=== PATIENT | male | born 1945 | race Caucasian/White ===

== ENCOUNTER 2016-06-14 19:50 | Outpatient (CLI) | payer MEDICARE, MEDICAID ==
[~2016-06-14 19:50] MED LIST: ACET325T49 PO; AMIT10TA6; AMIT10TA6 PO; AMLO10TA82 PO; AMLO5TAB2 PO; ASCO10006 PO; ASCO500C14 PO; ASP325T PO; ASPI-983 PO; BPR150TCR; BPR150TCR PO; BUPR300T43 PO; BUPR300T51 PO; CITA20TA7 PO; CLOT15CR4 TP; CTLP20T PO; DCS100C; DETROL LA; DOCU-161 PO; DOCU100C37 PO; ENOX40DI8 SC; FLC100T1 PO; FLUC100T6 PO; FRSM20T PO; GLPZ5T; HCT25T; INSU100C7 SQ; INSU100I10 SQ; INSU100V3 SC; INSU100V5 SQ; INSU100V6 SQ; IPRA3AMP INH; KCL10CCR PO; LEVO500T69 PO; LEVO750T39 PO; LEVO750T9 PO; LOSA100T28 PO; LOSA50TA36 PO; METF-380 PO; METO-274 PO; METO100T5 PO; METO25TA2 PO; MICO90PO TOP; MTL2.5T; NEBI5TAB8; NF-ESOM40C PO; NF-KET2% TOP; NITR100C3 PO; NORM2DIS3 IV; NYST1POW15 TOP; OMG1KC PO; ONDA-43 PO; ONDAN4ODT PO; OXYC-12 PO; PANT40TA3 PO; PEG250PW; PIOG1TAB2; PNT40TEC PO; POLY119P5 PO; POLY17PO; POLY17PO23 PO; POLY255P PO; POLYETHYLENE GLYCOL; POTA10CA43 PO; RISP2TAB18; RISP2TAB3 PO; RSP2T; RSP2T PO; SCR1T PO; SIMV10TA3 PO; TELM1TAB; TICA90TA PO; TMSL.4C PO; TOLTA4 PO; TRAZ150T42; TRAZ150T42 PO; TRAZ150T72 PO; TROS20TA3 PO; VITA400T9 PO; polyethylene glycol PO
--- OUTSIDE RECORDS SUMMARY | 2016-06-14 21:34 | XMS REPORT | Continuity of Care Document ---
Author Author [facility] Organization [facility] Address Unknown Phone Unavailable Care Team Providers Care [employer] Name Role Phone Daniel Alcantara PCP [phone] Source Comments Some departments are not documenting in the electronic medical record. If you do not see the information that you expected, contact Release of Information in the Health Information Management department at [phone] for further assistance in locating additional records.[facility] Active Allergies and Adverse Reactions Allergen Noted Date Severity Reactions Comments Cymbalta 09/10/2014 Low UNKNOWN Penicillins 09/10/2014 Medium RASH Current Medications Prescription Sig. Disp. Refills Start End Date Status Date risperiDONE (RISPERDAL) 2 Take 2 mg by mouth twice Active mg tablet daily. BUPROPION HCL (WELLBUTRIN Take by mouth. Active PO) traZODone (DESYREL) 150 Take 150 mg by mouth at Active mg tablet bedtime daily. PANTOPRAZOLE SODIUM Take by mouth. Active (PROTONIX PO) METOPROLOL TARTRATE PO Take by mouth. Active AMLODIPINE BESYLATE Take by mouth. Active (AMLODIPINE PO) SIMVASTATIN (ZOCOR PO) Take by mouth. Active INSULIN Inject into area(s) as Active GLARGINE,HUM.REC.ANLOG directed. (LANTUS SC) linagliptin (TRADJENTA) 5 Take 5 mg by mouth daily. Active mg tab trospium(+) (SANCTURA) 20 Take 1 Tab by mouth twice 180 Tab 3 Active mg tablet daily before meals. 16 Active Problems Problem Noted Date Incontinence 11/22/2015 Overview: 11/22/15: Mr. Ann was previously seen by Dr. Mccauley. He has urge and likely overflow incontinence as he is drinking at least 4 liters of fluids soda, tea, coffee, some water per day and only voiding q5h. He takes Flomax for weak stream and has tried multiple anticholinergic medications without relief. 04/14/16: Improved UUI after decreasing fluid intake. Still w/ nocturnal enuresis. History of BOBO and not using CPAP. - Uroflow: qMax 28.4, qAve 131, voided volume 484 mls L ast Assessment & Plan: Daytime symptoms improved with reduction of fluid and caffeine intake. Continues to be bothered by nocturnal enuresis. He has a history of BOBO and does not wear his CPAP; this is likely the cause of his nighttime symptoms. - Continue caffeine and fluid limitation - Encouraged to begin using CPAP again. - Return to clinic PRN. Most Recent Encounters Date Type Specialty Providers Description 04/24/2016 Office Visit Urology Nan Kaufman MD Incontinence ( Primary Dx) Social History Tobacco Use Types Packs/Day Years Used Date Never Smoker Smokeless Tobacco: Never Used Alcohol Use Drinks/Week oz/Week Comments No Last Filed Vital Signs Vital Sign Reading Time Taken Blood Pressure 147/94 04/24/2016 4:02 PM MACHINIST BRAKE Pulse 88 04/24/2016 4:02 PM MACHINIST BRAKE Temperature - - Respiratory Rate 16 11/22/2015 2:32 PM CDT Height 1.753 m (5' 9") 04/24/2016 4:02 PM MACHINIST BRAKE Weight 108.863 kg (240 lb) 04/24/2016 4:02 PM MACHINIST BRAKE Body Mass Index 35.43 04/24/2016 4:02 PM MACHINIST BRAKE Oxygen Saturation - - Plan of Care Health Maintenance Due Date Last Done Comments Hepatitis C Screening 1945 Physical (Comprehensive) 1953 Exam Pertussis Vaccine 1957 Tetanus Vaccine 1963 Dilated Eye Exam 1964 Foot Exam 1964 Microalbumin 1964 Colorectal Cancer 1996 Screening Shingles Vaccine 2006 Prevnar/Pneumovax (#1) 2011 Influenza Vaccine 01/06/2016 Hba1c 05/24/2016 11/22/2015 Results from Last 3 Months Not on file
== END 2016-06-15 06:50 | disposition home or self-care (01) ==
LOC: SLEEP 19:50
PROVIDERS: ATTEND Internal Medicine Cardiovascular Disease
DX: G47.33 Obstructive sleep apnea (adult) (pediatric) (principal)
CPT/HCPCS: 95811

== ENCOUNTER 2016-07-24 14:06 | Observation (INO) | payer MEDICARE ==
[~2016-07-24] VITALS: Ht 172.7 cm; Wt 116.4 kg
--- OUTSIDE RECORDS SUMMARY | 2016-07-24 14:11 | XMS REPORT | Continuity of Care Document ---
Author Author [facility] Organization [facility] Address Unknown Phone Unavailable Care Team Providers Care [employer] Former Name Role Phone Daniel Alcantara PCP [phone] Source Comments Some departments are not documenting in the electronic medical record. If you do not see the information that you expected, contact Release of Information in the Health Information Management department at [phone] for further assistance in locating additional records.[facility] Active Allergies and Adverse Reactions Allergen Noted [...] Recent Encounters Date Type Specialty Providers Description 07/08/2016 Orders Only Urology Carlos Hare PA-C Urinary incontinence, unspecified type (Primary Dx) Social History Tobacco Use Types Packs/Day Years Used Date Never Smoker Smokeless Tobacco: Never Used Alcohol Use Drinks/Week oz/Week Comments No Last Filed Vital Signs Vital Sign Reading Time Taken Blood Pressure 147/94 04/24/2016 4:02 PM DRY MOLDER Pulse 88 04/24/2016 4:02 PM DRY MOLDER Temperature - - Respiratory Rate 16 11/22/2015 2:32 PM CDT Height 1.753 m (5' 9") 04/24/2016 4:02 PM DRY MOLDER Weight 108.863 kg (240 lb) 04/24/2016 4:02 PM DRY MOLDER Body Mass Index 35.43 04/24/2016 4:02 PM DRY MOLDER Oxygen Saturation - - Plan of Care Health Maintenance Due Date Last Done Comments Hepatitis C Screening 1946 Physical (Comprehensive) 1953 Exam Pertussis Vaccine 1957 Tetanus Vaccine 1963 Dilated Eye Exam 1964 Foot Exam 1964 Microalbumin 1964 Colorectal Cancer 1996 Screening Shingles Vaccine 2006 Prevnar/Pneumovax (#1) 2011 Hba1c 05/24/2016 11/22/2015 Influenza Vaccine 01/05/2017 Results from Last 3 Months Not on file
[2016-07-24] MEDS ORDERED: NS IV 500 ML 500 ML IV ONE (14:39)
--- NOTE | 2016-07-24 14:44 | ED General ---
General Chief Complaint: Neurological Problems Stated Complaint: WEAKNESS Nursing Triage Note: TO ED PER EMS FROM [facility]. ACCORDING TO STAFF HAS HAD MUTIPLE ALL FROM SUN - SUNDAY. HAD LAB DRAWN TODAY SHOWED LOW NA. WAS TO GO TO OP AND HAVE FLUIDS. PATIENT TO WEAK TO GET IN VAN CALLED [facility] WITH DR LANCE ORDER TO [facility]. Nursing Sepsis Screen: No Definite Risk Source of Information: Patient, Snf Records Exam Limitations: No Limitations History of Present Illness Time Seen by Provider: 14:43 Initial Comments 71 -year-old male patient presents to the emergency Department with reports of weakness and low sodium on labs earlier today. Patient reportedly was to have outpatient fluids, however staff could not give patient in the plan. Patient was sent to the emergency department for further evaluation. Patient resides at [facility] assisted living. Unable to stand or perform ADLs. Staff reports patient has progressively gotten worse over the last week. has had multiple falls in the last 4 days. Timing/Duration: 4-5 Days, Getting Worse Modifying Factors: worse with Other (denies modifying factors) Allergies and Home Medications Allergies Coded Allergies: Penicillins (Unverified Allergy, Mild, HIVES, 09/19/08) duloxetine HCl (Verified Allergy, Mild, 08/20/11) Home Medications Acetaminophen 325 Mg Tablet, 650 MG PO Q4H PRN for PAIN/TEMP, (Reported) Albuterol Sulfate 1 Puff Puff, 2 PUFF IH Q4H PRN for SHORTNESS OF BREATH, ( Reported) 1 PUFF = 90 MCG Amlodipine Besylate 10 Mg Tablet, 10 MG PO DAILY, (Reported) Ascorbic Acid 1,000 Mg Tablet, 1,500 MG PO DAILY, (Reported) TAKES 1 & 1/2 (1000MG) TABLET Aspirin 81 Mg Tablet.dr, 81 MG PO DAILY, (Reported) Bupropion HCl 100 Mg Tablet, 300 MG PO DAILY, (Reported) Cefdinir 300 Mg Capsule, 300 MG PO BID, #8 Prescribed by: CARLOS COLUNGA on 07/26/16 1122 Citalopram Hydrobromide 20 Mg Tablet, 20 MG PO DAILY, (Reported) Docusate Sodium 100 Mg Capsule, 100 MG PO BID, (Reported) Insulin Glargine,Hum.rec.anlog 100 Unit/1 Ml Insuln.pen, 25 UNITS SQ HS, ( Reported) Levofloxacin 500 Mg Tablet, 500 MG PO DAILY, #10 Ref 0 Prescribed by: TREVOR MCCABE on 08/25/162018 Losartan Potassium 100 Mg Tablet, 100 MG PO DAILY, (Reported) Metoprolol Succinate 50 Mg Tab.er.24h, 50 MG PO BID, (Reported) [place] 3 Polyunsat Fatty Acids 1,000 Mg Cap, 1,000 MG PO BID, (Reported) Pantoprazole Sodium 40 Mg Tablet.dr, 40 MG PO DAILY, (Reported) Risperidone 2 Mg Tablet, 2 MG PO BID, (Reported) Simvastatin 10 Mg Tablet, 10 MG PO HS, (Reported) Ticagrelor 90 Mg Tablet, 90 MG PO DAILY, (Reported) Trazodone HCl 150 Mg Tablet, 150 MG PO HS, (Reported) Trospium Chloride 20 Mg Tablet, 20 MG PO BID, (Reported) Constitutional: No chills, No diaphoresis, No dizziness, No fever, malaise, weakness EENTM: no symptoms reported Respiratory: No cough, No short of breath Cardiovascular: No chest pain, No palpitations, No syncope Gastrointestinal: No abdominal pain, No constipation, No diarrhea, No loss of appetite, No nausea, No vomiting Genitourinary: no symptoms reported Musculoskeletal: no symptoms reported Skin: no symptoms reported Psychiatric/Neurological: See HPI, Denies Headache, Denies Numbness, Denies Paresthesia, Denies Seizure, Denies Tingling, Denies Weakness All Other Systems Reviewed Negative Unless Noted: Yes (Negative excepted noted.) Past Hnafiym-Tszfun-Iadhaq Hx Patient Social History Alcohol Use: Denies Use Recreational Drug Use: No Smoking Status: Former Smoker Type Used: Cigarettes Former Smoker/When Quit: Recent Foreign Travel: No Contact w/Someone Who Travel: No Recent Infectious Disease Expo: No Recent Hopitalizations: Yes (Cardiac stent 2 weeks ago.) Immunizations Up To Date Date of Pneumonia Vaccine: Mar 07, 2010 Seasonal Allergies Seasonal Allergies: No Surgeries HX Surgeries: Yes (CATARACT SURGERY) Surgeries: Coronary Stent, Eye Surgery, Gallbladder Respiratory Hx Respiratory Disorders: Yes (HX OF SEPSIS) Respiratory Disorders: Pneumonia, Chronic Bronchitis, Sleep Apnea, COPD Cardiovascular Hx Cardiac Disorders: Yes (STENT) Cardiac Disorders: Chronic Edema/Swelling, Hypertension Neurological Hx Neurological Disorders: No Neurological Disorders: Neuropathy Reproductive System Hx Reproductive Disorders: No Sexually Transmitted Disease: No HIV/AIDS: No Genitourinary Hx Genitourinary Disorders: Yes (HX OF SEPSIS) Genitourinary Disorders: UTI-Chronic Gastrointestinal Hx Gastrointestinal Disorders: Yes Gastrointestinal Disorders: Gastroesophageal Reflux, Chronic Constipation Musculoskeletal Hx Musculoskeletal Disorders: Yes Musculoskeletal Disorders: Arthritis Endocrine Hx Endocrine Disorders: Yes Endocrine Disorders: Diabetes, Insulin dep HEENT HX ENT Disorders: Yes (ANGIOEDEMA OF TONGUE) HEENT Disorders: Cataract Cancer Hx Cancer: No Psychosocial Hx Psychiatric Problems: Yes Behavioral Health Disorders: Depression Integumentary HX Skin/Integumentary Disorder: No Blood Transfusions Hx Blood Disorders: No Adverse Reaction to a Blood Tr: No Reviewed Nursing Assessment Reviewed/Agree w Nursing PMH: Yes Family Medical History Significant Family History: No Pertinent Family Hx Family Medial History: Family history: Hypertension 03 FATHER Stroke 03 MOTHER Physical Exam Vital Signs Capillary Refill : Less Than 3 Seconds General Appearance: No Apparent Distress, WD/WN, Chronically ill Eyes: Bilateral Eye EOMI, Bilateral Eye Normal Inspection, Bilateral Eye PERRL HEENT: PERRL/EOMI, TMs Normal, Normal ENT Inspection, Pharynx Normal Neck: Full Range of Motion, Normal Inspection, Non Tender, Supple Respiratory: Lungs Clear, Normal Breath Sounds, No Respiratory Distress Cardiovascular: Regular Rate, Rhythm, No Murmur Gastrointestinal: Normal Bowel Sounds, Non Tender, Soft, No Distended Back: Normal Inspection, No CVA Tenderness, No Vertebral Tenderness Extremity: Normal Capillary Refill, Non Tender, Pedal Edema (2+ bilaterally) Neurologic/Psychiatric: Alert, Oriented x3, No Motor/Sensory Deficits, Normal Mood/Affect, shorts sifter II-XII Norm as Tested, Other (patient unable to stand w/o full assist.) Skin: Normal Color, Warm/Dry Focused Exam Lactic Acid Level Progress/Results/Core Measures Results/Orders Lab Results My Orders Medications Given in ED Vital Signs/I&O Blood Pressure Mean: 87 Diagnostic Imaging Diagonstic Imaging: Xray Plain Films/CT/US/NM/MRI: chest Comments FINDINGS: The heart is mildly enlarged. There is mild thickening of the interstitial markings. May be related to vascular congestion with no alveolar edema or focal consolidation. No effusion or pneumothorax. The mediastinum and manju appear markable. IMPRESSION: Cardiomegaly with pulmonary vascular congestion. Dictated by: Dictated on workstation # [id number] Reviewed: Reviewed by Me (radiology report reviewed by me) Departure Communication Time/Spoke to Admitting Phy: 18:[address] Mc accepts patient to his internal medicine service for IV fluids and IV rocephin. Progress Notes Patient case discussed with Francis Mc. Dr. Mc recommends discharging patient to [facility] with follow-up as an outpatient with Dr. Lance. ED staff did attempt to get patient up for ambulation, however patient was unable to stand without full assist. Unable to perform ADLs. Dr. Mc was again contacted. States he will accept patient to his internal medicine service for IV fluids and IV Rocephin. Plan for admission discussed with the patient. Patient voices understanding and agrees with the treatment plan. Patient case discussed with Dr. Kimani Lombardi. He agrees with the plan of care. Impression Impression: Primary Impression: UTI (urinary tract infection) Qualified Codes: N30.00 - Acute cystitis without hematuria Additional Impressions: Hyponatremia Renal insufficiency Generalized weakness Disposition: ADMITTED INPATIENT Condition: Stable Decision to Admit Reason: Admit from ER (General) Decision to Admit/Date: Jul 24, 2016 Time/Decision to Admit Time: 18:35 Departure-Patient Inst. Referrals: VERENA LANCE MD (PCP/Family) Primary Care Physician Scripts Cefdinir (Cefdinir) 300 Mg Capsule 300 MG PO BID, #8 CAP Prov: CARLOS COLUNGA DO 07/26/16 WILLIAM DAVILA Jul 24, 2016 14:43
--- NOTE | 2016-07-24 15:13 | Diagnostic Imaging Report ---
EXAM: Postoperative radiograph of the chest. INDICATION: Weakness. COMPARISON: 04/28/2016. FINDINGS: The heart is mildly enlarged. There is mild thickening of the interstitial markings. May be related to vascular congestion with no alveolar edema or focal consolidation. No effusion or pneumothorax. The mediastinum and manju appear markable. IMPRESSION: Cardiomegaly with pulmonary vascular congestion. Dictated by: Dictated on workstation # [id number]
[2016-07-24] MEDS ORDERED: RT-ALBUTEROL/IPRATROPIUM 3 ML (DUONEB) VIAL INH ONE (15:30)
[2016-07-24 15:43] LABS: CALCIUM 7.9 MG/DL (8.5-10.1); CREATININE SERUM 1.94 MG/DL (0.60-1.30); POTASSIUM 4.6 MMOL/L (3.6-5.0)
[2016-07-24 16:17] LABS: BILIRUBIN,URINE NEGATIVE (NEGATIVE); KETONES,URINE NEGATIVE (NEGATIVE); LEUKOCYTE ESTERASE ,URINE 3+ (NEGATIVE); NITRITE,URINE NEGATIVE (NEGATIVE); PH,URINE 6 (5-9); PROTEIN,URINE 2+ (NEGATIVE); UROBILINOGEN,URINE 1 MG/DL (NORMAL)
[2016-07-24 16:31] LABS: WBC,URINE TNTC /HPF
[2016-07-24] MEDS ORDERED: cefTRIAXone INJECTION 1,000 MG in NS (IVPB) 50 ML IV ONE (17:00)
[2016-07-24] MEDS ORDERED: CATHETER FLUSH 10 ML SYR IV PRN (19:45)
[2016-07-24] MEDS: cefTRIAXone 1 GM/NS 50 ML IVPB IV SCH ×2 (20:38)
[2016-07-24] MEDS: NS IV 1000 ML 1,000 ML IV SCH (20:46)
[2016-07-25] VITALS (8 sets, daily range): BP systolic 148–190; BP diastolic 69–92
[2016-07-25] MEDS: NS IV 1000 ML 1,000 ML IV SCH ×2 (03:45→06:13)
[2016-07-25] MEDS: FUROSEMIDE 40 MG/4 ML INJ (LASIX) IV SCH (06:13)
[2016-07-25 06:15] LABS: BASOPHILS % (AUTO) 0 % (0-10); EOSINOPHILS # (AUTO) 0.4 10^3/uL (0.0-0.3); EOSINOPHILS % (AUTO) 4 % (0-10); LYMPHOCYTES # (AUTO) 1.2 X 10^3 (1.0-4.0); LYMPHOCYTES % (AUTO) 14 % (12-44); MEAN CORPUSCULAR HEMOGLOBIN 31 PG (25-34); MEAN CORPUSCULAR HGB CONC 34 G/DL (32-36); MEAN CORPUSCULAR VOLUME 91 FL (80-99); MEAN PLATELET VOLUME 9.8 FL (7.4-10.4); MONOCYTES # (AUTO) 1.1 X 10^3 (0.0-1.0); MONOCYTES % (AUTO) 13 % (0-12); NEUTROPHILS # (AUTO) 5.9 X 10^3 (1.8-7.8); NEUTROPHILS % (AUTO) 69 % (42-75); PLATELET COUNT 163 10^3/uL (130-400); RED BLOOD COUNT 3.72 10^6/uL (4.35-5.85); RED CELL DISTRIBUTION WIDTH 13.6 % (10.0-14.5); WHITE BLOOD COUNT 8.5 10^3/uL (4.3-11.0)
[2016-07-25 06:41] LABS: ALBUMIN 3.3 G/DL (3.2-4.5); BILIRUBIN,TOTAL 0.5 MG/DL (0.1-1.0); CALCIUM 8.2 MG/DL (8.5-10.1); CREATININE SERUM 1.68 MG/DL (0.60-1.30); POTASSIUM 4.3 MMOL/L (3.6-5.0); TOTAL PROTEIN 6.5 G/DL (6.4-8.2)
--- NOTE | 2016-07-25 08:45 | Diagnostic Imaging Report ---
INDICATION: Dyspnea, generalized weakness. DISCUSSION: Single portable upright view of the chest was obtained, comparison 07/24/2016. The heart is normal in size on today's exam. Mild prominence of the central pulmonary vascularity has decreased. No ji pulmonary edema identified. No focal consolidation, pleural fluid, or pneumothorax. No osseous abnormality identified. IMPRESSION: 1. Improving aeration of the bilateral lungs. No ji failure. Dictated by: Dictated on workstation # [id number]
[2016-07-25] MEDS ORDERED: ASPI-983 PO (09:01)
[2016-07-25] MEDS ORDERED: AMLO10TA2 PO (09:01)
[2016-07-25] MEDS ORDERED: BUPR100T15 PO (09:01)
[2016-07-25] MEDS ORDERED: RT-ALBUINH IH (09:01)
[2016-07-25] MEDS ORDERED: METO-272 PO (09:01)
[2016-07-25] MEDS ORDERED: ACET325T38 PO (09:01)
[2016-07-25] MEDS ORDERED: TICA90TA PO (09:01)
[2016-07-25] MEDS ORDERED: SULF-222 PO (09:06)
[2016-07-25] MEDS ORDERED: CATHETER FLUSH 10 ML SYR IV PRN (11:00)
[2016-07-25] MEDS ORDERED: ACETAMINOPHEN 325 MG TABLET/CAPLET (TYLENOL) PO PRN (11:00)
[2016-07-25] MEDS ORDERED: FLU TRIvalent (5 YOA+) 2016-17 (AFLURIA) 0.5 ML IM ONE (11:00)
--- NOTE | 2016-07-25 11:01 | History & Physical-Hospitalist ---
HPI History of Present Illness: HPI/Chief Complaint CC: Confusion w/falls HPI: This is a 71-year-old white male clinic patient of Dr. Alcantara's the bedside to [facility] assisted living with a past medical history of diabetes, hypertension and overall debility requiring assisted living placement. He presented to the emergency room with confusion and falls found to have a UTI placed on Rocephin empirically placed on fluids to support. He at this current time denies any pain ready to get up and around and denies any other situations. I review his home medication list and restarted all. Source: patient Exam Limitations: no limitations Date Seen 07/25/16 Attending Physician Francis Mc MD PCP Bhaskar Alcantara MD Referring Physician Date of Admission Jul 24, 2016 at 18:47 Home Medications & Allergies Home Medications Reviewed patient Home Medication Reconciliation Form Allergies Allergies Coded Allergies Penicillins (Unverified Allergy, Mild, HIVES, 09/19/08) duloxetine HCl (Verified Allergy, Mild, 08/20/11) Past Uynidhe-Ubfhbl-Zlwjcq Hx Patient Social History Employed/Student: retired Alcohol Use: Denies Use Recreational Drug Use: No Smoking Status: Former Smoker Former smoker/When Quit: Type Used: Cigarettes Physical Abuse Screen: No Sexual Abuse: No Recent Foreign Travel: No Contact w/other who traveled: No Recent Hopitalizations: Yes (Cardiac stent 2 weeks ago.) Recent Infectious Disease Expo: No Immunizations Up To Date Date of Pneumonia Vaccine: Mar 07, 2010 Date of Influenza Vaccine: Mar 07, 2017 Seasonal Allergies Seasonal Allergies: No Surgeries HX Surgeries: Yes (CATARACT SURGERY) Surgeries: Coronary Stent, Eye Surgery, Gallbladder Respiratory Hx Respiratory Disorders: Yes (HX OF SEPSIS) Respiratory Disorders: Sleep Apnea Cardiovascular Hx Cardiovascular Disorders: Yes (STENT) Cardiac Disorders: Chronic Edema/Swelling, Hypertension Neurological Hx Neurological Disorders: Yes Neurological Disorders: Dementia, Neuropathy Reproductive System Hx Reproductive Disorders: No Sexually Transmitted Disease: No HIV/AIDS: No Genitourinary Hx Genitourinary Disorders: Yes (HX OF SEPSIS) Genitourinary Disorders: UTI-Chronic Gastrointestinal Hx Gastrointestinal Disorders: Yes Gastrointestinal Disorders: Gastroesophageal Reflux, Chronic Constipation Musculoskeletal Hx Musculoskeletal Disorders: Yes Musculoskeletal Disorders: Arthritis Endocrine Hx Endocrine Disorders: Yes Endocrine Disorders: Diabetes, Insulin dep HEENT HX ENT Disorders: Yes (ANGIOEDEMA OF TONGUE) HEENT Disorders: Cataract Hearing Impairment: Hard of Hearing Cancer Hx Cancer: No Psychosocial Hx Psychiatric Problems: Yes Behavioral Health Disorders: Depression Integumentary HX Skin/Integumentary Disorder: No Blood Transfusions Hx Blood Disorders: No Adverse Reaction to a Blood Tr: No Family Medical History Significant Family History: No Pertinent Family Hx Family Hx: Family history: Hypertension 03 FATHER Stroke 03 MOTHER Review of Systems Constitutional: dizziness weakness EENTM: no symptoms reported Respiratory: no symptoms reported Cardiovascular: no symptoms reported Gastrointestinal: no symptoms reported Genitourinary: no symptoms reported Musculoskeletal: back pain Skin: no symptoms reported Psychiatric/Neurological: No Symptoms Reported All Other Systems Reviewed Negative Unless Noted: Yes Physical Exam Physical Exam Vital Signs Vital Sign - Last 12Hours 07/24/16 07/24/16 07/24/16 14:06 15:44 19:30 Temp 99.8 Pulse 74 Resp 18 B/P 116/73 Pulse Ox 96 O2 Delivery Nasal Cannula O2 Flow Rate 2 Capillary Refill : Less Than 3 Seconds General Appearance: No Apparent Distress WD/WN Chronically ill Obese Eyes: Bilateral Eye Normal Inspection, Bilateral Eye PERRL HEENT: PERRL/EOMI Normal ENT Inspection Pharynx Normal Neck: Full Range of Motion Normal Inspection Non Tender Supple Carotid Bruit Respiratory: Chest Non Tender Lungs Clear Normal Breath Sounds No Accessory Muscle Use No Respiratory Distress Cardiovascular: Regular Rate, Rhythm No Edema No Gallop No JVD No Murmur Normal Peripheral Pulses Gastrointestinal: Normal Bowel Sounds No Organomegaly No Pulsatile Mass Non Tender Soft Back: Normal Inspection No CVA Tenderness No Vertebral Tenderness Extremity: Normal Capillary Refill Normal Inspection Normal Range of Motion Non Tender No Calf Tenderness No Pedal Edema Neurologic/Psychiatric: Alert Oriented x3 No Motor/Sensory Deficits Depressed Affect Skin: Normal Color Warm/Dry Ecchymosis (right back) Lymphatic: No Adenopathy Results Results/Procedures Lab Laboratory Tests 07/24/16 14:15 07/25/16 06:00 Assessment/Plan Admission Diagnosis Assessment: Falls with acute UTI placed on Rocephin empirically Diabetes mellitus Hypertension Sleep apnea Overall debility Hyponatremia Assessment and Plan Plan: Maintain Rocephin empirically Follow up on urine culture Hep-locked IV fluid Accu-Cheks twice a day Reconcile all home medications and restarted all Physical therapy evaluation Clinical Quality Measures DVT/VTE Risk/Contraindication: Risk Factor Score Per Nursin RFS Level Per Nursing on Admit: 4+=Very High CARLOS COLUNGA DO Jul 25, 2016 11:01
[2016-07-25] MEDS ORDERED: RT-ALBUTEROL SULF 2.5 MG/3 ML PRE-MIX VIAL INH PRN (11:15)
[2016-07-25] MEDS: ASCORBIC ACID (VIT C) 500 MG TABLET PO SCH (11:48)
--- NOTE | 2016-07-25 12:42 | Physical Therapy Evaluation ---
PT Evaluation-General Medical Diagnosis Admission Date Jul 24, 2016 at 18:47 Medical Diagnosis: UTI Onset Date: Jul 24, 2016 Therapy Diagnosis Therapy Diagnosis: weakness; abn gait Height/Weight Height (Feet): 5 Height (Inches): 8.00 Weight (Pounds): 256 Weight (Ounces): 9.0 Precautions Precautions/Isolations: Standard Precautions Referral Physician: Fanta Reason for Referral: Evaluation/Treatment Medical History Pertinent Medical History: Arthritis, CAD, COPD, DM, Dementia, HTN, Neuropathy Current History Pt admitted to hospital with UTI, hyponatremia, ARF, AMS. Reviewed History: Yes Social History Home: Assisted Living ([place]) Current Living Status: Entry Into Home: Level Entry Prior/Core FIM Prior Level of Function Functional [place] Measure 0=Not Assessed/NA 4=Minimal Assistance 1=Total Assistance 5=Supervision or Setup 2=Maximal Assistance 6=Modified [place] 3=Moderate Assistance 7=Complete [place] Bed Mobility: 6 Transfers (B,C,W/C) (FIM): 6 Gait: 6 Pt reports that he does have assist with ADLs at the [facility] PT Evaluation-Current Subjective Agreable to PT to get up in the chair. No complaints. Pain Numeric Pain Scale: 0-No Pain Location: No Pain Reported Pt/Family Goals Pt reports his goals are to return to [facility] Objective Patient Orientation: Person, Place, Time, Situation Problem Solving: Fair ROM/Strength ROM Lower Extremities Functional but limited by soft tissue Strenght Lower Extremities grossly 4-/5 throughout Integumentary/Posture Integumentary refer to nursing notes. Posture slight rounded shoulders Neuromuscular (Tone, Coordination, Reflexes) no noted functional deficits Sensory Vision: Functional Hearing: Functional Hand Dominance: Right Sensation Right Lower Extremit: Intact Sensation Left Lower Extremity: Intact Transfers Functional [place] Measure 0=Not Assessed/NA 4=Minimal Assistance 1=Total Assistance 5=Supervision or Setup 2=Maximal Assistance 6=Modified [place] 3=Moderate Assistance 7=Complete [place] Transfers (B, C, W/C) (FIM): 4 Supine to/from Sit: 4 Sit to/from Stand: 4 Min assist with bed mob and sit to stand. Requires skilled cues to sequence the transfer and for hand placement Gait Comments/Gait Description Pt took 5-6 steps with FWW to transfer to the chair with CGA. Pt able to turn without LOB noted. Balance Sitting Static: Good Sitting Dynamic: Good Standing Static: Fair Treatment Pt up in chair post treatment with O2 in situ and needs met. Assessment/Needs Pt presents with decreased functional strength that impairs functional mobility. He will benfit from skilled PT services to promote transfers and gait to allow him to return to [facility] at [facility]. Rehab Potential: Good PT Oim Architect Goals Chcf Goals PT Oim Architect Goals Time Frame: Aug 01, 2016 Transfers (B,C,W/C) (FIM): 6 Gait (FIM): 6 PT Plan Problem List Problem List: Activity Tolerance, Functional Strength, Safety, Balance, Gait, Transfer, Bed Mobility Treatment/Plan Treatment Plan: Continue Plan of Care Treatment Plan: Bed Mobility, Education, Functional Activity Emhdi, Functional Strength, Gait, Safety, Therapeutic Exercise, Transfers Treatment Duration: Aug 01, 2016 # of days/week 5-6 Visits Per Week: 5-6 Pt/Family Agrees w/Plan: Yes Safety Risks/Education Patient Education: Transfer Techniques, Safety Issues Teaching Recipient: Patient Teaching Methods: Demonstration, Discussion Response to Teaching: Reinforcement Needed Time/GCodes Time In: 1055 Time Out: 1112 Total Billed Treatment Time: 17 Total Billed Treatment visit EVM 17; 2 personal factors--ARF, AMS, UTI; 3 areas affected--LE strength, assist with transfers, assist with gait; changing characteristics due to UTI G Codes Necessary: Yes PT/OT Therapy GCodes Therapy Functional Limitation: Physical Therapy Test(s)/Tool used to determine: Level of Assistance Scale Functional Limitation-Current Charge Code: MOBCUR Modifier: CK Functional Limitation-Goal Charge Code: MOBGOAL Modifier: SASHA TAM PT Jul 25, 2016 12:42
[2016-07-25] MEDS: OMEGA 3 (FISH OIL) 1000 MG CAP PO SCH (16:03)
[2016-07-25] MEDS: TROSPIUM 20 MG (SANCTURA) TAB PO SCH (16:03)
[2016-07-25] MEDS: CATHETER FLUSH 10 ML SYR IV SCH ×2 (16:04→22:00)
[2016-07-25] MEDS: cefTRIAXone 1 GM/NS 50 ML IVPB IV SCH ×2 (17:25)
[2016-07-25] MEDS ORDERED: SIMvastatin 10 MG (ZOCOR) TAB PO SCH (21:00)
[2016-07-25] MEDS ORDERED: traZODone 150 MG (DESYREL) TABLET PO SCH (21:00)
[2016-07-25] MEDS ORDERED: inSUlin DETERMIR 1 UNIT/0.01 ML (LEVEMIR) CHARGE PER UNIT SQ SCH (21:00)
[2016-07-25] MEDS: DOCUSATE SODIUM 100 MG (COLACE) CAP PO SCH (21:59)
[2016-07-25] MEDS: meTOproloL SUCCINATE 50 MG (TOPROL XL) TAB PO SCH (22:00)
[2016-07-25] MEDS: risperiDONE 2 MG (RisperDAL) TAB PO SCH (22:00)
[2016-07-26 04:30] VITALS: BP 152/78
[2016-07-26] MEDS ORDERED: PANTOPRAZOLE 40 MG (PROTONIX) TAB PO SCH (07:00)
[2016-07-26] MEDS: OMEGA 3 (FISH OIL) 1000 MG CAP PO SCH (07:02)
[2016-07-26] MEDS: ASCORBIC ACID (VIT C) 500 MG TABLET PO SCH (07:02)
[2016-07-26] MEDS: FUROSEMIDE 40 MG/4 ML INJ (LASIX) IV SCH (07:02)
[2016-07-26] MEDS: TROSPIUM 20 MG (SANCTURA) TAB PO SCH (07:02)
[2016-07-26] MEDS: CATHETER FLUSH 10 ML SYR IV SCH (07:15)
[2016-07-26 08:00] VITALS: BP 157/79
[2016-07-26] MEDS: risperiDONE 2 MG (RisperDAL) TAB PO SCH (08:45)
[2016-07-26] MEDS: meTOproloL SUCCINATE 50 MG (TOPROL XL) TAB PO SCH (08:45)
[2016-07-26] MEDS: DOCUSATE SODIUM 100 MG (COLACE) CAP PO SCH (08:45)
[2016-07-26] MEDS ORDERED: ASPIRIN E.C. 81 MG (ECOTRIN) TAB PO SCH (09:00)
[2016-07-26] MEDS ORDERED: TICAGRELOR 90 MG TABLET (BRILINTA) PO SCH (09:00)
[2016-07-26] MEDS ORDERED: amLODIPine 10 MG (NORVASC) TAB PO SCH (09:00)
[2016-07-26] MEDS ORDERED: LOSARTAN 50 MG (COZAAR) TAB PO SCH (09:00)
[2016-07-26] MEDS ORDERED: buPROPion 100 MG (WELLBUTRIN) TAB PO SCH (09:00)
[2016-07-26] MEDS ORDERED: LACTULOSE SYRUP 10GM/15ML (ENULOSE) 30ML UDC PO NR (09:45)
--- NOTE | 2016-07-26 11:08 | Discharge Summary-Hospitalist ---
Diagnosis/Chief Complaint Date of Admission Jul 24, 2016 at 18:47 Date of Discharge Admission Diagnosis Assessment: Falls with acute UTI placed on Rocephin empirically Diabetes mellitus Hypertension Sleep apnea Overall debility Hyponatremia Discharge Diagnosis Assessment: Falls with acute UTI placed on Rocephin empirically Diabetes mellitus Hypertension Sleep apnea Overall debility Hyponatremia Plan: Maintain Rocephin empirically Follow up on urine culture Hep-locked IV fluid Accu-Cheks twice a day Reconcile all home medications and restarted all Physical therapy evaluation Reason Hospital Visit/Course CC: Confusion w/falls HPI: This is a 71-year-old white male clinic patient of Dr. Alcantara's the bedside to [facility] living with a past medical history of diabetes, hypertension and overall debility requiring assisted living placement. He presented to the emergency room with confusion and falls found to have a UTI placed on Rocephin empirically placed on fluids to support. He at this current time denies any pain ready to get up and around and denies any other situations. I review his home medication list and restarted all. Notes from 07/26/2016: Chart Review: No fever Vitals stable Ucx pending Patient Interview: Pt states that he has not had a BM recently. Pt states that he feels good overall, and agrees with DC plans if lab results are stable. Physical exam stable. Pt states that he does not normally take bowel meds, but would like some now. No fever, vital signs stable, pleasant Regular rate and rhythm, clear to auscultation bilaterally No edema Plan: Lactulose Check labs Likely DC to assisted living Scribed by Serjio Bueno under the direct supervision of Dr. Jewell. Hospital course: Patient had a brief hospital course he was hospitalized placed on gentle IV fluids and empirically placed on Rocephin. Urine culture dated 02/20 reviewed that was normal denny with the same too numerous to count white blood cells along with RBCs so unsure of the relevance of that but urine culture at the time of discharge was pending and will be closely followed up with Dr. Alcantara and creatinine was back to his baseline in addition his sodium level had improved to 134. Overall debility precludes anything but a poor prognosis long-term. Discharge Summary Discharge Physical Examination Allergies: Coded Allergies: Penicillins (Unverified Allergy, Mild, HIVES, 09/19/08) duloxetine HCl (Verified Allergy, Mild, 08/20/11) Vitals & I&Os Vital Signs Date Time Temp Pulse Resp B/P (MAP) Pulse Ox O2 Delivery O2 Flow Rate FiO2 07/26/16 08:30 Nasal Cannula 3.50 07/26/16 08:00 98.0 79 20 157/79 95 Hospital Course Labs (last 24 hrs) Laboratory Tests 07/25/16 15:46: Glucometer 179H 07/26/16 06:20: Glucometer 161H 07/26/16 11:04: White Blood Count 7.9, Red Blood Count 4.15L, Hemoglobin 12.4L, Hematocrit 37L, Mean Corpuscular Volume 90, Mean Corpuscular Hemoglobin 30, Mean Corpuscular Hemoglobin Concent 33, Red Cell Distribution Width 13.4, Platelet Count 172, Mean Platelet Volume 10.2, Neutrophils (%) (Auto) 61, Lymphocytes (%) (Auto) 22 , Monocytes (%) (Auto) 13H, Eosinophils (%) (Auto) 4, Basophils (%) (Auto) 0, Neutrophils # (Auto) 4.8, Lymphocytes # (Auto) 1.8, Monocytes # (Auto) 1.0, Eosinophils # (Auto) 0.3, Basophils # (Auto) 0.0, Sodium Level 132L, Potassium Level 4.3, Chloride Level 95L, Carbon Dioxide Level 27, Anion Gap 10, Blood Urea Nitrogen 19H, Creatinine 1.67H, Estimat Glomerular Filtration Rate 41, BUN/ Creatinine Ratio 11, Glucose Level 196H, Calcium Level 9.1, Total Bilirubin 0.6 , Aspartate Amino Transf (AST/SGOT) 11, Alanine Aminotransferase (ALT/SGPT) 9, Alkaline Phosphatase 72, Total Protein 6.8, Albumin 3.5 Microbiology 07/24/16 Urine Culture - Preliminary, Resulted Pending Labs Laboratory Tests 07/26/16 06:20: Glucometer 161 07/26/16 11:04: White Blood Count 7.9, Red Blood Count 4.15, Hemoglobin 12.4, Hematocrit 37, Mean Corpuscular Volume 90, Mean Corpuscular Hemoglobin 30, Mean Corpuscular Hemoglobin Concent 33, Red Cell Distribution Width 13.4, Platelet Count 172, Mean Platelet Volume 10.2, Neutrophils (%) (Auto) 61, Lymphocytes (%) (Auto) 22 , Monocytes (%) (Auto) 13, Eosinophils (%) (Auto) 4, Basophils (%) (Auto) 0, Neutrophils # (Auto) 4.8, Lymphocytes # (Auto) 1.8, Monocytes # (Auto) 1.0, Eosinophils # (Auto) 0.3, Basophils # (Auto) 0.0, Sodium Level 132, Potassium Level 4.3, Chloride Level 95, Carbon Dioxide Level 27, Anion Gap 10, Blood Urea Nitrogen 19, Creatinine 1.67, Estimat Glomerular Filtration Rate 41, BUN/ Creatinine Ratio 11, Glucose Level 196, Calcium Level 9.1, Total Bilirubin 0.6, Aspartate Amino Transf (AST/SGOT) 11, Alanine Aminotransferase (ALT/SGPT) 9, Alkaline Phosphatase 72, Total Protein 6.8, Albumin 3.5 Discharge Home Medications: Active Scripts Active Cefdinir 300 Mg Capsule 300 Mg PO BID Reported Sulfamethoxazole-Tmp Ds Tablet (Sulfamethoxazole/Trimethoprim) 1 Each Tablet 1 Tab PO BID 14 Days 14 DAY THEARPY ORDERED 07-14-16 Tylenol (Acetaminophen) 325 Mg Tablet 650 Mg PO Q4H PRN Ventolin Hfa (Albuterol Sulfate) 1 Puff Puff 2 Puff IH Q4H PRN 1 PUFF = 90 MCG Aspirin EC (Aspirin) 81 Mg Tablet.dr 81 Mg PO DAILY Amlodipine Besylate 10 Mg Tablet 10 Mg PO DAILY Metoprolol Succinate 50 Mg Tab.er.24h 50 Mg PO BID Bupropion HCl 100 Mg Tablet 300 Mg PO DAILY Brilinta (Ticagrelor) 90 Mg Tablet 90 Mg PO DAILY Trazodone HCl 150 Mg Tablet 150 Mg PO HS Risperidone 2 Mg Tablet 2 Mg PO BID Losartan Potassium 100 Mg Tablet 100 Mg PO DAILY Trospium Chloride 20 Mg Tablet 20 Mg PO BID Docusate Sodium 100 Mg Capsule 100 Mg PO BID Vitamin C (Ascorbic Acid) 1,000 Mg Tablet 1,500 Mg PO DAILY TAKES 1 & 1/2 (1000MG) TABLET Fish Oil 1,000 mg Capsule ([place] 3 Polyunsat Fatty Acids) 1,000 Mg Cap 1,000 Mg PO BID Simvastatin 10 Mg Tablet 10 Mg PO HS Citalopram HBr (Citalopram Hydrobromide) 20 Mg Tablet 20 Mg PO DAILY Pantoprazole Sodium 40 Mg Tablet.dr 40 Mg PO DAILY Lantus Solostar (Insulin Glargine,Hum.rec.anlog) 100 Unit/1 Ml Insuln.pen 25 Units SQ HS Instructions to patient/family Please see electonic discharge instructions given to patient. Clinical Quality Measures DVT/VTE Risk/Contraindication: Risk Factor Score Per Nursin RFS Level Per Nursing on Admit: 4+=Very High CARLOS JEWELL DO Jul 26, 2016 11:08
[2016-07-26 11:14] LABS: BASOPHILS % (AUTO) 0 % (0-10); EOSINOPHILS # (AUTO) 0.3 10^3/uL (0.0-0.3); EOSINOPHILS % (AUTO) 4 % (0-10); LYMPHOCYTES # (AUTO) 1.8 X 10^3 (1.0-4.0); LYMPHOCYTES % (AUTO) 22 % (12-44); MEAN CORPUSCULAR HEMOGLOBIN 30 PG (25-34); MEAN CORPUSCULAR HGB CONC 33 G/DL (32-36); MEAN CORPUSCULAR VOLUME 90 FL (80-99); MEAN PLATELET VOLUME 10.2 FL (7.4-10.4); MONOCYTES % (AUTO) 13 % (0-12); NEUTROPHILS # (AUTO) 4.8 X 10^3 (1.8-7.8); NEUTROPHILS % (AUTO) 61 % (42-75); PLATELET COUNT 172 10^3/uL (130-400); RED BLOOD COUNT 4.15 10^6/uL (4.35-5.85); RED CELL DISTRIBUTION WIDTH 13.4 % (10.0-14.5); WHITE BLOOD COUNT 7.9 10^3/uL (4.3-11.0)
[2016-07-26] MEDS ORDERED: CEFD300C3 PO (11:22)
--- NOTE | 2016-07-26 11:30 | Discharge Inst-Home Health ---
Discharge Inst-to Home Health Patient Instructions Patient Instructions/FollowUp: Obtain close follow up with Dr Alcantara this week to evaluate bladder status Patient Problems: UTI Debility HTN VIA [place], [place] DISCHARGE ORDERS Allergies: Coded Allergies: Penicillins (Unverified Allergy, Mild, HIVES, 09/19/08) duloxetine HCl (Verified Allergy, Mild, 08/20/11) Height (Feet): 5 Height (Inches): 8.00 Weight (Pounds): 256 Weight (Ounces): 9.0 Weight (Kilograms): 111.4 Home Health Need/Face to Face Reason Pt Homebound weakness, dementia I Have Seen Pt [id number]: Yes Date of Face to Face: Jul 26, 2016 Discharged To: Home Diagnosis/Conditions HH Order: Physical therapy at home Consult/Follow Up/New Order *I certify that based on my findings, the following services are medically necessary Home Health Services: Services: Physical Therapy-Evaluate & Treat My clinical findings support the need for the above services; see Diagnosis. Dicharge Diet: Cardiac Diet Pneu Vac Indicated: Yes Discharge Medications: New, Converted, or Re-newed RX: Transmited to Pharmacy I certify that this patient is under my care and that I, a nurse practitioner or a physician; a records assistant working with me, had a face to face encounter that - meets the physician face to face encounter requirements with this patient as dated. CARLOS COLUNGA DO Jul 26, 2016 11:30
[2016-07-26 11:32] LABS: ALBUMIN 3.5 G/DL (3.2-4.5); BILIRUBIN,TOTAL 0.6 MG/DL (0.1-1.0); CALCIUM 9.1 MG/DL (8.5-10.1); CREATININE SERUM 1.67 MG/DL (0.60-1.30); POTASSIUM 4.3 MMOL/L (3.6-5.0); TOTAL PROTEIN 6.8 G/DL (6.4-8.2)
--- NOTE | 2016-07-26 11:45 | Physical Therapy Daily Note ---
PT Daily Note-Current Subjective Pt in bed, agreeable to up to chair with encouragement. Denied pain. Mental Status Patient Orientation: Person, Place, Time, Situation Attachments: Oxygen Transfers Functional [place] Measure 0=Not Assessed/NA 4=Minimal Assistance 1=Total Assistance 5=Supervision or Setup 2=Maximal Assistance 6=Modified [place] 3=Moderate Assistance 7=Complete IndependenceIRFPAI Quality Coding Scale 6 Independent with activity with or without an assistive device 5 Patient requires set up or clean up by helper. Patient completes activity by themselves 4 Supervision or touching assist (CGA). [place] provide cues , steadying assist 3 The helper provides less than half the effort to complete the activity 2 The helper provides more than half the effort to complete the activity 1 Dependent. The helper does all the effort to complete an activity 7 Patient refused to complete or attempt activity 9 The patient did not perform the activity before the current illness or injury 88 Not attempted due to Medical conditions or safety concerns Supine to/from Sit: 3 Sit to/from Stand: 4 Bed to/from Chair: 4 Mod A x 1 supine->sit. Required assist to move fully to EOB. Min A x 1 sit-> Stand Weight Bearing Weight Bearing Restriction: Full Weight Bearing Location Restriction: LE Bilateral Gait Training Gait (FIM): 1 Distance (FIM): 1=up to 49 ft Distance: 3' Gait Level of Assist: 4 Gait Persons Needed: 1 Gait Assistive Device: FWW Bed->chair with FWW with CGA-SBA. VCS for safety when approaching chair to sit. Short, shuffling steps but no LOB. Exercises Seated Therapy Exercises: Ankle pumps, Long arc quads, Hip flexion Seated Reps: 10 Treatments TFR training, seated LE functional strengthening. Up in chair with O2 in situ, needs met. Assessment Current Status: Fair Progress Pt tolerated well. Difficulty moving from sidelying->sit EOB. Unable to (I) scoot to EOB once up, requiring mod A x 1. Good static sitting balance at EOB once established. PT Foundry Tender Goals Foundry Tender Goals PT Foundry Tender Goals Time Frame: Aug 01, 2016 Transfers (B,C,W/C) (FIM): 6 Gait (FIM): 6 PT Plan Problem List Problem List: Activity Tolerance, Functional Strength, Safety, Balance, Gait, Transfer, Bed Mobility Treatment/Plan Treatment Plan: Continue Plan of Care Treatment Plan: Bed Mobility, Education, Functional Activity Mehdi, Functional Strength, Gait, Safety, Therapeutic Exercise, Transfers Treatment Duration: Aug 01, 2016 # of days/week 5-6 Visits Per Week: 5-6 Pt/Family Agrees w/Plan: Yes Safety Risks/Education Teaching Recipient: Patient Teaching Methods: Discussion Response to Teaching: Verbalize Understanding, Reinforcement Needed Importance of increasing activity, time OOB Discharge Recommendations Therapy D/C Recommendations: Assisted Living, Physical Therapy Home Care, Physical Therapy Outpatient Time/GCodes Time In: 1113 Time Out: 1130 Total Billed Treatment Time: 17 Total Billed Treatment 1, FA x 12' (EX x 5') G Codes Necessary: No PT/OT Therapy GCodes Therapy Functional Limitation: Physical Therapy Test(s)/Tool used to determine: Level of Assistance Scale Functional Limitation-Current Charge Code: MOBCUR Modifier: CK Functional Limitation-Goal Charge Code: MOBGOAL Modifier: KANIKA LEVIN DPT Jul 26, 2016 11:45
[2016-07-26 12:00] VITALS: BP 169/89
== END 2016-07-26 11:21 ==
LOC: DELPENDDIS → EDUNIT# 14:06 → ER 14:07 → UNDOADMOB 18:47 → 4TH 18:47 → UNDODISOB 07-26 11:21
PROVIDERS: ADMIT Internal Medicine; ATTEND Internal Medicine
DX: N39.0 Urinary tract infection, site not specified (principal); E87.1 Hypo-osmolality and hyponatremia; E11.9 Type 2 diabetes mellitus without complications; Z79.4 Long term (current) use of insulin; I10 Essential (primary) hypertension; J44.9 Chronic obstructive pulmonary disease, unspecified; K21.9 Gastro-esophageal reflux disease without esophagitis; G47.30 Sleep apnea, unspecified; Z91.81 History of falling; Z95.5 Presence of coronary angioplasty implant and graft
CPT/HCPCS: 36415; 71010; 80048; 80053; 81000; 82962; 83880; 85025; 85379; 87088; 94640; 94760; 96365; G0378

== ENCOUNTER 2016-08-25 18:29 | Emergency (ER) | payer MEDICARE ==
[~2016-08-25] VITALS: Ht 172.7 cm; Wt 116.4 kg
[~2016-08-25 18:29] MED LIST changes: +ACET325T38 PO; +AMLO10TA2 PO; +BUPR100T15 PO; +CEFD300C3 PO; +METO-272 PO; +RT-ALBUINH IH; +SULF-222 PO
--- NOTE | 2016-08-25 18:35 | ED GU-Male ---
General Stated Complaint: BLOOD IN URINE Source: patient, EMS, RN notes reviewed, custodial records Exam Limitations: no limitations, other (patient mildly confused) History of Present Illness Time seen by provider: 18:55 Initial Comments As above and below. Recently here and dx c/ UTI and received Rocephin and, I believe, Omnicef. C&S was contaminated. Patient's only complaint is some burning c/ urination. Timing/Duration: this afternoon Severity/Quality: moderate, burning Location: urethral Radiation: none Activities at Onset: none Prior Genitourinary Problems: similar symptoms Sexual Mangum History: not active Modifying Factors: Worsens With Urinating Associated Symptoms: dysuria, urinary frequency Allergies and Home Medications Allergies Coded Allergies: Penicillins (Unverified Allergy, Mild, HIVES, 09/19/08) duloxetine HCl (Verified Allergy, Mild, 08/20/11) Home Medications Acetaminophen 325 Mg Tablet, 650 MG PO Q4H PRN for PAIN/TEMP, (Reported) Albuterol Sulfate 1 Puff Puff, 2 PUFF IH Q4H PRN for SHORTNESS OF BREATH, ( Reported) 1 PUFF = 90 MCG Amlodipine Besylate 10 Mg Tablet, 10 MG PO DAILY, (Reported) Ascorbic Acid 1,000 Mg Tablet, 1,500 MG PO DAILY, (Reported) TAKES 1 & 1/2 (1000MG) TABLET Aspirin 81 Mg Tablet.dr, 81 MG PO DAILY, (Reported) Bupropion HCl 100 Mg Tablet, 300 MG PO DAILY, (Reported) Cefdinir 300 Mg Capsule, 300 MG PO BID, #8 Prescribed by: CARLOS COLUNGA on 07/26/16 1122 Citalopram Hydrobromide 20 Mg Tablet, 20 MG PO DAILY, (Reported) Docusate Sodium 100 Mg Capsule, 100 MG PO BID, (Reported) Insulin Glargine,Hum.rec.anlog 100 Unit/1 Ml Insuln.pen, 25 UNITS SQ HS, ( Reported) Levofloxacin 500 Mg Tablet, 500 MG PO DAILY, #10 Ref 0 Prescribed by: TREVOR MCCABE on 08/25/16 2019 Losartan Potassium 100 Mg Tablet, 100 MG PO DAILY, (Reported) Metoprolol Succinate 50 Mg Tab.er.24h, 50 MG PO BID, (Reported) [place] 3 Polyunsat Fatty Acids 1,000 Mg Cap, 1,000 MG PO BID, (Reported) Pantoprazole Sodium 40 Mg Tablet.dr, 40 MG PO DAILY, (Reported) Risperidone 2 Mg Tablet, 2 MG PO BID, (Reported) Simvastatin 10 Mg Tablet, 10 MG PO HS, (Reported) Ticagrelor 90 Mg Tablet, 90 MG PO DAILY, (Reported) Trazodone HCl 150 Mg Tablet, 150 MG PO HS, (Reported) Trospium Chloride 20 Mg Tablet, 20 MG PO BID, (Reported) Constitutional: see HPI Genitourinary: see HPI, burning, dysuria, frequency, hematuria, urgency All Other Systemes Reviewed Negative Unless Noted: Yes (Negative excepted noted.) Past Timkrej-Dopqiz-Hustct Hx Patient Social History Type Used: Cigarettes Recent Hopitalizations: Yes (Cardiac stent 2 weeks ago.) Immunizations Up To Date Date of Pneumonia Vaccine: Mar 07, 2010 Date of Influenza Vaccine: Mar 07, 2017 Seasonal Allergies Seasonal Allergies: No Surgeries HX Surgeries: Yes (CATARACT SURGERY) Surgeries: Coronary Stent, Eye Surgery, Gallbladder Respiratory Hx Respiratory Disorders: Yes (HX OF SEPSIS) Respiratory Disorders: Pneumonia, Chronic Bronchitis, Sleep Apnea, COPD Cardiovascular Hx Cardiac Disorders: Yes (STENT) Cardiac Disorders: Chronic Edema/Swelling, Hypertension Neurological Hx Neurological Disorders: Yes Neurological Disorders: Dementia, Neuropathy Reproductive System Hx Reproductive Disorders: No Sexually Transmitted Disease: No HIV/AIDS: No Genitourinary Hx Genitourinary Disorders: Yes (HX OF SEPSIS) Genitourinary Disorders: UTI-Chronic Gastrointestinal Hx Gastrointestinal Disorders: Yes Gastrointestinal Disorders: Gastroesophageal Reflux, Chronic Constipation Musculoskeletal Hx Musculoskeletal Disorders: Yes Musculoskeletal Disorders: Arthritis Endocrine Hx Endocrine Disorders: Yes Endocrine Disorders: Diabetes, Insulin dep HEENT HX ENT Disorders: Yes (ANGIOEDEMA OF TONGUE) HEENT Disorders: Cataract Hearing Impairment: Hard of Hearing Cancer Hx Cancer: No Psychosocial Hx Psychiatric Problems: Yes Behavioral Health Disorders: Depression Integumentary HX Skin/Integumentary Disorder: No Blood Transfusions Hx Blood Disorders: No Adverse Reaction to a Blood Tr: No Family Medical History Significant Family History: No Pertinent Family Hx Family Medial History: Family history: Hypertension 03 FATHER Stroke 03 MOTHER Physical Exam Vital Signs Vital Sign - Last 12Hours 08/25/16 18:51 Temp 97.1 Pulse 72 Resp 16 B/P (MAP) 127/70 Pulse Ox 97 O2 Delivery Room Air Capillary Refill : General Appearance: WD/WN, no apparent distress, obese Cardiovascular: regular rate, rhythm Respiratory: no respiratory distress Gastrointestinal: soft, No tenderness Rectal: deferred Neurologic/Psychiatric: no motor/sensory deficits, alert, normal mood/affect Skin: warm/dry Progress/Results/Core Measures Results/Orders Lab Results Laboratory Tests Test 08/25/16 19:52 Range/Units Urine Color RED H Urine Clarity BLOODY H Urine pH 6 5-9 Urine Specific [place] 1.015 L 1.016-1.022 Urine Protein 4+ NEGATIVE Urine Glucose (UA) NEGATIVE NEGATIVE Urine Ketones NEGATIVE NEGATIVE Urine Nitrite POSITIVE H NEGATIVE Urine Bilirubin NEGATIVE NEGATIVE Urine Urobilinogen 1 NORMAL MG/DL Urine Leukocyte Esterase 3+ H NEGATIVE Urine RBC (Auto) 5+ H NEGATIVE Urine RBC TNTC H /HPF Urine WBC TNTC H /HPF Urine Crystals NONE /LPF Urine Bacteria MODERATE H /HPF Urine Casts NONE /LPF Urine Mucus NEGATIVE /LPF Urine Culture Indicated YES My Orders Orders - TREVOR MCCABE DO Ua Culture If Indicated (08/25/16 18:35) Urine Culture (08/25/16 19:52) Levofloxacin Tablet (Levaquin Tablet) (08/25/16 20:30) Medications Given in ED Current Medications Medications Dose Ordered Sig/Areli Route Start Time Stop Time Status Last Admin Dose Admin Levofloxacin 500 mg ONCE ONCE PO 08/25/16 20:30 08/25/16 20:31 DC 08/25/16 20:28 500 MG Vital Signs/I&O Vital Sign - Last 12Hours 08/25/16 18:51 Temp 97.1 Pulse 72 Resp 16 B/P (MAP) 127/70 Pulse Ox 97 O2 Delivery Room Air Departure Impression Impression: Primary Impression: UTI (urinary tract infection) Disposition: 01 HOME, SELF-CARE Condition: Stable Departure-Patient Inst. Decision time for Depature: 20:18 Referrals: VERENA LANCE MD (PCP/Family) Primary Care Physician Patient Instructions: Urinary Tract Infection, Adult (DC) Scripts Levofloxacin (Levaquin) 500 Mg Tablet 500 MG PO DAILY for UTI, #10 TAB 0 Refills Prov: TREVOR MCCABE DO 08/25/16 TREVOR MCCABE DO Aug 25, 2016 18:35
[2016-08-25 20:03] LABS: BILIRUBIN,URINE NEGATIVE (NEGATIVE); KETONES,URINE NEGATIVE (NEGATIVE); LEUKOCYTE ESTERASE ,URINE 3+ (NEGATIVE); NITRITE,URINE POSITIVE (NEGATIVE); PH,URINE 6 (5-9); PROTEIN,URINE 4+ (NEGATIVE); UROBILINOGEN,URINE 1 MG/DL (NORMAL)
[2016-08-25 20:10] LABS: WBC,URINE TNTC /HPF
[2016-08-25] MEDS ORDERED: LEVO500T2 PO (20:19)
[2016-08-25] MEDS ORDERED: LEVOFLOXACIN 500 MG TAB (LEVAQUIN) PO ONE (20:30)
[2016-08-25 20:36] VITALS: BP 126/77
== END 2016-08-25 20:42 | disposition home or self-care (01) ==
LOC: EDUNIT# 18:29 → ER 18:30
DX: N30.91 Cystitis, unspecified with hematuria (principal); J44.9 Chronic obstructive pulmonary disease, unspecified; I10 Essential (primary) hypertension; E11.9 Type 2 diabetes mellitus without complications; Z79.82 Long term (current) use of aspirin; Z79.4 Long term (current) use of insulin; Z79.899 Other long term (current) drug therapy; Z95.5 Presence of coronary angioplasty implant and graft
CPT/HCPCS: 81000; 87088; 99285

== ENCOUNTER → 2016-09-28 | Outpatient (CLI) | payer MEDICARE ==
[~2016-09-28] MED LIST changes: +LEVO500T2 PO
--- NOTE | 2016-09-28 14:38 | Diagnostic Imaging Report ---
PROCEDURE: CT abdomen and pelvis without contrast. TECHNIQUE: Multiple contiguous axial images were obtained through the abdomen and pelvis without the use of intravenous contrast. INDICATION: Hematuria. FINDINGS: The lung bases demonstrate no significant abnormality. There are prominent coronary artery atherosclerotic calcifications. The liver, the spleen, the pancreas and the adrenal glands appear unremarkable. There is bilateral moderate hydroureteronephrosis. The urinary bladder is moderately dilated. There is no obstructive stone. There is bladder wall thickening and mild stranding seen around it. This is likely secondary to cystitis. The prostate is not significantly enlarged. The colon demonstrates moderate amount of fecal material. No bowel obstruction. No free fluid or fluid collection in the abdomen or pelvis. The abdominal aorta is normal in caliber. No para-aortic significantly enlarged lymph node is seen. Fusion of the SI joints is noted bilaterally. Advanced degenerative changes in the lumbar spine seen. IMPRESSION: 1. There is marked dilatation of the urinary bladder with bladder wall thickening concerning for cystitis. 2. Bilateral moderate hydroureteronephrosis is probably secondary to urinary retention with no obstructive stones. The findings were called to Dr. Vanessa at time of dictation. Dictated by: Dictated on workstation # [id number]
== END ==
LOC: RAD 12:55
PROVIDERS: ATTEND Urology
DX: R31.9 Hematuria, unspecified (principal); N13.30 Unspecified hydronephrosis
CPT/HCPCS: 74176

== ENCOUNTER 2016-10-24 14:21 | Outpatient (CLI) | payer MEDICARE, MEDICAID ==
[~2016-10-24] VITALS: Ht 172.7 cm; Wt 106.8 kg
[2016-10-24 14:38] VITALS: BP 116/72
[2016-10-24 15:11] LABS: BASOPHILS % (AUTO) 0 % (0-10); EOSINOPHILS # (AUTO) 0.2 10^3/uL (0.0-0.3); EOSINOPHILS % (AUTO) 1 % (0-10); LYMPHOCYTES # (AUTO) 3.2 X 10^3 (1.0-4.0); LYMPHOCYTES % (AUTO) 21 % (12-44); MEAN CORPUSCULAR HEMOGLOBIN 29 PG (25-34); MEAN CORPUSCULAR HGB CONC 33 G/DL (32-36); MEAN CORPUSCULAR VOLUME 88 FL (80-99); MEAN PLATELET VOLUME 10.1 FL (7.4-10.4); MONOCYTES # (AUTO) 0.9 X 10^3 (0.0-1.0); MONOCYTES % (AUTO) 6 % (0-12); NEUTROPHILS # (AUTO) 11.1 X 10^3 (1.8-7.8); NEUTROPHILS % (AUTO) 72 % (42-75); PLATELET COUNT 239 10^3/uL (130-400); RED BLOOD COUNT 3.99 10^6/uL (4.35-5.85); RED CELL DISTRIBUTION WIDTH 13.5 % (10.0-14.5); WHITE BLOOD COUNT 15.5 10^3/uL (4.3-11.0)
[2016-10-24] MEDS ORDERED: FURO-124 PO (15:17)
[2016-10-24] MEDS ORDERED: TAMS0.4C98 PO (15:17)
[2016-10-24] MEDS ORDERED: BUPR300T43 PO (15:17)
[2016-10-24] MEDS ORDERED: SIMV10TA PO (15:17)
[2016-10-24 15:27] LABS: CALCIUM 9.5 MG/DL (8.5-10.1); CREATININE SERUM 1.62 MG/DL (0.60-1.30); ICTERUS 0.5 (-100-1.9); POTASSIUM 4.2 MMOL/L (3.6-5.0)
[2016-10-24 15:36] LABS: BAND NEUTROPHILS 0 %; BASOPHILS % (MANUAL) 1 %; EOSINOPHILS % (MANUAL) 1 %; LYMPHOCYTES % (MANUAL) 22 %; NEUTROPHILS % (MANUAL) 75 %
--- NOTE | 2016-10-24 17:42 | Diagnostic Imaging Report ---
EXAMINATION: PA and lateral views of the chest. INDICATION: Preoperative evaluation. FINDINGS: The lungs are hyperinflated with no focal airspace opacity. Chronic appearing mild interstitial thickening is seen. No effusion or pneumothorax. The heart size is normal. The mediastinum and manju appear unremarkable. IMPRESSION: COPD. Dictated by: Dictated on workstation # [id number]
== END 2016-10-24 16:00 ==
LOC: PREOP 14:21
PROVIDERS: ATTEND Urology
DX: Z01.818 Encounter for other preprocedural examination (principal); Z01.812 Encounter for preprocedural laboratory examination; Z11.2 Encounter for screening for other bacterial diseases; N40.1 Benign prostatic hyperplasia with lower urinary tract symptoms; R33.9 Retention of urine, unspecified; N31.9 Neuromuscular dysfunction of bladder, unspecified; Z79.82 Long term (current) use of aspirin
CPT/HCPCS: 36415; 71020; 80048; 85002; 85007; 85027; 86850; 86900; 86901; 87081; 93005

== ENCOUNTER 2016-10-31 06:14 | Day surgery (SDC) | payer MEDICARE, MEDICAID ==
[~2016-10-31] VITALS: Ht 172.7 cm; Wt 106.8 kg
[~2016-10-31 06:14] MED LIST changes: +FURO-124 PO; +SIMV10TA PO; +TAMS0.4C98 PO
[2016-10-31] MEDS ORDERED: NS (IVPB) 50 ML ONE (06:29)
[2016-10-31] MEDS ORDERED: cefTRIAXone 1 GM (ROCEPHIN) VIAL ONE (06:29)
[2016-10-31] MEDS ORDERED: LACTATED RINGERS 1,000 ML IV PRN (06:51)
[2016-10-31] MEDS ORDERED: ONDANSETRON 4 MG/2 ML (SDV) Z0FRAN ONE (06:58)
[2016-10-31] MEDS ORDERED: PROPOFOL INJECTION 50 ML IV ONE (06:58)
[2016-10-31] MEDS ORDERED: MIDAZOLAM 2 MG/2 ML (VERSED) VIAL ONE (06:58)
--- NOTE | 2016-10-31 07:06 | Progress Note-Pre Operative ---
Pre-Operative Progress Note H&P Reviewed The H&P was reviewed, patient examined and no changes noted. Date Seen by Provider: Oct 31, 2016 Time Seen by Provider: 07:06 Date H&P Reviewed: Oct 31, 2016 Time H&P Reviewed: 07:06 Pre-Operative Diagnosis: BPH WITH URINE RETENTION JOHAN LAROSE MD Oct 31, 2016 7:06 am
[2016-10-31 07:15] VITALS: BP 134/80
[2016-10-31] MEDS ORDERED: LACTATED RINGERS 1,000 ML IV ONE ×2 (08:08→08:51)
[2016-10-31] MEDS ORDERED: SEVOFLURANE (ULTANE) 15 ML INHAL SOLN ONE ×2 (08:25→08:51)
[2016-10-31] MEDS ORDERED: LACTATED RINGERS 1,000 ML IV SCH (08:54)
--- NOTE | 2016-10-31 08:54 | Progress Note-Post Operative ---
Post-Operative Progess Note Surgeon (s)/Log Buncher (s) Surgeon JOHAN LAROSE MD Log Buncher: N/A Pre-Operative Diagnosis BPH WITH URINE RETENTION Post-Operative Diagnosis SAME Procedure & Operative Findings Date of Procedure 10/31/16 Procedure Performed/Findings TURP FOR BPH AND NEUROGENIC BLADDER Anesthesia Type SPINAL AND GENERAL Estimated Blood Loss Estimated blood loss (mL): 100CC Specimens/Packing Specimens Removed PROSTATE CHIPS JOHAN LAROSE MD Oct 31, 2016 8:54 am
[2016-10-31] MEDS ORDERED: HYDROcodone/APAP 10 MG/325 MG (LORTAB) TAB PO PRN (09:00)
[2016-10-31] MEDS ORDERED: MILK OF MAGNESIA 400 MG/5 ML 30 ML UDC PO PRN (09:00)
[2016-10-31] MEDS ORDERED: BELLADONNA ALK/OPIUM (B & O) 30 MG SUPP PR PRN (09:00)
[2016-10-31] MEDS ORDERED: RT-ALBUTEROL HFA (VENTOLIN) PER PUFF IH PRN (09:15)
[2016-10-31] MEDS ORDERED: ONDANSETRON 4 MG/2 ML (SDV) Z0FRAN IVP PRN (09:15)
[2016-10-31] MEDS ORDERED: morphine INJ 10 MG/ML 1ML (SYR OR VIAL) IVP PRN (09:15)
[2016-10-31] MEDS ORDERED: ACETAMINOPHEN 325 MG TABLET/CAPLET (TYLENOL) PO PRN (09:15)
--- OUTSIDE RECORDS SUMMARY | 2016-10-31 10:01 | XMS REPORT | Continuity of Care Document ---
Author Author [facility] Organization [facility] Address Unknown Phone Unavailable Care Team Providers Care Compressor Assembler Name Role Phone Bhaskar Alcantara PCP [phone] Source Comments Some departments are not documenting in the electronic medical record. If you do not see the information that you expected, contact Release of Information in the Health Information Management department at [phone] for further assistance in locating additional records.[facility] Active Allergies and Adverse Reactions Allergen [...] CPAP again. - Return to clinic PRN. Social History Tobacco Use Types Packs/Day Years Used Date Never Smoker Smokeless Tobacco: Never Used Alcohol Use Drinks/Week oz/Week Comments No Last Filed Vital Signs Vital Sign Reading Time Taken Blood Pressure 147/94 04/24/2016 4:02 PM [employer] Pulse 88 04/24/2016 4:02 PM [employer] Temperature - - Respiratory Rate 16 11/22/2015 2:32 PM CDT Height 1.753 m (5' 9") 04/24/2016 4:02 PM [employer] Weight 108.863 kg (240 lb) 04/24/2016 4:02 PM [employer] Body Mass Index 35.43 04/24/2016 4:02 PM [employer] Oxygen Saturation - - Plan of Care [...]
[2016-10-31 10:20] VITALS: BP 143/64
[2016-10-31] MEDS: LACTATED RINGERS 1,000 ML IV SCH (11:05)
[2016-10-31] MEDS: DOCUSATE SODIUM 100 MG (COLACE) CAP PO SCH ×2 (11:15→20:24)
[2016-10-31] MEDS ORDERED: RT-ALBUTEROL SULF 2.5 MG/3 ML PRE-MIX VIAL IH PRN (11:15)
[2016-10-31] MEDS: BETHANECHOL 10 MG (URECHOLINE) TAB PO SCH ×3 (11:16→20:23)
[2016-10-31] MEDS: PANTOPRAZOLE 40 MG (PROTONIX) TAB PO SCH (11:17)
[2016-10-31] MEDS: BETAMETHASONE/CLOTRIM CREAM (LOTRISONE) 45 GM TP SCH ×2 (11:41→20:24)
[2016-10-31 12:00] VITALS: BP 138/62
[2016-10-31 16:15] VITALS: BP 152/75
[2016-10-31] MEDS: ALFUZOSIN HCL 10 MG TAB (UROXATRAL) PO SCH (17:48)
[2016-10-31 19:05] VITALS: BP 154/94
[2016-10-31] MEDS: risperiDONE 2 MG (RisperDAL) TAB PO SCH (20:23)
[2016-10-31] MEDS: OMEGA 3 (FISH OIL) 1000 MG CAP PO SCH (20:23)
[2016-10-31] MEDS: meTOproloL SUCCINATE 50 MG (TOPROL XL) TAB PO SCH (20:24)
[2016-10-31] MEDS: inSUlin DETERMIR 1 UNIT/0.01 ML (LEVEMIR) CHARGE PER UNIT SQ SCH (20:24)
[2016-10-31] MEDS: traZODone 150 MG (DESYREL) TABLET PO SCH (20:24)
[2016-10-31] MEDS: SIMvastatin 10 MG (ZOCOR) TAB PO SCH (20:24)
[2016-10-31] MEDS ORDERED: DOCUSATE SODIUM 100 MG (COLACE) CAP PO SCH (21:00)
[2016-10-31] MEDS ORDERED: NON-FORMULARY MEDICATION 1 EA EA (Tamsulosin HCl (Flomax) 0.4 MG) PO SCH (21:00)
[2016-10-31] MEDS ORDERED: INSULIN GLARGINE HUM REC ANLOG 25 UNIT SQ SCH (21:00)
[2016-10-31] MEDS ORDERED: [UNRECOGNIZED DRUG - OTHER] SQ SCH (21:00)
[2016-11-01] VITALS: BP 118/71
[2016-11-01 04:00] VITALS: BP 127/79
[2016-11-01] MEDS: BETHANECHOL 10 MG (URECHOLINE) TAB PO SCH ×2 (06:03→11:11)
[2016-11-01] MEDS: buPROPion SR 150 MG (WELLBUTRIN SR) TAB PO SCH ×2 (06:03→17:37)
[2016-11-01] MEDS: PANTOPRAZOLE 40 MG (PROTONIX) TAB PO SCH (06:03)
--- NOTE | 2016-11-01 06:42 | Progress Note-Urology ---
Progress Note-Urology Progress Notes/Assess & Plan Progress/Assessment & Plan DOING WELL. NO COMPLANITS. URINE CLEAR AND GEOVANNY. PLAN PER ORDERS Final Diagnosis BPH WITH RETENTION JOHAN LAROSE MD Nov 01, 2016 6:42 am
[2016-11-01 07:23] VITALS: BP 122/76
[2016-11-01] MEDS: BETAMETHASONE/CLOTRIM CREAM (LOTRISONE) 45 GM TP SCH ×2 (08:06→20:45)
[2016-11-01] MEDS: amLODIPine 10 MG (NORVASC) TAB PO SCH (08:06)
[2016-11-01] MEDS: meTOproloL SUCCINATE 50 MG (TOPROL XL) TAB PO SCH ×2 (08:06→20:45)
[2016-11-01] MEDS: risperiDONE 2 MG (RisperDAL) TAB PO SCH ×2 (08:06→20:45)
[2016-11-01] MEDS: DOCUSATE SODIUM 100 MG (COLACE) CAP PO SCH ×2 (08:06→20:44)
[2016-11-01] MEDS: OMEGA 3 (FISH OIL) 1000 MG CAP PO SCH ×2 (08:06→20:45)
[2016-11-01] MEDS: LOSARTAN 50 MG (COZAAR) TAB PO SCH (08:06)
[2016-11-01] MEDS: FUROSEMIDE 40 MG (LASIX) TAB PO SCH (08:06)
[2016-11-01] MEDS ORDERED: LEVOFLOXACIN 500 MG/100 ML IV 100 ML IV NR (09:00)
[2016-11-01] MEDS ORDERED: NON-FORMULARY MEDICATION 1 EA EA (Bupropion HCl (Wellbutrin Xl) 300 MG) PO SCH (09:00)
[2016-11-01] MEDS ORDERED: NON-FORMULARY MEDICATION 1 EA EA (Losartan Potassium 100 MG) PO SCH (09:00)
--- NOTE | 2016-11-01 10:45 | Anesthesia-Regional Post-Op ---
Regional Patient Condition Mental Status: Alert, Oriented x3 Circulation: Same as Pre-Op Headache: Absent Sensation: Full Recovery Motor Block: Absent Post Op Complications Complications None Follow Up Care/Instructions Patient Instructions None needed. Anesthesia/Patient Condition Patient is doing well, no complaints, stable vital signs, no apparent adverse anesthesia problems. No complications reported per nursing. Converted to GETA per surgeon request intraoperatively. No complications. NATASHA BUTLER GLASS BENDER Nov 01, 2016 10:45
[2016-11-01 12:00] VITALS: BP 125/69
[2016-11-01 15:25] VITALS: BP 167/83
[2016-11-01] MEDS: BETHANECHOL 25 MG (URECHOLINE) TAB PO SCH ×2 (15:45→20:45)
[2016-11-01] MEDS: ALFUZOSIN HCL 10 MG TAB (UROXATRAL) PO SCH (17:37)
[2016-11-01] MEDS: LACTATED RINGERS 1,000 ML IV SCH (17:38)
[2016-11-01] MEDS: traZODone 150 MG (DESYREL) TABLET PO SCH (20:45)
[2016-11-01] MEDS: inSUlin DETERMIR 1 UNIT/0.01 ML (LEVEMIR) CHARGE PER UNIT SQ SCH (20:45)
[2016-11-01] MEDS: SIMvastatin 10 MG (ZOCOR) TAB PO SCH (20:45)
[2016-11-02 00:45] VITALS: BP 122/85
[2016-11-02] MEDS: PANTOPRAZOLE 40 MG (PROTONIX) TAB PO SCH (06:17)
[2016-11-02] MEDS: buPROPion SR 150 MG (WELLBUTRIN SR) TAB PO SCH (06:17)
[2016-11-02] MEDS: BETHANECHOL 25 MG (URECHOLINE) TAB PO SCH ×2 (06:17→10:59)
[2016-11-02 08:30] VITALS: BP 130/82
[2016-11-02] MEDS: LACTATED RINGERS 1,000 ML IV SCH (08:56)
[2016-11-02] MEDS: LOSARTAN 50 MG (COZAAR) TAB PO SCH (08:57)
[2016-11-02] MEDS: OMEGA 3 (FISH OIL) 1000 MG CAP PO SCH (08:57)
[2016-11-02] MEDS: meTOproloL SUCCINATE 50 MG (TOPROL XL) TAB PO SCH (08:57)
[2016-11-02] MEDS: FUROSEMIDE 40 MG (LASIX) TAB PO SCH (08:57)
[2016-11-02] MEDS: risperiDONE 2 MG (RisperDAL) TAB PO SCH (08:57)
[2016-11-02] MEDS: amLODIPine 10 MG (NORVASC) TAB PO SCH (08:57)
[2016-11-02] MEDS: DOCUSATE SODIUM 100 MG (COLACE) CAP PO SCH (08:57)
[2016-11-02] MEDS: BETAMETHASONE/CLOTRIM CREAM (LOTRISONE) 45 GM TP SCH (08:57)
--- NOTE | 2016-11-02 10:35 | Progress Note-Urology ---
Progress Note-Urology Progress Notes/Assess & Plan Progress/Assessment & Plan UNABLE TO VOID. TOLERATES URECHOLINE WELL. DISCHARGE WITH ESCALANTE Final Diagnosis BPH WITH URINE RETENTION JOHAN LAROSE MD Nov 02, 2016 10:35 am
--- NOTE | 2016-11-02 10:41 | Discharge Inst-Urology ---
Discharge Inst-Urology Discharge Medications New, Converted, or Re-newed RX: RX on Chart Patient Instructions/Follow Up Plan Discharge with brady and leg bag day time and large bag night time with instructions Keep bowels soft and moving No straining or heavy lifting Stay off ASA and Brilinta Office Sunday 10 am Increase oral fluids for 48 hours and then as needed. Diet and Activity as tolerated. If questions or concerns contact your physician Or seek help at emergency department. JOHAN LAROSE MD Nov 02, 2016 10:41 am
[2016-11-02] MEDS ORDERED: CIPR-225 PO (11:12)
[2016-11-02] MEDS ORDERED: BETH25TA11 PO (11:12)
--- NOTE | 2016-11-03 15:05 | OPERATIVE REPORT ---
PROCEDURE PHYSICIAN: JOHAN LAROSE DATE OF PROCEDURE: 10/31/2016 PREOPERATIVE DIAGNOSIS: BPH with prostatism and retention. POSTOPERATIVE DIAGNOSIS: BPH with prostatism and retention. OPERATION: Transurethral resection of the prostate. SURGEON: Dr. Larose. ANESTHESIA: Spinal. COMPLICATIONS: None. PROCEDURE: Under satisfactory spinal anesthesia, the patient in lithotomy position, the genitalia were prepped and draped in usual sterile fashion. The urethra was dilated with Will sound to accommodate a 27-[employer] resectoscope. Starting dissecting at the roof from 1 to 11 o'clock. The patient was pushing against me and breathing kind of abdominally so we went ahead and put him to sleep to complete performance of the surgery. The lateral lobes were resected, the floor the apical tissue as well. There was wide opening of the channel. Bleeders were cauterized as the resection was proceeding and hemostasis was satisfactory. The prostatic chips were then evacuated and cystoscopy confirmed intact ureteric orifices, VERU, and sphincter with good efflux. A 22 three-way 30 mL balloon catheter was inserted in the bladder. The balloon inflated to 30 mL, and connected to continuous bladder irrigation, the return of which was pretty clear. The catheter was put on light traction, Estimated blood loss 100 mL, none of which was replaced. The patient tolerated the procedure and anesthesia well and was sent to recovery room in stable condition. Job ID: [id number] Dictated Date: 11/03/2016 11:07:23 Print Shop Manager Date: 11/03/2016 15:01:27 / tabatha
== END 2016-11-02 13:20 | disposition home or self-care (01) ==
LOC: SDC 06:14 → 4TH 10:17 → SDC 11-02 13:20
PROVIDERS: ATTEND Urology
DX: N40.1 Benign prostatic hyperplasia with lower urinary tract symptoms (principal); R33.8 Other retention of urine; N31.9 Neuromuscular dysfunction of bladder, unspecified; E11.9 Type 2 diabetes mellitus without complications; I10 Essential (primary) hypertension; J44.9 Chronic obstructive pulmonary disease, unspecified; I25.10 Atherosclerotic heart disease of native coronary artery without angina pectoris; E78.5 Hyperlipidemia, unspecified; Z95.5 Presence of coronary angioplasty implant and graft; G47.33 Obstructive sleep apnea (adult) (pediatric); F32.9 Major depressive disorder, single episode, unspecified; K21.9 Gastro-esophageal reflux disease without esophagitis; Z79.4 Long term (current) use of insulin; Z79.899 Other long term (current) drug therapy
CPT/HCPCS: 82962; 85002; 94664; 94760

== ENCOUNTER 2016-11-05 19:15 | Emergency (ER) | payer MEDICARE, MEDICAID ==
[~2016-11-05] VITALS: Ht 175.3 cm; Wt 95.3 kg
[~2016-11-05 19:15] MED LIST changes: +BETH25TA11 PO; +CIPR-225 PO
--- NOTE | 2016-11-05 19:32 | ED GU-Male ---
General Stated Complaint: CATHETER ISSUES Source: EMS Exam Limitations: other (PT IS LIMITED HISTORIAN--HAS DEMENTIA) History of Present Illness Time seen by provider: 19:07 Initial Comments PT ARRIVES VIA EMS FROM [facility] PT REPORTEDLY HAS HAD INDWELLING ESCALANTE CATHETER X 4 MONTHS RECENTLY HAD TURP 10/31/[address] LAROSE AND HAS HAD INTERMITTENT BLOOD CLOTS IN URINE REPORTEDLY THIS CATHETER WAS CHANGED 4 DAYS AGO FOR CATHETER NOT DRAINING CATHETER IS NOT DRAINING AGAIN TODAY, AND PT C/O MUCH LOWER ABDOMINAL PAIN/ PRESSURE. IS UNKNOWN WHAT/IF ANYTHING WAS DONE TO TRY TO RESOLVE THIS PROBLEM AT [facility]. NO KNOWN FEVER NO NAUSEA/VOMITING Allergies and Home Medications Allergies Coded Allergies: Penicillins (Unverified Allergy, Mild, HIVES, 09/19/08) duloxetine HCl (Verified Allergy, Mild, 08/20/11) Home Medications Acetaminophen 325 Mg Tablet, 650 MG PO Q4H PRN for PAIN/TEMP, (Reported) Albuterol Sulfate 1 Puff Puff, 2 PUFF IH Q4H PRN for SHORTNESS OF BREATH, ( Reported) 1 PUFF = 90 MCG Amlodipine Besylate 10 Mg Tablet, 10 MG PO DAILY, (Reported) Ascorbic Acid 1,000 Mg Tablet, 1,500 MG PO DAILY, (Reported) TAKES 1 & 1/2 (1000MG) TABLET Bethanechol Chloride 25 Mg Tablet, 25 MG PO ACHS, #120 Ref PRN Prescribed by: CAMPOS WHITT on 11/02/16 1112 Bupropion HCl 300 Mg Tab.er.24h, 300 MG PO DAILY, (Reported) Ciprofloxacin HCl 500 Mg Tablet, 500 MG PO BID, #14 Prescribed by: CAMPOS WHITT on 11/02/16 1112 Citalopram Hydrobromide 20 Mg Tablet, 20 MG PO DAILY, (Reported) Docusate Sodium 100 Mg Capsule, 100 MG PO BID, (Reported) Furosemide 40 Mg Tablet, 40 MG PO DAILY, (Reported) Insulin Glargine,Hum.rec.anlog 100 Unit/1 Ml Insuln.pen, 25 UNITS SQ HS, ( Reported) Losartan Potassium 100 Mg Tablet, 100 MG PO DAILY, (Reported) Metoprolol Succinate 50 Mg Tab.er.24h, 50 MG PO BID, (Reported) Nitrofurantoin Monohyd/M-Cryst 100 Mg Capsule, 100 MG PO BID, #20 Prescribed by: AMANDA WOODSON on 11/05/161958 [place] 3 Polyunsat Fatty Acids 1,000 Mg Cap, 1,000 MG PO BID, (Reported) Pantoprazole Sodium 40 Mg Tablet.dr, 40 MG PO DAILY, (Reported) Risperidone 2 Mg Tablet, 2 MG PO BID, (Reported) Simvastatin 10 Mg Tablet, 10 MG PO HS, (Reported) Trazodone HCl 150 Mg Tablet, 150 MG PO HS, (Reported) Constitutional: no symptoms reported Gastrointestinal: see HPI Genitourinary: see HPI Skin: other (SKING BREAKDOWN ON BUTTOCKS) Past Bgzdvrp-Fsgxlf-Ycrfsh Hx Patient Social History Type Used: Cigarettes 2nd Hand Smoke Exposure: No Recent Hopitalizations: No Immunizations Up To Date Date of Pneumonia Vaccine: Mar 07, 2010 Date of Influenza Vaccine: Mar 07, 2017 Seasonal Allergies Seasonal Allergies: No Surgeries HX Surgeries: Yes (CATARACT SURGERY; TURP 10/31/[address] LAROSE; CARDIAC CATH-- STENT) Surgeries: Coronary Stent, Eye Surgery, Gallbladder, Transurethral Resection Respiratory Hx Respiratory Disorders: Yes (HX OF SEPSIS, O2 AT NIGHT) Respiratory Disorders: Pneumonia, Chronic Bronchitis, Sleep Apnea, COPD Cardiovascular Hx Cardiac Disorders: Yes (STENT) Cardiac Disorders: Chronic Edema/Swelling, Coronary Artery Disease, Hypertension Neurological Hx Neurological Disorders: Yes Neurological Disorders: Dementia, Neuropathy Reproductive System Hx Reproductive Disorders: No Sexually Transmitted Disease: No HIV/AIDS: No Genitourinary Hx Genitourinary Disorders: Yes (HX OF SEPSIS; CHRONIC URINARY RETENTION; INDWELLING ESCALANTE ) Genitourinary Disorders: Benign Prostatic Hyperpl, Prostate Problems, Neurogenic Bladder, UTI-Chronic Gastrointestinal Hx Gastrointestinal Disorders: Yes Gastrointestinal Disorders: Gastroesophageal Reflux, Chronic Constipation Musculoskeletal Hx Musculoskeletal Disorders: Yes Musculoskeletal Disorders: Arthritis Endocrine Hx Endocrine Disorders: Yes Endocrine Disorders: Diabetes, Insulin dep HEENT HX ENT Disorders: Yes (ANGIOEDEMA OF TONGUE) HEENT Disorders: Cataract Hearing Impairment: Hard of Hearing Cancer Hx Cancer: No Psychosocial Hx Psychiatric Problems: Yes Behavioral Health Disorders: Depression Integumentary HX Skin/Integumentary Disorder: No Blood Transfusions Hx Blood Disorders: No Adverse Reaction to a Blood Tr: No Family Medical History Significant Family History: No Pertinent Family Hx Family Medial History: Family history: Hypertension 03 FATHER Stroke 03 MOTHER Physical Exam Vital Signs Vital Sign - Last 12Hours 11/05/16 19:33 Pulse 81 Resp 16 B/P (MAP) 136/77 Pulse Ox 97 O2 Delivery Room Air Capillary Refill : General Appearance: no apparent distress, obese Respiratory: normal breath sounds, no respiratory distress Gastrointestinal: tenderness (SUPRAPUBIC), other (UNABLE TO DETERMINE IF BLADDER IS DISTENDED, DUE TO BODY HABITUS) Genital/Rectal: other (STAGE 1, WITH SMALL AREA OF EARLY STAGE 2 DECUBITUS ULCERS TO BUTTOCKS. NO SIGNS OF SECONDARY INFECTION) Extremities: pedal edema (1+ ) Neurologic/Psychiatric: no motor/sensory deficits (GROSSLY INTACT), alert, normal mood/affect, other (SOMEWHAT CONFUSED, KNOWS SELF, KNOWS HE IS IN HOSPITAL AND WHY. SPEECH WITH MILD EXPRESSIVE APHASIA??) Skin: normal color, warm/dry, other (SKIN BREAKDOWN ON BUTTOCKS ABOVE) Progress/Results/Core Measures Results/Orders Lab Results Laboratory Tests Test 11/05/16 19:14 Range/Units Urine Color YELLOW Urine Clarity CLEAR Urine pH 7 5-9 Urine Specific [place] 1.010 L 1.016-1.022 Urine Protein 3+ H NEGATIVE Urine Glucose (UA) NEGATIVE NEGATIVE Urine Ketones NEGATIVE NEGATIVE Urine Nitrite NEGATIVE NEGATIVE Urine Bilirubin NEGATIVE NEGATIVE Urine Urobilinogen NORMAL NORMAL MG/DL Urine Leukocyte Esterase 3+ H NEGATIVE Urine RBC (Auto) 5+ H NEGATIVE Urine RBC >100 H /HPF Urine WBC 5-10 H /HPF Urine Squamous Epithelial Cells 2-5 /HPF Urine Crystals NONE /LPF Urine Bacteria TRACE /HPF Urine Casts NONE /LPF Urine Mucus NEGATIVE /LPF Urine Culture Indicated YES My Orders Orders - AMANDA WOODSON DO Catheter(Urinary) Insert & Ass 03,15 (11/05/16 19:25) Ua Culture If Indicated (11/05/16 19:25) Urine Culture (11/05/16 19:14) Rx-Nitrofurantoin [place] (Rx-Macrobid) (11/05/16 19:58) Vital Signs/I&O Vital Sign - Last 12Hours 11/05/16 19:33 Pulse 81 Resp 16 B/P (MAP) 136/77 Pulse Ox 97 O2 Delivery Room Air Progress Note : Progress Note RN DEFLATED BALLOON OF CATHETER WITH IMMEDIATE COPIOUS AMOUNTS OF URINE LEAKING AROUND CATHETER. CATHETER REMOVED WITH CONTINUED URINE DRAINING CATHETER REPLACED WITH IMMEDIATE RETURN OF LARGE AMOUNT OF BLOODY RINE, WITH A FEW CLOTS, WITH MUCH IMPROVEMENT IN PT'S DISCOMFORT. PT STATES HE HAS AN APPOINTMENT WITH DR. LAROSE TOMORROW Departure Impression Impression: Primary Impression: Escalante catheter problem Additional Impressions: Urinary tract infection Decubitus skin ulcer Disposition: 03 XFER SNF Condition: Improved Departure-Patient Inst. Referrals: JOHAN LAROSE MD, JOHN D MD (PCP/Family) Primary Care Physician Patient Instructions: Escalante Catheter, Male, How to Care for Your Escalante Catheter , Male, How to Prevent Catheter Associated Urinary Tract Infections, How to Prevent Pressure Ulcers, Urinary Tract Infection, Adult (DC) Add. Discharge Instructions: CONTINUE ALL PREVIOUS ORDERS FOLLOW UP WITH DR. LANCE AND DR. LAROSE FOR FURTHER CARE Scripts Nitrofurantoin Monohyd/M-Cryst (Macrobid 100 mg Capsule) 100 Mg Capsule 100 MG PO BID, #20 CAP Prov: AMANDA WOODSON DO 11/05/16 AMANDA WOODSON DO Nov 05, 2016 19:32
[2016-11-05 19:33] LABS: BILIRUBIN,URINE NEGATIVE (NEGATIVE); KETONES,URINE NEGATIVE (NEGATIVE); LEUKOCYTE ESTERASE ,URINE 3+ (NEGATIVE); NITRITE,URINE NEGATIVE (NEGATIVE); PH,URINE 7 (5-9); PROTEIN,URINE 3+ (NEGATIVE); UROBILINOGEN,URINE NORMAL (NORMAL)
[2016-11-05] MEDS ORDERED: RX-NITROFURANTOIN 100 MG (MACROBID) CAP PPK#2 PO STA (19:58)
[2016-11-05] MEDS ORDERED: NITR-65 PO (19:59)
[2016-11-05 20:09] VITALS: BP 143/82
--- NOTE | 2016-11-05 20:38 | Diagnostic Imaging Report ---
Portable erect AP chest at 737 hours. INDICATION: Leukocytosis. FINDINGS: The mild cardiomegaly and the chronic pulmonary changes seen on the prior exam of 10/24/16 are again evident and no different. There is no sign of failure, pneumonia or pleural effusion to suggest an acute abnormality. The mediastinum is not widened. The osseous structures are intact. IMPRESSION: Stable chest. There has been no adverse change since the prior exam. There is no acute abnormality identified. Dictated by: Dictated on workstation # [id number]
--- OUTSIDE RECORDS SUMMARY | 2016-11-08 14:05 | XMS REPORT | Continuity of Care Document ---
Author Author [facility] Organization [facility] Address Unknown Phone Unavailable Care Team Providers Care Fire Protection Inspector Name Role Phone Bhaskar Alcantara PCP [phone] Source Comments Some departments are not documenting in the electronic medical record. If you do not see the information that you expected, contact Release of Information in the Health Information Management department at [phone] for further assistance in locating additional records.[facility] Active Allergies and Adverse Reactions Allergen Noted [...] Taken Blood Pressure 147/94 04/24/2016 4:02 PM COBOL MAINFRAME DEVELOPER Pulse 88 04/24/2016 4:02 PM COBOL MAINFRAME DEVELOPER Temperature - - Respiratory Rate 16 11/22/2015 2:32 PM CDT Height 1.753 m (5' 9") 04/24/2016 4:02 PM COBOL MAINFRAME DEVELOPER Weight 108.863 kg (240 lb) 04/24/2016 4:02 PM COBOL MAINFRAME DEVELOPER Body Mass Index 35.43 04/24/2016 4:02 PM COBOL MAINFRAME DEVELOPER Oxygen Saturation - - Plan of Care [...]
== END 2016-11-05 20:08 ==
LOC: EDUNIT# 19:15 → ER 19:16
DX: T83.098A Other mechanical complication of other urinary catheter, initial encounter (principal); N39.0 Urinary tract infection, site not specified; L89.319 Pressure ulcer of right buttock, unspecified stage; L89.329 Pressure ulcer of left buttock, unspecified stage; J44.9 Chronic obstructive pulmonary disease, unspecified; J42 Unspecified chronic bronchitis; I25.10 Atherosclerotic heart disease of native coronary artery without angina pectoris; I10 Essential (primary) hypertension; F03.90 Unspecified dementia, unspecified severity, without behavioral disturbance, psychotic disturbance, mood disturbance, and anxiety; E11.40 Type 2 diabetes mellitus with diabetic neuropathy, unspecified; K21.9 Gastro-esophageal reflux disease without esophagitis; F32.9 Major depressive disorder, single episode, unspecified; M19.90 Unspecified osteoarthritis, unspecified site; R60.0 Localized edema; N40.1 Benign prostatic hyperplasia with lower urinary tract symptoms; F17.210 Nicotine dependence, cigarettes, uncomplicated; Z96.0 Presence of urogenital implants; Z95.5 Presence of coronary angioplasty implant and graft; Z79.4 Long term (current) use of insulin; Z90.79 Acquired absence of other genital organ(s)
CPT/HCPCS: 51702; 71010; 81000; 87088

== ENCOUNTER → 2017-05-25 | Outpatient (CLI) | payer MEDICARE, MEDICAID ==
[~2017-05-25] MED LIST changes: -METO-272 PO; -METO-274 PO; +METO-370 PO; +METO-395 PO; +NITR-65 PO
== END ==
LOC: CARD 11:47
PROVIDERS: ATTEND Physician Assistant
DX: I25.10 Atherosclerotic heart disease of native coronary artery without angina pectoris (principal); I10 Essential (primary) hypertension; E78.2 Mixed hyperlipidemia; G47.33 Obstructive sleep apnea (adult) (pediatric)
CPT/HCPCS: 93306

== ENCOUNTER → 2017-05-30 | Outpatient (CLI) | payer MEDICARE, MEDICAID ==
[~2017-05-30] VITALS: Ht 175.3 cm; Wt 111.1 kg
[~2017-05-30] MED LIST changes: +CATHETER FLUSH 10 ML SYR IV PRN; +REGADENOSON 0.4 MG/5 ML SYR (LEXISCAN) IV ONE
--- NOTE | 2017-05-30 16:47 | STRESS TEST ---
DATE OF SERVICE: 05/30/2017 PHARMACOLOGICAL NUCLEAR STRESS REPORT PRIMARY PHYSICIAN: Bhaskar Alcantara MD. ATTENDING PHYSICIAN: RAMIRO Lassiter. PRIMARY BULB GRADER: Anamika Murphy MD. INTERPRETING BULB GRADER: Declan Welch MD. DIAGNOSIS: Coronary artery disease. PROCEDURE DETAILS: The patient was brought to the stress lab after informed consent was taken. Lexiscan stress test was performed according to the protocol. A 0.4 mg of Lexiscan was given IV. Baseline EKG showed sinus rhythm at 71 BPM. Right bundle branch was noted. Blood pressure was 123/81 mmHg. Maximum heart rate was 82 BPM with blood pressure of 154/86 mmHg. There was no chest pain, EKG changes or arrhythmias noted during the stress test. A 10.75 mCi of Myoview were given for rest imaging and 30.5 mCi of Myoview were given for stress imaging. TID is 1.05. EF 79% with no wall motion abnormalities. There is anterior apical and inferior reversible defect. Small sized intermediate intensity. CONCLUSION: 1. Pharmacological stress test negative for ischemia. 2. Normal LV function with no wall motion abnormalities. 3. Evidence of anterior, apical and inferior ischemia is noted. Clinical correlation is recommended. Job ID: [id number] DocumentID: [id number] Dictated Date: 05/30/2017 16:13:22 Foil Spinner Date: 05/30/2017 16:46:10 Dictated By: DECLAN WELCH MD
== END ==
LOC: CARD 07:43
PROVIDERS: ATTEND Physician Assistant
DX: I25.10 Atherosclerotic heart disease of native coronary artery without angina pectoris (principal); I10 Essential (primary) hypertension; E78.2 Mixed hyperlipidemia; G47.33 Obstructive sleep apnea (adult) (pediatric)
CPT/HCPCS: 78452; 93017

== ENCOUNTER → 2018-09-29 | Emergency (ER) | payer MEDICARE, MEDICAID | LOC: ER 17:36 ==

== ENCOUNTER → 2018-10-07 | Outpatient (CLI) | payer MEDICARE, MEDICAID ==
[~2018-10-07] MED LIST changes: -AMLO10TA2 PO; +AMLO10TA7 PO; +AMLO5TAB9 PO; +BETH25TA PO; +BUDE90AE2 IH; -CATHETER FLUSH 10 ML SYR IV PRN; -CITA20TA7 PO; +CITA20TA9 PO; +DOXY100C42 PO; +FURO20TA4 PO; +GUAI600T43 PO; -IPRA3AMP INH; +IPRA3AMP31 INH; -LOSA100T28 PO; +LOSA100T57 PO; -LOSA50TA36 PO; +LOSA50TA63 PO; +METH4TAB PO; +NYST1POW22 MC; -POLY255P PO; +POLY255P16 PO; -REGADENOSON 0.4 MG/5 ML SYR (LEXISCAN) IV ONE
--- NOTE | 2018-10-07 17:07 | Diagnostic Imaging Report ---
INDICATION: Fall with shortness of breath and chest pain. TECHNIQUE: PA and lateral views of the chest were obtained at 2:28 PM. COMPARISON: 09/29/2018. FINDINGS: The heart is borderline in size. There are chronic appearing increased interstitial markings with central vascular prominence. There is no acute consolidation, pneumothorax, or pleural fluid. There is no overt bony abnormality in the chest. The findings are stable compared with 09/29/2018. IMPRESSION: Borderline heart size with chronic changes. No acute process in the chest. Dictated by: Dictated on workstation # [id number]
--- NOTE | 2018-10-07 17:46 | Diagnostic Imaging Report ---
INDICATION: Shortness of air. Chest pain. Fall. COMPARISON: CT abdomen and pelvis dated 09/28/2016. FINDINGS: Three radiographic views of the left ribs were obtained. There is an old healed fracture involving the anterolateral left eighth rib. No displaced acute-appearing left-sided rib fractures are identified. Included portions of the left lung are clear. No unexpected radiopaque foreign bodies are seen. IMPRESSION: 1. No acute displaced left rib fractures. 2. Old healed left eighth rib fracture. Dictated by: Dictated on workstation # [id number]
== END ==
LOC: RAD 14:11
PROVIDERS: ATTEND Internal Medicine
DX: J44.9 Chronic obstructive pulmonary disease, unspecified (principal); W19.XXXA Unspecified fall, initial encounter; Z87.81 Personal history of (healed) traumatic fracture
CPT/HCPCS: 71046; 71100

== ENCOUNTER → 2019-02-12 | Outpatient (CLI) | payer MEDICARE, MEDICAID ==
[~2019-02-12] MED LIST changes: +HOLD METFORMIN - RECEIVED CONTRAST 20 ML VIAL IV SCH; +IOHEXOL 350 MG/ML 100 ML (OMNIPAQUE 350) VIAL IV ONE; +NS 100 ML (IVPB) BAG IV ONE
[2019-02-12 16:13] LABS: BASOPHILS % (AUTO) 0 % (0-10); EOSINOPHILS % (AUTO) 0 % (0-10); HEMATOCRIT 44 % (40-54); HEMOGLOBIN 14.7 G/DL (13.3-17.7); LYMPHOCYTES # (AUTO) 1.2 X 10^3 (1.0-4.0); LYMPHOCYTES % (AUTO) 12 % (12-44); MEAN CORPUSCULAR HEMOGLOBIN 29 PG (25-34); MEAN CORPUSCULAR HGB CONC 33 G/DL (32-36); MEAN CORPUSCULAR VOLUME 88 FL (80-99); MEAN PLATELET VOLUME 10.8 FL (7.4-10.4); MONOCYTES # (AUTO) 0.5 X 10^3 (0.0-1.0); MONOCYTES % (AUTO) 5 % (0-12); NEUTROPHILS # (AUTO) 8.3 X 10^3 (1.8-7.8); NEUTROPHILS % (AUTO) 83 % (42-75); PLATELET COUNT 178 10^3/uL (130-400); RED CELL DISTRIBUTION WIDTH 13.8 % (10.0-14.5); WHITE BLOOD COUNT 9.9 10^3/uL (4.3-11.0)
--- NOTE | 2019-02-12 16:17 | Diagnostic Imaging Report ---
PROCEDURE: CT chest with contrast only. TECHNIQUE: Multiple contiguous axial images were obtained through the chest after administration of intravenous contrast. Auto Exposure Controls were utilized during the CT exam to meet ALARA standards for radiation dose reduction. INDICATION: Chest pain COMPARISON: Radiographs dated 10/07/[address] dated 03/20/2016 FINDINGS: 1 cm hypodense nodule noted within the right lobe of the thyroid gland. No significant adenopathy within the chest. Scattered vascular calcifications, particularly within the coronary arteries. No aneurysmal dilatation of the thoracic aorta. The heart is within normal limits in size. No pericardial effusion. No pleural effusion. Bilateral gynecomastia. No pneumothorax. Mild background interstitial and reticular opacities are noted throughout the lungs bilaterally, particularly dependently. Minimal background emphysematous changes. The lungs otherwise appear clear. Diffusely decreased density of the liver. Cholecystectomy. Moderate bilateral hydronephrosis is again identified. This appears improved when compared to prior CT of the abdomen from September 2016. Visualized upper abdomen is otherwise unremarkable. Scattered osseous degenerative changes without acute osseous abnormality. IMPRESSION: 1. Minimal background emphysematous changes without superimposed acute abnormality. 2. 1 cm right thyroid nodule. Recommend an ultrasound of the thyroid gland for further evaluation. 3. Bilateral hydronephrosis is partially visualized. Of note, this appears slightly improved when compared to prior imaging from September 2016. 4. Fatty infiltration of the liver. 5. Additional findings as above. Dictated by: Dictated on workstation # [id number]
[2019-02-12 16:37] LABS: INR 1.1 (0.8-1.4); PROTHROMBIN TIME PATIENT 14.2 SEC (12.2-14.7)
[2019-02-12 16:46] LABS: ALBUMIN 3.9 GM/DL (3.2-4.5); BILIRUBIN,TOTAL 0.5 MG/DL (0.1-1.0); CALCIUM 9.1 MG/DL (8.5-10.1); CREATININE SERUM 1.62 MG/DL (0.60-1.30); POTASSIUM 4.5 MMOL/L (3.6-5.0); TOTAL PROTEIN 7.5 GM/DL (6.4-8.2)
== END ==
LOC: RAD 15:18
PROVIDERS: ATTEND Internal Medicine
DX: J44.9 Chronic obstructive pulmonary disease, unspecified (principal); J20.9 Acute bronchitis, unspecified; E04.1 Nontoxic single thyroid nodule; N13.30 Unspecified hydronephrosis; K76.0 Fatty (change of) liver, not elsewhere classified; I25.10 Atherosclerotic heart disease of native coronary artery without angina pectoris; N62 Hypertrophy of breast; R31.9 Hematuria, unspecified; M89.8X9 Other specified disorders of bone, unspecified site; Z90.49 Acquired absence of other specified parts of digestive tract
CPT/HCPCS: 36415; 71260; 80053; 85025; 85610; 85730

== ENCOUNTER → 2019-02-21 | Outpatient (CLI) | payer MEDICARE, MEDICAID ==
[~2019-02-21] MED LIST changes: +ASCO500T7 PO; +BETH50TA9 PO; -HOLD METFORMIN - RECEIVED CONTRAST 20 ML VIAL IV SCH; +IBUP-1780 PO; +INSU100I14 SQ; +INSU100V31 IJ; -IOHEXOL 350 MG/ML 100 ML (OMNIPAQUE 350) VIAL IV ONE; +ISOS30TA3 PO; -METO-370 PO; -METO-395 PO; +METO50TA7 PO; +MTP100TCR PO; -NS 100 ML (IVPB) BAG IV ONE; +NYST15CR TP; +POTA-51 PO; +PRD20T PO; +SIMV10TA26 PO; -TAMS0.4C98 PO; +TIOT4MIS2 IH
--- NOTE | 2019-02-21 17:04 | Diagnostic Imaging Report ---
CLINICAL INDICATION: Patient with a right thyroid nodule. COMPARISONS: None. FINDINGS: Limited exam due to patient body habitus. THYROID NODULES: None. THYROID GLAND: The thyroid gland has normal size, shape and echogenicity. The right lobe measures 3.6 cm x 1.7 cm x 2.1 cm and the left lobe measures 3.0 cm x 1.3 cm x 2.2 cm in their three dimensions. ISTHMUS: The isthmus is unremarkable and measures 4.5 mm in thickness. IMPRESSION: 1. Limited visualization of the thyroid gland due to patient body habitus. Unremarkable thyroid ultrasound, as visualized. Dictated by: Dictated on workstation # [id number]
== END ==
LOC: RAD 12:09
PROVIDERS: ATTEND Internal Medicine
DX: E04.1 Nontoxic single thyroid nodule (principal)
CPT/HCPCS: 76536

== ENCOUNTER → 2019-02-28 | Outpatient (CLI) | payer MEDICARE, MEDICAID ==
[~2019-02-28] MED LIST changes: -ASCO500T7 PO; -BETH50TA9 PO; -IBUP-1780 PO; -INSU100I14 SQ; -INSU100V31 IJ; -ISOS30TA3 PO; +METO-370 PO; +METO-395 PO; -METO50TA7 PO; -MTP100TCR PO; -NYST15CR TP; -POTA-51 PO; -PRD20T PO; -SIMV10TA26 PO; +TAMS0.4C98 PO; -TIOT4MIS2 IH
--- NOTE | 2019-02-28 08:39 | Diagnostic Imaging Report ---
PROCEDURE: CT abdomen and pelvis without contrast. TECHNIQUE: Multiple contiguous axial images were obtained through the abdomen and pelvis without the use of intravenous contrast. Auto Exposure Controls were utilized during the CT exam to meet ALARA standards for radiation dose reduction. INDICATION: Gross hematuria. Correlation is made with prior CT from 09/28/2016. The lung bases are clear of acute infiltrates. No discrete liver mass is identified. Gallbladder surgically absent. No biliary ductal dilatation is seen. Pancreas and spleen are unremarkable. No adrenal mass is identified. No renal calculi are identified. Bilateral hydroureteronephrosis is again seen, trace to urinary bladder. There is some thickening of the urinary bladder along the right posterior wall as well as the base of the bladder. Prostate appears to be normal in size. No definite ureteral calculi are seen. Aorta is calcified but non-aneurysmal. No central retroperitoneal or mesenteric lymphadenopathy is seen. Small and large bowel loops are normal caliber. There is diverticulosis of the sigmoid but no evidence of acute diverticulitis. No free fluid or fluid collection is seen. No pelvic lymphadenopathy is identified. Bony structures are unremarkable. IMPRESSION: 1. Moderate bilateral hydroureteronephrosis trace to the urinary bladder. No definite ureteral calculi are seen. There is some very mild bladder wall thickening and questionable nodularity posteriorly and to the right. Cystoscopy may be useful for further evaluation. No other significant abnormality is seen apart from uncomplicated diverticulosis. Dictated by: Dictated on workstation # [id number]
== END ==
LOC: RAD 08:06
PROVIDERS: ATTEND Urology
DX: N13.30 Unspecified hydronephrosis (principal); K57.30 Diverticulosis of large intestine without perforation or abscess without bleeding; N32.89 Other specified disorders of bladder
CPT/HCPCS: 74176

== ENCOUNTER → 2019-03-21 | Outpatient (CLI) | payer MEDICARE, MEDICAID ==
--- NOTE | 2019-03-21 14:15 | Diagnostic Imaging Report ---
PROCEDURE: CT abdomen and pelvis without contrast. TECHNIQUE: Multiple contiguous axial images were obtained through the abdomen and pelvis without the use of intravenous contrast. Auto Exposure Controls were utilized during the CT exam to meet ALARA standards for radiation dose reduction. INDICATION: Hydronephrosis. Study is performed for further evaluation. Correlation is made with prior CT from 02/28/2019. The lung bases are clear. The bladder is decompressed with a Shafer catheter. The degree of bilateral hydroureteronephrosis noted on prior CT has decreased. There is some mild prominence of the renal collecting systems and ureters. No calculi are seen. Aorta is calcified but non-aneurysmal. The liver and spleen are unremarkable. Gallbladder surgically absent. The pancreas and adrenal glands are unremarkable. Small and large bowel loops are normal caliber. There is no obstruction. There is no ascites. IMPRESSION: Decompression of the urinary bladder with a Shafer catheter. Previously noted moderate bilateral hydroureteronephrosis has improved and is only mild on today's exam. Otherwise the study is unchanged. Dictated by: Dictated on workstation # [id number]
== END ==
LOC: RAD 13:35
PROVIDERS: ATTEND Urology
DX: N13.30 Unspecified hydronephrosis (principal); N32.89 Other specified disorders of bladder; Z96.0 Presence of urogenital implants
CPT/HCPCS: 74176

== ENCOUNTER 2019-04-28 18:24 | Inpatient (IN) | payer MEDICARE, MEDICAID ==
[~2019-04-28] VITALS: Ht 175.3 cm; Wt 118.3 kg
[2019-04-28] MEDS ORDERED: DEXAMETHASONE 4 MG/ML SDV (DECADRON) IH ONE (18:30)
[2019-04-28] MEDS ORDERED: RT-ALBUTEROL/IPRATROPIUM 3 ML (DUONEB) VIAL INH ONE (18:30)
[2019-04-28] MEDS ORDERED: methylPREDNISolone 125 MG (Solu-MEDROL) VIAL IVP ONE (18:30)
[2019-04-28] MEDS ORDERED: ACETAMINOPHEN 500 MG TAB (TYLENOL) PO PRN ×2 (18:30→21:00)
[2019-04-28] MEDS ORDERED: CEFEPIME INJECTION 2,000 MG in WATER (STERILE) FOR INJECTION 10 ML IV ONE (18:30)
[2019-04-28] MEDS ORDERED: RT-ALBUTEROL SULF 2.5 MG/3 ML PRE-MIX VIAL INH STA (18:35)
[2019-04-28 18:42] LABS: BASOPHILS % (AUTO) 0 % (0-10); EOSINOPHILS # (AUTO) 0.6 10^3/uL (0.0-0.3); EOSINOPHILS % (AUTO) 5 % (0-10); HEMATOCRIT 43 % (40-54); HEMOGLOBIN 14.1 G/DL (13.3-17.7); LYMPHOCYTES # (AUTO) 2.1 X 10^3 (1.0-4.0); LYMPHOCYTES % (AUTO) 20 % (12-44); MEAN CORPUSCULAR HEMOGLOBIN 30 PG (25-34); MEAN CORPUSCULAR HGB CONC 33 G/DL (32-36); MEAN CORPUSCULAR VOLUME 91 FL (80-99); MEAN PLATELET VOLUME 10.9 FL (7.4-10.4); MONOCYTES # (AUTO) 0.9 X 10^3 (0.0-1.0); MONOCYTES % (AUTO) 8 % (0-12); NEUTROPHILS # (AUTO) 7.1 X 10^3 (1.8-7.8); NEUTROPHILS % (AUTO) 67 % (42-75); PLATELET COUNT 145 10^3/uL (130-400); WHITE BLOOD COUNT 10.7 10^3/uL (4.3-11.0)
--- NOTE | 2019-04-28 18:47 | ED Respiratory ---
General Chief Complaint: Respiratory Problems Stated Complaint: POSS PNEUMONIA Source: patient, EMS, intermediate records History of Present Illness Date Seen by Provider: Apr 28, 2019 Time Seen by Provider: 18:25 Initial Comments PT ARRIVES VIA EMS FROM [facility] SENT HERE BY RAMIRO HEWITT FOR DR. LANCE PT HAS HAD PRODUCTIVE COUGH WITH YELLOW SPUTUM, SHORTNESS OF BREATH AND SUBJECTIVE FEVER AND CHILLS FOR THE LAST 3 DAYS NO CHEST PAIN OR PAIN WITH BREATHING NO SWELLING IN LEGS/ FEET OR PAIN IN CALVES C/O GENERALIZED WEAKNESS. APPETITE HAS BEEN GOOD AND HAS BEEN DRINKING FLUIDS WELL NO NAUSEA/VOMITING/DIARRHEA OR ABDOMINAL PAIN PT HAS COPD AND IS O2 DEPENDENT AT 3L/NC CONTINUOUSLY PT STATES HE HAS USED INHALER 2 TIMES TODAY, AND EMS HAS [facility]O NEB TREATMENT IN PROGRESS ON ARRIVAL PT STATES HIS BREATHING IS A LITTLE BETTER SINCE STARTING NEB TREATMENT. PT CURRENTLY HAS ESCALANTE CATHETER IN PLACE, AND HAS HAD RECENT UTI, PER EMS. PCP: DR. LANCE Allergies and Home Medications Allergies Coded Allergies: Penicillins (Unverified Allergy, Mild, HIVES, 09/19/08) duloxetine HCl (Verified Allergy, Mild, 08/20/11) Home Medications Acetaminophen 325 Mg Tablet, 650 MG PO Q4H PRN for PAIN/TEMP, (Reported) TAKES 2 (325MG) TABS Albuterol Sulfate 1 Puff Puff, 2 PUFF IH Q6H PRN for SHORTNESS OF BREATH, (Reported) Amlodipine Besylate 10 Mg Tablet, 10 MG PO DAILY, (Reported) Ascorbic Acid 500 Mg Tablet, 1,500 MG PO DAILY, (Reported) Aspirin 81 Mg Tablet.dr, 81 MG PO DAILY, (Reported) Bethanechol Chloride 50 Mg Tablet, 50 MG PO QIDACHS, (Reported) Bupropion HCl 300 Mg Tab.er.24h, 300 MG PO DAILY, (Reported) Citalopram Hydrobromide 20 Mg Tablet, 20 MG PO DAILY, (Reported) Docusate Sodium 100 Mg Capsule, 100 MG PO BID, (Reported) Furosemide 20 Mg Tablet, 20 MG PO DAILY, (Reported) Ibuprofen 800 Mg Tablet, 800 MG PO Q8H PRN for PAIN-MILD, (Reported) Insulin Aspart 300 Units/3 Ml Solution, SQ TIDAC, (Reported) USE PER SLIDING SCALE: 151-200=2 UNITS 201-250=4 UNITS 251-300=6 UNITS 301- 350=8 UNITS 351-400=10 UNITS Insulin Glargine,Hum.rec.anlog 100 Unit/1 Ml Insuln.pen, 48 UNITS SQ HS, (Reported) Isosorbide Mononitrate 30 Mg Tab.er.24h, 30 MG PO DAILY, (Reported) Losartan Potassium 100 Mg Tablet, 100 MG PO DAILY, (Reported) Metoprolol Succinate 50 Mg Tab.er.24h, 50 MG PO BID, (Reported) Nystatin 15 Gm Cream..g., 1 APPLIC TP TID, (Reported) Pantoprazole Sodium 40 Mg Tablet.dr, 40 MG PO DAILY, (Reported) Potassium Chloride 20 Meq Tablet.er, 20 MEQ PO DAILY, (Reported) TAKE WITH FUROSEMIDE Risperidone 2 Mg Tablet, 2 MG PO DAILY, (Reported) Simvastatin 10 Mg Tablet, 10 MG PO HS, (Reported) Tiotropium [place] 4 Gm Mist.inhal, 2 PUFF IH DAILY, (Reported) Trazodone HCl 150 Mg Tablet, 150 MG PO HS, (Reported) Review of Systems Review of Systems Constitutional: chills, fever, malaise Past Bgzesbu-Vacqhz-Xbeatn Hx Patient Social History Alcohol Use: Denies Use Recreational Drug Use: No Smoking Status: Former Smoker Type Used: Cigarettes Former Smoker, Quit: Jun 06, 2012 2nd Hand Smoke Exposure: No Recent Foreign Travel: No Contact w/Someone Who Travel: No Recent Hopitalizations: No Immunizations Up To Date Date of Pneumonia Vaccine: Mar 07, 2010 Date of Influenza Vaccine: Mar 07, 2017 Seasonal Allergies Seasonal Allergies: No Past Medical History Surgeries: Yes (CARDIAC CATH 05/2017--PATENT STENT, NON-OCCLUSIIVE CAD--NO INTERVENTION) Cardiac, Coronary Stent, Transurethral Resection Respiratory: Yes (HX OF SEPSIS, O2 AT 3 L/NC CONTINUOUSLY) Pneumonia, Chronic Bronchitis, Sleep Apnea, COPD Currently Using CPAP: Yes Cardiac: Yes (RBBB, LAFB; CARDIAC CATHS--STENT X 1) Chronic Edema/Swelling, Coronary Artery Disease, High Cholesterol, Hypertension Neurological: Yes Dementia, Neuropathy Reproductive Disorders: No Sexually Transmitted Disease: No HIV/AIDS: No Genitourinary: Yes (INDWELLING ESCALANTE, CHRONIC BILATERAL HYDRONEPHROSIS) Benign Prostatic Hyperpl, Prostate Problems, Neurogenic Bladder, UTI-Chronic Gastrointestinal: Yes Gastroesophageal Reflux, Chronic Constipation Musculoskeletal: Yes Arthritis, Chronic Back Pain Endocrine: Yes Diabetes, Insulin dep HEENT: Yes Cataract Hearing Impairment: Hard of Hearing Cancer: No Psychosocial: Yes Sleep Difficulties, Anxiety, Depression Integumentary: No Blood Disorders: No Adverse Reaction/Blood Tranf: No Family Medical History Family history: Hypertension 03 FATHER Stroke 03 MOTHER No Pertinent Family Hx Physical Exam Vital Signs - First Documented 04/28/19 04/28/19 18:24 19:06 Temp 36.7 Pulse 69 Resp 18 B/P (MAP) 126/63 (84) Pulse Ox 97 O2 Delivery Room Air O2 Flow Rate 3.00 Capillary Refill : Height: 5'9.00" Weight: 260lbs. 0.0oz. [id number]; 38.4 BMI Method:Stated General Appearance: obese, other (MILDLY DYSPNEIC, MILDLY LETHARGIC. 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 tested, no motor/sensory deficits, alert, oriented x 3 Skin: normal color, warm/dry Focused Exam Lactate Level 04/28/19 18:28: Lactic Acid Level 1.58 Lactic Acid Level Laboratory Tests Test 04/28/19 18:28 Lactic Acid Level 1.58 MMOL/L (0.50-2.00) Progress/Results/Core Measures Suspected Sepsis SIRS Temperature: Pulse: Respiratory Rate: Laboratory Tests 04/28/19 18:28: White Blood Count 10.7 Blood Pressure / Mean: 04/28/19 18:28: Lactic Acid Level 1.58 Laboratory Tests 04/28/19 18:28: Creatinine 2.08H, INR Comment 1.1, Platelet Count 145, Total Bilirubin 0.4 Results/Orders Lab Results Laboratory Tests Test 04/28/19 18:28 04/28/19 18:46 04/28/19 20:00 Range/Units White Blood Count 10.7 4.3-11.0 10^3/uL Red Blood Count 4.75 4.35-5.85 10^6/uL Hemoglobin 14.1 13.3-17.7 G/DL Hematocrit 43 40-54 % Mean Corpuscular Volume 91 80-99 FL Mean Corpuscular Hemoglobin 30 25-34 PG Mean Corpuscular Hemoglobin Concent 33 32-36 G/DL Red Cell Distribution Width 14.0 10.0-14.5 % Platelet Count 145 130-400 10^3/uL Mean Platelet Volume 10.9 H 7.4-10.4 FL Neutrophils (%) (Auto) 67 42-75 % Lymphocytes (%) (Auto) 20 12-44 % Monocytes (%) (Auto) 8 0-12 % Eosinophils (%) (Auto) 5 0-10 % Basophils (%) (Auto) 0 0-10 % Neutrophils # (Auto) 7.1 1.8-7.8 X 10^3 Lymphocytes # (Auto) 2.1 1.0-4.0 X 10^3 Monocytes # (Auto) 0.9 0.0-1.0 X 10^3 Eosinophils # (Auto) 0.6 H 0.0-0.3 10^3/uL Basophils # (Auto) 0.0 0.0-0.1 10^3/uL Prothrombin Time 14.2 12.2-14.7 SEC INR Comment 1.1 0.8-1.4 Activated Partial Thromboplast Time 27 24-35 SEC Sodium Level 135 135-145 MMOL/L Potassium Level 4.2 3.6-5.0 MMOL/L Chloride Level 99 98-107 MMOL/L Carbon Dioxide Level 23 21-32 MMOL/L Anion Gap 13 5-14 MMOL/L Blood Urea Nitrogen 29 H 7-18 MG/DL Creatinine 2.08 H 0.60-1.30 MG/DL Estimat Glomerular Filtration Rate 32 BUN/Creatinine Ratio 14 Glucose Level 179 H 70-105 MG/DL Lactic Acid Level 1.58 0.50-2.00 MMOL/L Calcium Level 8.7 8.5-10.1 MG/DL Corrected Calcium 8.9 8.5-10.1 MG/DL Magnesium Level 1.8 1.6-2.4 MG/DL Total Bilirubin 0.4 0.1-1.0 MG/DL Aspartate Amino Transf (AST/SGOT) 14 5-34 U/L Alanine Aminotransferase (ALT/SGPT) 18 0-55 U/L Alkaline Phosphatase 70 40-136 U/L Troponin I < 0.028 <0.028 NG/ML B-Type Natriuretic Peptide 25.7 <100.0 PG/ML Total Protein 6.9 6.4-8.2 GM/DL Albumin 3.7 3.2-4.5 GM/DL Urine Color YELLOW Urine Clarity CLEAR Urine pH 6.0 5-9 Urine Specific [place] >=1.030 1.016-1.022 Urine Protein 2+ H NEGATIVE Urine Glucose (UA) NEGATIVE NEGATIVE Urine Ketones NEGATIVE NEGATIVE Urine Nitrite NEGATIVE NEGATIVE Urine Bilirubin NEGATIVE NEGATIVE Urine Urobilinogen 0.2 < = 1.0 MG/DL Urine Leukocyte Esterase TRACE NEGATIVE Urine RBC (Auto) 1+ H NEGATIVE Urine RBC 10-25 H /HPF Urine WBC 5-10 H /HPF Urine Squamous Epithelial Cells 0-2 /HPF Urine Crystals NONE /LPF Urine Bacteria TRACE /HPF Urine Casts NONE /LPF Urine Mucus NEGATIVE /LPF Urine Culture Indicated YES Blood Gas Puncture Site LEFT RADIAL Blood Gas Patient Temperature 36.7 Arterial Blood pH 7.32 *L 7.37-7.43 Arterial Blood Partial Pressure CO2 55 H 35-45 MMHG Arterial Blood Partial Pressure O2 87 79-93 MMHG Arterial Blood HCO3 28 H 23-27 MMOL/L Arterial Blood Total CO2 29.4 21.0-31.0 MMOL/L Arterial Blood Oxygen Saturation 96 94-100 % Arterial Blood Base Excess 2.1 -2.5-2.5 MMOL/L David Test POSITIVE Blood Gas Ventilator Setting NO Blood Gas Inspired Oxygen 10L Micro Results Microbiology 04/28/19 Urine Culture - Preliminary, Resulted Culture In Progress 04/28/19 Blood Culture - Preliminary, Resulted No growth 04/28/19 Influenza Types A,B Antigen (STEPHANIE) - Final, Complete 04/28/19 Blood Culture - Preliminary, Resulted No growth My Orders Orders - AMANDA WOODSON DO Cbc With Automated Diff (04/28/19 18:26) Comprehensive Metabolic Panel (04/28/19 18:26) Blood Culture (04/28/19 18:26) Sputum Culture (04/28/19 18:26) Urinalysis (04/28/19 18:26) Urine Culture (04/28/19 18:26) Protime With Inr (04/28/19 18:26) Partial Thromboplastin Time (04/28/19 18:26) Chest 1 View, Ap/Pa Only (04/28/19 18:26) Acetaminophen Tablet (Tylenol Tablet) (04/28/19 18:30) Ed Iv/Invasive Line Start (04/28/19 18:26) Ed Iv/Invasive Line Start (04/28/19 18:26) Ekg Tracing (04/28/19 18:) Troponin I (04/28/19 18:) Vital Signs Adult Sepsis Patie Q15M (04/28/19 18:26) O2 (04/28/19 18:26) Lactic Acid Analyzer (04/28/19 18:) Influenza A And B Antigens (04/28/19 18:) Cefepime Injection (Maxipime Injection) (04/28/19 18:30) Methylprednisolone Sod Succ (Solu-Medrol (04/28/19 18:30) Albuterol/Ipra Inhalation Soln (Duoneb I (04/28/19 18:30) Dexamethasone Injection (Decadron Inject (04/28/19 18:30) Arterial Blood Gas (04/28/19 18:) BNP (04/28/19 18:) Magnesium (04/28/19 18:) Albuterol Pre-Mix Nebs (Rt) (Proventil (04/28/19 18:35) Ed Iv/Invasive Line Start (04/28/19 19:46) Ns Iv 1000 Ml (Sodium Chloride 0.9%) (04/28/19 19:46) Medications Given in ED Vital Signs/I&O 04/28/19 04/28/19 18:24 19:06 Temp 36.7 Pulse 69 Resp 18 B/P (MAP) 126/63 (84) Pulse Ox 97 95 O2 Delivery Room Air Nasal Cannula O2 Flow Rate 3.00 Capillary Refill : Progress Note : Progress Note GIVEN HOUR LONG NEB TREATMENT WIN INCREASED AERATION AND DECREASED WHEEZING, BUT STILL WITH RESIDUAL WHEEZING. STATES HE FEELS BETTER O2 SATS IN MID 90'S ON 3L/NC BP AND HEART RATE STABLE NO DETERIORATION IN PT'S CONDITION DURING ER STAY ECG Initial ECG Impression Date: Apr 28, 2019 Initial ECG Impression Time: 18:40 Initial ECG Rate: 68 Initial ECG Rhythm: Normal Sinus (RBBB, LAFB) Diagnostic Imaging Comments CXR--CHRONIC LUNG CHANGES, NO ACUTE PROCESS, PER RADIOLOGIST REPORT AT 1858 Departure Communication (Admissions) 2009--SPOKE WITH DR. COLUNGA, HOSPITALIST, ACCEPTS PT FOR ADMIT. Impression Primary Impression: COPD EXACERBATION WITH ACUTE BRONCHITIS Additional Impressions: Acute on chronic renal insufficiency IDDM (insulin dependent diabetes mellitus) Generalized weakness Acute on chronic respiratory failure Disposition: ADMITTED INPATIENT Condition: Improved Admissions Decision to Admit Reason: Admit from ER (General) Decision to Admit/Date: Apr 28, 2019 Time/Decision to Admit Time: 20:10 Departure-Patient Inst. Referrals: VERENA LANCE MD (PCP/Family) Primary Care Physician AMANDA WOODSON DO Apr 28, 2019 18:47
[2019-04-28 18:53] LABS: INR 1.1 (0.8-1.4); PROTHROMBIN TIME PATIENT 14.2 SEC (12.2-14.7)
[2019-04-28 18:53] LABS: BILIRUBIN,URINE NEGATIVE (NEGATIVE); CLARITY,URINE CLEAR; COLOR,URINE YELLOW; GLUCOSE, URINE (UA) NEGATIVE (NEGATIVE); KETONES,URINE NEGATIVE (NEGATIVE); LEUKOCYTE ESTERASE ,URINE TRACE (NEGATIVE); NITRITE,URINE NEGATIVE (NEGATIVE); PROTEIN,URINE 2+ (NEGATIVE)
--- NOTE | 2019-04-28 18:54 | Diagnostic Imaging Report ---
INDICATION: Difficulty breathing COMPARISON: 10/07/2018 FINDINGS: There is prominence of the lung markings, chronic. The heart size is stable. No vascular congestion. No infiltrate, effusion or pneumothorax. IMPRESSION: No change or acute appearing abnormality. Dictated by: Dictated on workstation # [id number]
--- NOTE | 2019-04-28 18:57 | NUR ---
Report received from ADRIAN Meza at this time to assume pt care.
[2019-04-28 18:59] LABS: BACTERIA,URINE TRACE /HPF; SQUAMOUS EPITHELIAL CELL,UR 0-2 /HPF
[2019-04-28 19:02] LABS: ALANINE AMINOTRANSFERASE 18 U/L (0-55); ALBUMIN 3.7 GM/DL (3.2-4.5); ALKALINE PHOSPHATASE 70 U/L (40-136); BILIRUBIN,TOTAL 0.4 MG/DL (0.1-1.0); BUN/CREATININE RATIO 14; CALCIUM 8.7 MG/DL (8.5-10.1); CARBON DIOXIDE 23 MMOL/L (21-32); CHLORIDE 99 MMOL/L (98-107); CREATININE SERUM 2.08 MG/DL (0.60-1.30); GFR ESTIMATED 32; GLUCOSE 179 MG/DL (70-105); MAGNESIUM 1.8 MG/DL (1.6-2.4); POTASSIUM 4.2 MMOL/L (3.6-5.0); SODIUM 135 MMOL/L (135-145); TOTAL PROTEIN 6.9 GM/DL (6.4-8.2)
[2019-04-28] MEDS ORDERED: NS IV 1000 ML 1,000 ML IV SCH ×2 (19:46→21:00)
[2019-04-28 20:06] LABS: ABG BASE EXCESS 2.1 MMOL/L (-2.5-2.5); ABG OXYGEN SATURATION 96 % (94-100); ABG PCO2 55 MMHG (35-45); ABG PO2 87 MMHG (79-93); ABG TCO2 29.4 MMOL/L (21.0-31.0); ALLENS TEST POSITIVE; INSPIRED O2 10L; PATIENT TEMP 36.7; VENTILATOR NO
[2019-04-28 20:07] LABS: ABG PH 7.32 (7.37-7.43)
[2019-04-28] MEDS ORDERED: LOPERAMIDE 2 MG (IMODIUM) TABLET PO PRN (21:00)
[2019-04-28] MEDS ORDERED: fentaNYL INJECTION 100 MCG/2 ML AMP IVP PRN (21:00)
[2019-04-28] MEDS ORDERED: ONDANSETRON 4 MG/2 ML (SDV) Z0FRAN IVP PRN (21:00)
[2019-04-28] MEDS ORDERED: MELATONIN 3 MG TABLET PO PRN (21:00)
[2019-04-28] MEDS ORDERED: guaiFENesin/CODEINE (ROBITUSSIN AC) 10ML UDC PO PRN (21:00)
[2019-04-28] MEDS ORDERED: ALPRAZolam 0.25 MG (XANAX) TAB PO PRN (21:00)
[2019-04-28] MEDS ORDERED: diphenhydrAMINE 25 MG TAB (BENADRYL) PO PRN (21:00)
[2019-04-28] MEDS ORDERED: CALCIUM CARBONATE 500 MG (TUMS) TAB.CHEW PO PRN (21:00)
[2019-04-28] MEDS ORDERED: HYDROcodone/APAP 5 MG/325 MG (LORTAB) TAB PO PRN (21:00)
[2019-04-28] MEDS ORDERED: 1/2 NS IV SOLUTION 1,000 ML IV ONE (21:24)
[2019-04-28 21:30] VITALS: BP 136/80
[2019-04-28 22:00] VITALS: BP 138/80
[2019-04-28] MEDS: SENNA W/DOCUSATE (SENOKOT S) TABLET PO SCH (22:06)
[2019-04-28] MEDS: ENOXAPARIN 40 MG/0.4 ML (LOVENOX) SYR SC SCH (22:13)
[2019-04-28] MEDS ORDERED: RT-ALBUTEROL/IPRATROPIUM 3 ML (DUONEB) VIAL INH PRN (22:15)
[2019-04-28 23:00] VITALS: BP 134/97
[2019-04-29] VITALS (13 sets, daily range): BP systolic 124–182; BP diastolic 66–138
[2019-04-29] MEDS: methylPREDNISolone 40 MG/ML (Solu-MEDROL) VIAL IV SCH ×4 (00:47→17:52)
[2019-04-29] MEDS: RT-ALBUTEROL/IPRATROPIUM 3 ML (DUONEB) VIAL INH SCH ×6 (01:42→22:12)
[2019-04-29 03:40] LABS: BASOPHILS % (AUTO) 0 % (0-10); EOSINOPHILS % (AUTO) 0 % (0-10); HEMATOCRIT 44 % (40-54); HEMOGLOBIN 14.5 G/DL (13.3-17.7); LYMPHOCYTES # (AUTO) 0.7 X 10^3 (1.0-4.0); LYMPHOCYTES % (AUTO) 9 % (12-44); MEAN CORPUSCULAR HEMOGLOBIN 30 PG (25-34); MEAN CORPUSCULAR HGB CONC 33 G/DL (32-36); MEAN CORPUSCULAR VOLUME 90 FL (80-99); MEAN PLATELET VOLUME 11.2 FL (7.4-10.4); MONOCYTES # (AUTO) 0.1 X 10^3 (0.0-1.0); MONOCYTES % (AUTO) 1 % (0-12); NEUTROPHILS # (AUTO) 7.1 X 10^3 (1.8-7.8); NEUTROPHILS % (AUTO) 90 % (42-75); PLATELET COUNT 140 10^3/uL (130-400); RED CELL DISTRIBUTION WIDTH 13.6 % (10.0-14.5); WHITE BLOOD COUNT 7.9 10^3/uL (4.3-11.0)
[2019-04-29 03:59] LABS: ALBUMIN 3.9 GM/DL (3.2-4.5); BILIRUBIN,TOTAL 0.5 MG/DL (0.1-1.0); CALCIUM 9.1 MG/DL (8.5-10.1); CREATININE SERUM 1.86 MG/DL (0.60-1.30); MAGNESIUM 1.9 MG/DL (1.6-2.4); PHOSPHORUS 3.7 MG/DL (2.3-4.7); POTASSIUM 5.2 MMOL/L (3.6-5.0); TOTAL PROTEIN 7.1 GM/DL (6.4-8.2)
[2019-04-29 05:22] LABS: LYMPHOCYTES % (MANUAL) 9 %; NEUTROPHILS % (MANUAL) 91 %
[2019-04-29 05:46] LABS: ABG BASE EXCESS 2.5 MMOL/L (-2.5-2.5); ABG OXYGEN SATURATION 95 % (94-100); ABG PCO2 51 MMHG (35-45); ABG PH 7.35 (7.37-7.43); ABG PO2 76 MMHG (79-93); ABG TCO2 29.2 MMOL/L (21.0-31.0)
[2019-04-29 05:49] LABS: ALLENS TEST POSITIVE; INSPIRED O2 4; PATIENT TEMP 36.8; VENTILATOR NO
[2019-04-29] MEDS: inSUlin ASPART (NovoLOG) 1 UNIT/0.01 ML (CHARGE PER UNIT) SC SCH ×4 (06:03→21:00)
[2019-04-29] MEDS: SENNA W/DOCUSATE (SENOKOT S) TABLET PO SCH ×2 (08:02→21:00)
--- NOTE | 2019-04-29 09:01 | History & Physical-Hospitalist ---
History of Present Illness HPI/Chief Complaint CC: Dyspnea HPI: This is a 73yo[place] patient of Dr Alcantara at [facility] who has a h/o O2 dependency along with CPAP maintenance who presented to the ER with worsened dyspnea after failing Doxycycline and Nebs and steroids for bronchitis and AECOPD. Patient is a poor historian. Patient denies pain. Patient did not require biPAP and his ABG appears improved so he will be moved to the floor to continue aggressive care. Source: patient Date Seen 04/29/19 Time Seen by a Provider: 09:00 Attending Physician Marilee Jewell DO PCP Bhaskar Alcantara MD Referring Physician Date of Admission Apr 28, 2019 at 20:00 Home Medications & Allergies Home Medications Reviewed patient Home Medication Reconciliation performed by pharmacy medication reconciliations injection molding process technician and/or nursing. Patients Allergies have been reviewed. Allergies Allergies Coded Allergies Penicillins (Unverified Allergy, Mild, HIVES, 09/19/08) duloxetine HCl (Verified Allergy, Mild, 08/20/11) Past Pliukvc-Dibpjp-Azpxak Hx Past Med/Social Hx: Reviewed Nursing Past Med/Soc Hx, Reviewed and Corrections made Patient Social History Marrital Status: single Employed/Student: retired Alcohol Use: Denies Use Recreational Drug Use: No Smoking Status: Former Smoker Former Smoker, Quit: Jun 06, 2012 Type Used: Cigarettes 2nd Hand Smoke Exposure: No Recent Foreign Travel: No Contact w/other who traveled: No Recent Hopitalizations: No Recent Infectious Disease Expo: No Immunizations Up To Date Date of Pneumonia Vaccine: Mar 07, 2010 Date of Influenza Vaccine: Mar 07, 2017 Seasonal Allergies Seasonal Allergies: No Past Medical History Surgeries: Cardiac, Coronary Stent, Transurethral Resection Respiratory: COPD, Pneumonia, Sleep Apnea Currently Using CPAP: Yes Cardiac: Chronic Edema/Swelling, Coronary Artery Disease, High Cholesterol, Hypertension Neurological: Dementia, Neuropathy Reproductive: No Sexually Transmitted Disease: No HIV/AIDS: No Genitourinary: Benign Prostatic Hyperpl, Prostate Problems, Neurogenic Bladder, UTI-Chronic Gastrointestinal: Gastroesophageal Reflux, Chronic Constipation Musculoskeletal: Arthritis, Chronic Back Pain Endocrine: Diabetes, Insulin dep HEENT: Cataract Hearing Impairment: Hard of Hearing Psychosocial: Sleep Difficulties, Anxiety, Depression History of Blood Disorders: No Adverse Reaction to Blood Schmidt: No Family History Family history: Hypertension 03 FATHER Stroke 03 MOTHER No Pertinent Family Hx Review of Systems Constitutional: see HPI Respiratory: cough, dyspnea on exertion Physical Exam Physical Exam Vital Signs Vital Signs - First Documented 04/28/19 04/28/19 18:24 19:06 Temp 36.7 Pulse 69 Resp 18 B/P (MAP) 126/63 (84) Pulse Ox 97 O2 Delivery Room Air O2 Flow Rate 3.00 Capillary Refill : Less Than 3 Seconds Height, Weight, BMI Height: 5'9.00" Weight: 260lbs. 0.0oz. 117.807034oc; 38.62 BMI Method:Stated General Appearance: No Apparent Distress, WD/WN, Chronically ill Eyes: Right Eye Normal Inspection, Right Eye PERRL HEENT: PERRL/EOMI, Normal ENT Inspection, Pharynx Normal, Moist Mucous Membranes Neck: Full Range of Motion, Normal Inspection, Non Tender Respiratory: Chest Non Tender, No Accessory Muscle Use, No Respiratory Distress, Decreased Breath Sounds, Wheezing Cardiovascular: Regular Rate, Rhythm, No Edema, No Gallop, No JVD, No Murmur, Normal Peripheral Pulses Gastrointestinal: Normal Bowel Sounds, No Organomegaly, No Pulsatile Mass, Non Tender, Soft Back: Normal Inspection, No CVA Tenderness, No Vertebral Tenderness Extremity: Normal Capillary Refill, Normal Inspection, Normal Range of Motion, Non Tender, No Calf Tenderness, No Pedal Edema Neurologic/Psychiatric: Alert, Oriented x3, No Motor/Sensory Deficits, Normal Mood/Affect Skin: Normal Color, Warm/Dry Lymphatic: No Adenopathy Results Results/Procedures Labs Laboratory Tests 04/28/19 18:28 04/29/19 03:12 Patient resulted labs reviewed. Assessment/Plan Admission Diagnosis Assessment: AECOPD Bacterial bronchitis placed on Cefepime BOBO on CPAP Dementia Debility requiring AL placement HTN OOC due to steroids DM Plan: Home meds Tx to 4th floor Admission Status: Inpatient Order (span 2 midnights) Reason for Inpatient Admission: Failed outpatient po abx and steroids for AECOPD Diagnosis/Problems Diagnosis/Problems (1) Acute on chronic respiratory failure Status: Acute (2) Acute on chronic renal insufficiency Status: Acute (3) IDDM (insulin dependent diabetes mellitus) Status: Acute (4) Bronchitis Status: Acute (5) Hypertension Status: Acute (6) Weakness generalized Status: Acute (7) COPD (chronic obstructive pulmonary disease) Status: Acute Clinical Quality Measures DVT/VTE Risk/Contraindication: Risk Factor Score Per Nursin RFS Level Per Nursing on Admit: 4+=Very High MARILEE JEWELL DO Apr 29, 2019 09:01
--- NOTE | 2019-04-29 09:02 | Diagnostic Imaging Report ---
INDICATION: Shortness of breath COMPARISON: 04/28/2019 FINDINGS: Single view of the chest demonstrates cardiac enlargement with increasing and/or new central vascular congestion. There is dependent atelectasis. There is no pneumothorax. The osseous structures are stable. IMPRESSION: Cardiac enlargement with new and/or worsening central vascular congestion. Dictated by: Dictated on workstation # [id number]
[2019-04-29] MEDS ORDERED: RT-ALBUTEROL SULF 2.5 MG/3 ML PRE-MIX VIAL IH PRN (09:15)
[2019-04-29] MEDS ORDERED: ACETAMINOPHEN 325 MG TABLET PO PRN (09:15)
[2019-04-29] MEDS ORDERED: amLODIPine 10 MG (NORVASC) TAB PO ONE (09:15)
[2019-04-29] MEDS ORDERED: hydrALAZINE (APESOLINE) 20 MG/ML VIAL ONE (10:55)
[2019-04-29] MEDS: buPROPion SR 150 MG (WELLBUTRIN SR) TAB PO SCH (11:03)
[2019-04-29] MEDS: ASCORBIC ACID (VIT C) 500 MG TABLET PO SCH (11:03)
[2019-04-29] MEDS: guaiFENesin (MUCINEX) 600 MG TAB PO SCH ×2 (11:03→21:00)
--- NOTE | 2019-04-29 11:14 | Physical Therapy Evaluation ---
PT Evaluation-General Medical Diagnosis Admission Date Apr 28, 2019 at 20:00 Medical Diagnosis: COPD Exacerbation with acute bronchitis Onset Date: Apr 28, 2019 Therapy Diagnosis Therapy Diagnosis: debility/weakness Height/Weight Height (Feet): 5 Height (Inches): 9.00 Weight (Pounds): 260 Weight (Ounces): 0.0 Precautions Precautions/Isolations: Fall Prevention, Standard Precautions Referral Physician: Fanta Reason for Referral: Evaluation/Treatment Medical History Pertinent Medical History: Arthritis, CAD, COPD, DM, Dementia, HTN, Neuropathy Current History EMS from [place] with bilateral LE edema, cough and weakness Reviewed History: Yes Social History Home: Assisted Living Prior Prior Level of Function SCALE: Activities may be completed with or without assistive devices. 3-Yzbgctauud-kagwkus completes the activity by him/herself with no assistance from a helper. 5-Set-up or Clean-up Assistance-helper sets up or cleans up; patient completes activity. Presto assists only prior to or following the activity. 4-Supervision or Touching Assistance-helper provides verbal cues and/or touching/steadying and/or contact guard assistance as patient completes activity. Assistance may be provided throughout the activity or intermittently. 3-Partial/Moderate Assistance-helper does LESS THAN HALF the effort. Presto lifts, holds or supports trunk or limbs, but provides less than half the effort. 2-Substantial/Maximal Assistance-helper does MORE THAN HALF the effort. Presto lifts or holds trunk or limbs and provides more than half the effort. 7-Bjesgwufs-kioxip does ALL the effort. Patient does none of the effort to complete the activity. Or, the assistance of 2 or more helpers is required for the patient to complete the activity. If activity was not attempted, code reason: 7-Patient Refused. 9-Not Applicable-not attempted and the patient did not perform the activity before the current illness, exacerbation or injury. 10-Not Attempted due to Environmental Limitations-(lack of equipment, weather restraints, etc.). 88-Not Attempted due to Medical Conditions or Safety Concerns. Bed Mobility: 4 Transfers (B,C,W/C): 4 Gait: 4 Stairs: 9 Indoor Mobility (Ambulation): Needed Some Help Stairs: Not Applicalbe Prior Devices Use: Walker PT Evaluation-Current Subjective Patient agrees to PT. Noted elevated BP Pain Numeric Pain Scale: 0-No Pain Location: No Pain Reported Objective Patient Orientation: Confused Attachments: Oxygen, Shafer Catheter, IV ROM/Strength ROM Lower Extremities bilateral LE WFL Strength Lower Extremities 3+/5 grossly bilateral LE Integumentary/Posture Integumentary refer to nursing notes Bladder Incontinence: Shafer Cath Posture kyphotic Neuromuscular (Tone, Coordination, Reflexes) noted bilateral UE tremors Sensory Vision: Functional Hearing: Impaired Sensation Right Lower Extremit: Impaired Sensation Left Lower Extremity: Impaired Transfers Roll Left to Right (QC): 3 Sit to Lying (QC): 3 Lying to Sitting/Side of Bed(Q: 3 Sit to Stand (QC): 3 Chair/Lrs-ec-Hmqen Xfer(QC): 3 Gait Does the Patient Walk?: Yes Mode of Locomotion: Both Anticipated Mode of Locomotion: Both Walk 10 feet (QC): 88 Walk 50 ft with 2 Turns(QC): 88 Walk 150 ft (QC): 88 Gait Assistive Device: FWW Balance Sitting Static: Normal Sitting Dynamic: Normal Standing Static: Fair Standing Dynamic: Fair Assessment/Needs 73 y.o. male, will benefit from skilled PT to address functional strength and mobility to improve current LOF to safely return to AL or NH at maximum LOF. Rehab Potential: Fair PT Fdc Goals Head Concierge Goals PT Fdc Goals Time Frame: May 10, 2019 Roll Left & Right (QC): 4 Sit to Lying (QC): 4 Lying-Sitting on Side/Bed(QC): 4 Sit to Stand (QC): 4 Chair/Dvq-qb-Rznuy Xfer(QC): 4 Toilet Transfer (QC): 4 Does the Patient Walk: Yes Walk 10 feet (QC): 4 Walk 50ft with 2 Turns (QC): 4 Walk 150 ft (QC): 9 Walking 10ft on Uneven Surface: 4 1 Step (curb) (QC): 9 4 Steps (QC): 9 12 Steps (QC): 9 PT Plan Problem List Problem List: Activity Tolerance, Functional Strength, Safety, Balance, Gait, Transfer, Bed Mobility Treatment/Plan Treatment Plan: Continue Plan of Care Treatment Plan: Bed Mobility, Education, Functional Activity Mehdi, Functional Strength, Gait, Safety, Therapeutic Exercise, Transfers Treatment Duration: May 10, 2019 Frequency: 6 times per week Estimated Hrs Per Day: .25 hour per day Patient and/or Family Agrees t: Yes Time/GCodes Time In: 1030 Time Out: 1050 Total Billed Treatment Time: 20 Total Billed Treatment 1 visit EVModC 20 min SHERLY BRADLEY PT Apr 29, 2019 11:14
--- NOTE | 2019-04-29 11:18 | Occupational Therapy Eval ---
OT Evaluation-General/PLF Medical Diagnosis Admission Date Apr 28, 2019 at 20:00 Medical Diagnosis: COPD exacerbation Onset Date: Apr 28, 2019 Therapy Diagnosis Therapy Diagnosis: Weakness Height/Weight Height (Feet): 5 Height (Inches): 9.00 Weight (Pounds): 260 Weight (Ounces): 0.0 Precautions Precautions/Isolations: Fall Prevention, Standard Precautions Safety Interventions: None Weight Bear Status Weight Bearing Restriction: Weight Bearing/Tolerated Referral Physician: Dr. Jewell Referral Reason: Activity Tolerance, Self Care, Evaluation/Treatment, Strengthening/ROM Medical History Pertinent Medical History: Arthritis, CAD, COPD, DM, Dementia, HTN, Neuropathy Additional Medical History Sepsis Current History Pt. lives in [place]. States that he became ill. Progressively worsened. Came to ER. Reviewed History: Yes Social History Home: Assisted Living Current Living Status: [place] Entry Into Home: Level Entry Pt's spouse lives with him at [place]. ADL-Prior Level of Function SCALE: Activities may be completed with or without assistive devices. 6-Yyyswjlyaw-rzyswsj completes the activity by him/herself with no assistance from a helper. 5-Set-up or Clean-up Assistance-helper sets up or cleans up; patient completes activity. [place] assists only prior to or following the activity. 4-Supervision or Touching Assistance-helper provides verbal cues and/or touching/steadying and/or contact guard assistance as patient completes activity. Assistance may be provided throughout the activity or intermittently. 3-Partial/Moderate Assistance-helper does LESS THAN HALF the effort. [place] lifts, holds or supports trunk or limbs, but provides less than half the effort. 2-Substantial/Maximal Assistance-helper does MORE THAN HALF the effort. [place] lifts or holds trunk or limbs and provides more than half the effort. 5-Hrqllqqvu-jcilgz does ALL the effort. Patient does none of the effort to complete the activity. Or, the assistance of 2 or more helpers is required for the patient to complete the activity. If activity was not attempted, code reason: 7-Patient Refused. 9-Not Applicable-not attempted and the patient did not perform the activity before the current illness, exacerbation or injury. 10-Not Attempted due to Environmental Limitations-(lack of equipment, weather restraints, etc.). 88-Not Attempted due to Medical Conditions or Safety Concerns. ADL PLOF Comments Pt. reports that he requires assistance at [place] for ADLs such as bathing and dressing. Self Care: Needed Some Help Functional Cognition: Unknown DME/Equipment: Shower DME/Equipment Comments Pt. states that he uses a walker to ambulate. OT Current Status Subjective No pain reported. Appearance Pt. in bed. Agrees to work with OT. Mental Status/Objective Patient Orientation: Person, Place Attachments: Shafer Catheter, IV, Oxygen, Telemetry ADL-Treatment Upper Body Dressing (QC): 2 (Pt. required max assist to doff shirt while seated on side of bed. OT donned fresh gown.) On/Off Footwear (QC): 1 Pt. agrees to treatment. Transferred supine-sit with mod/max assist. Sat on side of bed and attempted to doff shirt. OT had to unhook lines and assist with this, as pt. could not bring over his head. Pt. stood with walker and min assist and able to take several steps toward HOB. Transferred sit-supine with mod assist. Had difficulty positioning self in bed to comfort level. OT assisted with this and pt. reports that he is comfortable. All needs met. Education OT Patient Education: Correct positioning, Modified ADL techniques, Progress toward Goal/Update tx plan, Purpose of tx/functional activities, Reviewed precautions, Rehab process, Transfer techniques Teaching Recipient: Patient Teaching Methods: Demonstration, Discussion Response to Teaching: Verbalize Understanding, Return Demonstration OT Short Term Goals Short Term Goals Time Frame: May 06, 2019 Eatin Oral hygiene: 4 Toileting hygiene: 3 OT Custodial Goals Production Solderer Goals Time Frame: May 13, 2019 Eating (QC): 5 Oral Hygiene (QC): 5 Toileting Hygiene (QC): 5 Shower/Bathe Self (QC): 9 Upper Body Dressing (QC): 9 Lower Body Dressing (QC): 9 On/Off Footwear (QC): 9 Additional Goals: 1-Demonstrate ADL Tasks, 2-Verbalize Understanding, 3- ImproveStrength/Mehdi 1=Demonstrate adherence to instructed precautions during ADL tasks. 2=Patient will verbalize/demonstrate understanding of assistive devices/modifications for ADL. 3=Patient will improve strength/tolerance for activity to enable patient to perform ADL's. OT Education/Plan Problem List/Assessment Assessment: Decreased Activ Tolerance, Decreased UE Strength, Dependent Transfers, Impaired Bed Mobility, Impaired Funct Balance, Impaired I ADL's, Impaired Self-Care Skills Discharge Recommendations Plan/Recommendations: Continue POC Therapy Discharge Recommendati: Post Acute OT Treatment Plan/Plan of Care Treatment,Training & Education: Yes Patient would benefit from OT for education, treatment and training to promote independence in ADL's, mobility, safety and/or upper extremity function for ADL's. Plan of Care: ADL Retraining, Functional Mobility, UE Funct Exercise/Act Treatment Duration: May 13, 2019 Frequency: 5 times per week Estimated Hrs Per Day: .25 hour per day Agreement: Yes Rehab Potential: Fair Time/GCodes Start Time: 10:17 Stop Time: 10:35 Total Time Billed (hr/min): 18 Billed Treatment Time 1, SAURABH CRISOSTOMO OT Apr 29, 2019 11:18
[2019-04-29] MEDS ORDERED: cloNIDine 0.1 MG (CATAPRES) TAB PO PRN (11:45)
[2019-04-29] MEDS ORDERED: hydrALAZINE (APESOLINE) 20 MG/ML VIAL IV PRN (11:45)
--- NOTE | 2019-04-29 12:12 | NUR ---
Patient transferred to [facility] per RECLINER accompanied byICU research staff member. Patient and family notified and understand transfer. Personal belongings with patient. Report given to THIS RN.
[2019-04-29] MEDS: BETHANECHOL 25 MG (URECHOLINE) TAB PO SCH ×3 (13:13→21:00)
[2019-04-29] MEDS ORDERED: INSU100V31 IJ (13:23)
[2019-04-29] MEDS ORDERED: ASPI-983 PO (13:23)
[2019-04-29] MEDS ORDERED: ASCO500T7 PO (13:23)
[2019-04-29] MEDS ORDERED: NYST15CR TP (13:23)
[2019-04-29] MEDS ORDERED: BETH50TA9 PO (13:23)
[2019-04-29] MEDS ORDERED: TIOT4MIS2 IH (13:23)
[2019-04-29] MEDS ORDERED: POTA-51 PO (13:23)
[2019-04-29] MEDS ORDERED: ISOS30TA3 PO (13:28)
[2019-04-29] MEDS ORDERED: IBUP-1780 PO (13:28)
[2019-04-29] MEDS ORDERED: INSU100I14 SQ (13:40)
--- NOTE | 2019-04-29 13:42 | NUR ---
ENTERED MED REC USING THE MAR FROM [facility]. I ALSO CALLED [facility] TO VERIFY WHAT INSULIN THEY RECEIVED LAST AND I WAS TOLD NOVOLOG PENS ON 01-02-2019 FOR 5 PENS
[2019-04-29] MEDS: CEFEPIME INJECTION 2,000 MG in WATER (STERILE) FOR INJECTION 20 ML IV SCH (17:53)
[2019-04-29] MEDS: RT-FLUTICASONE 110 MCG (FLOVENT) PER PUFF INH SCH (18:23)
[2019-04-29] MEDS ORDERED: CEFEPIME INJECTION 2,000 MG in WATER (STERILE) FOR INJECTION 20 ML IV SCH (18:30)
[2019-04-29] MEDS ORDERED: NON-FORMULARY MEDICATION 1 EA EA (Nystatin 1 EACH) MC SCH (21:00)
[2019-04-29] MEDS: SIMvastatin 10 MG (ZOCOR) TAB PO SCH (21:00)
[2019-04-29] MEDS: ENOXAPARIN 40 MG/0.4 ML (LOVENOX) SYR SC SCH (21:00)
[2019-04-29] MEDS: traZODone 150 MG (DESYREL) TABLET PO SCH (21:00)
[2019-04-29] MEDS: OMEGA 3 (FISH OIL) 1000 MG CAP PO SCH (21:00)
[2019-04-29] MEDS: meTOproloL SUCCINATE 50 MG (TOPROL XL) TAB PO SCH (21:00)
[2019-04-29] MEDS: TICAGRELOR 90 MG TABLET (BRILINTA) PO SCH (21:00)
[2019-04-29] MEDS: DOCUSATE SODIUM 100 MG (COLACE) CAP PO SCH (22:11)
[2019-04-30] VITALS (7 sets, daily range): BP systolic 135–187; BP diastolic 76–91
[2019-04-30] MEDS: RT-ALBUTEROL/IPRATROPIUM 3 ML (DUONEB) VIAL INH SCH ×6 (02:12→22:27)
[2019-04-30] MEDS: methylPREDNISolone 40 MG/ML (Solu-MEDROL) VIAL IV SCH ×3 (05:53→11:14)
[2019-04-30] MEDS: inSUlin ASPART (NovoLOG) 1 UNIT/0.01 ML (CHARGE PER UNIT) SC SCH ×4 (05:55→21:07)
[2019-04-30] MEDS: RT-FLUTICASONE 110 MCG (FLOVENT) PER PUFF INH SCH ×2 (07:13→20:03)
[2019-04-30] MEDS: BETHANECHOL 25 MG (URECHOLINE) TAB PO SCH ×4 (08:44→21:06)
[2019-04-30] MEDS: buPROPion SR 150 MG (WELLBUTRIN SR) TAB PO SCH (08:44)
[2019-04-30] MEDS: OMEGA 3 (FISH OIL) 1000 MG CAP PO SCH ×2 (08:44→21:05)
[2019-04-30] MEDS: guaiFENesin (MUCINEX) 600 MG TAB PO SCH ×2 (08:44→21:06)
[2019-04-30] MEDS: SENNA W/DOCUSATE (SENOKOT S) TABLET PO SCH ×2 (08:44→21:06)
[2019-04-30] MEDS: risperiDONE 2 MG (RisperDAL) TAB PO SCH (08:45)
[2019-04-30] MEDS: meTOproloL SUCCINATE 50 MG (TOPROL XL) TAB PO SCH ×2 (08:45→21:07)
[2019-04-30] MEDS: DOCUSATE SODIUM 100 MG (COLACE) CAP PO SCH ×2 (08:45→21:05)
[2019-04-30] MEDS: TICAGRELOR 90 MG TABLET (BRILINTA) PO SCH ×2 (08:45→21:05)
[2019-04-30] MEDS: FUROSEMIDE 20 MG (LASIX) TAB PO SCH (08:45)
[2019-04-30] MEDS: LOSARTAN 100 MG (COZAAR) TABLET PO SCH (08:46)
[2019-04-30] MEDS: PANTOPRAZOLE 40 MG (PROTONIX) TAB PO SCH (08:46)
[2019-04-30] MEDS: amLODIPine 10 MG (NORVASC) TAB PO SCH (08:46)
[2019-04-30] MEDS: ASCORBIC ACID (VIT C) 500 MG TABLET PO SCH (08:46)
--- NOTE | 2019-04-30 13:17 | Progress Note - Hospitalist ---
Subjective HPI/CC On Admission Date Seen by Provider: Apr 30, 2019 Time Seen by Provider: 09:30 CC: Dyspnea HPI: This is a 73yoWM [place] patient of Dr Alcantara at [facility] who has a h/o O2 dependency along with CPAP maintenance who presented to the ER with worsened dyspnea after failing Doxycycline and Nebs and steroids for bronchitis and AECOPD. Patient is a poor historian. Patient denies pain. Patient did not require biPAP and his ABG appears improved so he will be moved to the floor to continue aggressive care. Subjective/Events-last exam Patient feels better Chronic debility precludes rapid improvement O2 maintained Will decrease IV steroids No pain is reported PT/OT ordered No BM yet Review of Systems Pulmonary: Dyspnea Focused Exam Lactate Level 04/28/19 18:28: Lactic Acid Level 1.58 Objective Exam Vital Signs Vital Signs Date Time Temp Pulse Resp B/P (MAP) Pulse Ox O2 Delivery O2 Flow Rate FiO2 04/30/19 16:10 36.8 95 18 187/79 (115) 93 Nasal Cannula 4.00 Capillary Refill : Less Than 3 SecondsLess Than 3 Seconds General Appearance: No Apparent Distress, WD/WN, Chronically ill, Obese Respiratory: Chest Non Tender, Lungs Clear, Normal Breath Sounds, No Accessory Muscle Use, No Respiratory Distress, Decreased Breath Sounds Cardiovascular: Regular Rate, Rhythm, No Edema, No Gallop, No JVD, No Murmur, Normal Peripheral Pulses Neurologic/Psychiatric: Alert, Oriented x3, No Motor/Sensory Deficits, Normal Mood/Affect Results/Procedures Lab Patient resulted labs reviewed. Assessment/Plan Assessment and Plan Assess & Plan/Chief Complaint Assessment: AECOPD Bacterial bronchitis placed on Cefepime BOBO on CPAP Dementia Debility requiring AL placement HTN OOC due to steroids DM CRI Hyperkalemia Plan: Home meds IV abx Decrease steroids Diagnosis/Problems Diagnosis/Problems (1) Acute on chronic respiratory failure Status: Acute (2) Acute on chronic renal insufficiency Status: Acute (3) IDDM (insulin dependent diabetes mellitus) Status: Acute (4) Bronchitis Status: Acute (5) Hypertension Status: Acute (6) Weakness generalized Status: Acute (7) COPD (chronic obstructive pulmonary disease) Status: Acute Clinical Quality Measures DVT/VTE Risk/Contraindication: Risk Factor Score Per Nursin RFS Level Per Nursing on Admit: 4+=Very High CARLOS COLUNGA DO Apr 30, 2019 13:17
[2019-04-30] MEDS: CEFEPIME INJECTION 2,000 MG in WATER (STERILE) FOR INJECTION 20 ML IV SCH (18:03)
[2019-04-30] MEDS ORDERED: methylPREDNISolone 40 MG/ML (Solu-MEDROL) VIAL IV SCH (21:00)
[2019-04-30] MEDS: traZODone 150 MG (DESYREL) TABLET PO SCH (21:05)
[2019-04-30] MEDS: SIMvastatin 10 MG (ZOCOR) TAB PO SCH (21:06)
[2019-04-30] MEDS: ENOXAPARIN 40 MG/0.4 ML (LOVENOX) SYR SC SCH (21:06)
[2019-05-01] MEDS: RT-ALBUTEROL/IPRATROPIUM 3 ML (DUONEB) VIAL INH SCH ×3 (02:07→11:02)
[2019-05-01 03:06] VITALS: BP 160/82
[2019-05-01] MEDS: inSUlin ASPART (NovoLOG) 1 UNIT/0.01 ML (CHARGE PER UNIT) SC SCH (06:00)
[2019-05-01 06:27] LABS: BASOPHILS % (AUTO) 0 % (0-10); EOSINOPHILS % (AUTO) 0 % (0-10); HEMATOCRIT 46 % (40-54); HEMOGLOBIN 15.3 G/DL (13.3-17.7); LYMPHOCYTES # (AUTO) 0.7 X 10^3 (1.0-4.0); LYMPHOCYTES % (AUTO) 5 % (12-44); MEAN CORPUSCULAR HEMOGLOBIN 30 PG (25-34); MEAN CORPUSCULAR HGB CONC 34 G/DL (32-36); MEAN CORPUSCULAR VOLUME 89 FL (80-99); MEAN PLATELET VOLUME 11.7 FL (7.4-10.4); MONOCYTES # (AUTO) 0.3 X 10^3 (0.0-1.0); MONOCYTES % (AUTO) 2 % (0-12); NEUTROPHILS # (AUTO) 12.2 X 10^3 (1.8-7.8); NEUTROPHILS % (AUTO) 93 % (42-75); PLATELET COUNT 147 10^3/uL (130-400); RED CELL DISTRIBUTION WIDTH 13.6 % (10.0-14.5); WHITE BLOOD COUNT 13.1 10^3/uL (4.3-11.0)
[2019-05-01 06:57] LABS: ALBUMIN 3.8 GM/DL (3.2-4.5); BILIRUBIN,TOTAL 0.5 MG/DL (0.1-1.0); CALCIUM 9.2 MG/DL (8.5-10.1); CREATININE SERUM 1.77 MG/DL (0.60-1.30); POTASSIUM 4.7 MMOL/L (3.6-5.0); TOTAL PROTEIN 7.1 GM/DL (6.4-8.2)
[2019-05-01] MEDS: RT-FLUTICASONE 110 MCG (FLOVENT) PER PUFF INH SCH (07:41)
[2019-05-01 08:00] VITALS: BP 172/81
[2019-05-01] MEDS: LOSARTAN 100 MG (COZAAR) TABLET PO SCH (08:04)
[2019-05-01] MEDS: ASCORBIC ACID (VIT C) 500 MG TABLET PO SCH (08:05)
[2019-05-01] MEDS: risperiDONE 2 MG (RisperDAL) TAB PO SCH (08:06)
[2019-05-01] MEDS: meTOproloL SUCCINATE 50 MG (TOPROL XL) TAB PO SCH (08:06)
[2019-05-01] MEDS: buPROPion SR 150 MG (WELLBUTRIN SR) TAB PO SCH (08:06)
[2019-05-01] MEDS: amLODIPine 10 MG (NORVASC) TAB PO SCH (08:06)
[2019-05-01] MEDS: OMEGA 3 (FISH OIL) 1000 MG CAP PO SCH (08:07)
[2019-05-01] MEDS: SENNA W/DOCUSATE (SENOKOT S) TABLET PO SCH (08:07)
[2019-05-01] MEDS: TICAGRELOR 90 MG TABLET (BRILINTA) PO SCH (08:07)
[2019-05-01] MEDS: PANTOPRAZOLE 40 MG (PROTONIX) TAB PO SCH (08:07)
[2019-05-01] MEDS: FUROSEMIDE 20 MG (LASIX) TAB PO SCH (08:08)
[2019-05-01] MEDS: BETHANECHOL 25 MG (URECHOLINE) TAB PO SCH (08:08)
[2019-05-01] MEDS: DOCUSATE SODIUM 100 MG (COLACE) CAP PO SCH (08:08)
[2019-05-01] MEDS: guaiFENesin (MUCINEX) 600 MG TAB PO SCH (08:16)
[2019-05-01] MEDS ORDERED: predniSONE 20 MG TAB PO SCH (09:00)
[2019-05-01] MEDS ORDERED: PRD20T PO (10:26)
[2019-05-01] MEDS ORDERED: CEFD300C3 PO (10:26)
--- NOTE | 2019-05-01 11:40 | NUR ---
CM FINALIZED DISCHARGE PLAN: Patient is returning to Assisted Living Facility today of [facility]. Contacted the child care center administrator Chanel moreno visited with her about transport. Went to the room et nursing reports he's already been picked up by the transition manager of [facility]. He is on continuous oxygen prior to this hospitalization. No needs or interventions noted. Patient has already left the hospital.
--- NOTE | 2019-05-01 15:47 | Discharge Summary ---
Discharge Summary Hospital Course Problems/Dx: (1) Acute on chronic respiratory failure Status: Acute (2) Acute on chronic renal insufficiency Status: Acute (3) IDDM (insulin dependent diabetes mellitus) Status: Chronic (4) Bronchitis Status: Acute (5) Hypertension Status: Chronic Qualifiers: Qualified Codes: I10 - Essential (primary) hypertension (6) Weakness generalized Status: Acute (7) COPD (chronic obstructive pulmonary disease) Status: Acute Qualifiers: Qualified Codes: J44.1 - Chronic obstructive pulmonary disease with (acute) exacerbation Hospital Course Date of Admission: Apr 28, 2019 at 20:00 Admission Diagnosis : COPD with acute exacerbation Family Physician/Provider: Verena Lance MD Date of Discharge: 05/01/19 Discharge Diagnosis: COPD with acute exacerbation Hospital Course: Dick Ann is a 73-year-old male who presented with shortness of breath and was admitted with an acute exacerbation of COPD. He was treated with steroids and nebulizers and improved. He was also treated with antibiotics for an acute bronchitis. He was given a short course of Omnicef to complete as an outpatient. His other chronic medical conditions remained stable. He was discharged back to his assisted living facility and should follow-up with his primary care physician. Labs and Pending Lab Test: Laboratory Tests 04/30/19 16:02: Glucometer 342H 04/30/19 20:00: Glucometer 359H 05/01/19 05:23: White Blood Count 13.1H, Red Blood Count 5.14, Hemoglobin 15.3, Hematocrit 46, Mean Corpuscular Volume 89, Mean Corpuscular Hemoglobin 30, Mean Corpuscular Hemoglobin Concent 34, Red Cell Distribution Width 13.6, Platelet Count 147, Mean Platelet Volume 11.7H, Neutrophils (%) (Auto) 93H, Lymphocytes (%) (Auto) 5L, Monocytes (%) (Auto) 2, Eosinophils (%) (Auto) 0, Basophils (%) (Auto) 0, Neutrophils # (Auto) 12.2H, Lymphocytes # (Auto) 0.7L, Monocytes # (Auto) 0.3, Eosinophils # (Auto) 0.0, Basophils # (Auto) 0.0, Sodium Level 131L, Potassium Level 4.7, Chloride Level 92L, Carbon Dioxide Level 23, Anion Gap 16H, Blood Urea Nitrogen 30H, Creatinine 1.77H, Estimat Glomerular Filtration Rate 38, BUN/Creatinine Ratio 17, Glucose Level 432*H, Calcium Level 9.2, Corrected Calcium 9.4, Total Bilirubin 0.5, Aspartate Amino Transf (AST/SGOT) 22, Alanine Aminotransferase (ALT/SGPT) 29, Alkaline Phosphatase 69, Total Protein 7.1, Albumin 3.8 05/01/19 05:45: Glucometer 360H Microbiology 04/28/19 MRSA Screen - Final, Complete MRSA not isolated 04/28/19 Urine Culture - Final, Complete Staphylococcus epidermidis Corynebacterium striatum 04/28/19 Blood Culture - Preliminary, Resulted No growth Home Meds Active Cefdinir 300 Mg Capsule 300 Mg PO BID 4 Days Prednisone 20 Mg Tab 40 Mg PO DAILY@0700 3 Days Reported Novolog Flexpen (Insulin Aspart) 300 Units/3 Ml Solution SQ TIDAC USE PER SLIDING SCALE: 151-200=2 UNITS 201-250=4 UNITS 251-300=6 UNITS 301-350=8 UNITS 351-400=10 UNITS Isosorbide Mononitrate ER (Isosorbide Mononitrate) 30 Mg Tab.er.24h 30 Mg PO DAILY Ibuprofen 800 Mg Tablet 800 Mg PO Q8H PRN Aspirin EC (Aspirin) 81 Mg Tablet.dr 81 Mg PO DAILY Urecholine (Bethanechol Chloride) 50 Mg Tablet 50 Mg PO QIDACHS Potassium Chloride 20 Meq Tablet.er 20 Meq PO DAILY TAKE WITH FUROSEMIDE Spiriva Respimat 2.5MCG/ACTUATION (Tiotropium [place]) 4 Gm Mist.inhal 2 Puff IH DAILY Nystatin 15 Gm Cream..g. 1 Applic TP TID Ascorbic Acid 500 Mg Tablet 1,500 Mg PO DAILY Furosemide 20 Mg Tablet 20 Mg PO DAILY Zocor (Simvastatin) 10 Mg Tablet 10 Mg PO HS Wellbutrin Xl (Bupropion HCl) 300 Mg Tab.er.24h 300 Mg PO DAILY Tylenol (Acetaminophen) 325 Mg Tablet 650 Mg PO Q4H PRN TAKES 2 (325MG) TABS Ventolin Hfa (Albuterol Sulfate) 1 Puff Puff 2 Puff IH Q6H PRN Amlodipine Besylate 10 Mg Tablet 10 Mg PO DAILY Metoprolol Succinate 50 Mg Tab.er.24h 50 Mg PO BID Trazodone HCl 150 Mg Tablet 150 Mg PO HS Risperidone 2 Mg Tablet 2 Mg PO DAILY Losartan Potassium 100 Mg Tablet 100 Mg PO DAILY Docusate Sodium 100 Mg Capsule 100 Mg PO BID Citalopram HBr (Citalopram Hydrobromide) 20 Mg Tablet 20 Mg PO DAILY Pantoprazole Sodium 40 Mg Tablet.dr 40 Mg PO DAILY Lantus Solostar (Insulin Glargine,Hum.rec.anlog) 100 Unit/1 Ml Insuln.pen 48 Units SQ HS Assessment/Pt Instructions Take medications as prescribed. Completely her course of antibiotics even if you're feeling better. Return with fevers, trouble breathing, chest pain, or if you feel like you're getting worse. Follow up with her primary care physician. Discharge Planning: <30 minutes discharge planning Discharge Instructions Discharge Diet: ADA Diet Activity as Tolerated: Yes Discharge Physical Examination Vital Signs Vital Signs Date Time Temp Pulse Resp B/P (MAP) Pulse Ox O2 Delivery O2 Flow Rate FiO2 05/01/19 11:34 05/01/19 11:02 94 Nasal Cannula 4.00 05/01/19 08:00 37.1 82 22 General Appearance: No Apparent Distress, WD/WN, Obese HEENT: PERRL/EOMI, Pharynx Normal Respiratory: Lungs Clear, Normal Breath Sounds, No Respiratory Distress Cardiovascular: Regular Rate, Rhythm, No Edema, No Murmur Gastrointestinal: Normal Bowel Sounds, Non Tender, Soft Extremity: Normal Inspection, Non Tender, No Pedal Edema Skin: Normal Color, Warm/Dry Neurologic/Psychiatric: Alert, No Motor/Sensory Deficits, Normal Mood/Affect Allergies: Coded Allergies: Penicillins (Unverified Allergy, Mild, HIVES, 09/19/08) duloxetine HCl (Verified Allergy, Mild, 08/20/11) Copy Copies To 1: VERENA LANCE MD Discharge Summary Date of Admission Apr 28, 2019 at 20:00 Date of Discharge May 01, 2019 at 11:43 Discharge Date: May 01, 2019 Discharge Time: 11:43 Admission Diagnosis Acute exacerbation of COPD Discharge Diagnosis Acute exacerbation of COPD (1) Acute on chronic respiratory failure Status: Acute (2) Acute on chronic renal insufficiency Status: Acute (3) IDDM (insulin dependent diabetes mellitus) Status: Chronic (4) Bronchitis Status: Acute (5) Hypertension Status: Chronic Qualifiers: Qualified Codes: I10 - Essential (primary) hypertension (6) Weakness generalized Status: Acute (7) COPD (chronic obstructive pulmonary disease) Status: Acute Qualifiers: Qualified Codes: J44.1 - Chronic obstructive pulmonary disease with (acute) exacerbation Clinical Quality Measures DVT/VTE Risk/Contraindication: Risk Factor Score Per Nursin RFS Level Per Nursing on Admit: 4+=Very High SAMI LAM MD May 01, 2019 15:47
== END 2019-05-01 11:43 | disposition home or self-care (01) | DRG 190 ==
LOC: EDUNIT# 18:24 → ER 18:25 → ICU 20:00 → 4TH 04-29 12:12
PROVIDERS: ADMIT Internal Medicine; ATTEND Internal Medicine
DX: J44.1 Chronic obstructive pulmonary disease with (acute) exacerbation (principal); J96.20 Acute and chronic respiratory failure, unspecified whether with hypoxia or hypercapnia; J44.0 Chronic obstructive pulmonary disease with (acute) lower respiratory infection; J20.9 Acute bronchitis, unspecified; N18.9 Chronic kidney disease, unspecified; I12.9 Hypertensive chronic kidney disease with stage 1 through stage 4 chronic kidney disease, or unspecified chronic kidney disease; E11.22 Type 2 diabetes mellitus with diabetic chronic kidney disease; E78.00 Pure hypercholesterolemia, unspecified; I25.10 Atherosclerotic heart disease of native coronary artery without angina pectoris; F32.9 Major depressive disorder, single episode, unspecified; F41.9 Anxiety disorder, unspecified; K21.9 Gastro-esophageal reflux disease without esophagitis; F03.90 Unspecified dementia, unspecified severity, without behavioral disturbance, psychotic disturbance, mood disturbance, and anxiety; N40.0 Benign prostatic hyperplasia without lower urinary tract symptoms; M54.9 Dorsalgia, unspecified; G89.29 Other chronic pain; E11.40 Type 2 diabetes mellitus with diabetic neuropathy, unspecified; E66.9 Obesity, unspecified; Z68.38 Body mass index [BMI] 38.0-38.9, adult; Z87.891 Personal history of nicotine dependence; Z99.81 Dependence on supplemental oxygen; E87.5 Hyperkalemia
CPT/HCPCS: 36415; 71045; 80053; 81000; 82805; 82962; 83605; 83735; 83880; 84100; 84484; 85007; 85025; 85027; 85610; 85730; 87040; 87077; 87081; 87088; 87804; 93005; 94640; 94644; 94760; 96361; 96374; 96375

== ENCOUNTER → 2019-07-10 | Outpatient (CLI) | payer MEDICARE, MEDICAID ==
[~2019-07-10] MED LIST changes: +ASCO500T7 PO; +BETH50TA9 PO; -BUPR300T51 PO; +BUPR300T98 PO; +IBUP-1780 PO; +INSU100I14 SQ; +INSU100V31 IJ; +ISOS30TA3 PO; -METO-370 PO; -METO-395 PO; +METO50TA7 PO; +MTP100TCR PO; +NYST15CR TP; +POTA-51 PO; +PRD20T PO; +SIMV10TA26 PO; -TAMS0.4C98 PO; +TIOT4MIS2 IH
--- NOTE | 2019-07-10 10:27 | Diagnostic Imaging Report ---
PA and lateral chest at 948 hours. INDICATION: Cough. FINDINGS: The heart size is within normal limits and the heart does seem less prominent than noted on the prior exam of 04/29/2019. There are areas of slightly increased density in the right lower lobe and the left retrocardiac region which may well be secondary to mild pneumonia/atelectasis. There is no pleural effusion identified and the lungs are otherwise clear. The mediastinum is not widened. The osseous structures are intact. IMPRESSION: 1. The findings do suggest that there is mild bibasilar pneumonia/atelectasis. A follow-up exam would be recommended for continued evaluation. 2. These results were called to Dr. Alcantara's office. Dictated by: Dictated on workstation # [id number]
== END ==
LOC: RAD 09:28
PROVIDERS: ATTEND Internal Medicine
DX: J44.9 Chronic obstructive pulmonary disease, unspecified (principal)
CPT/HCPCS: 71046

== ENCOUNTER → 2019-07-21 | Outpatient (CLI) | payer MEDICARE, MEDICAID ==
--- NOTE | 2019-07-21 12:18 | Diagnostic Imaging Report ---
INDICATION: Pneumonia PA and lateral views of the chest are obtained. Comparison is made to study of 07/10/2019. Heart size and pulmonary vascularity are within normal limits. Bilateral perihilar and basilar airspace disease has not significantly changed. There is no pneumothorax or significant pleural fluid. IMPRESSION: Bilateral airspace disease which may represent pneumonitis or pneumonia. Findings have not significantly changed. Dictated by: Dictated on workstation # [id number]
== END ==
LOC: RAD 11:17
PROVIDERS: ATTEND Nurse Practitioner
DX: J18.9 Pneumonia, unspecified organism (principal)
CPT/HCPCS: 71046

== ENCOUNTER 2019-07-28 05:14 | Emergency (ER) | payer MEDICARE, MEDICAID ==
[~2019-07-28] VITALS: Ht 175 cm; Wt 116.0 kg
--- OUTSIDE RECORDS SUMMARY | 2019-07-28 05:20 | XMS REPORT ---
Author Author [facility] Organization [facility] Address [address] [place] [id number] Care Team Providers Care Licensed Investment Sales Assistant Name Role Phone VERENA LANCE Unavailable JOANNA ANDREW MD Unavailable Unavailable VERENA LANCE MD Unavailable Unavailable VERENA LANCE MD Unavailable Unavailable JOHAN LAROSE MD Unavailable Unavailable ALFRED BELL MD Unavailable Unavailable TREVOR MCCABE DO Unavailable Unavailable ALFRED BELL MD Unavailable Unavailable JOSE C WOODSON DOA K Unavailable Unavailable NAM MCCLAIN MD Unavailable Unavailable NAM MCCLAIN MD Unavailable Unavailable ANNIE MOY MD Unavailable Unavailable SILAS MURPHY MD Unavailable Unavailable VANESSA CARRERA Unavailable Unavailab JANESSA Woods MD Unavailable Unavailable VANNESSA MORRIS Unavailable Unavailable JANESSA ROWAN MD Unavailable Unavailable JANESSA ROWAN MD Unavailable Unavailable ANANDA BLAS MD Unavailable Unavailable ALEENA LANCE MD Unavailable Unavailable KANDICE DO, AMANDA K Unavailable Unavailable VERENA LANCE MD Unavailable Unavailable TREVOR MCCABE DO Unavailable Unavailable VANESSA CARRERA Unavailable Unavailab JOANNA Piper MD Unavailable Unavailable JOHAN LAROSE MD Unavailable Unavailable SILAS MURPHY MD Unavailable Unavailable NAM MCCLAIN MD Unavailable Unavailable NAM MCCLAIN MD Unavailable Unavailable JANESSA SMITH MD Unavailable Unavailable JANESSA ROWAN MD Unavailable Unavailable JANESSA ROWAN MD Unavailable Unavailable VANNESSA MORRIS Unavailable Unavailable COLUNGA DO, CARLOS S Unavailable Unavailable COLUNGA , CARLOS S Unavailable Unavailable VERENA LANCE MD Unavailable Unavailable ANANDA BLAS MD Unavailable Unavailable ALFRED BELL MD Unavailable Unavailable ALFRED BELL MD Unavailable Unavailable ALEENA LANCE MD Unavailable Unavailable Allergies No Information Medications No Information Problems Active Problems Problem Normalized Date of Normalized Normalized Provider Fac ility Classification Problem(s) Problem Problem Problem Sta tus Onset/Resoluti Duration on Residual Acquired Episodic Active AMANDA KANDICE , DO [facility] Via codes; absence of Jillian miles other genital Hospital - (10 sources.) organ(s) [place] ([address]) Residual Acquired Episodic Active VERENA CASI [facility] Via codes; absence of MD [facility] unclassified other Hospital - (4 sources.) specified [place] parts of (79878) digestive tract Acute Acute Episodic Active JANESSA ROWAN [facility] Via bronchitis (16 bronchitis, MD Walsh sources.) unspecified Hospital - [place] (45110) Anxiety Anxiety state, Chronic Active VERENA LANCE , Not Available disorders (9 unspecified MD (38509) sources.) Translations: [ ANXIETY DISORDER, UNSPECIFIED] Coronary Atheroscleroti Chronic Active VERENA LANCE , Not Available atherosclerosi c heart () s and other disease of heart disease [place] (21 sources.) coronary artery without angina pectoris Translations: [ CORONARY ATHEROSCLEROSI S OF [place] CORON, CORON ATHEROSCLER NOS TYPE VESSEL, NATIV, CORONARY ATHEROSCLEROSI S DUE TO [place], ATHSCL HEART DISEASE OF [place] CORONARY , ATHSCL HEART DISEASE OF [place] CORONARY ] Coronary Atheroscleroti no information Active JOHAN LAROSE , Not Available atherosclerosi c heart () s and other disease of heart disease [place] (25 sources.) coronary artery without angina pectoris Translations: [ PRESENCE OF CORONARY ANGIOPLASTY IMPLANT, ATHSCL HEART DISEASE OF [place] CORONARY , PRESENCE OF CORONARY ANGIOPLASTY IMPLANT, ATHSCL HEART DISEASE OF [place] CORONARY ] Conduction Atrioventricul Chronic Active ALEENA LANCE , N ot Available disorders (24 ar block, (68984) sources.) first degree Translations: [ UNSPECIFIED RIGHT BUNDLE-BRANCH BLOCK, LEFT ANTERIOR FASCICULAR BLOCK, UNSPECIFIED RIGHT BUNDLE-BRANCH BLOCK, LEFT ANTERIOR FASCICULAR BLOCK] Hyperplasia of Benign Chronic Active JOHAN LAROSE , Not Available prostate (23 prostatic (87777) sources.) hyperplasia with lower urinary tract symptoms Translations: [ BENIGN PROSTATIC HYPERPLASIA WITHOUT LOW] Other Body mass Chronic Active VERENA LANCE [facility] Via nutritional; index (BMI) MD [facility] endocrine; and 34.0-34.9, Hospital - metabolic adult [place] disorders (10 (32595) sources.) Other Body mass Chronic Active CARLOS COLUNGA [facility] Via nutritional; index (BMI) DO [facility] endocrine; and 38.0-38.9, Hospital - metabolic adult [place] disorders (4 (91803) sources.) Unclassified Body Mass no information Active VERENA LANCE , Not Available (28 sources.) Index (38262) 36.0-36.9, adult Translations: [ OBSTRUCTIVE SLEEP APNEA (ADULT) (PEDIATR, ALTERED MENTAL STATUS, SLEEP APNEA, UNSPECIFIED, BODY MASS INDEX (BMI) 34.0-34.9, ADULT] Other Body Mass Chronic Active VERENA LANCE , [facility] Via nutritional; Index MD [facility] endocrine; and 36.0-36.9, Hospital - metabolic adult [place] disorders (6 (56672) sources.) Other Body Mass Chronic Active VERENA LANCE , Not Avai lable nutritional; Index MD (26885) endocrine; and 40.0-44.9, metabolic adult disorders (5 sources.) Other and Cardiomegaly Chronic Active JOANNA [facility] Via ill-defined MD KAMRAN [facility] - (9 sources.) [place] (915[address]) Other and Cardiomegaly Chronic Active VERENA LANCE , Not A vailable ill-defined () heart disease (5 sources.) Respiratory Chronic Chronic Active VERENA LANCE , Not [place] ilable failure; respiratory () insufficiency; failure arrest (adult) Translations: (25 sources.) [ CHRONIC RESPIRATORY FAILURE WITH HYPOXIA, DEPENDENCE ON SUPPLEMENTAL OXYGEN, ACUTE AND CHRONIC RESPIRATORY FAILURE WI, DEPENDENCE ON SUPPLEMENTAL OXYGEN, ACUTE AND CHR RESP FAILURE, UNSP W HYPOX] Mood disorders Depressive Chronic Active VERENA LANCE , No t Available (20 sources.) disorder, not (04706) elsewhere classified Translations: [ MAJOR DEPRESSIVE DISORDER, SINGLE EPISOD] Diabetes Diabetes Chronic Active JOANNA Not Available mellitus with mellitus MD KAMRAN () complications without (20 sources.) mention of complication, type II or unspecified type, uncontrolled Translations: [ TYPE 2 DIABETES MELLITUS W DIABETIC SEQUINS STRINGER, TYPE 2 DIABETES MELLITUS WITH DIABETIC N] Allergic Diarrhea Episodic Active VERENA LANCE , Not Avail able reactions (13 Translations: () sources.) [ ALLERGY STATUS TO OTH DRUG/MEDS/BIOL SUB, ALLERGY STATUS TO PENICILLIN] Diverticulosis Diverticulosis Chronic Active ANNIE FOWLERENO Not Available and of colon , () diverticulitis (without (9 sources.) mention of hemorrhage) Translations: [ DVRTCLOS OF LG INT W/O PERFORATION OR AB] Spondylosis; Dorsalgia, Episodic Active CARLOS COLUNGA [facility] Via intervertebral unspecified DO Jillian disc Hospital - disorders; [place] other back (41683) problems (4 sources.) Residual Family history Episodic Active AMANDA KANDICE , DO [facility] Via codes; of ischemic Jillian unclassified heart disease Hospital - (4 sources.) and other [place] diseases of (94344) the circulatory system Other liver Fatty (change Chronic Active VERENA LANCE [facility] Via diseases (4 of) liver, not MD Walsh sources.) elsewhere Hospital - classified [place] (51053) Esophageal Gastro-esophag Chronic Active ALFRED BELL No t Available disorders (23 eal reflux , (03114) sources.) disease without esophagitis Translations: [ ESOPHAGEAL REFLUX] Congestive Heart failure, Chronic Active AMANDASherine WOODSON , DO N ot Available heart failure; unspecified (84132) nonhypertensiv Translations: e (16 [ CONGESTIVE sources.) HEART FAILURE NOS] Hypertension Hypertensive Chronic Active VERENA LANCE , No t Available with chronic kidney (26653) complications disease, and secondary unspecified, hypertension with chronic (25 sources.) kidney disease stage I through stage IV, or unspecified Translations: [ HYPERTENSIVE CHRONIC KIDNEY DISEASE W ST] Nonmalignant Hypertrophy of Episodic Active VERENA LANCE [facility] Via breast breast MD Walsh conditions (4 Hospital - sources.) [place] (06443) Other Hypomagnesemia Chronic Active VERENA LANCE [facility] Via nutritional; MD [facility] endocrine; and Hospital - metabolic [place] disorders (11 (10533) sources.) Other Irritable Chronic Active VERENA LANCE , 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 (20892) al disorders (11 sources.) Diseases of Leukocytosis, Chronic Active VERENA LANCE [facility] Via white blood unspecified MD [facility] cells (7 Hospital - sources.) [place] (76071) Other assisted Episodic Active JOANNA Not Availabl e aftercare (22 (current) use MD KAMRAN (66690) sources.) of insulin Other assisted Episodic Active AMANDASherine WOODSON , DO [facility] Via aftercare (4 (current) use Jillian sources.) of systemic Hospital - steroids [place] (08281) 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, so MD [facility] degenerative stated Hospital - nervous system [place] conditions (8 (86401) sources.) Heart valve Mitral valve Chronic Active VERENA LANCE , Not Available disorders (5 disorders () sources.) Disorders of Mixed Chronic Active VERENA LANCE , Not Av ailable lipid hyperlipidemia () metabolism (23 Translations: sources.) [ HYPERLIPIDEMIA , UNSPECIFIED, HYPERLIPIDEMIA NEC/NOS, PURE HYPERCHOLESTER OLEMIA, UNSPECIFIED] Other Morbid Chronic Active VERENA LANCE , [facility] Via nutritional; (severe) MD [facility] endocrine; and obesity due to Hospital - metabolic excess [place] disorders (11 calories () sources.) Other Morbid obesity Chronic Active VERENA LANCE , [facility] Via nutritional; MD [facility] endocrine; and Hospital - metabolic [place] disorders (7 (72343) sources.) Other diseases Neuromuscular Chronic Active JOHAN LAROSE , [facility] Via of bladder and dysfunction of MD Walsh urethra (20 bladder, Hospital - sources.) unspecified [place] (88845) Substance-rela Nicotine Chronic Active JOANNA Not Avai lable armando disorders dependence, MD KAMRAN () (24 sources.) cigarettes, uncomplicated Translations: [ NICOTINE DEPENDENCE, UNSPECIFIED, UNCOMP] Thyroid Nontoxic Chronic Active VERENA LANCE , [facility] Via disorders (7 single thyroid MD Walsh sources.) nodule Hospital - [place] (57672) Other Obesity, Chronic Active VERENA LANEC , Not Avail able nutritional; unspecified () endocrine; and metabolic disorders (5 sources.) Other Obesity, Chronic Active CARLOS COLUNGA , [facility] Via nutritional; unspecified DO Jillian endocrine; and Hospital - metabolic [place] disorders (4 (79768) sources.) Unclassified Obstructive Chronic Active VERENA LANCE , Not Available (23 sources.) sleep apnea (86575) (adult) (pediatric) Translations: [ OBSTRUCTIVE SLEEP APNEA (ADULT) (PEDIATR] Residual Obstructive Chronic Active VERENA LANCE , Not Av ailable codes; sleep apnea (61511) unclassified (adult)(pediat (12 sources.) nii) Occlusion or Occlusion and Chronic Active VANESSA Not A vailable stenosis of stenosis of RODRÍGUEZ-ANDERSO (43962) precerebral multiple and N , [place] arteries (17 bilateral sources.) precerebral arteries without mention of cerebral infarction Translations: [ CAROTID ARTERY OCCLUSION W O CEREBRAL IN, CAROTID ARTERY OCCLUSION W O CEREBRAL IN] Other liver Other chronic Chronic Active VERENA LANCE , No t Available diseases (12 nonalcoholic (45706) sources.) liver disease Other nervous Other chronic Chronic Active CARLOS COLUNGA [facility] Via system pain DO Jillian disorders (4 Hospital - sources.) [place] (30835) Other diseases Other Chronic Active ELMER MUÑIZ Via of kidney and disorders MD [facility] ureters (11 resulting from Hospital - sources.) impaired renal [place] tubular (00528) function Genitourinary Other Episodic Active TREVOR MCCABE Not Available symptoms and retention of , DO (23775) ill-defined urine conditions (24 Translations: sources.) [ HEMATURIA, UNSPECIFIED, RETENTION OF URINE, UNSPECIFIED, PERSONAL HISTORY OTH SPEC URINARY SYSTEM, RETENTION OF URINE NOS, PERSONAL HISTORY OF URINARY (TRACT) INFE] Other upper Other seasonal Chronic Active JANESSA ROWAN , [facility] Via respiratory allergic MD [facility] disease (7 rhinitis Hospital - sources.) [place] (02460) Other diseases Other Chronic Active JOHAN LAROSE , [facility] Via of bladder and specified MD [facility] urethra (4 disorders of Hospital - sources.) bladder [place] (84311) Other bone Other Episodic Active VERENA LANCE [facility] Via disease and specified MD [facility] musculoskeleta disorders of Hospital - l deformities bone, [place] (4 sources.) unspecified (73030) site Residual Patient's Episodic Active AMANDASherine WOODSON DO [facility] Via codes; noncompliance Jillian unclassified with other Hospital - (4 sources.) medical [place] treatment and (33272) regimen Other injuries Personal Episodic Active ELMER MUÑIZ Via and conditions history of MD [facility] due to (healed) Hospital - external traumatic [place] causes (2 fracture (49594) sources.) Other Personal Episodic Active AMANDA WOODSON DO [facility] Via gastrointestin history of Jillian al disorders other diseases Hospital - (4 sources.) of the [place] digestive (89875) system Other lower Personal Episodic Active AMANDA WOODSON DO [facility] Vi a respiratory history of Jillian disease (4 pneumonia Hospital - sources.) (recurrent) [place] (75642) Screening and Personal Episodic Active VERENA LANCE , Not A vailable history of history of (35846) mental health tobacco use and substance Translations: abuse codes [ PERSONAL (21 sources.) HISTORY OF NICOTINE DEPENDENCE] Genitourinary Presence of Chronic Active [facility] Karolina HERNANDEZ Via symptoms and urogenital MD [facility] ill-defined implants Hospital - conditions (17 Translations: [place] sources.) [ UNSPECIFIED (12376) URINARY INCONTINENCE] Other lower Pulmonary Chronic Active ELMER DOWNS V ia respiratory fibrosis, MD [facility] disease (7 unspecified Hospital - sources.) [place] (54552) Other lower Shortness of Episodic Active VANNESSA SALINASE Not [place] ilable respiratory breath (11811) disease (20 sources.) Residual Sleep apnea, Chronic Active ELMER MUÑIZ V ia codes; unspecified MD [facility] unclassified Hospital - (6 sources.) [place] (84497) Diabetes Type 2 Chronic Active VERENA LANCE , Not Avail able mellitus diabetes (55276) without mellitus complication without (20 sources.) complications Translations: [ DIAB SPIKE WO COMPL, TYPE II OR UNSPEC TY] Delirium Unspecified Chronic Active AMANDA WOODSON DO [facility] V ia dementia and linh Walsh amnestic and without Hospital - other behavioral [place] cognitive disturbance (13945) disorders (16 sources.) Other diseases Unspecified Episodic Active JOHAN LAROSE [facility] Via of kidney and hydronephrosis MD Walsh ureters (18 Hospital - sources.) [place] (73881) Osteoarthritis Unspecified Chronic Active ELMER OMALLEY Via (15 sources.) osteoarthritis MD Walsh , unspecified Hospital - site [place] (17569) Past or Other Problems Problem Normalized Date of Normalized Normalized Provider Fac ility Classification Problem(s) Problem Problem Problem Sta tus Onset/Resoluti Duration on Abdominal pain Abdominal Episodic Completed AMANDA WOODSON , DO No t Available (12 sources.) pain, right (39135) upper quadrant Residual Altered mental Episodic Completed ELMER MUÑIZ Via codes; status MD [facility] unclassified Hospital - (6 sources.) [place] (18601) Nutritional Cachexia Episodic Completed ELMER OMALLEY Vi a deficiencies MD Walsh (7 sources.) Hospital - [place] (10151) Other Diarrhea, Episodic Completed ELMER OMALLEY Via gastrointestin unspecified MD Walsh al disorders Hospital - (7 sources.) [place] (18480) Other diseases Disorder of Episodic Completed VERENA LANCE [facility] Via of kidney and kidney and MD [facility] ureterfabiana (15 ureter, Hospital - sources.) unspecified [place] (64455) Residual Edema Episodic Completed AMANDA WOODSON DO Not Avai lable codes; (83769) unclassified (17 sources.) Immunizations Encounter for Episodic Completed JOHAN LAROSE [facility] Via and screening screening for MD [facility] for infectious other Hospital - disease (7 bacterial [place] sources.) diseases (60807) Other Erythema Episodic Completed ELMER MUÑIZ Via inflammatory intertrigo MD [facility] condition of Hospital - skin (11 [place] sources.) (92285) Adverse Fever, Episodic Completed PERLA LOWERY Not Avail able effects of unspecified , (24650) medical drugs (2 sources.) Other Fracture of Episodic Completed ELMER DOWNS V ia fractures (7 one rib, left MD Walsh sources.) side, Hospital - subsequent [place] encounter for (22457) fracture with nonunion Other injuries History of Episodic Completed [facility]ED [facility]LL [facility] Via and conditions falling , MD [facility] due to Hospital - external [place] causes (12 (33402) sources.) Other lower Hypoxemia Episodic Completed ELMER MUÑIZ Vi a respiratory MD [facility] disease (7 Hospital - sources.) [place] (30287) Other lower Hypoxemia Episodic Completed JANESSA ROWAN [facility] V ia respiratory MD [facility] disease (7 Hospital - sources.) [place] (11200) Residual Localized Episodic Completed AMANDA WOODSON DO [facility] Via codes; edema Jillian unclassified Translations: Hospital - (8 sources.) [ ACQUIRED [place] ABSENCE OF (76127) 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 Completed JOANNA Not Availabl e aftercare (26 (current) use MD KAMRAN () sources.) of aspirin Other Long-term Episodic Completed PERLA LOWERY Not Avai lable aftercare (4 (current) use MD () sources.) of aspirin Other Long-term Episodic Completed ELMER MUÑIZ Via aftercare (7 (current) use MD Walsh sources.) of insulin Hospital - [place] (96890) Other Long-term Episodic Completed PERLA LOWERY Not Avai lable aftercare (10 (current) use MD () sources.) of other medications Mood disorders Major no information no information JANESSA GARY SON , Not Available (21 sources.) depressive () disorder, single episode, unspecified Unclassified 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 Hospital - (7 sources.) [place] () External cause Other external no information no information JYOTI OTHY Not Available codes: cause status MD KAMRAN (42103) Unspecified (2 sources.) Other Other long Episodic Completed JOANNA Not Availab le aftercare (22 term (current) MD KAMRAN () sources.) drug therapy Residual Other no information no information AMANDA WOODSON DO [facility] Via codes; specified [facility] unclassified postprocedural Hospital - (1 source.) states [place] () Residual Other Episodic Completed AMANDASherine WOODSON DO [facility] Via codes; specified [facility] unclassified postprocedural Hospital - (3 sources.) [facility] [address] () Other lower Painful Episodic Completed JOANNA [facility] Via respiratory respiration MD KAMRAN [facility] disease (6 Hospital - sources.) [place] () Coronary Presence of Episodic Completed JANESSA SMITH , Not A vailable atherosclerosi coronary () s and other angioplasty heart disease implant and (28 sources.) graft Other Rhabdomyolysis Episodic Completed VERENA LANCE [facility] Via connective [facility] - (11 sources.) [place] () Septicemia (16 Sepsis, no information no information VERENA GA OR , Not Available sources.) unspecified () organism Residual Sleep apnea, no information no information AMANDASherine WOODSON DO [facility] Via codes; unspecified [facility] Hospital - (1 source.) [place] () Unclassified Special Episodic Completed ANNIE MOY Not Av ailable (18 sources.) screening for , () malignant neoplasms of colon Translations: [ ABNORMAL RESULT OF OTHER CARDIOVASCULAR ] Septicemia (12 Streptococcal Episodic Completed VERENA LANCE , Not Available sources.) septicemia () Translations: [ SEPSIS, SEPSIS, UNSPECIFIED ORGANISM] Other Swelling of Episodic Completed VERENA CASI , Not Av ailable connective limb () tissue disease (5 sources.) Other injuries Systemic Episodic Completed ELMER MUÑIZ Via and conditions inflammatory MD [facility] due to response [facility] causes (7 unspecified (38306) sources.) Cardiac Tachycardia, Episodic Completed ELMER MUÑIZ V ia dysrhythmias unspecified MD Walsh (7 sources.) [facility] () Diabetes Type 2 no information no information VERENA LANCE Not Available mellitus with diabetes () complications mellitus with (23 sources.) diabetic neuropathy, unspecified External cause Unspecified no information no information TIMOTH Y Not Available codes: accident MD KAMRAN () Natural/enviro nment (2 sources.) External cause Unspecified no information no information AMANDA R RUY , DO [facility] Via codes: Fall (2 fall, initial Jillian sources.) encounter [facility] () External cause Unspecified Episodic Completed AMANDA KANDICE , DO [facility] Via codes: Fall (4 fall, initial Jillian sources.) encounter [facility] () NEGATED no information no information no information MONCHO BOTELLO Not Available no , (83383) information (2 sources.) Unclassified no information no information no information JESÚS BOTELLO Not Available (1 source.) , () Unclassified no information no information no information JESÚS BOTELLO Not Available (1 source.) , (06907) Unclassified no information no information no information JESÚS BOTELLO Not Available (1 source.) , () Unclassified no information no information no information VERENA LANCE Not Available (3 sources.) () Unclassified no information no information no information ILYA MURPHY Not Available (2 sources.) (18106) Unclassified no information no information no information VERENA LANCE Not Available (4 sources.) (22365) Unclassified no information no information no information VERENA LANCE Not Available (1 source.) (34209) Unclassified no information no information no information VERENA LANCE Not Available (1 source.) (85805) Unclassified no information no information no information VERENA LANCE Not Available (1 source.) (40135) Procedures The data below is from unstructured sourcesNo known history of procedures.No known history of procedures.No known history of procedures.No known history of procedures.No known history of procedures.No kn own history of procedures.No known history of procedures. Immunizations The data below is from unstructured sourcesNo immunization records.No immunization records.No immunization records. Results No Information Vital Signs The data below is from unstructured sources Vital Response Date/Time Temperature (Fahrenheit) 97.1 degree s F (97.6 - 99.5) 12/08/2015 6:00am Temperature (Calculated Celsius) 36. 69411 degrees C (36.4 - 37.5) 12/08/2015 6:00am Temperature Source Tympanic 12/08/2015 6:00am Pulse Rate (adult) 72 bpm (60 - 90) 12/08/2015 7:44am Respiratory Rate 18 bpm (12 - 24) 12/08/2015 6:00am O2 Sat by Pulse Oximetry 93 % (88 - 100) 12/08/2015 9:33am Blood Pressure 127/82 mm Hg 12/08/2015 6:00am Blood Pressure Mean 97 mm Hg 12/08/2015 6:00am Pain Numeric Pain Scale 0-No Pain 12/08/2015 6:00am Height (Feet) 5 feet 11:00pm Height (Inches) 9.00 inches 12/03/2015 11:00pm Height (Calculated Centimeters) 175. 509805 cm 12/03/2015 11:00pm Weight (Pounds) 230 pounds 12/03/2015 11:16pm Weight (Ounces) 3.0 oz 0 12/03/2015 11:16pm Weight (Calculated Grams) 209810.295 gm 12/03/2015 11:16pm Weight (Calculated Kilograms) 104.41 1295 kilograms 12/03/2015 11:16pm Calculated BMI 34.0 11/05 11:00pm Capillary Refill Capillary Refill Less Than 3 Seconds 12/07/2015 8:00pm Vital Response Date/Time Temperature (Fahrenheit) 100.3 degre es F (97.6 - 99.5) 03/20/2016 2:17pm Temperature (Calculated Celsius) 37. 84847 degrees C (36.4 - 37.5) 03/20/2016 2:17pm Temperature Source Tympanic 03/20/2016 2:17pm Pulse Rate (adult) 89 bpm (60 - 90) 03/20/2016 2:17pm Respiratory Rate 24 bpm (12 - 24) 03/20/2016 2:17pm O2 Sat by Pulse Oximetry 91 % (88 - 100) 03/20/2016 2:17pm Blood Pressure 137/72 mm Hg 03/20/2016 2:17pm Blood Pressure Mean 93 mm Hg 03/20/2016 2:17pm Pain Numeric Pain Scale 0-No Pain 03/20/2016 2:17pm Height (Feet) 5 feet 2:17pm Height (Inches) 9 inches 03/20/2016 2:17pm Height (Calculated Centimeters) 175. 010324 cm 03/20/2016 2:17pm Weight (Pounds) 249 pounds 03/20/2016 2:17pm Weight (Ounces) 0.0 oz 1 05/13/2015 8:26am Weight (Calculated Grams) 095740.50 gm 03/13/2016 8:26am Weight (Calculated Kilograms) 112.94 4501 kilograms 03/20/2016 2:17pm Calculated BMI 36.8 11/2015 8:26am Capillary Refill Capillary Refill Less Than 3 Seconds 03/20/2016 2:17pm Vital Response Date/Time Temperature (Fahrenheit) 97.7 degree s F (97.6 - 99.5) 03/23/2016 8:06am Temperature (Calculated Celsius) 36. 86340 degrees C (36.4 - 37.5) 03/23/2016 8:06am Temperature Source Tympanic 03/23/2016 8:06am Pulse Rate (adult) 87 bpm (60 - 90) 03/23/2016 8:06am Respiratory Rate 18 bpm (12 - 24) 03/23/2016 8:06am O2 Sat by Pulse Oximetry 96 % (88 - 100) 03/23/2016 8:06am Blood Pressure 188/88 mm Hg 03/23/2016 8:06am Blood Pressure Mean 121 mm Hg 03/23/2016 8:06am Pain Numeric Pain Scale 0-No Pain 03/23/2016 10:30am Height (Feet) 5 feet 1:06pm Height (Inches) 9.00 inches 03/22/2016 1:06pm Height (Calculated Centimeters) 175. 573996 cm 03/22/2016 1:06pm Weight (Pounds) 240 pounds 03/22/2016 1:06pm Weight (Ounces) 0.0 oz 1 05/22/2015 1:06pm Weight (Calculated Grams) 348006.17 gm 03/22/2016 1:06pm Weight (Calculated Kilograms) 108.86 2170 kilograms 03/22/2016 1:06pm Calculated BMI 35.4 03/07 1:06pm Capillary Refill Capillary Refill Less Than 3 Seconds 03/22/2016 7:00pm Vital Response Date/Time Temperature (Fahrenheit) 98.1 degree s F (97.6 - 99.5) 04/07/2016 8:57pm Temperature (Calculated Celsius) 36. 87939 degrees C (36.4 - 37.5) 04/07/2016 8:57pm Temperature Source Temporal 04/07/2016 8:57pm Pulse Rate (adult) 82 bpm (60 - 90) 04/07/2016 8:57pm Respiratory Rate 18 bpm (12 - 24) 04/07/2016 8:57pm O2 Sat by Pulse Oximetry 96 % (88 - 100) 04/07/2016 8:57pm Blood Pressure 184/94 mm Hg 04/07/2016 8:57pm Blood Pressure Mean 124 mm Hg 04/07/2016 8:57pm Pain Numeric Pain Scale 5-Moderate Pain 04/07/2016 9:17pm Height (Feet) 5 feet 06/2015 8:57pm Height (Inches) 9 inches 04/07/2016 8:57pm Height (Calculated Centimeters) 175. 244398 cm 04/07/2016 8:57pm Weight (Pounds) 240 pounds 04/07/2016 8:57pm Weight (Ounces) 0.0 oz 1 05/22/2015 1:06pm Weight (Calculated Grams) 555871.17 gm 03/22/2016 1:06pm Weight (Calculated Kilograms) 108.86 2170 kilograms 04/07/2016 8:57pm Calculated BMI 35.4 03/07 1:06pm Capillary Refill Capillary Refill Less Than 3 Seconds 04/07/2016 8:57pm Vital Response Date/Time Temperature (Fahrenheit) 98.5 degree s F (97.6 - 99.5) 04/08/2016 6:21pm Temperature (Calculated Celsius) 36. 65116 degrees C (36.4 - 37.5) 04/08/2016 6:21pm Temperature Source Temporal 04/07/2016 8:57pm Pulse Rate (adult) 91 bpm (60 - 90) 04/08/2016 6:21pm Respiratory Rate 20 bpm (12 - 24) 04/08/2016 6:21pm O2 Sat by Pulse Oximetry 92 % (88 - 100) 04/08/2016 6:21pm Blood Pressure 130/90 mm Hg 04/08/2016 6:21pm Blood Pressure Mean 132 mm Hg 04/08/2016 4:00pm Pain Numeric Pain Scale 0-No Pain 04/08/2016 6:21pm Height (Feet) 5 feet 07/2015 4:00pm Height (Inches) 9 inches 04/08/2016 4:00pm Height (Calculated Centimeters) 175. 911879 cm 04/08/2016 4:00pm Weight (Pounds) 240 pounds 04/08/2016 4:00pm Weight (Ounces) 0.0 oz 1 05/22/2015 1:06pm Weight (Calculated Grams) 406167.17 gm 03/22/2016 1:06pm Weight (Calculated Kilograms) 108.86 2170 kilograms 04/08/2016 4:00pm Calculated BMI 35.4 03/07 1:06pm Capillary Refill Capillary Refill Less Than 3 Seconds 04/08/2016 4:00pm Vital Response Date/Time Temperature (Fahrenheit) 97.9 degree s F (97.6 - 99.5) 04/28/2016 4:27am Temperature (Calculated Celsius) 36. 37173 degrees C (36.4 - 37.5) 04/28/2016 4:27am Temperature Source Tympanic 04/28/2016 4:27am Pulse Rate (adult) 69 bpm (60 - 90) 04/28/2016 4:27am Respiratory Rate 20 bpm (12 - 24) 04/28/2016 4:27am O2 Sat by Pulse Oximetry 93 % (88 - 100) 04/28/2016 5:15am Blood Pressure 127/70 mm Hg 04/28/2016 4:27am Blood Pressure Mean 89 mm Hg 04/28/2016 4:27am Pain Numeric Pain Scale 0-No Pain 04/28/2016 4:27am Height (Feet) 5 feet 4:27am Height (Inches) 9 inches 04/28/2016 4:27am Height (Calculated Centimeters) 175. 350365 cm 04/28/2016 4:27am Weight (Pounds) 240 pounds 04/28/2016 4:27am Weight (Ounces) 0.0 oz 1 06/29/2015 4:27am Weight (Calculated Grams) 926348.170 gm 04/28/2016 4:27am Weight (Calculated Kilograms) 108.86 2170 kilograms 04/28/2016 4:27am Calculated BMI 35.4 04/07 4:27am Capillary Refill Capillary Refill Less Than 3 Seconds 04/28/2016 4:27am Vital Response Date/Time Temperature (Fahrenheit) 97.2 degree s F (97.6 - 99.5) 07/26/2016 12:00pm Temperature (Calculated Celsius) 36. 56503 degrees C (36.4 - 37.5) 07/26/2016 12:00pm Temperature Source Tympanic 07/26/2016 12:00pm Pulse Rate (adult) 68 bpm (60 - 90) 07/26/2016 12:00pm Respiratory Rate 18 bpm (12 - 24) 07/26/2016 12:00pm O2 Sat by Pulse Oximetry 98 % (88 - 100) 07/26/2016 12:00pm Blood Pressure 169/89 mm Hg 07/26/2016 12:00pm Blood Pressure Mean 115 mm Hg 07/26/2016 12:00pm Pain Numeric Pain Scale 0-No Pain 07/26/2016 12:00pm Height (Feet) 5 feet 11:06pm Height (Inches) 8.00 inches 07/24/2016 11:06pm Height (Calculated Centimeters) 172. 212401 cm 07/24/2016 11:06pm Weight (Pounds) 256 pounds 07/24/2016 11:06pm Weight (Ounces) 9.0 oz 0 07/24/2016 11:06pm Weight (Calculated Grams) 437689.79 gm 07/24/2016 11:06pm Weight (Calculated Kilograms) 116.37 4794 kilograms 07/24/2016 11:06pm Calculated BMI 39.0 07/06 11:06pm Capillary Refill Capillary Refill Less Than 3 Seconds 07/26/2016 8:30am Vital Response Date/Time Temperature (Fahrenheit) 97.1 degree s F (97.6 - 99.5) 08/25/2016 6:51pm Temperature (Calculated Celsius) 36. 62048 degrees C (36.4 - 37.5) 08/25/2016 6:51pm Temperature Source Tympanic 08/25/2016 6:51pm Pulse Rate (adult) 72 bpm (60 - 90) 08/25/2016 6:51pm Respiratory Rate 16 bpm (12 - 24) 08/25/2016 6:51pm O2 Sat by Pulse Oximetry 97 % (88 - 100) 08/25/2016 6:51pm Blood Pressure 127/70 mm Hg 08/25/2016 6:51pm Blood Pressure Mean 89 mm Hg 08/25/2016 6:51pm Pain Numeric Pain Scale 0-No Pain 07/26/2016 12:00pm Height (Feet) 5 feet 6:51pm Height (Inches) 8.00 inches 08/25/2016 6:51pm Height (Calculated Centimeters) 172. 764454 cm 08/25/2016 6:51pm Weight (Pounds) 256 pounds 08/25/2016 6:51pm Weight (Ounces) 9.0 oz 0 08/25/2016 6:51pm Weight (Calculated Grams) 173281.794 gm 08/25/2016 6:51pm Weight (Calculated Kilograms) 116.37 4794 kilograms 08/25/2016 6:51pm Calculated BMI 39.0 08/06 6:51pm Capillary Refill Capillary Refill Less Than 3 Seconds 08/25/2016 6:51pm Vital Response Date/Time Temperature Source Tympanic 06/11/2015 10:26am Pulse Rate (adult) 79 bpm (60 - 90) 06/11/2015 10:26am Respiratory Rate 16 bpm (12 - 24) 06/11/2015 10:26am O2 Sat by Pulse Oximetry 91 % (88 - 100) 06/11/2015 10:26am Blood Pressure 133/73 mm Hg 06/11/2015 10:26am Blood Pressure Mean 93 mm Hg 06/11/2015 4:11am Pain Pain Intensity 0 2015 4:11am Height (Centimeters) 175.3 cm 06/03/2015 3:44pm Weight (Calculated Grams) 456843.000 gm 06/10/2015 1:32pm Weight (Kilograms) 111.4 kg 06/10/2015 1:32pm Calculated BMI 36.12 3:44pm Vital Response Date/Time Temperature Source Tympanic 06/03/2015 6:00am Pulse Rate (adult) 95 bpm (60 - 90) 06/03/2015 6:00am Respiratory Rate 22 bpm (12 - 24) 06/03/2015 6:00am O2 Sat by Pulse Oximetry 95 % (88 - 100) 06/03/2015 9:56am Blood Pressure 154/86 mm Hg 06/03/2015 6:00am Blood Pressure Mean 108 mm Hg 06/03/2015 6:00am Pain Pain Intensity 0 2015 6:00am Height (Centimeters) 175.3 cm 05/31/2015 2:35pm Weight (Calculated Grams) 11288.000 gm 05/31/2015 2:35pm Weight (Kilograms) 68.8 kg 05/31/2015 2:35pm Height 5 ft 9.02 in Weight 151 lb Body Mass Index 22.0 kg/m^2 Vital Response Date/Time Temperature (Fahrenheit) 97.0 degree s F (97.6 - 99.5) Temperature (Calculated Celsius) 36. 03935 degrees C (36.4 - 37.5) Temperature Source Temporal Pulse Rate (adult) 85 bpm (60 - 90) Respiratory Rate 22 bpm (12 - 24) O2 Sat by Pulse Oximetry 96 % (88 - 100) Blood Pressure 165/111 mm Hg Pain Pain Intensity 0 Height (Feet) 5 feet Height (Inches) 9 inches Height (Calculated Centimeters) 175. 897905 cm Weight (Pounds) 230 pounds Weight (Ounces) 3.0 oz Weight (Calculated Grams) 203143.365 gm Weight (Calculated Kilograms) 104.41 1295 kilograms Calculated BMI 33.96 Vital Response Date/Time Pulse Rate (adult) 73 bpm (60 - 90) 10/24/2016 2:38pm Respiratory Rate 16 bpm (12 - 24) 10/24/2016 2:38pm O2 Sat by Pulse Oximetry 96 % (88 - 100) 10/24/2016 2:38pm Blood Pressure 116/72 mm Hg 10/24/2016 2:38pm Blood Pressure Mean 87 mm Hg 10/24/2016 2:38pm Pain Numeric Pain Scale 0-No Pain 10/24/2016 2:38pm Height (Feet) 5 feet 2:35pm Height (Inches) 8.00 inches 10/24/2016 2:35pm Height (Calculated Centimeters) 172. 224457 cm 10/24/2016 2:35pm Weight (Pounds) 235 pounds 10/24/2016 2:35pm Weight (Ounces) 9.0 oz 0 10/24/2016 2:35pm Weight (Calculated Grams) 835621.35 gm 10/24/2016 2:35pm Weight (Calculated Kilograms) 106.84 9354 kilograms 10/24/2016 2:35pm Calculated BMI 35.8 10/06 2:35pm Vital Response Date/Time Temperature (Fahrenheit) 97.6 degree s F (97.6 - 99.5) 11/02/2016 8:30am Temperature (Calculated Celsius) 36. 22410 degrees C (36.4 - 37.5) 11/02/2016 8:30am Temperature Source Tympanic 11/02/2016 8:30am Pulse Rate (adult) 76 bpm (60 - 90) 11/02/2016 8:30am Respiratory Rate 20 bpm (12 - 24) 11/02/2016 8:30am O2 Sat by Pulse Oximetry 96 % (88 - 100) 11/02/2016 8:30am Blood Pressure 130/82 mm Hg 11/02/2016 8:30am Blood Pressure Mean 98 mm Hg 11/02/2016 8:30am Pain Numeric Pain Scale 0-No Pain 11/02/2016 1:20pm Height (Feet) 5 feet 7:12am Height (Inches) 8.00 inches 10/31/2016 7:12am Height (Calculated Centimeters) 172. 231148 cm 10/31/2016 7:12am Weight (Pounds) 235 pounds 10/31/2016 7:12am Weight (Ounces) 9.0 oz 0 10/31/2016 7:12am Weight (Calculated Grams) 514328.35 gm 10/31/2016 7:12am Weight (Calculated Kilograms) 106.84 9354 kilograms 10/31/2016 7:12am Calculated BMI 35.8 10/06 7:12am Vital Response Date/Time Temperature (Fahrenheit) 98.4 degree s F (97.6 - 99.5) 11/05/2016 8:09pm Temperature (Calculated Celsius) 36. 88188 degrees C (36.4 - 37.5) 11/05/2016 8:09pm Temperature Source Temporal 11/05/2016 8:09pm Pulse Rate (adult) 71 bpm (60 - 90) 11/05/2016 8:09pm Respiratory Rate 14 bpm (12 - 24) 11/05/2016 8:09pm O2 Sat by Pulse Oximetry 98 % (88 - 100) 11/05/2016 8:09pm Blood Pressure 143/82 mm Hg 11/05/2016 8:09pm Blood Pressure Mean 96 mm Hg 11/05/2016 7:33pm Pain Numeric Pain Scale 0-No Pain 11/05/2016 8:09pm Height (Feet) 5 feet 06/2016 7:33pm Height (Inches) 9.00 inches 11/05/2016 7:33pm Height (Calculated Centimeters) 175. 051180 cm 11/05/2016 7:33pm Weight (Pounds) 210 pounds 11/05/2016 7:33pm Weight (Ounces) 9.0 oz 0 10/31/2016 7:12am Weight (Calculated Grams) 360257.35 gm 10/31/2016 7:12am Weight (Calculated Kilograms) 95.254 399 kilograms 11/05/2016 7:33pm Calculated BMI 35.8 10/06 7:12am Capillary Refill Capillary Refill Less Than 3 Seconds 11/05/2016 7:33pm Vital Response Date/Time Temperature (Fahrenheit) 98.4 degree s F (97.6 - 99.5) 11/05/2016 8:09pm Temperature (Calculated Celsius) 36. 50578 degrees C (36.4 - 37.5) 11/05/2016 8:09pm Temperature Source Temporal 11/05/2016 8:09pm Pulse Rate (adult) 71 bpm (60 - 90) 11/05/2016 8:09pm Respiratory Rate 14 bpm (12 - 24) 11/05/2016 8:09pm O2 Sat by Pulse Oximetry 98 % (88 - 100) 11/05/2016 8:09pm Blood Pressure 143/82 mm Hg 11/05/2016 8:09pm Blood Pressure Mean 96 mm Hg 11/05/2016 7:33pm Pain Numeric Pain Scale 0-No Pain 11/05/2016 8:09pm Height (Feet) 5 feet 06/2016 7:33pm Height (Inches) 9.00 inches 11/05/2016 7:33pm Height (Calculated Centimeters) 175. 927314 cm 11/05/2016 7:33pm Weight (Pounds) 210 pounds 11/05/2016 7:33pm Weight (Ounces) 9.0 oz 0 10/31/2016 7:12am Weight (Calculated Grams) 502093.35 gm 10/31/2016 7:12am Weight (Calculated Kilograms) 95.254 399 kilograms 11/05/2016 7:33pm Calculated BMI 35.8 10/06 7:12am Capillary Refill Capillary Refill Less Than 3 Seconds 11/05/2016 7:33pm Interventions No Information Plan of Treatment The data below is from unstructured sources Discharge Date 12/08/15 10:30am Disposition 06 HOME HEALTH SERVICE Instructions/Education Provided Urin endy Tract Infection in Men (GEN) Forms Provided PDI Medical Prescriptions See Medication Section Referrals VERENA LANCE MD (Unspecif ied) - 12/15/15 Address: [address] [place] [id number] Reason(s) for Referral: 2:00PM (Physical Medicine and Rehab) - Reason(s) for Referral: Home Health (Physical Medicine and Rehab) - Care Plan and Goals See Discharge In structions Section Discharge Date 03/20/16 6:00pm Disposition 01 HOME, SELF-CARE Condition at Discharge Stable Instructions/Education Provided Gene ralized Weakness (DC) Prescriptions See Medication Section Referrals VERENA LANCE MD - Primary Care Physician Discharge Date 03/23/16 10:30am Instructions/Education Provided CARD IAC CATH DISCHARGE INSTRUC Prescriptions See Medication Section Discharge Date 04/07/16 10:20pm Disposition 01 HOME, SELF-CARE Condition at Discharge Improved Instructions/Education Provided Head ache, Adult High Blood Pressure (DC) Prescriptions See Medication Section Referrals VERENA LANCE MD - Primary Care Physician Additional Instructions/Education Al l discharge instructions reviewed with patient and/or family. Voiced understanding. Continue home medications as directed. Follow-up with your doctor on Sunday for recheck and further evaluation. Return for worse pain, fever, vomiting, weakness, breathing problems, chest pain, uncontrolled blood pressure or other concerns as needed. Discharge Date 04/08/16 6:21pm Disposition 01 HOME, SELF-CARE Condition at Discharge Improved Instructions/Education Provided Whitney gnant Hypertension (DC) Prescriptions See Medication Section Referrals VERENA LANCE MD - Primary Care Physician Additional Instructions/Education In crease amlodipine to 10 mg daily. Close follow-up with Dr. Lance on Sunday. Return if any problems. All discharge instructions reviewed with patient and/or family. Voiced understanding. Discharge Date 04/28/16 7:19am Disposition 01 HOME, SELF-CARE Condition at Discharge Improved Instructions/Education Provided Acut e Bronchitis, Adult (DC) Prescriptions See Medication Section Referrals VERENA LANCE MD - Primary Care Physician Additional Instructions/Education Al l discharge instructions reviewed with patient and/or family. Voiced understanding. Use albuterol inhaler 2 puffs every 4 hours as needed for breathing concerns. Drink plenty of fluids. You may take the MiraLAX that was prescribed one capful twice daily for the next 3 days as needed for constipation. You may then decrease the dose to one half capful twice daily thereafter to keep stools soft. You may increase or decrease the dose as needed to help with normal bowel movements. Call your DrFrank today for appointment next week for recheck and further evaluation. Return for worsening, fever, vomiting, breathing problems or other concerns as needed. Discharge Date 07/26/16 1:30pm Disposition 05 XFER OTHER Instructions/Education Provided Gene ralized Weakness (DC) Prescriptions See Medication Section Referrals VERENA LANCE MD (Unspecif ied) Entered Date: 07/26/2016 1:10pm Address: [address] [place] [phone] Note: DR LANCE OFFICE WILL CALL [facility] AND INFORM DATE AND TIME OF FOLLOW UP APPOINTMENT Care Plan and Goals See Discharge In structions Section Discharge Date 08/25/16 8:42pm Disposition 01 HOME, SELF-CARE Condition at Discharge Stable Instructions/Education Provided Urin endy Tract Infection, Adult (DC) Prescriptions See Medication Section Referrals VERENA LANCE MD Order Date: Primary Care Physician Address: [address] [place] [address] Discharge Date 06/11/15 9:45am Disposition 01 HOME, SELF-CARE Instructions/Education Provided Urin endy Tract Infection in Men (DC) Chronic Obstructive Pulmonary Disease (DC) Sepsis (DC) Community-acquired Pneumonia (DC) Forms Provided [facility] Medical Rehab Team Conference Summary Prescriptions See Medication Section Referrals LAZ MCKEON DO (Unspeci fied) - Address: [address] [place] [id number] Reason(s) for Referral: F/U with Dr. Mckeon on 07/05/15, at 10:00 AM. (Unspecified) - Reason(s) for Referral: Follow Up with Dr Lance on at 1:45pm Additional Instructions/Education FO LLOW UP APPOINTMENT WITH DR MCKEON ON 2015 AT 10 AM. OFFICE NUMBER [phone]. DR MCKEON'S OFFICE IS LOCATED AT [address] [place] [address]. Monitor your blood sugar as you did before you came to the hospital. Care Plan and Goals Discharge Date 06/11/15 9:45am Disposition 09 ADMITTED INPATIENT Instructions/Education Provided Urin endy Tract Infection in Men (DC) Chronic Obstructive Pulmonary Disease (DC) Sepsis (DC) Community-acquired Pneumonia (DC) Forms Provided [facility] Medical Rehab Team Conference Summary Prescriptions See Medication Section Referrals LAZ MCKEON DO (Unspeci fied) - Address: [address] [place] [phone] Reason(s) for Referral: F/U with Dr. Mckeon on 07/05/15, at 10:00 AM. (Unspecified) - Reason(s) for Referral: Follow Up with Dr Lance on at 1:45pm Additional Instructions/Education FO LLOW UP APPOINTMENT WITH DR MCKEON ON 2015 AT 10 AM. OFFICE NUMBER [phone]. DR MCKEON'S OFFICE IS LOCATED AT [address] [place] [address]. Monitor your blood sugar as you did before you came to the hospital. Care Plan and Goals Discharge Date 06/03/15 11:56am Disposition 01 HOME, SELF-CARE Instructions/Education Provided Comm unity-acquired Pneumonia (DC) Prescriptions See Medication Section Discharge Date 10/24/16 4:00pm Prescriptions See Medication Section Discharge Date 11/02/16 1:20pm Instructions/Education Provided How to Care for Your Brady Catheter, Male Prescriptions See Medication Section Discharge Date 11/05/16 8:08pm Disposition 03 XFER SNF Condition at Discharge Improved Instructions/Education Provided Urin endy Tract Infection, Adult (DC) How to Care for Your Brady Catheter, Male How to Prevent Pressure Ulcers Brady Catheter, Male How to Prevent Catheter Associated Urinary Tract Infections Prescriptions See Medication Section Referrals JOHAN LAROSE MD Address: [address] [place] [phone] VERENA LANCE MD Order Date: Primary Care Physician Address: [address] [place] [address] Note: VERENA LANCE MD Order Date: Primary Care Physician Address: [address] [place] [address] Note: Additional Instructions/Education CO NTINUE ALL PREVIOUS ORDERS FOLLOW UP WITH DR. LANCE AND DR. LAROSE FOR FURTHER CARE Discharge Date 11/05/16 8:08pm Disposition 03 XFER SNF Condition at Discharge Improved Instructions/Education Provided Urin endy Tract Infection, Adult (DC) How to Care for Your Brady Catheter, Male How to Prevent Pressure Ulcers Brady Catheter, Male How to Prevent Catheter Associated Urinary Tract Infections Prescriptions See Medication Section Referrals JOHAN LAROSE MD Address: [address] [place] [phone] VERENA LANCE MD Order Date: Primary Care Physician Address: [address] [place] [address] Note: EVRENA LANCE MD Order Date: Primary Care Physician Address: [address] [place] [address] Note: Additional Instructions/Education CO NTINUE ALL PREVIOUS ORDERS FOLLOW UP WITH DR. LANCE AND DR. LAROSE FOR FURTHER CARE Goals No Information Social History No Information Functional Status The data below is from unstructured sources Query Response Date Tj rded Patient Orientation Normal For Age December 07, 2015 9:42am Patient Orientation Person Place Time Situation December 08, 2015 11:17am Comprehension Ability Understands Co ncepts December 05, 2015 8:00am Query Response Date Tj rded Patient Orientation Person Place Time Situation March 20, 2016 2:17pm Comprehension Ability Understands Co ncepts March 20, 2016 2:17pm Query Response Date Tj rded Patient Orientation Person Place Time Situation March 23, 2016 11:43am Comprehension Ability Understands Co ncepts March 23, 2016 8:15am Query Response Date Tj rded Patient Orientation Person Place Time Situation July 26, 2016 11:45am Patient Orientation Person Place Time Situation Eyes Open July 26, 2016 8:30am Comprehension Ability Understands Co ncepts July 26, 2016 8:30am Query Response Date Tj rded Patient Orientation Normal For Age June 10, 2015 12:02pm Patient Orientation Person Place Time Situation June 11, 2015 10:58am Comprehension Ability Understands Co ncepts June 11, 2015 9:24am Query Response Date Tj rded Patient Orientation Normal For Age June 02, 2015 3:59pm Patient Orientation Person Place Time Situation June 03, 2015 12:06pm Comprehension Ability Understands Co ncepts June 01, 2015 9:00pm Query Response Date Tj rded Patient Orientation Person Place Time Situation Eyes Open November 02, 2016 9:53am No functional status information available. Mental Status No Information Encounters Encounter Normalized Encounter Encounter Diagnosis Care Provi rojelio Organization Date Type 04-28-2019 Emergency department no information no name (no bart ne) no organization name patient visit (no phone) 09-29-2018 Emergency department no information no name (no bart ne) no organization name - patient visit (no phone) 09-29-2018 09-29-2018 Emergency department no information no name (no bart ne) no organization name - patient visit (no phone) 09-29-2018 11-05-2016 Emergency department no information no name (no bart ne) no organization name - patient visit (no phone) 11-05-2016 08-25-2016 Emergency department no information no name (no bart ne) no organization name - patient visit (no phone) 08-25-2016 07-24-2016 Emergency department no information no name (no bart ne) no organization name patient visit (no phone) 04-27-2016 Emergency department no information no name (no bart ne) no organization name - patient visit (no phone) 04-28-2016 04-08-2016 Emergency department no information no name (no bart ne) no organization name - patient visit (no phone) 04-08-2016 04-07-2016 Emergency department no information no name (no bart ne) no organization name - patient visit (no phone) 04-07-2016 03-04-2016 Emergency department no information no name (no bart ne) no organization name - patient visit (no phone) 03-04-2016 02-24-2016 Emergency department no information no name (no bart ne) no organization name - patient visit (no phone) 02-24-2016 09-13-2013 Emergency department no information no name (no bart ne) no organization name - patient visit (no phone) 09-13-2013 07-21-2011 Emergency department no information no name (no bart ne) no organization name - patient visit (no phone) 07-22-2011 01-09-2010 Emergency department no information no name (no bart ne) no organization name - patient visit (no phone) 01-09-2010 12-08-2009 Emergency department no information no name (no bart ne) no organization name - patient visit (no phone) 12-08-2009 04-28-2019 Evaluation and no information no name (no phone) n o organization name - management of (no phone) 05-01-2019 inpatient 07-24-2016 Evaluation and no information no name (no phone) n o organization name - management of (no phone) 07-26-2016 inpatient 02-19-2016 Evaluation and no information no name (no phone) n o organization name - management of (no phone) 02-22-2016 inpatient 12-03-2015 Evaluation and no information no name (no phone) n o organization name - management of (no phone) 12-08-2015 inpatient 06-03-2015 Evaluation and no information no name (no phone) n o organization name - management of (no phone) 06-11-2015 inpatient 05-31-2015 Evaluation and no information no name (no phone) n o organization name - management of (no phone) 06-03-2015 inpatient 07-11-2013 Evaluation and no information no name (no phone) n o organization name - management of (no phone) 07-14-2013 inpatient 07-11-2013 Evaluation and no information no name (no phone) n o organization name - management of (no phone) 07-14-2013 inpatient 04-24-2012 Evaluation and no information no name (no phone) n o organization name - management of (no phone) 04-28-2012 inpatient 08-20-2011 Evaluation and no information no name (no phone) n o organization name - management of (no phone) 08-21-2011 inpatient 06-06-2017 Patient encounter no information no name (no phone) no organization name - (no phone) 06-06-2017 05-30-2017 Patient encounter no information no name (no phone) no organization name (no phone) 05-25-2017 Patient encounter no information no name (no phone) no organization name (no phone) 10-31-2016 Patient encounter no information no name (no phone) no organization name - (no phone) 11-02-2016 06-14-2016 Patient encounter no information no name (no phone) no organization name - (no phone) 06-15-2016 03-22-2016 Patient encounter no information no name (no phone) no organization name - (no phone) 03-23-2016 11-19-2014 Patient encounter no information no name (no phone) no organization name (no phone) 01-29-2012 Patient encounter no information no name (no phone) no organization name - (no phone) 01-29-2012 01-26-2012 Patient encounter no information no name (no phone) no organization name (no phone) 07-10-2019 Patient encounter no information VERENA LANCE MD ( no [facility] procedure phone) [facility] (no phone) 04-28-2019 Patient encounter no information no name (no phone) no organization name - procedure (no phone) 05-01-2019 03-21-2019 Patient encounter no information no name (no phone) no organization name procedure (no phone) 02-28-2019 Patient encounter no information no name (no phone) no organization name procedure (no phone) 02-21-2019 Patient encounter no information no name (no phone) no organization name procedure (no phone) 02-12-2019 Patient encounter no information no name (no phone) no organization name procedure (no phone) 02-12-2019 Patient encounter no information no name (no phone) no organization name procedure (no phone) 10-07-2018 Patient encounter no information no name (no phone) no organization name procedure (no phone) 10-07-2018 Patient encounter no information no name (no phone) no organization name procedure (no phone) 09-29-2018 Patient encounter no information no name (no phone) no organization name procedure (no phone) 06-06-2017 Patient encounter no information no name (no phone) no organization name - procedure (no phone) 06-06-2017 05-25-2017 Patient encounter no information no name (no phone) no organization name procedure (no phone) 11-05-2016 Patient encounter no information no name (no phone) no organization name procedure (no phone) 10-31-2016 Patient encounter no information no name (no phone) no organization name - procedure (no phone) 11-02-2016 10-24-2016 Patient encounter no information no name (no phone) no organization name - procedure (no phone) 10-24-2016 09-28-2016 Patient encounter no information no name (no phone) no organization name procedure (no phone) 08-25-2016 Patient encounter no information no name (no phone) no organization name procedure (no phone) 07-24-2016 Patient encounter no information no name (no phone) no organization name - procedure (no phone) 07-26-2016 06-14-2016 Patient encounter no information no name (no phone) no organization name - procedure (no phone) 06-15-2016 05-16-2016 Patient encounter no information no name (no phone) no organization name procedure (no phone) 03-22-2016 Patient encounter no information no name (no phone) no organization name - procedure (no phone) 03-23-2016 03-13-2016 Patient encounter no information no name (no phone) no organization name procedure (no phone) 03-09-2016 Patient encounter no information no name (no phone) no organization name procedure (no phone) 11-19-2014 Patient encounter no information no name (no phone) no organization name procedure (no phone) 08-23-2011 Patient encounter no information no name (no phone) no organization name procedure (no phone) 08-16-2011 Patient encounter no information no name (no phone) no organization name procedure (no phone) 06-23-2009 Patient encounter no information no name (no phone) no organization name - procedure (no phone) 06-24-2009 03-30-2009 Patient encounter no information no name (no phone) no organization name procedure (no phone) 12-10-2008 Patient encounter no information no name (no phone) no organization name - procedure (no phone) 12-11-2008 05-13-2008 Patient encounter no information no name (no phone) no organization name procedure (no phone) 10-10-2007 Patient encounter no information no name (no phone) no organization name - procedure (no phone) 10-11-2007 02-13-2006 Patient encounter no information no name (no phone) no organization name procedure (no phone) 09-29-2005 Patient encounter no information no name (no phone) no organization name procedure (no phone) 09-28-2005 Patient encounter no information no name (no phone) no organization name procedure (no phone) no information Encounter for other no name (no phone) no org anization name preprocedural (no phone) examination no information Encounter for no name (no phone) no organiza tion name preprocedural (no phone) laboratory examination no information Encounter for no name (no phone) no organiza tion name preprocedural (no phone) respiratory examination no information Encounter for no name (no phone) no organiza tion name preprocedural (no phone) cardiovascular examination no information Pre-operative no name (no phone) no organiza tion name examination, (no phone) unspecified Medical Equipment No Information Payers No Information Advance Directives Directive Response Recor ded Date/Time Advance Directives No 11:00pm Health Care Power of Global Clinical Leader No 12/03/15 8:43pm Organ Donor No 12/03/15 8:43pm Resuscitation Status Full Code 12/03/15 11:00pm Directive Response Recor ded Date/Time Advance Directives No 2:17pm Health Care Power of Global Clinical Leader No 03/20/16 2:17pm Organ Donor No 03/20/16 2:17pm Resuscitation Status Full Code 03/20/16 2:17pm Directive Response Recor ded Date/Time Advance Directives No 1:04pm Health Care Power of Global Clinical Leader No 03/22/16 1:04pm Organ Donor No 03/22/16 1:04pm Resuscitation Status Full Code 03/22/16 1:04pm Directive Response Recor ded Date/Time Advance Directives No 8:57pm Health Care Power of Global Clinical Leader No 04/07/16 8:57pm Organ Donor No 04/07/16 8:57pm Resuscitation Status Full Code 04/07/16 8:57pm Directive Response Recor ded Date/Time Advance Directives No 4:00pm Health Care Power of Global Clinical Leader No 04/08/16 4:00pm Organ Donor No 04/08/16 4:00pm Resuscitation Status Full Code 04/08/16 4:00pm Directive Response Recor ded Date/Time Advance Directives No 4:27am Health Care Power of Global Clinical Leader No 04/28/16 4:27am Organ Donor No 04/28/16 4:27am Resuscitation Status Full Code 04/28/16 4:27am Directive Response Recor ded Date/Time Advance Directives No 7:30pm Health Care Power of Global Clinical Leader No 07/24/16 7:30pm Organ Donor No 07/24/16 7:30pm Resuscitation Status Full Code 07/24/16 7:30pm Directive Response Recor ded Date/Time Advance Directives No 6:51pm Health Care Power of Global Clinical Leader No 08/25/16 6:51pm Organ Donor No 08/25/16 6:51pm Resuscitation Status Full Code 08/25/16 6:51pm Directive Response Recor ded Date/Time Advance Directives No 12:40pm Health Care Power of Global Clinical Leader No 06/03/15 12:40pm Organ Donor No 06/03/15 12:40pm Resuscitation Status Full Code 06/03/15 12:40pm Directive Response Recor ded Date/Time Advance Directives No 5:08pm Health Care Power of Global Clinical Leader No 05/31/15 5:08pm Organ Donor No 05/31/15 5:08pm Resuscitation Status Full Code 05/31/15 5:08pm Directive Response Recor ded Date/Time Advance Directives No 4:27pm Health Care Power of Global Clinical Leader No 04/15/14 4:27pm Organ Donor No 04/15/14 4:27pm Resuscitation Status Full Code 04/15/14 4:27pm Directive Response Recor ded Date/Time Advance Directives No 2:37pm Health Care Power of Global Clinical Leader No 10/24/16 2:37pm Organ Donor No 08/25/16 6:51pm Resuscitation Status Full Code 10/24/16 2:37pm Directive Response Recor ded Date/Time Advance Directives No 10:38am Health Care Power of Global Clinical Leader No 10/31/16 10:38am Organ Donor No 10/31/16 10:38am Resuscitation Status Full Code 10/31/16 10:38am Directive Response Recor ded Date/Time Advance Directives No 7:33pm Health Care Power of Global Clinical Leader No 11/05/16 7:33pm Organ Donor No 11/05/16 7:33pm Resuscitation Status Full Code 11/05/16 7:33pm Discharge Instructions Patient Instructions Physician Instructions Patient Instructions/FollowUp: Obtain appt with Dr Lance in 1 week Patient Problems: Deconditioning DM Hypoxia [place]IA [place] DISCHARGE ORDERS Height (Feet): 5 Height (Inches): 9.00 Weight (Pounds): 230 Weight (Ounces): 3.0 Weight (Kilograms): 111.4 Reason Pt Homebound Weakness I Have Seen Pt [id number]: Yes Date of Face to Face: Dec 08, 2015 Discharged To: Home Diagnosis/Conditions HH Order: Med administration PT/OT *I certify that based on my findings, the following services are medically necessary Home Health Services: Services: Nursing Services, Ammunition [employer] Ii Laborer-Evaluate & Treat, Physical Therapy-Evaluate & Treat, Speech Language-Evaluate & Treat My clinical findings support the need for the above services; see Diagnosis. Dicharge Diet: ADA Diet Daily Activity as Tolerated: Yes New, Converted, or Re-newed RX: Other (No new meds) I certify that this patient is under my care and that I, a nurse practitioner or a physician; a railway yard assistant working with me, had a face to face encounter that - meets the physician face to face encounter requirements with this patient as dated. Care Plan Patient Instructions:: Obtain appt with Dr Lance in 1 week Patient Problems: DeconditioningDMHypoxia No hospital discharge instructions. Patient Instructions Physician Instructions Follow Up/Plan appointment with Dr. Murphy's office in 2-4 weeks CARDIAC CATH DISCHARGE INSTRUCTIONS *Hold Metformin for 48 hours post heart cath. ACTIVITY * Go Home directly and rest. * Limit activity of the leg (or wrist if it was used) for 7 days including aerobics, swimming, jogging, bicycling, etc. * Restrict stair-climbing for 7 days if possible, if not, climb up with your non-cath leg, then bring together on the same step. * Avoid lifting, pushing, pulling or excessive movement of the affected extremity for 7 days. * Customary sexual activity may be resumed after 2 days-use caution not to use a position that strains or causes pain to the affected extremity. * No driving for 24 hours. * NO SMOKING. * Avoid straining for bowel movements for 7 days. * Gentle walking on level ground is allowed. * Returning to work will depend on the type of procedure and the results. Your doctor will discuss this with you. CALL YOUR DOCTOR FOR ANY OF THE FOLLOWING: *If bleeding from the puncture site occurs- Apply gentle pressure to site with clean cloth and call your doctor or EMS. * If a knot or lump forms under the skin, increases in size, or causes pain. * If bruising appears to be worsening or moving further down your leg instead of disappearing. * Temperature above 101 F. CARE OF YOUR GROIN INCISION; * Bruising or purple discoloration of the skin near the puncture site is common. * You may shower only, no bathtub bathing for 5 days. Be careful to avoid slipping as your leg may feel stiff. * If a closure device was used on your femoral artery, please see the attached guide regarding care of the device and your leg. * REMOVE the dressing from your groin the next day after your procedure in the shower. CARE OF YOUR WRIST INCISION; * Bruising or purple discoloration of the skin near the puncture site is common. * You may shower. * DO NOT submerge wrist. * Remove dressing in 24 hours. No hospital discharge instructions.No hospital discharge instructions.No hospital discharge instructions. Patient Instructions Physician Instructions Patient Instructions/FollowUp: Obtain close follow up with Dr Lance this week to evaluate bladder status Patient Problems: UTI Debility HTN VIA [place] DISCHARGE ORDERS Height (Feet): 5 Height (Inches): 8.00 Weight (Pounds): 256 Weight (Ounces): 9.0 Weight (Kilograms): 111.4 Reason Pt Homebound weakness, dementia I Have Seen Pt [id number]: Yes Date of Face to Face: Jul 26, 2016 Discharged To: Home Diagnosis/Conditions HH Order: Physical therapy at home *I certify that based on my findings, the following services are medically necessary Home Health Services: Services: Physical Therapy-Evaluate & Treat My clinical findings support the need for the above services; see Diagnosis. Dicharge Diet: Cardiac Diet Pneu Vac Indicated: Yes New, Converted, or Re-newed RX: Transmited to Pharmacy I certify that this patient is under my care and that I, a nurse practitioner or a physician; a railway yard assistant working with me, had a face to face encounter that - meets the physician face to face encounter requirements with this patient as dated. Care Plan Patient Instructions:: Obtain close follow up with Dr Lance this week to evaluate bladder status Patient Problems: UTIDebilityHTN No hospital discharge instruction information available.No hospital discharge i nstructions.No hospital discharge instructions.No hospital discharge instruction s.No hospital discharge instructions.No hospital discharge instructions.No hospi claudette discharge instruction information available. Patient Instructions Physician Instructions New, Converted, or Re-newed RX: RX on Chart Plan Discharge with brady and leg bag day time and large bag night time with instructions Keep bowels soft and moving No straining or heavy lifting Stay off ASA and [place] Office Sunday 10 am Increase oral fluids for 48 hours and then as needed. Diet and Activity as tolerated. If questions or concerns contact your physician Or seek help at emergency department. No hospital discharge instruction information available. Additional Source Comments This clinical document has been generated using [employer] software that has been certified by the Office of the National Coordinator for Health Information Technology (ONC 15.99.04.3023.[id number].[id number]) and the National Committee for Test Worker (NCQA, as an eMeasure certified technology). FOR RECORDS PERTAINING TO PATIENTS WHO ARE OR HAVE BEEN ENROLLED IN A CHEMICAL D EPENDENCY/SUBSTANCE ABUSE PROGRAM, SOME INFORMATION MAY BE OMITTED. This clinica l summary was aggregated from multiple sources. Caution should be exercised in using it in the provision of clinical care. This summary normalizes information from multiple sources, and as a consequence, information in this document may ma terially change the coding, format and clinical context of patient data. In nissa tion, data may be omitted in some cases. CLINICAL DECISIONS SHOULD BE BASED ON T HE PRIMARY CLINICAL RECORDS. [facility]. provides no warranty or guara ntee of the accuracy or completeness of information in this document.The followi ng information is based on time limited clinical information
[2019-07-28] MEDS ORDERED: NS IV 500 ML 500 ML IV ONE (05:21)
--- OUTSIDE RECORDS SUMMARY | 2019-07-28 05:21 | XMS REPORT | Clinical Summary ---
Author Author [facility] Organization [facility] Address Unknown Phone Unavailable Care Team Providers Care Test Administrator Name Role Phone Moses Mccauley MD Unavailable Bhaskar Alcantara MD PCP Nan Kaufman MD Unavailable Unavailable Source Comments Some departments are not documenting in the electronic medical record. If you d o not see the information that you expected, contact Release of Information in [facility] Information Management department at [phone] for further assistan ce in locating additional records.[facility] Allergies Comments Active Allergy Reactions Severity Noted Date Duloxetine UNKNOWN Low 09/10/2014 Penicillins RASH Medium 09/10/2014 Medications End Date Status Medication Sig Dispensed Refills Start Date Active risperiDONE (RISPERDAL) 2 Take 2 mg by 0 mg tablet mouth twice daily. Active BUPROPION HCL (WELLBUTRIN Take by 0 PO) mouth. Active traZODone (DESYREL) 150 Take 150 mg 0 mg tablet by mouth at bedtime daily. Active PANTOPRAZOLE SODIUM Take by 0 (PROTONIX PO) mouth. Active METOPROLOL TARTRATE PO Take by 0 mouth. Active AMLODIPINE BESYLATE Take by 0 (AMLODIPINE PO) mouth. Active SIMVASTATIN (ZOCOR PO) Take by 0 mouth. Active INSULIN Inject into 0 GLARGINE,HUM.REC.ANLOG area(s) as (LANTUS SC) directed. Active linagliptin (TRADJENTA) 5 Take 5 mg by 0 mg tab mouth daily. Active trospium(+) (SANCTURA) 20 Take 1 Tab by 180 Tab 3 11/17/201 mg tablet mouth twice 6 daily before meals. Active Problems Problem Noted Date Incontinence 11/22/2015 Overview: 11/22/15: Mr. Ann was previously seen by Dr. Mccauley. He has urge and likely overflow incontinence as he is d rinking at least 4 liters of fluids soda, tea, coffee, some water per day a nd only voiding q5h. He takes Flomax for weak stream and has tried multiple anticholinergic medications without relief. 04/14/16: Improved UUI after decreasing fluid intake. Still w/ nocturnal enuresis. History of BOBO and not using CPAP. - Uroflow: qMax 28.4, qAve 131, voided volume 484 mls L ast Assessment & Plan: Daytime symptoms improved with reductio n of fluid and caffeine intake. Continues to be bothered by nocturnal e nuresis. He has a history of BOBO and does not wear his CPAP; this is lik suly the cause of his nighttime symptoms. - Continue caffeine and fluid limitatio n - Encouraged to begin using CPAP again. - Return to clinic PRN. Social History Date Tobacco Use Types Packs/Day Years Used Never Smoker Smokeless Tobacco: Never Used Drinks/Week oz/Week Comments Alcohol Use No Sex Assigned at Date Recorded Not on file Industry Job Start Date Occupation Not on file Not on file Not on file Travel End Travel History Travel Start No recent travel history available. Last Filed Vital Signs Reading Time Taken Comments Vital Sign 147/94 04/24/2016 4:02 PM CASTING ASSOCIATE Blood Pressure 88 04/24/2016 4:02 PM CASTING ASSOCIATE Pulse - - Temperature 16 11/22/2015 2:32 PM CDT Respiratory Rate - - Oxygen Saturation - - Inhaled Oxygen Concentration 108.9 kg (240 lb) 04/24/2016 4:02 PM CASTING ASSOCIATE Weight 175.3 cm (5' 9") 04/24/2016 4:02 PM CASTING ASSOCIATE Height 35.44 04/24/2016 4:02 PM CASTING ASSOCIATE Body Mass Index Plan of Treatment Health Maintenance Due Date Last Done Comments HEPATITIS C SCREENING 1945 MEDICARE ANNUAL WELLNESS 1945 VISIT DTAP/TDAP VACCINES (1 - 1957 Tdap) DILATED EYE EXAM 1964 FOOT EXAM 1964 MICROALBUMIN 1964 PHYSICAL (COMPREHENSIVE) 1964 EXAM COLORECTAL CANCER 1996 SCREENING SHINGLES RECOMBINANT 1996 VACCINE (1 of 2) PNEUMONIA (PCV13/PPSV23) 2011 VACCINES (1 of 2 - PCV13) HBA1C 05/24/2016 11/22/2015 INFLUENZA VACCINE 12/05/2018 Results Not on filefrom Last 3 Months Insurance Type Payer Benefit Subscriber ID Effective Phone Address Plan / Dates Group Medicare MEDICARE MEDICARE xxxxxxxxxx 2000-P PART A AND resent B [id number] Advance Directives 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
--- OUTSIDE RECORDS SUMMARY | 2019-07-28 05:25 | XMS REPORT | Continuity of Care Document ---
Author Organization Unknown Address Unknown Phone Unavailable Allergies Active Description Code Type Severity Reaction Onset Reported/Identified Relationship to Patient Clinical Status Yes Penicillins [id number] Drug Aller gy Mild HIVES 09/19/2008 [address] HCl [id number] Dr [email or web address] Allergy Mild N/A 08/20/2011 Medications There is no data. Problems Date Dx Coded Attending Type Code Diagnosis Diagnosed By 10/11/2007 Ot 327.23 12/11/2008 Ot 327.23 12/11/2008 Ot 401.9 12/11/2008 Ot 414.00 06/24/2009 Ot 250.00 DAYANNA B SPIKE WO COMPL, TYPE II OR UNSPEC TY 06/24/2009 Ot 327.23 OBS TRUCTIVE SLEEP APNEA (ADULT) (PEDIATR 06/24/2009 Ot 401.9 HYPE RTENSION NOS 06/24/2009 Ot 530.81 ESO PHAGEAL REFLUX 12/08/2009 Ot 250.00 DAYANNA B SPIKE WO COMPL, TYPE II OR UNSPEC TY 12/08/2009 Ot 276.1 HYPO SMOLALITY 12/08/2009 Ot 496 CHR AI RWAY OBSTRUCT NEC 12/08/2009 Ot 599.0 URIN TRACT INFECTION NOS 12/08/2009 Ot 780.60 FEV ER, UNSPECIFIED 12/08/2009 Ot 780.79 OTH MALAISE FATIGUE 12/08/2009 Ot V58.66 LUMA G-TERM (CURRENT) USE OF ASPIRIN 12/08/2009 Ot V58.69 OTH MED,LT,CURRENT USE 01/09/2010 Ot 112.89 CAN DIDIASIS SITE NEC 01/09/2010 Ot 250.02 DAYANNA B SPIKE WO COMPL, TYPE II OR UNSPEC TY 01/09/2010 Ot 893.0 OPEN WOUND OF TOE 01/09/2010 Ot E000.8 OTH ER EXTERNAL CAUSE STATUS 01/09/2010 Ot E928.9 ACC IDENT NOS 01/09/2010 Ot V58.66 LUMA G-TERM (CURRENT) USE OF ASPIRIN 01/09/2010 Ot V58.69 OTH MED,LT,CURRENT USE 07/21/2011 Ot 428.0 CARL ESTIVE HEART FAILURE NOS 07/21/2011 Ot 782.3 EDEMA 08/21/2011 Ot 250.00 DAYANNA B SPIKE WO COMPL, TYPE II OR UNSPEC TY 08/21/2011 Ot 276.1 HYPO SMOLALITY 08/21/2011 Ot 278.00 OBE SITY, NOS 08/21/2011 Ot 300.00 ANX IETY STATE NOS 08/21/2011 Ot 311 DEPRES SIVE DISORDER NEC 08/21/2011 Ot 327.23 OBS TRUCTIVE SLEEP APNEA (ADULT) (PEDIATR 08/21/2011 Ot 496 CHR AI RWAY OBSTRUCT NEC 08/21/2011 Ot 558.9 JULIEN NF GASTROENTERIT NEC 08/21/2011 Ot 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 08/21/2011 Ot 571.8 PLATE AND FRAME FILTER OPERATOR MARGE LIVER DIS NEC 08/21/2011 Ot 585.9 PLATE AND FRAME FILTER OPERATOR MARGE KIDNEY DISEASE, UNSPECIFIED 08/21/2011 Ot 782.3 EDEMA 08/21/2011 Ot 788.20 RET ENTION OF URINE NOS 08/21/2011 Ot V13.09 PER LINNEA HISTORY OTH SPEC URINARY SYSTEM 08/21/2011 Ot V15.82 HIS TORY OF TOBACCO USE 08/21/2011 Ot V85.41 BOD Y MASS INDEX 40.0-44.9, ADULT 01/29/2012 Ot 562.10 DIV ERTICULOSIS COLON (W/O MENT OF HEMORR 01/29/2012 Ot V58.69 OTH MED,LT,CURRENT USE 01/29/2012 Ot V76.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 04/28/2012 Ot 038.0 STRE PTOCOCCAL SEPTICEMIA 04/28/2012 Ot 250.00 DAYANNA B SPIKE WO COMPL, TYPE II OR UNSPEC TY 04/28/2012 Ot 272.4 HYPE RLIPIDEMIA NEC/NOS 04/28/2012 Ot 311 DEPRES SIVE DISORDER NEC 04/28/2012 Ot 327.23 OBS TRUCTIVE SLEEP APNEA (ADULT) (PEDIATR 04/28/2012 Ot 403.90 HYP TNSV CHR KID DIS, UNSPEC, W CHR KD ST 04/28/2012 Ot 496 CHR AI RWAY OBSTRUCT NEC 04/28/2012 Ot 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 04/28/2012 Ot 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, STAGE III (MODER 04/28/2012 Ot 599.0 URIN TRACT INFECTION NOS 04/28/2012 Ot 995.91 SEPSIS 04/28/2012 Ot V15.82 HIS TORY OF TOBACCO USE 07/14/2013 VERENA LANCE MD Ot 112.3 CUTANEOUS CANDIDIASIS 07/14/2013 VERENA LANCE MD Ot 250.0 0 DIAB SPIKE WO COMPL, TYPE II OR UNSPEC TY 07/14/2013 VERENA LANCE MD Ot 276.1 HYPOSMOLALITY 07/14/2013 VERENA LANCE MD Ot 278.0 1 MORBID OBESITY 07/14/2013 VREENA LANCE MD Ot 288.6 0 LEUKOCYTOSIS, UNSPECIFIED 07/14/2013 VERENA LANCE MD Ot 327.2 3 OBSTRUCTIVE SLEEP APNEA (ADULT) (PEDIATR 07/14/2013 VERENA LANCE MD Ot 401.9 HYPERTENSION NOS 07/14/2013 VERENA LANCE MD Ot 414.0 1 CORONARY ATHEROSCLEROSIS OF [place] CORON 07/14/2013 VERENA LANCE MD Ot 496 CHR AIRWAY OBSTRUCT NEC 07/14/2013 VERENA LANCE MD Ot 518.8 3 CHRONIC RESPIRATORY FAILURE 07/14/2013 VERENA LANCE MD Ot 584.9 ACUTE RENAL FAILURE, UNSPECIFIED 07/14/2013 VERENA LANCE MD Ot 780.9 7 ALTERED MENTAL STATUS 07/14/2013 VERENA LANCE MD Ot 785.0 TACHYCARDIA NOS 07/14/2013 VERENA LANCE MD Ot 799.0 2 HYPOXEMIA 07/14/2013 VERENA LANCE MD Ot 995.9 0 SYSTEMIC INFLAMMATORY RESPONSE SYNDROME 07/14/2013 VERENA LANCE MD Ot V15.8 2 HISTORY OF TOBACCO USE 07/14/2013 VERENA LANCE MD Ot V58.6 7 LONG-TERM (CURRENT) USE OF INSULIN 07/14/2013 VERENA LANCE MD Ot V85.3 6 BODY MASS INDEX 36.0-36.9, ADULT 09/13/2013 AMANDA WOODSON DO Ot 250.00 DIAB SPIKE WO COMPL, TYPE II OR UNSPEC TY 09/13/2013 AMANDA WOODSON DO Ot 571.8 CHRONIC LIVER DIS NEC 09/13/2013 AMANDA WOODSON DO Ot 789.01 ABDOMINAL PAIN, RIGHT UPPER QUADRANT 03/31/2014 Ot 250.00 03/31/2014 Ot 496 03/31/2014 Ot 959.7 03/31/2014 Ot E000.8 03/31/2014 Ot E030 03/31/2014 Ot E849.7 03/31/2014 Ot E888.9 03/31/2014 Ot 424.0 03/31/2014 Ot 428.0 03/31/2014 Ot 429.3 03/31/2014 Ot 729.81 03/31/2014 Ot 782.3 03/31/2014 Ot 787.91 03/31/2014 Ot V72.84 04/15/2014 JOANNA ANDREW MD Ot 786.50 CHEST PAIN NOS 04/15/2014 JOANNA ANDREW MD Ot 786.52 PAINFUL RESPIRATION 05/06/2014 CHARLIE PA, VANESSA Montoya Ot 272.4 05/06/2014 CHARLIE PA, VANESSA Montoya Ot 401.9 05/06/2014 CHARLIE RUBIO, VANESSA Montoya Ot 414.00 05/06/2014 CHARLIE PA, VANESSA Montoya Ot 433.10 05/27/2014 CHARLIE PA, VANESSA Montoya Ot 272.4 05/27/2014 CHARLIE PA, VANESSA Montoya Ot 401.9 05/27/2014 CHARLIE PA, VANESSA Montoya Ot 414.00 05/27/2014 CHARLIE RUBIO, VANESSA Montoya Ot 433.10 11/19/2014 Ot 496 11/19/2014 Ot 959.7 11/19/2014 Ot E000.8 11/19/2014 Ot E030 11/19/2014 Ot E849.7 11/19/2014 Ot E888.9 11/19/2014 Ot 424.0 11/19/2014 Ot 428.0 11/19/2014 Ot 429.3 11/19/2014 Ot 729.81 11/19/2014 Ot 782.3 11/19/2014 Ot 787.91 11/19/2014 Ot V72.84 11/19/2014 CHARLIE RUBIO, VANESSA Montoya Ot 272.4 11/19/2014 CHARLIE RUBIO, VANESSA Montoya Ot 401.9 11/19/2014 CHARLIE PA, VANESSA Montoya Ot 414.00 11/19/2014 CHARLIE PA, VANESSA Montoya Ot 433.10 12/10/2014 CHARLIE PA, VANESSA K Ot 272.4 12/10/2014 CHARLIE PA, VANESSA K Ot 401.9 12/10/2014 CHARLIE PA, VANESSA K Ot 414.00 12/10/2014 CHARLIE PA, VANESSA K Ot 433.10 12/10/2014 CHARLIE PA, VANESSA K Ot 433.30 12/10/2014 CHARLIE PA, VANESSA K Ot 496 12/22/2014 CHARLIE PA, VANESSA K Ot 272.4 12/22/2014 CHARLIE PA, VANESSA K Ot 401.9 12/22/2014 CHARLIE PA, VANESSA K Ot 414.00 12/22/2014 CHARLIE PA, VANESSA K Ot 433.10 12/22/2014 CHARLIE PA, VANESSA K Ot 433.30 12/22/2014 CHARLIE PA, VANESSA Montoya Ot 496 06/03/2015 VERENA LANCE MD, Ot A41.9 SEPSIS, UNSPECIFIED ORGANISM 06/03/2015 VERENA LANCE MD, Ot B35.4 TINEA CORPORIS 06/03/2015 VERENA LANCE MD, Ot E11.9 TYPE 2 DIABETES MELLITUS WITHOUT COMPLIC 06/03/2015 VERENA LANCE MD, Ot E86.0 DEHYDRATION 06/03/2015 VERENA LANCE MD, Ot G47.3 3 OBSTRUCTIVE SLEEP APNEA (ADULT) (PEDIATR 06/03/2015 VERENA LANCE MD, Ot I10 ESSENTIAL (PRIMARY) HYPERTENSION 06/03/2015 VERENA LANCE MD, Ot I25.1 0 ATHSCL HEART DISEASE OF [place] CORONARY 06/03/2015 VERENA LANCE MD, Ot I50.9 HEART FAILURE, UNSPECIFIED 06/03/2015 VERENA LANCE MD, Ot J18.9 PNEUMONIA, UNSPECIFIED ORGANISM 06/03/2015 VERENA LANCE MD, Ot J44.9 CHRONIC OBSTRUCTIVE PULMONARY DISEASE, U 06/03/2015 VERENA LANCE MD, Ot J96.2 1 ACUTE AND CHRONIC RESPIRATORY FAILURE [place] 06/03/2015 VERENA LANCE MD, Ot N28.9 DISORDER OF KIDNEY AND URETER, UNSPECIFI 06/03/2015 VERENA LANCE MD, Ot N39.0 URINARY TRACT INFECTION, SITE NOT SPECIF 06/03/2015 VERENA LANCE MD, Ot Z79.4 SNF (CURRENT) USE OF INSULIN 06/03/2015 VERENA LANCE MD Ot Z87.8 91 PERSONAL HISTORY OF NICOTINE DEPENDENCE 06/03/2015 VERENA LANCE MD Ot Z99.8 1 DEPENDENCE ON SUPPLEMENTAL OXYGEN 06/04/2015 JOHNY UP, NAM E Ot B35.4 06/04/2015 JOHNY UP, NAM E Ot E11.9 06/04/2015 JOHNY UP, NAM E Ot E86.0 06/04/2015 JOHNY UP, NAM E Ot G31.8 4 06/04/2015 JOHNY UP, NAM E Ot I10 06/04/2015 JOHNY UP, NAM E Ot I25.1 0 06/04/2015 JOHNY UP, NAM E Ot J18.9 06/04/2015 JOHNY UP, NAM E Ot J44.9 06/04/2015 JOHNY UP, NAM E Ot J96.1 1 06/04/2015 JOHNY UP, NAM E Ot N28.9 06/04/2015 JOHNY UP, NAM E Ot N39.0 06/04/2015 JOHNY UP NAM E Ot Z99.8 1 06/10/2015 JOHNY UP NAM E Ot B35.4 06/10/2015 JOHNY UP, NAM E Ot E11.9 06/10/2015 JOHNY UP, NAM E Ot E86.0 06/10/2015 JOHNY UP, NAM E Ot G31.8 4 06/10/2015 JOHNY UP, NAM E Ot I10 06/10/2015 JOHNY UP, NAM E Ot I25.1 0 06/10/2015 JOHNY UP, NAM E Ot J18.9 06/10/2015 JOHNY UP, NAM E Ot J44.9 06/10/2015 JOHNY UP, NAM E Ot J96.1 1 06/10/2015 JOHNY UP, NAM E Ot N28.9 06/10/2015 JOHNY UP, NAM E Ot N39.0 06/10/2015 JOHNY UP NAM E Ot Z99.8 1 06/10/2015 JOHNY UP NAM E Ot B35.4 06/10/2015 JOHNY UP, NAM E Ot E11.9 06/10/2015 JOHNY UP, NAM E Ot E86.0 06/10/2015 MCCLAIN MD, NAM E Ot G31.8 4 06/10/2015 JOHNY UP, NAM E Ot I10 06/10/2015 JOHNY UP, NAM E Ot I25.1 0 06/10/2015 JOHNY UP, NAM E Ot J18.9 06/10/2015 JOHNY UP, NAM E Ot J44.9 06/10/2015 JOHNY UP, NAM E Ot J96.1 1 06/10/2015 JOHNY UP, NAM E Ot N28.9 06/10/2015 JOHNY UP, NAM E Ot N39.0 06/10/2015 JOHNY UP, NAM E Ot Z99.8 1 06/10/2015 JOHNY UP, NAM E Ot B35.4 06/10/2015 JOHNY UP, NAM E Ot E11.9 06/10/2015 JOHNY UP, NAM E Ot E86.0 06/10/2015 JOHNY UP NAM E Ot G31.8 4 06/10/2015 JOHNY UP NAM E Ot I10 06/10/2015 JOHNY UP NAM E Ot I25.1 0 06/10/2015 JOHNY UP NAM E Ot J18.9 06/10/2015 JOHNY UP NAM E Ot J44.9 06/10/2015 JOHNY UP, NAM E Ot J96.1 1 06/10/2015 JOHNY UP NAM E Ot N28.9 06/10/2015 JOHNY UP, NAM E Ot N39.0 06/10/2015 JOHNY UP NAM E Ot Z99.8 1 06/11/2015 JOHNY UP NAM E Ot B35.4 TINEA CORPORIS 06/11/2015 JOHNY UP, ANM E Ot E11.9 TYPE 2 DIABETES MELLITUS WITHOUT COMPLIC 06/11/2015 JOHNY UP, NAM E Ot E86.0 DEHYDRATION 06/11/2015 JOHNY UP, NAM E Ot E87.1 HYPO-OSMOLALITY AND HYPONATREMIA 06/11/2015 JOHNY UP NAM E Ot 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, SO STATED 06/11/2015 JOHNY UP, NAM E Ot I10 ESSENTIAL (PRIMARY) HYPERTENSION 06/11/2015 JOHNY UP NAM E Ot I25.1 0 ATHSCL HEART DISEASE OF [place] CORONARY 06/11/2015 JOHNY UP NAM E Ot J18.9 PNEUMONIA, UNSPECIFIED ORGANISM 06/11/2015 NAM MCCLAIN MD, Ot J44.9 CHRONIC OBSTRUCTIVE PULMONARY DISEASE, U 06/11/2015 NAM MCCLAIN MD, Ot J96.1 1 CHRONIC RESPIRATORY FAILURE WITH HYPOXIA 06/11/2015 NAM MCCLAIN MD, Ot N28.9 DISORDER OF KIDNEY AND URETER, UNSPECIFI 06/11/2015 NAM MCCLAIN MD, Ot N39.0 URINARY TRACT INFECTION, SITE NOT SPECIF 06/11/2015 NAM MCCLAIN MD Ot R32 UNSPECIFIED URINARY INCONTINENCE 06/11/2015 NAM MCCLAIN MD Ot Z99.8 1 DEPENDENCE ON SUPPLEMENTAL OXYGEN 12/07/2015 VERENA LANCE MD, Ot A41.9 SEPSIS, UNSPECIFIED ORGANISM 12/07/2015 VERENA LANCE MD, Ot B37.2 CANDIDIASIS OF SKIN AND NAIL 12/07/2015 VERENA LANCE MD, Ot E11.4 0 TYPE 2 DIABETES MELLITUS WITH DIABETIC N 12/07/2015 VERENA LANCE MD, Ot E66.0 1 MORBID (SEVERE) OBESITY DUE TO EXCESS CA 12/07/2015 VERENA LANCE MD Ot E78.5 HYPERLIPIDEMIA, UNSPECIFIED 12/07/2015 VERENA LANCE MD Ot E83.4 2 HYPOMAGNESEMIA 12/07/2015 VERENA LANCE MD Ot E86.0 DEHYDRATION 12/07/2015 VERENA LANCE MD, Ot E87.1 HYPO-OSMOLALITY AND HYPONATREMIA 12/07/2015 VERENA LANCE MD Ot E87.6 HYPOKALEMIA 12/07/2015 VERENA LANCE MD, Ot F32.9 MAJOR DEPRESSIVE DISORDER, SINGLE EPISOD 12/07/2015 VERENA LANCE MD Ot G47.3 0 SLEEP APNEA, UNSPECIFIED 12/07/2015 VERENA LANCE MD Ot I12.9 HYPERTENSIVE CHRONIC KIDNEY DISEASE W ST 12/07/2015 VERENA LANCE MD, Ot I25.1 0 ATHSCL HEART DISEASE OF [place] CORONARY 12/07/2015 VERENA LANCE MD, Ot J44.9 CHRONIC OBSTRUCTIVE PULMONARY DISEASE, U 12/07/2015 VERENA LANCE MD, Ot 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 12/07/2015 VERENA LANCE MD, Ot M62.8 2 RHABDOMYOLYSIS 12/07/2015 VERENA LANCE MD, Ot N18.9 CHRONIC KIDNEY DISEASE, UNSPECIFIED 12/07/2015 VERENA LANCE MD Ot N25.8 9 OTH DISORDERS RESULTING FROM IMPAIRED RE 12/07/2015 VERENA LANCE MD, Ot N39.0 URINARY TRACT INFECTION, SITE NOT SPECIF 12/07/2015 VERENA LANCE MD, Ot Z68.3 4 BODY MASS INDEX (BMI) 34.0-34.9, ADULT 12/07/2015 VERENA LANCE MD, Ot Z79.4 SNF (CURRENT) USE OF INSULIN 12/07/2015 VERENA LANCE MD, Ot Z87.8 91 PERSONAL HISTORY OF NICOTINE DEPENDENCE 12/08/2015 VERENA LANCE MD, Ot A41.9 SEPSIS, UNSPECIFIED ORGANISM 12/08/2015 VERENA LANCE MD, Ot B37.2 CANDIDIASIS OF SKIN AND NAIL 12/08/2015 VERENA LANCE MD, Ot E11.4 0 TYPE 2 DIABETES MELLITUS WITH DIABETIC N 12/08/2015 VERENA LANCE MD, Ot E66.0 1 MORBID (SEVERE) OBESITY DUE TO EXCESS CA 12/08/2015 VERENA LANCE MD, Ot E78.5 HYPERLIPIDEMIA, UNSPECIFIED 12/08/2015 VERENA LANCE MD, Ot E83.4 2 HYPOMAGNESEMIA 12/08/2015 VERENA LANCE MD Ot E86.0 DEHYDRATION 12/08/2015 VERENA LANCE MD, Ot E87.1 HYPO-OSMOLALITY AND HYPONATREMIA 12/08/2015 VERENA LANCE MD, Ot E87.2 ACIDOSIS 12/08/2015 VERENA LANCE MD, Ot E87.6 HYPOKALEMIA 12/08/2015 VERENA LANCE MD, Ot F32.9 MAJOR DEPRESSIVE DISORDER, SINGLE EPISOD 12/08/2015 VERENA LANCE MD, Ot G47.3 0 SLEEP APNEA, UNSPECIFIED 12/08/2015 VERENA LANCE MD, Ot I12.9 HYPERTENSIVE CHRONIC KIDNEY DISEASE W ST 12/08/2015 VERENA LANCE MD, Ot I25.1 0 ATHSCL HEART DISEASE OF [place] CORONARY 12/08/2015 VERENA LANCE MD, Ot J44.9 CHRONIC OBSTRUCTIVE PULMONARY DISEASE, U 12/08/2015 VERENA LANCE MD, Ot 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 12/08/2015 VERENA LANCE MD, Ot M62.8 2 RHABDOMYOLYSIS 12/08/2015 VERENA LANCE MD, Ot N18.9 CHRONIC KIDNEY DISEASE, UNSPECIFIED 12/08/2015 VERENA LANEC MD, Ot N25.8 9 OTH DISORDERS RESULTING FROM IMPAIRED RE 12/08/2015 VERENA LANCE MD, Ot N39.0 URINARY TRACT INFECTION, SITE NOT SPECIF 12/08/2015 VERENA LANCE MD Ot Z68.3 4 BODY MASS INDEX (BMI) 34.0-34.9, ADULT 12/08/2015 VERENA LANCE MD Ot 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 12/08/2015 VERENA LANCE MD Ot Z87.8 91 PERSONAL HISTORY OF NICOTINE DEPENDENCE 02/19/2016 Ot 424.0 MITR AL VALVE DISORDER 02/19/2016 Ot 428.0 CARL ESTIVE HEART FAILURE NOS 02/19/2016 Ot 429.3 CARD IOMEGALY 02/19/2016 Ot 729.81 SWE LLING OF LIMB 02/19/2016 Ot 782.3 EDEMA 02/19/2016 Ot 787.91 DAYANNA RRHEA 02/19/2016 Ot V72.84 EXA M PRE- OPERATIVE NOS 02/19/2016 VANESSA CARRERA Ot 272.4 HYPERLIPIDEMIA NEC/NOS 02/19/2016 VANESSA CARRERA Ot 401.9 HYPERTENSION NOS 02/19/2016 VANESSA CARRERA Ot 414.00 CORON ATHEROSCLER NOS TYPE VESSEL, NATIV 02/19/2016 VANESSA CARRERA Ot 433.10 CAROTID ARTERY OCCLUSION W O CEREBRAL IN 02/19/2016 VANESSA CARRERA Ot 272.4 HYPERLIPIDEMIA NEC/NOS 02/19/2016 VANESSA CARRERA Ot 401.9 HYPERTENSION NOS 02/19/2016 VANESSA CARRERA Ot 414.00 CORON ATHEROSCLER NOS TYPE VESSEL, NATIV 02/19/2016 VANESSA CARRERA Ot 433.10 CAROTID ARTERY OCCLUSION W O CEREBRAL IN 02/19/2016 VANESSA CARRERA Ot 433.30 MULT BILTRAL ARTERY OCCLUSION WO CEREBRA 02/19/2016 VANESSA CARRERA Ot 496 CHR AIRWAY OBSTRUCT NEC 02/22/2016 JANESSA ROWAN MD Ot E11. 40 TYPE 2 DIABETES MELLITUS WITH DIABETIC N 02/22/2016 JANESSA ROWAN MD Ot E86. 0 DEHYDRATION 02/22/2016 JANESSA ROWAN MD Ot F17.210 NICOTINE DEPENDENCE, CIGARETTES, UNCOMPL 02/22/2016 JANESSA ROWAN MD Ot F32. 9 MAJOR DEPRESSIVE DISORDER, SINGLE EPISOD 02/22/2016 ANUM UP, JANESSA Sanchez Ot G47. 30 SLEEP APNEA, UNSPECIFIED 02/22/2016 JANESSA ROWAN MD Ot I10 ESSENTIAL (PRIMARY) HYPERTENSION 02/22/2016 JANESSA ROWAN MD Ot J20. 9 ACUTE BRONCHITIS, UNSPECIFIED 02/22/2016 JANESSA ROWAN MD Ot J30. 2 OTHER SEASONAL ALLERGIC RHINITIS 02/22/2016 JANESSA ROWAN MD Ot J44. 0 CHRONIC OBSTRUCTIVE PULMON DISEASE W ACU 02/22/2016 JANESSA ROWAN MD Ot J44. 1 CHRONIC OBSTRUCTIVE PULMONARY DISEASE W 02/22/2016 JANESSA ROWAN MD Ot K59. 09 OTHER CONSTIPATION 02/22/2016 JANESSA ROWAN MD Ot M19. 90 UNSPECIFIED OSTEOARTHRITIS, UNSPECIFIED 02/22/2016 JANESSA ROWAN MD Ot N17. 9 ACUTE KIDNEY FAILURE, UNSPECIFIED 02/22/2016 JANESSA ROWAN MD Ot R09. 02 HYPOXEMIA 02/22/2016 JANESSA ROWAN MD Ot R19. 7 DIARRHEA, UNSPECIFIED 02/22/2016 JANESSA ROWAN MD Ot R64 CACHEXIA 02/22/2016 JANESSA ROWAN MD Ot Z79. 4 SNF (CURRENT) USE OF INSULIN 02/24/2016 ALEENA LANCE MD Ot E11. 9 TYPE 2 DIABETES MELLITUS WITHOUT COMPLIC 02/24/2016 ALEENA LANCE MD Ot I10 ESSENTIAL (PRIMARY) HYPERTENSION 02/24/2016 ALEENA LANCE MD Ot I44. 4 LEFT ANTERIOR FASCICULAR BLOCK 02/24/2016 ALEENA LANCE MD Ot I45. 10 UNSPECIFIED RIGHT BUNDLE-BRANCH BLOCK 02/24/2016 ALEENA LANCE MD Ot J44. 9 CHRONIC OBSTRUCTIVE PULMONARY DISEASE, U 02/24/2016 ALEENA LANCE MD Ot J84. 10 PULMONARY FIBROSIS, UNSPECIFIED 02/24/2016 ALEENA LANCE MD Ot R07. 9 CHEST PAIN, UNSPECIFIED 02/24/2016 ALEENA LANCE MD Ot S22.32XK FRACTURE OF ONE RIB, LEFT SIDE, SUBS FOR 02/24/2016 ALEENA LANCE MD Ot Z79. 4 SNF (CURRENT) USE OF INSULIN 02/24/2016 ALEENA LANCE MD Ot Z79.899 OTHER SNF (CURRENT) DRUG THERAPY 02/25/2016 ALEENA LANCE MD A Ot E11. 9 TYPE 2 DIABETES MELLITUS WITHOUT COMPLIC 02/25/2016 ALEENA LANCE MD A Ot I10 ESSENTIAL (PRIMARY) HYPERTENSION 02/25/2016 ALEENA LANCE MD A Ot I44. 4 LEFT ANTERIOR FASCICULAR BLOCK 02/25/2016 ALEENA LANCE MD A Ot I45. 10 UNSPECIFIED RIGHT BUNDLE-BRANCH BLOCK 02/25/2016 ALEENA LANCE MD A Ot J44. 9 CHRONIC OBSTRUCTIVE PULMONARY DISEASE, U 02/25/2016 ALEENA LANCE MD A Ot J84. 10 PULMONARY FIBROSIS, UNSPECIFIED 02/25/2016 ALEENA LANCE MD A Ot R07. 9 CHEST PAIN, UNSPECIFIED 02/25/2016 ALEENA LANCE MD A Ot S22.32XK FRACTURE OF ONE RIB, LEFT SIDE, SUBS FOR 02/25/2016 ALEENA LANCE MD A Ot Z79. 4 SNF (CURRENT) USE OF INSULIN 02/25/2016 ALEENA LANCE MD A Ot Z79.899 OTHER SNF (CURRENT) DRUG THERAPY 02/29/2016 ALEENA LANCE MD A Ot E11. 9 TYPE 2 DIABETES MELLITUS WITHOUT COMPLIC 02/29/2016 ALEENA LANCE MD A Ot I10 ESSENTIAL (PRIMARY) HYPERTENSION 02/29/2016 ALEENA LANCE MD A Ot I44. 4 LEFT ANTERIOR FASCICULAR BLOCK 02/29/2016 TERRELL LANCE MDNT A Ot I45. 10 UNSPECIFIED RIGHT BUNDLE-BRANCH BLOCK 02/29/2016 ALEENA LANCE MD A Ot J44. 9 CHRONIC OBSTRUCTIVE PULMONARY DISEASE, U 02/29/2016 ALEENA LANCE MD A Ot J84. 10 PULMONARY FIBROSIS, UNSPECIFIED 02/29/2016 TERRELL LANCE MDNT A Ot R07. 9 CHEST PAIN, UNSPECIFIED 02/29/2016 ALEENA LANCE MD A Ot S22.32XK FRACTURE OF ONE RIB, LEFT SIDE, SUBS FOR 02/29/2016 ALEENA LANCE MD A Ot Z79. 4 SNF (CURRENT) USE OF INSULIN 02/29/2016 TERRELL LANCE MDNT A Ot Z79.899 OTHER HYDRAULIC CORRUGATING MACHINE OPERATOR (CURRENT) DRUG THERAPY 03/04/2016 VANNESSA MORRIS DISTRICT SERVICE MANAGER Ot J44.9 CHRONIC OBSTRUCTIVE PULMONARY DISEASE, U 03/04/2016 VANNESSA MORRISP Ot R06.02 SHORTNESS OF BREATH 03/04/2016 VANNESSA MORRISP Ot R53.83 OTHER FATIGUE 03/04/2016 VANNESSA MORRIS DISTRICT SERVICE MANAGER Ot Z79.82 SNF (CURRENT) USE OF ASPIRIN 03/04/2016 ALEXANDRAVANNESSA JosueP Ot Z79.899 OTHER HYDRAULIC CORRUGATING MACHINE OPERATOR (CURRENT) DRUG THERAPY 03/06/2016 VANNESSA MORRISP Ot J44.9 CHRONIC OBSTRUCTIVE PULMONARY DISEASE, U 03/06/2016 VANNESSA MORRISP Ot R06.02 SHORTNESS OF BREATH 03/06/2016 VANNESSA MORRIS DISTRICT SERVICE MANAGER Ot R53.83 OTHER FATIGUE 03/06/2016 VANNESSA MORRIS DISTRICT SERVICE MANAGER Ot Z79.82 HYDRAULIC CORRUGATING MACHINE OPERATOR (CURRENT) USE OF ASPIRIN 03/06/2016 ALEXANDRA VANNESSA DISTRICT SERVICE MANAGER Ot Z79.899 OTHER HYDRAULIC CORRUGATING MACHINE OPERATOR (CURRENT) DRUG THERAPY 03/07/2016 VANNESSA MORRISP Ot J44.9 CHRONIC OBSTRUCTIVE PULMONARY DISEASE, U 03/07/2016 VANNESSA MORRISP Ot R06.02 SHORTNESS OF BREATH 03/07/2016 VANNESSA MORRISP Ot R53.83 OTHER FATIGUE 03/07/2016 VANNESSA MORRISP Ot Z79.82 HYDRAULIC CORRUGATING MACHINE OPERATOR (CURRENT) USE OF ASPIRIN 03/07/2016 VANNESSA MORRISP Ot Z79.899 OTHER SNF (CURRENT) DRUG THERAPY 03/07/2016 Ot 424.0 MITR AL VALVE DISORDER 03/07/2016 Ot 428.0 CARL ESTIVE HEART FAILURE NOS 03/07/2016 Ot 429.3 CARD IOMEGALY 03/07/2016 Ot 729.81 SWE LLING OF LIMB 03/07/2016 Ot 782.3 EDEMA 03/07/2016 Ot 787.91 DAYANNA RRHEA 03/07/2016 Ot V72.84 EXA M PRE- OPERATIVE NOS 03/07/2016 VANESSA CARRERA Ot 272.4 HYPERLIPIDEMIA NEC/NOS 03/07/2016 VANESSA CARRERA Ot 401.9 HYPERTENSION NOS 03/07/2016 VANESSA CARRERA Ot 414.00 CORON ATHEROSCLER NOS TYPE VESSEL, NATIV 03/07/2016 VANESSA CARRERA Ot 433.10 CAROTID ARTERY OCCLUSION W O CEREBRAL IN 03/07/2016 VANESSA CARRERA Ot 272.4 HYPERLIPIDEMIA NEC/NOS 03/07/2016 VANESSA CARRERA Ot 401.9 HYPERTENSION NOS 03/07/2016 VANESSA CARRERA Ot 414.00 CORON ATHEROSCLER NOS TYPE VESSEL, NATIV 03/07/2016 VANESSA CARRERA Ot 433.10 CAROTID ARTERY OCCLUSION W O CEREBRAL IN 03/07/2016 VANESSA CARRERA Ot 433.30 MULT BILTRAL ARTERY OCCLUSION WO CEREBRA 03/07/2016 VANESSA CARRERA Ot 496 CHR AIRWAY OBSTRUCT NEC 03/09/2016 Ot 424.0 MITR AL VALVE DISORDER 03/09/2016 Ot 428.0 CARL ESTIVE HEART FAILURE NOS 03/09/2016 Ot 429.3 CARD IOMEGALY 03/09/2016 Ot 729.81 SWE LLING OF LIMB 03/09/2016 Ot 782.3 EDEMA 03/09/2016 Ot 787.91 DAYANNA RRHEA 03/09/2016 Ot V72.84 EXA M PRE- OPERATIVE NOS 03/09/2016 VANESSA CARRERA Ot 272.4 HYPERLIPIDEMIA NEC/NOS 03/09/2016 VANESSA CARRERA Ot 401.9 HYPERTENSION NOS 03/09/2016 VANESSA CARRERA Ot 414.00 CORON ATHEROSCLER NOS TYPE VESSEL, NATIV 03/09/2016 VANESSA CARRERA Ot 433.10 CAROTID ARTERY OCCLUSION W O CEREBRAL IN 03/09/2016 VANESSA CARRERA Ot 272.4 HYPERLIPIDEMIA NEC/NOS 03/09/2016 VANESSA CARRERA Ot 401.9 HYPERTENSION NOS 03/09/2016 VANESSA CARRERA Ot 414.00 CORON ATHEROSCLER NOS TYPE VESSEL, NATIV 03/09/2016 VANESSA CARRERA Ot 433.10 CAROTID ARTERY OCCLUSION W O CEREBRAL IN 03/09/2016 VANESSA CARRERA Ot 433.30 MULT BILTRAL ARTERY OCCLUSION WO CEREBRA 03/09/2016 VANESSA CARRERA Ot 496 CHR AIRWAY OBSTRUCT NEC 03/10/2016 VANNESSA MORRIS Ot J44.9 CHRONIC OBSTRUCTIVE PULMONARY DISEASE, U 03/10/2016 VANNESSA MORRIS AMY Ot R06.02 SHORTNESS OF BREATH 03/10/2016 VANNESSA MORRIS AMY Ot R53.83 OTHER FATIGUE 03/10/2016 VANNESSA MORRISP Ot Z79.82 SNF (CURRENT) USE OF ASPIRIN 03/10/2016 VANNESSA MORRIS AMY Ot 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 9 CHEST PAIN, UNSPECIFIED 03/10/2016 SILAS HAINES MD Ot E78. 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 9 CHEST PAIN, UNSPECIFIED 03/20/2016 TREVOR MCCABE DO Ot E11.9 TYPE 2 DIABETES MELLITUS WITHOUT COMPLIC 03/20/2016 TREVOR MCCABE DO Ot I12.9 HYPERTENSIVE CHRONIC KIDNEY DISEASE W ST 03/20/2016 TREVOR MCCABE DO Ot N18.9 CHRONIC KIDNEY DISEASE, UNSPECIFIED 03/20/2016 TREVOR MCCABE DO Ot R50.9 FEVER, UNSPECIFIED 03/20/2016 TREVOR MCCABE DO Ot R53.1 WEAKNESS 03/20/2016 TREVOR MCCABE DO Ot Z79.4 SNF (CURRENT) USE OF INSULIN 03/20/2016 TREVOR MCCABE DO Ot Z79.899 OTHER SNF (CURRENT) DRUG THERAPY 03/20/2016 TREVOR MCCABE DO Ot Z87.891 PERSONAL HISTORY OF NICOTINE DEPENDENCE 03/21/2016 TREVOR MCCABE DO Ot E11.9 TYPE 2 DIABETES MELLITUS WITHOUT COMPLIC 03/21/2016 TREVOR MCCABE DO Ot I12.9 HYPERTENSIVE CHRONIC KIDNEY DISEASE W ST 03/21/2016 TREVOR MCCABE DO Ot N18.9 CHRONIC KIDNEY DISEASE, UNSPECIFIED 03/21/2016 TREVOR MCCABE DO Ot R50.9 FEVER, UNSPECIFIED 03/21/2016 TREVOR MCCABE DO Ot R53.1 WEAKNESS 03/21/2016 TREVOR MCCABE DO Ot Z79.4 SNF (CURRENT) USE OF INSULIN 03/21/2016 TREVOR MCCABE DO Ot Z79.899 OTHER SNF (CURRENT) DRUG THERAPY 03/21/2016 TREVOR MCCABE DO Ot Z87.891 PERSONAL HISTORY OF NICOTINE DEPENDENCE 03/23/2016 SILAS HAINES MD Ot E11. 9 TYPE 2 DIABETES MELLITUS WITHOUT COMPLIC 03/23/2016 SILAS HAINES MD Ot E78. 5 HYPERLIPIDEMIA, UNSPECIFIED 03/23/2016 SILAS HAINES MD Ot I10 ESSENTIAL (PRIMARY) HYPERTENSION 03/23/2016 SILAS HAINES MD Ot I25. 10 ATHSCL HEART DISEASE OF [place] CORONARY 03/23/2016 SILAS HAINES MD Ot I25. 84 CORONARY ATHEROSCLEROSIS DUE TO CALCIFIE 03/23/2016 SILAS HAINES MD, Ot J44. 9 CHRONIC OBSTRUCTIVE PULMONARY DISEASE, U 03/23/2016 SILAS HAINES MD Ot K21. 9 GASTRO-ESOPHAGEAL REFLUX DISEASE WITHOUT 03/23/2016 SILAS HAINES MD Ot R94. 39 ABNORMAL RESULT OF OTHER CARDIOVASCULAR 03/23/2016 SILAS HAINES MD, Ot Z79. 4 SNF (CURRENT) USE OF INSULIN 03/23/2016 SILAS HAINES MD Ot Z79.899 OTHER HYDRAULIC CORRUGATING MACHINE OPERATOR (CURRENT) DRUG THERAPY 03/23/2016 SILAS HAINES MD Ot Z87.891 PERSONAL HISTORY OF NICOTINE DEPENDENCE 03/29/2016 ISLAS HAINES MD Ot E78. 2 MIXED HYPERLIPIDEMIA 03/29/2016 SILAS HAINES MD Ot F17.200 NICOTINE DEPENDENCE, UNSPECIFIED, UNCOMP 03/29/2016 SILAS HAINES MD Ot I10 ESSENTIAL (PRIMARY) HYPERTENSION 03/29/2016 SILAS HAINES MD Ot I25. 10 ATHSCL HEART DISEASE OF [place] CORONARY 03/29/2016 SILAS HAINES MD Ot R07. 9 CHEST PAIN, UNSPECIFIED 04/04/2016 SILAS HAINES MD Ot E78. 2 MIXED HYPERLIPIDEMIA 04/04/2016 SILAS HAINES MD Ot F17.200 NICOTINE DEPENDENCE, UNSPECIFIED, UNCOMP 04/04/2016 SILAS HAINES MD Ot I10 ESSENTIAL (PRIMARY) HYPERTENSION 04/04/2016 SILAS HAINES MD Ot I25. 10 ATHSCL HEART DISEASE OF [place] CORONARY 04/04/2016 SILAS HAINES MD Ot R07. 9 CHEST PAIN, UNSPECIFIED 04/07/2016 JOANNA ANDREW MD Ot E11.9 TYPE 2 DIABETES MELLITUS WITHOUT COMPLIC 04/07/2016 JOANNA ANDREW MD Ot F17.210 NICOTINE DEPENDENCE, CIGARETTES, UNCOMPL 04/07/2016 JOANNA ANDREW MD Ot I10 ESSENTIAL (PRIMARY) HYPERTENSION 04/07/2016 JOANNA ANDREW MD Ot I44.0 ATRIOVENTRICULAR BLOCK, FIRST DEGREE 04/07/2016 JOANNA ANDREW MD Ot I45.10 UNSPECIFIED RIGHT BUNDLE-BRANCH BLOCK 04/07/2016 JOANNA ANDREW MD Ot I51.7 CARDIOMEGALY 04/07/2016 JOANNA ANDREW MD Ot J44.9 CHRONIC OBSTRUCTIVE PULMONARY DISEASE, U 04/07/2016 JOANNA ANDREW MD Ot R51 HEADACHE 04/07/2016 JOANNA ANDREW MD Ot Z79.82 HYDRAULIC CORRUGATING MACHINE OPERATOR (CURRENT) USE OF ASPIRIN 04/07/2016 JOANNA ANDREW MD Ot Z79.899 OTHER SNF (CURRENT) DRUG THERAPY 04/08/2016 JANESSA SMITH MD Ot E11. 9 TYPE 2 DIABETES MELLITUS WITHOUT COMPLIC 04/08/2016 JANESSA SMITH MD Ot F17.210 NICOTINE DEPENDENCE, CIGARETTES, UNCOMPL 04/08/2016 JANESSA SMITH MD Ot I10 ESSENTIAL (PRIMARY) HYPERTENSION 04/08/2016 JANESSA SMITH MD Ot J44. 9 CHRONIC OBSTRUCTIVE PULMONARY DISEASE, U 04/08/2016 JANESSA SMITH MD Ot Z79. 4 SNF (CURRENT) USE OF INSULIN 04/08/2016 JANESSA SMITH MD Ot Z79. 82 SNF (CURRENT) USE OF ASPIRIN 04/08/2016 JANESSA SMITH MD Ot Z79.899 OTHER SNF (CURRENT) DRUG THERAPY 04/08/2016 JANESSA SMITH MD Ot Z95. 5 PRESENCE OF CORONARY ANGIOPLASTY IMPLANT 04/10/2016 JOANNA ANDREW MD Ot E11.9 TYPE 2 DIABETES MELLITUS WITHOUT COMPLIC 04/10/2016 JOANNA ANDREW MD Ot F17.210 NICOTINE DEPENDENCE, CIGARETTES, UNCOMPL 04/10/2016 JOANNA ANDREW MD Ot I10 ESSENTIAL (PRIMARY) HYPERTENSION 04/10/2016 JOANNA ANDREW MD Ot I44.0 ATRIOVENTRICULAR BLOCK, FIRST DEGREE 04/10/2016 JOANNA ANDREW MD Ot I45.10 UNSPECIFIED RIGHT BUNDLE-BRANCH BLOCK 04/10/2016 JOANNA ANDREW MD Ot I51.7 CARDIOMEGALY 04/10/2016 JOANNA ANDREW MD, Ot J44.9 CHRONIC OBSTRUCTIVE PULMONARY DISEASE, U 04/10/2016 JOANNA ANDREW MD Ot R51 HEADACHE 04/10/2016 JOANNA ANDREW MD Ot Z79.82 HYDRAULIC CORRUGATING MACHINE OPERATOR (CURRENT) USE OF ASPIRIN 04/10/2016 JOANNA ANDREW MD Ot Z79.899 OTHER HYDRAULIC CORRUGATING MACHINE OPERATOR (CURRENT) DRUG THERAPY 04/10/2016 JANESSA SMITH MD Ot E11. 9 TYPE 2 DIABETES MELLITUS WITHOUT COMPLIC 04/10/2016 JANESSA SMITH MD Ot F17.210 NICOTINE DEPENDENCE, CIGARETTES, UNCOMPL 04/10/2016 JANESSA SMITH MD Ot I10 ESSENTIAL (PRIMARY) HYPERTENSION 04/10/2016 JANESSA SMITH MD, Ot J44. 9 CHRONIC OBSTRUCTIVE PULMONARY DISEASE, U 04/10/2016 JANESSA SMITH MD Ot Z79. 4 SNF (CURRENT) USE OF INSULIN 04/10/2016 JANESSA SMITH MD Ot Z79. 82 SNF (CURRENT) USE OF ASPIRIN 04/10/2016 JANESSA SMITH MD Ot Z79.899 OTHER HYDRAULIC CORRUGATING MACHINE OPERATOR (CURRENT) DRUG THERAPY 04/10/2016 JANESSA SMITH MD Ot Z95. 5 PRESENCE OF CORONARY ANGIOPLASTY IMPLANT 04/14/2016 SILAS HAINES MD Ot E78. 2 MIXED HYPERLIPIDEMIA 04/14/2016 SILAS HAINES MD Ot F17.200 NICOTINE DEPENDENCE, UNSPECIFIED, UNCOMP 04/14/2016 SILAS HAINES MD Ot I10 ESSENTIAL (PRIMARY) HYPERTENSION 04/14/2016 SILAS HAINES MD Ot I25. 10 ATHSCL HEART DISEASE OF [place] CORONARY 04/14/2016 SILAS HAINES MD Ot R07. 9 CHEST PAIN, UNSPECIFIED 04/14/2016 SILAS HAINES MD Ot E78. 2 MIXED HYPERLIPIDEMIA 04/14/2016 SILAS HAINES MD Ot F17.200 NICOTINE DEPENDENCE, UNSPECIFIED, UNCOMP 04/14/2016 SILAS HAINES MD Ot I10 ESSENTIAL (PRIMARY) HYPERTENSION 04/14/2016 SILAS HAINES MD Ot I25. 10 ATHSCL HEART DISEASE OF [place] CORONARY 04/14/2016 SILAS HAINES MD Ot R07. 9 CHEST PAIN, UNSPECIFIED 04/20/2016 SILAS HAINES MD Ot E11. 9 TYPE 2 DIABETES MELLITUS WITHOUT COMPLIC 04/20/2016 SILAS HAINES MD Ot E78. 5 HYPERLIPIDEMIA, UNSPECIFIED 04/20/2016 SILAS HAINES MD Ot I10 ESSENTIAL (PRIMARY) HYPERTENSION 04/20/2016 SILAS HAINES MD Ot I25. 10 ATHSCL HEART DISEASE OF [place] CORONARY 04/20/2016 SILAS HAINES MD Ot I25. 84 CORONARY ATHEROSCLEROSIS DUE TO [place]CIF[place] 04/20/2016 SILAS HAINES MD Ot J44. 9 CHRONIC OBSTRUCTIVE PULMONARY DISEASE, U 04/20/2016 SILAS HAINES MD Ot K21. 9 GASTRO-ESOPHAGEAL REFLUX DISEASE WITHOUT 04/20/2016 SILAS HAINES MD Ot R94. 39 ABNORMAL RESULT OF OTHER CARDIOVASCULAR 04/20/2016 SILAS HAINES MD Ot Z79. 4 HYDRAULIC CORRUGATING MACHINE OPERATOR (CURRENT) USE OF INSULIN 04/20/2016 SILAS HAINES MD Ot Z79.899 OTHER SNF (CURRENT) DRUG THERAPY 04/20/2016 SILAS HAINES MD Ot Z87.891 PERSONAL HISTORY OF NICOTINE DEPENDENCE 04/22/2016 SILAS HAINES MD Ot E11. 9 TYPE 2 DIABETES MELLITUS WITHOUT COMPLIC 04/22/2016 SILAS HAINES MD Ot E78. 5 HYPERLIPIDEMIA, UNSPECIFIED 04/22/2016 SILAS HAINES MD Ot I10 ESSENTIAL (PRIMARY) HYPERTENSION 04/22/2016 SILAS HAINES MD Ot I25. 10 ATHSCL HEART DISEASE OF [place] CORONARY 04/22/2016 SILAS HAINES MD Ot I25. 84 CORONARY ATHEROSCLEROSIS DUE TO [place]CIF[place] 04/22/2016 SILAS HAINES MD Ot J44. 9 CHRONIC OBSTRUCTIVE PULMONARY DISEASE, U 04/22/2016 SILAS HAINES MD Ot K21. 9 GASTRO-ESOPHAGEAL REFLUX DISEASE WITHOUT 04/22/2016 SILAS HAINES MD Ot R94. 39 ABNORMAL RESULT OF OTHER CARDIOVASCULAR 04/22/2016 SILAS HAINES MD Ot Z79. 4 SNF (CURRENT) USE OF INSULIN 04/22/2016 SILAS HAINES MD Ot Z79.899 OTHER SNF (CURRENT) DRUG THERAPY 04/22/2016 SILAS HAINES MD Ot Z87.891 PERSONAL HISTORY OF NICOTINE DEPENDENCE 04/28/2016 JOANNA ANDREW MD Ot E11.9 TYPE 2 DIABETES MELLITUS WITHOUT COMPLIC 04/28/2016 JOANNA ANDREW MD, Ot I10 ESSENTIAL (PRIMARY) HYPERTENSION 04/28/2016 JOANNA ANDREW MD, Ot J44.0 CHRONIC OBSTRUCTIVE PULMON DISEASE W ACU 04/28/2016 JOANNA ANDREW MD Ot R06.02 SHORTNESS OF BREATH 04/28/2016 JOANNA ANDREW MD, Ot Z79.4 SNF (CURRENT) USE OF INSULIN 04/28/2016 JOANAN ANDREW MD, Ot Z79.82 HYDRAULIC CORRUGATING MACHINE OPERATOR (CURRENT) USE OF ASPIRIN 04/28/2016 JOANNA ANDREW MD, Ot Z79.899 OTHER HYDRAULIC CORRUGATING MACHINE OPERATOR (CURRENT) DRUG THERAPY 04/28/2016 JOANNA ANDREW MD, Ot E11.9 TYPE 2 DIABETES MELLITUS WITHOUT COMPLIC 04/28/2016 JOANNA ANDREW MD Ot I10 ESSENTIAL (PRIMARY) HYPERTENSION 04/28/2016 JOANNA ANDREW MD, Ot J44.0 CHRONIC OBSTRUCTIVE PULMON DISEASE W ACU 04/28/2016 JOANNA ANDREW MD Ot R06.02 SHORTNESS OF BREATH 04/28/2016 JOANNA ANDREW MD Ot Z79.4 SNF (CURRENT) USE OF INSULIN 04/28/2016 JOANNA ANDREW MD Ot Z79.82 HYDRAULIC CORRUGATING MACHINE OPERATOR (CURRENT) USE OF ASPIRIN 04/28/2016 JOANNA ANDREW MD, Ot Z79.899 OTHER SNF (CURRENT) DRUG THERAPY 05/15/2016 YANCY UP, SILAS Hurt Ot G47. 33 OBSTRUCTIVE SLEEP APNEA (ADULT) (PEDIATR 06/14/2016 Ot 424.0 MITR AL VALVE DISORDER 06/14/2016 Ot 428.0 CARL ESTIVE HEART FAILURE NOS 06/14/2016 Ot 429.3 CARD IOMEGALY 06/14/2016 Ot 729.81 SWE LLING OF LIMB 06/14/2016 Ot 782.3 EDEMA 06/14/2016 Ot 787.91 DAYANNA RRHEA 06/14/2016 Ot V72.84 EXA M PRE- OPERATIVE NOS 06/14/2016 VANESSA CARRERA Ot 272.4 HYPERLIPIDEMIA NEC/NOS 06/14/2016 VANESSA CARRERA Ot 401.9 HYPERTENSION NOS 06/14/2016 VANESSA CARRERA Ot 414.00 CORON ATHEROSCLER NOS TYPE VESSEL, NATIV 06/14/2016 VANESSA CARRERA Ot 433.10 CAROTID ARTERY OCCLUSION W O CEREBRAL IN 06/14/2016 VANESSA CARRERA Ot 272.4 HYPERLIPIDEMIA NEC/NOS 06/14/2016 VANESSA CARRERA Ot 401.9 HYPERTENSION NOS 06/14/2016 VANESSA CARRERA Ot 414.00 CORON ATHEROSCLER NOS TYPE VESSEL, NATIV 06/14/2016 VANESSA CARRERA Ot 433.10 CAROTID ARTERY OCCLUSION W O CEREBRAL IN 06/14/2016 VANESSA CARRERA Ot 433.30 MULT BILTRAL ARTERY OCCLUSION WO CEREBRA 06/14/2016 VANESSA CARRERA Ot 496 CHR AIRWAY OBSTRUCT NEC 06/14/2016 SILAS HAINES MD Ot E78. 2 MIXED HYPERLIPIDEMIA 06/14/2016 SILAS HAINES MD Ot F17.200 NICOTINE DEPENDENCE, UNSPECIFIED, UNCOMP 06/14/2016 SILAS HAINES MD Ot I10 ESSENTIAL (PRIMARY) HYPERTENSION 06/14/2016 SILAS HAINES MD Ot I25. 10 ATHSCL HEART DISEASE OF [place] CORONARY 06/14/2016 SILAS HAINES MD Ot R07. 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 10 ATHSCL HEART DISEASE OF [place] CORONARY 06/14/2016 SILAS HAINES MD Ot R07. 9 CHEST PAIN, UNSPECIFIED 06/14/2016 SILAS HAINES MD Ot G47. 33 OBSTRUCTIVE SLEEP APNEA (ADULT) (PEDIATR 06/15/2016 SILAS HAINES MD Ot G47. 33 OBSTRUCTIVE SLEEP APNEA (ADULT) (PEDIATR 06/15/2016 SILAS HAINES MD Ot G47. 33 OBSTRUCTIVE SLEEP APNEA (ADULT) (PEDIATR 07/26/2016 ALFRED BELL MD, Ot E11 .9 TYPE 2 DIABETES MELLITUS WITHOUT COMPLIC 07/26/2016 ALFRED BELL MD, Ot E87 .1 HYPO-OSMOLALITY AND HYPONATREMIA 07/26/2016 ALFRED BELL MD, Ot G47.30 SLEEP APNEA, UNSPECIFIED 07/26/2016 ALFRED BELL MD Ot I10 ESSENTIAL (PRIMARY) HYPERTENSION 07/26/2016 ALFRED BELL MD, Ot J44 .9 CHRONIC OBSTRUCTIVE PULMONARY DISEASE, U 07/26/2016 ALFRED BELL MD, Ot K21 .9 GASTRO-ESOPHAGEAL REFLUX DISEASE WITHOUT 07/26/2016 ALFRED BELL MD, Ot N39 .0 URINARY TRACT INFECTION, SITE NOT SPECIF 07/26/2016 ALFRED BELL MD, Ot Z79 .4 SNF (CURRENT) USE OF INSULIN 07/26/2016 ALFRED BELL MD, Ot Z91.81 HISTORY OF FALLING 07/26/2016 ALFRED BELL MD, Ot Z95 .5 PRESENCE OF CORONARY ANGIOPLASTY IMPLANT 08/25/2016 TREVOR MCCABE DO, Ot E11.9 TYPE 2 DIABETES MELLITUS WITHOUT COMPLIC 08/25/2016 TREVOR MCCABE DO, Ot I1 0 ESSENTIAL (PRIMARY) HYPERTENSION 08/25/2016 TREVOR CMCABE DO, Ot J44.9 CHRONIC OBSTRUCTIVE PULMONARY DISEASE, U 08/25/2016 TREVOR MCCABE DO, Ot N30.91 CYSTITIS, UNSPECIFIED WITH HEMATURIA 08/25/2016 TREVOR MCCABE DO, Ot R31.9 HEMATURIA, UNSPECIFIED 08/25/2016 TREVOR MCCABE DO, Ot 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 08/25/2016 TREVOR MCCABE DO, Ot Z79.82 HYDRAULIC CORRUGATING MACHINE OPERATOR (CURRENT) USE OF ASPIRIN 08/25/2016 TREVOR MCCABE DO, Ot Z79.899 OTHER SNF (CURRENT) DRUG THERAPY 08/25/2016 TREVOR MCCABE DO, Ot Z95.5 PRESENCE OF CORONARY ANGIOPLASTY IMPLANT 08/28/2016 TREVOR MCCABE DO, Ot E11.9 TYPE 2 DIABETES MELLITUS WITHOUT COMPLIC 08/28/2016 TREVOR MCCABE DO, Ot I1 0 ESSENTIAL (PRIMARY) HYPERTENSION 08/28/2016 TREVOR MCCABE DO, Ot J44.9 CHRONIC OBSTRUCTIVE PULMONARY DISEASE, U 08/28/2016 TREVOR MCCABE DO Ot N30.91 CYSTITIS, UNSPECIFIED WITH HEMATURIA 08/28/2016 TREVOR MCCABE DO, Ot R31.9 HEMATURIA, UNSPECIFIED 08/28/2016 TREVOR MCCABE DO Ot Z79.4 SNF (CURRENT) USE OF INSULIN 08/28/2016 TREVOR MCCABE DO Ot Z79.82 HYDRAULIC CORRUGATING MACHINE OPERATOR (CURRENT) USE OF ASPIRIN 08/28/2016 TREVOR MCCABE DO, Ot Z79.899 OTHER HYDRAULIC CORRUGATING MACHINE OPERATOR (CURRENT) DRUG THERAPY 08/28/2016 TREVOR MCCABE DO Ot Z95.5 PRESENCE OF CORONARY ANGIOPLASTY IMPLANT 10/01/2016 LACHELLE UP, JOHAN Basurto Ot N13.3 0 UNSPECIFIED HYDRONEPHROSIS 10/01/2016 LACHELLE UP, JOHAN Basurto Ot R31.9 HEMATURIA, UNSPECIFIED 10/03/2016 LACHELLE UP, JOHAN Basurto Ot N13.3 0 UNSPECIFIED HYDRONEPHROSIS 10/03/2016 LACHELLE UP, JOHAN Basurto Ot R31.9 HEMATURIA, UNSPECIFIED 10/03/2016 LACHELLE UP, JOHAN Basurto Ot N13.3 0 UNSPECIFIED HYDRONEPHROSIS 10/03/2016 LACHELLE UP, JOHAN Basurto Ot R31.9 HEMATURIA, UNSPECIFIED 10/04/2016 LACHELLE UP, JOHAN Basurto Ot N13.3 0 UNSPECIFIED HYDRONEPHROSIS 10/04/2016 LACHELLE UP, JOHAN Basurto Ot R31.9 HEMATURIA, UNSPECIFIED 10/06/2016 LACHELLE UP, JOHAN Basurto Ot N13.3 0 UNSPECIFIED HYDRONEPHROSIS 10/06/2016 LACHELLE UP, JOHAN Basurto Ot R31.9 HEMATURIA, UNSPECIFIED 10/11/2016 Ot 424.0 MITR AL VALVE DISORDER 10/11/2016 Ot 428.0 CARL ESTIVE HEART FAILURE NOS 10/11/2016 Ot 429.3 CARD IOMEGALY 10/11/2016 Ot 729.81 SWE LLING OF LIMB 10/11/2016 Ot 782.3 EDEMA 10/11/2016 Ot 787.91 DAYANNA RRHEA 10/11/2016 Ot V72.84 EXA M PRE- OPERATIVE NOS 10/11/2016 CHARLIE RUBIO, VANESSA Montoya Ot 272.4 HYPERLIPIDEMIA NEC/NOS 10/11/2016 VANESSA CARRERA Ot 401.9 HYPERTENSION NOS 10/11/2016 VANESSA CARRERA Ot 414.00 CORON ATHEROSCLER NOS TYPE VESSEL, NATIV 10/11/2016 VANESSA CARRERA Ot 433.10 CAROTID ARTERY OCCLUSION W O CEREBRAL IN 10/11/2016 VANESSA CARRERA Ot 272.4 HYPERLIPIDEMIA NEC/NOS 10/11/2016 VANESSA CARRERA Ot 401.9 HYPERTENSION NOS 10/11/2016 VANESSA CARRERA Ot 414.00 CORON ATHEROSCLER NOS TYPE VESSEL, NATIV 10/11/2016 VANESSA CARRERA Ot 433.10 CAROTID ARTERY OCCLUSION W O CEREBRAL IN 10/11/2016 VANESSA CARRERA Ot 433.30 MULT BILTRAL ARTERY OCCLUSION WO CEREBRA 10/11/2016 VANESSA CARRERA Ot 496 CHR AIRWAY OBSTRUCT NEC 10/11/2016 SILAS HAINES MD Ot E78. 2 MIXED HYPERLIPIDEMIA 10/11/2016 SILAS HAINES MD Ot F17.200 NICOTINE DEPENDENCE, UNSPECIFIED, UNCOMP 10/11/2016 SILAS HAINES MD Ot I10 ESSENTIAL (PRIMARY) HYPERTENSION 10/11/2016 SILAS HAINES MD Ot I25. 10 ATHSCL HEART DISEASE OF [place] CORONARY 10/11/2016 SILAS HAINES MD Ot R07. 9 CHEST PAIN, UNSPECIFIED 10/11/2016 SILAS HAINES MD Ot E78. 2 MIXED HYPERLIPIDEMIA 10/11/2016 SILAS HAINES MD Ot F17.200 NICOTINE DEPENDENCE, UNSPECIFIED, UNCOMP 10/11/2016 SILAS HAINES MD Ot I10 ESSENTIAL (PRIMARY) HYPERTENSION 10/11/2016 SILAS HAINES MD Ot I25. 10 ATHSCL HEART DISEASE OF [place] CORONARY 10/11/2016 SILAS HAINES MD Ot R07. 9 CHEST PAIN, UNSPECIFIED 10/11/2016 JOHAN LAROSE MD Ot N13.3 0 UNSPECIFIED HYDRONEPHROSIS 10/11/2016 JOHAN LAROSE MD Ot R31.9 HEMATURIA, UNSPECIFIED 10/19/2016 JOHAN LAROSE MD, Ot N13.3 0 UNSPECIFIED HYDRONEPHROSIS 10/19/2016 JOHAN LAROSE MD, Ot R31.9 HEMATURIA, UNSPECIFIED 10/24/2016 JOHAN LAROSE MD, Ot N31.9 NEUROMUSCULAR DYSFUNCTION OF BLADDER, UN 10/24/2016 JOHAN LAROSE MD, Ot N40.1 BENIGN PROSTATIC HYPERPLASIA WITH LOWER 10/24/2016 JOHAN LAROSE MD, Ot R33.9 RETENTION OF URINE, UNSPECIFIED 10/24/2016 JOHAN LAROSE MD Ot Z01.8 10 ENCOUNTER FOR PREPROCEDURAL CARDIOVASCUL 10/24/2016 JOHAN LAROSE MD, Ot Z01.8 11 ENCOUNTER FOR PREPROCEDURAL RESPIRATORY 10/24/2016 JOHAN LAROSE MD Ot Z01.8 12 ENCOUNTER FOR PREPROCEDURAL LABORATORY E 10/24/2016 JOHAN LAROSE MD, Ot Z01.8 18 ENCOUNTER FOR OTHER PREPROCEDURAL EXAMIN 10/24/2016 JOHAN LAROSE MD Ot Z11.2 ENCOUNTER FOR SCREENING FOR OTHER BACTER 10/24/2016 JOHAN LAROSE MD, Ot Z79.8 2 SNF (CURRENT) USE OF ASPIRIN 11/02/2016 JOHAN LAROSE MD Ot E11.9 TYPE 2 DIABETES MELLITUS WITHOUT COMPLIC 11/02/2016 JOHAN LAROSE MD, Ot E78.5 HYPERLIPIDEMIA, UNSPECIFIED 11/02/2016 JOHAN LAROSE MD, Ot F32.9 MAJOR DEPRESSIVE DISORDER, SINGLE EPISOD 11/02/2016 JOHAN LAROSE MD, Ot G47.3 3 OBSTRUCTIVE SLEEP APNEA (ADULT) (PEDIATR 11/02/2016 JOHAN LAROSE MD, Ot I10 ESSENTIAL (PRIMARY) HYPERTENSION 11/02/2016 JOHAN LAROSE MD, Ot I25.1 0 ATHSCL HEART DISEASE OF [place] CORONARY 11/02/2016 JOHAN LAROSE MD, Ot J44.9 CHRONIC OBSTRUCTIVE PULMONARY DISEASE, U 11/02/2016 JOHAN LAROSE MD, Ot K21.9 GASTRO-ESOPHAGEAL REFLUX DISEASE WITHOUT 11/02/2016 JOHAN LAROSE MD, Ot N31.9 NEUROMUSCULAR DYSFUNCTION OF BLADDER, UN 11/02/2016 JOHAN LAROSE MD, Ot N40.1 BENIGN PROSTATIC HYPERPLASIA WITH LOWER 11/02/2016 JOHAN LAROSE MD, Ot R33.8 OTHER RETENTION OF URINE 11/02/2016 JOHAN LAROSE MD, Ot 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 11/02/2016 JOHAN LAROSE MD, Ot Z79.8 99 OTHER SNF (CURRENT) DRUG THERAPY 11/02/2016 JOHAN LAROSE MD, Ot Z95.5 PRESENCE OF CORONARY ANGIOPLASTY IMPLANT 11/02/2016 JOHAN LAROSE MD Ot E11.9 TYPE 2 DIABETES MELLITUS WITHOUT COMPLIC 11/02/2016 JOHAN LAROSE MD, Ot E78.5 HYPERLIPIDEMIA, UNSPECIFIED 11/02/2016 JOHAN LAROSE MD, Ot F32.9 MAJOR DEPRESSIVE DISORDER, SINGLE EPISOD 11/02/2016 JOHAN LAROSE MD, Ot G47.3 3 OBSTRUCTIVE SLEEP APNEA (ADULT) (PEDIATR 11/02/2016 JOHAN LAROSE MD, Ot I10 ESSENTIAL (PRIMARY) HYPERTENSION 11/02/2016 JOHAN LAROSE MD, Ot I25.1 0 ATHSCL HEART DISEASE OF [place] CORONARY 11/02/2016 JOHAN LAROSE MD, Ot J44.9 CHRONIC OBSTRUCTIVE PULMONARY DISEASE, U 11/02/2016 JOHAN LAROSE MD, Ot K21.9 GASTRO-ESOPHAGEAL REFLUX DISEASE WITHOUT 11/02/2016 JOHAN LAROSE MD, Ot N31.9 NEUROMUSCULAR DYSFUNCTION OF BLADDER, UN 11/02/2016 JOHAN LAROSE MD, Ot N40.1 BENIGN PROSTATIC HYPERPLASIA WITH LOWER 11/02/2016 JOHAN LAROSE MD, Ot R33.8 OTHER RETENTION OF URINE 11/02/2016 JOHAN LAROSE MD, Ot Z79.4 SNF (CURRENT) USE OF INSULIN 11/02/2016 JOHAN LAROSE MD, Ot Z79.8 99 OTHER HYDRAULIC CORRUGATING MACHINE OPERATOR (CURRENT) DRUG THERAPY 11/02/2016 JOHAN LAROSE MD, Ot Z95.5 PRESENCE OF CORONARY ANGIOPLASTY IMPLANT 11/05/2016 AMANDA WOODSON DO Ot E11.40 TYPE 2 DIABETES MELLITUS WITH DIABETIC N 11/05/2016 AMANDA WOODSON DO Ot F03.90 UNSPECIFIED DEMENTIA WITHOUT BEHAVIORAL 11/05/2016 KANDICE DO, AMANDA K Ot F17.210 NICOTINE DEPENDENCE, CIGARETTES, UNCOMPL 11/05/2016 JOSE C WOODSON DOA Jan Ot F32.9 MAJOR DEPRESSIVE DISORDER, SINGLE EPISOD 11/05/2016 AMANDA WOODSON DO Ot I10 ESSENTIAL (PRIMARY) HYPERTENSION 11/05/2016 JOSE C WOODSON DOA Jan Ot I25.10 ATHSCL HEART DISEASE OF [place] CORONARY 11/05/2016 AMANDA WOODSON DO Ot J42 UNSPECIFIED CHRONIC BRONCHITIS 11/05/2016 KANDICE AMANDA PACHECO Ot J44.9 CHRONIC OBSTRUCTIVE PULMONARY DISEASE, U 11/05/2016 KANDICE AMANDA PACHECO Ot K21.9 GASTRO-ESOPHAGEAL REFLUX DISEASE WITHOUT 11/05/2016 KANDICE JOSE C PACHECOA K Ot L89.319 PRESSURE ULCER OF RIGHT BUTTOCK, UNSPECI 11/05/2016 KANDICE AMANDA PACHECO Ot L89.329 PRESSURE ULCER OF LEFT BUTTOCK, UNSPECIF 11/05/2016 JOSE C WOODSON DOA Jan Ot M19.90 UNSPECIFIED OSTEOARTHRITIS, UNSPECIFIED 11/05/2016 AMANDA WOODSON DO Ot N39.0 URINARY TRACT INFECTION, SITE NOT SPECIF 11/05/2016 JOSE C WOODSON DOA K Ot N40.1 BENIGN PROSTATIC HYPERPLASIA WITH LOWER 11/05/2016 JOSE C WOODSON DOA Jan Ot R60.0 LOCALIZED EDEMA 11/05/2016 JOSE C WOODSON DOA K Ot T83.098 A [facility] COMPL OF OTHER URINARY CATHETER, IN 11/05/2016 JOSE C WOODSON DOA K Ot 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 11/05/2016 JOSE C WOODSON DOA K Ot Z90.79 ACQUIRED ABSENCE OF OTHER GENITAL ORGAN( 11/05/2016 KANDICE DO AMANDA K Ot Z95.5 PRESENCE OF CORONARY ANGIOPLASTY IMPLANT 11/05/2016 KANDICE JOSE C PACHECOA Jan Ot Z96.0 PRESENCE OF UROGENITAL IMPLANTS 11/09/2016 AMANDA WOODSON DO Ot E11.40 TYPE 2 DIABETES MELLITUS WITH DIABETIC N 11/09/2016 KANDICE PACHECO AMANDA K Ot F03.90 UNSPECIFIED DEMENTIA WITHOUT BEHAVIORAL 11/09/2016 KANDICE JOSE C PACHECOA K Ot F17.210 NICOTINE DEPENDENCE, CIGARETTES, UNCOMPL 11/09/2016 AMANDA WOODSON DO Ot F32.9 MAJOR DEPRESSIVE DISORDER, SINGLE EPISOD 11/09/2016 KANDICE DO, AMANDA K Ot I10 ESSENTIAL (PRIMARY) HYPERTENSION 11/09/2016 KANDICE DO AMANDA K Ot I25.10 ATHSCL HEART DISEASE OF [place] CORONARY 11/09/2016 KANDICE DO AMANDA K Ot J42 UNSPECIFIED CHRONIC BRONCHITIS 11/09/2016 KANDICE DO, AMANDA K Ot J44.9 CHRONIC OBSTRUCTIVE PULMONARY DISEASE, U 11/09/2016 KANDICE DO AMANDA K Ot K21.9 GASTRO-ESOPHAGEAL REFLUX DISEASE WITHOUT 11/09/2016 KANDICE DO, AMANDA K Ot L89.319 PRESSURE ULCER OF RIGHT BUTTOCK, UNSPECI 11/09/2016 KANDICE DO, AMANDA K Ot L89.329 PRESSURE ULCER OF LEFT BUTTOCK, UNSPECIF 11/09/2016 KANDICE DO AMANDA K Ot M19.90 UNSPECIFIED OSTEOARTHRITIS, UNSPECIFIED 11/09/2016 KANDICE DO AMANDA K Ot N39.0 URINARY TRACT INFECTION, SITE NOT SPECIF 11/09/2016 AKNDICE DO AMANDA K Ot N40.1 BENIGN PROSTATIC HYPERPLASIA WITH LOWER 11/09/2016 KANDICE DO AMANDA K Ot R60.0 LOCALIZED EDEMA 11/09/2016 KANDICE DO, AMANDA K Ot T83.098 A [facility] COMPL OF OTHER URINARY CATHETER, IN 11/09/2016 KANDICE DO AMANDA K Ot Z79.4 SNF (CURRENT) USE OF INSULIN 11/09/2016 KANDICE DO AMANDA K Ot Z90.79 ACQUIRED ABSENCE OF OTHER GENITAL ORGAN( 11/09/2016 KANDICE DO AMANDA K Ot Z95.5 PRESENCE OF CORONARY ANGIOPLASTY IMPLANT 11/09/2016 KANDICE DO AMANDA K Ot Z96.0 PRESENCE OF UROGENITAL IMPLANTS 11/10/2016 LACHELLE UP, JOHAN Basurto Ot E11.9 TYPE 2 DIABETES MELLITUS WITHOUT COMPLIC 11/10/2016 JOHAN LAROSE MD Ot E78.5 HYPERLIPIDEMIA, UNSPECIFIED 11/10/2016 JOHAN LAROSE MD Ot F32.9 MAJOR DEPRESSIVE DISORDER, SINGLE EPISOD 11/10/2016 JOHAN LAROSE MD Ot G47.3 3 OBSTRUCTIVE SLEEP APNEA (ADULT) (PEDIATR 11/10/2016 JOHAN LAROSE MD Ot I10 ESSENTIAL (PRIMARY) HYPERTENSION 11/10/2016 JOHAN LAROSE MD, Ot I25.1 0 ATHSCL HEART DISEASE OF [place] CORONARY 11/10/2016 JOHAN LAROSE MD, Ot J44.9 CHRONIC OBSTRUCTIVE PULMONARY DISEASE, U 11/10/2016 JOHAN LAROSE MD, Ot K21.9 GASTRO-ESOPHAGEAL REFLUX DISEASE WITHOUT 11/10/2016 JOHAN LAROSE MD, Ot N31.9 NEUROMUSCULAR DYSFUNCTION OF BLADDER, UN 11/10/2016 JOHAN LAROSE MD, Ot N40.1 BENIGN PROSTATIC HYPERPLASIA WITH LOWER 11/10/2016 JOHAN LAROSE MD, Ot R33.8 OTHER RETENTION OF URINE 11/10/2016 JOHAN LAROSE MD, Ot 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 11/10/2016 JOHAN LAROSE MD, Ot Z79.8 99 OTHER SNF (CURRENT) DRUG THERAPY 11/10/2016 JOHAN LAROSE MD, Ot Z95.5 PRESENCE OF CORONARY ANGIOPLASTY IMPLANT 11/23/2016 JOHAN LAROSE MD, Ot N13.3 0 UNSPECIFIED HYDRONEPHROSIS 11/23/2016 JOHAN LAROSE MD, Ot R31.9 HEMATURIA, UNSPECIFIED 01/26/2017 Ot 305.1 01/26/2017 Ot 462 01/26/2017 Ot V81.5 OCCU PANT OF RAIL TRN/VEH INJURED BY FALL 01/26/2017 Ot 305.1 01/26/2017 Ot 786.09 01/26/2017 Ot 573.8 01/26/2017 Ot 786.3 01/26/2017 Ot 786.52 01/26/2017 Ot 786.09 01/26/2017 Ot 786.50 01/26/2017 Ot 250.00 DAYANNA B SPIKE WO COMPL, TYPE II OR UNSPEC TY 01/26/2017 Ot 424.0 MITR AL VALVE DISORDER 01/26/2017 Ot 428.0 CARL ESTIVE HEART FAILURE NOS 01/26/2017 Ot 429.3 CARD IOMEGALY 01/26/2017 Ot 729.81 SWE LLING OF LIMB 01/26/2017 Ot 782.3 EDEMA 01/26/2017 Ot 787.91 DAYANNA RRHEA 01/26/2017 Ot V72.84 OMERO M PRE- OPERATIVE NOS 01/26/2017 CHARLIE RUBIO, VANESSA Montoya Ot 272.4 HYPERLIPIDEMIA NEC/NOS 01/26/2017 VANESSA CARRERA Ot 401.9 HYPERTENSION NOS 01/26/2017 VANESSA CARRERA Ot 414.00 CORON ATHEROSCLER NOS TYPE VESSEL, NATIV 01/26/2017 VANESSA CARRERA Ot 433.10 CAROTID ARTERY OCCLUSION W O CEREBRAL IN 01/26/2017 VANESSA CARRERA Ot 272.4 HYPERLIPIDEMIA NEC/NOS 01/26/2017 VANESSA CARRERA Ot 401.9 HYPERTENSION NOS 01/26/2017 VANESSA CARRERA Ot 414.00 CORON ATHEROSCLER NOS TYPE VESSEL, NATIV 01/26/2017 VANESSA CARRERA Ot 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 2 MIXED HYPERLIPIDEMIA 01/26/2017 SILAS HAINES MD Ot F17.200 NICOTINE DEPENDENCE, UNSPECIFIED, UNCOMP 01/26/2017 SILAS HAINES MD Ot I10 ESSENTIAL (PRIMARY) HYPERTENSION 01/26/2017 SILAS HAINES MD Ot I25. 10 ATHSCL HEART DISEASE OF [place] CORONARY 01/26/2017 SILAS HAINES MD Ot R07. 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 10 ATHSCL HEART DISEASE OF [place] CORONARY 01/26/2017 SILAS HAINES MD Ot R07. 9 CHEST PAIN, UNSPECIFIED 01/26/2017 JOHNA LAROSE MD Ot N13.3 0 UNSPECIFIED HYDRONEPHROSIS 01/26/2017 JOHAN LAROSE MD Ot R31.9 HEMATURIA, UNSPECIFIED 01/26/2017 Ot 424.0 MITR AL VALVE DISORDER 01/26/2017 Ot 428.0 CARL ESTIVE HEART FAILURE NOS 01/26/2017 Ot 429.3 CARD IOMEGALY 01/26/2017 Ot 729.81 SWE LLING OF LIMB 01/26/2017 Ot 782.3 EDEMA 01/26/2017 Ot 787.91 DAYANNA RRHEA 01/26/2017 Ot V72.84 EXA M PRE- OPERATIVE NOS 01/26/2017 VANESSA CARRERA Ot 272.4 HYPERLIPIDEMIA NEC/NOS 01/26/2017 VANESSA CARRERA Ot 401.9 HYPERTENSION NOS 01/26/2017 VANESSA CARRERA Ot 414.00 CORON ATHEROSCLER NOS TYPE VESSEL, NATIV 01/26/2017 VANESSA CARRERA Ot 433.10 CAROTID ARTERY OCCLUSION W O CEREBRAL IN 01/26/2017 VANESSA CARRERA Ot 272.4 HYPERLIPIDEMIA NEC/NOS 01/26/2017 VANESSA CARRERA Ot 401.9 HYPERTENSION NOS 01/26/2017 VANESSA CARRERA Ot 414.00 CORON ATHEROSCLER NOS TYPE VESSEL, NATIV 01/26/2017 VANESSA CARRERA Ot 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 2 MIXED HYPERLIPIDEMIA 01/26/2017 SILAS HAINES MD Ot F17.200 NICOTINE DEPENDENCE, UNSPECIFIED, UNCOMP 01/26/2017 SILAS HAINES MD Ot I10 ESSENTIAL (PRIMARY) HYPERTENSION 01/26/2017 SILAS HAINES MD Ot I25. 10 ATHSCL HEART DISEASE OF [place] CORONARY 01/26/2017 SILAS HAINES MD Ot R07. 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 10 ATHSCL HEART DISEASE OF [place] CORONARY 01/26/2017 SILAS HAINES MD Ot R07. 9 CHEST PAIN, UNSPECIFIED 01/26/2017 LACHELLE UP, JOHAN Basurto Ot N13.3 0 UNSPECIFIED HYDRONEPHROSIS 01/26/2017 JOHAN LAROSE MD Ot R31.9 HEMATURIA, UNSPECIFIED 04/27/2017 Ot 305.1 04/27/2017 Ot 462 04/27/2017 Ot V81.5 OCCU PANT OF RAIL TRN/VEH INJURED BY FALL 04/27/2017 Ot 305.1 04/27/2017 Ot 786.09 04/27/2017 Ot 573.8 04/27/2017 Ot 786.3 04/27/2017 Ot 786.52 04/27/2017 Ot 786.09 04/27/2017 Ot 786.50 04/27/2017 Ot 250.00 DAYANNA B SPIKE WO COMPL, TYPE II OR UNSPEC TY 04/27/2017 Ot 424.0 MITR AL VALVE DISORDER 04/27/2017 Ot 428.0 CARL ESTIVE HEART FAILURE NOS 04/27/2017 Ot 429.3 CARD IOMEGALY 04/27/2017 Ot 729.81 SWE LLING OF LIMB 04/27/2017 Ot 782.3 EDEMA 04/27/2017 Ot 787.91 DAYANNA RRHEA 04/27/2017 Ot V72.84 EXA M PRE- OPERATIVE NOS 04/27/2017 VANESSA CARRERA Ot 272.4 HYPERLIPIDEMIA NEC/NOS 04/27/2017 VANESSA CARRERA Ot 401.9 HYPERTENSION NOS 04/27/2017 VANESSA CARRERA Ot 414.00 CORON ATHEROSCLER NOS TYPE VESSEL, NATIV 04/27/2017 VANESSA CARRERA Ot 433.10 CAROTID ARTERY OCCLUSION W O CEREBRAL IN 04/27/2017 VANESSA CARRERA Ot 272.4 HYPERLIPIDEMIA NEC/NOS 04/27/2017 VANESSA CARRERA Ot 401.9 HYPERTENSION NOS 04/27/2017 VANESSA CARRERA Ot 414.00 CORON ATHEROSCLER NOS TYPE VESSEL, NATIV 04/27/2017 VANESSA CARRERA Ot 433.10 CAROTID ARTERY OCCLUSION W O CEREBRAL IN 04/27/2017 VNAESSA CARRERA Ot 433.30 MULT BILTRAL ARTERY OCCLUSION WO CEREBRA 04/27/2017 VANESSA CARRERA Ot 496 CHR AIRWAY OBSTRUCT NEC 04/27/2017 SILAS HAINES MD Ot E78. 2 MIXED HYPERLIPIDEMIA 04/27/2017 SILAS HAINES MD Ot F17.200 NICOTINE DEPENDENCE, UNSPECIFIED, UNCOMP 04/27/2017 SILAS HAINES MD Ot I10 ESSENTIAL (PRIMARY) HYPERTENSION 04/27/2017 SILAS HAINES MD Ot I25. 10 ATHSCL HEART DISEASE OF [place] CORONARY 04/27/2017 SILAS HAINES MD Ot R07. 9 CHEST PAIN, UNSPECIFIED 04/27/2017 SILAS HAINES MD Ot E78. 2 MIXED HYPERLIPIDEMIA 04/27/2017 SILAS HAINES MD Ot F17.200 NICOTINE DEPENDENCE, UNSPECIFIED, UNCOMP 04/27/2017 SILAS HAINES MD Ot I10 ESSENTIAL (PRIMARY) HYPERTENSION 04/27/2017 SILAS HAINES MD Ot I25. 10 ATHSCL HEART DISEASE OF [place] CORONARY 04/27/2017 SILAS HAINES MD Ot R07. 9 CHEST PAIN, UNSPECIFIED 04/27/2017 JOHAN LAROSE MD Ot N13.3 0 UNSPECIFIED HYDRONEPHROSIS 04/27/2017 JOHAN LAROSE MD Ot R31.9 HEMATURIA, UNSPECIFIED 05/25/2017 Ot V72.84 EXA M PRE- OPERATIVE NOS 05/25/2017 VANESSA CARRERA Ot 272.4 HYPERLIPIDEMIA NEC/NOS 05/25/2017 VANESSA CARRERA Ot 401.9 HYPERTENSION NOS 05/25/2017 VANESSA CARRERA Ot 414.00 CORON ATHEROSCLER NOS TYPE VESSEL, NATIV 05/25/2017 VANESSA CARRERA Ot 433.10 CAROTID ARTERY OCCLUSION W O CEREBRAL IN 05/25/2017 VANESSA CARRERA Ot 272.4 HYPERLIPIDEMIA NEC/NOS 05/25/2017 VANESSA CARRERA Ot 401.9 HYPERTENSION NOS 05/25/2017 VANESSA CARRERA Ot 414.00 CORON ATHEROSCLER NOS TYPE VESSEL, NATIV 05/25/2017 VANESSA CARRERA Ot 433.10 CAROTID ARTERY OCCLUSION W O CEREBRAL IN 05/25/2017 VANESSA CARRERA Ot 433.30 MULT BILTRAL ARTERY OCCLUSION WO CEREBRA 05/25/2017 VANESSA CARRERA Ot 496 CHR AIRWAY OBSTRUCT NEC 05/25/2017 SILAS HAINES MD Ot E78. 2 MIXED HYPERLIPIDEMIA 05/25/2017 SILAS HAINES MD Ot F17.200 NICOTINE DEPENDENCE, UNSPECIFIED, UNCOMP 05/25/2017 SILAS HAINES MD Ot I10 ESSENTIAL (PRIMARY) HYPERTENSION 05/25/2017 SILAS HAINES MD Ot I25. 10 ATHSCL HEART DISEASE OF [place] CORONARY 05/25/2017 SILAS HAINES MD Ot R07. 9 CHEST PAIN, UNSPECIFIED 05/25/2017 SILAS HAINES MD Ot E78. 2 MIXED HYPERLIPIDEMIA 05/25/2017 SILAS HAINES MD Ot F17.200 NICOTINE DEPENDENCE, UNSPECIFIED, UNCOMP 05/25/2017 SILAS HAINES MD Ot I10 ESSENTIAL (PRIMARY) HYPERTENSION 05/25/2017 SILAS HAINES MD Ot I25. 10 ATHSCL HEART DISEASE OF [place] CORONARY 05/25/2017 SILAS HAINES MD Ot R07. 9 CHEST PAIN, UNSPECIFIED 05/25/2017 LACHELLE UP, JOHAN Basurto Ot N13.3 0 UNSPECIFIED HYDRONEPHROSIS 05/25/2017 JOHAN LAROSE MD Ot R31.9 HEMATURIA, UNSPECIFIED 05/28/2017 VANESSA CARRERA Ot E78.2 MIXED HYPERLIPIDEMIA 05/28/2017 VANESSA CARRERA Ot G47.33 OBSTRUCTIVE SLEEP APNEA (ADULT) (PEDIATR 05/28/2017 VANESSA CARRERA Ot I10 ESSENTIAL (PRIMARY) HYPERTENSION 05/28/2017 VANESSA CARRERA Ot I25.10 ATHSCL HEART DISEASE OF [place] CORONARY 05/31/2017 VANESSA CARRERA Ot E78.2 MIXED HYPERLIPIDEMIA 05/31/2017 VANESSA CARRERA Ot G47.33 OBSTRUCTIVE SLEEP APNEA (ADULT) (PEDIATR 05/31/2017 VANESSA CARRERA K Ot I10 ESSENTIAL (PRIMARY) HYPERTENSION 05/31/2017 VANESSA CARRERA Ot I25.10 ATHSCL HEART DISEASE OF [place] CORONARY 05/31/2017 VANESSA CARRERA Ot E78.2 MIXED HYPERLIPIDEMIA 05/31/2017 VANESSA CARRERA Ot G47.33 OBSTRUCTIVE SLEEP APNEA (ADULT) (PEDIATR 05/31/2017 VANESSA CARRERA K Ot I10 ESSENTIAL (PRIMARY) HYPERTENSION 05/31/2017 VANESSA CARRERA Ot I25.10 ATHSCL HEART DISEASE OF [place] CORONARY 06/06/2017 SILAS HAINES MD Ot E11. 9 TYPE 2 DIABETES MELLITUS WITHOUT COMPLIC 06/06/2017 SILAS HAINES MD Ot E78. 5 HYPERLIPIDEMIA, UNSPECIFIED 06/06/2017 SILAS HAINES MD Ot G47. 33 OBSTRUCTIVE SLEEP APNEA (ADULT) (PEDIATR 06/06/2017 SILAS HAINES MD Ot I10 ESSENTIAL (PRIMARY) HYPERTENSION 06/06/2017 SILAS HAINES MD Ot I25. 10 ATHSCL HEART DISEASE OF [place] CORONARY 06/06/2017 SILAS HAINES MD Ot J44. 9 CHRONIC OBSTRUCTIVE PULMONARY DISEASE, U 06/06/2017 SILAS HAINES MD Ot K21. 9 GASTRO-ESOPHAGEAL REFLUX DISEASE WITHOUT 06/06/2017 SILAS HAINES MD Ot Z79. 4 SNF (CURRENT) USE OF INSULIN 06/06/2017 SILAS HAINES MD Ot Z79.899 OTHER SNF (CURRENT) DRUG THERAPY 06/12/2017 SILAS HAINES MD Ot E11. 9 TYPE 2 DIABETES MELLITUS WITHOUT COMPLIC 06/12/2017 SILAS HAINES MD Ot E78. 5 HYPERLIPIDEMIA, UNSPECIFIED 06/12/2017 SILAS HAINES MD Ot G47. 33 OBSTRUCTIVE SLEEP APNEA (ADULT) (PEDIATR 06/12/2017 SILAS HAINES MD Ot I10 ESSENTIAL (PRIMARY) HYPERTENSION 06/12/2017 SILAS HAINES MD Ot I25. 10 ATHSCL HEART DISEASE OF [place] CORONARY 06/12/2017 SILAS HAINES MD Ot J44. 9 CHRONIC OBSTRUCTIVE PULMONARY DISEASE, U 06/12/2017 SILAS HAINES MD Ot K21. 9 GASTRO-ESOPHAGEAL REFLUX DISEASE WITHOUT 06/12/2017 SILAS HAINES MD Ot Z79. 4 HYDRAULIC CORRUGATING MACHINE OPERATOR (CURRENT) USE OF INSULIN 06/12/2017 SILAS HAINES MD Ot Z79.899 OTHER HYDRAULIC CORRUGATING MACHINE OPERATOR (CURRENT) DRUG THERAPY 06/14/2017 SILAS HAINES MD Ot E11. 9 TYPE 2 DIABETES MELLITUS WITHOUT COMPLIC 06/14/2017 SILAS HAINES MD Ot E78. 5 HYPERLIPIDEMIA, UNSPECIFIED 06/14/2017 SILAS HAINES MD Ot G47. 33 OBSTRUCTIVE SLEEP APNEA (ADULT) (PEDIATR 06/14/2017 SILAS HAINES MD Ot I10 ESSENTIAL (PRIMARY) HYPERTENSION 06/14/2017 SILAS HAINES MD Ot I25. 10 ATHSCL HEART DISEASE OF [place] CORONARY 06/14/2017 SILAS HAINES MD Ot J44. 9 CHRONIC OBSTRUCTIVE PULMONARY DISEASE, U 06/14/2017 SILAS HAINES MD Ot K21. 9 GASTRO-ESOPHAGEAL REFLUX DISEASE WITHOUT 06/14/2017 SILAS HAINES MD Ot Z79. 4 SNF (CURRENT) USE OF INSULIN 06/14/2017 SILAS HAINES MD Ot Z79.899 OTHER HYDRAULIC CORRUGATING MACHINE OPERATOR (CURRENT) DRUG THERAPY 06/21/2017 VANESSA CARRERA Ot E78.2 MIXED HYPERLIPIDEMIA 06/21/2017 VANESSA CARRERA Ot G47.33 OBSTRUCTIVE SLEEP APNEA (ADULT) (PEDIATR 06/21/2017 VANESSA CARRERA Ot I10 ESSENTIAL (PRIMARY) HYPERTENSION 06/21/2017 VANESSA CARRERA Ot I25.10 ATHSCL HEART DISEASE OF [place] CORONARY 06/22/2017 VANESSA CARRERA Ot E78.2 MIXED HYPERLIPIDEMIA 06/22/2017 VANESSA CARRERA Ot G47.33 OBSTRUCTIVE SLEEP APNEA (ADULT) (PEDIATR 06/22/2017 VANESSA CARRERA Ot I10 ESSENTIAL (PRIMARY) HYPERTENSION 06/22/2017 VANESSA CARRERA Ot I25.10 ATHSCL HEART DISEASE OF [place] CORONARY 07/02/2017 VANESSA CARRERA Ot E78.2 MIXED HYPERLIPIDEMIA 07/02/2017 VANESSA CARRERA Ot G47.33 OBSTRUCTIVE SLEEP APNEA (ADULT) (PEDIATR 07/02/2017 VANESSA CARRERA Ot I10 ESSENTIAL (PRIMARY) HYPERTENSION 07/02/2017 VANESSA CARRERA Ot I25.10 ATHSCL HEART DISEASE OF [place] CORONARY 07/02/2017 VANESSA CARRERA Ot E78.2 MIXED HYPERLIPIDEMIA 07/02/2017 VANESSA CARRERA Ot G47.33 OBSTRUCTIVE SLEEP APNEA (ADULT) (PEDIATR 07/02/2017 VANESSA CARRERA Ot I10 ESSENTIAL (PRIMARY) HYPERTENSION 07/02/2017 VANESSA CARRERA Ot I25.10 ATHSCL HEART DISEASE OF [place] CORONARY 09/29/2018 VANESSA CARRERA Ot 272.4 HYPERLIPIDEMIA NEC/NOS 09/29/2018 VANESSA CARRERA Ot 401.9 HYPERTENSION NOS 09/29/2018 VANESSA CARRERA Ot 414.00 CORON ATHEROSCLER NOS TYPE VESSEL, NATIV 09/29/2018 VANESSA CARRERA Ot 433.10 CAROTID ARTERY OCCLUSION W O CEREBRAL IN 09/29/2018 VANESSA CARRERA Ot 272.4 HYPERLIPIDEMIA NEC/NOS 09/29/2018 VANESSA CARRERA Ot 401.9 HYPERTENSION NOS 09/29/2018 VANESSA CARRERA Ot 414.00 CORON ATHEROSCLER NOS TYPE VESSEL, NATIV 09/29/2018 VANESSA CARRERA Ot 433.10 CAROTID ARTERY OCCLUSION W O CEREBRAL IN 09/29/2018 VANESSA CARRERA Ot 433.30 MULT BILTRAL ARTERY OCCLUSION WO CEREBRA 09/29/2018 VANESSA CARRERA Ot 496 CHR AIRWAY OBSTRUCT NEC 09/29/2018 SILAS HAINES MD Ot E78. 2 MIXED HYPERLIPIDEMIA 09/29/2018 SILAS HAINES MD Ot F17.200 NICOTINE DEPENDENCE, UNSPECIFIED, UNCOMP 09/29/2018 SILAS HAINES MD Ot I10 ESSENTIAL (PRIMARY) HYPERTENSION 09/29/2018 SILAS HAINES MD Ot I25. 10 ATHSCL HEART DISEASE OF [place] CORONARY 09/29/2018 SILAS HAINES MD Ot R07. 9 CHEST PAIN, UNSPECIFIED 09/29/2018 SILAS HAINES MD Ot E78. 2 MIXED HYPERLIPIDEMIA 09/29/2018 SILAS HAINES MD Ot F17.200 NICOTINE DEPENDENCE, UNSPECIFIED, UNCOMP 09/29/2018 SILAS HAINES MD Ot I10 ESSENTIAL (PRIMARY) HYPERTENSION 09/29/2018 SILAS HAINES MD Ot I25. 10 ATHSCL HEART DISEASE OF [place] CORONARY 09/29/2018 SILAS HAINES MD Ot R07. 9 CHEST PAIN, UNSPECIFIED 09/29/2018 LACHELLE UP, JOHAN Basurto Ot N13.3 0 UNSPECIFIED HYDRONEPHROSIS 09/29/2018 LACHELLE UP, JOHAN Basurto Ot R31.9 HEMATURIA, UNSPECIFIED 09/29/2018 VANESSA CARRERA Ot E78.2 MIXED HYPERLIPIDEMIA 09/29/2018 VANESSA CARRERA Ot G47.33 OBSTRUCTIVE SLEEP APNEA (ADULT) (PEDIATR 09/29/2018 VANESSA CARRERA Ot I10 ESSENTIAL (PRIMARY) HYPERTENSION 09/29/2018 VANESSA CARRERA Ot I25.10 ATHSCL HEART DISEASE OF [place] CORONARY 09/29/2018 VANESSA CARRERA Ot E78.2 MIXED HYPERLIPIDEMIA 09/29/2018 VANESSA CARRERA Ot G47.33 OBSTRUCTIVE SLEEP APNEA (ADULT) (PEDIATR 09/29/2018 VANESSA CARRERA Ot I10 ESSENTIAL (PRIMARY) HYPERTENSION 09/29/2018 VANESSA CARRERA Ot I25.10 ATHSCL HEART DISEASE OF [place] CORONARY 09/29/2018 AMANDA WOODSON DO Ot E11.22 TYPE 2 DIABETES MELLITUS W DIABETIC PLATE AND FRAME FILTER OPERATOR 09/29/2018 AMANDA WOODSON DO Ot E11.40 TYPE 2 DIABETES MELLITUS WITH DIABETIC N 09/29/2018 AMANDA WOODSON DO Ot F03.90 UNSPECIFIED DEMENTIA WITHOUT BEHAVIORAL 09/29/2018 AMANDA WOODSON DO Ot F32.9 MAJOR DEPRESSIVE DISORDER, SINGLE EPISOD 09/29/2018 AMANDA WOODSON DO Ot G47.30 SLEEP APNEA, UNSPECIFIED 09/29/2018 AMANDA WOODSON DO Ot I12.9 HYPERTENSIVE CHRONIC KIDNEY DISEASE W ST 09/29/2018 AMANDA WOODSON DO Ot I25.10 ATHSCL HEART DISEASE OF [place] CORONARY 09/29/2018 AMANDA WOODSON DO Ot J44.1 CHRONIC OBSTRUCTIVE PULMONARY DISEASE W 09/29/2018 AMANDA WOODSON DO Ot K21.9 GASTRO-ESOPHAGEAL REFLUX DISEASE WITHOUT 09/29/2018 AMANDA WOODSON DO Ot N18.9 CHRONIC KIDNEY DISEASE, UNSPECIFIED 09/29/2018 AMANDA WOODSON DO Ot R06.02 SHORTNESS OF BREATH 09/29/2018 AMANDA WOODSON DO Ot W19.XXX A UNSPECIFIED FALL, INITIAL ENCOUNTER 09/29/2018 AMANDA WOODSON DO Ot Z79.4 SNF (CURRENT) USE OF INSULIN 09/29/2018 AMANDA WOODSON DO Ot Z79.52 HYDRAULIC CORRUGATING MACHINE OPERATOR (CURRENT) USE OF SYSTEMIC STER 09/29/2018 AMANDA WOODSON DO Ot Z82.49 FAMILY HX OF ISCHEM HEART DIS AND OTH DI 09/29/2018 AMANDA WOODSON DO Ot Z87.01 PERSONAL HISTORY OF PNEUMONIA (RECURRENT 09/29/2018 AMANDA WOODSON DO Ot Z87.19 PERSONAL HISTORY OF OTHER DISEASES OF TH 09/29/2018 AMANDA WOODSON DO Ot Z87.440 PERSONAL HISTORY OF URINARY (TRACT) INFE 09/29/2018 AMANDA WOODSON DO Ot Z87.891 PERSONAL HISTORY OF NICOTINE DEPENDENCE 09/29/2018 AMANDA WOODSON DO Ot Z88.0 ALLERGY STATUS TO PENICILLIN 09/29/2018 AMANDA WOODSON DO Ot Z88.8 ALLERGY STATUS TO OTH DRUG/MEDS/BIOL SUB 09/29/2018 AMANDA WOODSON DO Ot Z90.79 ACQUIRED ABSENCE OF OTHER GENITAL ORGAN( 09/29/2018 AMANDA WOODSON DO Ot Z91.19 PATIENT'S NONCOMPLIANCE W OTH MEDICAL TR 09/29/2018 AMANDA WOODSON DO Ot Z95.5 PRESENCE OF CORONARY ANGIOPLASTY IMPLANT 09/29/2018 KANDICE AMANDA Ot Z98.890 OTHER SPECIFIED POSTPROCEDURAL STATES 09/29/2018 KANDICE PACHECO AMANDA Jan Ot Z99.81 DEPENDENCE ON SUPPLEMENTAL OXYGEN 10/03/2018 KANDICE DO AMANDA K Ot E11.22 TYPE 2 DIABETES MELLITUS W DIABETIC PLATE AND FRAME FILTER OPERATOR 10/03/2018 KANDICE AMANDA PACHECO Ot E11.40 TYPE 2 DIABETES MELLITUS WITH DIABETIC N 10/03/2018 KANDICE AMANDA PACHECO Ot F03.90 UNSPECIFIED DEMENTIA WITHOUT BEHAVIORAL 10/03/2018 KANDICE AMANDA K Ot F32.9 MAJOR DEPRESSIVE DISORDER, SINGLE EPISOD 10/03/2018 KANDICE AMANDA Ot G47.30 SLEEP APNEA, UNSPECIFIED 10/03/2018 KANDICE DO AMANDA K Ot I12.9 HYPERTENSIVE CHRONIC KIDNEY DISEASE W ST 10/03/2018 KANDICE AMANDA Ot I25.10 ATHSCL HEART DISEASE OF [place] CORONARY 10/03/2018 KANDICE PACHECO AMANDA K Ot J44.1 CHRONIC OBSTRUCTIVE PULMONARY DISEASE W 10/03/2018 KANDICE DO AMANDA K Ot K21.9 GASTRO-ESOPHAGEAL REFLUX DISEASE WITHOUT 10/03/2018 KANDICE AMANDA K Ot N18.9 CHRONIC KIDNEY DISEASE, UNSPECIFIED 10/03/2018 KANDICE AMANDA Jan Ot R06.02 SHORTNESS OF BREATH 10/03/2018 KANDICE AMANDA K Ot W19.XXX A UNSPECIFIED FALL, INITIAL ENCOUNTER 10/03/2018 AMANDA WOODSON DO Ot Z79.4 SNF (CURRENT) USE OF INSULIN 10/03/2018 JOSE C WOODSON DOA Jan Ot Z79.52 HYDRAULIC CORRUGATING MACHINE OPERATOR (CURRENT) USE OF SYSTEMIC STER 10/03/2018 JOSE C WOODSON DOA Jan Ot Z82.49 FAMILY HX OF ISCHEM HEART DIS AND OTH DI 10/03/2018 AMANDA WOODSON DO Ot Z87.01 PERSONAL HISTORY OF PNEUMONIA (RECURRENT 10/03/2018 AMANDA WOODSON DO K Ot Z87.19 PERSONAL HISTORY OF OTHER DISEASES OF TH 10/03/2018 AMANDA WOODSON DO Ot Z87.440 PERSONAL HISTORY OF URINARY (TRACT) INFE 10/03/2018 AMANDA WOODSON DO Ot Z87.891 PERSONAL HISTORY OF NICOTINE DEPENDENCE 10/03/2018 AMANDA WOODSON DO Ot Z88.0 ALLERGY STATUS TO PENICILLIN 10/03/2018 KANDICE PACHECO AMANDA Jan Ot Z88.[address] [facility] DRUG/MEDS/BIOL SUB 10/03/2018 AMANDA WOODSON DO Jan Ot Z90.79 ACQUIRED ABSENCE OF OTHER GENITAL ORGAN( 10/03/2018 AMANDA WOODSON DO Ot Z91.19 PATIENT'S NONCOMPLIANCE W OT MEDICAL TR 10/03/2018 KANDICE PACHECO AMANDA Jan Ot Z95.5 PRESENCE OF CORONARY ANGIOPLASTY IMPLANT 10/03/2018 KANDICE PACHECO AMANDA Montoya Ot Z98.890 OTHER SPECIFIED POSTPROCEDURAL STATES 10/03/2018 KANDICE PACHECOAMANDA Ot Z99.81 DEPENDENCE ON SUPPLEMENTAL OXYGEN 10/29/2018 VERENA LANCE MD, Ot J44.9 CHRONIC OBSTRUCTIVE PULMONARY DISEASE, U 10/29/2018 VERENA LANCE MD Ot W19.XXXA UNSPECIFIED FALL, INITIAL ENCOUNTER 10/29/2018 VERENA LANCE MD Ot Z87.8 1 PERSONAL HISTORY OF (HEALED) TRAUMATIC F 11/06/2018 VERENA LANCE MD, Ot J44.9 CHRONIC OBSTRUCTIVE PULMONARY DISEASE, U 11/06/2018 VERENA LANCE MD Ot W19.XXXA UNSPECIFIED FALL, INITIAL ENCOUNTER 11/06/2018 VERENA LANCE MD Ot Z87.8 1 PERSONAL HISTORY OF (HEALED) TRAUMATIC F 02/21/2019 VERENA LANCE MD Ot J20.9 ACUTE BRONCHITIS, UNSPECIFIED 02/21/2019 VERENA LANCE MD Ot R31.9 HEMATURIA, UNSPECIFIED 02/25/2019 VERENA LANCE MD Ot E04.1 NONTOXIC SINGLE THYROID NODULE 03/03/2019 VERENA LANCE MD, Ot E04.1 NONTOXIC SINGLE THYROID NODULE 03/03/2019 VERENA LANCE MD, Ot I25.1 0 ATHSCL HEART DISEASE OF [place] CORONARY 03/03/2019 VERENA LANCE MD, Ot J20.9 ACUTE BRONCHITIS, UNSPECIFIED 03/03/2019 VERENA LANCE MD, Ot J44.9 CHRONIC OBSTRUCTIVE PULMONARY DISEASE, U 03/03/2019 VERENA LANCE MD Ot K76.0 FATTY (CHANGE OF) LIVER, NOT ELSEWHERE C 03/03/2019 VERENA LANCE MD Ot M89.8 X9 OTHER SPECIFIED DISORDERS OF BONE, UNSPE 03/03/2019 VERENA LANCE MD Ot N13.3 0 UNSPECIFIED HYDRONEPHROSIS 03/03/2019 VERENA LANCE MD, Ot N62 HYPERTROPHY OF BREAST 03/03/2019 VERENA LANCE MD Ot R31.9 HEMATURIA, UNSPECIFIED 03/03/2019 VERENA LANCE MD Ot Z90.4 9 ACQUIRED ABSENCE OF OTHER SPECIFIED PART 03/05/2019 JOHAN LAROSE MD Ot K57.3 0 DVRTCLOS OF LG INT W/O PERFORATION OR AB 03/05/2019 JOHAN LAROSE MD Ot N13.3 0 UNSPECIFIED HYDRONEPHROSIS 03/05/2019 JOHAN LAROSE MD Ot N32.8 9 OTHER SPECIFIED DISORDERS OF BLADDER 03/13/2019 VERENA LANCE MD Ot E04.1 NONTOXIC SINGLE THYROID NODULE 03/19/2019 VERENA LANCE MD Ot E04.1 NONTOXIC SINGLE THYROID NODULE 03/19/2019 VERENA LANCE MD Ot I25.1 0 ATHSCL HEART DISEASE OF [place] CORONARY 03/19/2019 VERENA LANCE MD Ot J20.9 ACUTE BRONCHITIS, UNSPECIFIED 03/19/2019 VERENA LANCE MD Ot J44.9 CHRONIC OBSTRUCTIVE PULMONARY DISEASE, U 03/19/2019 VERENA LANCE MD Ot K76.0 FATTY (CHANGE OF) LIVER, NOT ELSEWHERE C 03/19/2019 VERENA LANCE MD Ot M89.8 X9 OTHER SPECIFIED DISORDERS OF BONE, UNSPE 03/19/2019 VERENA LANCE MD Ot N13.3 0 UNSPECIFIED HYDRONEPHROSIS 03/19/2019 VERENA LANCE MD Ot N62 HYPERTROPHY OF BREAST 03/19/2019 VERENA LANCE MD Ot R31.9 HEMATURIA, UNSPECIFIED 03/19/2019 VERENA LANCE MD Ot Z90.4 9 ACQUIRED ABSENCE OF OTHER SPECIFIED PART 03/21/2019 JOHAN LAROSE MD Ot K57.3 0 DVRTCLOS OF LG INT W/O PERFORATION OR AB 03/21/2019 JOHAN LAROSE MD Ot N13.3 0 UNSPECIFIED HYDRONEPHROSIS 03/21/2019 JOHAN LAROSE MD Ot N32.8 9 OTHER SPECIFIED DISORDERS OF BLADDER 03/24/2019 VERENA LANCE MD Ot E04.1 NONTOXIC SINGLE THYROID NODULE 03/25/2019 JOHAN LAROSE MD Ot N13.3 0 UNSPECIFIED HYDRONEPHROSIS 03/25/2019 JOHAN LAROSE MD Ot N32.8 9 OTHER SPECIFIED DISORDERS OF BLADDER 03/25/2019 JOHAN LAROSE MD Ot Z96.0 PRESENCE OF UROGENITAL IMPLANTS 03/31/2019 JOHAN LAROSE MD, Ot K57.3 0 DVRTCLOS OF LG INT W/O PERFORATION OR AB 03/31/2019 JOHAN LAROSE MD Ot N13.3 0 UNSPECIFIED HYDRONEPHROSIS 03/31/2019 JOHAN LAROSE MD Ot N32.8 9 OTHER SPECIFIED DISORDERS OF BLADDER 05/01/2019 CRISTINE DO CARLOS Ot E11.22 TYPE 2 DIABETES MELLITUS W DIABETIC PLATE AND FRAME FILTER OPERATOR 05/01/2019 CRISTINE PACHECO CARLOS Ot E11.40 TYPE 2 DIABETES MELLITUS WITH DIABETIC N 05/01/2019 CRISTINE PACHECO CARLOS Ot E66.9 OBESITY, UNSPECIFIED 05/01/2019 CRISTINE DO CARLOS Ot E78.00 PURE HYPERCHOLESTEROLEMIA, UNSPECIFIED 05/01/2019 CRISTINE DO CARLOS Ot E87.5 HYPERKALEMIA 05/01/2019 CRISTINE PACHECO CARLOS Ot F03.90 UNSPECIFIED DEMENTIA WITHOUT BEHAVIORAL 05/01/2019 CRISTINE PACHECO CARLOS Ot F32.9 MAJOR DEPRESSIVE DISORDER, SINGLE EPISOD 05/01/2019 CRISTINE PACHECO CARLOS Ot F41.9 ANXIETY DISORDER, UNSPECIFIED 05/01/2019 CRISTINE PACHECO CARLOS Ot G89.29 OTHER CHRONIC PAIN 05/01/2019 CRISTINE PACHECO CARLOS Ot I12.9 HYPERTENSIVE CHRONIC KIDNEY DISEASE W ST 05/01/2019 CRISTINE PACHECO CARLOS Ot I25.10 ATHSCL HEART DISEASE OF [place] CORONARY 05/01/2019 CRISTINE PACHECO CARLOS Ot J20.9 ACUTE BRONCHITIS, UNSPECIFIED 05/01/2019 CRISTINE DO CARLOS Ot J44.0 CHR OBSTRUCTIVE PULMON DISEASE WITH (ACU 05/01/2019 CRISTINE DO CARLOS Ot J44.1 CHRONIC OBSTRUCTIVE PULMONARY DISEASE W 05/01/2019 CRISTINE PACHECO CARLOS Ot J96.20 ACUTE AND CHR RESP FAILURE, UNSP W HYPOX 05/01/2019 CRISTINE PACHECO CARLOS Ot K21.9 GASTRO-ESOPHAGEAL REFLUX DISEASE WITHOUT 05/01/2019 CARLOS COLUNGA DO Ot M54.9 DORSALGIA, UNSPECIFIED 05/01/2019 CARLOS COLUNGA DO Ot N18.9 CHRONIC KIDNEY DISEASE, UNSPECIFIED 05/01/2019 CARLOS COLUNGA DO Ot N40.0 BENIGN PROSTATIC HYPERPLASIA WITHOUT LOW 05/01/2019 CARLOS COLUNGA DO Ot Z68.38 BODY MASS INDEX (BMI) 38.0-38.9, ADULT 05/01/2019 CARLOS COLUNGA DO Ot Z87.89 1 PERSONAL HISTORY OF NICOTINE DEPENDENCE 05/01/2019 CARLOS COLUNGA DO Ot Z99.81 DEPENDENCE ON SUPPLEMENTAL OXYGEN 07/11/2019 CASI UP, VERENA Sanchez Ot J44.9 CHRONIC OBSTRUCTIVE PULMONARY DISEASE, U 07/22/2019 SEJAL CHAMORRO APRN Ot J18.9 PNEUMONIA, UNSPECIFIED ORGANISM 07/22/2019 SEJAL CHAMORRO APRN Ot J18.9 PNEUMONIA, UNSPECIFIED ORGANISM Procedures Code Description Performed By Per dano On 37.22 LEFT HEART CARDIAC CATH 04/19/2009 88.53 LT H EART ANGIOCARDIOGRAM 04/19/2009 88.56 ODELL HENNA ARTERIOGR-2 CATH 04/19/2009 Results Test Result Range Complete blood count (CBC) with automate d white blood cell (WBC) differential - 12/03/15 20:42 Blood leukocytes automated count (number/volume) 12.0 10*3/uL 4.3-11.0 Blood erythrocytes automated count (number/volume) 4.40 10*6/uL 4.35-5.85 Venous blood hemoglobin measurement (mass/volume) 13.4 g/dL 13.3-17.7 Blood hematocrit (volume fraction) 38 % 40-54 Automated erythrocyte mean corpuscular volume 86 [ foz_us] 80-99 Automated erythrocyte mean corpuscular h emoglobin (mass per erythrocyte) 31 pg 25-34 Automated erythrocyte mean corpuscular h emoglobin concentration measurement (mass/volume) 35 g/dL 32-36 Automated erythrocyte distribution width ratio 13. 4 % 10.0- 14.5 Automated blood platelet count (count/volume) 185 10*3/uL 130-400 Automated blood platelet mean volume measurement 11.0 [foz_us] 7.4-10.4 Automated blood neutrophils/100 leukocytes 64 % 42-75 Automated blood lymphocytes/100 leukocytes 24 % 12-44 Blood monocytes/100 leukocytes 8 % 0-12 Automated blood eosinophils/100 leukocytes 5 % 0-10 Automated blood basophils/100 leukocytes 0 % 0-10 Blood neutrophils automated count (number/volume) 7.6 10*3 1.8-7.8 Blood lymphocytes automated count (number/volume) 2.8 10*3 1.0-4.0 Blood monocytes automated count (number/volume) 0. 9 10*3 0.0-1.0 Automated eosinophil count 0.6 10*3/uL 0 .0-0.3 Automated blood basophil count (count/volume) 0.0 10*3/uL 0.0-0.1 PT panel in platelet poor plasma by coag ulation assay - 12/03/15 20:42 Prothrombin time (PT) in platelet poor plasma by coagu lation assay 13.6 s 12.2-14.7 INR in platelet poor plasma or blood by coagulation as say 1.1 0.8-1.4 Activated partial thromboplastin time (a PTT) in platelet poor plasma bycoagulation assay - 12/03/15 20:42 Activated partial thromboplastin time (a PTT) in platelet poor plasma bycoagulation assay 33 s 24-35 Comprehensive metabolic panel - 12/03/15 20:42 Serum or plasma sodium measurement (moles/volume) 128 mmol/L 135-145 Serum or plasma potassium measurement (moles/volume) 3.3 mmol/L 3.6-5.0 Serum or plasma chloride measurement (moles/volume) 92 mmol/L 98-107 Carbon dioxide 20 mmol/L 21-32 Serum or plasma anion gap determination (moles/volume) 16 mmol/L 5-14 Serum or plasma urea nitrogen measurement (mass/volume ) 19 mg/dL 7-18 Serum or plasma creatinine measurement (mass/volume) 1.59 mg/dL 0.60-1.30 Serum or plasma urea nitrogen/creatinine mass ratio 12 NRG Serum or plasma creatinine measurement w ith calculation of estimated glomerular filtration rate 43 NRG Serum or plasma glucose measurement (mass/volume) 136 mg/dL 70-105 Serum or plasma calcium measurement (mass/volume) 8.3 mg/dL 8.5-10.1 Serum or plasma total bilirubin measurement (mass/volu me) 0.6 mg/dL 0.1-1.0 Serum or plasma alkaline phosphatase gerda surement (enzymatic activity/volume) 72 U/L 40-136 Serum or plasma aspartate aminotransfera se measurement (enzymatic activity/volume) 16 U/L 5-34 Serum or plasma alanine aminotransferase measurement (enzymatic activity/volume) 15 U/L 0-55 Serum or plasma protein measurement (mass/volume) 6.1 g/dL 6.4-8.2 Serum or plasma albumin measurement (mass/volume) 3.5 g/dL 3.2-4.5 Magnesium - 12/03/15 20:42 Magnesium 1.6 mg/dL 1.8-2.4 Serum or plasma creatine kinase measurem ent (enzymatic activity/volume) - 12/03/15 20:42 Serum or plasma creatine kinase measurem ent (enzymatic activity/volume) 431 U/L 30-200 Serum or plasma lithium measurement (mol es/volume) - 12/03/15 20:42 BNP level 18.0 pg/mL <100.0 Serum or plasma creatine kinase MB measu rement (enzymatic activity/volume) - 12/03/15 20:42 Serum or plasma creatine kinase MB measu rement (enzymatic activity/volume) 10.2 ng/mL <6.6 Serum or plasma troponin i.cardiac measu rement (mass/volume) - 12/03/15 20:42 Serum or plasma troponin i.cardiac measurement (mass/v olume) < ng/mL <0.30 Serum or plasma thyrotropin measurement by detection limit <=0.05 miu/l (units/volume) - 12/03/15 20:42 Serum or plasma thyrotropin measurement by detection limit <=0.05 miu/l (units/volume) 2.74 u[iU]/mL 0.35-4.94 Bacterial blood culture - 12/03/15 20:42 Bacterial blood culture NG NRG Arterial blood gas measurement - 6 21:00 Blood pCO2 39 mm[Hg] 35-45 Blood pO2 118 mm[Hg] 79-93 Arterial blood bicarbonate measurement (moles/volume) 23 mmol/L 23-27 Arterial blood base excess by calculation -1.7 mmo l/L -2.5-2.5 Arterial blood oxygen saturation measurement 98 % 94-100 * Inhaled oxygen flow rate 2L NRG Arterial blood pH measurement with patient temperature correction 7.39 7.37-7.43 Arterial blood carbon dioxide, total measurement (mole s/volume) 24.3 mmol/L 21.0-31.0 Body site LT RADIAL NRG Assessment of wrist artery patency prior to arterial p uncture YES-POS NRG Setting of ventilation mode NO NR G Measurement of body temperature 98.3 NRG Blood lactic acid measurement (moles/vol ume) - 12/03/15 21:08 Blood lactic acid measurement (moles/volume) 3.0 m mol/L 0.5- 2.0 Bacterial blood culture - 12/03/15 21:08 Bacterial blood culture NG NRG Complete urinalysis with reflex to cultu re - 12/03/15 21:14 Urine color determination YELLOW NRG Urine clarity determination CLEAR NR G Urine pH measurement by test strip 5 5-9 Specific gravity of urine by test strip 1.015 1.016-1.022 Urine protein assay by test strip, semi-quantitative 2+ NEGATIVE Urine glucose detection by automated test strip NE GATIVE NEGATIVE Erythrocytes detection in urine sediment by light micr oscopy NEGATIVE NEGATIVE Urine ketones detection by automated test strip NE GATIVE NEGATIVE Urine nitrite detection by test strip NEGATIVE NEGATIVE Urine total bilirubin detection by test strip NEGA TIVE NEGATIVE Urine urobilinogen measurement by automated test strip (mass/volume) NORMAL NORMAL Urine leukocyte esterase detection by dipstick 3+ NEGATIVE Automated urine sediment erythrocyte cou nt by microscopy (number/high power field) NONE NRG Automated urine sediment leukocyte count by microscopy (number/high power field) [HPF] NRG Bacteria detection in urine sediment by light microsco py FEW NRG Squamous epithelial cells detection in u rine sediment by light microscopy 0-2 NRG Crystals detection in urine sediment by light microsco py NONE NRG Casts detection in urine sediment by light microscopy NONE NRG Mucus detection in urine sediment by light microscopy NEGATIVE NRG Complete urinalysis with reflex to culture NO NRG Bacterial urine culture - 12/03/15 21:14 URINE CULTURE RESULTS <10,000/ML NRG Serum or plasma lactate measurement (mol es/volume) - 12/03/15 23:15 Serum or plasma lactate measurement (moles/volume) 1.5 mmol/L 0.5-2.0 Complete blood count (CBC) with automate d white blood cell (WBC) differential - 12/04/15 04:53 Blood leukocytes automated count (number/volume) 11.1 10*3/uL 4.3-11.0 Blood erythrocytes automated count (number/volume) 4.66 10*6/uL 4.35-5.85 Venous blood hemoglobin measurement (mass/volume) 13.9 g/dL 13.3-17.7 Blood hematocrit (volume fraction) 40 % 40-54 Automated erythrocyte mean corpuscular volume 85 [ foz_us] 80-99 Automated erythrocyte mean corpuscular h emoglobin (mass per erythrocyte) 30 pg 25-34 Automated erythrocyte mean corpuscular h emoglobin concentration measurement (mass/volume) 35 g/dL 32-36 Automated erythrocyte distribution width ratio 13. 3 % 10.0- 14.5 Automated blood platelet count (count/volume) 160 10*3/uL 130-400 Automated blood platelet mean volume measurement 10.9 [foz_us] 7.4-10.4 Automated blood neutrophils/100 leukocytes 95 % 42-75 Automated blood lymphocytes/100 leukocytes 5 % 12-44 Blood monocytes/100 leukocytes 0 % 0-12 Automated blood eosinophils/100 leukocytes 0 % 0-10 Automated blood basophils/100 leukocytes 0 % 0-10 Blood neutrophils automated count (number/volume) 10.6 10*3 1.8-7.8 Blood lymphocytes automated count (number/volume) 0.5 10*3 1.0-4.0 Blood monocytes automated count (number/volume) 0. 0 10*3 0.0-1.0 Automated eosinophil count 0.0 10*3/uL 0 .0-0.3 Automated blood basophil count (count/volume) 0.0 10*3/uL 0.0-0.1 Comprehensive metabolic panel - 12/04/15 04:53 Serum or plasma sodium measurement (moles/volume) 127 mmol/L 135-145 Serum or plasma potassium measurement (moles/volume) 4.6 mmol/L 3.6-5.0 Serum or plasma chloride measurement (moles/volume) 93 mmol/L 98-107 Carbon dioxide 22 mmol/L 21-32 Serum or plasma anion gap determination (moles/volume) 12 mmol/L 5-14 Serum or plasma urea nitrogen measurement (mass/volume ) 17 mg/dL 7-18 Serum or plasma creatinine measurement (mass/volume) 1.51 mg/dL 0.60-1.30 Serum or plasma urea nitrogen/creatinine mass ratio 11 NRG Serum or plasma creatinine measurement w ith calculation of estimated glomerular filtration rate 46 NRG Serum or plasma glucose measurement (mass/volume) 357 mg/dL 70-105 Serum or plasma calcium measurement (mass/volume) 8.3 mg/dL 8.5-10.1 Serum or plasma total bilirubin measurement (mass/volu me) 0.5 mg/dL 0.1-1.0 Serum or plasma alkaline phosphatase gerda surement (enzymatic activity/volume) 86 U/L 40-136 Serum or plasma aspartate aminotransfera se measurement (enzymatic activity/volume) 18 U/L 5-34 Serum or plasma alanine aminotransferase measurement (enzymatic activity/volume) 16 U/L 0-55 Serum or plasma protein measurement (mass/volume) 6.5 g/dL 6.4-8.2 Serum or plasma albumin measurement (mass/volume) 3.7 g/dL 3.2-4.5 Capillary blood glucose measurement by g lucometer (mass/volume) - 12/04/15 11:27 Capillary blood glucose measurement by glucometer (mas s/volume) 311 mg/dL 70-110 Capillary blood glucose measurement by g lucometer (mass/volume) - 12/04/15 16:01 Capillary blood glucose measurement by glucometer (mas s/volume) 280 mg/dL 70-110 Capillary blood glucose measurement by g lucometer (mass/volume) - 12/04/15 20:43 Capillary blood glucose measurement by glucometer (mas s/volume) 228 mg/dL 70-110 Automated blood complete blood count [facility] panel - 12/05/15 05:26 Blood leukocytes automated count (number/volume) 17.3 10*3/uL 4.3-11.0 Blood erythrocytes automated count (number/volume) 4.58 10*6/uL 4.35-5.85 Venous blood hemoglobin measurement (mass/volume) 14.0 g/dL 13.3-17.7 Blood hematocrit (volume fraction) 40 % 40-54 Automated erythrocyte mean corpuscular volume 87 [ foz_us] 80-99 Automated erythrocyte mean corpuscular h emoglobin (mass per erythrocyte) 31 pg 25-34 Automated erythrocyte mean corpuscular h emoglobin concentration measurement (mass/volume) 35 g/dL 32-36 Automated erythrocyte distribution width ratio 13. 4 % 10.0- 14.5 Automated blood platelet count (count/volume) 196 10*3/uL 130-400 Automated blood platelet mean volume measurement 10.6 [foz_us] 7.4-10.4 Comprehensive metabolic panel - 12/05/15 05:26 Serum or plasma sodium measurement (moles/volume) 133 mmol/L 135-145 Serum or plasma potassium measurement (moles/volume) 4.4 mmol/L 3.6-5.0 Serum or plasma chloride measurement (moles/volume) 99 mmol/L 98-107 Carbon dioxide 26 mmol/L 21-32 Serum or plasma anion gap determination (moles/volume) 8 mmol/L 5-14 Serum or plasma urea nitrogen measurement (mass/volume ) 16 mg/dL 7-18 Serum or plasma creatinine measurement (mass/volume) 1.11 mg/dL 0.60-1.30 Serum or plasma urea nitrogen/creatinine mass ratio 14 NRG Serum or plasma creatinine measurement w ith calculation of estimated glomerular filtration rate > NRG Serum or plasma glucose measurement (mass/volume) 188 mg/dL 70-105 Serum or plasma calcium measurement (mass/volume) 8.5 mg/dL 8.5-10.1 Serum or plasma total bilirubin measurement (mass/volu me) 0.3 mg/dL 0.1-1.0 Serum or plasma alkaline phosphatase gerda surement (enzymatic activity/volume) 67 U/L 40-136 Serum or plasma aspartate aminotransfera se measurement (enzymatic activity/volume) 18 U/L 5-34 Serum or plasma alanine aminotransferase measurement (enzymatic activity/volume) 22 U/L 0-55 Serum or plasma protein measurement (mass/volume) 6.0 g/dL 6.4-8.2 Serum or plasma albumin measurement (mass/volume) 3.3 g/dL 3.2-4.5 Hemoglobin A1c - 12/05/15 05:26 Hemoglobin A1c 6.3 % 4.5-6.2 Capillary blood glucose measurement by g lucometer (mass/volume) - 12/05/15 05:44 Capillary blood glucose measurement by glucometer (mas s/volume) 181 mg/dL 70-110 Capillary blood glucose measurement by g lucometer (mass/volume) - 12/05/15 10:50 Capillary blood glucose measurement by glucometer (mas s/volume) 209 mg/dL 70-110 Capillary blood glucose measurement by g lucometer (mass/volume) - 12/05/15 15:50 Capillary blood glucose measurement by glucometer (mas s/volume) 173 mg/dL 70-110 Capillary blood glucose measurement by g lucometer (mass/volume) - 12/05/15 21:32 Capillary blood glucose measurement by glucometer (mas s/volume) 221 mg/dL 70-110 Capillary blood glucose measurement by g lucometer (mass/volume) - 12/06/15 05:55 Capillary blood glucose measurement by glucometer (mas s/volume) 103 mg/dL 70-110 Capillary blood glucose measurement by g lucometer (mass/volume) - 12/06/15 11:02 Capillary blood glucose measurement by glucometer (mas s/volume) 149 mg/dL 70-110 Capillary blood glucose measurement by g lucometer (mass/volume) - 12/06/15 16:19 Capillary blood glucose measurement by glucometer (mas s/volume) 169 mg/dL 70-110 Capillary blood glucose measurement by g lucometer (mass/volume) - 12/06/15 20:42 Capillary blood glucose measurement by glucometer (mas s/volume) 192 mg/dL 70-110 Capillary blood glucose measurement by g lucometer (mass/volume) - 12/07/15 05:51 Capillary blood glucose measurement by glucometer (mas s/volume) 164 mg/dL 70-110 Capillary blood glucose measurement by g lucometer (mass/volume) - 12/07/15 11:09 Capillary blood glucose measurement by glucometer (mas s/volume) 162 mg/dL 70-110 Complete blood count (CBC) with automate d white blood cell (WBC) differential - 12/07/15 12:14 Blood leukocytes automated count (number/volume) 9.9 10*3/uL 4.3-11.0 Blood erythrocytes automated count (number/volume) 4.92 10*6/uL 4.35-5.85 Venous blood hemoglobin measurement (mass/volume) 14.7 g/dL 13.3-17.7 Blood hematocrit (volume fraction) 43 % 40-54 Automated erythrocyte mean corpuscular volume 87 [ foz_us] 80-99 Automated erythrocyte mean corpuscular h emoglobin (mass per erythrocyte) 30 pg 25-34 Automated erythrocyte mean corpuscular h emoglobin concentration measurement (mass/volume) 34 g/dL 32-36 Automated erythrocyte distribution width ratio 13. 8 % 10.0- 14.5 Automated blood platelet count (count/volume) 222 10*3/uL 130-400 Automated blood platelet mean volume measurement 10.2 [foz_us] 7.4-10.4 Automated blood neutrophils/100 leukocytes 64 % 42-75 Automated blood lymphocytes/100 leukocytes 22 % 12-44 Blood monocytes/100 leukocytes 9 % 0-12 Automated blood eosinophils/100 leukocytes 5 % 0-10 Automated blood basophils/100 leukocytes 0 % 0-10 Blood neutrophils automated count (number/volume) 6.3 10*3 1.8-7.8 Blood lymphocytes automated count (number/volume) 2.2 10*3 1.0-4.0 Blood monocytes automated count (number/volume) 0. 9 10*3 0.0-1.0 Automated eosinophil count 0.5 10*3/uL 0 .0-0.3 Automated blood basophil count (count/volume) 0.0 10*3/uL 0.0-0.1 Comprehensive metabolic panel - 12/07/15 12:14 Serum or plasma sodium measurement (moles/volume) 130 mmol/L 135-145 Serum or plasma potassium measurement (moles/volume) 4.9 mmol/L 3.6-5.0 Serum or plasma chloride measurement (moles/volume) 92 mmol/L 98-107 Carbon dioxide 30 mmol/L 21-32 Serum or plasma anion gap determination (moles/volume) 8 mmol/L 5-14 Serum or plasma urea nitrogen measurement (mass/volume ) 20 mg/dL 7-18 Serum or plasma creatinine measurement (mass/volume) 1.25 mg/dL 0.60-1.30 Serum or plasma urea nitrogen/creatinine mass ratio 16 NRG Serum or plasma creatinine measurement w ith calculation of estimated glomerular filtration rate 57 NRG Serum or plasma glucose measurement (mass/volume) 155 mg/dL 70-105 Serum or plasma calcium measurement (mass/volume) 8.8 mg/dL 8.5-10.1 Serum or plasma total bilirubin measurement (mass/volu me) 0.5 mg/dL 0.1-1.0 Serum or plasma alkaline phosphatase gerda surement (enzymatic activity/volume) 76 U/L 40-136 Serum or plasma aspartate aminotransfera se measurement (enzymatic activity/volume) 13 U/L 5-34 Serum or plasma alanine aminotransferase measurement (enzymatic activity/volume) 20 U/L 0-55 Serum or plasma protein measurement (mass/volume) 6.3 g/dL 6.4-8.2 Serum or plasma albumin measurement (mass/volume) 3.6 g/dL 3.2-4.5 Capillary blood glucose measurement by g lucometer (mass/volume) - 12/07/15 15:58 Capillary blood glucose measurement by glucometer (mas s/volume) 130 mg/dL 70-110 Capillary blood glucose measurement by g lucometer (mass/volume) - 12/07/15 17:50 Capillary blood glucose measurement by glucometer (mas s/volume) 127 mg/dL 70-110 Capillary blood glucose measurement by g lucometer (mass/volume) - 12/07/15 21:05 Capillary blood glucose measurement by glucometer (mas s/volume) 197 mg/dL 70-110 Capillary blood glucose measurement by g lucometer (mass/volume) - 12/08/15 06:02 Capillary blood glucose measurement by glucometer (mas s/volume) 171 mg/dL 70-110 Complete blood count (CBC) with automate d white blood cell (WBC) differential - 02/19/16 09:19 Blood leukocytes automated count (number/volume) 8.2 10*3/uL 4.3-11.0 Blood erythrocytes automated count (number/volume) 4.66 10*6/uL 4.35-5.85 Venous blood hemoglobin measurement (mass/volume) 14.0 g/dL 13.3-17.7 Blood hematocrit (volume fraction) 41 % 40-54 Automated erythrocyte mean corpuscular volume 89 [ foz_us] 80-99 Automated erythrocyte mean corpuscular h emoglobin (mass per erythrocyte) 30 pg 25-34 Automated erythrocyte mean corpuscular h emoglobin concentration measurement (mass/volume) 34 g/dL 32-36 Automated erythrocyte distribution width ratio 13. 4 % 10.0- 14.5 Automated blood platelet count (count/volume) 190 10*3/uL 130-400 Automated blood platelet mean volume measurement 10.9 [foz_us] 7.4-10.4 Automated blood neutrophils/100 leukocytes 58 % 42-75 Automated blood lymphocytes/100 leukocytes 29 % 12-44 Blood monocytes/100 leukocytes 9 % 0-12 Automated blood eosinophils/100 leukocytes 4 % 0-10 Automated blood basophils/100 leukocytes 0 % 0-10 Blood neutrophils automated count (number/volume) 4.7 10*3 1.8-7.8 Blood lymphocytes automated count (number/volume) 2.4 10*3 1.0-4.0 Blood monocytes automated count (number/volume) 0. 8 10*3 0.0-1.0 Automated eosinophil count 0.3 10*3/uL 0 .0-0.3 Automated blood basophil count (count/volume) 0.0 10*3/uL 0.0-0.1 Comprehensive metabolic panel - 02/19/16 09:19 Serum or plasma sodium measurement (moles/volume) 135 mmol/L 135-145 Serum or plasma potassium measurement (moles/volume) 4.0 mmol/L 3.6-5.0 Serum or plasma chloride measurement (moles/volume) 96 mmol/L 98-107 Carbon dioxide 28 mmol/L 21-32 Serum or plasma anion gap determination (moles/volume) 11 mmol/L 5-14 Serum or plasma urea nitrogen measurement (mass/volume ) 25 mg/dL 7-18 Serum or plasma creatinine measurement (mass/volume) 2.41 mg/dL 0.60-1.30 Serum or plasma urea nitrogen/creatinine mass ratio 10 NRG Serum or plasma creatinine measurement w ith calculation of estimated glomerular filtration rate 27 NRG Serum or plasma glucose measurement (mass/volume) 120 mg/dL 70-105 Serum or plasma calcium measurement (mass/volume) 8.8 mg/dL 8.5-10.1 Serum or plasma total bilirubin measurement (mass/volu me) 0.7 mg/dL 0.1-1.0 Serum or plasma alkaline phosphatase gerda surement (enzymatic activity/volume) 78 U/L 40-136 Serum or plasma aspartate aminotransfera se measurement (enzymatic activity/volume) 17 U/L 5-34 Serum or plasma alanine aminotransferase measurement (enzymatic activity/volume) 17 U/L 0-55 Serum or plasma protein measurement (mass/volume) 6.5 g/dL 6.4-8.2 Serum or plasma albumin measurement (mass/volume) 3.6 g/dL 3.2-4.5 Serum or plasma troponin i.cardiac measu rement (mass/volume) - 02/19/16 09:19 Serum or plasma troponin i.cardiac measurement (mass/v olume) < ng/mL <0.30 Serum or plasma lithium measurement (mol es/volume) - 02/19/16 09:19 BNP level 30.4 pg/mL <100.0 Bacterial blood culture - 02/19/16 09:19 Bacterial blood culture NG NRG Blood lactic acid measurement (moles/vol ume) - 02/19/16 09:48 Blood lactic acid measurement (moles/volume) 1.8 m mol/L 0.5- 2.0 Bacterial blood culture - 02/19/16 11:06 Bacterial blood culture NG NRG Capillary blood glucose measurement by g lucometer (mass/volume) - 02/19/16 21:24 Capillary blood glucose measurement by glucometer (mas s/volume) 250 mg/dL 70-110 Complete blood count (CBC) with automate d white blood cell (WBC) differential - 02/20/16 04:20 Blood leukocytes automated count (number/volume) 10.5 10*3/uL 4.3-11.0 Blood erythrocytes automated count (number/volume) 4.47 10*6/uL 4.35-5.85 Venous blood hemoglobin measurement (mass/volume) 13.7 g/dL 13.3-17.7 Blood hematocrit (volume fraction) 39 % 40-54 Automated erythrocyte mean corpuscular volume 87 [ foz_us] 80-99 Automated erythrocyte mean corpuscular h emoglobin (mass per erythrocyte) 31 pg 25-34 Automated erythrocyte mean corpuscular h emoglobin concentration measurement (mass/volume) 35 g/dL 32-36 Automated erythrocyte distribution width ratio 12. 7 % 10.0- 14.5 Automated blood platelet count (count/volume) 179 10*3/uL 130-400 Automated blood platelet mean volume measurement 11.2 [foz_us] 7.4-10.4 Automated blood neutrophils/100 leukocytes 81 % 42-75 Automated blood lymphocytes/100 leukocytes 15 % 12-44 Blood monocytes/100 leukocytes 4 % 0-12 Automated blood eosinophils/100 leukocytes 0 % 0-10 Automated blood basophils/100 leukocytes 0 % 0-10 Blood neutrophils automated count (number/volume) 8.5 10*3 1.8-7.8 Blood lymphocytes automated count (number/volume) 1.6 10*3 1.0-4.0 Blood monocytes automated count (number/volume) 0. 4 10*3 0.0-1.0 Automated eosinophil count 0.0 10*3/uL 0 .0-0.3 Automated blood basophil count (count/volume) 0.0 10*3/uL 0.0-0.1 Comprehensive metabolic panel - 02/20/16 04:20 Serum or plasma sodium measurement (moles/volume) 136 mmol/L 135-145 Serum or plasma potassium measurement (moles/volume) 3.9 mmol/L 3.6-5.0 Serum or plasma chloride measurement (moles/volume) 100 mmol/L 98-107 Carbon dioxide 27 mmol/L 21-32 Serum or plasma anion gap determination (moles/volume) 9 mmol/L 5-14 Serum or plasma urea nitrogen measurement (mass/volume ) 18 mg/dL 7-18 Serum or plasma creatinine measurement (mass/volume) 1.46 mg/dL 0.60-1.30 Serum or plasma urea nitrogen/creatinine mass ratio 12 NRG Serum or plasma creatinine measurement w ith calculation of estimated glomerular filtration rate 48 NRG Serum or plasma glucose measurement (mass/volume) 177 mg/dL 70-105 Serum or plasma calcium measurement (mass/volume) 9.2 mg/dL 8.5-10.1 Serum or plasma total bilirubin measurement (mass/volu me) 0.5 mg/dL 0.1-1.0 Serum or plasma alkaline phosphatase gerda surement (enzymatic activity/volume) 81 U/L 40-136 Serum or plasma aspartate aminotransfera se measurement (enzymatic activity/volume) 29 U/L 5-34 Serum or plasma alanine aminotransferase measurement (enzymatic activity/volume) 34 U/L 0-55 Serum or plasma protein measurement (mass/volume) 6.6 g/dL 6.4-8.2 Serum or plasma albumin measurement (mass/volume) 3.7 g/dL 3.2-4.5 Capillary blood glucose measurement by g lucometer (mass/volume) - 02/20/16 05:04 Capillary blood glucose measurement by glucometer (mas s/volume) 165 mg/dL 70-110 C DIFFICILE AG + TOXIN A/B. - 02/20/16 1 1:41 RESULTS NEGATIVE FOR ANTIGEN AND TOXIN A/B NRG Capillary blood glucose measurement by g lucometer (mass/volume) - 02/20/16 11:46 Capillary blood glucose measurement by glucometer (mas s/volume) 148 mg/dL 70-110 Capillary blood glucose measurement by g lucometer (mass/volume) - 02/20/16 15:55 Capillary blood glucose measurement by glucometer (mas s/volume) 172 mg/dL 70-110 Capillary blood glucose measurement by g lucometer (mass/volume) - 02/20/16 21:04 Capillary blood glucose measurement by glucometer (mas s/volume) 253 mg/dL 70-110 Blood CBC with ordered manual differenti al panel - 02/21/16 05:30 Blood leukocytes automated count (number/volume) 8.9 10*3/uL 4.3-11.0 Blood erythrocytes automated count (number/volume) 4.88 10*6/uL 4.35-5.85 Venous blood hemoglobin measurement (mass/volume) 14.8 g/dL 13.3-17.7 Blood hematocrit (volume fraction) 43 % 40-54 Automated erythrocyte mean corpuscular volume 88 [ foz_us] 80-99 Automated erythrocyte mean corpuscular h emoglobin (mass per erythrocyte) 30 pg 25-34 Automated erythrocyte mean corpuscular h emoglobin concentration measurement (mass/volume) 35 g/dL 32-36 Automated erythrocyte distribution width ratio 13. 3 % 10.0- 14.5 Automated blood platelet count (count/volume) 184 10*3/uL 130-400 Automated blood platelet mean volume measurement 10.5 [foz_us] 7.4-10.4 Automated blood neutrophils/100 leukocytes 62 % 42-75 Automated blood lymphocytes/100 leukocytes 24 % 12-44 Blood monocytes/100 leukocytes 12 % NRG Automated blood eosinophils/100 leukocytes 3 % 0-10 Automated blood basophils/100 leukocytes 0 % 0-10 Blood neutrophils automated count (number/volume) 5.5 10*3 1.8-7.8 Blood lymphocytes automated count (number/volume) 2.2 10*3 1.0-4.0 Blood monocytes automated count (number/volume) 1. 0 10*3 0.0-1.0 Automated eosinophil count 0.2 10*3/uL 0 .0-0.3 Automated blood basophil count (count/volume) 0.0 10*3/uL 0.0-0.1 Manual blood segmented neutrophils/100 leukocytes 58 % NRG Blood band neutrophils/100 leukocytes 0 % NRG Manual blood lymphocytes/100 leukocytes 18 % NRG Manual eosinophils/100 leukocytes in nose 3 % NRG Manual blood basophils/100 leukocytes 0 % NRG Blood lymphocytes variant/100 leukocytes 9 % NRG Blood toxic granules detection by light microscopy 1+ NRG Comprehensive metabolic panel - 02/21/16 05:30 Serum or plasma sodium measurement (moles/volume) 140 mmol/L 135-145 Serum or plasma potassium measurement (moles/volume) 3.9 mmol/L 3.6-5.0 Serum or plasma chloride measurement (moles/volume) 101 mmol/L 98-107 Carbon dioxide 31 mmol/L 21-32 Serum or plasma anion gap determination (moles/volume) 8 mmol/L 5-14 Serum or plasma urea nitrogen measurement (mass/volume ) 16 mg/dL 7-18 Serum or plasma creatinine measurement (mass/volume) 1.30 mg/dL 0.60-1.30 Serum or plasma urea nitrogen/creatinine mass ratio 12 NRG Serum or plasma creatinine measurement w ith calculation of estimated glomerular filtration rate 55 NRG Serum or plasma glucose measurement (mass/volume) 118 mg/dL 70-105 Serum or plasma calcium measurement (mass/volume) 9.2 mg/dL 8.5-10.1 Serum or plasma total bilirubin measurement (mass/volu me) 0.5 mg/dL 0.1-1.0 Serum or plasma alkaline phosphatase gerda surement (enzymatic activity/volume) 81 U/L 40-136 Serum or plasma aspartate aminotransfera se measurement (enzymatic activity/volume) 23 U/L 5-34 Serum or plasma alanine aminotransferase measurement (enzymatic activity/volume) 37 U/L 0-55 Serum or plasma protein measurement (mass/volume) 6.8 g/dL 6.4-8.2 Serum or plasma albumin measurement (mass/volume) 3.8 g/dL 3.2-4.5 Capillary blood glucose measurement by g lucometer (mass/volume) - 02/21/16 10:35 Capillary blood glucose measurement by glucometer (mas s/volume) 163 mg/dL 70-110 Capillary blood glucose measurement by g lucometer (mass/volume) - 02/21/16 16:01 Capillary blood glucose measurement by glucometer (mas s/volume) 171 mg/dL 70-110 Capillary blood glucose measurement by g lucometer (mass/volume) - 02/21/16 20:16 Capillary blood glucose measurement by glucometer (mas s/volume) 183 mg/dL 70-110 Capillary blood glucose measurement by g lucometer (mass/volume) - 16 10:40 Capillary blood glucose measurement by glucometer (mas s/volume) 165 mg/dL 70-110 Complete blood count (CBC) with automate d white blood cell (WBC) differential - 02/24/16 18:28 Blood leukocytes automated count (number/volume) 10.1 10*3/uL 4.3-11.0 Blood erythrocytes automated count (number/volume) 4.97 10*6/uL 4.35-5.85 Venous blood hemoglobin measurement (mass/volume) 15.0 g/dL 13.3-17.7 Blood hematocrit (volume fraction) 42 % 40-54 Automated erythrocyte mean corpuscular volume 84 [ foz_us] 80-99 Automated erythrocyte mean corpuscular h emoglobin (mass per erythrocyte) 30 pg 25-34 Automated erythrocyte mean corpuscular h emoglobin concentration measurement (mass/volume) 36 g/dL 32-36 Automated erythrocyte distribution width ratio 13. 2 % 10.0- 14.5 Automated blood platelet count (count/volume) 185 10*3/uL 130-400 Automated blood platelet mean volume measurement 11.0 [foz_us] 7.4-10.4 Automated blood neutrophils/100 leukocytes 64 % 42-75 Automated blood lymphocytes/100 leukocytes 24 % 12-44 Blood monocytes/100 leukocytes 7 % 0-12 Automated blood eosinophils/100 leukocytes 5 % 0-10 Automated blood basophils/100 leukocytes 0 % 0-10 Blood neutrophils automated count (number/volume) 6.5 10*3 1.8-7.8 Blood lymphocytes automated count (number/volume) 2.5 10*3 1.0-4.0 Blood monocytes automated count (number/volume) 0. 7 10*3 0.0-1.0 Automated eosinophil count 0.5 10*3/uL 0 .0-0.3 Automated blood basophil count (count/volume) 0.0 10*3/uL 0.0-0.1 PT panel in platelet poor plasma by coag ulation assay - 02/24/16 18:28 Prothrombin time (PT) in platelet poor plasma by coagu lation assay 14.0 s 12.2-14.7 INR in platelet poor plasma or blood by coagulation as say 1.1 0.8-1.4 Activated partial thromboplastin time (a PTT) in platelet poor plasma bycoagulation assay - 02/24/16 18:28 Activated partial thromboplastin time (a PTT) in platelet poor plasma bycoagulation assay 29 s 24-35 Comprehensive metabolic panel - 02/24/16 18:28 Serum or plasma sodium measurement (moles/volume) 127 mmol/L 135-145 Serum or plasma potassium measurement (moles/volume) 4.1 mmol/L 3.6-5.0 Serum or plasma chloride measurement (moles/volume) 90 mmol/L 98-107 Carbon dioxide 27 mmol/L 21-32 Serum or plasma anion gap determination (moles/volume) 10 mmol/L 5-14 Serum or plasma urea nitrogen measurement (mass/volume ) 21 mg/dL 7-18 Serum or plasma creatinine measurement (mass/volume) 1.42 mg/dL 0.60-1.30 Serum or plasma urea nitrogen/creatinine mass ratio 15 NRG Serum or plasma creatinine measurement w ith calculation of estimated glomerular filtration rate 49 NRG Serum or plasma glucose measurement (mass/volume) 205 mg/dL 70-105 Serum or plasma calcium measurement (mass/volume) 8.3 mg/dL 8.5-10.1 Serum or plasma total bilirubin measurement (mass/volu me) 0.6 mg/dL 0.1-1.0 Serum or plasma alkaline phosphatase gerda surement (enzymatic activity/volume) 80 U/L 40-136 Serum or plasma aspartate aminotransfera se measurement (enzymatic activity/volume) 28 U/L 5-34 Serum or plasma alanine aminotransferase measurement (enzymatic activity/volume) 34 U/L 0-55 Serum or plasma protein measurement (mass/volume) 6.7 g/dL 6.4-8.2 Serum or plasma albumin measurement (mass/volume) 3.7 g/dL 3.2-4.5 Magnesium - 02/24/16 18:28 Magnesium 2.2 mg/dL 1.8-2.4 Serum or plasma troponin i.cardiac measu rement (mass/volume) - 02/24/16 18:28 Serum or plasma troponin i.cardiac measurement (mass/v olume) < ng/mL <0.30 Serum or plasma troponin i.cardiac measu rement (mass/volume) - 02/24/16 18:54 Serum or plasma troponin i.cardiac measurement (mass/v olume) < ng/mL <0.30 Serum or plasma troponin i.cardiac measu rement (mass/volume) - 02/24/16 20:55 Serum or plasma troponin i.cardiac measurement (mass/v olume) < ng/mL <0.30 Complete blood count (CBC) with automate d white blood cell (WBC) differential - 03/04/16 11:25 Blood leukocytes automated count (number/volume) 8.9 10*3/uL 4.3-11.0 Blood erythrocytes automated count (number/volume) 4.43 10*6/uL 4.35-5.85 Venous blood hemoglobin measurement (mass/volume) 13.3 g/dL 13.3-17.7 Blood hematocrit (volume fraction) 39 % 40-54 Automated erythrocyte mean corpuscular volume 88 [ foz_us] 80-99 Automated erythrocyte mean corpuscular h emoglobin (mass per erythrocyte) 30 pg 25-34 Automated erythrocyte mean corpuscular h emoglobin concentration measurement (mass/volume) 34 g/dL 32-36 Automated erythrocyte distribution width ratio 13. 2 % 10.0- 14.5 Automated blood platelet count (count/volume) 214 10*3/uL 130-400 Automated blood platelet mean volume measurement 11.1 [foz_us] 7.4-10.4 Automated blood neutrophils/100 leukocytes 65 % 42-75 Automated blood lymphocytes/100 leukocytes 25 % 12-44 Blood monocytes/100 leukocytes 7 % 0-12 Automated blood eosinophils/100 leukocytes 4 % 0-10 Automated blood basophils/100 leukocytes 0 % 0-10 Blood neutrophils automated count (number/volume) 5.7 10*3 1.8-7.8 Blood lymphocytes automated count (number/volume) 2.2 10*3 1.0-4.0 Blood monocytes automated count (number/volume) 0. 6 10*3 0.0-1.0 Automated eosinophil count 0.3 10*3/uL 0 .0-0.3 Automated blood basophil count (count/volume) 0.0 10*3/uL 0.0-0.1 Comprehensive metabolic panel - 03/04/16 11:25 Serum or plasma sodium measurement (moles/volume) 135 mmol/L 135-145 Serum or plasma potassium measurement (moles/volume) 4.1 mmol/L 3.6-5.0 Serum or plasma chloride measurement (moles/volume) 99 mmol/L 98-107 Carbon dioxide 27 mmol/L 21-32 Serum or plasma anion gap determination (moles/volume) 9 mmol/L 5-14 Serum or plasma urea nitrogen measurement (mass/volume ) 16 mg/dL 7-18 Serum or plasma creatinine measurement (mass/volume) 1.78 mg/dL 0.60-1.30 Serum or plasma urea nitrogen/creatinine mass ratio 9 NRG Serum or plasma creatinine measurement w ith calculation of estimated glomerular filtration rate 38 NRG Serum or plasma glucose measurement (mass/volume) 174 mg/dL 70-105 Serum or plasma calcium measurement (mass/volume) 8.6 mg/dL 8.5-10.1 Serum or plasma total bilirubin measurement (mass/volu me) 0.7 mg/dL 0.1-1.0 Serum or plasma alkaline phosphatase gerda surement (enzymatic activity/volume) 90 U/L 40-136 Serum or plasma aspartate aminotransfera se measurement (enzymatic activity/volume) 12 U/L 5-34 Serum or plasma alanine aminotransferase measurement (enzymatic activity/volume) 21 U/L 0-55 Serum or plasma protein measurement (mass/volume) 6.3 g/dL 6.4-8.2 Serum or plasma albumin measurement (mass/volume) 3.5 g/dL 3.2-4.5 Complete urinalysis with reflex to cultu re - 03/04/16 13:44 Urine color determination YELLOW NRG Urine clarity determination CLEAR NR G Urine pH measurement by test strip 7 5-9 Specific gravity of urine by test strip 1.005 1.016-1.022 Urine protein assay by test strip, semi-quantitative 1+ NEGATIVE Urine glucose detection by automated test strip NE GATIVE NEGATIVE Erythrocytes detection in urine sediment by light micr oscopy NEGATIVE NEGATIVE Urine ketones detection by automated test strip NE GATIVE NEGATIVE Urine nitrite detection by test strip NEGATIVE NEGATIVE Urine total bilirubin detection by test strip NEGA TIVE NEGATIVE Urine urobilinogen measurement by automated test strip (mass/volume) NORMAL NORMAL Urine leukocyte esterase detection by dipstick NEG ATIVE NEGATIVE Automated urine sediment erythrocyte cou nt by microscopy (number/high power field) NONE NRG Automated urine sediment leukocyte count by microscopy (number/high power field) [HPF] NRG Bacteria detection in urine sediment by light microsco py TRACE NRG Squamous epithelial cells detection in u rine sediment by light microscopy NONE NRG Crystals detection in urine sediment by light microsco py NONE NRG Casts detection in urine sediment by light microscopy NONE NRG Mucus detection in urine sediment by light microscopy NEGATIVE NRG Complete urinalysis with reflex to culture NO NRG Complete blood count (CBC) with automate d white blood cell (WBC) differential - 03/20/16 14:33 Blood leukocytes automated count (number/volume) 13.0 10*3/uL 4.3-11.0 Blood erythrocytes automated count (number/volume) 4.64 10*6/uL 4.35-5.85 Venous blood hemoglobin measurement (mass/volume) 13.9 g/dL 13.3-17.7 Blood hematocrit (volume fraction) 41 % 40-54 Automated erythrocyte mean corpuscular volume 88 [ foz_us] 80-99 Automated erythrocyte mean corpuscular h emoglobin (mass per erythrocyte) 30 pg 25-34 Automated erythrocyte mean corpuscular h emoglobin concentration measurement (mass/volume) 34 g/dL 32-36 Automated erythrocyte distribution width ratio 13. 6 % 10.0- 14.5 Automated blood platelet count (count/volume) 184 10*3/uL 130-400 Automated blood platelet mean volume measurement 11.2 [foz_us] 7.4-10.4 Automated blood neutrophils/100 leukocytes 71 % 42-75 Automated blood lymphocytes/100 leukocytes 17 % 12-44 Blood monocytes/100 leukocytes 9 % 0-12 Automated blood eosinophils/100 leukocytes 2 % 0-10 Automated blood basophils/100 leukocytes 0 % 0-10 Blood neutrophils automated count (number/volume) 9.3 10*3 1.8-7.8 Blood lymphocytes automated count (number/volume) 2.2 10*3 1.0-4.0 Blood monocytes automated count (number/volume) 1. 2 10*3 0.0-1.0 Automated eosinophil count 0.3 10*3/uL 0 .0-0.3 Automated blood basophil count (count/volume) 0.0 10*3/uL 0.0-0.1 Blood lactic acid measurement (moles/vol ume) - 03/20/16 14:33 Blood lactic acid measurement (moles/volume) 2.9 m mol/L 0.5- 2.0 Comprehensive metabolic panel - 03/20/16 14:33 Serum or plasma sodium measurement (moles/volume) 136 mmol/L 135-145 Serum or plasma potassium measurement (moles/volume) 4.2 mmol/L 3.6-5.0 Serum or plasma chloride measurement (moles/volume) 97 mmol/L 98-107 Carbon dioxide 27 mmol/L 21-32 Serum or plasma anion gap determination (moles/volume) 12 mmol/L 5-14 Serum or plasma urea nitrogen measurement (mass/volume ) 26 mg/dL 7-18 Serum or plasma creatinine measurement (mass/volume) 2.00 mg/dL 0.60-1.30 Serum or plasma urea nitrogen/creatinine mass ratio 13 NRG Serum or plasma creatinine measurement w ith calculation of estimated glomerular filtration rate 33 NRG Serum or plasma glucose measurement (mass/volume) 141 mg/dL 70-105 Serum or plasma calcium measurement (mass/volume) 8.7 mg/dL 8.5-10.1 Serum or plasma total bilirubin measurement (mass/volu me) 0.7 mg/dL 0.1-1.0 Serum or plasma alkaline phosphatase gerda surement (enzymatic activity/volume) 90 U/L 40-136 Serum or plasma aspartate aminotransfera se measurement (enzymatic activity/volume) 29 U/L 5-34 Serum or plasma alanine aminotransferase measurement (enzymatic activity/volume) 37 U/L 0-55 Serum or plasma protein measurement (mass/volume) 6.6 g/dL 6.4-8.2 Serum or plasma albumin measurement (mass/volume) 3.7 g/dL 3.2-4.5 Magnesium - 03/20/16 14:33 Magnesium 1.8 mg/dL 1.8-2.4 Serum or plasma troponin i.cardiac measu rement (mass/volume) - 03/20/16 14:33 Serum or plasma troponin i.cardiac measurement (mass/v olume) < ng/mL <0.30 Serum or plasma lithium measurement (mol es/volume) - 03/20/16 14:33 BNP level 46.4 pg/mL <100.0 Bacterial blood culture - 03/20/16 14:33 Bacterial blood culture NG NRG Influenza virus A and B antigen detectio n - 03/20/16 14:47 FLU RESULT NEGATIVE FOR INFLUENZA A AND B ANTIGENS BY IA NRG Bacterial blood culture - 03/20/16 14:50 Bacterial blood culture NG NRG Complete urinalysis with reflex to cultu re - 03/20/16 15:14 Urine color determination YELLOW NRG Urine clarity determination CLEAR NR G Urine pH measurement by test strip 6 5-9 Specific gravity of urine by test strip 1.010 1.016-1.022 Urine protein assay by test strip, semi-quantitative 2+ NEGATIVE Urine glucose detection by automated test strip NE GATIVE NEGATIVE Erythrocytes detection in urine sediment by light micr oscopy NEGATIVE NEGATIVE Urine ketones detection by automated test strip NE GATIVE NEGATIVE Urine nitrite detection by test strip NEGATIVE NEGATIVE Urine total bilirubin detection by test strip NEGA TIVE NEGATIVE Urine urobilinogen measurement by automated test strip (mass/volume) NORMAL NORMAL Urine leukocyte esterase detection by dipstick 1+ NEGATIVE Automated urine sediment erythrocyte cou nt by microscopy (number/high power field) NONE NRG Automated urine sediment leukocyte count by microscopy (number/high power field) [HPF] NRG Bacteria detection in urine sediment by light microsco py NEGATIVE NRG Crystals detection in urine sediment by light microsco py NONE NRG Casts detection in urine sediment by light microscopy NONE NRG Mucus detection in urine sediment by light microscopy NEGATIVE NRG Complete urinalysis with reflex to culture NO NRG Serum or plasma lactate measurement (mol es/volume) - 03/20/16 16:25 Serum or plasma lactate measurement (moles/volume) 1.7 mmol/L 0.5-2.0 Automated blood complete blood count (he mogram) panel - 03/22/16 13:10 Blood leukocytes automated count (number/volume) 9.1 10*3/uL 4.3-11.0 Blood erythrocytes automated count (number/volume) 5.00 10*6/uL 4.35-5.85 Venous blood hemoglobin measurement (mass/volume) 14.8 g/dL 13.3-17.7 Blood hematocrit (volume fraction) 44 % 40-54 Automated erythrocyte mean corpuscular volume 87 [ foz_us] 80-99 Automated erythrocyte mean corpuscular h emoglobin (mass per erythrocyte) 30 pg 25-34 Automated erythrocyte mean corpuscular h emoglobin concentration measurement (mass/volume) 34 g/dL 32-36 Automated erythrocyte distribution width ratio 13. 5 % 10.0- 14.5 Automated blood platelet count (count/volume) 175 10*3/uL 130-400 Automated blood platelet mean volume measurement 10.9 [foz_us] 7.4-10.4 PT panel in platelet poor plasma by coag ulation assay - 03/22/16 13:10 Prothrombin time (PT) in platelet poor plasma by coagu lation assay 12.7 s 12.2-14.7 INR in platelet poor plasma or blood by coagulation as say 1.0 0.8-1.4 Activated partial thromboplastin time (a PTT) in platelet poor plasma bycoagulation assay - 03/22/16 13:10 Activated partial thromboplastin time (a PTT) in platelet poor plasma bycoagulation assay 21 s 24-35 Comprehensive metabolic panel - 03/22/16 13:10 Serum or plasma sodium measurement (moles/volume) 138 mmol/L 135-145 Serum or plasma potassium measurement (moles/volume) 4.2 mmol/L 3.6-5.0 Serum or plasma chloride measurement (moles/volume) 99 mmol/L 98-107 Carbon dioxide 27 mmol/L 21-32 Serum or plasma anion gap determination (moles/volume) 12 mmol/L 5-14 Serum or plasma urea nitrogen measurement (mass/volume ) 18 mg/dL 7-18 Serum or plasma creatinine measurement (mass/volume) 1.54 mg/dL 0.60-1.30 Serum or plasma urea nitrogen/creatinine mass ratio 12 NRG Serum or plasma creatinine measurement w ith calculation of estimated glomerular filtration rate 45 NRG Serum or plasma glucose measurement (mass/volume) 159 mg/dL 70-105 Serum or plasma calcium measurement (mass/volume) 9.9 mg/dL 8.5-10.1 Serum or plasma total bilirubin measurement (mass/volu me) 0.6 mg/dL 0.1-1.0 Serum or plasma alkaline phosphatase gerda surement (enzymatic activity/volume) 88 U/L 40-136 Serum or plasma aspartate aminotransfera se measurement (enzymatic activity/volume) 16 U/L 5-34 Serum or plasma alanine aminotransferase measurement (enzymatic activity/volume) 24 U/L 0-55 Serum or plasma protein measurement (mass/volume) 7.3 g/dL 6.4-8.2 Serum or plasma albumin measurement (mass/volume) 4.1 g/dL 3.2-4.5 Lipid 1996 panel - 03/22/16 13:10 Serum or plasma triglyceride measurement (mass/volume) 118 mg/dL <150 Serum or plasma cholesterol measurement (mass/volume) 158 mg/dL < 200 Serum or plasma cholesterol in HDL measurement (mass/v olume) 41 mg/dL 40-60 Cholesterol in LDL [mass/volume] in serum or plasma by direct assay 97 mg/dL 1-129 Serum or plasma cholesterol in VLDL measurement (mass/ volume) 24 mg/dL 5-40 Methicillin resistant Staphylococcus aur eus (MRSA) screening culture - 03/22/16 13:10 Methicillin resistant Staphylococcus aureus (MRSA) scr eening culture NEG NRG Capillary blood glucose measurement by g lucometer (mass/volume) - 03/22/16 20:09 Capillary blood glucose measurement by glucometer (mas s/volume) 156 mg/dL 70-110 Automated blood complete blood count (he mogram) panel - 03/23/16 05:45 Blood leukocytes automated count (number/volume) 6.5 10*3/uL 4.3-11.0 Blood erythrocytes automated count (number/volume) 4.17 10*6/uL 4.35-5.85 Venous blood hemoglobin measurement (mass/volume) 12.5 g/dL 13.3-17.7 Blood hematocrit (volume fraction) 37 % 40-54 Automated erythrocyte mean corpuscular volume 88 [ foz_us] 80-99 Automated erythrocyte mean corpuscular h emoglobin (mass per erythrocyte) 30 pg 25-34 Automated erythrocyte mean corpuscular h emoglobin concentration measurement (mass/volume) 34 g/dL 32-36 Automated erythrocyte distribution width ratio 13. 3 % 10.0- 14.5 Automated blood platelet count (count/volume) 167 10*3/uL 130-400 Automated blood platelet mean volume measurement 10.8 [foz_us] 7.4-10.4 Whole blood basic metabolic panel - 03/07 11/19 05:45 Serum or plasma sodium measurement (moles/volume) 136 mmol/L 135-145 Serum or plasma potassium measurement (moles/volume) 3.6 mmol/L 3.6-5.0 Serum or plasma chloride measurement (moles/volume) 100 mmol/L 98-107 Carbon dioxide 26 mmol/L 21-32 Serum or plasma anion gap determination (moles/volume) 10 mmol/L 5-14 Serum or plasma urea nitrogen measurement (mass/volume ) 15 mg/dL 7-18 Serum or plasma creatinine measurement (mass/volume) 1.47 mg/dL 0.60-1.30 Serum or plasma urea nitrogen/creatinine mass ratio 10 NRG Serum or plasma creatinine measurement w ith calculation of estimated glomerular filtration rate 47 NRG Serum or plasma glucose measurement (mass/volume) 181 mg/dL 70-105 Serum or plasma calcium measurement (mass/volume) 8.9 mg/dL 8.5-10.1 Complete blood count (CBC) with automate d white blood cell (WBC) differential - 04/07/16 21:11 Blood leukocytes automated count (number/volume) 10.5 10*3/uL 4.3-11.0 Blood erythrocytes automated count (number/volume) 4.68 10*6/uL 4.35-5.85 Venous blood hemoglobin measurement (mass/volume) 14.1 g/dL 13.3-17.7 Blood hematocrit (volume fraction) 40 % 40-54 Automated erythrocyte mean corpuscular volume 86 [ foz_us] 80-99 Automated erythrocyte mean corpuscular h emoglobin (mass per erythrocyte) 30 pg 25-34 Automated erythrocyte mean corpuscular h emoglobin concentration measurement (mass/volume) 35 g/dL 32-36 Automated erythrocyte distribution width ratio 13. 6 % 10.0- 14.5 Automated blood platelet count (count/volume) 188 10*3/uL 130-400 Automated blood platelet mean volume measurement 10.4 [foz_us] 7.4-10.4 Automated blood neutrophils/100 leukocytes 69 % 42-75 Automated blood lymphocytes/100 leukocytes 20 % 12-44 Blood monocytes/100 leukocytes 8 % 0-12 Automated blood eosinophils/100 leukocytes 4 % 0-10 Automated blood basophils/100 leukocytes 0 % 0-10 Blood neutrophils automated count (number/volume) 7.2 10*3 1.8-7.8 Blood lymphocytes automated count (number/volume) 2.1 10*3 1.0-4.0 Blood monocytes automated count (number/volume) 0. 8 10*3 0.0-1.0 Automated eosinophil count 0.4 10*3/uL 0 .0-0.3 Automated blood basophil count (count/volume) 0.0 10*3/uL 0.0-0.1 Comprehensive metabolic panel - 04/07/16 21:11 Serum or plasma sodium measurement (moles/volume) 135 mmol/L 135-145 Serum or plasma potassium measurement (moles/volume) 3.9 mmol/L 3.6-5.0 Serum or plasma chloride measurement (moles/volume) 100 mmol/L 98-107 Carbon dioxide 21 mmol/L 21-32 Serum or plasma anion gap determination (moles/volume) 14 mmol/L 5-14 Serum or plasma urea nitrogen measurement (mass/volume ) 19 mg/dL 7-18 Serum or plasma creatinine measurement (mass/volume) 1.71 mg/dL 0.60-1.30 Serum or plasma urea nitrogen/creatinine mass ratio 11 NRG Serum or plasma creatinine measurement w ith calculation of estimated glomerular filtration rate 40 NRG Serum or plasma glucose measurement (mass/volume) 159 mg/dL 70-105 Serum or plasma calcium measurement (mass/volume) 9.2 mg/dL 8.5-10.1 Serum or plasma total bilirubin measurement (mass/volu me) 0.5 mg/dL 0.1-1.0 Serum or plasma alkaline phosphatase gerda surement (enzymatic activity/volume) 83 U/L 40-136 Serum or plasma aspartate aminotransfera se measurement (enzymatic activity/volume) 17 U/L 5-34 Serum or plasma alanine aminotransferase measurement (enzymatic activity/volume) 12 U/L 0-55 Serum or plasma protein measurement (mass/volume) 7.0 g/dL 6.4-8.2 Serum or plasma albumin measurement (mass/volume) 3.9 g/dL 3.2-4.5 Serum or plasma troponin i.cardiac measu rement (mass/volume) - 04/07/16 21:11 Serum or plasma troponin i.cardiac measurement (mass/v olume) < ng/mL <0.30 Complete blood count (CBC) with automate d white blood cell (WBC) differential - 04/08/16 16:27 Blood leukocytes automated count (number/volume) 9.2 10*3/uL 4.3-11.0 Blood erythrocytes automated count (number/volume) 4.54 10*6/uL 4.35-5.85 Venous blood hemoglobin measurement (mass/volume) 13.8 g/dL 13.3-17.7 Blood hematocrit (volume fraction) 39 % 40-54 Automated erythrocyte mean corpuscular volume 87 [ foz_us] 80-99 Automated erythrocyte mean corpuscular h emoglobin (mass per erythrocyte) 30 pg 25-34 Automated erythrocyte mean corpuscular h emoglobin concentration measurement (mass/volume) 35 g/dL 32-36 Automated erythrocyte distribution width ratio 13. 8 % 10.0- 14.5 Automated blood platelet count (count/volume) 181 10*3/uL 130-400 Automated blood platelet mean volume measurement 11.0 [foz_us] 7.4-10.4 Automated blood neutrophils/100 leukocytes 74 % 42-75 Automated blood lymphocytes/100 leukocytes 16 % 12-44 Blood monocytes/100 leukocytes 7 % 0-12 Automated blood eosinophils/100 leukocytes 2 % 0-10 Automated blood basophils/100 leukocytes 0 % 0-10 Blood neutrophils automated count (number/volume) 6.9 10*3 1.8-7.8 Blood lymphocytes automated count (number/volume) 1.5 10*3 1.0-4.0 Blood monocytes automated count (number/volume) 0. 7 10*3 0.0-1.0 Automated eosinophil count 0.2 10*3/uL 0 .0-0.3 Automated blood basophil count (count/volume) 0.0 10*3/uL 0.0-0.1 Comprehensive metabolic panel - 04/08/16 16:27 Serum or plasma sodium measurement (moles/volume) 137 mmol/L 135-145 Serum or plasma potassium measurement (moles/volume) 3.8 mmol/L 3.6-5.0 Serum or plasma chloride measurement (moles/volume) 103 mmol/L 98-107 Carbon dioxide 22 mmol/L 21-32 Serum or plasma anion gap determination (moles/volume) 12 mmol/L 5-14 Serum or plasma urea nitrogen measurement (mass/volume ) 24 mg/dL 7-18 Serum or plasma creatinine measurement (mass/volume) 1.61 mg/dL 0.60-1.30 Serum or plasma urea nitrogen/creatinine mass ratio 15 NRG Serum or plasma creatinine measurement w ith calculation of estimated glomerular filtration rate 43 NRG Serum or plasma glucose measurement (mass/volume) 155 mg/dL 70-105 Serum or plasma calcium measurement (mass/volume) 8.6 mg/dL 8.5-10.1 Serum or plasma total bilirubin measurement (mass/volu me) 0.5 mg/dL 0.1-1.0 Serum or plasma alkaline phosphatase gerda surement (enzymatic activity/volume) 74 U/L 40-136 Serum or plasma aspartate aminotransfera se measurement (enzymatic activity/volume) 16 U/L 5-34 Serum or plasma alanine aminotransferase measurement (enzymatic activity/volume) 11 U/L 0-55 Serum or plasma protein measurement (mass/volume) 6.4 g/dL 6.4-8.2 Serum or plasma albumin measurement (mass/volume) 3.6 g/dL 3.2-4.5 Complete urinalysis with reflex to cultu re - 04/08/16 16:45 Urine color determination YELLOW NRG Urine clarity determination SLIGHTLY CLOUDY NRG Urine pH measurement by test strip 6 5-9 Specific gravity of urine by test strip 1.010 1.016-1.022 Urine protein assay by test strip, semi-quantitative NEGATIVE NEGATIVE Urine glucose detection by automated test strip NE GATIVE NEGATIVE Erythrocytes detection in urine sediment by light micr oscopy NEGATIVE NEGATIVE Urine ketones detection by automated test strip NE GATIVE NEGATIVE Urine nitrite detection by test strip NEGATIVE NEGATIVE Urine total bilirubin detection by test strip NEGA TIVE NEGATIVE Urine urobilinogen measurement by automated test strip (mass/volume) NORMAL NORMAL Urine leukocyte esterase detection by dipstick NEG ATIVE NEGATIVE Automated urine sediment erythrocyte cou nt by microscopy (number/high power field) NONE NRG Automated urine sediment leukocyte count by microscopy (number/high power field) NONE NRG Bacteria detection in urine sediment by light microsco py TRACE NRG Crystals detection in urine sediment by light microsco py NONE NRG Casts detection in urine sediment by light microscopy NONE NRG Mucus detection in urine sediment by light microscopy NEGATIVE NRG Complete urinalysis with reflex to culture NO NRG Complete blood count (CBC) with automate d white blood cell (WBC) differential - 04/28/16 04:23 Blood leukocytes automated count (number/volume) 13.7 10*3/uL 4.3-11.0 Blood erythrocytes automated count (number/volume) 4.42 10*6/uL 4.35-5.85 Venous blood hemoglobin measurement (mass/volume) 13.4 g/dL 13.3-17.7 Blood hematocrit (volume fraction) 39 % 40-54 Automated erythrocyte mean corpuscular volume 87 [ foz_us] 80-99 Automated erythrocyte mean corpuscular h emoglobin (mass per erythrocyte) 30 pg 25-34 Automated erythrocyte mean corpuscular h emoglobin concentration measurement (mass/volume) 35 g/dL 32-36 Automated erythrocyte distribution width ratio 13. 6 % 10.0- 14.5 Automated blood platelet count (count/volume) 184 10*3/uL 130-400 Automated blood platelet mean volume measurement 10.7 [foz_us] 7.4-10.4 Automated blood neutrophils/100 leukocytes 71 % 42-75 Automated blood lymphocytes/100 leukocytes 15 % 12-44 Blood monocytes/100 leukocytes 10 % 0-12 Automated blood eosinophils/100 leukocytes 3 % 0-10 Automated blood basophils/100 leukocytes 0 % 0-10 Blood neutrophils automated count (number/volume) 9.8 10*3 1.8-7.8 Blood lymphocytes automated count (number/volume) 2.1 10*3 1.0-4.0 Blood monocytes automated count (number/volume) 1. 4 10*3 0.0-1.0 Automated eosinophil count 0.4 10*3/uL 0 .0-0.3 Automated blood basophil count (count/volume) 0.0 10*3/uL 0.0-0.1 Comprehensive metabolic panel - 04/28/16 04:23 Serum or plasma sodium measurement (moles/volume) 130 mmol/L 135-145 Serum or plasma potassium measurement (moles/volume) 4.3 mmol/L 3.6-5.0 Serum or plasma chloride measurement (moles/volume) 97 mmol/L 98-107 Carbon dioxide 22 mmol/L 21-32 Serum or plasma anion gap determination (moles/volume) 11 mmol/L 5-14 Serum or plasma urea nitrogen measurement (mass/volume ) 25 mg/dL 7-18 Serum or plasma creatinine measurement (mass/volume) 1.69 mg/dL 0.60-1.30 Serum or plasma urea nitrogen/creatinine mass ratio 15 NRG Serum or plasma creatinine measurement w ith calculation of estimated glomerular filtration rate 40 NRG Serum or plasma glucose measurement (mass/volume) 175 mg/dL 70-105 Serum or plasma calcium measurement (mass/volume) 8.6 mg/dL 8.5-10.1 Serum or plasma total bilirubin measurement (mass/volu me) 0.9 mg/dL 0.1-1.0 Serum or plasma alkaline phosphatase gerda surement (enzymatic activity/volume) 87 U/L 40-136 Serum or plasma aspartate aminotransfera se measurement (enzymatic activity/volume) 20 U/L 5-34 Serum or plasma alanine aminotransferase measurement (enzymatic activity/volume) 23 U/L 0-55 Serum or plasma protein measurement (mass/volume) 6.3 g/dL 6.4-8.2 Serum or plasma albumin measurement (mass/volume) 3.6 g/dL 3.2-4.5 Magnesium - 04/28/16 04:23 Magnesium 2.0 mg/dL 1.8-2.4 Serum or plasma C reactive protein measu rement (mass/volume) - 04/28/16 04:23 Serum or plasma C reactive protein measurement (mass/v olume) 1.28 mg/dL 0.00-0.50 Fibrin D-dimer FEU measurement in platel et poor plasma (mass/volume) - 07/24/16 14:15 Fibrin D-dimer FEU measurement in platelet poor plasma (mass/volume) 0.52 ug/mL 0.00-0.49 Whole blood basic metabolic panel - 07/06 14:15 Serum or plasma sodium measurement (moles/volume) 131 mmol/L 135-145 Serum or plasma potassium measurement (moles/volume) 4.6 mmol/L 3.6-5.0 Serum or plasma chloride measurement (moles/volume) 100 mmol/L 98-107 Carbon dioxide 20 mmol/L 21-32 Serum or plasma anion gap determination (moles/volume) 11 mmol/L 5-14 Serum or plasma urea nitrogen measurement (mass/volume ) 20 mg/dL 7-18 Serum or plasma creatinine measurement (mass/volume) 1.94 mg/dL 0.60-1.30 Serum or plasma urea nitrogen/creatinine mass ratio 10 NRG Serum or plasma creatinine measurement w ith calculation of estimated glomerular filtration rate 34 NRG Serum or plasma glucose measurement (mass/volume) 156 mg/dL 70-105 Serum or plasma calcium measurement (mass/volume) 7.9 mg/dL 8.5-10.1 Serum or plasma lithium measurement (mol es/volume) - 07/24/16 14:15 BNP level 41.7 pg/mL <100.0 Complete urinalysis with reflex to cultu re - 07/24/16 16:09 Urine color determination YELLOW NRG Urine clarity determination SLIGHTLY CLOUDY NRG Urine pH measurement by test strip 6 5-9 Specific gravity of urine by test strip 1.015 1.016-1.022 Urine protein assay by test strip, semi-quantitative 2+ NEGATIVE Urine glucose detection by automated test strip NE GATIVE NEGATIVE Erythrocytes detection in urine sediment by light micr oscopy 1+ NEGATIVE Urine ketones detection by automated test strip NE GATIVE NEGATIVE Urine nitrite detection by test strip NEGATIVE NEGATIVE Urine total bilirubin detection by test strip NEGA TIVE NEGATIVE Urine urobilinogen measurement by automated test strip (mass/volume) 1 mg/dL NORMAL Urine leukocyte esterase detection by dipstick 3+ NEGATIVE Automated urine sediment erythrocyte cou nt by microscopy (number/high power field) [HPF] NRG Automated urine sediment leukocyte count by microscopy (number/high power field) TNTC NRG Bacteria detection in urine sediment by light microsco py LARGE NRG Crystals detection in urine sediment by light microsco py NONE NRG Casts detection in urine sediment by light microscopy NONE NRG Mucus detection in urine sediment by light microscopy NEGATIVE NRG Complete urinalysis with reflex to culture YES NRG Bacterial urine culture - 07/24/16 16:09 Bacterial urine culture FOOTNOTE NRG Complete blood count (CBC) with automate d white blood cell (WBC) differential - 07/25/16 06:00 Blood leukocytes automated count (number/volume) 8.5 10*3/uL 4.3-11.0 Blood erythrocytes automated count (number/volume) 3.72 10*6/uL 4.35-5.85 Venous blood hemoglobin measurement (mass/volume) 11.4 g/dL 13.3-17.7 Blood hematocrit (volume fraction) 34 % 40-54 Automated erythrocyte mean corpuscular volume 91 [ foz_us] 80-99 Automated erythrocyte mean corpuscular h emoglobin (mass per erythrocyte) 31 pg 25-34 Automated erythrocyte mean corpuscular h emoglobin concentration measurement (mass/volume) 34 g/dL 32-36 Automated erythrocyte distribution width ratio 13. 6 % 10.0- 14.5 Automated blood platelet count (count/volume) 163 10*3/uL 130-400 Automated blood platelet mean volume measurement 9.8 [foz_us] 7.4-10.4 Automated blood neutrophils/100 leukocytes 69 % 42-75 Automated blood lymphocytes/100 leukocytes 14 % 12-44 Blood monocytes/100 leukocytes 13 % 0-12 Automated blood eosinophils/100 leukocytes 4 % 0-10 Automated blood basophils/100 leukocytes 0 % 0-10 Blood neutrophils automated count (number/volume) 5.9 10*3 1.8-7.8 Blood lymphocytes automated count (number/volume) 1.2 10*3 1.0-4.0 Blood monocytes automated count (number/volume) 1. 1 10*3 0.0-1.0 Automated eosinophil count 0.4 10*3/uL 0 .0-0.3 Automated blood basophil count (count/volume) 0.0 10*3/uL 0.0-0.1 Comprehensive metabolic panel - 07/25/16 06:00 Serum or plasma sodium measurement (moles/volume) 134 mmol/L 135-145 Serum or plasma potassium measurement (moles/volume) 4.3 mmol/L 3.6-5.0 Serum or plasma chloride measurement (moles/volume) 102 mmol/L 98-107 Carbon dioxide 22 mmol/L 21-32 Serum or plasma anion gap determination (moles/volume) 10 mmol/L 5-14 Serum or plasma urea nitrogen measurement (mass/volume ) 18 mg/dL 7-18 Serum or plasma creatinine measurement (mass/volume) 1.68 mg/dL 0.60-1.30 Serum or plasma urea nitrogen/creatinine mass ratio 11 NRG Serum or plasma creatinine measurement w ith calculation of estimated glomerular filtration rate 41 NRG Serum or plasma glucose measurement (mass/volume) 167 mg/dL 70-105 Serum or plasma calcium measurement (mass/volume) 8.2 mg/dL 8.5-10.1 Serum or plasma total bilirubin measurement (mass/volu me) 0.5 mg/dL 0.1-1.0 Serum or plasma alkaline phosphatase gerda surement (enzymatic activity/volume) 74 U/L 40-136 Serum or plasma aspartate aminotransfera se measurement (enzymatic activity/volume) 12 U/L 5-34 Serum or plasma alanine aminotransferase measurement (enzymatic activity/volume) 13 U/L 0-55 Serum or plasma protein measurement (mass/volume) 6.5 g/dL 6.4-8.2 Serum or plasma albumin measurement (mass/volume) 3.3 g/dL 3.2-4.5 Capillary blood glucose measurement by g lucometer (mass/volume) - 07/25/16 15:46 Capillary blood glucose measurement by glucometer (mas s/volume) 179 mg/dL 70-110 Capillary blood glucose measurement by g lucometer (mass/volume) - 07/26/16 06:20 Capillary blood glucose measurement by glucometer (mas s/volume) 161 mg/dL 70-110 Complete blood count (CBC) with automate d white blood cell (WBC) differential - 07/26/16 11:04 Blood leukocytes automated count (number/volume) 7.9 10*3/uL 4.3-11.0 Blood erythrocytes automated count (number/volume) 4.15 10*6/uL 4.35-5.85 Venous blood hemoglobin measurement (mass/volume) 12.4 g/dL 13.3-17.7 Blood hematocrit (volume fraction) 37 % 40-54 Automated erythrocyte mean corpuscular volume 90 [ foz_us] 80-99 Automated erythrocyte mean corpuscular h emoglobin (mass per erythrocyte) 30 pg 25-34 Automated erythrocyte mean corpuscular h emoglobin concentration measurement (mass/volume) 33 g/dL 32-36 Automated erythrocyte distribution width ratio 13. 4 % 10.0- 14.5 Automated blood platelet count (count/volume) 172 10*3/uL 130-400 Automated blood platelet mean volume measurement 10.2 [foz_us] 7.4-10.4 Automated blood neutrophils/100 leukocytes 61 % 42-75 Automated blood lymphocytes/100 leukocytes 22 % 12-44 Blood monocytes/100 leukocytes 13 % 0-12 Automated blood eosinophils/100 leukocytes 4 % 0-10 Automated blood basophils/100 leukocytes 0 % 0-10 Blood neutrophils automated count (number/volume) 4.8 10*3 1.8-7.8 Blood lymphocytes automated count (number/volume) 1.8 10*3 1.0-4.0 Blood monocytes automated count (number/volume) 1. 0 10*3 0.0-1.0 Automated eosinophil count 0.3 10*3/uL 0 .0-0.3 Automated blood basophil count (count/volume) 0.0 10*3/uL 0.0-0.1 Comprehensive metabolic panel - 07/26/16 11:04 Serum or plasma sodium measurement (moles/volume) 132 mmol/L 135-145 Serum or plasma potassium measurement (moles/volume) 4.3 mmol/L 3.6-5.0 Serum or plasma chloride measurement (moles/volume) 95 mmol/L 98-107 Carbon dioxide 27 mmol/L 21-32 Serum or plasma anion gap determination (moles/volume) 10 mmol/L 5-14 Serum or plasma urea nitrogen measurement (mass/volume ) 19 mg/dL 7-18 Serum or plasma creatinine measurement (mass/volume) 1.67 mg/dL 0.60-1.30 Serum or plasma urea nitrogen/creatinine mass ratio 11 NRG Serum or plasma creatinine measurement w ith calculation of estimated glomerular filtration rate 41 NRG Serum or plasma glucose measurement (mass/volume) 196 mg/dL 70-105 Serum or plasma calcium measurement (mass/volume) 9.1 mg/dL 8.5-10.1 Serum or plasma total bilirubin measurement (mass/volu me) 0.6 mg/dL 0.1-1.0 Serum or plasma alkaline phosphatase gerda surement (enzymatic activity/volume) 72 U/L 40-136 Serum or plasma aspartate aminotransfera se measurement (enzymatic activity/volume) 11 U/L 5-34 Serum or plasma alanine aminotransferase measurement (enzymatic activity/volume) 9 U/L 0-55 Serum or plasma protein measurement (mass/volume) 6.8 g/dL 6.4-8.2 Serum or plasma albumin measurement (mass/volume) 3.5 g/dL 3.2-4.5 Complete urinalysis with reflex to cultu re - 08/25/16 19:52 Urine color determination RED NRG Urine clarity determination BLOODY NR G Urine pH measurement by test strip 6 5-9 Specific gravity of urine by test strip 1.015 1.016-1.022 Urine protein assay by test strip, semi-quantitative 4+ NEGATIVE Urine glucose detection by automated test strip NE GATIVE NEGATIVE Erythrocytes detection in urine sediment by light micr oscopy 5+ NEGATIVE Urine ketones detection by automated test strip NE GATIVE NEGATIVE Urine nitrite detection by test strip POSITIVE NEGATIVE Urine total bilirubin detection by test strip NEGA TIVE NEGATIVE Urine urobilinogen measurement by automated test strip (mass/volume) 1 mg/dL NORMAL Urine leukocyte esterase detection by dipstick 3+ NEGATIVE Automated urine sediment erythrocyte cou nt by microscopy (number/high power field) TNTC NRG Automated urine sediment leukocyte count by microscopy (number/high power field) TNTC NRG Bacteria detection in urine sediment by light microsco py MODERATE NRG Crystals detection in urine sediment by light microsco py NONE NRG Casts detection in urine sediment by light microscopy NONE NRG Mucus detection in urine sediment by light microscopy NEGATIVE NRG Complete urinalysis with reflex to culture YES NRG Bacterial urine culture - 08/25/16 19:52 Bacterial urine culture [id number] NRG COLONY COUNT 10,000/ML - 100,000/ML NRG Complete blood count (CBC) with automate d white blood cell (WBC) differential - 10/24/16 15:00 Blood leukocytes automated count (number/volume) 15.5 10*3/uL 4.3-11.0 Blood erythrocytes automated count (number/volume) 3.99 10*6/uL 4.35-5.85 Venous blood hemoglobin measurement (mass/volume) 11.6 g/dL 13.3-17.7 Blood hematocrit (volume fraction) 35 % 40-54 Automated erythrocyte mean corpuscular volume 88 [ foz_us] 80-99 Automated erythrocyte mean corpuscular h emoglobin (mass per erythrocyte) 29 pg 25-34 Automated erythrocyte mean corpuscular h emoglobin concentration measurement (mass/volume) 33 g/dL 32-36 Automated erythrocyte distribution width ratio 13. 5 % 10.0- 14.5 Automated blood platelet count (count/volume) 239 10*3/uL 130-400 Automated blood platelet mean volume measurement 10.1 [foz_us] 7.4-10.4 Automated blood neutrophils/100 leukocytes 72 % 42-75 Automated blood lymphocytes/100 leukocytes 21 % 12-44 Blood monocytes/100 leukocytes 6 % 0-12 Automated blood eosinophils/100 leukocytes 1 % 0-10 Automated blood basophils/100 leukocytes 0 % 0-10 Blood neutrophils automated count (number/volume) 11.1 10*3 1.8-7.8 Blood lymphocytes automated count (number/volume) 3.2 10*3 1.0-4.0 Blood monocytes automated count (number/volume) 0. 9 10*3 0.0-1.0 Automated eosinophil count 0.2 10*3/uL 0 .0-0.3 Automated blood basophil count (count/volume) 0.0 10*3/uL 0.0-0.1 Whole blood basic metabolic panel - 10/06 15:00 Serum or plasma sodium measurement (moles/volume) 131 mmol/L 135-145 Serum or plasma potassium measurement (moles/volume) 4.2 mmol/L 3.6-5.0 Serum or plasma chloride measurement (moles/volume) 95 mmol/L 98-107 Carbon dioxide 24 mmol/L 21-32 Serum or plasma anion gap determination (moles/volume) 12 mmol/L 5-14 Serum or plasma urea nitrogen measurement (mass/volume ) 15 mg/dL 7-18 Serum or plasma creatinine measurement (mass/volume) 1.62 mg/dL 0.60-1.30 Serum or plasma urea nitrogen/creatinine mass ratio 9 0-20 Serum or plasma creatinine measurement w ith calculation of estimated glomerular filtration rate 42 NRG Serum or plasma glucose measurement (mass/volume) 197 mg/dL 70-105 Serum or plasma calcium measurement (mass/volume) 9.5 mg/dL 8.5-10.1 Blood type T Indirect antibody screen pa marlo - 10/24/16 15:00 ABO+Rh group OP NRG Blood group antibody screen NEGATIVE NR G Blood manual differential performed dete ction - 10/24/16 15:00 Blood monocytes/100 leukocytes 1 % NRG Manual blood segmented neutrophils/100 leukocytes 75 % NRG Blood band neutrophils/100 leukocytes 0 % NRG Manual blood lymphocytes/100 leukocytes 22 % NRG Manual eosinophils/100 leukocytes in nose 1 % NRG Manual blood basophils/100 leukocytes 1 % NRG Blood erythrocyte morphology finding identification NORMAL NRG Methicillin resistant Staphylococcus aur eus (MRSA) screening culture - 10/24/16 15:00 Methicillin resistant Staphylococcus aureus (MRSA) scr eening culture NEG NRG Katiana bleeding time - 10/24/16 15:33 Katiana bleeding time > min 2.5-9.5 Capillary blood glucose measurement by g lucometer (mass/volume) - 10/31/16 06:25 Capillary blood glucose measurement by glucometer (mas s/volume) 148 mg/dL 70-110 Katiana bleeding time - 10/31/16 06:44 Katiana bleeding time 4.0 min 2.5-9.5 Blood type T Indirect antibody screen pa marlo - 10/31/16 06:50 ABO+Rh group OP NRG Transfusion band number [id number] NRG Blood group antibody screen NEGATIVE NR G Capillary blood glucose measurement by g lucometer (mass/volume) - 10/31/16 09:11 Capillary blood glucose measurement by glucometer (mas s/volume) 149 mg/dL 70-110 Capillary blood glucose measurement by g lucometer (mass/volume) - 10/31/16 20:22 Capillary blood glucose measurement by glucometer (mas s/volume) 202 mg/dL 70-110 Capillary blood glucose measurement by g lucometer (mass/volume) - 11/01/16 05:33 Capillary blood glucose measurement by glucometer (mas s/volume) 164 mg/dL 70-110 Capillary blood glucose measurement by g lucometer (mass/volume) - 11/01/16 10:36 Capillary blood glucose measurement by glucometer (mas s/volume) 224 mg/dL 70-110 Capillary blood glucose measurement by g lucometer (mass/volume) - 11/01/16 16:00 Capillary blood glucose measurement by glucometer (mas s/volume) 153 mg/dL 70-110 Capillary blood glucose measurement by g lucometer (mass/volume) - 11/01/16 20:37 Capillary blood glucose measurement by glucometer (mas s/volume) 213 mg/dL 70-110 Capillary blood glucose measurement by g lucometer (mass/volume) - 11/02/16 05:49 Capillary blood glucose measurement by glucometer (mas s/volume) 161 mg/dL 70-110 Capillary blood glucose measurement by g lucometer (mass/volume) - 11/02/16 11:09 Capillary blood glucose measurement by glucometer (mas s/volume) 210 mg/dL 70-110 Complete urinalysis with reflex to cultu re - 11/05/16 19:14 Urine color determination YELLOW NRG Urine clarity determination CLEAR NR G Urine pH measurement by test strip 7 5-9 Specific gravity of urine by test strip 1.010 1.016-1.022 Urine protein assay by test strip, semi-quantitative 3+ NEGATIVE Urine glucose detection by automated test strip NE GATIVE NEGATIVE Erythrocytes detection in urine sediment by light micr oscopy 5+ NEGATIVE Urine ketones detection by automated test strip NE GATIVE NEGATIVE Urine nitrite detection by test strip NEGATIVE NEGATIVE Urine total bilirubin detection by test strip NEGA TIVE NEGATIVE Urine urobilinogen measurement by automated test strip (mass/volume) NORMAL NORMAL Urine leukocyte esterase detection by dipstick 3+ NEGATIVE Automated urine sediment erythrocyte cou nt by microscopy (number/high power field) > [HPF] NRG Automated urine sediment leukocyte count by microscopy (number/high power field) [HPF] NRG Bacteria detection in urine sediment by light microsco py TRACE NRG Squamous epithelial cells detection in u rine sediment by light microscopy 2-5 NRG Crystals detection in urine sediment by light microsco py NONE NRG Casts detection in urine sediment by light microscopy NONE NRG Mucus detection in urine sediment by light microscopy NEGATIVE NRG Complete urinalysis with reflex to culture YES NRG Bacterial urine culture - 11/05/16 19:14 Bacterial urine culture [id number] NRG COLONY COUNT <10,000 NRG FTX;REPORTABLE 2 COLONY TYPES OBSERVED NRG Automated blood complete blood count (he mogram) panel - 06/06/17 07:07 Blood leukocytes automated count (number/volume) 8.2 10*3/uL 4.3-11.0 Blood erythrocytes automated count (number/volume) 4.87 10*6/uL 4.35-5.85 Venous blood hemoglobin measurement (mass/volume) 14.5 g/dL 13.3-17.7 Blood hematocrit (volume fraction) 42 % 40-54 Automated erythrocyte mean corpuscular volume 87 [ foz_us] 80-99 Automated erythrocyte mean corpuscular h emoglobin (mass per erythrocyte) 30 pg 25-34 Automated erythrocyte mean corpuscular h emoglobin concentration measurement (mass/volume) 34 g/dL 32-36 Automated erythrocyte distribution width ratio 12. 8 % 10.0- 14.5 Automated blood platelet count (count/volume) 196 10*3/uL 130-400 Automated blood platelet mean volume measurement 10.8 [foz_us] 7.4-10.4 PT panel in platelet poor plasma by coag ulation assay - 06/06/17 07:07 Prothrombin time (PT) in platelet poor plasma by coagu lation assay 13.2 s 12.2-14.7 INR in platelet poor plasma or blood by coagulation as say 1.0 0.8-1.4 Activated partial thromboplastin time (a PTT) in platelet poor plasma bycoagulation assay - 06/06/17 07:07 Activated partial thromboplastin time (a PTT) in platelet poor plasma bycoagulation assay 28 s 24-35 Comprehensive metabolic panel - 06/06/17 07:07 Serum or plasma sodium measurement (moles/volume) 136 mmol/L 135-145 Serum or plasma potassium measurement (moles/volume) 4.1 mmol/L 3.6-5.0 Serum or plasma chloride measurement (moles/volume) 98 mmol/L 98-107 Carbon dioxide 25 mmol/L 21-32 Serum or plasma anion gap determination (moles/volume) 13 mmol/L 5-14 Serum or plasma urea nitrogen measurement (mass/volume ) 15 mg/dL 7-18 Serum or plasma creatinine measurement (mass/volume) 1.57 mg/dL 0.60-1.30 Serum or plasma urea nitrogen/creatinine mass ratio 10 NRG Serum or plasma creatinine measurement w ith calculation of estimated glomerular filtration rate 44 NRG Serum or plasma glucose measurement (mass/volume) 223 mg/dL 70-105 Serum or plasma calcium measurement (mass/volume) 9.3 mg/dL 8.5-10.1 Serum or plasma total bilirubin measurement (mass/volu me) 0.7 mg/dL 0.1-1.0 Serum or plasma alkaline phosphatase gerda surement (enzymatic activity/volume) 77 U/L 40-136 Serum or plasma aspartate aminotransfera se measurement (enzymatic activity/volume) 22 U/L 5-34 Serum or plasma alanine aminotransferase measurement (enzymatic activity/volume) 25 U/L 0-55 Serum or plasma protein measurement (mass/volume) 7.7 g/dL 6.4-8.2 Serum or plasma albumin measurement (mass/volume) 3.9 g/dL 3.2-4.5 Lipid 1996 panel - 06/06/17 07:07 Serum or plasma triglyceride measurement (mass/volume) 151 mg/dL <150 Serum or plasma cholesterol measurement (mass/volume) 139 mg/dL < 200 Serum or plasma cholesterol in HDL measurement (mass/v olume) 42 mg/dL 40-60 Cholesterol in LDL [mass/volume] in serum or plasma by direct assay 77 mg/dL 1-129 Serum or plasma cholesterol in VLDL measurement (mass/ volume) 30 mg/dL 5-40 Methicillin resistant Staphylococcus aur eus (MRSA) screening culture - 06/06/17 07:07 Methicillin resistant Staphylococcus aureus (MRSA) scr eening culture NEG NRG Complete blood count (CBC) with automate d white blood cell (WBC) differential - 09/29/18 17:50 Blood leukocytes automated count (number/volume) 9.0 10*3/uL 4.3-11.0 Blood erythrocytes automated count (number/volume) 5.14 10*6/uL 4.35-5.85 Venous blood hemoglobin measurement (mass/volume) 14.7 g/dL 13.3-17.7 Blood hematocrit (volume fraction) 45 % 40-54 Automated erythrocyte mean corpuscular volume 88 [ foz_us] 80-99 Automated erythrocyte mean corpuscular h emoglobin (mass per erythrocyte) 29 pg 25-34 Automated erythrocyte mean corpuscular h emoglobin concentration measurement (mass/volume) 33 g/dL 32-36 Automated erythrocyte distribution width ratio 13. 9 % 10.0- 14.5 Automated blood platelet count (count/volume) 180 10*3/uL 130-400 Automated blood platelet mean volume measurement 10.8 [foz_us] 7.4-10.4 Automated blood neutrophils/100 leukocytes 61 % 42-75 Automated blood lymphocytes/100 leukocytes 25 % 12-44 Blood monocytes/100 leukocytes 11 % 0-12 Automated blood eosinophils/100 leukocytes 3 % 0-10 Automated blood basophils/100 leukocytes 0 % 0-10 Blood neutrophils automated count (number/volume) 5.5 10*3 1.8-7.8 Blood lymphocytes automated count (number/volume) 2.2 10*3 1.0-4.0 Blood monocytes automated count (number/volume) 1. 0 10*3 0.0-1.0 Automated eosinophil count 0.3 10*3/uL 0 .0-0.3 Automated blood basophil count (count/volume) 0.0 10*3/uL 0.0-0.1 Comprehensive metabolic panel - 09/29/18 17:50 Serum or plasma sodium measurement (moles/volume) 134 mmol/L 135-145 Serum or plasma potassium measurement (moles/volume) 4.0 mmol/L 3.6-5.0 Serum or plasma chloride measurement (moles/volume) 100 mmol/L 98-107 Carbon dioxide 22 mmol/L 21-32 Serum or plasma anion gap determination (moles/volume) 12 mmol/L 5-14 Serum or plasma urea nitrogen measurement (mass/volume ) 23 mg/dL 7-18 Serum or plasma creatinine measurement (mass/volume) 1.95 mg/dL 0.60-1.30 Serum or plasma urea nitrogen/creatinine mass ratio 12 NRG Serum or plasma creatinine measurement w ith calculation of estimated glomerular filtration rate 34 NRG Serum or plasma glucose measurement (mass/volume) 214 mg/dL 70-105 Serum or plasma calcium measurement (mass/volume) 9.0 mg/dL 8.5-10.1 Serum or plasma total bilirubin measurement (mass/volu me) 0.4 mg/dL 0.1-1.0 Serum or plasma alkaline phosphatase gerda surement (enzymatic activity/volume) 78 U/L 40-136 Serum or plasma aspartate aminotransfera se measurement (enzymatic activity/volume) 26 U/L 5-34 Serum or plasma alanine aminotransferase measurement (enzymatic activity/volume) 23 U/L 0-55 Serum or plasma protein measurement (mass/volume) 7.2 g/dL 6.4-8.2 Serum or plasma albumin measurement (mass/volume) 3.8 g/dL 3.2-4.5 CALCIUM CORRECTED 9.2 mg/dL 8.5-10.1 Magnesium - 09/29/18 17:50 Magnesium 2.1 mg/dL 1.8-2.4 Serum or plasma troponin i.cardiac measu rement (mass/volume) - 09/29/18 17:50 Serum or plasma troponin i.cardiac measurement (mass/v olume) < ng/mL <0.028 Serum or plasma lithium measurement (mol es/volume) - 09/29/18 17:50 BNP level 33.5 pg/mL <100.0 Serum or plasma C reactive protein measu rement (mass/volume) - 09/29/18 17:50 Serum or plasma C reactive protein measurement (mass/v olume) 3.60 mg/dL 0.00-0.50 Arterial blood gas measurement - 9 17:56 Blood pCO2 46 mm[Hg] 35-45 Blood pO2 73 mm[Hg] 79-93 Arterial blood bicarbonate measurement (moles/volume) 25 mmol/L 23-27 Arterial blood base excess by calculation -0.4 mmo l/L -2.5-2.5 Arterial blood oxygen saturation measurement 94 % 94-100 * Inhaled oxygen flow rate 3 NRG Arterial blood pH measurement with patient temperature correction 7.35 7.37-7.43 Arterial blood carbon dioxide, total measurement (mole s/volume) 25.9 mmol/L 21.0-31.0 Body site LT RADIAL NRG Assessment of wrist artery patency prior to arterial p uncture YES-POS NRG Setting of ventilation mode NO NR G Measurement of body temperature 98.9 NRG Complete blood count (CBC) with automate d white blood cell (WBC) differential - 02/12/19 16:05 Blood leukocytes automated count (number/volume) 9.9 10*3/uL 4.3-11.0 Blood erythrocytes automated count (number/volume) 5.00 10*6/uL 4.35-5.85 Venous blood hemoglobin measurement (mass/volume) 14.7 g/dL 13.3-17.7 Blood hematocrit (volume fraction) 44 % 40-54 Automated erythrocyte mean corpuscular volume 88 [ foz_us] 80-99 Automated erythrocyte mean corpuscular h emoglobin (mass per erythrocyte) 29 pg 25-34 Automated erythrocyte mean corpuscular h emoglobin concentration measurement (mass/volume) 33 g/dL 32-36 Automated erythrocyte distribution width ratio 13. 8 % 10.0- 14.5 Automated blood platelet count (count/volume) 178 10*3/uL 130-400 Automated blood platelet mean volume measurement 10.8 [foz_us] 7.4-10.4 Automated blood neutrophils/100 leukocytes 83 % 42-75 Automated blood lymphocytes/100 leukocytes 12 % 12-44 Blood monocytes/100 leukocytes 5 % 0-12 Automated blood eosinophils/100 leukocytes 0 % 0-10 Automated blood basophils/100 leukocytes 0 % 0-10 Blood neutrophils automated count (number/volume) 8.3 10*3 1.8-7.8 Blood lymphocytes automated count (number/volume) 1.2 10*3 1.0-4.0 Blood monocytes automated count (number/volume) 0. 5 10*3 0.0-1.0 Automated eosinophil count 0.0 10*3/uL 0 .0-0.3 Automated blood basophil count (count/volume) 0.0 10*3/uL 0.0-0.1 PT panel in platelet poor plasma by coag ulation assay - 02/12/19 16:05 Prothrombin time (PT) in platelet poor plasma by coagu lation assay 14.2 s 12.2-14.7 INR in platelet poor plasma or blood by coagulation as say 1.1 0.8-1.4 Activated partial thromboplastin time (a PTT) in platelet poor plasma bycoagulation assay - 02/12/19 16:05 Activated partial thromboplastin time (a PTT) in platelet poor plasma bycoagulation assay 25 s 24-35 Comprehensive metabolic panel - 02/12/19 16:05 Serum or plasma sodium measurement (moles/volume) 134 mmol/L 135-145 Serum or plasma potassium measurement (moles/volume) 4.5 mmol/L 3.6-5.0 Serum or plasma chloride measurement (moles/volume) 96 mmol/L 98-107 Carbon dioxide 28 mmol/L 21-32 Serum or plasma anion gap determination (moles/volume) 10 mmol/L 5-14 Serum or plasma urea nitrogen measurement (mass/volume ) 20 mg/dL 7-18 Serum or plasma creatinine measurement (mass/volume) 1.62 mg/dL 0.60-1.30 Serum or plasma urea nitrogen/creatinine mass ratio 12 NRG Serum or plasma creatinine measurement w ith calculation of estimated glomerular filtration rate 42 NRG Serum or plasma glucose measurement (mass/volume) 213 mg/dL 70-105 Serum or plasma calcium measurement (mass/volume) 9.1 mg/dL 8.5-10.1 Serum or plasma total bilirubin measurement (mass/volu me) 0.5 mg/dL 0.1-1.0 Serum or plasma alkaline phosphatase gerda surement (enzymatic activity/volume) 90 U/L 40-136 Serum or plasma aspartate aminotransfera se measurement (enzymatic activity/volume) 16 U/L 5-34 Serum or plasma alanine aminotransferase measurement (enzymatic activity/volume) 24 U/L 0-55 Serum or plasma protein measurement (mass/volume) 7.5 g/dL 6.4-8.2 Serum or plasma albumin measurement (mass/volume) 3.9 g/dL 3.2-4.5 CALCIUM CORRECTED 9.2 mg/dL 8.5-10.1 Complete blood count (CBC) with automate d white blood cell (WBC) differential - 04/28/19 18:28 Blood leukocytes automated count (number/volume) 10.7 10*3/uL 4.3-11.0 Blood erythrocytes automated count (number/volume) 4.75 10*6/uL 4.35-5.85 Venous blood hemoglobin measurement (mass/volume) 14.1 g/dL 13.3-17.7 Blood hematocrit (volume fraction) 43 % 40-54 Automated erythrocyte mean corpuscular volume 91 [ foz_us] 80-99 Automated erythrocyte mean corpuscular h emoglobin (mass per erythrocyte) 30 pg 25-34 Automated erythrocyte mean corpuscular h emoglobin concentration measurement (mass/volume) 33 g/dL 32-36 Automated erythrocyte distribution width ratio 14. 0 % 10.0- 14.5 Automated blood platelet count (count/volume) 145 10*3/uL 130-400 Automated blood platelet mean volume measurement 10.9 [foz_us] 7.4-10.4 Automated blood neutrophils/100 leukocytes 67 % 42-75 Automated blood lymphocytes/100 leukocytes 20 % 12-44 Blood monocytes/100 leukocytes 8 % 0-12 Automated blood eosinophils/100 leukocytes 5 % 0-10 Automated blood basophils/100 leukocytes 0 % 0-10 Blood neutrophils automated count (number/volume) 7.1 10*3 1.8-7.8 Blood lymphocytes automated count (number/volume) 2.1 10*3 1.0-4.0 Blood monocytes automated count (number/volume) 0. 9 10*3 0.0-1.0 Automated eosinophil count 0.6 10*3/uL 0 .0-0.3 Automated blood basophil count (count/volume) 0.0 10*3/uL 0.0-0.1 PT panel in platelet poor plasma by coag ulation assay - 04/28/19 18:28 Prothrombin time (PT) in platelet poor plasma by coagu lation assay 14.2 s 12.2-14.7 INR in platelet poor plasma or blood by coagulation as say 1.1 0.8-1.4 Activated partial thromboplastin time (a PTT) in platelet poor plasma bycoagulation assay - 04/28/19 18:28 Activated partial thromboplastin time (a PTT) in platelet poor plasma bycoagulation assay 27 s 24-35 Influenza virus A and B antigen detectio n - 04/28/19 18:28 FLU RESULT NEGATIVE FOR INFLUENZA A AND B ANTIGENS BY IA NR Blood lactic acid measurement (moles/vol ume) - 04/28/19 18:28 Blood lactic acid measurement (moles/volume) 1.58 mmol/L 0.50-2.00 Comprehensive metabolic panel - 04/28/19 18:28 Serum or plasma sodium measurement (moles/volume) 135 mmol/L 135-145 Serum or plasma potassium measurement (moles/volume) 4.2 mmol/L 3.6-5.0 Serum or plasma chloride measurement (moles/volume) 99 mmol/L 98-107 Carbon dioxide 23 mmol/L 21-32 Serum or plasma anion gap determination (moles/volume) 13 mmol/L 5-14 Serum or plasma urea nitrogen measurement (mass/volume ) 29 mg/dL 7-18 Serum or plasma creatinine measurement (mass/volume) 2.08 mg/dL 0.60-1.30 Serum or plasma urea nitrogen/creatinine mass ratio 14 NRG Serum or plasma creatinine measurement w ith calculation of estimated glomerular filtration rate 32 NRG Serum or plasma glucose measurement (mass/volume) 179 mg/dL 70-105 Serum or plasma calcium measurement (mass/volume) 8.7 mg/dL 8.5-10.1 Serum or plasma total bilirubin measurement (mass/volu me) 0.4 mg/dL 0.1-1.0 Serum or plasma alkaline phosphatase gerda surement (enzymatic activity/volume) 70 U/L 40-136 Serum or plasma aspartate aminotransfera se measurement (enzymatic activity/volume) 14 U/L 5-34 Serum or plasma alanine aminotransferase measurement (enzymatic activity/volume) 18 U/L 0-55 Serum or plasma protein measurement (mass/volume) 6.9 g/dL 6.4-8.2 Serum or plasma albumin measurement (mass/volume) 3.7 g/dL 3.2-4.5 CALCIUM CORRECTED 8.9 mg/dL 8.5-10.1 Magnesium - 04/28/19 18:28 Magnesium 1.8 mg/dL 1.6-2.4 Serum or plasma lithium measurement (mol es/volume) - 04/28/19 18:28 BNP PT 25.7 pg/mL <100.0 Serum or plasma troponin i.cardiac measu rement (mass/volume) - 04/28/19 18:28 Serum or plasma troponin i.cardiac measurement (mass/v olume) < ng/mL <0.028 Bacterial blood culture - 04/28/19 18:28 Bacterial blood culture NG NRG Bacterial blood culture - 04/28/19 18:36 Bacterial blood culture NG NRG Complete urinalysis with reflex to cultu re - 04/28/19 18:46 Urine color determination YELLOW NRG Urine clarity determination CLEAR NR G Urine pH measurement by test strip 6.0 5-9 Specific gravity of urine by test strip >= 1.016-1.022 Urine protein assay by test strip, semi-quantitative 2+ NEGATIVE Urine glucose detection by automated test strip NE GATIVE NEGATIVE Erythrocytes detection in urine sediment by light micr oscopy 1+ NEGATIVE Urine ketones detection by automated test strip NE GATIVE NEGATIVE Urine nitrite detection by test strip NEGATIVE NEGATIVE Urine total bilirubin detection by test strip NEGA TIVE NEGATIVE Urine urobilinogen measurement by automated test strip (mass/volume) 0.2 mg/dL < = 1.0 Urine leukocyte esterase detection by dipstick TRA CE NEGATIVE Automated urine sediment erythrocyte cou nt by microscopy (number/high power field) [HPF] NRG Automated urine sediment leukocyte count by microscopy (number/high power field) [HPF] NRG Bacteria detection in urine sediment by light microsco py TRACE NRG Squamous epithelial cells detection in u rine sediment by light microscopy 0-2 NRG Crystals detection in urine sediment by light microsco py NONE NRG Casts detection in urine sediment by light microscopy NONE NRG Mucus detection in urine sediment by light microscopy NEGATIVE NRG Complete urinalysis with reflex to culture YES NRG Bacterial urine culture - 04/28/19 18:46 Bacterial urine culture [id number] NRG COLONY COUNT <10,000 NRG FTX;REPORTABLE NO SUSCEPTIBILITY PERFORMED NRG Arterial blood gas measurement - 9 20:00 Blood pCO2 55 mm[Hg] 35-45 Blood pO2 87 mm[Hg] 79-93 Arterial blood bicarbonate measurement (moles/volume) 28 mmol/L 23-27 Arterial blood base excess by calculation 2.1 mmol /L -2.5-2.5 Arterial blood oxygen saturation measurement 96 % 94-100 * Inhaled oxygen flow rate 10L NRG Arterial blood pH measurement with patient temperature correction 7.32 7.37-7.43 Arterial blood carbon dioxide, total measurement (mole s/volume) 29.4 mmol/L 21.0-31.0 Body site LEFT RADIAL NRG Assessment of wrist artery patency prior to arterial p uncture POSITIVE NRG Setting of ventilation mode NO NR G Measurement of body temperature 36.7 NRG Methicillin resistant Staphylococcus aur eus (MRSA) screening culture - 04/28/19 21:32 Methicillin resistant Staphylococcus aureus (MRSA) scr eening culture NEG NRG Complete blood count (CBC) with automate d white blood cell (WBC) differential - 04/29/19 03:12 Blood leukocytes automated count (number/volume) 7.9 10*3/uL 4.3-11.0 Blood erythrocytes automated count (number/volume) 4.90 10*6/uL 4.35-5.85 Venous blood hemoglobin measurement (mass/volume) 14.5 g/dL 13.3-17.7 Blood hematocrit (volume fraction) 44 % 40-54 Automated erythrocyte mean corpuscular volume 90 [ foz_us] 80-99 Automated erythrocyte mean corpuscular h emoglobin (mass per erythrocyte) 30 pg 25-34 Automated erythrocyte mean corpuscular h emoglobin concentration measurement (mass/volume) 33 g/dL 32-36 Automated erythrocyte distribution width ratio 13. 6 % 10.0- 14.5 Automated blood platelet count (count/volume) 140 10*3/uL 130-400 Automated blood platelet mean volume measurement 11.2 [foz_us] 7.4-10.4 Automated blood neutrophils/100 leukocytes 90 % 42-75 Automated blood lymphocytes/100 leukocytes 9 % 12-44 Blood monocytes/100 leukocytes 1 % 0-12 Automated blood eosinophils/100 leukocytes 0 % 0-10 Automated blood basophils/100 leukocytes 0 % 0-10 Blood neutrophils automated count (number/volume) 7.1 10*3 1.8-7.8 Blood lymphocytes automated count (number/volume) 0.7 10*3 1.0-4.0 Blood monocytes automated count (number/volume) 0. 1 10*3 0.0-1.0 Automated eosinophil count 0.0 10*3/uL 0 .0-0.3 Automated blood basophil count (count/volume) 0.0 10*3/uL 0.0-0.1 Comprehensive metabolic panel - 04/29/19 03:12 Serum or plasma sodium measurement (moles/volume) 135 mmol/L 135-145 Serum or plasma potassium measurement (moles/volume) 5.2 mmol/L 3.6-5.0 Serum or plasma chloride measurement (moles/volume) 99 mmol/L 98-107 Carbon dioxide 22 mmol/L 21-32 Serum or plasma anion gap determination (moles/volume) 14 mmol/L 5-14 Serum or plasma urea nitrogen measurement (mass/volume ) 25 mg/dL 7-18 Serum or plasma creatinine measurement (mass/volume) 1.86 mg/dL 0.60-1.30 Serum or plasma urea nitrogen/creatinine mass ratio 13 NRG Serum or plasma creatinine measurement w ith calculation of estimated glomerular filtration rate 36 NRG Serum or plasma glucose measurement (mass/volume) 415 mg/dL 70-105 Serum or plasma calcium measurement (mass/volume) 9.1 mg/dL 8.5-10.1 Serum or plasma total bilirubin measurement (mass/volu me) 0.5 mg/dL 0.1-1.0 Serum or plasma alkaline phosphatase gerda surement (enzymatic activity/volume) 80 U/L 40-136 Serum or plasma aspartate aminotransfera se measurement (enzymatic activity/volume) 12 U/L 5-34 Serum or plasma alanine aminotransferase measurement (enzymatic activity/volume) 15 U/L 0-55 Serum or plasma protein measurement (mass/volume) 7.1 g/dL 6.4-8.2 Serum or plasma albumin measurement (mass/volume) 3.9 g/dL 3.2-4.5 CALCIUM CORRECTED 9.2 mg/dL 8.5-10.1 Serum or plasma phosphate measurement (m ass/volume) - 04/29/19 03:12 Serum or plasma phosphate measurement (mass/volume) 3.7 mg/dL 2.3-4.7 Magnesium - 04/29/19 03:12 Magnesium 1.9 mg/dL 1.6-2.4 Manual absolute plasma cell count - 04/07 08/23 03:12 Manual blood segmented neutrophils/100 leukocytes 91 % NRG Manual blood lymphocytes/100 leukocytes 9 % NRG Capillary blood glucose measurement by g lucometer (mass/volume) - 04/29/19 05:35 Capillary blood glucose measurement by glucometer (mas s/volume) 331 mg/dL 70-110 Arterial blood gas measurement - 9 05:40 Blood pCO2 51 mm[Hg] 35-45 Blood pO2 76 mm[Hg] 79-93 Arterial blood bicarbonate measurement (moles/volume) 28 mmol/L 23-27 Arterial blood base excess by calculation 2.5 mmol /L -2.5-2.5 Arterial blood oxygen saturation measurement 95 % 94-100 * Inhaled oxygen flow rate 4 NRG Arterial blood pH measurement with patient temperature correction 7.35 7.37-7.43 Arterial blood carbon dioxide, total measurement (mole s/volume) 29.2 mmol/L 21.0-31.0 Body site RIGHT RADIAL NRG Assessment of wrist artery patency prior to arterial p uncture POSITIVE NRG Setting of ventilation mode NO NR G Measurement of body temperature 36.8 NRG Capillary blood glucose measurement by g lucometer (mass/volume) - 04/29/19 11:07 Capillary blood glucose measurement by glucometer (mas s/volume) 327 mg/dL 70-110 Capillary blood glucose measurement by g lucometer (mass/volume) - 04/29/19 16:04 Capillary blood glucose measurement by glucometer (mas s/volume) 330 mg/dL 70-110 Capillary blood glucose measurement by g lucometer (mass/volume) - 04/29/19 20:09 Capillary blood glucose measurement by glucometer (mas s/volume) 339 mg/dL 70-110 Capillary blood glucose measurement by g lucometer (mass/volume) - 04/30/19 05:09 Capillary blood glucose measurement by glucometer (mas s/volume) 294 mg/dL 70-110 Capillary blood glucose measurement by g lucometer (mass/volume) - 04/30/19 11:02 Capillary blood glucose measurement by glucometer (mas s/volume) 316 mg/dL 70-110 Capillary blood glucose measurement by g lucometer (mass/volume) - 04/30/19 16:02 Capillary blood glucose measurement by glucometer (mas s/volume) 342 mg/dL 70-110 Capillary blood glucose measurement by g lucometer (mass/volume) - 04/30/19 20:00 Capillary blood glucose measurement by glucometer (mas s/volume) 359 mg/dL 70-110 Complete blood count (CBC) with automate d white blood cell (WBC) differential - 05/01/19 05:23 Blood leukocytes automated count (number/volume) 13.1 10*3/uL 4.3-11.0 Blood erythrocytes automated count (number/volume) 5.14 10*6/uL 4.35-5.85 Venous blood hemoglobin measurement (mass/volume) 15.3 g/dL 13.3-17.7 Blood hematocrit (volume fraction) 46 % 40-54 Automated erythrocyte mean corpuscular volume 89 [ foz_us] 80-99 Automated erythrocyte mean corpuscular h emoglobin (mass per erythrocyte) 30 pg 25-34 Automated erythrocyte mean corpuscular h emoglobin concentration measurement (mass/volume) 34 g/dL 32-36 Automated erythrocyte distribution width ratio 13. 6 % 10.0- 14.5 Automated blood platelet count (count/volume) 147 10*3/uL 130-400 Automated blood platelet mean volume measurement 11.7 [foz_us] 7.4-10.4 Automated blood neutrophils/100 leukocytes 93 % 42-75 Automated blood lymphocytes/100 leukocytes 5 % 12-44 Blood monocytes/100 leukocytes 2 % 0-12 Automated blood eosinophils/100 leukocytes 0 % 0-10 Automated blood basophils/100 leukocytes 0 % 0-10 Blood neutrophils automated count (number/volume) 12.2 10*3 1.8-7.8 Blood lymphocytes automated count (number/volume) 0.7 10*3 1.0-4.0 Blood monocytes automated count (number/volume) 0. 3 10*3 0.0-1.0 Automated eosinophil count 0.0 10*3/uL 0 .0-0.3 Automated blood basophil count (count/volume) 0.0 10*3/uL 0.0-0.1 Comprehensive metabolic panel - 05/01/19 05:23 Serum or plasma sodium measurement (moles/volume) 131 mmol/L 135-145 Serum or plasma potassium measurement (moles/volume) 4.7 mmol/L 3.6-5.0 Serum or plasma chloride measurement (moles/volume) 92 mmol/L 98-107 Carbon dioxide 23 mmol/L 21-32 Serum or plasma anion gap determination (moles/volume) 16 mmol/L 5-14 Serum or plasma urea nitrogen measurement (mass/volume ) 30 mg/dL 7-18 Serum or plasma creatinine measurement (mass/volume) 1.77 mg/dL 0.60-1.30 Serum or plasma urea nitrogen/creatinine mass ratio 17 NRG Serum or plasma creatinine measurement w ith calculation of estimated glomerular filtration rate 38 NRG Serum or plasma glucose measurement (mass/volume) 432 mg/dL 70-105 Serum or plasma calcium measurement (mass/volume) 9.2 mg/dL 8.5-10.1 Serum or plasma total bilirubin measurement (mass/volu me) 0.5 mg/dL 0.1-1.0 Serum or plasma alkaline phosphatase gerda surement (enzymatic activity/volume) 69 U/L 40-136 Serum or plasma aspartate aminotransfera se measurement (enzymatic activity/volume) 22 U/L 5-34 Serum or plasma alanine aminotransferase measurement (enzymatic activity/volume) 29 U/L 0-55 Serum or plasma protein measurement (mass/volume) 7.1 g/dL 6.4-8.2 Serum or plasma albumin measurement (mass/volume) 3.8 g/dL 3.2-4.5 CALCIUM CORRECTED 9.4 mg/dL 8.5-10.1 Capillary blood glucose measurement by g lucometer (mass/volume) - 05/01/19 05:45 Capillary blood glucose measurement by glucometer (mas s/volume) 360 mg/dL 70-110 Encounters ACCT No. Visit Date/Time Discharge Status Pt. Type Provider Facility Loc./Unit Complaint [id number] 07/21/2019 11:17:00 23:59:59 CLS Outpatient SEJAL CHAMORRO APRN [facility] RAD PNEUMONIA [id number] 07/10/2019 09:28:00 23:59:59 CLS Outpatient VERENA LNACE MD [facility] RAD COPD, COUGH [id number] 04/28/2019 20:00:00 11:43:00 DIS Inpatient CARLOS COLUNGA DO, [facility] 4TH COPD EXACERBATION WITH ACUTE BRONCHITIS [id number] 03/21/2019 13:35:00 23:59:59 CLS Outpatient JOHAN LAROSE MD [facility] RAD BILATERAL HYDRO [id number] 02/28/2019 08:06:00 23:59:59 CLS Outpatient JOHAN LAROSE MD [facility] RAD GROSS HEMATURIA [id number] 02/21/2019 12:09:00 23:59:59 CLS Outpatient VERENA LANCE MD [facility] RAD R THYROID NODULE [id number] 02/12/2019 15:18:00 23:59:59 CLS Outpatient VERENA LANCE MD [facility] RAD CHEST PAIN [id number] 10/07/2018 14:11:00 019 23:59:59 CLS Outpatient VERENA LANCE MD [facility] RAD CHEST PAIN,COPD [id number] 09/29/2018 17:36:00 019 20:06:00 DIS Emergency KANDICE DOAMANDA [facility] ER SOA [id number] 06/06/2017 06:43:00 018 13:20:00 DIS Outpatient SILAS HAINES MD [facility] CATH ABN STRESS TEST, CAD [id number] 05/30/2017 07:43:00 018 23:59:59 CLS Outpatient MARIA GUADALUPE CARRERA [facility] CARD I25.10 CAD [id number] 05/25/2017 11:47:00 018 23:59:59 CLS Outpatient MARIA GUADALUPE CARRERA [facility] CARD I25.10 CAD [id number] 11/05/2016 19:16:00 017 20:08:00 DIS Emergency KANDICE DOAMANDA [facility] ER CATHETER ISSUES [id number] 10/31/2016 06:14:00 017 13:20:00 DIS Outpatient JOHAN LAROSE MD [facility] SDC URINE RETENTION, NEUROG ENIC BLADDER, BPH [id number] 10/24/2016 14:21:00 017 16:00:00 DIS Outpatient JOHAN LAROSE MD [facility] PREOP TURP [id number] 09/28/2016 12:55:00 017 23:59:59 CLS Outpatient JOHAN LAROSE MD [facility] RAD HEMATURIA R31.9 [id number] 08/25/2016 18:30:00 017 20:42:00 DIS Emergency TREVOR MCCABE DO [facility] ER BLOOD IN URINE [id number] 07/24/2016 18:47:00 017 13:30:00 DIS Inpatient RAY UP, ALFRED Montoya [facility] 4TH UTI,HYPONATREMIA,RENAL INSUFFICIENCY,GENERALIZED W [id number] 06/14/2016 19:50:00 017 06:50:00 DIS Outpatient SILAS HAINES MD [facility] SLEEP OBSTRUCTIVE SLEEP APNEA [id number] 04/28/2016 04:19:00 016 07:19:00 DIS Emergency JOANNA ANDREW MD [facility] ER SOA [id number] 04/08/2016 15:52:00 18:21:00 DIS Emergency JANESSA SMITH MD S [facility] ER HTN [id number] 04/07/2016 20:57:00 22:20:00 DIS Emergency JOANNA ANDREW MD [facility] ER HEAD PAIN [id number] 03/22/2016 12:23:00 016 10:30:00 DIS Outpatient SILAS HAINES MD [facility] CATH ABN STRESS TEST,CP,HTN [id number] 03/20/2016 14:13:00 18:00:00 DIS Emergency TREVOR MCCABE DO [facility] ER WEAKNESS [id number] 03/13/2016 08:21:00 23:59:59 CLS Outpatient SILAS HAINES MD [facility] CARD CAD,CHEST PAIN SYNDROME ,HTN,HLP [id number] 03/09/2016 09:31:00 23:59:59 CLS Outpatient SILAS HAINES MD [facility] CARD CAD, CHEST PAIN SYNDROM E, HTN, HYPERLIPIDEMIA, [id number] 03/04/2016 11:10:00 14:35:00 DIS Emergency VANNESSA MORRIS [facility] ER SOB [id number] 02/24/2016 18:24:00 21:34:00 DIS Emergency ALEENA LANCE MD [facility] ER CP [id number] 02/19/2016 10:40:00 12:50:00 DIS Inpatient JANESSA ROWAN MD [facility] 4TH ACUTE BRONCHITIS AND HY POXIA [id number] 12/03/2015 22:05:00 10:30:00 DIS Inpatient VERENA LANCE MD [facility] 4TH UTI,DEHYDRATION,ELECTRO LYTE IMBALANCE,COPD [id number] 06/03/2015 11:56:00 09:45:00 DIS Inpatient JOHNY UP, NAM Josue [facility] IRF PNA UTI SEVERE SEPSIS [id number] 11/19/2014 10:24:00 23:59:59 CLS Outpatient MARIA GUADALUPE CARRERA [facility] RAD CAD,COPD,HT N,HLP [id number] 04/15/2014 15:57:00 014 18:08:00 DIS Emergency JOANNA ANDREW MD [facility] ER SOA [id number] 04/06/2014 14:00:00 23:59:59 CLS Outpatient MARIA GUADALUPE CARRERA [facility] RAD CAD,COPD,HT N,HLP [id number] 09/13/2013 07:00:00 014 10:02:00 DIS Emergency KANDICE DOAMANDA [facility] ER POSS INSULIN RXN [id number] 07/11/2013 21:00:00 014 16:10:00 DIS Inpatient VERENA LANCE MD [facility] 4TH HYPONATREMIA, AMS, ARF, UTI [id number] 01/26/2017 09:34:00 Document Registration [id number] 01/26/2017 09:34:00 Document Registration [id number] 01/26/2017 09:34:00 Document Registration [id number] 01/26/2017 09:34:00 Document Registration [id number] 01/26/2017 09:34:00 Document Registration [id number] 05/31/2015 12:47:[address] Inpatient [facility], VERENA Sanchez [address] UTI SEVERE SEPSIS [id number] 03/31/2014 14:33:00 Document Registration [id number] 03/31/2014 14:33:00 Document Registration [id number] 03/31/2014 14:33:00 Document Registration [id number] 03/31/2014 14:33:00 Document Registration [id number] 03/31/2014 14:33:00 Document Registration [id number] 03/31/2014 14:33:00 Document Registration [id number] 03/31/2014 14:33:00 Document Registration [id number] 03/31/2014 14:33:00 Document Registration [id number] 03/31/2014 14:33:00 Document Registration [id number] 03/31/2014 14:33:00 Document Registration [id number] 04/24/2012 08:10:00 Document Registration [id number] 01/29/2012 07:01:00 Document Registration [id number] 01/26/2012 08:08:00 Document Registration [id number] 08/23/2011 15:50:00 Document Registration [id number] 08/20/2011 09:50:00 Document Registration [id number] 08/16/2011 12:55:00 Document Registration [id number] 07/21/2011 19:05:00 Document Registration [id number] 01/09/2010 10:35:00 Document Registration [id number] 12/08/2009 15:37:00 Document Registration [id number] 06/29/2009 15:20:00 Document Registration [id number] 06/23/2009 21:00:00 Document Registration [id number] 06/21/2009 09:25:00 Document Registration [id number] 03/30/2009 14:56:00 Document Registration [id number] 12/10/2008 20:49:00 Document Registration [id number] 05/13/2008 07:30:00 Document Registration [id number] 10/10/2007 19:24:00 Document Registration [id number] 02/13/2006 12:59:00 Document Registration [id number] 09/29/2005 07:44:00 Document Registration [id number] 09/28/2005 09:15:00 Document Registration
[2019-07-28] MEDS ORDERED: RT-ALBUTEROL/IPRATROPIUM 3 ML (DUONEB) VIAL INH ONE (05:30)
--- NOTE | 2019-07-28 05:30 | ED Respiratory ---
General Chief Complaint: Respiratory Problems Stated Complaint: PNUEMONIA,SOB Nursing Triage Note: 2ND ROUND ANTIBIOTICS WITH PNEUMONIA Source: patient, EMS Exam Limitations: no limitations History of Present Illness Date Seen by Provider: Jul 28, 2019 Time Seen by Provider: 05:12 Initial Comments The patient presents to ER from [facility] by EMS after nursing staff thought that his lungs sounded worse. The did not give him a breathing treatment. His last breathing treatment was last night. He typically takes 4 times a day. He has a history of COPD but does not smoke. He has went through 2 different antibiotics and just finished. He says he doesn't feel it is completely over it yet. He's had an indwelling Escalante catheter for the past several weeks. He follows with Dr. Lance for primary care. He has not had any fever recently. His cough is at baseline. He is on 4 L of oxygen by nasal cannula which is at baseline. He denies any pain nausea vomiting or diarrhea. He takes Lasix 20 mg daily. He is diabetic. Looks like been on 2 courses of Levaquin. Allergies and Home Medications Allergies Coded Allergies: Penicillins (Unverified Allergy, Mild, HIVES, 09/19/08) duloxetine HCl (Verified Allergy, Mild, 08/20/11) Home Medications Acetaminophen 325 Mg Tablet, 650 MG PO Q4H PRN for PAIN/TEMP, (Reported) TAKES 2 (325MG) TABS Albuterol Sulfate 1 Puff Puff, 2 PUFF IH Q6H PRN for SHORTNESS OF BREATH, (Reported) Amlodipine Besylate 10 Mg Tablet, 10 MG PO DAILY, (Reported) Ascorbic Acid 500 Mg Tablet, 1,500 MG PO DAILY, (Reported) Aspirin 81 Mg Tablet.dr, 81 MG PO DAILY, (Reported) Bethanechol Chloride 50 Mg Tablet, 50 MG PO QIDACHS, (Reported) Bupropion HCl 300 Mg Tab.er.24h, 300 MG PO DAILY, (Reported) Cefdinir 300 Mg Capsule, 300 MG PO BID Prescribed by: SAMI LAM on 05/01/19 1026 Citalopram Hydrobromide 20 Mg Tablet, 20 MG PO DAILY, (Reported) Docusate Sodium 100 Mg Capsule, 100 MG PO BID, (Reported) Furosemide 20 Mg Tablet, 20 MG PO DAILY, (Reported) Ibuprofen 800 Mg Tablet, 800 MG PO Q8H PRN for PAIN-MILD, (Reported) Insulin Aspart 300 Units/3 Ml Solution, SQ TIDAC, (Reported) USE PER SLIDING SCALE: 151-200=2 UNITS 201-250=4 UNITS 251-300=6 UNITS 301- 350=8 UNITS 351-400=10 UNITS Insulin Glargine,Hum.rec.anlog 100 Unit/1 Ml Insuln.pen, 48 UNITS SQ HS, (Reported) Isosorbide Mononitrate 30 Mg Tab.er.24h, 30 MG PO DAILY, (Reported) Losartan Potassium 100 Mg Tablet, 100 MG PO DAILY, (Reported) Metoprolol Succinate 50 Mg Tab.er.24h, 50 MG PO BID, (Reported) Nystatin 15 Gm Cream..g., 1 APPLIC TP TID, (Reported) Pantoprazole Sodium 40 Mg Tablet.dr, 40 MG PO DAILY, (Reported) Potassium Chloride 20 Meq Tablet.er, 20 MEQ PO DAILY, (Reported) TAKE WITH FUROSEMIDE Prednisone 20 Mg Tab, 40 MG PO DAILY@0700 Prescribed by: SAMI LAM on 05/01/19 1026 Risperidone 2 Mg Tablet, 2 MG PO DAILY, (Reported) Simvastatin 10 Mg Tablet, 10 MG PO HS, (Reported) Tiotropium [place] 4 Gm Mist.inhal, 2 PUFF IH DAILY, (Reported) Trazodone HCl 150 Mg Tablet, 150 MG PO HS, (Reported) Patient Home Medication List Home Medication List Reviewed: Yes Review of Systems Review of Systems Constitutional: No chills, No fever; malaise EENTM: No ear discharge, No ear pain Respiratory: cough, phlegm, short of breath, wheezing Cardiovascular: see HPI; No chest pain, No edema; Hx of Intervention Gastrointestinal: No abdominal pain, No nausea, No vomiting Genitourinary: No discharge, No dysuria Musculoskeletal: No back pain, No joint pain Skin: No pruritus, No rash Psychiatric/Neurological: Denies Headache, Denies Numbness All Other Systems Reviewed Negative Unless Noted: Yes Past Wsnnxcg-Dnrlit-Rufqsr Hx Patient Social History Alcohol Use: Denies Use Recreational Drug Use: No Smoking Status: Former Smoker Type Used: Cigarettes Former Smoker, Quit: Jun 06, 2012 2nd Hand Smoke Exposure: No Recent Foreign Travel: No Contact w/Someone Who Travel: No Recent Infectious Disease Expo: No Recent Hopitalizations: No Physical Abuse: No Sexual Abuse: No Mistreated: No Fear: No Immunizations Up To Date Date of Pneumonia Vaccine: Mar 07, 2010 Date of Influenza Vaccine: Mar 07, 2017 Seasonal Allergies Seasonal Allergies: No Past Medical History Surgeries: Yes (CARDIAC CATH 05/2017--PATENT STENT, NON-OCCLUSIIVE CAD--NO INTERVENTION) Cardiac, Coronary Stent, Eye Surgery, Transurethral Resection Respiratory: Yes (HX OF SEPSIS, O2 AT 3 L/NC CONTINUOUSLY; CHRONIC COUGH) Pneumonia, Chronic Bronchitis, Sleep Apnea, COPD Currently Using CPAP: Yes Cardiac: Yes (RBBB, LAFB; CARDIAC CATHS--STENT X 1) Chronic Edema/Swelling, Coronary Artery Disease, High Cholesterol, Hypertension Neurological: Yes Dementia, Neuropathy Reproductive Disorders: No Sexually Transmitted Disease: No HIV/AIDS: No Genitourinary: Yes (INDWELLING ESCALANTE, CHRONIC BILATERAL HYDRONEPHROSIS) Benign Prostatic Hyperpl, Prostate Problems, Neurogenic Bladder, UTI-Chronic Gastrointestinal: Yes Gastroesophageal Reflux, Chronic Constipation Musculoskeletal: Yes Arthritis, Chronic Back Pain Endocrine: Yes (THYROID NODULE) Diabetes, Insulin dep HEENT: Yes (ANGIOEDEMA OF TONGUE) Cataract Hearing Impairment: Hard of Hearing Cancer: No Psychosocial: Yes Sleep Difficulties, Anxiety, Depression Integumentary: No Blood Disorders: No Adverse Reaction/Blood Tranf: No Family Medical History Family history: Hypertension 03 FATHER Stroke 03 MOTHER No Pertinent Family Hx PSH: -CATARACT SURGERY -TURP 10/31/[address] LAROSE -CARDIAC CATHS--STENT X 1--LAST CATH 05/2017--PATENT STENT, NON-OCCLUSIVE CAD, NO INTERVENTION -CHOLECYSTETCOMY Physical Exam Vital Signs - First Documented 07/28/19 05:15 Temp 37.0 Pulse 62 Resp 20 B/P (MAP) 130/75 (93) Pulse Ox 99 O2 Delivery Nasal Cannula O2 Flow Rate 2.00 Capillary Refill : Less Than 3 Seconds Height: 5'9.00" Weight: 260lbs. 0.0oz. 117.110964wh; 37.00 BMI Method:Stated General Appearance: no apparent distress, obese Eyes: Bilateral Eye Normal Inspection, Bilateral Eye PERRL, Bilateral Eye EOMI HEENT: PERRL/EOMI, normal ENT inspection, pharynx normal Neck: full range of motion, supple, normal inspection Respiratory: no respiratory distress (on 4 L by nasal cannula satting in the upper 90s.), no accessory muscle use Cardiovascular: normal peripheral pulses, regular rate, rhythm Gastrointestinal: normal bowel sounds, non tender, soft Extremities: normal range of motion, no pedal edema, normal capillary refill Neurologic/Psychiatric: alert, normal mood/affect, oriented x 3 Skin: normal color, warm/dry Progress/Results/Core Measures Suspected Sepsis Recent Fever Within 48 Hours: No Infection Criteria Present: Documented Infection New/Unexplained Altered Menta: No Sepsis Screen: No Definite Risk SIRS Temperature: Pulse: 62 Respiratory Rate: 20 Laboratory Tests 07/28/19 05:24: White Blood Count 7.1 Blood Pressure 130 /75 Mean: 93 Laboratory Tests 07/28/19 05:24: Creatinine 1.63H, Platelet Count 149, Total Bilirubin 0.5 Results/Orders Lab Results Laboratory Tests Test 07/28/19 05:20 07/28/19 05:24 07/28/19 05:29 Range/Units Urine Color YELLOW Urine Clarity SL CLOUDY Urine pH 6.0 5-9 Urine Specific [place] >=1.030 1.016-1.022 Urine Protein 1+ H NEGATIVE Urine Glucose (UA) NEGATIVE NEGATIVE Urine Ketones NEGATIVE NEGATIVE Urine Nitrite POSITIVE H NEGATIVE Urine Bilirubin NEGATIVE NEGATIVE Urine Urobilinogen 0.2 < = 1.0 MG/DL Urine Leukocyte Esterase TRACE H NEGATIVE Urine RBC (Auto) NEGATIVE NEGATIVE Urine RBC NONE /HPF Urine WBC 2-5 /HPF Urine Squamous Epithelial Cells NONE /HPF Urine Crystals PRESENT H /LPF Urine Amorphous Sediment MOD MARK URATES H /LPF Urine Bacteria FEW H /HPF Urine Casts NONE /LPF Urine Mucus SMALL H /LPF Urine Culture Indicated YES White Blood Count 7.1 4.3-11.0 10^3/uL Red Blood Count 4.82 4.35-5.85 10^6/uL Hemoglobin 14.4 13.3-17.7 G/DL Hematocrit 43 40-54 % Mean Corpuscular Volume 90 80-99 FL Mean Corpuscular Hemoglobin 30 25-34 PG Mean Corpuscular Hemoglobin Concent 33 32-36 G/DL Red Cell Distribution Width 14.5 10.0-14.5 % Platelet Count 149 130-400 10^3/uL Mean Platelet Volume 10.7 H 7.4-10.4 FL Neutrophils (%) (Auto) 60 42-75 % Lymphocytes (%) (Auto) 21 12-44 % Monocytes (%) (Auto) 10 0-12 % Eosinophils (%) (Auto) 9 0-10 % Basophils (%) (Auto) 0 0-10 % Neutrophils # (Auto) 4.3 1.8-7.8 X 10^3 Lymphocytes # (Auto) 1.5 1.0-4.0 X 10^3 Monocytes # (Auto) 0.7 0.0-1.0 X 10^3 Eosinophils # (Auto) 0.7 H 0.0-0.3 10^3/uL Basophils # (Auto) 0.0 0.0-0.1 10^3/uL Sodium Level 138 135-145 MMOL/L Potassium Level 4.4 3.6-5.0 MMOL/L Chloride Level 98 98-107 MMOL/L Carbon Dioxide Level 29 21-32 MMOL/L Anion Gap 11 5-14 MMOL/L Blood Urea Nitrogen 25 H 7-18 MG/DL Creatinine 1.63 H 0.60-1.30 MG/DL Estimat Glomerular Filtration Rate 42 BUN/Creatinine Ratio 15 Glucose Level 147 H 70-105 MG/DL Calcium Level 8.8 8.5-10.1 MG/DL Corrected Calcium 9.0 8.5-10.1 MG/DL Total Bilirubin 0.5 0.1-1.0 MG/DL Aspartate Amino Transf (AST/SGOT) 14 5-34 U/L Alanine Aminotransferase (ALT/SGPT) 14 0-55 U/L Alkaline Phosphatase 70 40-136 U/L C-Reactive Protein High Sensitivity 0.88 H 0.00-0.50 MG/DL B-Type Natriuretic Peptide 27.6 <100.0 PG/ML Total Protein 6.4 6.4-8.2 GM/DL Albumin 3.7 3.2-4.5 GM/DL Blood Gas Puncture Site RIGHT RADIAL Blood Gas Patient Temperature 37.0 Arterial Blood pH 7.37 7.37-7.43 Arterial Blood Partial Pressure CO2 56 H 35-45 MMHG Arterial Blood Partial Pressure O2 117 H 79-93 MMHG Arterial Blood HCO3 31 H 23-27 MMOL/L Arterial Blood Total CO2 33.0 H 21.0-31.0 MMOL/L Arterial Blood Oxygen Saturation 97 94-100 % Arterial Blood Base Excess 6.1 H -2.5-2.5 MMOL/L David Test YES-POS Blood Gas Ventilator Setting NO Blood Gas Inspired Oxygen 4L Micro Results Microbiology 07/28/19 Influenza Types A,B Antigen (STEPHANIE) - Final, Complete My Orders Orders - NICOLA ODELL Ed Iv/Invasive Line Start (07/28/19 05:21) Ns Iv 500 Ml (Sodium Chloride 0.9%) (07/28/19 05:21) Albuterol/Ipra Inhalation Soln (Duoneb I (07/28/19 05:30) Chest 1 View, Ap/Pa Only (07/28/19 05:21) Svn Small Volume Nebulizer (07/28/19 05:21) Cbc With Automated Diff (07/28/19 05:21) Comprehensive Metabolic Panel (07/28/19 05:21) Hs C Reactive Protein (07/28/19 05:21) Influenza A And B Antigens (07/28/19 05:21) Arterial Blood Gas (07/28/19 05:21) Ua Culture If Indicated (07/28/19 05:21) BNP (07/28/19 05:30) Urine Culture (07/28/19 05:20) Medications Given in ED Current Medications Medications Dose Ordered Sig/Areli Route Start Time Stop Time Status Last Admin Dose Admin Albuterol/ Ipratropium 3 ml ONCE ONCE INH 07/28/19 05:30 07/28/19 05:31 DC 07/28/19 06:22 3 ML Sodium Chloride 500 ml @ 0 mls/hr Q0M ONCE IV 07/28/19 05:21 07/28/19 05:25 DC 07/28/19 06:10 500 MLS/HR Vital Signs/I&O 07/28/19 05:15 Temp 37.0 Pulse 62 Resp 20 B/P (MAP) 130/75 (93) Pulse Ox 99 O2 Delivery Nasal Cannula O2 Flow Rate 2.00 Capillary Refill : Less Than 3 Seconds Blood Pressure Mean: 93 Progress Note #1: Time: 05:37 Progress Note Labs, chest x-ray, DuoNeb, ABG, CRP, urinalysis since he has a indwelling Escalante catheter. Progress Note #2: Time: 06:57 Progress Note Labs are reassuring. Chest x-ray shows interval improvement of the airspace opacities since the last 3 weeks. This would be expected that the opacities or not gone completely. ABG is stable, chronic. Patient's oxygen saturations are good 99% on his baseline. His wheezing is gone except for a small bit of wheezing on the right side barely audible to auscultation. The patient states he feels much better. Recommend Mucinex, increasing often he gets the breathing treatments and close follow-up in the next 1-2 weeks with primary care. Diagnostic Imaging Diagonstic Imaging: Xray Plain Films/CT/US/NM/MRI: chest (1v) Comments Interval improvement of the airspace opacities seen in the past 3 weeks. Reviewed: Reviewed by Me Departure Communication (PCP) 0700: Discussed with Nayan Benavides and he agrees to follow-up with the patient and agrees with plan. Impression Primary Impression: COPD (chronic obstructive pulmonary disease) Qualified Codes: J44.1 - Chronic obstructive pulmonary disease with (acute) exacerbation Additional Impressions: History of pneumonia Asymptomatic bacteriuria Disposition: HOME, SELF-CARE Condition: Improved Departure-Patient Inst. Decision time for Depature: 07:47 Referrals: VERENA LANCE MD (PCP/Family) Primary Care Physician Patient Instructions: Exacerbation of COPD (DC) Add. Discharge Instructions: The pneumonia seems to be taken care for the time being. He still have problems with his COPD and will have for the next 2-3 weeks. If you develop fever, worsening shortness of breath that does not respond to DuoNeb or other worrisome symptoms then you need to return to the ER. Please follow-up this week with primary care. For the next 7 days he should take the DuoNeb every 4 hours on a scheduled basis while awake. Every 2 hours if he's having wheezing shortness of air or coughing fits you can take an extra DuoNeb. Tessalon Perles 1 capsule every 6 hours as needed for cough. Mucinex 1 tab every 4 hours as needed for cough or thick mucus. For the next week increase her fluid intake. All discharge instructions reviewed with patient and/or family. Voiced understanding. Scripts Ipratropium/Albuterol Sulfate (Iprat-Albut 0.5-3(2.5) mg/3 ml) 3 Ml Ampul.neb 3 ML IH Q4H for 7 Days, #42 EACH 0 Refills Prov: NICOLA ODELL 07/28/19 Benzonatate (Tessalon Perle) 100 Mg Capsule 100 MG PO Q6H PRN for cough for 7 Days, #30 CAP 0 Refills Prov: NICOLA ODELL 07/28/19 Guaifenesin (Mucinex) 100 Mg Gran.pack 100 MG PO Q4H PRN for COUGH for 7 Days, #30 EA 0 Refills Prov: NICOLA ODELL 07/28/19 NICOLA ODELL Jul 28, 2019 05:30
[2019-07-28 05:36] LABS: BASOPHILS % (AUTO) 0 % (0-10); EOSINOPHILS # (AUTO) 0.7 10^3/uL (0.0-0.3); EOSINOPHILS % (AUTO) 9 % (0-10); HEMATOCRIT 43 % (40-54); HEMOGLOBIN 14.4 G/DL (13.3-17.7); LYMPHOCYTES # (AUTO) 1.5 X 10^3 (1.0-4.0); LYMPHOCYTES % (AUTO) 21 % (12-44); MEAN CORPUSCULAR HEMOGLOBIN 30 PG (25-34); MEAN CORPUSCULAR HGB CONC 33 G/DL (32-36); MEAN CORPUSCULAR VOLUME 90 FL (80-99); MEAN PLATELET VOLUME 10.7 FL (7.4-10.4); MONOCYTES # (AUTO) 0.7 X 10^3 (0.0-1.0); MONOCYTES % (AUTO) 10 % (0-12); NEUTROPHILS # (AUTO) 4.3 X 10^3 (1.8-7.8); NEUTROPHILS % (AUTO) 60 % (42-75); PLATELET COUNT 149 10^3/uL (130-400); RED CELL DISTRIBUTION WIDTH 14.5 % (10.0-14.5); WHITE BLOOD COUNT 7.1 10^3/uL (4.3-11.0)
[2019-07-28 05:37] LABS: BILIRUBIN,URINE NEGATIVE (NEGATIVE); CLARITY,URINE SL CLOUDY; COLOR,URINE YELLOW; GLUCOSE, URINE (UA) NEGATIVE (NEGATIVE); KETONES,URINE NEGATIVE (NEGATIVE); LEUKOCYTE ESTERASE ,URINE TRACE (NEGATIVE); NITRITE,URINE POSITIVE (NEGATIVE); PROTEIN,URINE 1+ (NEGATIVE)
[2019-07-28 05:38] LABS: ABG BASE EXCESS 6.1 MMOL/L (-2.5-2.5); ABG OXYGEN SATURATION 97 % (94-100); ABG PCO2 56 MMHG (35-45); ABG PH 7.37 (7.37-7.43); ABG PO2 117 MMHG (79-93)
[2019-07-28 05:40] LABS: ALLENS TEST YES-POS; INSPIRED O2 4L; VENTILATOR NO
[2019-07-28 05:47] LABS: AMORPHOUS SEDIMENT,UR MOD AMOR URATES /LPF; BACTERIA,URINE FEW /HPF
[2019-07-28 05:54] LABS: ALBUMIN 3.7 GM/DL (3.2-4.5); BILIRUBIN,TOTAL 0.5 MG/DL (0.1-1.0); CALCIUM 8.8 MG/DL (8.5-10.1); CREATININE SERUM 1.63 MG/DL (0.60-1.30); POTASSIUM 4.4 MMOL/L (3.6-5.0); TOTAL PROTEIN 6.4 GM/DL (6.4-8.2)
--- NOTE | 2019-07-28 07:36 | Diagnostic Imaging Report ---
INDICATION: Shortness of breath COMPARISON: 07/21/2019 TECHNIQUE: 2 radiographs of the chest dated 07/28/2019. FINDINGS: The cardiac silhouette is within normal limits in size. No significant pulmonary vascular congestion. The lungs are hyperinflated with flattening of the diaphragm. Slightly worsening bibasilar interstitial opacities. No significant pleural effusion. No pneumothorax. No acute osseous abnormality. IMPRESSION: Minimally worsening bibasilar atelectasis and/or pneumonitis superimposed upon background chronic obstructive pulmonary disease. Dictated by: Dictated on workstation # [id number]
[2019-07-28] MEDS ORDERED: IPRA3AMP31 IH (07:50)
[2019-07-28] MEDS ORDERED: BENZ-13 PO (07:50)
[2019-07-28] MEDS ORDERED: GUAI100G2 PO (07:50)
--- NOTE | 2019-07-28 07:50 | NUR ---
[facility] called at this time and pt discharge instructions gone over with pt nurse.
[2019-07-28 08:57] VITALS: BP 144/91
--- NOTE | 2019-07-31 12:28 | NUR ---
Spoke to Yvette at [facility] regarding urine culture. Script called to [facility].
== END 2019-07-28 08:57 ==
LOC: EDUNIT# 05:14 → ER 05:16
DX: J44.1 Chronic obstructive pulmonary disease with (acute) exacerbation (principal); Z87.01 Personal history of pneumonia (recurrent); R82.71 Bacteriuria; E11.40 Type 2 diabetes mellitus with diabetic neuropathy, unspecified; Z79.4 Long term (current) use of insulin; I25.10 Atherosclerotic heart disease of native coronary artery without angina pectoris; G47.30 Sleep apnea, unspecified; E78.00 Pure hypercholesterolemia, unspecified; I10 Essential (primary) hypertension; F03.90 Unspecified dementia, unspecified severity, without behavioral disturbance, psychotic disturbance, mood disturbance, and anxiety; N40.0 Benign prostatic hyperplasia without lower urinary tract symptoms; N31.9 Neuromuscular dysfunction of bladder, unspecified; K21.9 Gastro-esophageal reflux disease without esophagitis; M19.91 Primary osteoarthritis, unspecified site; M54.9 Dorsalgia, unspecified; F41.9 Anxiety disorder, unspecified; F32.9 Major depressive disorder, single episode, unspecified; Z95.5 Presence of coronary angioplasty implant and graft
CPT/HCPCS: 36415; 71045; 80053; 81000; 82805; 83880; 85025; 86141; 87077; 87088; 87186; 87804; 94640

== ENCOUNTER → 2019-09-19 | Outpatient (CLI) | payer MEDICARE, MEDICAID ==
[~2019-09-19] MED LIST changes: +BENZ-13 PO; +GUAI100G2 PO; +IPRA3AMP31 IH
--- NOTE | 2019-09-19 11:32 | Diagnostic Imaging Report ---
INDICATION: Two weeks post fall with left-sided rib pain. TECHNIQUE: Single view chest along with 3 views the left ribs at 11:10 AM. CORRELATION STUDY: Chest 07/28/2019 FINDINGS: Heart size remains enlarged. Vasculature is slightly prominent. Some increasing markings at the bilateral lung bases, likely minimal atelectasis. No definitive infiltrate, effusion or pneumothorax. Imaging of the left ribs demonstrates no acute displaced rib fracture deformity. IMPRESSION: 1. Stable heart size with vasculature slightly increased. Minimal bibasilar atelectasis. 2. Negative for acute displaced left sided rib fracture. Dictated by: Dictated on workstation # [id number]
== END ==
LOC: RAD 10:41
PROVIDERS: ATTEND Physician Assistant
DX: R07.81 Pleurodynia (principal); J44.9 Chronic obstructive pulmonary disease, unspecified
CPT/HCPCS: 71101

== ENCOUNTER 2019-11-16 15:29 | Inpatient (IN) | payer MEDICARE, MEDICAID ==
[~2019-11-16] VITALS: Ht 175.2 cm; Wt 112.9 kg
[2019-11-16 15:56] VITALS: BP 142/72
--- NOTE | 2019-11-16 15:58 | ED General ---
General Stated Complaint: FALL/SOB/FEVER Source of Information: Patient Exam Limitations: No Limitations History of Present Illness Date Seen by Provider: Nov 16, 2019 Time Seen by Provider: 15:55 Initial Comments to ER by EMS from [facility] with reports of a fall 2 since Sunday. Did not hit his head during either of the falls. He does complain of some right leg pain from the knee to the ankle. He was reported to have had a fever of 100.4 on Sunday and given Tylenol. He has COPD and wears oxygen at 2 L [id number]. Reportedly staff had to increase that to 3 L to maintain oxygenation. However on arrival here he is on 3 L at 100% so I reduced him back down to 2 L. He does have an increased cough which is unusual for him but he is no more short of breath and any other day he states.custodial staff reports that he has chronic kidney disease with a chronic indwelling [place]alante catheter and has had reduced output over the past few days Timing/Duration: 1-2 Days Severity: Moderate Associated Systoms: Cough, Weakness Allergies and Home Medications Allergies Coded Allergies: Penicillins (Unverified Allergy, Mild, HIVES, 11/16/19) duloxetine HCl (Verified Allergy, Mild, 11/16/19) Home Medications Acetaminophen 325 Mg Tablet, 650 MG PO Q4H PRN for PAIN/TEMP, (Reported) TAKES 2 (325MG) TABS Albuterol Sulfate 1 Puff Puff, 2 PUFF IH Q6H PRN for SHORTNESS OF BREATH, (Reported) Amlodipine Besylate 10 Mg Tablet, 10 MG PO DAILY, (Reported) Ascorbic Acid 500 Mg Tablet, 1,500 MG PO DAILY, (Reported) Aspirin 81 Mg Tablet.dr, 81 MG PO DAILY, (Reported) Benzonatate 100 Mg Capsule, 100 MG PO Q6H PRN for cough Prescribed by: NICOLA ODELL on 07/28/19 0750 Bethanechol Chloride 50 Mg Tablet, 50 MG PO QIDACHS, (Reported) Bupropion HCl 300 Mg Tab.er.24h, 300 MG PO DAILY, (Reported) Cefdinir 300 Mg Capsule, 300 MG PO BID Prescribed by: SAMI LAM on 05/01/19 1026 Citalopram Hydrobromide 20 Mg Tablet, 20 MG PO DAILY, (Reported) Docusate Sodium 100 Mg Capsule, 100 MG PO BID, (Reported) Furosemide 20 Mg Tablet, 20 MG PO DAILY, (Reported) Guaifenesin 100 Mg Gran.pack, 100 MG PO Q4H PRN for COUGH Prescribed by: NICOLA ODELL on 07/28/19 0750 Ibuprofen 800 Mg Tablet, 800 MG PO Q8H PRN for PAIN-MILD, (Reported) Insulin Aspart 300 Units/3 Ml Solution, SQ TIDAC, (Reported) USE PER SLIDING SCALE: 151-200=2 UNITS 201-250=4 UNITS 251-300=6 UNITS 301- 350=8 UNITS 351-400=10 UNITS Insulin Glargine,Hum.rec.anlog 100 Unit/1 Ml Insuln.pen, 48 UNITS SQ HS, (Reported) Ipratropium/Albuterol Sulfate 3 Ml Ampul.neb, 3 ML IH Q4H Prescribed by: NICOLA ODELL on 07/28/19 0750 Isosorbide Mononitrate 30 Mg Tab.er.24h, 30 MG PO DAILY, (Reported) Losartan Potassium 100 Mg Tablet, 100 MG PO DAILY, (Reported) Metoprolol Succinate 50 Mg Tab.er.24h, 50 MG PO BID, (Reported) Nystatin 15 Gm Cream..g., 1 APPLIC TP TID, (Reported) Pantoprazole Sodium 40 Mg Tablet.dr, 40 MG PO DAILY, (Reported) Potassium Chloride 20 Meq Tablet.er, 20 MEQ PO DAILY, (Reported) TAKE WITH FUROSEMIDE Prednisone 20 Mg Tab, 40 MG PO DAILY@0700 Prescribed by: SAMI LAM on 05/01/19 1026 Risperidone 2 Mg Tablet, 2 MG PO DAILY, (Reported) Simvastatin 10 Mg Tablet, 10 MG PO HS, (Reported) Tiotropium [place] 4 Gm Mist.inhal, 2 PUFF IH DAILY, (Reported) Trazodone HCl 150 Mg Tablet, 150 MG PO HS, (Reported) Patient Home Medication List Home Medication List Reviewed: Yes Review of Systems Review of Systems Constitutional: see HPI; No chills; fever Respiratory: see HPI, phlegm Cardiovascular: no symptoms reported Genitourinary: no symptoms reported Musculoskeletal: see HPI Skin: no symptoms reported Psychiatric/Neurological: No Symptoms Reported Hematologic/Lymphatic: No Symptoms Reported Past [id number] Hx Patient Social History Type Used: Cigarettes Former Smoker, Quit: Jun 06, 2012 2nd Hand Smoke Exposure: No Recent Foreign Travel: No Contact w/Someone Who Travel: No Recent Hopitalizations: No Immunizations Up To Date Date of Pneumonia Vaccine: Mar 07, 2010 Date of Influenza Vaccine: Mar 07, 2017 Seasonal Allergies Seasonal Allergies: No Past Medical History Surgeries: Yes (CARDIAC CATH 05/2017--PATENT STENT, NON-OCCLUSIIVE CAD--NO INTERVENTION) Cardiac, Coronary Stent, Eye Surgery, Transurethral Resection Respiratory: Yes (HX OF SEPSIS, O2 AT 3 L/NC CONTINUOUSLY; CHRONIC COUGH) Pneumonia, Chronic Bronchitis, Sleep Apnea, COPD Currently Using CPAP: Yes Cardiac: Yes (RBBB, LAFB; CARDIAC CATHS--STENT X 1) Chronic Edema/Swelling, Coronary Artery Disease, High Cholesterol, Hypertension Neurological: Yes Dementia, Neuropathy Reproductive Disorders: No Sexually Transmitted Disease: No HIV/AIDS: No Genitourinary: Yes (INDWELLING ESCALANTE, CHRONIC BILATERAL HYDRONEPHROSIS) Benign Prostatic Hyperpl, Prostate Problems, Neurogenic Bladder, UTI-Chronic Gastrointestinal: Yes Gastroesophageal Reflux, Chronic Constipation Musculoskeletal: Yes Arthritis, Chronic Back Pain Endocrine: Yes (THYROID NODULE) Diabetes, Insulin dep HEENT: Yes (ANGIOEDEMA OF TONGUE) Cataract Hearing Impairment: Hard of Hearing Cancer: No Psychosocial: Yes Sleep Difficulties, Anxiety, Depression Integumentary: No Blood Disorders: No Adverse Reaction/Blood Tranf: No Family Medical History Family history: Hypertension 03 FATHER Stroke 03 MOTHER No Pertinent Family Hx PSH: -CATARACT SURGERY -TURP 10/31/[address] LAROSE -CARDIAC CATHS--STENT X 1--LAST CATH 05/2017--PATENT STENT, NON-OCCLUSIVE CAD, NO INTERVENTION -CHOLECYSTETCOMY Physical Exam Vital Signs Vital Signs - First Documented Capillary Refill : Height, Weight, BMI Height: 5'9.00" Weight: 260lbs. 0.0oz. 117.854394vx; 37.00 BMI Method:Stated General Appearance: No Apparent Distress, WD/WN, Chronically ill, Obese Eyes: Bilateral Eye Normal Inspection, Bilateral Eye PERRL, Bilateral Eye EOMI Neck: Full Range of Motion, Normal Inspection Respiratory: No Accessory Muscle Use, No Respiratory Distress, Rhonci Gastrointestinal: Normal Bowel Sounds, Non Tender, Soft Extremity: Normal Capillary Refill, Normal Inspection Neurologic/Psychiatric: Alert, Oriented x3, Other (no sign of head injury such as ecchymosis hematoma laceration or abrasion. No apparent sign of injury to the right lower leg either. He complains of pain. No abrasion or deformity ecchymosis or erythema or swelling) Skin: Normal Color, Warm/Dry Focused Exam Lactate Level 11/16/19 15:39: Lactic Acid Level 1.61 Lactic Acid Level Laboratory Tests Test 11/16/19 15:39 Lactic Acid Level 1.61 MMOL/L (0.50-2.00) Progress/Results/Core Measures Suspected Sepsis SIRS Temperature: Pulse: Respiratory Rate: Laboratory Tests 11/16/19 15:39: White Blood Count 8.7 Blood Pressure / Mean: 11/16/19 15:39: Lactic Acid Level 1.61 Laboratory Tests 11/16/19 15:39: Platelet Count 154 11/16/19 16:21: Creatinine 1.95H, Total Bilirubin 0.7 Results/Orders Lab Results Laboratory Tests Test 11/16/19 15:39 11/16/19 15:41 11/16/19 16:21 Range/Units White Blood Count 8.7 4.3-11.0 10^3/uL Red Blood Count 5.00 4.35-5.85 10^6/uL Hemoglobin 14.7 13.3-17.7 G/DL Hematocrit 45 40-54 % Mean Corpuscular Volume 89 80-99 FL Mean Corpuscular Hemoglobin 29 25-34 PG Mean Corpuscular Hemoglobin Concent 33 32-36 G/DL Red Cell Distribution Width 14.8 H 10.0-14.5 % Platelet Count 154 130-400 10^3/uL Mean Platelet Volume 11.6 H 7.4-10.4 FL Neutrophils (%) (Auto) 72 42-75 % Lymphocytes (%) (Auto) 14 12-44 % Monocytes (%) (Auto) 10 0-12 % Eosinophils (%) (Auto) 4 0-10 % Basophils (%) (Auto) 0 0-10 % Neutrophils # (Auto) 6.3 1.8-7.8 X 10^3 Lymphocytes # (Auto) 1.2 1.0-4.0 X 10^3 Monocytes # (Auto) 0.9 0.0-1.0 X 10^3 Eosinophils # (Auto) 0.3 0.0-0.3 10^3/uL Basophils # (Auto) 0.0 0.0-0.1 10^3/uL Lactic Acid Level 1.61 0.50-2.00 MMOL/L Urine Color YELLOW Urine Clarity CLOUDY Urine pH 6.0 5-9 Urine Specific [place] 1.015 L 1.016-1.022 Urine Protein TRACE H NEGATIVE Urine Glucose (UA) NEGATIVE NEGATIVE Urine Ketones NEGATIVE NEGATIVE Urine Nitrite NEGATIVE NEGATIVE Urine Bilirubin NEGATIVE NEGATIVE Urine Urobilinogen 0.2 < = 1.0 MG/DL Urine Leukocyte Esterase 3+ H NEGATIVE Urine RBC (Auto) TRACE-I NEGATIVE Urine RBC 0-2 /HPF Urine WBC 25-50 H /HPF Urine Squamous Epithelial Cells RARE /HPF Urine Crystals NONE /LPF Urine Bacteria LARGE H /HPF Urine Casts NONE /LPF Urine Mucus NEGATIVE /LPF Urine Culture Indicated CULTURE PENDING Sodium Level 135 135-145 MMOL/L Potassium Level 4.8 3.6-5.0 MMOL/L Chloride Level 98 98-107 MMOL/L Carbon Dioxide Level 25 21-32 MMOL/L Anion Gap 12 5-14 MMOL/L Blood Urea Nitrogen 23 H 7-18 MG/DL Creatinine 1.95 H 0.60-1.30 MG/DL Estimat Glomerular Filtration Rate 34 BUN/Creatinine Ratio 12 Glucose Level 146 H 70-105 MG/DL Calcium Level 8.8 8.5-10.1 MG/DL Corrected Calcium 9.2 8.5-10.1 MG/DL Total Bilirubin 0.7 0.1-1.0 MG/DL Aspartate Amino Transf (AST/SGOT) 19 5-34 U/L Alanine Aminotransferase (ALT/SGPT) 18 0-55 U/L Alkaline Phosphatase 88 40-136 U/L Total Protein 6.9 6.4-8.2 GM/DL Albumin 3.5 3.2-4.5 GM/DL My Orders Orders - JOSHUA MENSAH [employer]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[employer]IC Cbc With Automated Diff (11/16/19 15:52) Comprehensive Metabolic Panel (11/16/19 15:52) Blood Culture (11/16/19 15:52) Sputum Culture (11/16/19 15:52) Urinalysis (11/16/19 15:52) Urine Culture (11/16/19 15:52) Chest 1 View, Ap/Pa Only (11/16/19 15:52) Ed Iv/Invasive Line Start (7/12/20 15:52) Ed Iv/Invasive Line Start (11/16/19 15:52) Vital Signs Adult Sepsis Patie Q15M (11/16/19 15:52) O2 (11/16/19 15:52) Remove Rings In Anticipation O (11/16/19 15:52) Lactic Acid Analyzer (11/16/19 15:52) Tibia/Fibula, Right, 2 Views (11/16/19 15:52) Lactated Ringers (Lr 1000 Ml Iv Solution (11/16/19 16:00) Coronavirus Sars-Cov-2 So 2019 (11/16/19 15:52) Pelvis (11/16/19 15:58) Procalcitonin (Pct) (11/16/19 16:51) Vital Signs/I&O 11/16/19 11/16/19 11/16/19 15:32 15:32 15:56 Temp 36.9 Pulse 79 82 Resp 14 20 B/P (MAP) 130/78 (95) 142/72 (95) Pulse Ox 99 100 O2 Delivery Nasal Cannula Nasal Cannula Nasal Cannula O2 Flow Rate 3.00 3.00 2.00 Capillary Refill : Departure Communication (Admissions) Has a UTI, needs admitted for physical therapy consult, may need custodial transition from assisted living upon discharge depending on how his general weakness progresses. He states that he is typically able to walk around but has been unable to do so for the past 2-3 days because of weakness. This has resulted in his falls. Plain films don't show any evidence of trauma Impression Primary Impression: Urinary tract infectious disease Additional Impression: Weakness generalized Disposition: ADMITTED INPATIENT Condition: Stable Admissions Decision to Admit Reason: Admit from ER (General) Decision to Admit/Date: Nov 16, 2019 Time/Decision to Admit Time: 16:56 Departure-Patient Inst. Referrals: VERENA LANCE MD (PCP/Family) Primary Care Physician JOSHUA MENSAH APRN Nov 16, 2019 15:58
[2019-11-16] MEDS ORDERED: LACTATED RINGERS 1,000 ML IV SCH (16:00)
[2019-11-16 16:02] LABS: BILIRUBIN,URINE NEGATIVE (NEGATIVE); CLARITY,URINE CLOUDY; COLOR,URINE YELLOW; GLUCOSE, URINE (UA) NEGATIVE (NEGATIVE); KETONES,URINE NEGATIVE (NEGATIVE); LEUKOCYTE ESTERASE ,URINE 3+ (NEGATIVE); NITRITE,URINE NEGATIVE (NEGATIVE); PROTEIN,URINE TRACE (NEGATIVE)
[2019-11-16 16:10] LABS: BACTERIA,URINE LARGE /HPF; RBC,URINE 0-2 /HPF; SQUAMOUS EPITHELIAL CELL,UR RARE /HPF; WBC,URINE 25-50 /HPF
[2019-11-16 16:12] LABS: BASOPHILS % (AUTO) 0 % (0-10); EOSINOPHILS # (AUTO) 0.3 10^3/uL (0.0-0.3); EOSINOPHILS % (AUTO) 4 % (0-10); HEMATOCRIT 45 % (40-54); HEMOGLOBIN 14.7 G/DL (13.3-17.7); LYMPHOCYTES # (AUTO) 1.2 X 10^3 (1.0-4.0); LYMPHOCYTES % (AUTO) 14 % (12-44); MEAN CORPUSCULAR HEMOGLOBIN 29 PG (25-34); MEAN CORPUSCULAR HGB CONC 33 G/DL (32-36); MEAN CORPUSCULAR VOLUME 89 FL (80-99); MEAN PLATELET VOLUME 11.6 FL (7.4-10.4); MONOCYTES # (AUTO) 0.9 X 10^3 (0.0-1.0); MONOCYTES % (AUTO) 10 % (0-12); NEUTROPHILS # (AUTO) 6.3 X 10^3 (1.8-7.8); NEUTROPHILS % (AUTO) 72 % (42-75); PLATELET COUNT 154 10^3/uL (130-400); RED CELL DISTRIBUTION WIDTH 14.8 % (10.0-14.5); WHITE BLOOD COUNT 8.7 10^3/uL (4.3-11.0)
--- NOTE | 2019-11-16 16:36 | Diagnostic Imaging Report ---
Indication: Chest pain after recent fall. Comparison: 07/28/2019. Discussion: Single portable upright view of the chest was obtained. Borderline cardiomegaly is stable. Patchy infiltrates within the lung bases is nonspecific and could be seen with atelectasis, pneumonia or contusion. No pleural fluid or pneumothorax. No osseous abnormality. Impression: Nonspecific bibasilar infiltrates. Dictated by: Dictated on workstation # [id number]
--- NOTE | 2019-11-16 16:37 | Diagnostic Imaging Report ---
Indication: Pelvic pain after fall. Comparison: None. Discussion: AP view of the pelvis was obtained. Advanced degenerative disease within the lumbar spine is incompletely viewed. Moderate degenerative disease is noted within the bilateral hips. No fracture or dislocation on this single view. Alignment is anatomic. Soft tissues are unremarkable. Impression: Negative pelvis. Dictated by: Dictated on workstation # [id number]
--- NOTE | 2019-11-16 16:37 | Diagnostic Imaging Report ---
Indication: Right lower leg pain after recent fall. Comparison: None. Discussion: Four views of the right tibia and fibula were obtained. Chondrocalcinosis is present within the right knee. No fracture or dislocation. Right knee effusion is present. Soft tissues are otherwise unremarkable. No radiopaque foreign body. Impression: Right knee effusion and chondrocalcinosis; otherwise, no fracture within the tibia or fibula. Dictated by: Dictated on workstation # [id number]
[2019-11-16 16:44] LABS: ALBUMIN 3.5 GM/DL (3.2-4.5); POTASSIUM 4.8 MMOL/L (3.6-5.0)
[2019-11-16 16:45] LABS: CALCIUM 8.8 MG/DL (8.5-10.1)
[2019-11-16 16:46] LABS: TOTAL PROTEIN 6.9 GM/DL (6.4-8.2)
[2019-11-16 16:48] LABS: BILIRUBIN,TOTAL 0.7 MG/DL (0.1-1.0)
[2019-11-16 16:50] LABS: CREATININE SERUM 1.95 MG/DL (0.60-1.30)
--- OUTSIDE RECORDS SUMMARY | 2019-11-16 17:38 | XMS REPORT | Clinical Summary ---
Author Author [facility] Organization [facility] Address Unknown Phone Unavailable Care Team Providers Care Telephone Quotation Clerk Name Role Phone Moses Mccauley MD Unavailable Bhaskar Alcantara MD PCP Nan Kaufman MD Unavailable Unavailable Source Comments Some departments are not documenting in the electronic medical record. If you d o not see the information that you expected, contact Release of Information in [facility] [employer] Information Management department at [phone] for further assistan ce in locating additional records.[facility] Allergies Comments Active Allergy Reactions Severity Noted [...] Comments Vital Sign 147/94 04/24/2016 4:02 PM [employer] Blood Pressure 88 04/24/2016 4:02 PM [employer] Pulse - - Temperature 16 11/22/2015 2:32 PM CDT Respiratory Rate - - Oxygen Saturation - - Inhaled Oxygen Concentration 108.9 kg (240 lb) 04/24/2016 4:02 PM [employer] Weight 175.3 cm (5' 9") 04/24/2016 4:02 PM [employer] Height 35.44 04/24/2016 4:02 PM [employer] Body Mass Index Plan of Treatment Health Maintenance Due Date Last Done Comments MEDICARE ANNUAL WELLNESS 1945 VISIT DILATED EYE EXAM 1964 DTAP/TDAP VACCINES (1 - 1964 Tdap) FOOT EXAM 1964 HEPATITIS C SCREENING 1964 MICROALBUMIN 1964 PHYSICAL (COMPREHENSIVE) 1964 EXAM COLORECTAL CANCER 1996 SCREENING SHINGLES RECOMBINANT 1996 VACCINE (1 of 2) PNEUMONIA (PPSV23) 2011 VACCINE (1 of 1 - PPSV23) HBA1C 05/24/2016 11/22/2015 INFLUENZA VACCINE 02/05/2020 Results Not on filefrom Last 3 Months Insurance Type Payer Benefit Subscriber ID Effective Phone Address Plan / Dates Group Medicare MEDICARE MEDICARE xxxxxxxxxx [id number] PART A AND resent B [id number] Advance Directives Patient Brine Purifier Explanation Type Date Recorded Advance 09/11/2014 1:05 PM Directive/DPOA
--- OUTSIDE RECORDS SUMMARY | 2019-11-16 17:38 | XMS REPORT ---
Author Author [facility] [employer] Address [address] [place] [address] Care Team Providers Care Sheet Heater Name Role Phone VERENA LANCE Unavailable JOANNA ANDREW MD Unavailable Unavailable VERENA LANCE MD Unavailable Unavailable VERENA LANCE MD Unavailable Unavailable OJHAN LAROSE MD Unavailable Unavailable ALFRED BELL MD Unavailable Unavailable TREVOR MCCABE DO Unavailable Unavailable ALFRED BELL MD Unavailable Unavailable JOSE C WOODSON DOA Jan Unavailable Unavailable NAM MCCLAIN MD Unavailable Unavailable NAM MCCLAIN MD Unavailable Unavailable ANNIE MOY MD Unavailable Unavailable SILAS HAINES MD Unavailable Unavailable VANESSA CARRERA Unavailable Unavailab JANESSA Woods MD Unavailable Unavailable VANNESSA MORRIS Unavailable Unavailable JANESSA ROWAN MD Unavailable Unavailable JANESSA ROWAN MD Unavailable Unavailable ANANDA BLAS MD Unavailable Unavailable ALEENA LANCE MD Unavailable Unavailable AMANDA WOODSON DO Unavailable Unavailable VERENA LANCE MD Unavailable Unavailable TREVOR MCCABE DO Unavailable Unavailable VANESSA CARRERA Unavailable Unavailab JOANNA Piper MD Unavailable Unavailable JOHAN LAROSE MD Unavailable Unavailable SILAS HAINES MD Unavailable Unavailable NAM MCCLAIN MD Unavailable [...] Unavailable Unavailable ALEENA LANCE MD Unavailable Unavailable SEJAL CHAMORRO APRN Unavailable Unavailable NICOLA ODELL MD Unavailable Unavailable WILLIAM GARCIA Unavailable Unavailable Unavailable Unavailable Unavailable Unavailable Unavailable Unavailable Allergies No Information Encounters Encounter Date Encounter Type Encounter Diagnosis Care Provider Facility Start: Emergency department AMANDA K KANDICE DO [facility] Via [facility] 11-16-2019 patient visit [facility] Start: Patient encounter WILLIAM RUBIO [facility] V ia [facility] 09-19-2019 [facility] Start: Emergency department NICOLA ODELL MD [facility] V [facility] 07-28-2019 patient visit [facility] End: 07-28-2019 Start: Patient encounter NICOLA ODELL MD [facility] Via [facility] 07-28-2019 procedure [facility] Start: Patient encounter SEJLA CHAMORRO APRN [facility] 07-21-2019 procedure [facility] Start: Patient encounter VERENA LANCE MD [facility] Via [facility] 07-10-2019 [facility] Start: Evaluation and CARLOS COLUNGA DO [facility] Via [facility] 04-28-2019 management of [facility] inpatient ([id number]) End: 05-01-2019 Start: Patient encounter CARLOS COLUNGA [facility] Via [facility] 04-28-2019 procedure [facility] ([id number]) End: 05-01-2019 Start: Emergency department AMANDA KANDICE DO [facility] Via [facility] 04-28-2019 patient visit [facility] ([id number]) Start: Patient encounter JOHAN LAROSE MD [facility] 03-21-2019 [facility] ([id number]) Start: Patient encounter JOHAN LAROSE MD [facility] Via [facility] is 02-28-2019 [facility] ([id number]) Start: Patient encounter VERENA LANCE MD [facility] Via [facility] 02-21-2019 procedure [facility] ([id number]) Start: Patient encounter VERENA LANCE MD [facility] Via [facility] is 02-12-2019 procedure [facility] ([id number]) Start: Patient encounter VERENA LANCE MD [facility] Via [facility] is 02-12-2019 [facility] ([id number]) Start: Patient encounter VERENA LANCE MD [facility] Via [facility] is 10-07-2018 [facility] ([id number]) Start: Patient encounter VERENA LANCE MD [facility] Via [facility] is 10-07-2018 [facility] ([id number]) Start: Emergency department AMANDA WOODSON DO [facility] Via [facility] 09-29-2018 patient visit [facility] ([id number]) End: 09-29-2018 Start: Emergency department JOANNA ANDREW MD [facility] Via [facility] 09-29-2018 patient visit [facility] ([id number]) End: 09-29-2018 Start: Patient encounter AMANDA WOODSON DO [facility] 09-29-2018 procedure [facility] ([id number]) Start: Patient encounter 06-06-2017 procedure End: 06-06-2017 Start: Patient encounter SILAS HAINES MD [facility] Via [facility] 06-06-2017 procedure [facility] ([id number]) End: 06-06-2017 Start: Patient encounter VANESSA Not Availab le ([id number]) 05-30-2017 procedure [facility] Start: Patient encounter VANESSA Not Availab le ([id number]) 05-25-2017 procedure [facility] Start: Patient encounter VANESSA [facility] Via [facility] is 05-25-2017 procedure [facility] ([id number]) Start: Patient encounter AMANDA WOODSON DO Not Availab le ([id number]) 11-05-2016 procedure Start: Emergency department AMANDA WOODSON DO [facility] Via [facility] 11-05-2016 patient visit [facility] ([id number]) End: 11-05-2016 Start: Patient encounter JOHAN LAROSE MD Not Availab le ([id number]) 10-31-2016 procedure End: 11-02-2016 Start: Patient encounter JOHAN LAROSE MD [facility] Via [facility] 10-31-2016 procedure [facility] ([id number]) End: 11-02-2016 Start: Patient encounter JOHAN LAROSE MD [facility] 10-24-2016 procedure [facility] ([id number]) End: 10-24-2016 Start: Patient encounter JOHAN LARSOE MD [facility] 09-28-2016 procedure [facility] ([id number]) Start: Patient encounter TREVOR MCCABE DO Not Avai lable ([id number]) 08-25-2016 procedure Start: Emergency department TREVOR MCCABE DO [facility] V [facility] 08-25-2016 patient visit [facility] ([id number]) End: 08-25-2016 Start: Patient encounter ALFRED BELL MD Not Avail able ([id number]) 07-24-2016 procedure End: 07-26-2016 Start: Evaluation and ALFRED BELL MD [facility] 07-24-2016 management of [facility] inpatient ([id number]) End: 07-26-2016 Start: Emergency department AMANDA WOODSON Not Avai lable ([id number]) 07-24-2016 patient visit Start: Patient encounter SILAS HAINES MD Not Availa ble ([id number]) 06-14-2016 procedure End: 06-15-2016 Start: Patient encounter SILAS HAINES MD [facility] 06-14-2016 procedure [facility] ([id number]) End: 06-15-2016 Start: Patient encounter SILAS HAINES MD Not Availa ble ([id number]) 05-16-2016 procedure Start: Emergency department JOANNA ANDREW MD [facility] 04-27-2016 patient visit [facility] ([id number]) End: 04-28-2016 Start: Emergency department JANESSA SMITH MD [facility] 04-08-2016 patient visit [facility] ([id number]) End: 04-08-2016 Start: Emergency department JOANNA ANDREW MD [facility] 04-07-2016 patient visit [facility] ([id number]) End: 04-07-2016 Start: Patient encounter SILAS HAINES MD Not Availa ble ([id number]) 03-22-2016 procedure End: 03-23-2016 Start: Patient encounter SILAS HAINES MD [facility] 03-22-2016 procedure [facility] ([id number]) End: 03-23-2016 Start: Patient encounter SILAS HAINES MD [facility] 03-13-2016 procedure [facility] ([id number]) Start: Patient encounter SILAS HAINES MD [facility] 03-09-2016 procedure [facility] ([id number]) Start: Emergency department VANNESSA MORRIS [facility] 03-04-2016 patient visit [facility] ([id number]) End: 03-04-2016 Start: Emergency department ALEENA LANCE MD [facility] 02-24-2016 patient visit [facility] ([id number]) End: 02-24-2016 Start: Evaluation and JANESSA ROWAN MD [facility] 02-19-2016 management of [facility] inpatient ([id number]) End: 02-22-2016 Start: Evaluation and VERENA LANCE MD [facility] 12-03-2015 management of [facility] inpatient ([id number]) End: 12-08-2015 Start: Evaluation and NAM MCCLAIN MD [facility] 06-03-2015 management of [facility] inpatient ([id number]) End: 06-11-2015 Start: Evaluation and VERENA LANCE MD [facility] 05-31-2015 management of [facility] inpatient ([id number]) End: 06-03-2015 Start: Patient encounter VANESSA Not Availab le ([id number]) 11-19-2014 procedure [facility] Start: Patient encounter VANESSA [facility] is 11-19-2014 procedure [facility] ([id number]) Start: Emergency department AMANDA KANDICE DO Not Avai lable ([id number]) 09-13-2013 patient visit End: 09-13-2013 Start: Evaluation and VERENA LANCE MD Not Available ([id number]) 07-11-2013 management of inpatient End: 07-14-2013 Start: Evaluation and VERENA LANCE MD [facility] 07-11-2013 management of [facility] ([id number]) End: 07-14-2013 Start: Evaluation and VERENA LANCE MD Not Available ([id number]) 04-24-2012 management of inpatient End: 04-28-2012 Start: Patient encounter ANNIE MOY MD Not Avail able ([id number]) 01-29-2012 procedure End: 01-29-2012 Start: Patient encounter ANNIE MOY MD Not Avail able ([id number]) 01-26-2012 procedure Start: Patient encounter VERENA LANCE MD Not Availab le ([id number]) 08-23-2011 procedure Start: Evaluation and VERENA LANCE MD Not Available ([id number]) 08-20-2011 management of inpatient End: 08-21-2011 Start: Patient encounter VERENA LANCE MD Not Availab le ([id number]) 08-16-2011 procedure Start: Emergency department AMANDA KANDICE DO Not Avai lable ([id number]) 07-21-2011 patient visit End: 07-22-2011 Start: Emergency department JOANNA ANDREW MD Not Available ([id number]) 01-09-2010 patient visit End: 01-09-2010 Start: Emergency department PERLA LOWERY MD Not Av ailable ([id number]) 12-08-2009 patient visit End: 12-08-2009 Start: Patient encounter MONCHO BOTELLO MD Not Avail able ([id number]) 06-23-2009 procedure End: 06-24-2009 Start: Patient encounter VERENA LANCE MD Not Availab le ([id number]) 03-30-2009 procedure Start: Patient encounter MONCHO BOTELLO MD Not Avail able ([id number]) 12-10-2008 procedure End: 12-11-2008 Start: Patient encounter SILAS HAINES MD Not Availa ble ([id number]) 05-13-2008 procedure Start: Patient encounter MONCHO BOTELLO MD Not Avail able ([id number]) 10-10-2007 procedure End: 10-11-2007 Start: Patient encounter VERENA LANCE MD Not Availab le ([id number]) 02-13-2006 procedure Start: Patient encounter VERENA LANCE MD Not Availab le ([id number]) 09-29-2005 procedure Start: Patient encounter MONCHO BOTELLO MD Not Avail able ([id number]) 09-28-2005 procedure ENCOUNTER FOR OTHER Encounter for other JOHAN LAROSE MD [facility] V [facility][id number]) ENCOUNTER FOR PREPROCEDURAL CARDIOVASCUL ENCOUNTER FOR PREPROCEDURAL LABORATORY E ENCOUNTER FOR PREPROCEDURAL RESPIRATORY EXAM PRE-OPERATIVE Pre-operative NOS examination, unspecified Medical Equipment No Information Goals No Information Immunizations The data below is from unstructured sourcesNo immunization records.No immunization records.No immunization records. Interventions No Information Medications No Information Payers No Information Plan of Treatment The data below is from unstructured sources Discharge Date 12/08/15 10:30am Disposition 06 HOME HEALTH SERVICE Instructions/Education Provided Urin endy Tract Infection in Men (GEN) Forms Provided PDI Medical Prescriptions See Medication Section Referrals VERENA LANCE MD (Unspecif ied) - 12/15/15 Address: [address] [place] [address] [phone] Reason(s) for Referral: 2:00PM (Physical Medicine and Rehab) - Reason(s) for Referral: Home Health (Physical Medicine and Rehab) - Care Plan and Goals See Discharge In structions Section Discharge Date 04/28/16 7:19am Disposition 01 HOME, [...] or other concerns as needed. Discharge Date 06/11/15 9:45am Disposition 01 HOME, SELF-CARE Instructions/Education Provided Urin endy Tract Infection in Men (DC) Chronic Obstructive Pulmonary Disease (DC) Sepsis (DC) Community-acquired Pneumonia (DC) Forms Provided PDI Medical Rehab Team Conference Summary Prescriptions See Medication Section Referrals LAZ MCKEON DO (Unspeci fied) - Address: [address] [place] [address] [phone] Reason(s) for Referral: F/U with Dr. Mckeon on 07/05/15, at 10:00 AM. (Unspecified) - Reason(s) for Referral: Follow Up with Dr Lance on at 1:45pm Additional Instructions/Education FO LLOW UP APPOINTMENT WITH DR MCKEON ON 2015 AT 10 AM. OFFICE NUMBER [phone]. DR MCKEON'S OFFICE IS LOCATED AT [address] [place] [address]. Monitor your blood sugar as you did before you came to the hospital. Care Plan and Goals Discharge Date 06/11/15 9:45am Disposition 09 ADMITTED INPATIENT Instructions/Education Provided Urin endy Tract Infection in Men (DC) Chronic Obstructive Pulmonary Disease (DC) Sepsis (DC) Community-acquired Pneumonia (DC) Forms Provided PDI Medical Rehab Team Conference Summary Prescriptions See Medication Section Referrals LAZ MCKEON DO (Unspeci fied) - Address: [address] [place] [address] [phone] Reason(s) for Referral: F/U with Dr. Mckeon on 07/05/15, at 10:00 AM. (Unspecified) - Reason(s) for Referral: Follow Up with Dr Lance on at 1:45pm Additional Instructions/Education FO LLOW UP APPOINTMENT WITH DR MCKEON ON 2015 AT 10 AM. OFFICE NUMBER [phone]. DR MCKEON'S OFFICE IS LOCATED AT [address] [place] [address]. Monitor your blood sugar as you did before you came to the hospital. Care Plan and Goals Discharge Date 06/03/15 11:56am Disposition 01 HOME, SELF-CARE Instructions/Education Provided Comm unity-acquired Pneumonia (DC) Prescriptions See Medication Section Problems Active Problems Problem Problem Date Last Documented Episodic/Chr Provider Classificati Recorded Date onic on Acute Acute bronchitis, unspecified Episodic JANESSA ROWAN bronchitis (16 sources) Allergic Allergy status to other drugs, Episodic AMANDA KANDICE DO reactions medicaments and biological (8 sources) substances status ; Transla tions: [ALLERGY STATUS TO PENICILLIN] Anxiety Anxiety state, unspecified ; Chronic VERENA CASI disorders Translations: [Anxiety disorder, (12 sources) unspecified] Conduction Atrioventricular block, first Chronic ALEENA LANCE disorders degree ; Translations: [Unspecified (24 sources) right bundle-branch block] Congestive Heart failure, unspecified ; Chronic AMANDA KANDICE DO heart Translations: [Congestive h eart failure; failure, unspecified] nonhypertens bro (16 sources) 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 without sis and angina pectoris ; Translati ons: other heart [Coronary atherosclerosis o f [place] disease coronary artery] (28 sources) Coronary Presence of coronary angioplasty Episodic ALFRED atherosclero implant and graft ; Translations: O DGERS sis and [ATHSCL HEART DISEASE OF NA TIVE other heart CORONARY ] disease (31 sources) Delirium, Unspecified dementia without Chronic AMANDA KANDICE DO dementia, behavioral disturbance and amnestic and other cognitive disorders (19 sources) Diabetes Type 2 diabetes mellitus with Chronic VERENA LANCE mellitus diabetic neuropathy, unspecified ; MD with Translations: [Diabetes ernie litus complication without mention of complica tion, s type II or unspecified type , (23 sources) uncontrolled] Diabetes Type 2 diabetes mellitus without Chronic VERENA LANCE mellitus complications ; Translations: without [Diabetes mellitus without mention complication of complication, type II or (20 sources) unspecified type, not state d as uncontrolled] Diseases of Leukocytosis, unspecified Chronic THEA LANCE white blood MD cells (7 sources) Disorders of Mixed hyperlipidemia ; Chronic VERENA LANCE lipid Translations: [Hyperlipidemia, metabolism unspecified] (23 sources) Diverticulos Diverticulosis of colon (without Chronic ANNIE is and mention of hemorrhage) ; CHINMAY UP diverticulit Translations: [Diverticulos is of is large intestine without per foration (9 sources) or abscess without bleeding ] E Codes: Unspecified fall, initial encounter Episodic AMANDA KANDICE DO Fall (6 sources) Esophageal Gastro-esophageal reflux disease Chronic ALFRED disorders without esophagitis ; Translations: RAY UP (23 sources) [Esophageal reflux] Genitourinar Presence of urogenital implants ; Chronic NAM MCCLAIN y symptoms Translations: [Unspecified urinary MD and incontinence] ill-defined conditions (17 sources) Genitourinar Other retention of urine ; Episodic W ILLIAM y symptoms Translations: [Hematuria, ELIOT DO and unspecified] ill-defined conditions (24 sources) Heart valve Mitral valve disorders Chronic VERENA LANCE disorders (5 sources) Hyperplasia Benign prostatic hyperplasia with Chronic JOHAN LACHELLE of prostate lower urinary tract symptoms ; (23 sources) Translations: [Benign prost atic hyperplasia without lower urinary tract symptoms] Hypertension Hypertensive chronic kidney Chronic VERENA LANCE with disease, unspecified, with chronic MD complication kidney disease stage I thro ugh s and stage IV, or unspecified ; secondary Translations: [Hypertensive chronic hypertension kidney disease with stage 1 through (25 sources) stage 4 chronic kidney dise ase, or unspecified chronic kidney disease] Mood Major depressive disorder, single Chronic VERENA LANCE disorders episode, unspecified ; (21 sources) Translations: [Depressive d isorder, not elsewhere classified] Nonmalignant Hypertrophy of breast Episodic VERENA HUNG breast conditions (4 sources) Occlusion or Occlusion and stenosis of carotid Ch ronic stenosis of artery without mention of c erebral precerebral infarction ; Translations: [CAROTID arteries ARTERY OCCLUSION W O CEREBR AL IN] (17 sources) Osteoarthrit Unspecified osteoarthritis, Chronic JANESSA ANUM is unspecified site ; Translations: (18 sources) [Primary osteoarthritis, unspecified site] Other longterm (current) use of insulin Episodic JOANNA aftercare KAMRAN UP (22 sources) Other Other skilled nursing (current) drug Episodic JOANNA aftercare therapy KAMRAN UP (22 sources) Other painter spray (current) use of systemic Episodic AMANDA KANDICE DO aftercare steroids (4 sources) Other and Cardiomegaly Chronic JOANNA ill-defined KAMRAN UP heart disease (9 sources) Other and Cardiomegaly Chronic VERENA LANCE ill-defined heart disease (5 sources) Other bone Other specified disorders of bone, Episodic VERENA LANCE disease and unspecified site MD musculoskele claudette deformities (4 sources) Other Neuromuscular dysfunction of Chronic JOHAN LACHELLE diseases of bladder, unspecified MD bladder and urethra (20 sources) Other Other specified disorders of Chronic JOHAN LACHELLE diseases of bladder MD bladder and urethra (4 sources) Other Other disorders resulting from Chronic VERENA LANCE diseases of impaired renal tubular function MD kidney and ureters (11 sources) Other Unspecified hydronephrosis Episodic E LIAS LACHELLE diseases of MD kidney and ureters (18 sources) Other Irritable bowel syndrome Chronic SHIV LANCE gastrointest MD inal disorders (11 sources) Other Personal history of other diseases Episodic AMANDA KANDICE DO gastrointest of the digestive system inal disorders (4 sources) Other Mild cognitive impairment, so Chronic NAM MCCLAIN hereditary stated MD and degenerative nervous system conditions (8 sources) Other Personal history of (healed) Episodic VERENA LANCE injuries and traumatic fracture MD conditions due to external causes (2 sources) Other liver Other chronic nonalcoholic liver Chronic VERENA LANCE diseases disease MD (12 sources) Other liver Fatty (change of) liver, not Chronic VERENA LANCE diseases elsewhere classified MD (4 sources) Other lower Pulmonary fibrosis, unspecified Chronic ALEENA LANCE respiratory MD disease (7 sources) Other lower Shortness of breath Episodic VANNESSA ALEXANDRA respiratory disease (20 sources) Other lower Personal history of pneumonia Episodic AMANDA KANDICE DO respiratory (recurrent) disease (7 sources) Other lower Pleurodynia 09-22-2019 Episodic WILLIAM respiratory LOLA RUBIO disease (3 sources) Other Other chronic pain Chronic CARLOS GAR NER nervous DO system disorders (4 sources) Other Body Mass Index 36.0-36.9, adult Chronic VERENA LANCE nutritional; endocrine; and metabolic disorders (6 sources) Other Morbid obesity Chronic VERENA mcnally; endocrine; and metabolic disorders (7 sources) Other Body mass index (BMI) 34.0-34.9, Chronic VERENA LANCE nutritional; adult endocrine; and metabolic disorders (10 sources) Other Hypomagnesemia Chronic VERENA LANCE nutritional; endocrine; and metabolic disorders (11 sources) Other Morbid (severe) obesity due to Chronic VERENA CASI nutritional; excess calories MD endocrine; and metabolic disorders (11 sources) Other Body Mass Index 40.0-44.9, adult Chronic VERENA CASI nutritional; endocrine; and metabolic disorders (5 sources) Other Obesity, unspecified Chronic VERENA ELY nutritional; MD endocrine; and metabolic disorders (5 sources) Other Body mass index (BMI) 38.0-38.9, Chronic CARLOS COLUNGA nutritional; adult DO endocrine; and metabolic disorders (4 sources) Other Obesity, unspecified Chronic CARLOS G ARNER nutritional; DO endocrine; and metabolic disorders (4 sources) Other upper Other seasonal allergic rhinitis Chronic JANESSA ANUM respiratory MD disease (7 sources) Residual Obstructive sleep apnea (adult) Chronic BASJAN KATHERINE codes; (pediatric) unclassified (28 sources) Residual Obstructive sleep apnea Chronic ANNA AEJey codes; (adult)(pediatric) AYAN UP unclassified (18 sources) Residual Sleep apnea, unspecified ; Chronic J OHN CASI codes; Translations: [BODY MASS INDEX MD unclassified (BMI) 34.0-34.9, ADULT] (27 sources) Residual Acquired absence of other genital Episodic AMANDA KANDICE DO codes; organ(s) unclassified (10 sources) Residual Family history of ischemic heart Episodic AMANDA KANDICE DO codes; disease and other diseases of the unclassified circulatory system (4 sources) Residual Other specified postprocedural Episodic AMANDA KANDICE DO codes; states unclassified (4 sources) Residual Patient's noncompliance with other Episodic AMANDA KANDICE DO codes; medical treatment and regim en unclassified (4 sources) Residual Acquired absence of other specified Episodic VERENA LANCE codes; parts of digestive tract unclassified (4 sources) Respiratory Chronic respiratory failure ; Chronic VERENA LANCE failure; Translations: [Chronic respiratory MD insufficienc failure with hypoxia] y; arrest (adult) (25 sources) Screening Personal history of tobacco use ; Episodic VERENA CASI and history Translations: [Personal history of MD of mental nicotine dependence] health and substance abuse codes (21 sources) Substance-re Nicotine dependence, cigarettes, Chronic JOANNA lated uncomplicated ; Translations: DOROTA INS MD disorders [Nicotine dependence, unspe cified, (24 sources) uncomplicated] Thyroid Nontoxic single thyroid nodule Chronic VERENA LANCE disorders (7 sources) Past or Other Problems Problem Problem Date Last Documented Episodic/Chr Provider Classificati Recorded Date onic on Abdominal Abdominal pain, right upper Episodic AMANDA KANDICE DO pain quadrant (12 sources) Cardiac Tachycardia, unspecified Episodic SHIV LANCE dysrhythmias (7 sources) E Codes: Unspecified accident Episodic JOANNA Natural/envi KAMRAN johnston (2 sources) E Codes: Other external cause status Episodic JOANNA Unspecified KAMRAN UP (2 sources) Immunization Encounter for screening for other Episodic JOHAN LACHELLE s and bacterial diseases screening for infectious disease (7 sources) Noninfectiou Other and unspecified noninfectious Episodic VERENA LANCE s gastroenteritis and colitis gastroenteri tis (5 sources) Nutritional Cachexia Episodic JANESSA ROWAN deficiencies (7 sources) Open wounds Open wound of toe(s), without Episodic JOANNA of mention of complication KAMRAN UP extremities (2 sources) Other longterm (current) use of aspirin Episodic JOANNA aftermatt ANDREW MD (26 sources) Other Long-term (current) use of insulin Episodic VERENA dove MD (7 sources) Other Long-term (current) use of other Episodic PERLA aftercare medications SEBASTIÁN UP (10 sources) Other Long-term (current) use of aspirin Episodic PERLA aftermatt LOWERY MD (4 sources) Other Rhabdomyolysis Episodic VERENA LANCE connective MD tissue disease (11 sources) Other Swelling of limb Episodic VERENA LANCE connective tissue disease (5 sources) Other Disorder of kidney and ureter, Episodic VERENA LANCE diseases of unspecified MD kidney and ureters (15 sources) Other Fracture of one rib, left side, Episodic ALEENA CASI fractures subsequent encounter for fracture 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 sources) with nonunion Other Diarrhea, unspecified Episodic JANESSA MERIDA gastrointaretha UP inal disorders (7 sources) Other Other constipation Episodic JANESSA RED gastrogenesis UP inal disorders (7 sources) Other Diarrhea Episodic VERENA LANCE gastrogenesis UP inal disorders (5 sources) Other Erythema intertrigo Episodic VERENA DIAZ inflammatory condition of skin (11 sources) Other Systemic inflammatory response Episodic VERENA LANCE injuries and syndrome, unspecified MD conditions due to external causes (7 sources) Other History of falling Episodic ALFRED injuries and ODGERS MD conditions due to external causes (12 sources) Other lower Hypoxemia Episodic VERENA LANCE respiratory disease (7 sources) Other lower Painful respiration Episodic JOANNA respiratory KAMRAN disease (6 sources) Other lower Hypoxemia Episodic JANESSA ROWAN respiratory disease (7 sources) Other Special screening for malignant Episodic ANNIE screening neoplasms of colon ; Translations: CHINMAY UP for [Abnormal result of other suspected cardiovascular function harry dy] conditions (not mental disorders or infectious disease) (18 sources) Residual Altered mental status ; Episodic VERENA LANCE codes; Translations: [BODY MASS INDEX MD unclassified 36.0-36.9, ADULT] (7 sources) Residual Localized edema ; Translations: Episodic AMANDA KANDICE DO codes; [ACQUIRED ABSENCE OF OTHER GENITAL unclassified ORGAN(] (8 sources) Residual Edema Episodic AMANDA KANDICE DO codes; unclassified (17 sources) Septicemia Sepsis ; Translations: [Sepsis, Episodic VERNEA LANCE (except in unspecified organism] MD labor) (26 sources) Spondylosis; Dorsalgia, unspecified Episodic CARLOS COLUNGA intervertebr DO al disc disorders; other back problems (7 sources) Unclassified MONCHO (2 sources) AYAN UP Unclassified MONCHO (1 source) AYAN UP Unclassified 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 vehicle Unclassified MONCHO (3 sources) AYAN Heified SILAS HAINES (2 sources) Unclassemir LANCE (4 sources) Unclassemir LANCE (1 source) Unclassemir LANCE (1 source) Procedures The data below is from unstructured sources Procedure Status Date Provider(s) X-ray of chest, single view Active 07/24/16 WILLIAM DAVILA X-ray of chest, single view Active 07/25/16 ALFRED BELL MD Results Test Name Value Interpreta Reference Facilit Date tion Range y Time laboratory on 2019-11-16 Albumin [Mass/Vol] 3.5 g/dL Negative 3.2-4.5 PENDING 11-04 2-2 g/dL [facility] 12:21-0 ([id number]) 400 ALP [Catalytic 88 U/L Negative 40-136 U/L PENDING 11-15- activity/Vol] [facility] 12:21-0 ([id number]) 400 ALT [Catalytic 18 U/L Negative 0-55 U/L PENDING activity/Vol] [facility] N S 12:21-0 ([id number]) 400 Anion gap 12 mmol/L Negative 5-14 PENDING 11-15-2 [Moles/Vol] mmol/L [facility] N S 12:21-0 ([id number]) 400 AST [Catalytic 19 U/L Negative 5-34 U/L PENDING activity/Vol] [facility] 12:21-0 ([id number]) 400 Bacteria LM Ql LARGE Abnormal PENDING (Urine sed) [facility] 11:41-0 ([id number]) 400 Basophils (Bld) 0.0 10*3/uL Negative 0.0-0.1 PENDING 11-15 [#/Vol] 10*3/uL [facility] 11:39-0 ([id number]) 400 Basophils/100 WBC 0 % Negative 0-10 % PENDING 11-15 (Bld) [facility] 11:39-0 ([id number]) 400 Bilirubin [Mass/Vol] 0.7 mg/dL Negative 0.1-1.0 PENDING - mg/dL [facility] 12:21-0 ([id number]) 400 Bilirubin Ql (U) Negative Invalid NEGATIVE PENDING Interpreta [facility] 020 tion Code N [facility] 11:41-0 ([id number]) 400 Calcium [Mass/Vol] 8.8 mg/dL Negative 8.5-10.1 PENDING 07-1 2-2 mg/dL [facility] N [facility] 12:21-0 ([id number]) 400 Calcium [Mass/Vol] 9.2 mg/dL Negative 8.5-10.1 PENDING 07-1 2-2 mg/dL [facility] N [facility] 12:21-0 ([id number]) 400 Casts LM Ql (Urine NONE Invalid PENDING sed) Interpreta [facility] 020 tion Code N [facility] 11:41-0 ([id number]) 400 Chloride [Moles/Vol] 98 mmol/L Negative 98-107 PENDING -2 mmol/L [facility] N [facility] 12:21-0 ([id number]) 400 Clarity (U) CLOUDY Invalid PENDING Interpreta [facility]20 tion Code N [facility] 11:41-0 ([id number]) 400 CO2 [Moles/Vol] 25 mmol/L Negative 21-32 PENDING mmol/L [facility]20 N [facility] 12:21-0 ([id number]) 400 Color (U) YELLOW Invalid PENDING Interpreta [facility] 020 tion Code N [facility] 11:41-0 (04515) 400 Creatinine 1.95 mg/dL High 0.60-1.30 PENDING [Mass/Vol] mg/dL [facility] N [facility] 12:21-0 ([id number]) 400 Creatinine and 34 Invalid PENDING Glomerular Interpreta [facility] 020 filtration tion Code N [facility] 12:21-0 rate.predicted panel ([id number]) 400 - Serum, Plasma or Blood Crystals LM Ql NONE Invalid PENDING (Urine sed) Interpreta [facility] 020 tion Code N [facility] 11:41-0 ([id number]) 400 Eosinophils (Bld) 0.3 10*3/uL Negative 0.0-0.3 PENDING 04-07 [#/Vol] 10*3/uL [facility] N [facility] 11:39-0 ([id number]) 400 Eosinophils/100 WBC 4 % Negative 0-10 % PENDING 04-07 (Bld) [facility] N [facility] 11:39-0 ([id number]) 400 Epithelial RARE Invalid PENDING cells.squamous LM Ql Interpreta [facility] 020 (Urine sed) tion Code N [facility] 11:41-0 ([id number]) 400 Erythrocyte 14.8 % High 10.0-14.5 PENDING distribution width % [facility] (RBC) [Ratio] N [facility] 11:39-0 ([id number]) 400 Glucose [Mass/Vol] 146 mg/dL High 70-105 PENDING - 2-2 mg/dL [facility] N [facility] 12:21-0 ([id number]) 400 Glucose Auto test Negative Invalid NEGATIVE PENDING 11-15 strip Ql (U) Interpreta [facility] 020 tion Code N [facility] 11:41-0 ([id number]) 400 Hematocrit (Bld) 45 % Negative 40-54 % PENDING [Volume fraction] [facility] 11:39-0 ([id number]) 400 Hemoglobin (Bld) 14.7 g/dL Negative 13.3-17.7 PENDING [Mass/Vol] g/dL [facility] 11:39-0 ([id number]) 400 Ketones Auto test Negative Invalid NEGATIVE PENDING 11-15 strip Ql (U) Interpreta [facility] 020 tion Code [facility] 11:41-0 ([id number]) 400 Lactate [Moles/Vol] 1.61 mmol/L Negative 0.50-2.00 PENDING 0 mmol/L [facility] 11:39-0 ([id number]) 400 Leukocyte esterase 3+ Abnormal NEGATIVE PENDING 11-04 Test strip [facility]l (U) [facility] 11:41-0 ([id number]) 400 Lymphocytes (Bld) 1.2 10*3/uL Negative 1.0-4.0 PENDING 04-07 [#/Vol] 10*[address] 11:39-0 ([id number]) 400 Lymphocytes/100 WBC 14 % Negative 12-44 % PENDING 04-07 (Bld) [facility] 11:39-0 ([id number]) 400 MCH (RBC) [Entitic 29 pg Negative 25-34 pg PENDING 11-04 2-2 mass] [facility] 11:39-0 ([id number]) 400 MCHC (RBC) 33 g/dL Negative 32-36 g/dL PENDING [Mass/Vol] [facility] 11:39-0 ([id number]) 400 MCV (RBC) [Entitic 89 Negative 80-99 PENDING 11-04 2-2 vol] [foz_us] [facility] 11:39-0 ([id number]) 400 Monocytes (Bld) 0.9 10*3/uL Negative 0.0-1.0 PENDING 11-15 [#/Vol] 10*[address] [place] [address] 11:39-0 ([id number]) 400 Monocytes/100 WBC 10 % Negative 0-12 % PENDING 11-15 (Bld) [facility] 11:39-0 ([id number]) 400 Mucus Ql (Urine sed) Negative Invalid PENDING 11-15 Interpreta [facility] 020 tion Code N [facility] 11:41-0 ([id number]) 400 Neutrophils (Bld) 6.3 10*3/uL Negative 1.8-7.8 PENDING 04-07 [#/Vol] 10*3 [facility] 11:39-0 ([id number]) 400 Neutrophils/100 WBC 72 % Negative 42-75 % PENDING 04-07 (Bld) [facility] 11:39-0 ([id number]) 400 Nitrite Ql (U) Negative Invalid NEGATIVE PENDING Interpreta [facility] 020 tion Code [facility] 11:41-0 ([id number]) 400 pH (U) 6.0 [pH] Invalid 5-9 PENDING Interpreta [facility] 020 tion Code N [facility] 11:41-0 ([id number]) 400 Platelet mean volume 11.6 High 7.4-10.4 PENDING (Bld) [Entitic vol] [foz_us] [facility] 11:39-0 ([id number]) 400 Platelets (Bld) 154 10*3/uL Negative 130-400 PENDING 11-15 [#/Vol] 10*3/uL [facility] 11:39-0 ([id number]) 400 Potassium 4.8 mmol/L Negative 3.6-5.0 PENDING [Moles/Vol] mmol/L [facility] 12:21-0 ([id number]) 400 Protein [Mass/Vol] 6.9 g/dL Negative 6.4-8.2 PENDING - 2-2 g/dL [facility] 12:21-0 ([id number]) 400 Protein Ql (U) TRACE Abnormal NEGATIVE PENDING [facility] 11:41-0 ([id number]) 400 RBC (Bld) [#/Vol] 5.00 10*6/uL Negative 4.35-5.85 PENDING 10*6/uL [facility] 11:39-0 ([id number]) 400 RBC LM.HPF (Urine Invalid [HPF] PENDING sed) [#/Area] Interpreta [facility] 020 tion Code N [facility] 11:41-0 ([id number]) 400 RBC Ql (U) TRACE-I Invalid NEGATIVE PENDING Interpreta [facility] 020 tion Code N [facility] 11:41-0 ([id number]) 400 Sodium [Moles/Vol] 135 mmol/L Negative 135-145 PENDING 04-07 mmol/L [facility]20 N [facility] 12:21-0 (04839) 400 Specific gravity (U) 1.015 Low 1.016-1.02 PENDING 0 [Rel density] 2 [facility] 11:41-0 (02487) 400 Urea nitrogen 23 mg/dL High 7-18 mg/dL PENDING [Mass/Vol] [facility] 12:21-0 ([id number]) 400 Urea 12 mg/mg Invalid PENDING nitrogen/Creatinine Interpreta [facility] 0[facility] [Mass ratio] tion Code N [facility] 12:21-0 ([id number]) 400 Urobilinogen (U) 0.2 mg/dL Invalid < = 1.0 PENDING [Mass/Vol] Interpreta mg/dL [facility] tion Code [facility] 11:41-0 ([id number]) 400 WBC (Bld) [#/Vol] 8.7 10*3/uL Negative 4.3-11.0 PENDING 04-07 10*3/uL [facility]20 N [facility] 11:39-0 ([id number]) 400 WBC LM.HPF (Urine Abnormal [HPF] PENDING sed) [#/Area] [facility] 11:41-0 ([id number]) 400 Social History No Information Vital Signs The data below is from unstructured sources Vital Response Date/Time Temperature (Fahrenheit) 100.3 degre es F (97.6 - 99.5) 03/20/2016 2:17pm Temperature (Calculated Celsius) 37. 96674 degrees C (36.4 - 37.5) 03/20/2016 2:17pm [...] inches 03/20/2016 2:17pm Height (Calculated Centimeters) 175. 459636 cm 03/20/2016 2:17pm Weight (Pounds) 249 pounds 03/20/2016 2:17pm Weight (Ounces) 0.0 oz 1 05/13/2015 8:26am Weight (Calculated Grams) 010743.50 gm 03/13/2016 8:26am Weight (Calculated Kilograms) 112.94 4501 kilograms 03/20/2016 2:17pm Calculated BMI 36.8 11/2015 8:26am Capillary Refill Capillary Refill Less Than 3 Seconds 03/20/2016 2:17pm Vital Response Date/Time Temperature (Fahrenheit) 97.7 degree s F (97.6 - 99.5) 03/23/2016 8:06am Temperature (Calculated Celsius) 36. 64528 degrees C (36.4 - 37.5) 03/23/2016 8:06am [...] inches 03/22/2016 1:06pm Height (Calculated Centimeters) 175. 953022 cm 03/22/2016 1:06pm Weight (Pounds) 240 pounds 03/22/2016 1:06pm Weight (Ounces) 0.0 oz 1 05/22/2015 1:06pm Weight (Calculated Grams) 154794.17 gm 03/22/2016 1:06pm Weight (Calculated Kilograms) 108.86 2170 kilograms 03/22/2016 1:06pm Calculated BMI 35.4 03/07 1:06pm Capillary Refill Capillary Refill Less Than 3 Seconds 03/22/2016 7:00pm Vital Response Date/Time Temperature (Fahrenheit) 98.1 degree s F (97.6 - 99.5) 04/07/2016 8:57pm Temperature (Calculated Celsius) 36. 33041 degrees C (36.4 - 37.5) 04/07/2016 8:57pm [...] inches 04/07/2016 8:57pm Height (Calculated Centimeters) 175. 119619 cm 04/07/2016 8:57pm Weight (Pounds) 240 pounds 04/07/2016 8:57pm Weight (Ounces) 0.0 oz 1 05/22/2015 1:06pm Weight (Calculated Grams) 433124.17 gm 03/22/2016 1:06pm Weight (Calculated Kilograms) 108.86 2170 kilograms 04/07/2016 8:57pm Calculated BMI 35.4 03/07 1:06pm Capillary Refill Capillary Refill Less Than 3 Seconds 04/07/2016 8:57pm Vital Response Date/Time Temperature (Fahrenheit) 98.5 degree s F (97.6 - 99.5) 04/08/2016 6:21pm Temperature (Calculated Celsius) 36. 99868 degrees C (36.4 - 37.5) 04/08/2016 6:21pm [...] inches 04/08/2016 4:00pm Height (Calculated Centimeters) 175. 393258 cm 04/08/2016 4:00pm Weight (Pounds) 240 pounds 04/08/2016 4:00pm Weight (Ounces) 0.0 oz 1 05/22/2015 1:06pm Weight (Calculated Grams) 506133.17 gm 03/22/2016 1:06pm Weight (Calculated Kilograms) 108.86 2170 kilograms 04/08/2016 4:00pm Calculated BMI 35.4 03/07 1:06pm Capillary Refill Capillary Refill Less Than 3 Seconds 04/08/2016 4:00pm Vital Response Date/Time Temperature (Fahrenheit) 97.9 degree s F (97.6 - 99.5) 04/28/2016 4:27am Temperature (Calculated Celsius) 36. 03470 degrees C (36.4 - 37.5) 04/28/2016 4:27am [...] inches 04/28/2016 4:27am Height (Calculated Centimeters) 175. 551626 cm 04/28/2016 4:27am Weight (Pounds) 240 pounds 04/28/2016 4:27am Weight (Ounces) 0.0 oz 1 06/29/2015 4:27am Weight (Calculated Grams) 826118.170 gm 04/28/2016 4:27am Weight (Calculated Kilograms) 108.86 2170 kilograms 04/28/2016 4:27am Calculated BMI 35.4 04/07 4:27am Capillary Refill Capillary Refill Less Than 3 Seconds 04/28/2016 4:27am Vital Response Date/Time Temperature (Fahrenheit) 97.2 degree s F (97.6 - 99.5) 07/26/2016 12:00pm Temperature (Calculated Celsius) 36. 22744 degrees C (36.4 - 37.5) 07/26/2016 12:00pm [...] inches 07/24/2016 11:06pm Height (Calculated Centimeters) 172. 301861 cm 07/24/2016 11:06pm Weight (Pounds) 256 pounds 07/24/2016 11:06pm Weight (Ounces) 9.0 oz 0 07/24/2016 11:06pm Weight (Calculated Grams) 823440.79 gm 07/24/2016 11:06pm Weight (Calculated Kilograms) 116.37 4794 kilograms 07/24/2016 11:06pm Calculated BMI 39.0 07/06 11:06pm Capillary Refill Capillary Refill Less Than 3 Seconds 07/26/2016 8:30am Vital Response Date/Time Temperature (Fahrenheit) 97.1 degree s F (97.6 - 99.5) 08/25/2016 6:51pm Temperature (Calculated Celsius) 36. 29395 degrees C (36.4 - 37.5) 08/25/2016 6:51pm [...] inches 08/25/2016 6:51pm Height (Calculated Centimeters) 172. 600398 cm 08/25/2016 6:51pm Weight (Pounds) 256 pounds 08/25/2016 6:51pm Weight (Ounces) 9.0 oz 0 08/25/2016 6:51pm Weight (Calculated Grams) 370776.794 gm 08/25/2016 6:51pm Weight (Calculated Kilograms) 116.37 4794 kilograms 08/25/2016 6:51pm Calculated BMI 39.0 08/06 6:51pm Capillary Refill Capillary Refill Less Than 3 Seconds 08/25/2016 6:51pm Vital Response Date/Time Temperature (Fahrenheit) 97.0 degree s F (97.6 - 99.5) Temperature (Calculated Celsius) 36. 79919 degrees C (36.4 - 37.5) Temperature Source Temporal Pulse Rate (adult) 85 bpm (60 - 90) Respiratory Rate 22 bpm (12 - 24) O2 Sat by Pulse Oximetry 96 % (88 - 100) Blood Pressure 165/111 mm Hg Pain Pain Intensity 0 Height (Feet) 5 feet Height (Inches) 9 inches Height (Calculated Centimeters) 175. 628710 cm Weight (Pounds) 230 pounds Weight (Ounces) 3.0 oz Weight (Calculated Grams) 718176.365 gm Weight (Calculated Kilograms) 104.41 1295 kilograms [...] inches 10/24/2016 2:35pm Height (Calculated Centimeters) 172. 205455 cm 10/24/2016 2:35pm Weight (Pounds) 235 pounds 10/24/2016 2:35pm Weight (Ounces) 9.0 oz 0 10/24/2016 2:35pm Weight (Calculated Grams) 730558.35 gm 10/24/2016 2:35pm Weight (Calculated Kilograms) 106.84 9354 kilograms 10/24/2016 2:35pm Calculated BMI 35.8 10/06 2:35pm Vital Response Date/Time Temperature (Fahrenheit) 97.6 degree s F (97.6 - 99.5) 11/02/2016 8:30am Temperature (Calculated Celsius) 36. 71628 degrees C (36.4 - 37.5) 11/02/2016 8:30am [...] inches 10/31/2016 7:12am Height (Calculated Centimeters) 172. 447427 cm 10/31/2016 7:12am Weight (Pounds) 235 pounds 10/31/2016 7:12am Weight (Ounces) 9.0 oz 0 10/31/2016 7:12am Weight (Calculated Grams) 645287.35 gm 10/31/2016 7:12am Weight (Calculated Kilograms) 106.84 9354 kilograms 10/31/2016 7:12am Calculated BMI 35.8 10/06 7:12am Vital Response Date/Time Temperature (Fahrenheit) 98.4 degree s F (97.6 - 99.5) 11/05/2016 8:09pm Temperature (Calculated Celsius) 36. 87441 degrees C (36.4 - 37.5) 11/05/2016 8:09pm [...] inches 11/05/2016 7:33pm Height (Calculated Centimeters) 175. 368363 cm 11/05/2016 7:33pm Weight (Pounds) 210 pounds 11/05/2016 7:33pm Weight (Ounces) 9.0 oz 0 10/31/2016 7:12am Weight (Calculated Grams) 274110.35 gm 10/31/2016 7:12am Weight (Calculated Kilograms) 95.254 399 kilograms 11/05/2016 7:33pm Calculated BMI 35.8 10/06 7:12am Capillary Refill Capillary Refill Less Than 3 Seconds 11/05/2016 7:33pm Vital Response Date/Time Temperature (Fahrenheit) 98.4 degree s F (97.6 - 99.5) 11/05/2016 8:09pm Temperature (Calculated Celsius) 36. 55233 degrees C (36.4 - 37.5) 11/05/2016 8:09pm [...] inches 11/05/2016 7:33pm Height (Calculated Centimeters) 175. 316554 cm 11/05/2016 7:33pm Weight (Pounds) 210 pounds 11/05/2016 7:33pm Weight (Ounces) 9.0 oz 0 10/31/2016 7:12am Weight (Calculated Grams) 936077.35 gm 10/31/2016 7:12am Weight (Calculated Kilograms) 95.254 399 kilograms 11/05/2016 7:33pm Calculated BMI 35.8 10/06 7:12am Capillary Refill Capillary Refill Less Than 3 Seconds 11/05/2016 7:33pm Functional Status The data below is from [...] status information available. Mental Status No Information Urinalysis complete W Reflex Culture panel (U) 2019-11-16 Note Date & Note Facility Type 11-16-2019 CULTURE PENDING (L) culture already in progress PENDING LOCATION [facility] Urinalysis (08298) complete W Reflex Culture panel (U) Advance Directives Directive Response Recor ded Date/Time Advance Directives No 11:00pm Health Care Power of Cook Jelly No 12/03/15 8:43pm Organ Donor No 12/03/15 8:43pm Resuscitation Status Full Code 12/03/15 11:00pm Directive Response Recor ded Date/Time Advance Directives No 2:17pm Health Care Power of Cook Jelly No 03/20/16 2:17pm Organ Donor No 03/20/16 2:17pm Resuscitation Status Full Code 03/20/16 2:17pm Directive Response Recor ded Date/Time Advance Directives No 1:04pm Health Care Power of Cook Jelly No 03/22/16 1:04pm Organ Donor No 03/22/16 1:04pm Resuscitation Status Full Code 03/22/16 1:04pm Directive Response Recor ded Date/Time Advance Directives No 8:57pm Health Care Power of Cook Jelly No 04/07/16 8:57pm Organ Donor No 04/07/16 8:57pm Resuscitation Status Full Code 04/07/16 8:57pm Directive Response Recor ded Date/Time Advance Directives No 4:00pm Health Care Power of Cook Jelly No 04/08/16 4:00pm Organ Donor No 04/08/16 4:00pm Resuscitation Status Full Code 04/08/16 4:00pm Directive Response Recor ded Date/Time Advance Directives No 4:27am Health Care Power of Cook Jelly No 04/28/16 4:27am Organ Donor No 04/28/16 4:27am Resuscitation Status Full Code 04/28/16 4:27am Directive Response Recor ded Date/Time Advance Directives No 7:30pm Health Care Power of Cook Jelly No 07/24/16 7:30pm Organ Donor No 07/24/16 7:30pm Resuscitation Status Full Code 07/24/16 7:30pm Directive Response Recor ded Date/Time Advance Directives No 6:51pm Health Care Power of Cook Jelly No 08/25/16 6:51pm Organ Donor No 08/25/16 6:51pm Resuscitation Status Full Code 08/25/16 6:51pm Directive Response Recor ded Date/Time Advance Directives No 12:40pm Health Care Power of Cook Jelly No 06/03/15 12:40pm Organ Donor No 06/03/15 12:40pm Resuscitation Status Full Code 06/03/15 12:40pm Directive Response Recor ded Date/Time Advance Directives No 5:08pm Health Care Power of Cook Jelly No 05/31/15 5:08pm Organ Donor No 05/31/15 5:08pm Resuscitation Status Full Code 05/31/15 5:08pm Directive Response Recor ded Date/Time Advance Directives No 4:27pm Health Care Power of Cook Jelly No 04/15/14 4:27pm Organ Donor No 04/15/14 4:27pm Resuscitation Status Full Code 04/15/14 4:27pm Directive Response Recor ded Date/Time Advance Directives No 2:37pm Health Care Power of Cook Jelly No 10/24/16 2:37pm Organ Donor No 08/25/16 6:51pm Resuscitation Status Full Code 10/24/16 2:37pm Directive Response Recor ded Date/Time Advance Directives No 10:38am Health Care Power of Cook Jelly No 10/31/16 10:38am Organ Donor No 10/31/16 10:38am Resuscitation Status Full Code 10/31/16 10:38am Directive Response Recor ded Date/Time Advance Directives No 7:33pm Health Care Power of Cook Jelly No 11/05/16 7:33pm Organ Donor No 11/05/16 7:33pm Resuscitation Status Full Code 11/05/16 7:33pm Discharge Instructions Patient Instructions Physician Instructions Patient Instructions/FollowUp: Obtain appt with Dr Lance in 1 week Patient Problems: Deconditioning DM Hypoxia [place] DISCHARGE ORDERS Height (Feet): 5 Height (Inches): 9.00 Weight (Pounds): 230 Weight (Ounces): 3.0 Weight (Kilograms): 111.4 Reason Pt Homebound Weakness I Have Seen Pt [id number]: Yes Date of Face to Face: Dec 08, 2015 Discharged To: Home Diagnosis/Conditions HH Order: Med administration PT/OT *I certify that based on my findings, the following services are medically necessary Home Health Services: Services: Nursing Services, Senior Telecommunications Technician-Evaluate & Treat, Physical Therapy-Evaluate & Treat, Speech Language-Evaluate & Treat My clinical findings support the need for the above services; see Diagnosis. Dicharge Diet: ADA Diet Daily Activity as Tolerated: Yes New, Converted, or Re-newed RX: Other (No new meds) I certify that this patient is under my care and that I, a nurse practitioner or a physician; a engineer second assistant working with me, had a face to face encounter that - meets the physician face to face encounter requirements with this patient as dated. Care Plan Patient Instructions:: Obtain appt with Dr Lance in 1 week Patient Problems: DeconditioningDMHypoxia No hospital discharge instructions. Patient Instructions Physician Instructions Follow Up/Plan appointment with Dr. Katherine's office in 2-4 weeks CARDIAC CATH DISCHARGE [...] status Patient Problems: UTI Debility HTN [place] DISCHARGE ORDERS Height (Feet): 5 Height (Inches): 8.00 Weight (Pounds): 256 Weight (Ounces): 9.0 Weight (Kilograms): 111.4 Reason Pt Homebound weakness, dementia I Have Seen Pt [id number]: Yes Date of Face to Face: Jul [...] a nurse practitioner or a physician; a engineer second assistant working with me, had a face [...] This clinical document has been generated using [employer] software that has been certified by the Office of the National Coordinator for Health Information Technology (ONC 15.99.04.3023.Diam.31.00.0.608255) and the National Committee for Radiology Orderly (NCQA, as an eMeasure certified technology). FOR [...] BASED ON T HE PRIMARY CLINICAL RECORDS. [employer] [facility]. provides no warranty or guara ntee of the accuracy or completeness of information in this document.The followi ng information is based on time limited clinical information
--- OUTSIDE RECORDS SUMMARY | 2019-11-16 17:43 | XMS REPORT | Continuity of Care Document ---
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, STAGE III (MODER 04/28/2012 [...] MD Ot 278.0 1 MORBID OBESITY 07/14/2013 VERENA LANCE MD Ot 288.6 0 LEUKOCYTOSIS, UNSPECIFIED 07/14/2013 VERENA LANCE MD Ot 327.2 3 OBSTRUCTIVE SLEEP APNEA (ADULT) (PEDIATR 07/14/2013 VERENA LANCE MD Ot 401.9 HYPERTENSION NOS 07/14/2013 VERENA LANCE MD Ot 414.0 1 CORONARY ATHEROSCLEROSIS OF [place] CORON 07/14/2013 VERENA LANCE MD Ot 496 [...] Ot I25.1 0 ATHSCL HEART DISEASE OF [place] CORONARY 06/03/2015 VERENA LANCE MD, Ot I50.9 [...] SPECIF 06/03/2015 VERENA LANCE MD, Ot Z79.4 LONGTERM (CURRENT) USE OF INSULIN 06/03/2015 VERENA LANCE [...] Ot B35.4 TINEA CORPORIS 06/11/2015 JOHNY UP, NAM E Ot E11.9 TYPE 2 DIABETES MELLITUS WITHOUT COMPLIC 06/11/2015 JOHNY UP, NAM E Ot E86.0 DEHYDRATION 06/11/2015 JOHNY UP, NAM E Ot E87.1 HYPO-OSMOLALITY AND HYPONATREMIA 06/11/2015 JOHNY UP NAM E Ot 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, SO STATED 06/11/2015 JOHNY UP, NAM E Ot I10 ESSENTIAL (PRIMARY) HYPERTENSION 06/11/2015 JOHNY UP NAM E Ot I25.1 0 ATHSCL HEART DISEASE OF [place] CORONARY 06/11/2015 JOHNY UP NAM E Ot [...] Ot I25.1 0 ATHSCL HEART DISEASE OF [place] CORONARY 12/07/2015 VERENA LANCE MD, Ot J44.9 [...] ADULT 12/07/2015 VERENA LANCE MD, Ot Z79.4 LONGTERM (CURRENT) USE OF INSULIN 12/07/2015 VERENA LANCE [...] Ot I25.1 0 ATHSCL HEART DISEASE OF [place] CORONARY 12/08/2015 VERENA LANCE MD, Ot J44.9 CHRONIC OBSTRUCTIVE PULMONARY DISEASE, U 12/08/2015 VERENA LANCE MD, Ot 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 4 LONGTERM (CURRENT) USE OF INSULIN 02/24/2016 ALEENA LANCE [...] 02/24/2016 ALEENA LANCE MD Ot Z79. 4 LONGTERM (CURRENT) USE OF INSULIN 02/24/2016 ALEENA LANCE MD Ot Z79.899 OTHER LONGTERM (CURRENT) DRUG THERAPY 02/25/2016 ALEENA LANCE MD [...] ALEENA LANCE MD A Ot Z79. 4 LONGTERM (CURRENT) USE OF INSULIN 02/25/2016 ALEENA LANCE MD A Ot Z79.899 OTHER LONGTERM (CURRENT) DRUG THERAPY 02/29/2016 ALEENA LANCE MD [...] ALEENA LANCE MD A Ot Z79. 4 LONGTERM (CURRENT) USE OF INSULIN 02/29/2016 TERRELL LANCE MDNT A Ot Z79.899 OTHER WATER JET LOOM FIXER (CURRENT) DRUG THERAPY 03/04/2016 VANNESSA MORRIS LABORER/KEY MAN Ot J44.9 CHRONIC OBSTRUCTIVE PULMONARY DISEASE, U 03/04/2016 VANNESSA MORRISP Ot R06.02 SHORTNESS OF BREATH 03/04/2016 VANNESSA MORRISP Ot R53.83 OTHER FATIGUE 03/04/2016 VANNESSA MORRIS LABORER/KEY MAN Ot Z79.82 LONGTERM (CURRENT) USE OF ASPIRIN 03/04/2016 ALEXANDRAVANNESSA JosueP Ot Z79.899 OTHER WATER JET LOOM FIXER (CURRENT) DRUG THERAPY 03/06/2016 VANNESSA MORRISP Ot J44.9 CHRONIC OBSTRUCTIVE PULMONARY DISEASE, U 03/06/2016 VANNESSA MORRISP Ot R06.02 SHORTNESS OF BREATH 03/06/2016 VANNESSA MORRIS LABORER/KEY MAN Ot R53.83 OTHER FATIGUE 03/06/2016 VANNESSA MORRIS LABORER/KEY MAN Ot Z79.82 WATER JET LOOM FIXER (CURRENT) USE OF ASPIRIN 03/06/2016 ALEXANDRA VANNESSA LABORER/KEY MAN Ot Z79.899 OTHER WATER JET LOOM FIXER (CURRENT) DRUG THERAPY 03/07/2016 VANNESSA MORRISP Ot J44.9 CHRONIC OBSTRUCTIVE PULMONARY DISEASE, U 03/07/2016 VANNESSA MORRISP Ot R06.02 SHORTNESS OF BREATH 03/07/2016 VANNESSA MORRISP Ot R53.83 OTHER FATIGUE 03/07/2016 VANNESSA MORRISP Ot Z79.82 WATER JET LOOM FIXER (CURRENT) USE OF ASPIRIN 03/07/2016 VANNESSA MORRISP Ot Z79.899 OTHER LONGTERM (CURRENT) DRUG THERAPY 03/07/2016 Ot 424.0 MITR [...] OTHER FATIGUE 03/10/2016 VANNESSA MORRISP Ot Z79.82 LONGTERM (CURRENT) USE OF ASPIRIN 03/10/2016 VANNESSA MORRIS AMY Ot Z79.899 OTHER WATER JET LOOM FIXER (CURRENT) DRUG THERAPY 03/10/2016 SILAS HAINES MD Ot E78. 2 MIXED HYPERLIPIDEMIA 03/10/2016 SILAS HAINES MD Ot F17.200 NICOTINE DEPENDENCE, UNSPECIFIED, UNCOMP 03/10/2016 SILAS HAINES MD Ot I10 ESSENTIAL (PRIMARY) HYPERTENSION 03/10/2016 SILAS HAINES MD Ot I25. 10 ATHSCL HEART DISEASE OF [place] CORONARY 03/10/2016 SILAS HAINES MD Ot R07. 9 CHEST PAIN, UNSPECIFIED 03/10/2016 SILAS HAINES MD Ot E78. 2 MIXED HYPERLIPIDEMIA 03/10/2016 SILAS HAINES MD Ot F17.200 NICOTINE DEPENDENCE, UNSPECIFIED, UNCOMP 03/10/2016 SILAS HAINES MD Ot I10 ESSENTIAL (PRIMARY) HYPERTENSION 03/10/2016 SILAS HAINES MD Ot I25. 10 ATHSCL HEART DISEASE OF [place] CORONARY 03/10/2016 SILAS HAINES MD Ot R07. 9 CHEST PAIN, UNSPECIFIED 03/13/2016 SILAS HAINES MD Ot I25. 10 ATHSCL HEART DISEASE OF [place] CORONARY 03/13/2016 SILAS HAINES MD Ot I25. 10 ATHSCL HEART DISEASE OF [place] CORONARY 03/14/2016 SILAS HAINES MD Ot E78. 2 MIXED HYPERLIPIDEMIA 03/14/2016 SILAS HAINES MD Ot F17.200 NICOTINE DEPENDENCE, UNSPECIFIED, UNCOMP 03/14/2016 SILAS HAINES MD Ot I10 ESSENTIAL (PRIMARY) HYPERTENSION 03/14/2016 SILAS HAINES MD Ot I25. 10 ATHSCL HEART DISEASE OF [place] CORONARY 03/14/2016 SILAS HAINES MD Ot R07. 9 CHEST PAIN, UNSPECIFIED 03/14/2016 SILAS HAINES MD Ot I25. 10 ATHSCL HEART DISEASE OF [place] CORONARY 03/14/2016 SILAS HAINES MD Ot E78. 2 MIXED HYPERLIPIDEMIA 03/14/2016 SILAS HAINES MD Ot F17.200 NICOTINE DEPENDENCE, UNSPECIFIED, UNCOMP 03/14/2016 SILAS HAINES MD Ot I10 ESSENTIAL (PRIMARY) HYPERTENSION 03/14/2016 SILAS HAINES MD Ot I25. 10 ATHSCL HEART DISEASE OF [place] CORONARY 03/14/2016 SILAS HAINES MD Ot R07. [...] WEAKNESS 03/20/2016 TREVOR MCCABE DO Ot Z79.4 LONGTERM (CURRENT) USE OF INSULIN 03/20/2016 TREVOR MCCABE DO Ot Z79.899 OTHER LONGTERM (CURRENT) DRUG THERAPY 03/20/2016 TREVOR MCCABE DO [...] WEAKNESS 03/21/2016 TREVOR MCCABE DO Ot Z79.4 LONGTERM (CURRENT) USE OF INSULIN 03/21/2016 TREVOR MCCABE DO Ot Z79.899 OTHER LONGTERM (CURRENT) DRUG THERAPY 03/21/2016 TREVOR MCCABE DO Ot Z87.891 PERSONAL HISTORY OF NICOTINE DEPENDENCE 03/23/2016 SILAS HAINES MD Ot E11. 9 TYPE 2 DIABETES MELLITUS WITHOUT COMPLIC 03/23/2016 SILAS HAINES MD Ot E78. 5 HYPERLIPIDEMIA, UNSPECIFIED 03/23/2016 SILAS HAINES MD Ot I10 ESSENTIAL (PRIMARY) HYPERTENSION 03/23/2016 SILAS HAINES MD Ot I25. 10 ATHSCL HEART DISEASE OF [place] CORONARY 03/23/2016 SILAS HAINES MD Ot I25. 84 CORONARY ATHEROSCLEROSIS DUE TO CALCIFIE 03/23/2016 SILAS HAINES MD, Ot J44. 9 CHRONIC OBSTRUCTIVE PULMONARY DISEASE, U 03/23/2016 SILAS HAINES MD Ot K21. 9 GASTRO-ESOPHAGEAL REFLUX DISEASE WITHOUT 03/23/2016 SILAS HAINES MD Ot R94. 39 ABNORMAL RESULT OF OTHER CARDIOVASCULAR 03/23/2016 SILAS HAINES MD, Ot Z79. 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 10 ATHSCL HEART DISEASE OF [place] CORONARY 03/29/2016 SILAS HAINES MD Ot R07. 9 CHEST PAIN, UNSPECIFIED 04/04/2016 SILAS HAINES MD Ot E78. 2 MIXED HYPERLIPIDEMIA 04/04/2016 SILAS HAINES MD Ot F17.200 NICOTINE DEPENDENCE, UNSPECIFIED, UNCOMP 04/04/2016 SILAS HAINES MD Ot I10 ESSENTIAL (PRIMARY) HYPERTENSION 04/04/2016 SILAS HAINES MD Ot I25. 10 ATHSCL HEART DISEASE OF [place] CORONARY 04/04/2016 SILAS HAINES MD Ot R07. [...] HEADACHE 04/07/2016 JOANNA ANDREW MD Ot Z79.82 WATER JET LOOM FIXER (CURRENT) USE OF ASPIRIN 04/07/2016 JOANNA ANDREW MD Ot Z79.899 OTHER LONGTERM (CURRENT) DRUG THERAPY 04/08/2016 JANESSA SMITH MD Ot E11. 9 TYPE 2 DIABETES MELLITUS WITHOUT COMPLIC 04/08/2016 JANESSA SMITH MD Ot F17.210 NICOTINE DEPENDENCE, CIGARETTES, UNCOMPL 04/08/2016 JANESSA SMITH MD Ot I10 ESSENTIAL (PRIMARY) HYPERTENSION 04/08/2016 JANESSA SMITH MD Ot J44. 9 CHRONIC OBSTRUCTIVE PULMONARY DISEASE, U 04/08/2016 JANESSA SMITH MD Ot Z79. 4 LONGTERM (CURRENT) USE OF INSULIN 04/08/2016 JANESSA SMITH MD Ot Z79. 82 LONGTERM (CURRENT) USE OF ASPIRIN 04/08/2016 JANESSA SMITH MD Ot Z79.899 OTHER LONGTERM (CURRENT) DRUG THERAPY 04/08/2016 JANESSA SMITH MD [...] HEADACHE 04/10/2016 JOANNA ANDREW MD Ot Z79.82 WATER JET LOOM FIXER (CURRENT) USE OF ASPIRIN 04/10/2016 JOANNA ANDREW MD Ot Z79.899 OTHER WATER JET LOOM FIXER (CURRENT) DRUG THERAPY 04/10/2016 JANESSA SMITH MD Ot E11. 9 TYPE 2 DIABETES MELLITUS WITHOUT COMPLIC 04/10/2016 JANESSA SMITH MD Ot F17.210 NICOTINE DEPENDENCE, CIGARETTES, UNCOMPL 04/10/2016 JANESSA SMITH MD Ot I10 ESSENTIAL (PRIMARY) HYPERTENSION 04/10/2016 JANESSA SMITH MD, Ot J44. 9 CHRONIC OBSTRUCTIVE PULMONARY DISEASE, U 04/10/2016 JANESSA SMITH MD Ot Z79. 4 LONGTERM (CURRENT) USE OF INSULIN 04/10/2016 JANESSA SMITH MD Ot Z79. 82 LONGTERM (CURRENT) USE OF ASPIRIN 04/10/2016 JANESSA SMITH MD Ot Z79.899 OTHER WATER JET LOOM FIXER (CURRENT) DRUG THERAPY 04/10/2016 JANESSA SMITH MD Ot Z95. 5 PRESENCE OF CORONARY ANGIOPLASTY IMPLANT 04/14/2016 SILAS HAINES MD Ot E78. 2 MIXED HYPERLIPIDEMIA 04/14/2016 SILAS HAINES MD Ot F17.200 NICOTINE DEPENDENCE, UNSPECIFIED, UNCOMP 04/14/2016 SILAS HAINES MD Ot I10 ESSENTIAL (PRIMARY) HYPERTENSION 04/14/2016 SILAS HAINES MD Ot I25. 10 ATHSCL HEART DISEASE OF [place] CORONARY 04/14/2016 SILAS HAINES MD Ot R07. 9 CHEST PAIN, UNSPECIFIED 04/14/2016 SILAS HAINES MD Ot E78. 2 MIXED HYPERLIPIDEMIA 04/14/2016 SILAS HAINES MD Ot F17.200 NICOTINE DEPENDENCE, UNSPECIFIED, UNCOMP 04/14/2016 SILAS HAINES MD Ot I10 ESSENTIAL (PRIMARY) HYPERTENSION 04/14/2016 SILAS HAINES MD Ot I25. 10 ATHSCL HEART DISEASE OF [place] CORONARY 04/14/2016 SILAS HAINES MD Ot R07. 9 CHEST PAIN, UNSPECIFIED 04/20/2016 SILAS HAINES MD Ot E11. 9 TYPE 2 DIABETES MELLITUS WITHOUT COMPLIC 04/20/2016 SILAS HAINES MD Ot E78. 5 HYPERLIPIDEMIA, UNSPECIFIED 04/20/2016 SILAS HAINES MD Ot I10 ESSENTIAL (PRIMARY) HYPERTENSION 04/20/2016 SILAS HAINES MD Ot I25. 10 ATHSCL HEART DISEASE OF [place] CORONARY 04/20/2016 SILAS HAINES MD Ot I25. 84 CORONARY ATHEROSCLEROSIS DUE TO CALCIFIE 04/20/2016 SILAS HAINES MD Ot J44. 9 CHRONIC OBSTRUCTIVE PULMONARY DISEASE, U 04/20/2016 SILAS HAINES MD Ot K21. 9 GASTRO-ESOPHAGEAL REFLUX DISEASE WITHOUT 04/20/2016 SILAS HAINES MD Ot R94. 39 ABNORMAL RESULT OF OTHER CARDIOVASCULAR 04/20/2016 SILAS HAINES MD Ot Z79. 4 WATER JET LOOM FIXER (CURRENT) USE OF INSULIN 04/20/2016 SILAS HAINES MD Ot Z79.899 OTHER LONGTERM (CURRENT) DRUG THERAPY 04/20/2016 SILAS HAINES MD Ot Z87.891 PERSONAL HISTORY OF NICOTINE DEPENDENCE 04/22/2016 SILAS HAINES MD Ot E11. 9 TYPE 2 DIABETES MELLITUS WITHOUT COMPLIC 04/22/2016 SILAS HAINES MD Ot E78. 5 HYPERLIPIDEMIA, UNSPECIFIED 04/22/2016 SILAS HAINES MD Ot I10 ESSENTIAL (PRIMARY) HYPERTENSION 04/22/2016 SILAS HAINES MD Ot I25. 10 ATHSCL HEART DISEASE OF [place] CORONARY 04/22/2016 SILAS HAINES MD Ot I25. 84 CORONARY ATHEROSCLEROSIS DUE TO [place]IF[place] 04/22/2016 SILAS HAINES MD Ot J44. 9 CHRONIC OBSTRUCTIVE PULMONARY DISEASE, U 04/22/2016 SILAS HAINES MD Ot K21. 9 GASTRO-ESOPHAGEAL REFLUX DISEASE WITHOUT 04/22/2016 SILAS HAINES MD Ot R94. 39 ABNORMAL RESULT OF OTHER CARDIOVASCULAR 04/22/2016 SILAS HAINES MD Ot Z79. 4 LONGTERM (CURRENT) USE OF INSULIN 04/22/2016 SILAS HAINES MD Ot Z79.899 OTHER LONGTERM (CURRENT) DRUG THERAPY 04/22/2016 SILAS HAINES MD Ot Z87.891 PERSONAL HISTORY OF NICOTINE DEPENDENCE 04/28/2016 JOANNA ANDREW MD Ot E11.9 TYPE 2 DIABETES MELLITUS WITHOUT COMPLIC 04/28/2016 JOANAN ANDREW MD, Ot I10 ESSENTIAL (PRIMARY) HYPERTENSION 04/28/2016 JOANNA ANDREW MD, Ot J44.0 CHRONIC OBSTRUCTIVE PULMON DISEASE W ACU 04/28/2016 JOANNA ANDREW MD Ot R06.02 SHORTNESS OF BREATH 04/28/2016 JOANNA ANDREW MD, Ot Z79.4 LONGTERM (CURRENT) USE OF INSULIN 04/28/2016 JOANNA ANDREW MD, Ot Z79.82 WATER JET LOOM FIXER (CURRENT) USE OF ASPIRIN 04/28/2016 JOANNA ANDREW MD, Ot Z79.899 OTHER WATER JET LOOM FIXER (CURRENT) DRUG THERAPY 04/28/2016 JOANNA ANDREW MD, Ot E11.9 TYPE 2 DIABETES MELLITUS WITHOUT COMPLIC 04/28/2016 JOANNA ANDREW MD Ot I10 ESSENTIAL (PRIMARY) HYPERTENSION 04/28/2016 JOANNA ANDREW MD, Ot J44.0 CHRONIC OBSTRUCTIVE PULMON DISEASE W ACU 04/28/2016 JOANNA ANDREW MD Ot R06.02 SHORTNESS OF BREATH 04/28/2016 JOANNA ANDREW MD Ot Z79.4 LONGTERM (CURRENT) USE OF INSULIN 04/28/2016 JOANNA ANDREW MD Ot Z79.82 WATER JET LOOM FIXER (CURRENT) USE OF ASPIRIN 04/28/2016 JOANNA ANDREW MD, Ot Z79.899 OTHER LONGTERM (CURRENT) DRUG THERAPY 05/15/2016 YANCY UP, SILAS [...] Ot I25. 10 ATHSCL HEART DISEASE OF [place] CORONARY 06/14/2016 SILAS HAINES MD Ot R07. 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 10 ATHSCL HEART DISEASE OF [place] CORONARY 06/14/2016 SILAS HAINES MD Ot R07. [...] 07/26/2016 ALFRED BELL MD, Ot Z79 .4 LONGTERM (CURRENT) USE OF INSULIN 07/26/2016 ALFRED BELL MD, Ot Z91.81 HISTORY OF FALLING 07/26/2016 ALFRED BELL MD, Ot Z95 .5 PRESENCE OF CORONARY ANGIOPLASTY IMPLANT 08/25/2016 TREVOR MCCABE DO, Ot E11.9 TYPE 2 DIABETES MELLITUS WITHOUT COMPLIC 08/25/2016 TREVOR MCCABE DO, Ot I1 0 ESSENTIAL (PRIMARY) HYPERTENSION 08/25/2016 TREVOR MCCABE DO, Ot J44.9 CHRONIC OBSTRUCTIVE PULMONARY DISEASE, U 08/25/2016 TREVOR MCCABE DO, Ot N30.91 CYSTITIS, UNSPECIFIED WITH HEMATURIA 08/25/2016 TREVOR MCCABE DO, Ot R31.9 HEMATURIA, UNSPECIFIED 08/25/2016 TREVOR MCCABE DO, Ot Z79.4 WATER JET LOOM FIXER (CURRENT) USE OF INSULIN 08/25/2016 TREVOR MCCABE DO, Ot Z79.82 WATER JET LOOM FIXER (CURRENT) USE OF ASPIRIN 08/25/2016 TREVOR MCCABE DO, Ot Z79.899 OTHER LONGTERM (CURRENT) DRUG THERAPY 08/25/2016 TREVOR MCCABE DO, [...] UNSPECIFIED 08/28/2016 TREVOR MCCABE DO Ot Z79.4 LONGTERM (CURRENT) USE OF INSULIN 08/28/2016 TREVOR MCCABE DO Ot Z79.82 WATER JET LOOM FIXER (CURRENT) USE OF ASPIRIN 08/28/2016 TREVOR MCCABE DO, Ot Z79.899 OTHER WATER JET LOOM FIXER (CURRENT) DRUG THERAPY 08/28/2016 TREVOR MCCABE DO [...] JOHAN Basurto Ot R31.9 HEMATURIA, UNSPECIFIED 10/06/2016 LCAHELLE UP, JOHAN Basurto Ot N13.3 0 UNSPECIFIED [...] BILTRAL ARTERY OCCLUSION WO CEREBRA 10/11/2016 VANESSA ACRRERA Ot 496 CHR AIRWAY OBSTRUCT NEC 10/11/2016 SILAS HAINES MD Ot E78. 2 MIXED HYPERLIPIDEMIA 10/11/2016 SILAS HAINES MD Ot F17.200 NICOTINE DEPENDENCE, UNSPECIFIED, UNCOMP 10/11/2016 SILAS HAINES MD Ot I10 ESSENTIAL (PRIMARY) HYPERTENSION 10/11/2016 SILAS HAINES MD Ot I25. 10 ATHSCL HEART DISEASE OF [place] CORONARY 10/11/2016 SILAS HAINES MD Ot R07. 9 CHEST PAIN, UNSPECIFIED 10/11/2016 SILAS HAINES MD Ot E78. 2 MIXED HYPERLIPIDEMIA 10/11/2016 SILAS HAINES MD Ot F17.200 NICOTINE DEPENDENCE, UNSPECIFIED, UNCOMP 10/11/2016 SILAS HAINES MD Ot I10 ESSENTIAL (PRIMARY) HYPERTENSION 10/11/2016 SILAS HAINES MD Ot I25. 10 ATHSCL HEART DISEASE OF [place] CORONARY 10/11/2016 SILAS HAINES MD Ot R07. 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 0 ATHSCL HEART DISEASE OF [place] CORONARY 11/02/2016 JOHAN LAROSE MD, Ot J44.9 CHRONIC OBSTRUCTIVE PULMONARY DISEASE, U 11/02/2016 JOHAN LAROSE MD, Ot K21.9 GASTRO-ESOPHAGEAL REFLUX DISEASE WITHOUT 11/02/2016 JOHAN LAROSE MD, Ot N31.9 NEUROMUSCULAR DYSFUNCTION OF BLADDER, UN 11/02/2016 JOHAN LAROSE MD, Ot N40.1 BENIGN PROSTATIC HYPERPLASIA WITH LOWER 11/02/2016 JOHAN LAROSE MD, Ot R33.8 OTHER RETENTION OF URINE 11/02/2016 JOHAN LAROSE MD, Ot Z79.4 WATER JET LOOM FIXER (CURRENT) USE OF INSULIN 11/02/2016 JOHAN LAROSE MD, Ot Z79.8 99 OTHER LONGTERM (CURRENT) DRUG THERAPY 11/02/2016 JOHAN LAROSE MD, [...] Ot I25.1 0 ATHSCL HEART DISEASE OF [place] CORONARY 11/02/2016 JOHAN LAROSE MD, Ot J44.9 CHRONIC OBSTRUCTIVE PULMONARY DISEASE, U 11/02/2016 JOHAN LAROSE MD, Ot K21.9 GASTRO-ESOPHAGEAL REFLUX DISEASE WITHOUT 11/02/2016 JOHAN LAROSE MD, Ot N31.9 NEUROMUSCULAR DYSFUNCTION OF BLADDER, UN 11/02/2016 JOHAN LAROSE MD, Ot N40.1 BENIGN PROSTATIC HYPERPLASIA WITH LOWER 11/02/2016 JOHAN LAROSE MD, Ot R33.8 OTHER RETENTION OF URINE 11/02/2016 JOHAN LAROSE MD, Ot Z79.4 LONGTERM (CURRENT) USE OF INSULIN 11/02/2016 JOHAN LAROSE MD, Ot Z79.8 99 OTHER WATER JET LOOM FIXER (CURRENT) DRUG THERAPY 11/02/2016 JOHAN LAROSE MD, [...] Jan Ot I25.10 ATHSCL HEART DISEASE OF [place] CORONARY 11/05/2016 AMANDA WOODSON DO Ot J42 [...] C WOODSON DOA K Ot T83.098 A [facility] COMPL OF OTHER URINARY CATHETER, [place] 11/05/2016 JOSE C WOODSON DOA K Ot Z79.4 WATER JET LOOM FIXER (CURRENT) USE OF INSULIN 11/05/2016 JOSE C [...] K Ot I25.10 ATHSCL HEART DISEASE OF [place] CORONARY 11/09/2016 KANDICE DO AMANDA K Ot [...] URINARY TRACT INFECTION, SITE NOT SPECIF 11/09/2016 KANDICE DO AMANDA K Ot N40.1 BENIGN PROSTATIC HYPERPLASIA WITH LOWER 11/09/2016 KANDICE DO AMANDA K Ot R60.0 LOCALIZED EDEMA 11/09/2016 KANDICE DO, AMANDA K Ot T83.098 A [facility] COMPL OF OTHER URINARY CATHETER, [place] 11/09/2016 KANDICE DO AMANDA K Ot Z79.4 LONGTERM (CURRENT) USE OF INSULIN 11/09/2016 KANDICE DO [...] Ot I25.1 0 ATHSCL HEART DISEASE OF [place] CORONARY 11/10/2016 JOHAN LAROSE MD, Ot J44.9 CHRONIC OBSTRUCTIVE PULMONARY DISEASE, U 11/10/2016 JOHAN LAROSE MD, Ot K21.9 GASTRO-ESOPHAGEAL REFLUX DISEASE WITHOUT 11/10/2016 JOHAN LAROSE MD, Ot N31.9 NEUROMUSCULAR DYSFUNCTION OF BLADDER, UN 11/10/2016 JOHAN LAROSE MD, Ot N40.1 BENIGN PROSTATIC HYPERPLASIA WITH LOWER 11/10/2016 JOHAN LAROSE MD, Ot R33.8 OTHER RETENTION OF URINE 11/10/2016 JOHAN LAROSE MD, Ot Z79.4 WATER JET LOOM FIXER (CURRENT) USE OF INSULIN 11/10/2016 JOHAN LAROSE MD, Ot Z79.8 99 OTHER LONGTERM (CURRENT) DRUG THERAPY 11/10/2016 JOHAN LAROSE MD, [...] Ot I25. 10 ATHSCL HEART DISEASE OF [place] CORONARY 01/26/2017 SILAS HAINES MD Ot R07. 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 10 ATHSCL HEART DISEASE OF [place] CORONARY 01/26/2017 SILAS HAINES MD Ot R07. 9 CHEST PAIN, UNSPECIFIED 01/26/2017 JOHAN LAROSE MD Ot N13.3 0 UNSPECIFIED [...] Ot I25. 10 ATHSCL HEART DISEASE OF [place] CORONARY 01/26/2017 SILAS HAINES MD Ot R07. 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 10 ATHSCL HEART DISEASE OF [place] CORONARY 01/26/2017 SILAS HAINES MD Ot R07. [...] O CEREBRAL IN 04/27/2017 VANESSA CARRERA Ot 433.30 MULT BILTRAL ARTERY OCCLUSION WO CEREBRA 04/27/2017 VANESSA CARRERA Ot 496 CHR AIRWAY OBSTRUCT NEC 04/27/2017 SILAS HAINES MD Ot E78. 2 MIXED HYPERLIPIDEMIA 04/27/2017 SILAS HAINES MD Ot F17.200 NICOTINE DEPENDENCE, UNSPECIFIED, UNCOMP 04/27/2017 SILAS HAINES MD Ot I10 ESSENTIAL (PRIMARY) HYPERTENSION 04/27/2017 SILAS HAINES MD Ot I25. 10 ATHSCL HEART DISEASE OF [place] CORONARY 04/27/2017 SILAS HAINES MD Ot R07. 9 CHEST PAIN, UNSPECIFIED 04/27/2017 SILAS HAINES MD Ot E78. 2 MIXED HYPERLIPIDEMIA 04/27/2017 SILAS HAINES MD Ot F17.200 NICOTINE DEPENDENCE, UNSPECIFIED, UNCOMP 04/27/2017 SILAS HAINES MD Ot I10 ESSENTIAL (PRIMARY) HYPERTENSION 04/27/2017 SILAS HAINES MD Ot I25. 10 ATHSCL HEART DISEASE OF [place] CORONARY 04/27/2017 SILAS HAINES MD Ot R07. [...] Ot I25. 10 ATHSCL HEART DISEASE OF [place] CORONARY 05/25/2017 SILAS HAINES MD Ot R07. 9 CHEST PAIN, UNSPECIFIED 05/25/2017 SILAS HAINES MD Ot E78. 2 MIXED HYPERLIPIDEMIA 05/25/2017 SILAS HAINES MD Ot F17.200 NICOTINE DEPENDENCE, UNSPECIFIED, UNCOMP 05/25/2017 SILAS HAINES MD Ot I10 ESSENTIAL (PRIMARY) HYPERTENSION 05/25/2017 SILAS HAINES MD Ot I25. 10 ATHSCL HEART DISEASE OF [place] CORONARY 05/25/2017 SILAS HAINES MD Ot R07. 9 CHEST PAIN, UNSPECIFIED 05/25/2017 LACHELLE UP, JOHAN Basurto Ot N13.3 0 UNSPECIFIED HYDRONEPHROSIS 05/25/2017 JOHAN LAROSE MD Ot R31.9 HEMATURIA, UNSPECIFIED 05/28/2017 VANESSA CARRERA Ot E78.2 MIXED HYPERLIPIDEMIA 05/28/2017 VANESSA CARRERA Ot G47.33 OBSTRUCTIVE SLEEP APNEA (ADULT) (PEDIATR 05/28/2017 VANESSA CARRERA Ot I10 ESSENTIAL (PRIMARY) HYPERTENSION 05/28/2017 VANESSA CARRERA Ot I25.10 ATHSCL HEART DISEASE OF [place] CORONARY 05/31/2017 VANESSA CARRERA Ot E78.2 MIXED HYPERLIPIDEMIA 05/31/2017 VANESSA CARRERA Ot G47.33 OBSTRUCTIVE SLEEP APNEA (ADULT) (PEDIATR 05/31/2017 VANESSA CARRERA K Ot I10 ESSENTIAL (PRIMARY) HYPERTENSION 05/31/2017 VANESSA CARRERA Ot I25.10 ATHSCL HEART DISEASE OF [place] CORONARY 05/31/2017 VANESSA CARRERA Ot E78.2 MIXED HYPERLIPIDEMIA 05/31/2017 VANESSA CARRERA Ot G47.33 OBSTRUCTIVE SLEEP APNEA (ADULT) (PEDIATR 05/31/2017 VANESSA CARRERA K Ot I10 ESSENTIAL (PRIMARY) HYPERTENSION 05/31/2017 VANESSA CARRERA Ot I25.10 ATHSCL HEART DISEASE OF [place] CORONARY 06/06/2017 SILAS HAINES MD Ot E11. 9 TYPE 2 DIABETES MELLITUS WITHOUT COMPLIC 06/06/2017 SILAS HAINES MD Ot E78. 5 HYPERLIPIDEMIA, UNSPECIFIED 06/06/2017 SILAS HAINES MD Ot G47. 33 OBSTRUCTIVE SLEEP APNEA (ADULT) (PEDIATR 06/06/2017 SILAS HAINES MD Ot I10 ESSENTIAL (PRIMARY) HYPERTENSION 06/06/2017 SILAS HAINES MD Ot I25. 10 ATHSCL HEART DISEASE OF [place] CORONARY 06/06/2017 SILAS HAINES MD Ot J44. 9 CHRONIC OBSTRUCTIVE PULMONARY DISEASE, U 06/06/2017 SILAS HAINES MD Ot K21. 9 GASTRO-ESOPHAGEAL REFLUX DISEASE WITHOUT 06/06/2017 SILAS HAINES MD Ot Z79. 4 LONGTERM (CURRENT) USE OF INSULIN 06/06/2017 SILAS HAINES MD Ot Z79.899 OTHER LONGTERM (CURRENT) DRUG THERAPY 06/12/2017 SILAS HAINES MD Ot E11. 9 TYPE 2 DIABETES MELLITUS WITHOUT COMPLIC 06/12/2017 SILAS HAINES MD Ot E78. 5 HYPERLIPIDEMIA, UNSPECIFIED 06/12/2017 SILAS HAINES MD Ot G47. 33 OBSTRUCTIVE SLEEP APNEA (ADULT) (PEDIATR 06/12/2017 SILAS HAINES MD Ot I10 ESSENTIAL (PRIMARY) HYPERTENSION 06/12/2017 SILAS HAINES MD Ot I25. 10 ATHSCL HEART DISEASE OF [place] CORONARY 06/12/2017 SILAS HAINES MD Ot J44. 9 CHRONIC OBSTRUCTIVE PULMONARY DISEASE, U 06/12/2017 SILAS HAINES MD Ot K21. 9 GASTRO-ESOPHAGEAL REFLUX DISEASE WITHOUT 06/12/2017 SILAS HAINES MD Ot Z79. 4 WATER JET LOOM FIXER (CURRENT) USE OF INSULIN 06/12/2017 SILAS HAINES MD Ot Z79.899 OTHER WATER JET LOOM FIXER (CURRENT) DRUG THERAPY 06/14/2017 SILAS HAINES MD Ot E11. 9 TYPE 2 DIABETES MELLITUS WITHOUT COMPLIC 06/14/2017 SILAS HAINES MD Ot E78. 5 HYPERLIPIDEMIA, UNSPECIFIED 06/14/2017 SILAS HAINES MD Ot G47. 33 OBSTRUCTIVE SLEEP APNEA (ADULT) (PEDIATR 06/14/2017 SILAS HAINES MD Ot I10 ESSENTIAL (PRIMARY) HYPERTENSION 06/14/2017 SILAS HAINES MD Ot I25. 10 ATHSCL HEART DISEASE OF [place] CORONARY 06/14/2017 SILAS HAINES MD Ot J44. 9 CHRONIC OBSTRUCTIVE PULMONARY DISEASE, U 06/14/2017 SILAS HAINES MD Ot K21. 9 GASTRO-ESOPHAGEAL REFLUX DISEASE WITHOUT 06/14/2017 SILAS HAINES MD Ot Z79. 4 LONGTERM (CURRENT) USE OF INSULIN 06/14/2017 SILAS HAINES MD Ot Z79.899 OTHER WATER JET LOOM FIXER (CURRENT) DRUG THERAPY 06/21/2017 VANESSA CARRERA Ot E78.2 MIXED HYPERLIPIDEMIA 06/21/2017 VANESSA CARRERA Ot G47.33 OBSTRUCTIVE SLEEP APNEA (ADULT) (PEDIATR 06/21/2017 VANESSA CARRERA Ot I10 ESSENTIAL (PRIMARY) HYPERTENSION 06/21/2017 VANESSA CARRERA Ot I25.10 ATHSCL HEART DISEASE OF [place] CORONARY 06/22/2017 VANESSA CARRERA Ot E78.2 MIXED HYPERLIPIDEMIA 06/22/2017 VANESSA CARRERA Ot G47.33 OBSTRUCTIVE SLEEP APNEA (ADULT) (PEDIATR 06/22/2017 VANESSA CARRERA Ot I10 ESSENTIAL (PRIMARY) HYPERTENSION 06/22/2017 VANESSA CARRERA Ot I25.10 ATHSCL HEART DISEASE OF [place] CORONARY 07/02/2017 VANESSA CARRERA Ot E78.2 MIXED HYPERLIPIDEMIA 07/02/2017 VANESSA CARRERA Ot G47.33 OBSTRUCTIVE SLEEP APNEA (ADULT) (PEDIATR 07/02/2017 VANESSA CARRERA Ot I10 ESSENTIAL (PRIMARY) HYPERTENSION 07/02/2017 VANESSA CARRERA Ot I25.10 ATHSCL HEART DISEASE OF [place] CORONARY 07/02/2017 VANESSA CARRERA Ot E78.2 MIXED HYPERLIPIDEMIA 07/02/2017 VANESSA CARRERA Ot G47.33 OBSTRUCTIVE SLEEP APNEA (ADULT) (PEDIATR 07/02/2017 VANESSA CARRERA Ot I10 ESSENTIAL (PRIMARY) HYPERTENSION 07/02/2017 VANESSA CARRERA Ot I25.10 ATHSCL HEART DISEASE OF [place] CORONARY 09/29/2018 VANESSA CARRERA Ot 272.4 HYPERLIPIDEMIA [...] Ot I25. 10 ATHSCL HEART DISEASE OF [place] CORONARY 09/29/2018 SILAS HAINES MD Ot R07. 9 CHEST PAIN, UNSPECIFIED 09/29/2018 SILAS HAINES MD Ot E78. 2 MIXED HYPERLIPIDEMIA 09/29/2018 SILAS HAINES MD Ot F17.200 NICOTINE DEPENDENCE, UNSPECIFIED, UNCOMP 09/29/2018 SILAS HAINES MD Ot I10 ESSENTIAL (PRIMARY) HYPERTENSION 09/29/2018 SILAS HAINES MD Ot I25. 10 ATHSCL HEART DISEASE OF [place] CORONARY 09/29/2018 SILAS HAINES MD Ot R07. 9 CHEST PAIN, UNSPECIFIED 09/29/2018 LACHELLE UP, JOHAN Basurto Ot N13.3 0 UNSPECIFIED HYDRONEPHROSIS 09/29/2018 LACHELLE UP, JOHAN Basurto Ot R31.9 HEMATURIA, UNSPECIFIED 09/29/2018 VANESSA CARRERA Ot E78.2 MIXED HYPERLIPIDEMIA 09/29/2018 VANESSA CARRERA Ot G47.33 OBSTRUCTIVE SLEEP APNEA (ADULT) (PEDIATR 09/29/2018 VANESSA ACRRERA Ot I10 ESSENTIAL (PRIMARY) HYPERTENSION 09/29/2018 VANESSA CARRERA Ot I25.10 ATHSCL HEART DISEASE OF [place] CORONARY 09/29/2018 VANESSA CARRERA Ot E78.2 MIXED HYPERLIPIDEMIA 09/29/2018 VANESSA CARRERA Ot G47.33 OBSTRUCTIVE SLEEP APNEA (ADULT) (PEDIATR 09/29/2018 VANESSA CARRERA Ot I10 ESSENTIAL (PRIMARY) HYPERTENSION 09/29/2018 VANESSA CARRERA Ot I25.10 ATHSCL HEART DISEASE OF [place] CORONARY 09/29/2018 AMANDA WOODSON DO Ot E11.22 TYPE 2 DIABETES MELLITUS W DIABETIC CHIEF OF STAFF DOCTOR 09/29/2018 AMANDA WOODSON DO Ot E11.40 TYPE [...] DO Ot I25.10 ATHSCL HEART DISEASE OF [place] CORONARY 09/29/2018 AMANDA WOODSON DO Ot J44.1 CHRONIC OBSTRUCTIVE PULMONARY DISEASE W 09/29/2018 AMANDA WOODSON DO Ot K21.9 GASTRO-ESOPHAGEAL REFLUX DISEASE WITHOUT 09/29/2018 AMANDA WOODSON DO Ot N18.9 CHRONIC KIDNEY DISEASE, UNSPECIFIED 09/29/2018 AMANDA WOODSON DO Ot R06.02 SHORTNESS OF BREATH 09/29/2018 AMANDA WOODSON DO Ot W19.XXX A UNSPECIFIED FALL, INITIAL ENCOUNTER 09/29/2018 AMANDA WOODSON DO Ot Z79.4 LONGTERM (CURRENT) USE OF INSULIN 09/29/2018 AMANDA WOODSON DO Ot Z79.52 WATER JET LOOM FIXER (CURRENT) USE OF SYSTEMIC STER 09/29/2018 AMANDA [...] E11.22 TYPE 2 DIABETES MELLITUS W DIABETIC CHIEF OF STAFF DOCTOR 10/03/2018 KANDICE AMANDA PACHECO Ot E11.40 TYPE 2 DIABETES MELLITUS WITH DIABETIC N 10/03/2018 KNADICE AMANDA PACHECO Ot F03.90 UNSPECIFIED DEMENTIA WITHOUT BEHAVIORAL 10/03/2018 KANDICE AMANDA K Ot F32.9 MAJOR DEPRESSIVE DISORDER, SINGLE EPISOD 10/03/2018 KANDICE AMANDA Ot G47.30 SLEEP APNEA, UNSPECIFIED 10/03/2018 KANDICE DO AMANDA K Ot I12.9 HYPERTENSIVE CHRONIC KIDNEY DISEASE W ST 10/03/2018 KANDICE AMANDA Ot I25.10 ATHSCL HEART DISEASE OF [place] CORONARY 10/03/2018 KANDICE PACHECO AMANDA K Ot J44.1 CHRONIC OBSTRUCTIVE PULMONARY DISEASE W 10/03/2018 KANDICE DO AMANDA K Ot K21.9 GASTRO-ESOPHAGEAL REFLUX DISEASE WITHOUT 10/03/2018 KANDICE AMANDA K Ot N18.9 CHRONIC KIDNEY DISEASE, UNSPECIFIED 10/03/2018 KANDICE AMANDA Jan Ot R06.02 SHORTNESS OF BREATH 10/03/2018 KANDICE AMANDA K Ot W19.XXX A UNSPECIFIED FALL, INITIAL ENCOUNTER 10/03/2018 AMANDA WOODSON DO Ot Z79.4 LONGTERM (CURRENT) USE OF INSULIN 10/03/2018 JOSE C WOODSON DOA Jan Ot Z79.52 WATER JET LOOM FIXER (CURRENT) USE OF SYSTEMIC STER 10/03/2018 JOSE [...] AMANDA Jan Ot Z88.8 ALLERGY STATUS TO [facility] DRUG/MEDS/BIOL SUB 10/03/2018 AMANDA WOODSON DO [...] Ot I25.1 0 ATHSCL HEART DISEASE OF [place] CORONARY 03/03/2019 VERENA LANCE MD, Ot J20.9 [...] Ot I25.1 0 ATHSCL HEART DISEASE OF [place] CORONARY 03/19/2019 VERENA LANCE MD Ot J20.9 [...] E11.22 TYPE 2 DIABETES MELLITUS W DIABETIC CHIEF OF STAFF DOCTOR 05/01/2019 CRISTINE PACHECO CARLOS Ot E11.40 TYPE [...] CARLOS Ot I25.10 ATHSCL HEART DISEASE OF [place] CORONARY 05/01/2019 CRISTINE PACHECO CARLOS Ot J20.9 ACUTE BRONCHITIS, UNSPECIFIED 05/01/2019 CRISTINE DO CARLOS Ot J44.0 CHR OBSTRUCTIVE PULMON DISEASE WITH (ACU 05/01/2019 CRISTINE DO CARLOS Ot J44.1 CHRONIC OBSTRUCTIVE PULMONARY DISEASE W 05/01/2019 CRISTINE PACHECO CARLOS Ot J96.20 ACUTE AND CHR RESP FAILURE, UNSP W HYPOX 05/01/2019 COLUNGA DO, CARLOS Ot K21.9 GASTRO-ESOPHAGEAL REFLUX DISEASE WITHOUT 05/01/2019 CRISTINE PACHECO CARLOS Ot M54.9 DORSALGIA, UNSPECIFIED 05/01/2019 RODNEY COLUNGA DOI Ot N18.9 CHRONIC KIDNEY DISEASE, UNSPECIFIED 05/01/2019 CRISTINE PACHECO CARLOS Ot N40.0 BENIGN PROSTATIC HYPERPLASIA WITHOUT LOW 05/01/2019 CRISTINE PACHECO CARLOS Ot Z68.38 BODY MASS INDEX (BMI) 38.0-38.9, ADULT 05/01/2019 RODNEY COLUNGA DOI Ot Z87.89 1 PERSONAL HISTORY OF NICOTINE DEPENDENCE 05/01/2019 RODNEY COLUNGA DOI Ot Z99.81 DEPENDENCE ON SUPPLEMENTAL OXYGEN 07/11/2019 CASI UP, VERENA Sanchez Ot J44.9 CHRONIC OBSTRUCTIVE PULMONARY DISEASE, U 07/22/2019 SEJAL CHAMORRO APRN Ot J18.9 PNEUMONIA, UNSPECIFIED ORGANISM 07/22/2019 SEJAL CHAMORRO EXECUTIVE TEAM LEADER Ot J18.9 PNEUMONIA, UNSPECIFIED ORGANISM 07/28/2019 CASS UP, NICOLA J Ot E11. 40 TYPE 2 DIABETES MELLITUS WITH DIABETIC N 07/28/2019 NICOLA ODELL MD J Ot E78. 00 PURE HYPERCHOLESTEROLEMIA, UNSPECIFIED 07/28/2019 CASS UP, NICOLA J Ot F03. 90 UNSPECIFIED DEMENTIA WITHOUT BEHAVIORAL 07/28/2019 CASS UP, NICOLA J Ot F32. 9 MAJOR DEPRESSIVE DISORDER, SINGLE EPISOD 07/28/2019 NICOLA ODELL MD J Ot F41. 9 ANXIETY DISORDER, UNSPECIFIED 07/28/2019 CASS UP, NICOLA J Ot G47. 30 SLEEP APNEA, UNSPECIFIED 07/28/2019 BOY ODELL MDUS J Ot I10 ESSENTIAL (PRIMARY) HYPERTENSION 07/28/2019 BOY ODELL MDUS J Ot I25. 10 ATHSCL HEART DISEASE OF [place] CORONARY 07/28/2019 NICOLA ODELL MD J Ot J18. 9 PNEUMONIA, UNSPECIFIED ORGANISM 07/28/2019 NICOLA ODELL MD Ot J44. 1 CHRONIC OBSTRUCTIVE PULMONARY DISEASE W 07/28/2019 NICOLA ODELL MD J Ot K21. 9 GASTRO-ESOPHAGEAL REFLUX DISEASE WITHOUT 07/28/2019 BOY ODELL MDUS J Ot M19. 91 PRIMARY OSTEOARTHRITIS, UNSPECIFIED SITE 07/28/2019 NICOLA ODELL MD J Ot M54. 9 DORSALGIA, UNSPECIFIED 07/28/2019 NICOLA ODELL MD Ot N31. 9 NEUROMUSCULAR DYSFUNCTION OF BLADDER, UN 07/28/2019 NICOLA ODELL MD Ot N40. 0 BENIGN PROSTATIC HYPERPLASIA WITHOUT LOW 07/28/2019 NICOLA ODELL MD Ot R82. 71 BACTERIURIA 07/28/2019 NICOLA ODELL MD Ot Z79. 4 LONGTERM (CURRENT) USE OF INSULIN 07/28/2019 NICOLA ODELL MD Ot Z87. 01 PERSONAL HISTORY OF PNEUMONIA (RECURRENT 07/28/2019 NICOLA ODELL MD Ot Z95. 5 PRESENCE OF CORONARY ANGIOPLASTY IMPLANT 07/30/2019 VERENA LANCE MD Ot J44.9 CHRONIC OBSTRUCTIVE PULMONARY DISEASE, U 08/02/2019 NICOLA ODELL MD Ot E11. 40 TYPE 2 DIABETES MELLITUS WITH DIABETIC N 08/02/2019 NICOLA ODELL MD Ot E78. 00 PURE HYPERCHOLESTEROLEMIA, UNSPECIFIED 08/02/2019 NICOLA ODELL MD Ot F03. 90 UNSPECIFIED DEMENTIA WITHOUT BEHAVIORAL 08/02/2019 NICOLA ODELL MD Ot F32. 9 MAJOR DEPRESSIVE DISORDER, SINGLE EPISOD 08/02/2019 NICOLA ODELL MD Ot F41. 9 ANXIETY DISORDER, UNSPECIFIED 08/02/2019 NICOLA ODELL MD Ot G47. 30 SLEEP APNEA, UNSPECIFIED 08/02/2019 NICOLA ODELL MD Ot I10 ESSENTIAL (PRIMARY) HYPERTENSION 08/02/2019 NICOLA ODELL MD Ot I25. 10 ATHSCL HEART DISEASE OF [place] CORONARY 08/02/2019 NICOLA ODELL MD Ot J18. 9 PNEUMONIA, UNSPECIFIED ORGANISM 08/02/2019 NICOLA ODELL MD Ot J44. 1 CHRONIC OBSTRUCTIVE PULMONARY DISEASE W 08/02/2019 NICOLA ODELL MD Ot K21. 9 GASTRO-ESOPHAGEAL REFLUX DISEASE WITHOUT 08/02/2019 NICOLA ODELL MD Ot M19. 91 PRIMARY OSTEOARTHRITIS, UNSPECIFIED SITE 08/02/2019 NICOLA ODELL MD Ot M54. 9 DORSALGIA, UNSPECIFIED 08/02/2019 NICOLA ODELL MD Ot N31. 9 NEUROMUSCULAR DYSFUNCTION OF BLADDER, UN 08/02/2019 NICOLA ODELL MD Ot N40. 0 BENIGN PROSTATIC HYPERPLASIA WITHOUT LOW 08/02/2019 NICOLA ODELL MD Ot R82. 71 BACTERIURIA 08/02/2019 NICOLA ODELL MD Ot Z79. 4 WATER JET LOOM FIXER (CURRENT) USE OF INSULIN 08/02/2019 NICOLA ODELL MD Ot Z87. 01 PERSONAL HISTORY OF PNEUMONIA (RECURRENT 08/02/2019 NICOLA ODELL MD Ot Z95. 5 PRESENCE OF CORONARY ANGIOPLASTY IMPLANT 08/12/2019 VERENA LANCE MD Ot J44.9 CHRONIC OBSTRUCTIVE PULMONARY DISEASE, U 08/13/2019 SEJAL CHAMORRO APRN Ot J18.9 PNEUMONIA, UNSPECIFIED ORGANISM 09/23/2019 WILLIAM GARCIA Ot J44.9 CHRONIC OBSTRUCTIVE PULMONARY DISEASE, U 09/23/2019 WILLIAM GARCIA Ot R07.81 PLEURODYNIA 10/13/2019 WILLIAM GARCIA Ot J44.9 CHRONIC OBSTRUCTIVE PULMONARY DISEASE, U 10/13/2019 WILLIAM GARCIA Ot R07.81 PLEURODYNIA 11/03/2019 WILLIAM GARCIA Ot J44.9 CHRONIC OBSTRUCTIVE PULMONARY DISEASE, U 11/03/2019 WILLIAM GARCIA Ot R07.81 PLEURODYNIA Procedures Code Description Performed By Per dano [...] mg/dL 70-110 Automated blood complete blood count ( mogram) panel - 12/05/15 05:26 Blood leukocytes automated [...] culture - 08/25/16 19:52 Bacterial urine culture [id number] NRG COLONY COUNT 10,000/ML - 100,000/ML NRG [...] ABO+Rh group OP NRG Transfusion band number [id number] NRG Blood group antibody screen NEGATIVE NR [...] culture - 11/05/16 19:14 Bacterial urine culture [id number] NRG COLONY COUNT <10,000 NRG FTX;REPORTABLE 2 [...] A AND B ANTIGENS BY IA NRG Blood lactic acid measurement (moles/vol ume) [...] culture - 04/28/19 18:46 Bacterial urine culture [id number] NRG COLONY COUNT <10,000 NRG FTX;REPORTABLE NO [...] by glucometer (mas s/volume) 360 mg/dL 70-110 Complete urinalysis with reflex to cultu re - 07/28/19 05:20 Urine color determination YELLOW NRG Urine clarity determination SL CLOUDY N RG Urine pH measurement by test strip 6.0 [...] in urine sediment by light microsco py PRESENT NRG Casts detection in urine sediment by light microscopy NONE NRG Mucus detection in urine sediment by light microscopy SMALL NRG Complete urinalysis with reflex to culture YES NRG Amorphous sediment detection in urine sediment by ligh t microscopy MOD MARK URATES NRG Bacterial urine culture - 07/28/19 05:20 Bacterial urine culture [id number] NRG COLONY COUNT >100,000/ML NRG SUSCEPTIBILITY SUSCEPTIBILITY REPORTED 07/29 07:40 NRG RAPID ID PRELIM RAPID ID AT VCP 07/28 09:20 NRG ID CONFIRMATION RML CONFIRMED ID 07/28 13:50 NRG Dirithromycin susceptibility test by dis k diffusion - 07/28/19 05:20 Oxacillin susceptibility test by minimum inhibitory co ncentration > NRG Vancomycin susceptibility test by minimum inhibitory c oncentration 1 NRG Levofloxacin susceptibility test by minimum inhibitory concentration > NRG Rifampin susceptibility test by minimum inhibitory con centration <= NRG Cefazolin susceptibility test by minimum inhibitory co ncentration R NRG Nitrofurantoin susceptibility test by mi nimum inhibitory concentration <= NRG Penicillin G susceptibility test by minimum inhibitory concentration 0.5 NRG Complete blood count (CBC) with automate d white blood cell (WBC) differential - 07/28/19 05:24 Blood leukocytes automated count (number/volume) 7.1 10*3/uL 4.3-11.0 Blood erythrocytes automated count (number/volume) 4.82 10*6/uL 4.35-5.85 Venous blood hemoglobin measurement (mass/volume) 14.4 g/dL 13.3-17.7 Blood hematocrit (volume fraction) 43 % 40-54 Automated erythrocyte mean corpuscular volume 90 [ foz_us] 80-99 Automated erythrocyte mean corpuscular h emoglobin (mass per erythrocyte) 30 pg 25-34 Automated erythrocyte mean corpuscular h emoglobin concentration measurement (mass/volume) 33 g/dL 32-36 Automated erythrocyte distribution width ratio 14. 5 % 10.0- 14.5 Automated blood platelet count (count/volume) 149 10*3/uL 130-400 Automated blood platelet mean volume measurement 10.7 [foz_us] 7.4-10.4 Automated blood neutrophils/100 leukocytes 60 % 42-75 Automated blood lymphocytes/100 leukocytes 21 % 12-44 Blood monocytes/100 leukocytes 10 % 0-12 Automated blood eosinophils/100 leukocytes 9 % 0-10 Automated blood basophils/100 leukocytes 0 % 0-10 Blood neutrophils automated count (number/volume) 4.3 10*3 1.8-7.8 Blood lymphocytes automated count (number/volume) 1.5 10*3 1.0-4.0 Blood monocytes automated count (number/volume) 0. 7 10*3 0.0-1.0 Automated eosinophil count 0.7 10*3/uL 0 .0-0.3 Automated blood basophil count (count/volume) 0.0 10*3/uL 0.0-0.1 Comprehensive metabolic panel - 07/28/19 05:24 Serum or plasma sodium measurement (moles/volume) 138 mmol/L 135-145 Serum or plasma potassium measurement (moles/volume) 4.4 mmol/L 3.6-5.0 Serum or plasma chloride measurement (moles/volume) 98 mmol/L 98-107 Carbon dioxide 29 mmol/L 21-32 Serum or plasma anion gap determination (moles/volume) 11 mmol/L 5-14 Serum or plasma urea nitrogen measurement (mass/volume ) 25 mg/dL 7-18 Serum or plasma creatinine measurement (mass/volume) 1.63 mg/dL 0.60-1.30 Serum or plasma urea nitrogen/creatinine mass ratio 15 NRG Serum or plasma creatinine measurement w ith calculation of estimated glomerular filtration rate 42 NRG Serum or plasma glucose measurement (mass/volume) 147 mg/dL 70-105 Serum or plasma calcium measurement (mass/volume) 8.8 mg/dL 8.5-10.1 Serum or plasma total bilirubin measurement (mass/volu me) 0.5 mg/dL 0.1-1.0 Serum or plasma alkaline phosphatase gerda surement (enzymatic activity/volume) 70 U/L 40-136 Serum or plasma aspartate aminotransfera se measurement (enzymatic activity/volume) 14 U/L 5-34 Serum or plasma alanine aminotransferase measurement (enzymatic activity/volume) 14 U/L 0-55 Serum or plasma protein measurement (mass/volume) 6.4 g/dL 6.4-8.2 Serum or plasma albumin measurement (mass/volume) 3.7 g/dL 3.2-4.5 CALCIUM CORRECTED 9.0 mg/dL 8.5-10.1 Serum or plasma C reactive protein measu rement (mass/volume) - 07/28/19 05:24 Serum or plasma C reactive protein measurement (mass/v olume) 0.88 mg/dL 0.00-0.50 Serum or plasma lithium measurement (mol es/volume) - 07/28/19 05:24 BNP PT 27.6 pg/mL <100.0 Arterial blood gas measurement - 0 05:29 Blood pCO2 56 mm[Hg] 35-45 Blood pO2 117 mm[Hg] 79-93 Arterial blood bicarbonate measurement (moles/volume) 31 mmol/L 23-27 Arterial blood base excess by calculation 6.1 mmol /L -2.5-2.5 Arterial blood oxygen saturation measurement 97 % 94-100 * Inhaled oxygen flow rate 4L NRG Arterial blood pH measurement with patient temperature correction 7.37 7.37-7.43 Arterial blood carbon dioxide, total measurement (mole s/volume) 33.0 mmol/L 21.0-31.0 Body site RIGHT RADIAL NRG Assessment of wrist artery patency prior to arterial p uncture YES-POS NRG Setting of ventilation mode NO NR G Measurement of body temperature 37.0 NRG Influenza virus A and B antigen detectio n - 07/28/19 05:30 FLU RESULT NEGATIVE FOR INFLUENZA A AND B ANTIGENS BY IA NRG Complete blood count (CBC) with automate d white blood cell (WBC) differential - 11/16/19 15:39 Blood leukocytes automated count (number/volume) 8.7 10*3/uL 4.3-11.0 Blood erythrocytes automated count (number/volume) [...] 32-36 Automated erythrocyte distribution width ratio 14. 8 % 10.0- 14.5 Automated blood platelet count (count/volume) 154 10*3/uL 130-400 Automated blood platelet mean volume measurement 11.6 [foz_us] 7.4-10.4 Automated blood neutrophils/100 leukocytes 72 % 42-75 Automated blood lymphocytes/100 leukocytes 14 % 12-44 Blood monocytes/100 leukocytes 10 % 0-12 Automated blood eosinophils/100 leukocytes 4 % 0-10 Automated blood basophils/100 leukocytes 0 % 0-10 Blood neutrophils automated count (number/volume) 6.3 10*3 1.8-7.8 Blood lymphocytes automated count (number/volume) 1.2 10*3 1.0-4.0 Blood monocytes automated count (number/volume) 0. 9 10*3 0.0-1.0 Automated eosinophil count 0.3 10*3/uL 0 .0-0.3 Automated blood basophil count (count/volume) 0.0 10*3/uL 0.0-0.1 Blood lactic acid measurement (moles/vol ume) - 11/16/19 15:39 Blood lactic acid measurement (moles/volume) 1.61 mmol/L 0.50-2.00 Complete urinalysis with reflex to cultu re - 11/16/19 15:41 Urine color determination YELLOW NRG Urine clarity determination CLOUDY NR G Urine pH measurement by test strip 6.0 5-9 Specific gravity of urine by test strip 1.015 1.016-1.022 Urine protein assay by test strip, semi-quantitative TRACE NEGATIVE Urine glucose detection by automated test strip NE GATIVE NEGATIVE Erythrocytes detection in urine sediment by light micr oscopy TRACE-I NEGATIVE Urine ketones detection by automated test strip NE GATIVE NEGATIVE Urine nitrite detection by test strip NEGATIVE NEGATIVE Urine total bilirubin detection by test strip NEGA TIVE NEGATIVE Urine urobilinogen measurement by automated test strip (mass/volume) 0.2 mg/dL < = 1.0 Urine leukocyte esterase detection by dipstick 3+ NEGATIVE Automated urine sediment erythrocyte cou nt by microscopy (number/high power field) [HPF] NRG Automated urine sediment leukocyte count by microscopy (number/high power field) [HPF] NRG Bacteria detection in urine sediment by light microsco py LARGE NRG Squamous epithelial cells detection in u rine sediment by light microscopy RARE NRG Crystals detection in urine sediment by light microsco py NONE NRG Casts detection in urine sediment by light microscopy NONE NRG Mucus detection in urine sediment by light microscopy NEGATIVE NRG Complete urinalysis with reflex to culture CULTURE PENDING NR Comprehensive metabolic panel - 11/16/19 16:21 Serum or plasma sodium measurement (moles/volume) 135 mmol/L 135-145 Serum or plasma potassium measurement (moles/volume) 4.8 mmol/L 3.6-5.0 Serum or plasma chloride measurement [...] NRG Serum or plasma glucose measurement (mass/volume) 146 mg/dL 70-105 Serum or plasma calcium measurement (mass/volume) 8.8 mg/dL 8.5-10.1 Serum or plasma total bilirubin measurement (mass/volu me) 0.7 mg/dL 0.1-1.0 Serum or plasma alkaline phosphatase gerda surement (enzymatic activity/volume) 88 U/L 40-136 Serum or plasma aspartate aminotransfera se measurement (enzymatic activity/volume) 19 U/L 5-34 Serum or plasma alanine aminotransferase measurement (enzymatic activity/volume) 18 U/L 0-55 Serum or plasma protein measurement (mass/volume) 6.9 g/dL 6.4-8.2 Serum or plasma albumin measurement (mass/volume) 3.5 g/dL 3.2-4.5 CALCIUM CORRECTED 9.2 mg/dL 8.5-10.1 PROCALCITONIN (PCT) - 11/16/19 16:21 PROCALCITONIN (PCT) 0.10 ng/mL <0.10 Encounters ACCT No. Visit Date/Time Discharge Status Pt. Type Provider Facility Loc./Unit Complaint [id number] 09/19/2019 10:41:00 23:59:59 CLS Outpatient WILLIAM GARCIA [facility] RAD LEFT RIB PAIN [id number] 07/28/2019 05:16:00 08:57:00 DIS Emergency CASS UP, NICOLA Hurt [facility] ER PNUEMONIA,SOB [id number] 07/21/2019 11:17:00 23:59:59 CLS Outpatient SEJAL CHAMORRO APRN [facility] RAD PNEUMONIA [id number] 07/10/2019 09:28:00 23:59:59 CLS Outpatient VERENA LANCE MD [facility] RAD COPD, COUGH [id number] 04/28/2019 20:00:00 11:43:00 DIS Inpatient CARLOS COLUNGA DO, V [facility] 4TH COPD EXACERBATION WITH ACUTE BRONCHITIS [id number] 03/21/2019 13:35:00 23:59:59 CLS Outpatient JOHAN LAROSE MD [facility] RAD BILATERAL HYDRO [id number] 02/28/2019 08:06:00 23:59:59 CLS Outpatient JOHAN LAROSE MD [facility] RAD GROSS HEMATURIA [id number] 02/21/2019 12:09:00 23:59:59 CLS Outpatient VERENA LANCE MD [facility] RAD R THYROID NODULE [id number] 02/12/2019 15:18:00 23:59:59 CLS Outpatient VERENA LANCE MD [facility] RAD CHEST PAIN [id number] 10/07/2018 14:11:00 23:59:59 CLS Outpatient VERENA LANCE MD [facility] RAD CHEST PAIN,COPD [id number] 09/29/2018 17:36:00 20:06:00 DIS Emergency KANDICE DO, AMANDA K Vi a [facility] ER SOA [id number] 06/06/2017 06:43:00 13:20:00 DIS Outpatient SILAS HAINES MD [facility] CATH ABN STRESS TEST, CAD [id number] 05/30/2017 07:43:00 23:59:59 CLS Outpatient MARIA GUADALUPE CARRERA [facility] CARD I25.10 CAD [id number] 05/25/2017 11:47:00 018 23:59:59 CLS Outpatient MARIA GUADALUPE CARRERA [facility] CARD I25.10 CAD [id number] 11/05/2016 19:16:00 017 20:08:00 DIS Emergency KANDICE PACHECO AMANDA Jan Vi a [facility] ER CATHETER ISSUES [id number] 10/31/2016 06:14:00 017 13:20:00 DIS Outpatient JOHAN LAROSE MD [facility] SDC URINE RETENTION, NEUROG ENIC BLADDER, BPH [id number] 10/24/2016 14:21:00 017 16:00:00 DIS Outpatient JOHAN LAROSE MD [facility] PREOP TURP [id number] 09/28/2016 12:55:00 017 23:59:59 CLS Outpatient JOHAN LAROSE MD [facility] RAD HEMATURIA R31.9 [id number] 08/25/2016 18:30:00 017 20:42:00 DIS Emergency TREVOR MCCABE DO [facility] ER BLOOD IN URINE [id number] 07/24/2016 18:47:00 017 13:30:00 DIS Inpatient ALFRED BELL MD [facility] 4TH UTI,HYPONATREMIA,RENAL INSUFFICIENCY,GENERALIZED W [id number] 06/14/2016 19:50:00 017 06:50:00 DIS Outpatient SILAS HAINES MD [facility] SLEEP OBSTRUCTIVE SLEEP APNEA [id number] 04/28/2016 04:19:00 016 07:19:00 DIS Emergency JOANNA ANDREW MD [facility] ER SOA [id number] 04/08/2016 15:52:00 016 18:21:00 DIS Emergency JANESSA SMITH MD [facility] ER HTN [id number] 04/07/2016 20:57:00 22:20:00 DIS Emergency JOANNA ANDREW MD [facility] ER HEAD PAIN [id number] 03/22/2016 12:23:00 10:30:00 DIS Outpatient SILAS HAINES MD [facility] CATH ABN STRESS TEST,CP,HTN [id number] 03/20/2016 14:13:00 18:00:00 DIS Emergency TREVOR MCCABE DO [facility] ER WEAKNESS [id number] 03/13/2016 08:21:00 23:59:59 CLS Outpatient SILAS HAINES MD [facility] CARD CAD,CHEST PAIN SYNDROME ,HTN,HLP [id number] 03/09/2016 09:31:00 23:59:59 CLS Outpatient SILAS HAINES MD [facility] CARD CAD, CHEST PAIN SYNDROM E, HTN, HYPERLIPIDEMIA, [id number] 03/04/2016 11:10:00 14:35:00 DIS Emergency ALEXANDRAVANNESSA [facility] ER SOB [id number] 02/24/2016 18:24:00 21:34:00 DIS Emergency ALEENA LANCE MD [facility] ER CP [id number] 02/19/2016 10:40:00 12:50:00 DIS Inpatient JANESSA ROWAN MD [facility] 4TH ACUTE BRONCHITIS AND HY POXIA [id number] 12/03/2015 22:05:00 10:30:00 DIS Inpatient VERENA LANCE MD [facility] 4TH UTI,DEHYDRATION,ELECTRO LYTE IMBALANCE,COPD [id number] 06/03/2015 11:56:00 09:45:00 DIS Inpatient NAM MCCLAIN MD Via [facility] IRF PNA UTI SEVERE SEPSIS [id number] 11/19/2014 10:24:00 015 23:59:59 CLS Outpatient MARIA GUADALUPE CARRERA Via [facility] RAD CAD,COPD,HT N,HLP [id number] 04/15/2014 15:57:00 014 18:08:00 DIS Emergency JOANNA ANDREW MD Via [facility] ER SOA [id number] 04/06/2014 14:00:00 23:59:59 CLS Outpatient MARIA GUADALUPE CARRERA Via [facility] RAD CAD,COPD,HT N,HLP [id number] 09/13/2013 07:00:00 10:02:00 DIS Emergency AMANDA WOODSON DO Vi a [facility] ER POSS INSULIN RXN [id number] 07/11/2013 21:00:00 014 16:10:00 DIS Inpatient VERENA LANCE MD Via [facility] 4TH HYPONATREMIA, AMS, ARF, UTI [id number] 11/16/2019 16:11:00 Document Registration [id number] 01/26/2017 09:34:00 Document Registration [id number] 01/26/2017 09:34:00 Document Registration [id number] 01/26/2017 09:34:00 Document Registration [id number] 01/26/2017 09:34:00 Document Registration [id number] 01/26/2017 09:34:00 Document Registration [id number] 05/31/2015 12:47:[address] Inpatient VERENA LANCE MD Via [facility] [facility] UTI SEVERE SEPSIS [id number] 03/31/2014 14:33:00 Document Registration [id number] 03/31/2014 14:33:00 Document Registration [id number] 03/31/2014 14:33:00 Document Registration [id number] 03/31/2014 14:33:00 Document Registration [id number] 03/31/2014 14:33:00 Document Registration [id number] 03/31/2014 14:33:00 Document Registration [id number] 03/31/2014 14:33:00 Document Registration [id number] 03/31/2014 14:33:00 Document Registration [id number] 03/31/2014 14:33:00 Document Registration [id number] 03/31/2014 14:33:00 Document Registration [id number] 04/24/2012 08:10:00 Document Registration [id number] 01/29/2012 07:01:00 Document Registration [id number] 01/26/2012 08:08:00 Document Registration [id number] 08/23/2011 15:50:00 Document Registration [id number] 08/20/2011 09:50:00 Document Registration [id number] 08/16/2011 12:55:00 Document Registration [id number] 07/21/2011 19:05:00 Document Registration [id number] 01/09/2010 10:35:00 Document Registration [id number] 12/08/2009 15:37:00 Document Registration [id number] 06/29/2009 15:20:00 Document Registration [id number] 06/23/2009 21:00:00 Document Registration [id number] 06/21/2009 09:25:00 Document Registration [id number] 03/30/2009 14:56:00 Document Registration [id number] 12/10/2008 20:49:00 Document Registration [id number] 05/13/2008 07:30:00 Document Registration [id number] 10/10/2007 19:24:00 Document Registration [id number] 02/13/2006 12:59:00 Document Registration [id number] 09/29/2005 07:44:00 Document Registration [id number] 09/28/2005 09:15:00 Document Registration
[2019-11-16 18:05] VITALS: BP 170/88
--- NOTE | 2019-11-16 18:05 | NUR ---
GUALBERTO PARK admitted to room 423-1, with an admitting diagnosis of UTI AND WEAKNESS, on 11/16/19 from ED via [facility], accompanied by RN AND PCT.GUALBERTO PARK introduced to surroundings, call light, bed controls, phone, TV, temperature control, lights, meal times, smoking policy, visitor policy, side rail policy, bathrooms and showers. Patient Rights given to patient in the handbook. GUALBERTO PARK verbalizes understanding that [facility] is not responsible for the loss or damage to any personal effects or valuables that are kept in the patients posession during their hospitalization.
--- NOTE | 2019-11-16 18:40 | NUR ---
DR LAM NOTIFIED OF PTS DVT SCORE OF 7, PT'S C/O RT LEG PAIN WITH SCD ON, AND ELEVATED BLOOD PRESSURE AT 170/88. AWAITING DR BAGLEY. THIS RN WILL CALL [facility] TO GET MED REC FAXED TO US.
[2019-11-16 20:00] VITALS: BP 135/84
--- NOTE | 2019-11-16 20:40 | NUR ---
MED REC RECEIVED FROM [facility]. DR. LAM NOTIFIED. TRAZODONE 150 MG PO HS, METOPROLOL 50 MG PO BID, AND RISPERIDONE 2 MG PO BID RESTARTED PER DR. LAM'S ORDERS.
--- NOTE | 2019-11-16 21:50 | NUR ---
PT COMPLAINING OF LEG PAIN AND REQUESTING IBUPROFEN. DR. LAM NOTIFIED. NEW ORDERS RECEIVED FOR TYLENOL 650 MG Q4H PRN AND OXYCODONE IR 5-10 MG Q4H PRN.
[2019-11-16] MEDS ORDERED: WATER (STERILE) FOR INJECTION 10 ML ONE (22:15)
[2019-11-16] MEDS ORDERED: cefTRIAXone 1,000 MG IV (ROCEPHIN) VIAL ONE (22:15)
[2019-11-16] MEDS: risperiDONE 2 MG (RisperDAL) TAB PO SCH (22:41)
[2019-11-16] MEDS: traZODone 150 MG (DESYREL) TABLET PO SCH (22:42)
[2019-11-16] MEDS: meTOprolol TARTRATE 50 MG (LOPRESSOR) TAB PO SCH (22:42)
[2019-11-16] MEDS: cefTRIAXone 1,000 MG/SWFI 10 ML IV PUSH IV SCH ×2 (22:43)
[2019-11-16] MEDS: LACTATED RINGERS 1,000 ML IV SCH (22:43)
[2019-11-17] VITALS (8 sets, daily range): BP systolic 130–142; BP diastolic 65–95
--- NOTE | 2019-11-17 00:08 | NUR ---
MED REC COMPLETED AND REVIEWED PER [facility] REC[facility].
[2019-11-17] MEDS ORDERED: ONDA4TAB11 PO (00:51)
[2019-11-17] MEDS ORDERED: [UNRECOGNIZED DRUG - CODE] PO (00:51)
[2019-11-17] MEDS ORDERED: ISOS30TA3 PO (00:51)
[2019-11-17] MEDS ORDERED: RT-ALBUINH IH (00:51)
[2019-11-17] MEDS ORDERED: HYDR-83 PO (00:51)
[2019-11-17] MEDS ORDERED: RT-ALBUTEROL INHALER HFA (VENTOLIN HFA) 18 GM IH PRN (01:45)
[2019-11-17] MEDS: inSUlin ASPART (NovoLOG) 1 UNIT/0.01 ML (CHARGE PER UNIT) SC SCH ×4 (06:13→21:19)
[2019-11-17] MEDS: risperiDONE 2 MG (RisperDAL) TAB PO SCH ×2 (07:24→21:18)
[2019-11-17] MEDS: meTOprolol TARTRATE 50 MG (LOPRESSOR) TAB PO SCH ×2 (07:25→21:19)
[2019-11-17] MEDS ORDERED: TIOTROPIUM BROMIDE (SPIRIVA) 5'S INHALER IH SCH (08:00)
[2019-11-17] MEDS: LACTATED RINGERS 1,000 ML IV SCH (11:54)
[2019-11-17] MEDS ORDERED: CRAN450T9 PO (13:22)
[2019-11-17] MEDS ORDERED: METO50TA15 PO (13:22)
[2019-11-17] MEDS ORDERED: GUAI100G2 PO (13:42)
--- NOTE | 2019-11-17 13:43 | NUR ---
I USED THE RESIDENT MEDICATION ADMINISTRATION RECORD FROM THEIR FILE TO COMPLETE THE MED REC.
--- NOTE | 2019-11-17 14:24 | Physical Therapy Evaluation ---
PT Evaluation-General Medical Diagnosis Admission Date Nov 16, 2019 at 16:54 Medical Diagnosis: UTI/PUI Onset Date: Nov 16, 2019 Therapy Diagnosis Therapy Diagnosis: generalized weakness/debility Height/Weight Height (Feet): 5 Height (Inches): 9.00 Weight (Pounds): 260 Weight (Ounces): 0.0 Precautions Precautions/Isolations: Contact Isolation, Droplet Isolation, Fall Prevention Weight Bear Status Right Lower Extremity: Right Weight Bearing/Tolerated Left Lower Extremity: Left Weight Bearing/Tolerated Referral Physician: Cristel Reason for Referral: Evaluation/Treatment Medical History Pertinent Medical History: Arthritis, CAD, COPD, DM, Dementia, HTN, Neuropathy Current History EMS secondary to fall x 2 (per facility, patient was lowered to ground and did not have a "fall" from standing position) Reviewed History: Yes Social History Home: Assisted Living Prior Prior Level of Function SCALE: Activities may be completed with or without assistive devices. 1-Zvpjmzyxjz-nkmvtrp completes the activity by him/herself with no assistance from a helper. 5-Set-up or Clean-up Assistance-helper sets up or cleans up; patient completes a ctivity. Bly assists only prior to or following the activity. 4-Supervision or Touching Assistance-helper provides verbal cues and/or touching/steadying and/or contact guard assistance as patient completes activity. Assistance may be provided throughout the activity or intermittently. 3-Partial/Moderate Assistance-helper does LESS THAN HALF the effort. Bly lifts, holds or supports trunk or limbs, but provides less than half the effort. 2-Substantial/Maximal Assistance-helper does MORE THAN HALF the effort. Bly lifts or holds trunk or limbs and provides more than half the effort. 7-Pnxteonda-mrefoz does ALL the effort. Patient does none of the effort to complete the activity. Or, the assistance of 2 or more helpers is required for the patient to complete the activity. If activity was not attempted, code reason: 7-Patient Refused. 9-Not Applicable-not attempted and the patient did not perform the activity before the current illness, exacerbation or injury. 10-Not Attempted due to Environmental Limitations-(lack of equipment, weather restraints, etc.). 88-Not Attempted due to Medical Conditions or Safety Concerns. Bed Mobility: 4 Transfers (B,C,W/C): 4 Gait: 4 Stairs: 9 Indoor Mobility (Ambulation): Needed Some Help Stairs: Not Applicalbe Prior Devices Use: Walker PT Evaluation-Current Subjective Patient states, "I can't do anything." Agrees to try. Pain Numeric Pain Scale: 10-Worst Possible Pain Location: Right Location Body Site: Knee Pain Description: Acute Comment: FLACC Objective Patient Orientation: Confused Attachments: Oxygen, Shafer Catheter, IV ROM/Strength ROM Lower Extremities bilateral LE WFL Strength Lower Extremities 3-/5 grossly bilateral LE Integumentary/Posture Integumentary refer to nursing notes Bladder Incontinence: Shafer Cath Posture WFL Neuromuscular (Tone, Coordination, Reflexes) diminished coordination due to weakness Sensory Vision: Functional Hearing: Impaired Sensation Right Lower Extremit: Impaired Sensation Left Lower Extremity: Impaired Transfers Roll Left to Right (QC): 1 Sit to Lying (QC): 1 Lying to Sitting/Side of Bed(Q: 1 Sit to Stand (QC): 88 (due to weakness and inability to initiate task) Gait Does the Patient Walk?: No and Walking Goal IS indicated Gait Assistive Device: FWW Balance Sitting Static: Fair Sitting Dynamic: Fair Assessment/Needs 74 y.o. male, will benefit from skilled PT to address functional strength and mobility to improve current LOF. Patient currently requires dependent assist x 2 with all mobility. Rehab Potential: Guarded PT Short Term Goals Short Term Goals Time Frame: Nov 29, 2019 Roll Left & Right: 3 Sit to lyin Lying to sitting on side of be: 3 Sit to stand: 3 Chair/sez-vf-cyhsb transfer: 3 PT Halfway Goals Strike Plate Attacher Goals PT Strike Plate Attacher Goals Time Frame: Dec 05, 2019 Roll Left & Right (QC): 4 Sit to Lying (QC): 4 Lying-Sitting on Side/Bed(QC): 4 Sit to Stand (QC): 4 Chair/Tlb-hh-Mmdnk Xfer(QC): 4 Toilet Transfer (QC): 4 Does the Patient Walk: Yes Walk 10 feet (QC): 4 Walk 50ft with 2 Turns (QC): 4 PT Plan Problem List Problem List: Activity Tolerance, Functional Strength, Safety, Balance, Gait, Transfer, Bed Mobility Treatment/Plan Treatment Plan: Continue Plan of Care Treatment Plan: Bed Mobility, Education, Functional Activity Mehdi, Functional Strength, Gait, Safety, Therapeutic Exercise, Transfers Treatment Duration: Dec 05, 2019 Frequency: 5 times per week Estimated Hrs Per Day: .25 hour per day Time/GCodes Time In: 1315 Time Out: 1335 Total Billed Treatment Time: 20 Total Billed Treatment 1 visit EVMod 20 min SHERLY BRADLEY PT Nov 17, 2019 14:24
--- NOTE | 2019-11-17 14:43 | History & Physical-Hospitalist ---
History of Present Illness HPI/Chief Complaint Pt is a 74yoCM HTN, Dementia, COPD, IDDMII who presented to the ER due to falls. Apparently he fell twice over the weekend but did not hit his head. he complained of right sided leg pain to the Er but complained of left leg pain to me. He has generally been weaker over the past few days/weeks. He reports he is not feeling well but does not give any specific reason why. Due to a history of a fever and a new cough he was tested for COVID and that is pending. He was found to have a UTI and LILIANA and was admitted for IV abx. Source: patient Exam Limitations: clinical condition Date Seen 11/17/19 Time Seen by a Provider: 14:38 Attending Physician Eneida Fam MD PCP Bhaskar Alcantara MD Referring Physician Date of Admission Nov 16, 2019 at 16:54 Home Medications & Allergies Home Medications Reviewed patient Home Medication Reconciliation performed by pharmacy medication reconciliations insulator technician and/or nursing. Patients Allergies have been reviewed. Allergies Allergies Coded Allergies Penicillins (Unverified Allergy, Mild, HIVES, 11/16/19) duloxetine HCl (Verified Allergy, Mild, 11/16/19) Past Ymcenxs-Ebvyij-Mbkrrb Hx Past Med/Social Hx: Reviewed Nursing Past Med/Soc Hx Patient Social History Marrital Status: Alcohol Use: Denies Use Recreational Drug Use: No Former Smoker, Quit: Jun 06, 2012 Type Used: Cigarettes 2nd Hand Smoke Exposure: No Recent Foreign Travel: No Contact w/other who traveled: No Recent Hopitalizations: No Recent Infectious Disease Expo: No Immunizations Up To Date Date of Pneumonia Vaccine: Mar 07, 2010 Date of Influenza Vaccine: Mar 07, 2017 Seasonal Allergies Seasonal Allergies: No Past Medical History Surgeries: Cardiac, Coronary Stent, Eye Surgery, Transurethral Resection Respiratory: COPD, Pneumonia, Sleep Apnea Currently Using CPAP: Yes Cardiac: Chronic Edema/Swelling, Coronary Artery Disease, High Cholesterol, Hypertension Neurological: Dementia, Neuropathy Reproductive: No Sexually Transmitted Disease: No HIV/AIDS: No Genitourinary: Benign Prostatic Hyperpl, Prostate Problems, Neurogenic Bladder, UTI-Chronic Gastrointestinal: Gastroesophageal Reflux, Chronic Constipation Musculoskeletal: Arthritis, Chronic Back Pain Endocrine: Diabetes, Insulin dep HEENT: Cataract Hearing Impairment: Hard of Hearing Psychosocial: Sleep Difficulties, Anxiety, Depression History of Blood Disorders: No Adverse Reaction to Blood Schmidt: No Family History Reviewed Nursing Family Hx Family history: Hypertension 03 FATHER Stroke 03 MOTHER No Pertinent Family Hx PSH: -CATARACT SURGERY -TURP 10/31/[address] LAROSE -CARDIAC CATHS--STENT X 1--LAST CATH 05/2017--PATENT STENT, NON-OCCLUSIVE CAD, NO INTERVENTION -CHOLECYSTETCOMY Review of Systems Constitutional: No chills, No diaphoresis; fever, malaise EENTM: no symptoms reported Respiratory: cough; No short of breath Cardiovascular: no symptoms reported Gastrointestinal: no symptoms reported Genitourinary: other (chronic indwelling brady) Musculoskeletal: no symptoms reported Skin: no symptoms reported Psychiatric/Neurological: No Symptoms Reported Physical Exam Physical Exam Vital Signs Vital Signs - First Documented 11/16/19 20:00 FiO2 95 Capillary Refill : Less Than 3 Seconds Height, Weight, BMI Height: 5'9.00" Weight: 260lbs. 0.0oz. 117.870841qb; 37.79 BMI Method:Stated General Appearance: No Apparent Distress, Chronically ill, Obese HEENT: PERRL/EOMI, Moist Mucous Membranes Neck: Normal Inspection, Supple Respiratory: Lungs Clear, No Accessory Muscle Use, No Respiratory Distress Cardiovascular: Regular Rate, Rhythm, No Murmur Gastrointestinal: Normal Bowel Sounds, Non Tender, Soft Extremity: No Calf Tenderness, Other (left leg extrenal rotated and appears shorter) Neurologic/Psychiatric: Alert, Oriented x3 Skin: Normal Color, Warm/Dry Results Results/Procedures Labs Laboratory Tests 11/16/19 15:39 11/16/19 16:21 Patient resulted labs reviewed. Imaging: Reviewed Imaging Report Assessment/Plan Admission Diagnosis UTI Weakness Continue Rocephin Await sensitivities PT/OT as able Referral Rn consulted, may need SNF on DC Left leg pain Hip XR ordered Resume home hydrocodone CKD Creatinine up slightly from his baseline Continue IVF and hold nephrotoxic meds IDDMII Resume home insulin SSI HTN HLD Resume home meds Admission Status: Inpatient Order (span 2 midnights) Reason for Inpatient Admission: IV abx Clinical Quality Measures DVT/VTE Risk/Contraindication: Risk Factor Score Per Nursin RFS Level Per Nursing on Admit: 4+=Very High LUPE ALVES MD Nov 17, 2019 14:43
[2019-11-17] MEDS: UMECLIDINIUM BROMIDE (INCRUSE ELLIPTA) 7'S IH SCH (14:44)
[2019-11-17] MEDS ORDERED: GUAIFENESIN 100 MG PO PRN (14:45)
[2019-11-17] MEDS ORDERED: HYDROcodone/APAP 5 MG/325 MG (LORTAB) TAB PO PRN (14:45)
[2019-11-17] MEDS ORDERED: guaiFENesin SYRUP 100 MG/5 ML 10 ML (ROBITUSSIN SF) PO PRN (15:45)
[2019-11-17] MEDS: ACETAMINOPHEN 325 MG TABLET PO PRN ×2 (15:49→15:51)
[2019-11-17] MEDS: BETHANECHOL 25 MG (URECHOLINE) TAB PO SCH ×2 (15:51→21:18)
--- NOTE | 2019-11-17 15:53 | Diagnostic Imaging Report ---
INDICATION: Fall and right hip pain. TIME OF EXAM: 03:33 p.m. FINDINGS: Portable single view of the right hip was obtained. Femoroacetabular alignment is normal. Joint space is fairly well maintained. Femoral head and neck appear to be intact. No fractures are identified. IMPRESSION: No acute bony abnormality is detected. Dictated by: Dictated on workstation # [id number]
[2019-11-17] MEDS ORDERED: BETHANECHOL CHLORIDE 50 MG PO SCH (17:00)
[2019-11-17] MEDS ORDERED: [UNRECOGNIZED DRUG - OTHER] SQ SCH (21:00)
[2019-11-17] MEDS ORDERED: SIMvastatin 10 MG (ZOCOR) TAB PO SCH (21:00)
[2019-11-17] MEDS ORDERED: INSULIN GLARGINE HUM REC ANLOG 48 UNIT SQ SCH (21:00)
[2019-11-17] MEDS: traZODone 150 MG (DESYREL) TABLET PO SCH (21:18)
[2019-11-17] MEDS: ENOXAPARIN 40 MG/0.4 ML (LOVENOX) SYR SC SCH (21:19)
[2019-11-17] MEDS: NYSTATIN CREAM (MYCOSTATIN) 30 GM TUBE TP SCH (21:20)
[2019-11-17] MEDS: RT-ALBUTEROL INHALER HFA (VENTOLIN HFA) 18 GM IH SCH (22:12)
[2019-11-17] MEDS: cefTRIAXone 1,000 MG/SWFI 10 ML IV PUSH IV SCH ×2 (22:37)
[2019-11-18 00:36] VITALS: BP 161/72
[2019-11-18] MEDS: LACTATED RINGERS 1,000 ML IV SCH (00:51)
[2019-11-18 05:11] VITALS: BP 168/78
[2019-11-18] MEDS: BETHANECHOL 25 MG (URECHOLINE) TAB PO SCH ×4 (05:17→21:54)
[2019-11-18] MEDS: ACETAMINOPHEN 325 MG TABLET PO PRN (05:17)
[2019-11-18] MEDS: inSUlin ASPART (NovoLOG) 1 UNIT/0.01 ML (CHARGE PER UNIT) SC SCH ×4 (05:29→21:59)
[2019-11-18 05:42] LABS: HEMOGLOBIN 14.7 G/DL (13.3-17.7); MEAN PLATELET VOLUME 10.8 FL (7.4-10.4); RED CELL DISTRIBUTION WIDTH 14.1 % (10.0-14.5); WHITE BLOOD COUNT 8.5 10^3/uL (4.3-11.0)
[2019-11-18 06:00] LABS: POTASSIUM 4.3 MMOL/L (3.6-5.0)
[2019-11-18 06:01] LABS: CALCIUM 8.7 MG/DL (8.5-10.1)
[2019-11-18 06:06] LABS: CREATININE SERUM 1.37 MG/DL (0.60-1.30)
[2019-11-18] MEDS: RT-ALBUTEROL INHALER HFA (VENTOLIN HFA) 18 GM IH SCH ×4 (07:15→19:01)
[2019-11-18] MEDS: UMECLIDINIUM BROMIDE (INCRUSE ELLIPTA) 7'S IH SCH (07:16)
[2019-11-18] MEDS: meTOprolol TARTRATE 50 MG (LOPRESSOR) TAB PO SCH ×2 (07:26→21:58)
[2019-11-18] MEDS: PANTOPRAZOLE 40 MG (PROTONIX) TAB PO SCH (07:27)
[2019-11-18] MEDS: ISOSORBIDE MONONITRATE 30 MG (IMDUR) TAB PO SCH (07:27)
[2019-11-18] MEDS: amLODIPine 10 MG (NORVASC) TAB PO SCH (07:29)
[2019-11-18] MEDS: risperiDONE 2 MG (RisperDAL) TAB PO SCH ×2 (07:29→21:53)
[2019-11-18] MEDS: NYSTATIN CREAM (MYCOSTATIN) 30 GM TUBE TP SCH ×3 (07:30→22:01)
[2019-11-18 08:25] VITALS: BP 162/62
[2019-11-18] MEDS ORDERED: NON-FORMULARY MEDICATION 1 EA EA (Bupropion HCl (Wellbutrin Xl) 300 MG) PO SCH (09:00)
--- NOTE | 2019-11-18 09:43 | Physical Therapy Daily Note ---
PT Daily Note-Current Subjective Patient is much more alert today and agrees to PT. Pain Numeric Pain Scale: 5-Moderate Pain Location: Right Location Body Site: Knee Pain Description: Acute Comment: FLACC Mental Status Patient Orientation: Confused Attachments: Oxygen, Shafer Catheter, IV Transfers SCALE: Activities may be completed with or without assistive devices. 1-Tmnaqnlqku-aexwqdm completes the activity by him/herself with no assistance from a helper. 5-Set-up or Clean-up Assistance-helper sets up or cleans up; patient completes activity. Ophiem assists only prior to or following the activity. 4-Supervision or Touching Assistance-helper provides verbal cues and/or touching/steadying and/or contact guard assistance as patient completes activity. Assistance may be provided throughout the activity or intermittently. 3-Partial/Moderate Assistance-helper does LESS THAN HALF the effort. Ophiem lifts, holds or supports trunk or limbs, but provides less than half the effort. 2-Substantial/Maximal Assistance-helper does MORE THAN HALF the effort. Ophiem lifts or holds trunk or limbs and provides more than half the effort. 5-Nuywkykoh-tcvnys does ALL the effort. Patient does none of the effort to complete the activity. Or, the assistance of 2 or more helpers is required for the patient to complete the activity. If activity was not attempted, code reason: 7-Patient Refused. 9-Not Applicable-not attempted and the patient did not perform the activity before the current illness, exacerbation or injury. 10-Not Attempted due to Environmental Limitations-(lack of equipment, weather restraints, etc.). 88-Not Attempted due to Medical Conditions or Safety Concerns. Lying to Sitting/Side of Bed(Q: 2 Sit to Stand (QC): 2 (x 3 sets to FWW) Chair/Cbm-ki-Rqaca Xfer(QC): 2 unable to utilize FWW for bed to recliner transfer requiring PT and guidance of RN for safe SPT bed to chair. Weight Bearing Right Lower Extremity: Right Weight Bearing/Tolerated Left Lower Extremity: Left Weight Bearing/Tolerated Exercises Supine Ex: Ankle pumps, Heel Slides, Straight leg raise Supine Reps: 12 (AAROM) Seated Therapy Exercises: Ankle pumps, Long arc quads Seated Reps: 12 (AAROM) Assessment Patient continues to requires max assistance with all mobility and is currently a feeder per nursing. PT to address functional strength and mobility as tolerated by patient. PT Short Term Goals Short Term Goals Time Frame: Nov 29, 2019 Roll Left & Right: 3 Sit to lyin Lying to sitting on side of be: 3 Sit to stand: 3 Chair/xzl-fw-sbnzu transfer: 3 PT Human Resources Communications Manager Goals Human Resources Communications Manager Goals PT Human Resources Communications Manager Goals Time Frame: Dec 05, 2019 Roll Left & Right (QC): 4 Sit to Lying (QC): 4 Lying-Sitting on Side/Bed(QC): 4 Sit to Stand (QC): 4 Chair/Thb-jt-Mwfrl Xfer(QC): 4 Toilet Transfer (QC): 4 Does the Patient Walk: Yes Walk 10 feet (QC): 4 Walk 50ft with 2 Turns (QC): 4 PT Plan Treatment/Plan Treatment Plan: Continue Plan of Care Treatment Plan: Bed Mobility, Education, Functional Activity Mehdi, Functional Strength, Gait, Safety, Therapeutic Exercise, Transfers Treatment Duration: Dec 05, 2019 Frequency: 5 times per week Estimated Hrs Per Day: .25 hour per day Time/GCodes Time In: 836 Time Out: 859 Total Billed Treatment Time: 23 Total Billed Treatment 1 visit FA 13 min EX 10 min SHERLY BRADLEY PT Nov 18, 2019 09:43
--- NOTE | 2019-11-18 10:45 | Progress Note - Hospitalist ---
Subjective HPI/CC On Admission Date Seen by Provider: Nov 18, 2019 Time Seen by Provider: 10:34 Pt is a 74yoCM HTN, Dementia, COPD, IDDMII who presented to the ER due to falls. Apparently he fell twice over the weekend but did not hit his head. he complained of right sided leg pain to the Er but complained of left leg pain to me. He has generally been weaker over the past few days/weeks. He reports he is not feeling well but does not give any specific reason why. Due to a history of a fever and a new cough he was tested for COVID and that is pending. He was found to have a UTI and LILIANA and was admitted for IV abx. Subjective/Events-last exam Pt reports still feeling just "ok." New specific complaints. Had complained to nursing staff about right knee pain. When I asked where his pain was he stated it was his left leg. I called and discussed with his who is agreeable to SNF placement if needed and states he is normally not confused. Focused Exam Lactate Level 11/16/19 15:39: Lactic Acid Level 1.61 Objective Exam Vital Signs Vital Signs Date Time Temp Pulse Resp B/P (MAP) Pulse Ox O2 Delivery O2 Flow Rate FiO2 11/18/19 10:25 Nasal Cannula 3.00 95 11/18/19 08:25 37.6 77 16 162/62 (95) 91 Capillary Refill : Less Than 3 SecondsLess Than 3 Seconds General Appearance: Chronically ill, Obese Respiratory: Lungs Clear, No Respiratory Distress Cardiovascular: Regular Rate, Rhythm, No Murmur Gastrointestinal: Normal Bowel Sounds Extremity: Other (nontender knee bilaterally, no deformity) Neurologic/Psychiatric: Alert, Other (oriented to major details) Results/Procedures Lab Laboratory Tests 11/18/19 05:18 Patient resulted labs reviewed. Imaging: Reviewed Imaging Report Assessment/Plan Assessment and Plan Assess & Plan/Chief Complaint UTI Weakness Continue Rocephin per sensitivities PT/OT as able Wedger consulted, may need SNF on DC Left leg pa Right knee pain Hip XR negative Right knee XR ordered Resume home hydrocodone CKD Creatinine improving Decrease IVF and hold nephrotoxic meds IDDMII Continue home insulin SSI HTN HLD Continue home meds Clinical Quality Measures DVT/VTE Risk/Contraindication: Risk Factor Score Per Nursin RFS Level Per Nursing on Admit: 4+=Very High LUPE ALVES MD Nov 18, 2019 10:45
--- NOTE | 2019-11-18 11:43 | NUR ---
CM/SS: Telephone call to Yvette Meyers RN as to level of function for a pt to be able to return. She reports that pt will be able to return regardless as Dick the pt has been there forever and yes they would be taking him back. This worker shared that he has been a two person assist and that physical therapy has been working with him. She also reports that [facility], Physical Therapy has been working with pt at their facility prior to his going into the hospital. This worker thanked the staff for the information. This worker will follow up.
[2019-11-18 11:55] VITALS: BP 120/74
--- NOTE | 2019-11-18 12:33 | Physician Query Clarification ---
PQ-Link Infection to Dev/Proc Admission/Discharge Admission Date: Nov 16, 2019 at 16:54 Discharge Date: The medical record reflects the following clinical scenario: Dr. Mullins, History/Risk Factors: UTI Chronic indwelling brady catheter Clinical Findings:UA showing: Ur specific gravity 1.015, Ur protein-trace, Ur leukocyte esterase 3+,Ur WBC 25-50, Urine bacteria Large. Urine culture: >100.000/ML Klebsiella Pneumoniae. Treatment: IV Rocephin Question: Can you specify if the UTI is due to/associated with chronic indwelling brady catheter? Please document a response in Progress Note or Discharge Summary. 1. Yes - UTI is due to/associated with chronic indwelling brady catheter. 2. No - UTI is not due to/associated with chronic indwelling brady catheter. 3. Other, with explanation of the clinical findings. 4. Clinically undetermined, no explanation for the clinical findings. PHYSICIAN RESPONSE Specify if infection: 1 Please remember a lack of response to the above will prompt a phone page by CDI/Coding staff. In responding to this query, please exercise your independent professional judgment. The purpose of this communication is to more accurately reflect the complexity of your patients condition. The fact that a question is asked does not imply that any particular answer is desired or expected. Thank you for your timely response to this clarification. Requestors name: Amelie Ridley [facility] Phone # ext [phone] or [phone] THIS PHYSICIAN QUERY FORM IS A PERMANENT PART OF THE MEDICAL RECORD AMELIE RIDLEY Nov 18, 2019 12:33 LUPE MULLINS MD Nov 19, 2019 14:03
--- NOTE | 2019-11-18 12:39 | Physician Query Clarification ---
PQ-Further Specificity Admission/Discharge Admission Date: Nov 16, 2019 at 16:54 Discharge Date: The medical record reflects the following clinical scenario: Dr. Mullins, History/Risk Factors: UTI Chronic indwelling brady catheter Clinical Findings: Urine culture: >100,000/ML Klebsiella Pneumoniae Treatment:IV Rocephin. Question: Can you further specify UTI per the clinical indicators above? Please document a response in the Progress Notes or Discharge Summary. 1. UTI due to Klebsiella Pneumoniae. 2. UTI due to other organism (please specify organism). 3. Other, with explanation of the clinical findings. 4. Clinically undetermined, no explanation for the clinical findings. PHYSICIAN RESPONSE Can you specify per above: 1 Please remember a lack of response to the above will prompt a phone page by CDI/Coding staff. In responding to this query, please exercise your independent professional judgment. The purpose of this communication is to more accurately reflect the complexity of your patients condition. The fact that a question is asked does not imply that any particular answer is desired or expected. Thank you for your timely response to this clarification. Requestors name: Amelie Ridley [facility] Phone # ext [phone] or [phone] THIS PHYSICIAN QUERY FORM IS A PERMANENT PART OF THE MEDICAL RECORD AMELIE RIDLEY Nov 18, 2019 12:39 LUPE MULLINS MD Nov 19, 2019 14:01
--- NOTE | 2019-11-18 12:45 | Diagnostic Imaging Report ---
INDICATION: Pain status post injury. COMPARISON: None. FINDINGS: Frontal and lateral views of the right knee were obtained. There is moderate suprapatellar joint effusion, but no underlying acute osseous abnormality seen. Joint spaces are maintained. Chondrocalcinosis is also noted. No unexpected radiopaque foreign bodies are identified. IMPRESSION: 1. Moderate suprapatellar joint effusion, but no radiographic evidence of acute fracture or dislocation of the right knee. Cross-sectional imaging may be of benefit for further evaluation, if indicated. 2. Chondrocalcinosis. This may be degenerative in nature, but may also be seen with CPPD. Dictated by: Dictated on workstation # [id number]
--- NOTE | 2019-11-18 12:46 | Physician Query Clarification ---
PQ-Further Specificity Admission/Discharge Admission Date: Nov 16, 2019 at 16:54 Discharge Date: The medical record reflects the following clinical scenario: History/Risk Factors: Chronic kidney disease UTI Hypertension Clinical Findings: Creatinine 1.95, BUN 23, estimated GFR 34. Treatment: IV Lactated Ringers 1,000ml@ 0mls/hr wide open. LILIANA and chronic kidney disease were documented in the record. Question: Can you further specify kidney disease per the clinical indicators above? Please document a response in the Progress Notes or Discharge Summary. 1. Acute kidney injury with chronic kidney disease. 2. Chronic kidney disease only. 3. Other, with explanation of the clinical findings. 4. Clinically undetermined, no explanation for the clinical findings. PHYSICIAN RESPONSE Can you specify per above: 1 Please remember a lack of response to the above will prompt a phone page by CDI/Coding staff. In responding to this query, please exercise your independent professional judgment. The purpose of this communication is to more accurately reflect the complexity of your patients condition. The fact that a question is asked does not imply that any particular answer is desired or expected. Thank you for your timely response to this clarification. Requestors name: Amelie Ridley [facility] Phone # ext [phone] or [phone] THIS PHYSICIAN QUERY FORM IS A PERMANENT PART OF THE MEDICAL RECORD AMELIE RIDLEY Nov 18, 2019 12:46 LUPE ALVES MD Nov 19, 2019 14:00
[2019-11-18 16:00] VITALS: BP 156/79
[2019-11-18 20:00] VITALS: BP 135/88
[2019-11-18] MEDS: traZODone 150 MG (DESYREL) TABLET PO SCH (21:53)
[2019-11-18] MEDS: ENOXAPARIN 40 MG/0.4 ML (LOVENOX) SYR SC SCH (21:53)
[2019-11-18] MEDS: cefTRIAXone 1,000 MG/SWFI 10 ML IV PUSH IV SCH ×2 (21:53)
[2019-11-18] MEDS: buPROPion SR 150 MG (WELLBUTRIN SR) TAB PO SCH (21:54)
[2019-11-19 00:52] VITALS: BP 140/67
[2019-11-19 05:59] LABS: HEMOGLOBIN 14.2 G/DL (13.3-17.7); MEAN PLATELET VOLUME 10.2 FL (7.4-10.4); RED CELL DISTRIBUTION WIDTH 14.4 % (10.0-14.5); WHITE BLOOD COUNT 9.3 10^3/uL (4.3-11.0)
[2019-11-19 06:15] LABS: POTASSIUM 3.9 MMOL/L (3.6-5.0)
[2019-11-19 06:16] LABS: CALCIUM 8.7 MG/DL (8.5-10.1)
[2019-11-19 06:20] LABS: CREATININE SERUM 1.45 MG/DL (0.60-1.30)
[2019-11-19] MEDS: inSUlin ASPART (NovoLOG) 1 UNIT/0.01 ML (CHARGE PER UNIT) SC SCH ×2 (06:23→11:29)
[2019-11-19] MEDS: BETHANECHOL 25 MG (URECHOLINE) TAB PO SCH ×2 (06:39→11:29)
[2019-11-19] MEDS: UMECLIDINIUM BROMIDE (INCRUSE ELLIPTA) 7'S IH SCH (06:55)
[2019-11-19] MEDS: RT-ALBUTEROL INHALER HFA (VENTOLIN HFA) 18 GM IH SCH ×2 (06:55→11:09)
[2019-11-19] MEDS: risperiDONE 2 MG (RisperDAL) TAB PO SCH (07:56)
[2019-11-19] MEDS: PANTOPRAZOLE 40 MG (PROTONIX) TAB PO SCH (07:57)
[2019-11-19] MEDS: buPROPion SR 150 MG (WELLBUTRIN SR) TAB PO SCH (07:57)
[2019-11-19] MEDS: NYSTATIN CREAM (MYCOSTATIN) 30 GM TUBE TP SCH (07:58)
[2019-11-19 08:00] VITALS: BP 128/60
[2019-11-19] MEDS: meTOprolol TARTRATE 50 MG (LOPRESSOR) TAB PO SCH (08:01)
[2019-11-19] MEDS: amLODIPine 10 MG (NORVASC) TAB PO SCH (08:01)
[2019-11-19] MEDS: ISOSORBIDE MONONITRATE 30 MG (IMDUR) TAB PO SCH (08:01)
--- NOTE | 2019-11-19 10:01 | Physical Therapy Daily Note ---
PT Daily Note-Current Subjective Pt presents supine in bed upon arrival, agreeable to PT treatment at this time. Appearance Following treatment, pt is in chair with BLE elevated. REPORTS ANALYSIS MANAGER in room to complete bed bath at this time. Mental Status Patient Orientation: Person, Place Attachments: Oxygen, Shafer Catheter Transfers SCALE: Activities may be completed with or without assistive devices. 8-Zakbhdzgbe-pzgppnq completes the activity by him/herself with no assistance from a helper. 5-Set-up or Clean-up Assistance-helper sets up or cleans up; patient completes activity. Alto assists only prior to or following the activity. 4-Supervision or Touching Assistance-helper provides verbal cues and/or touching/steadying and/or contact guard assistance as patient completes activity. Assistance may be provided throughout the activity or intermittently. 3-Partial/Moderate Assistance-helper does LESS THAN HALF the effort. Alto lifts, holds or supports trunk or limbs, but provides less than half the effort. 2-Substantial/Maximal Assistance-helper does MORE THAN HALF the effort. Alto lifts or holds trunk or limbs and provides more than half the effort. 3-Xbvqcrnvi-oqejva does ALL the effort. Patient does none of the effort to complete the activity. Or, the assistance of 2 or more helpers is required for the patient to complete the activity. If activity was not attempted, code reason: 7-Patient Refused. 9-Not Applicable-not attempted and the patient did not perform the activity before the current illness, exacerbation or injury. 10-Not Attempted due to Environmental Limitations-(lack of equipment, weather restraints, etc.). 88-Not Attempted due to Medical Conditions or Safety Concerns. Roll Left & Right (QC): 1 Lying to Sitting/Side of Bed(Q: 1 Sit to Stand (QC): 2 Chair/Oxs-as-Rvibz Xfer(QC): 1 Pt dependent to sit EOB, requiring 2 person assist. Pt attempts to stand at EOB requiring 2 person assist from elevated bed, pt unable to achieve terminal upright position and has to return to sitting after 3 seconds. Pt then transferred to chair by sit to stand lift. Weight Bearing Right Lower Extremity: Right Weight Bearing/Tolerated Left Lower Extremity: Left Weight Bearing/Tolerated Exercises Seated Therapy Exercises: Ankle pumps, Long arc quads Assessment Current Status: Fair Progress Pt requiring max A x 2 for all transfers. Will continue to progress pt as tolerated. PT Short Term Goals Short Term Goals Time Frame: Nov 29, 2019 Roll Left & Right: 3 Sit to lyin Lying to sitting on side of be: 3 Sit to stand: 3 Chair/lfl-qo-ptzlr transfer: 3 PT Shelter Goals Moveman Goals PT Moveman Goals Time Frame: Dec 05, 2019 Roll Left & Right (QC): 4 Sit to Lying (QC): 4 Lying-Sitting on Side/Bed(QC): 4 Sit to Stand (QC): 4 Chair/Fjj-mj-Ffnno Xfer(QC): 4 Toilet Transfer (QC): 4 Does the Patient Walk: Yes Walk 10 feet (QC): 4 Walk 50ft with 2 Turns (QC): 4 PT Plan Problem List Problem List: Activity Tolerance, Functional Strength, Safety, Balance, Gait, Transfer, Bed Mobility Treatment/Plan Treatment Plan: Continue Plan of Care Treatment Plan: Bed Mobility, Education, Functional Activity Mehdi, Functional Strength, Gait, Safety, Therapeutic Exercise, Transfers Treatment Duration: Dec 05, 2019 Frequency: 5 times per week Estimated Hrs Per Day: .25 hour per day Time/GCodes Time In: 906 Time Out: 920 Total Billed Treatment Time: 14 Total Billed Treatment 1 visit 1 FA (14 min) DAVID OROURKE PT Nov 19, 2019 10:01
--- NOTE | 2019-11-19 10:16 | Discharge Summary ---
Diagnosis/Chief Complaint Date of Admission Nov 16, 2019 at 16:54 Date of Discharge Admission Diagnosis UTI Weakness Continue Rocephin Await sensitivities PT/OT as able Calender Operator Helper consulted, may need SNF on DC Left leg pain Hip XR ordered Resume home hydrocodone CKD Creatinine up slightly from his baseline Continue IVF and hold nephrotoxic meds IDDMII Resume home insulin SSI HTN HLD Resume home meds Primary Care Bhaskar Alcantara MD Discharge Summary Discharge Physical Exam Allergies: Coded Allergies: Penicillins (Unverified Allergy, Mild, HIVES, 11/16/19) duloxetine HCl (Verified Allergy, Mild, 11/16/19) Vitals & I&Os Vital Signs Date Time Temp Pulse Resp B/P (MAP) Pulse Ox O2 Delivery O2 Flow Rate FiO2 11/19/19 08:00 37.1 77 18 128/60 (82) 92 Nasal Cannula 3.00 11/18/19 10:25 95 General Appearance: No Apparent Distress, Chronically ill, Obese Respiratory: Lungs Clear, No Respiratory Distress Cardiovascular: Regular Rate, Rhythm, No Murmur Hospital Course Pt was admitted due to UTi and generalized weakness. He was started on IV abx and had an uneventful hospital stay. He was transitioned to Keflex per his sensitivities. He was discharged back to [facility] with resumption of home health. Labs (last 24 hrs) Laboratory Tests 11/18/19 11:25: Glucometer 222H 11/18/19 16:09: Glucometer 218H 11/18/19 20:41: Glucometer 212H 11/19/19 05:48: White Blood Count 9.3, Red Blood Count 4.91, Hemoglobin 14.2, Hematocrit 43, Mean Corpuscular Volume 88, Mean Corpuscular Hemoglobin 29, Mean Corpuscular Hemoglobin Concent 33, Red Cell Distribution Width 14.4, Platelet Count 163, Mean Platelet Volume 10.2, Sodium Level 135, Potassium Level 3.9, Chloride Level 97L, Carbon Dioxide Level 27, Anion Gap 11, Blood Urea Nitrogen 19H, Creatinine 1.45H, Estimat Glomerular Filtration Rate 48, BUN/Creatinine Ratio 13, Glucose Level 128H, Calcium Level 8.7 Microbiology 11/16/19 Blood Culture - Preliminary, Resulted No growth 11/16/19 Urine Culture - Final, Complete Klebsiella pneumoniae Patient resulted labs reviewed. Pending Labs Laboratory Tests 11/19/19 05:48: White Blood Count 9.3, Red Blood Count 4.91, Hemoglobin 14.2, Hematocrit 43, Mean Corpuscular Volume 88, Mean Corpuscular Hemoglobin 29, Mean Corpuscular Hemoglobin Concent 33, Red Cell Distribution Width 14.4, Platelet Count 163, Mean Platelet Volume 10.2, Sodium Level 135, Potassium Level 3.9, Chloride Level 97, Carbon Dioxide Level 27, Anion Gap 11, Blood Urea Nitrogen 19, Creatinine 1.45, Estimat Glomerular Filtration Rate 48, BUN/Creatinine Ratio 13, Glucose Level 128, Calcium Level 8.7 Imaging: Reviewed Imaging Report Discussion & Recommendations Discharge Planning: >30 minutes discharge planning Discharge Home Medications: Active Scripts Active Reported Mucinex (Guaifenesin) 100 Mg Gran.pack 100 Mg PO Q4H PRN Metoprolol Tartrate 50 Mg Tablet 50 Mg PO BID Cranberry (Cranberry Fruit) 450 Mg Tablet 450 Mg PO BID Ondansetron Odt (Ondansetron) 4 Mg Tab.rapdis 4 Mg PO Q4H PRN Proair Hfa (Albuterol Sulfate) 1 Puff Puff 2 Puff IH QID PRN 1 PUFF = 90 MCG Isosorbide Mononitrate ER (Isosorbide Mononitrate) 30 Mg Tab.er.24h 30 Mg PO DAILY Hydrocodone-Acetamin 5-325 mg (Hydrocodone/Acetaminophen) 1 Each Tablet 1 Each PO Q6H PRN Novolog Flexpen (Insulin Aspart) 300 Units/3 Ml Solution SQ TIDAC USE PER SLIDING SCALE: 151-200=2 UNITS 201-250=4 UNITS 251-300=6 UNITS 301-350=8 UNITS 351-400=10 UNITS >400 NOTIFY PCP Urecholine (Bethanechol Chloride) 50 Mg Tablet 50 Mg PO QIDACHS Potassium Chloride 20 Meq Tablet.er 20 Meq PO DAILY TAKE WITH FUROSEMIDE Spiriva Respimat 2.5MCG/ACTUATION (Tiotropium [place]) 4 Gm Mist.inhal 2 Puff IH DAILY Nystatin 15 Gm Cream..g. 1 Applic TP TID APPLY TO REDDNESS IN FOLDS Ascorbic Acid 500 Mg Tablet 1,500 Mg PO DAILY Furosemide 20 Mg Tablet 20 Mg PO DAILY Zocor (Simvastatin) 10 Mg Tablet 10 Mg PO HS Wellbutrin Xl (Bupropion HCl) 300 Mg Tab.er.24h 300 Mg PO DAILY Tylenol (Acetaminophen) 325 Mg Tablet 650 Mg PO Q4H PRN TAKES 2 (325MG) TABS Amlodipine Besylate 10 Mg Tablet 10 Mg PO DAILY Trazodone HCl 150 Mg Tablet 150 Mg PO HS Risperidone 2 Mg Tablet 2 Mg PO BID Losartan Potassium 100 Mg Tablet 100 Mg PO DAILY Docusate Sodium 100 Mg Capsule 100 Mg PO BID Citalopram HBr (Citalopram Hydrobromide) 20 Mg Tablet 20 Mg PO DAILY Pantoprazole Sodium 40 Mg Tablet.dr 40 Mg PO DAILY Lantus Solostar (Insulin Glargine,Hum.rec.anlog) 100 Unit/1 Ml Insuln.pen 48 Units SQ HS Instructions to patient/family Please see electronic discharge instructions given to patient. Clinical Quality Measures DVT/VTE Risk/Contraindication: Risk Factor Score Per Nursin RFS Level Per Nursing on Admit: 4+=Very High LUPE ALVES MD Nov 19, 2019 10:16
[2019-11-19] MEDS ORDERED: CEPH-507 PO (10:18)
--- NOTE | 2019-11-19 10:20 | D/C HH Face to Face Order ---
D/C Face to Face Orders Instructions for Patient Via [facility] [place] [facility], Patient Instructions/FollowUp: Please continue to take your medications as written. Please follow up with your primary care doctor in the next week to follow up this hospital stay. Physician to follow Patient: Dr Alcantara Discharge Diet for Home: No Restrictions Patient Data-Allergies,Ht & Wt Patient Allergies: Coded Allergies: Penicillins (Unverified Allergy, Mild, HIVES, 11/16/19) duloxetine HCl (Verified Allergy, Mild, 11/16/19) Height (Feet): 5 Height (Inches): 9.00 Weight (Pounds): 260 Weight (Ounces): 0.0 Home Health Need/Face to Face Date of Face to Face: Nov 19, 2019 Clinical Findings: Generalized weakness and fatigue, Unsteady gait I have seen Pt ehuz-mt-eari: Yes Discharged To: Other (HALF-WAY) Diagnosis/Conditions: UTI, Weakness Patient is Homebound due to: Giovanny fall risk due to instabilty, Muscle weakness Homebound Status Due to the above stated illness, injury or surgical procedure (medical condition or diagnosis) and associated clinical findings, the patient is homebound because of his/her inability to leave home except with aid of a supportive device and/or person AND leaving the home requires a considerable and taxing effort or is medically contraindicated. Pt req the following assistanc: Aid of another person, Walker, Wheelchair Home Health Nursing Orders Home Health Services Order: Brewer Helper-Evaluate & Treat, Physical Therapy-Evaluate & Treat Home Health Infusion Therapy Line Start Date: Nov 16, 2019 Therapy Orders Therapy Orders: OT (must have SN or PT order), Physical Therapy Therapy Specific Orders: Eval assistive deivces, Teach enviro modifications/safety, Increase strength/endurance Certify Stmt I certify that this patient is under my care and that I, a nurse practitioner or a physician; a promotions assistant sales marketing working with me, had a face to face encounter that - meets the physician face to face encounter requirements with this patient as dated. LUPE ALVES MD Nov 19, 2019 10:20
--- NOTE | 2019-11-19 10:26 | NUR ---
CM/SS: Pt will return back to [facility] today. They are able to corn picker pt. They will plan to pickup pt at 1:00pm today. ADRIAN Lovett is notified of the time of pickup for pt.
[2019-11-19 14:07] VITALS: BP 128/60
[2019-11-19] MEDS ORDERED: SENNA W/DOCUSATE (SENOKOT S) TABLET PO SCH (21:00)
== END 2019-11-19 14:23 | disposition home health service (06) | DRG 699 ==
LOC: EDUNIT# 15:29 → ER 15:29 → 4TH 16:54
PROVIDERS: ADMIT Internal Medicine; ATTEND Internal Medicine
DX: T83.511A Infection and inflammatory reaction due to indwelling urethral catheter, initial encounter (principal); N17.9 Acute kidney failure, unspecified; N39.0 Urinary tract infection, site not specified; J44.9 Chronic obstructive pulmonary disease, unspecified; I12.9 Hypertensive chronic kidney disease with stage 1 through stage 4 chronic kidney disease, or unspecified chronic kidney disease; N18.9 Chronic kidney disease, unspecified; I25.10 Atherosclerotic heart disease of native coronary artery without angina pectoris; G47.30 Sleep apnea, unspecified; E11.40 Type 2 diabetes mellitus with diabetic neuropathy, unspecified; E78.00 Pure hypercholesterolemia, unspecified; N40.0 Benign prostatic hyperplasia without lower urinary tract symptoms; B96.1 Klebsiella pneumoniae [K. pneumoniae] as the cause of diseases classified elsewhere; E66.9 Obesity, unspecified; K21.9 Gastro-esophageal reflux disease without esophagitis; F41.9 Anxiety disorder, unspecified; F32.9 Major depressive disorder, single episode, unspecified; K59.09 Other constipation; M19.91 Primary osteoarthritis, unspecified site; Z20.828 Contact with and (suspected) exposure to other viral communicable diseases; Z95.5 Presence of coronary angioplasty implant and graft; Z99.81 Dependence on supplemental oxygen; Z87.891 Personal history of nicotine dependence; Z68.37 Body mass index [BMI] 37.0-37.9, adult; Z79.4 Long term (current) use of insulin; F03.90 Unspecified dementia, unspecified severity, without behavioral disturbance, psychotic disturbance, mood disturbance, and anxiety
CPT/HCPCS: 36415; 71045; 72170; 73501; 73560; 73590; 80048; 80053; 81000; 82962; 83605; 84145; 85025; 85027; 87040; 87077; 87088; 87186; 87635; 94640; 94664; 94760

== ENCOUNTER 2020-10-05 14:02 | Emergency (ER) | payer MEDICARE, MEDICAID ==
[~2020-10-05] VITALS: Ht 175 cm; Wt 100.0 kg
[~2020-10-05 14:02] MED LIST changes: +ACHD5005 PO; +AMLO-250 PO; +AMLO-251 PO; -AMLO10TA7 PO; -AMLO5TAB9 PO; +ASCO100024 PO; -ASCO10006 PO; +ASPI-1238 PO; -ASPI-983 PO; +CEPH-507 PO; +CRAN450T9 PO; -ISOS30TA3 PO; +ISOS30TA82 PO; +METO50TA15 PO; +ONDA4TAB11 PO; -PANT40TA3 PO; +PANT40TA52 PO; -RISP2TAB3 PO; +RISP2TAB84 PO; +[UNRECOGNIZED DRUG - CODE] PO
--- NOTE | 2020-10-05 14:48 | ED Head Injury ---
General Chief Complaint: Trauma-Non Activation Stated Complaint: FALL Nursing Triage Note: TO ED PER EMS FROM [facility] CHELITA WAS STANDING AND FELL BACK HIT HEAD NO LOC Source: patient Exam Limitations: no limitations (JOSHUA MENSAH APRN) History of Present Illness Date Seen by Provider: Oct 05, 2020 Time Seen by Provider: 14:47 Initial Comments To ER from [facility] with reports of an unwitnessed fall. He states that he fell backward striking the back of his head no loss of consciousness no neck pain. He does also have some mild midline low back pain Occurred: just prior to arrival Severity: moderate (JOSHUA MENSAH APRN) Allergies and Home Medications Allergies Coded Allergies: Penicillins (Unverified Allergy, Mild, HIVES, 11/16/19) duloxetine HCl (Verified Allergy, Mild, 11/16/19) Home Medications Acetaminophen 325 Mg Tablet, 650 MG PO Q4H PRN for PAIN/TEMP, (Reported) TAKES 2 (325MG) TABS Albuterol Sulfate 1 Puff Puff, 2 PUFF IH QID PRN for SHORTNESS OF BREATH, (Reported) 1 PUFF = 90 MCG Amlodipine Besylate 10 Mg Tablet, 10 MG PO DAILY, (Reported) Ascorbic Acid 500 Mg Tablet, 1,500 MG PO DAILY, (Reported) Bethanechol Chloride 50 Mg Tablet, 50 MG PO QIDACHS, (Reported) Bupropion HCl 300 Mg Tab.er.24h, 300 MG PO DAILY, (Reported) Cephalexin 500 Mg Capsule, 500 MG PO BID Prescribed by: LUPE ALVES on 11/19/19 1018 Citalopram Hydrobromide 20 Mg Tablet, 20 MG PO DAILY, (Reported) Cranberry Fruit 450 Mg Tablet, 450 MG PO BID, (Reported) Docusate Sodium 100 Mg Capsule, 100 MG PO BID, (Reported) Furosemide 20 Mg Tablet, 20 MG PO DAILY, (Reported) Guaifenesin 100 Mg Gran.pack, 100 MG PO Q4H PRN for COUGH, (Reported) Hydrocodone/Acetaminophen 1 Each Tablet, 1 EACH PO Q6H PRN for PAIN-MODERATE (5- 7), (Reported) Insulin Aspart 300 Units/3 Ml Solution, SQ TIDAC, (Reported) USE PER SLIDING SCALE: 151-200=2 UNITS 201-250=4 UNITS 251-300=6 UNITS 301-350=8 UNITS 351-400=10 UNITS >400 NOTIFY PCP Insulin Glargine,Hum.rec.anlog 100 Unit/1 Ml Insuln.pen, 48 UNITS SQ HS, (Reported) Isosorbide Mononitrate 30 Mg Tab.er.24h, 30 MG PO DAILY, (Reported) Losartan Potassium 100 Mg Tablet, 100 MG PO DAILY, (Reported) Metoprolol Tartrate 50 Mg Tablet, 50 MG PO BID, (Reported) Nystatin 15 Gm Cream..g., 1 APPLIC TP TID, (Reported) APPLY TO REDDNESS IN FOLDS Ondansetron 4 Mg Tab.rapdis, 4 MG PO Q4H PRN for NAUSEA/VOMITING, (Reported) Pantoprazole Sodium 40 Mg Tablet.dr, 40 MG PO DAILY, (Reported) Potassium Chloride 20 Meq Tablet.er, 20 MEQ PO DAILY, (Reported) TAKE WITH FUROSEMIDE Risperidone 2 Mg Tablet, 2 MG PO BID, (Reported) Simvastatin 10 Mg Tablet, 10 MG PO HS, (Reported) Tiotropium [place] 4 Gm Mist.inhal, 2 PUFF IH DAILY, (Reported) Trazodone HCl 150 Mg Tablet, 150 MG PO HS, (Reported) Patient Home Medication List Home Medication List Reviewed: Yes (JOSHUA MENSAH APRN) Review of Systems Review of Systems Constitutional: see HPI Eyes: No Symptoms Reported Ears, Nose, Mouth, Throat: no symptoms reported Respiratory: no symptoms reported Cardiovascular: no symptoms reported Genitourinary: no symptoms reported Musculoskeletal: see HPI, back pain Skin: no symptoms reported Psychiatric/Neurological: No Symptoms Reported (JOSHUA MENSAH APRN) Past Zpcsrcr-Njggtq-Jfjsqh Hx Patient Social History Alcohol Use: Denies Use Smoking Status: Former Smoker Type Used: Cigarettes Former Smoker, Quit: Jun 06, 2012 2nd Hand Smoke Exposure: No Recent Infectious Disease Expo: No Recent Hopitalizations: No (JOSHUA MENSAH APRN) Immunizations Up To Date Date of Pneumonia Vaccine: Mar 07, 2010 Date of Influenza Vaccine: Mar 07, 2017 (JOSHUA MENSAH APRN) Seasonal Allergies Seasonal Allergies: No (JOSHUA MENSAH APRN) Past Medical History Surgeries: Yes (CARDIAC CATH 05/2017--PATENT STENT, NON-OCCLUSIIVE CAD--NO INTERVENTION) Cardiac, Coronary Stent, Eye Surgery, Transurethral Resection Respiratory: Yes (HX OF SEPSIS, O2 AT 3 L/NC CONTINUOUSLY; CHRONIC COUGH) Pneumonia, Chronic Bronchitis, Sleep Apnea, COPD Currently Using CPAP: Yes Cardiac: Yes (RBBB, LAFB; CARDIAC CATHS--STENT X 1) Chronic Edema/Swelling, Coronary Artery Disease, High Cholesterol, Hypertension Neurological: Yes Dementia, Neuropathy Reproductive Disorders: No Sexually Transmitted Disease: No HIV/AIDS: No Genitourinary: Yes (INDWELLING ESCALANTE, CHRONIC BILATERAL HYDRONEPHROSIS) Benign Prostatic Hyperpl, Prostate Problems, Neurogenic Bladder, UTI-Chronic Gastrointestinal: Yes Gastroesophageal Reflux, Chronic Constipation Musculoskeletal: Yes Arthritis, Chronic Back Pain Endocrine: Yes (THYROID NODULE) Diabetes, Insulin dep HEENT: Yes (ANGIOEDEMA OF TONGUE) Cataract Hearing Impairment: Hard of Hearing Cancer: No Psychosocial: Yes Sleep Difficulties, Anxiety, Depression Integumentary: No Blood Disorders: No Adverse Reaction/Blood Tranf: No (JOSHUA MENSAH APRN) Family Medical History Family history: Hypertension 03 FATHER Stroke 03 MOTHER No Pertinent Family Hx PSH: -CATARACT SURGERY -TURP 10/31/[address] LAROSE -CARDIAC CATHS--STENT X 1--LAST CATH 05/2017--PATENT STENT, NON-OCCLUSIVE CAD, NO INTERVENTION -CHOLECYSTETCOMY (JOSHUA MENSAH APRN) Physical Exam Vital Signs Vital Signs - First Documented 10/05/20 10/05/20 14:06 17:34 Temp 35.9 Pulse 95 Resp 18 B/P (MAP) 141/92 (108) Pulse Ox 98 O2 Delivery Room Air O2 Flow Rate 2.00 (MIRNA CARRION MD) Vital Signs Capillary Refill : Less Than 3 Seconds (JOSHUA MENSAH APRN) Height, Weight, BMI Height: 5'9.00" Weight: 260lbs. 0.0oz. 117.534341vm; 32.00 BMI Method:Stated General Appearance: WD/WN, no apparent distress Respiratory: no respiratory distress, no accessory muscle use Gastrointestinal: normal bowel sounds, non tender, soft (In DEP ENT ENT doing well at that) Back: normal inspection, other (Mild midline low back pain) Psychiatric: alert, oriented x 3 Crainal Nerves: normal hearing, normal speech, PERRL Motor/Sensory: no motor deficit, no sensory deficit Skin: normal color, warm/dry (JOSHUA MENSAH APRN) Progress/Results/Core Measures Results/Orders Vital Signs/I&O 10/05/20 10/05/20 14:06 17:34 Temp 35.9 Pulse 95 75 Resp 18 18 B/P (MAP) 141/92 (108) 193/103 Pulse Ox 98 95 O2 Delivery Room Air Nasal Cannula O2 Flow Rate 2.00 (MIRNA CARRION MD) Blood Pressure Mean: 108 Progress Progress Note : Progress Note I was physically present in the emergency room during the care of this patient as the attending physician on duty, but I was not directly involved in his care. (MIRNA CARRION MD) Diagnostic Imaging Diagonstic Imaging: Xray Comments NAME: GUALBERTO PARK [facility] REC#: [id number] PT STATUS: REG ER : 1945 PHYSICIAN: JOSHUA MENSAH APRN ADMIT DATE: 10/05/20/ER Draft Date of Exam:10/05/20 CT HEAD/CERVICAL SPINE WO INDICATION: Fall with head and neck pain. TECHNIQUE: Multiple contiguous axial images were obtained through the brain and cervical spine without the use of intravenous contrast. Sagittal and coronal reformations through the cervical spine were then performed. Auto Exposure Controls were utilized during the CT exam to meet ALARA standards for radiation dose reduction. CT head is compared with 09/29/2018. There is no prior CT cervical spine for comparison. CT head findings: There are diffuse atrophic changes. There are mild low-density changes in the deep white matter compatible with chronic ischemic change. There is no acute hemorrhage or mass effect. No midline shift. Ventricles are normal in size for age. Calvarial windows show no fracture. Visualized portions of the sinuses are clear. CT cervical spine findings: There was no evidence of cervical spine fracture. There is no subluxation or malalignment. There is disc space narrowing most prominent at C4-C5 and C5-C6. There is diffuse facet degenerative change. IMPRESSION: CT head shows chronic changes as above with no acute intracranial finding. CT cervical spine shows multilevel degenerative changes with no acute fracture or subluxation. Dictated on workstation # [id number] Dict: 10/05/20 1455 Trans: 10/05/20 1501 [id number] Interpreted by: TAY TOVAR MD Electronically signed by: (JOSHUA MENSAH APRN) Departure Impression Primary Impression: Fall Disposition: 01 HOME, SELF-CARE Condition: Stable Departure-Patient Inst. Decision time for Depature: 16:44 (JOSHUA MENSAH APRN) Referrals: VERENA LANCE MD (PCP/Family) Primary Care Physician Patient Instructions: Preventing Falls in the Older Adult JOSHUA MENSAH APRN Oct 05, 2020 14:48 MIRNA CARRION MD Oct 05, 2020 19:24
--- NOTE | 2020-10-05 15:01 | Diagnostic Imaging Report ---
INDICATION: Fall with head and neck pain. TECHNIQUE: Multiple contiguous axial images were obtained through the brain and cervical spine without the use of intravenous contrast. Sagittal and coronal reformations through the cervical spine were then performed. Auto Exposure Controls were utilized during the CT exam to meet ALARA standards for radiation dose reduction. CT head is compared with 09/29/2018. There is no prior CT cervical spine for comparison. CT head findings: There are diffuse atrophic changes. There are mild low-density changes in the deep white matter compatible with chronic ischemic change. There is no acute hemorrhage or mass effect. No midline shift. Ventricles are normal in size for age. Calvarial windows show no fracture. Visualized portions of the sinuses are clear. CT cervical spine findings: There was no evidence of cervical spine fracture. There is no subluxation or malalignment. There is disc space narrowing most prominent at C4-C5 and C5-C6. There is diffuse facet degenerative change. IMPRESSION: CT head shows chronic changes as above with no acute intracranial finding. CT cervical spine shows multilevel degenerative changes with no acute fracture or subluxation. Dictated by: Dictated on workstation # [id number]
--- NOTE | 2020-10-05 15:52 | Diagnostic Imaging Report ---
INDICATION: Pelvic pain. TECHNIQUE: AP pelvis obtained at 03:37 p.m. FINDINGS: No fracture or acute bony abnormality is seen. There is moderate degenerative change of the hip joints on both sides with moderate joint space narrowing and osteophyte formation. IMPRESSION: Degenerative changes as above with no acute bony abnormality of the pelvis. Dictated by: Dictated on workstation # [id number]
--- NOTE | 2020-10-05 16:27 | Diagnostic Imaging Report ---
PROCEDURE: CT lumbar spine without contrast. TECHNIQUE: Multiple contiguous axial images were obtained through the lumbar spine without the use of intravenous contrast. Sagittal and coronal reformations were then performed. Auto Exposure Controls were utilized during the CT exam to meet ALARA standards for radiation dose reduction. INDICATION: Falls, back pain. COMPARISON: Correlation made with abdominopelvic CT of 03/21/2019. FINDINGS: The lumbar statures are stable. Alignment is stable with slight grade 1 degenerative retrolisthesis of L2 on L3. There is romero-lumbar spondylosis with multilevel vacuum gas phenomenon. There is endplate sclerosis, marginal osteophytes, ligamenta flava thickening, and facet arthrosis. There was however no paraspinal mass, hemorrhage, or fluid collection, and no evidence for acute or subacute fracture found. No significant change. Multifactorial degenerative changes result in significant degrees of stenosis at multiple levels. At L1-L2, there is nbnammys-ls-oxtpdl canal stenosis with mild biforaminal narrowing. At L2-L3, there is severe central canal stenosis with moderate left and mild right foraminal stenosis. At L3-L4, there is moderate canal and dktg-wj-tfocogvh biforaminal stenosis. At L4-L5, there is severe canal stenosis with obpghwdd-vx-uajvoi right and dmqv-qr-gweazzjj left foraminal narrowing. At the L5-S1 level, there is mild canal and severe biforaminal stenosis. IMPRESSION: 1. Stable from comparison multifactorial degenerative changes to the discs, endplates, facets, and ligamenta flava result in significant degrees of multilevel stenoses detailed above. 2. Stable multilevel grade 1 degenerative listheses. No lumbar fracture or traumatic malalignment. No acute-appearing bony abnormality. Dictated by: Dictated on workstation # [id number]
[2020-10-05 17:34] VITALS: BP 193/103
== END 2020-10-05 17:34 | disposition home or self-care (01) ==
LOC: EDUNIT# 14:02 → ER 14:04
DX: M54.5 Low back pain (principal); I10 Essential (primary) hypertension; E11.40 Type 2 diabetes mellitus with diabetic neuropathy, unspecified; J44.9 Chronic obstructive pulmonary disease, unspecified; G47.30 Sleep apnea, unspecified; F03.90 Unspecified dementia, unspecified severity, without behavioral disturbance, psychotic disturbance, mood disturbance, and anxiety; I25.10 Atherosclerotic heart disease of native coronary artery without angina pectoris; E78.00 Pure hypercholesterolemia, unspecified; K21.9 Gastro-esophageal reflux disease without esophagitis; K59.09 Other constipation; G89.29 Other chronic pain; F41.9 Anxiety disorder, unspecified; F32.9 Major depressive disorder, single episode, unspecified; Z87.891 Personal history of nicotine dependence; Z95.5 Presence of coronary angioplasty implant and graft; Z95.9 Presence of cardiac and vascular implant and graft, unspecified; Z99.89 Dependence on other enabling machines and devices; Z79.891 Long term (current) use of opiate analgesic; Z79.4 Long term (current) use of insulin; Z79.899 Other long term (current) drug therapy; W01.198A Fall on same level from slipping, tripping and stumbling with subsequent striking against other object, initial encounter
CPT/HCPCS: 70450; 72125; 72131; 72170

== ENCOUNTER 2020-10-07 10:18 | Emergency (ER) | payer MEDICARE, MEDICAID ==
[~2020-10-07] VITALS: Ht 175.2 cm; Wt 99.7 kg
--- NOTE | 2020-10-07 10:48 | ED Respiratory ---
General Chief Complaint: Respiratory Problems Stated Complaint: PASSING OUT, FELL Nursing Triage Note: PT TO ED FROM DR LANCE'S OFFICE. PT'S [employer] PT HAD A FALL SEVERAL DAYS AGO AND HAS HAD SOB BREATH SINCE. PT'S O2 SAT AT DR LANCE'S OFFICE WAS 85% ON 2L. PT'S O2 86% AT ED ON 2 L. PT INCREASED TO 5 L AND O2 NOW 94-95%. AUDIBLE WHEEZES HEARD. Source: patient Exam Limitations: no limitations History of Present Illness Date Seen by Provider: Oct 07, 2020 Time Seen by Provider: 10:35 Initial Comments Patient is a 75-year-old male who presents to the emergency department today with a chief complaint of feeling short of breath. He was seen at his primary care physician's office by the physicians retirement assistant and found to have low oxygen saturations at around 85%. Patient was increased to 5 L and is now 94 to 95%. Patient states that he had a couple of falls earlier in the week. On one fall he did hit his head but he did not get knocked unconscious. Patient is not complaining of any pain whatsoever. He does feel short of breath like he is "lost my wind". Patient denies smoking. States that he has had a somewhat productive cough. Denies fevers or chills. Denies bowel or bladder problems. Uses a walker for ambulation and uses it at all times. Patient does not recall what caused him to fall. He does not know if he is on any blood thinners and per review of the medical record he is not on blood thinners. Again the patient complains of no significant pain issues. He is awake alert and aware. All other review of systems reviewed and negative except as stated above. Timing/Duration: this afternoon Severity: moderate Associated Symptoms: shortness of breath, wheezing Allergies and Home Medications Allergies Coded Allergies: Penicillins (Unverified Allergy, Mild, HIVES, 11/16/19) duloxetine HCl (Verified Allergy, Mild, 11/16/19) Home Medications Acetaminophen 325 Mg Tablet, 650 MG PO Q4H PRN for PAIN/TEMP, (Reported) TAKES 2 (325MG) TABS Albuterol Sulfate 1 Puff Puff, 2 PUFF IH QID PRN for SHORTNESS OF BREATH, (Reported) 1 PUFF = 90 MCG Amlodipine Besylate 10 Mg Tablet, 10 MG PO DAILY, (Reported) Ascorbic Acid 500 Mg Tablet, 1,500 MG PO DAILY, (Reported) Bethanechol Chloride 50 Mg Tablet, 50 MG PO QIDACHS, (Reported) Bupropion HCl 300 Mg Tab.er.24h, 300 MG PO DAILY, (Reported) Cephalexin 500 Mg Capsule, 500 MG PO BID Prescribed by: LUPE ALVES on 11/19/19 1018 Citalopram Hydrobromide 20 Mg Tablet, 20 MG PO DAILY, (Reported) Cranberry Fruit 450 Mg Tablet, 450 MG PO BID, (Reported) Docusate Sodium 100 Mg Capsule, 100 MG PO BID, (Reported) Furosemide 20 Mg Tablet, 20 MG PO DAILY, (Reported) Guaifenesin 100 Mg Gran.pack, 100 MG PO Q4H PRN for COUGH, (Reported) Hydrocodone/Acetaminophen 1 Each Tablet, 1 EACH PO Q6H PRN for PAIN-MODERATE (5- 7), (Reported) Insulin Aspart 300 Units/3 Ml Solution, SQ TIDAC, (Reported) USE PER SLIDING SCALE: 151-200=2 UNITS 201-250=4 UNITS 251-300=6 UNITS 301- 350=8 UNITS 351-400=10 UNITS >400 NOTIFY PCP Insulin Glargine,Hum.rec.anlog 100 Unit/1 Ml Insuln.pen, 48 UNITS SQ HS, (Reported) Isosorbide Mononitrate 30 Mg Tab.er.24h, 30 MG PO DAILY, (Reported) Losartan Potassium 100 Mg Tablet, 100 MG PO DAILY, (Reported) Metoprolol Tartrate 50 Mg Tablet, 50 MG PO BID, (Reported) Nystatin 15 Gm Cream..g., 1 APPLIC TP TID, (Reported) APPLY TO REDDNESS IN FOLDS Ondansetron 4 Mg Tab.rapdis, 4 MG PO Q4H PRN for NAUSEA/VOMITING, (Reported) Pantoprazole Sodium 40 Mg Tablet.dr, 40 MG PO DAILY, (Reported) Potassium Chloride 20 Meq Tablet.er, 20 MEQ PO DAILY, (Reported) TAKE WITH FUROSEMIDE Risperidone 2 Mg Tablet, 2 MG PO BID, (Reported) Simvastatin 10 Mg Tablet, 10 MG PO HS, (Reported) Tiotropium [place] 4 Gm Mist.inhal, 2 PUFF IH DAILY, (Reported) Trazodone HCl 150 Mg Tablet, 150 MG PO HS, (Reported) Patient Home Medication List Home Medication List Reviewed: Yes Review of Systems Review of Systems Constitutional: see HPI EENTM: no symptoms reported Respiratory: short of breath, wheezing Cardiovascular: no symptoms reported Gastrointestinal: no symptoms reported Genitourinary: no symptoms reported Musculoskeletal: no symptoms reported Skin: no symptoms reported Psychiatric/Neurological: No Symptoms Reported All Other Systems Reviewed Negative Unless Noted: Yes Past Nvbasbh-Vgiwfg-Iicwtd Hx Patient Social History Alcohol Use: Occasionally Uses Smoking Status: Former Smoker Type Used: Cigarettes Former Smoker, Quit: Jun 06, 2012 2nd Hand Smoke Exposure: No Recent Infectious Disease Expo: No Recent Hopitalizations: No Immunizations Up To Date Date of Pneumonia Vaccine: Mar 07, 2010 Date of Influenza Vaccine: Mar 07, 2017 Seasonal Allergies Seasonal Allergies: No Past Medical History Surgeries: Yes (CARDIAC CATH 05/2017--PATENT STENT, NON-OCCLUSIIVE CAD--NO INTERVENTION) Cardiac, Coronary Stent, Eye Surgery, Transurethral Resection Respiratory: Yes (HX OF SEPSIS, O2 AT 3 L/NC CONTINUOUSLY; CHRONIC COUGH) Pneumonia, Chronic Bronchitis, Sleep Apnea, COPD Currently Using CPAP: Yes Cardiac: Yes (RBBB, LAFB; CARDIAC CATHS--STENT X 1) Chronic Edema/Swelling, Coronary Artery Disease, High Cholesterol, Hypertension Neurological: Yes Dementia, Neuropathy Reproductive Disorders: No Sexually Transmitted Disease: No HIV/AIDS: No Genitourinary: Yes (INDWELLING ESCALANTE, CHRONIC BILATERAL HYDRONEPHROSIS) Benign Prostatic Hyperpl, Prostate Problems, Neurogenic Bladder, UTI-Chronic Gastrointestinal: Yes Gastroesophageal Reflux, Chronic Constipation Musculoskeletal: Yes Arthritis, Chronic Back Pain Endocrine: Yes (THYROID NODULE) Diabetes, Insulin dep HEENT: Yes (ANGIOEDEMA OF TONGUE) Cataract Hearing Impairment: Hard of Hearing Cancer: No Psychosocial: Yes Sleep Difficulties, Anxiety, Depression Integumentary: No Blood Disorders: No Adverse Reaction/Blood Tranf: No Family Medical History Family history: Hypertension 03 FATHER Stroke 03 MOTHER No Pertinent Family Hx PSH: -CATARACT SURGERY -TURP 10/31/[address] LAROSE -CARDIAC CATHS--STENT X 1--LAST CATH 05/2017--PATENT STENT, NON-OCCLUSIVE CAD, NO INTERVENTION -CHOLECYSTETCOMY Physical Exam Vital Signs - First Documented 10/07/20 10:20 Temp 36.9 Pulse 77 Resp 22 B/P (MAP) 145/97 (113) Pulse Ox 86 O2 Delivery Room Air O2 Flow Rate 2.00 Capillary Refill : Less Than 3 Seconds Height: 5'9.00" Weight: 260lbs. 0.0oz. 117.232696hw; 32.00 BMI Method:Stated General Appearance: WD/WN, no apparent distress Eyes: Bilateral Eye Normal Inspection, Bilateral Eye PERRL, Bilateral Eye EOMI HEENT: PERRL/EOMI Respiratory: no respiratory distress, no accessory muscle use, wheezing (Inspiratory and expiratory wheezing noted, slightly diminished on the left versus the right side) Cardiovascular: regular rate, rhythm Gastrointestinal: soft, tenderness (Mild diffuse tenderness to the abdomen) Extremities: non-tender, normal inspection, no pedal edema Neurologic/Psychiatric: alert, normal mood/affect, oriented x 3 Skin: normal color, warm/dry Progress/Results/Core Measures Suspected Sepsis Recent Fever Within 48 Hours: No Infection Criteria Present: None New/Unexplained Altered Menta: No Sepsis Screen: No Definite Risk SIRS Temperature: Pulse: 77 Respiratory Rate: 22 Laboratory Tests 10/07/20 10:25: White Blood Count 7.2 Blood Pressure 145 /97 Mean: 113 Laboratory Tests 10/07/20 10:25: Creatinine 1.85H, Platelet Count 170 Results/Orders Lab Results Laboratory Tests Test 10/07/20 10:25 Range/Units White Blood Count 7.2 4.3-11.0 10^3/uL Red Blood Count 4.60 4.30-5.52 10^6/uL Hemoglobin 13.9 13.3-17.7 g/dL Hematocrit 43 40-54 % Mean Corpuscular Volume 93 80-99 fL Mean Corpuscular Hemoglobin 30 25-34 pg Mean Corpuscular Hemoglobin Concent 33 32-36 g/dL Red Cell Distribution Width 13.1 10.0-14.5 % Platelet Count 170 130-400 10^3/uL Mean Platelet Volume 10.7 9.0-12.2 fL Immature Granulocyte % (Auto) 1 % Neutrophils (%) (Auto) 64 42-75 % Lymphocytes (%) (Auto) 22 12-44 % Monocytes (%) (Auto) 7 0-12 % Eosinophils (%) (Auto) 6 0-10 % Basophils (%) (Auto) 0 0-10 % Neutrophils # (Auto) 4.6 1.8-7.8 10^3/uL Lymphocytes # (Auto) 1.6 1.0-4.0 10^3/uL Monocytes # (Auto) 0.5 0.0-1.0 10^3/uL Eosinophils # (Auto) 0.5 H 0.0-0.3 10^3/uL Basophils # (Auto) 0.0 0.0-0.1 10^3/uL Immature Granulocyte # (Auto) 0.1 0.0-0.1 10^3/uL Sodium Level 136 135-145 MMOL/L Potassium Level 4.9 3.6-5.0 MMOL/L Chloride Level 96 L 98-107 MMOL/L Carbon Dioxide Level 28 21-32 MMOL/L Anion Gap 12 5-14 MMOL/L Blood Urea Nitrogen 15 7-18 MG/DL Creatinine 1.85 H 0.60-1.30 MG/DL Estimat Glomerular Filtration Rate 36 BUN/Creatinine Ratio 8 Glucose Level 221 H 70-105 MG/DL Calcium Level 9.0 8.5-10.1 MG/DL My Orders Orders - NAYLA MCNALLY MD Cbc With Automated Diff (10/07/20 10:48) Basic Metabolic Panel (10/07/20 10:48) Chest 1 View, Ap/Pa Only (10/07/20 10:48) Ceftriaxone For Iv Use (Rocephin For I (10/07/20 11:45) Albuterol/Ipra Inhalation Soln (Duoneb I (10/07/20 12:00) Svn Small Volume Nebulizer (10/07/20 11:48) Medications Given in ED Current Medications Medications Dose Ordered Sig/Areli Route Start Time Stop Time Status Last Admin Dose Admin Ceftriaxone Sodium 1000 mg/ Sterile Water 10 ml @ 200 mls/hr ONCE ONCE IV 10/07/20 11:45 10/07/20 11:47 DC 10/07/20 11:51 200 MLS/HR Vital Signs/I&O 10/07/20 10:20 Temp 36.9 Pulse 77 Resp 22 B/P (MAP) 145/97 (113) Pulse Ox 86 O2 Delivery Room Air O2 Flow Rate 2.00 Capillary Refill : Less Than 3 Seconds Blood Pressure Mean: 113 Progress Note : Time: 11:54 Progress Note Patient seen and examined, 75-year-old with a history of 2 recent falls. Low oxygen at his primary care physician's office. Patient is bumped up to 4 L of oxygen here and maintaining sats between 94 and 96%. He does have bibasilar infiltrates on x-ray with normal-appearing labs. Patient is transition back down to his 3 L and given a gram of Rocephin here in the department. Will start him on cefdinir and azithromycin at the alf. Close follow-up. Return precautions given to the patient he seems to verbalize understanding. No other complaints of illness or injury at this time. Diagnostic Imaging Diagonstic Imaging: Xray Plain Films/CT/US/NM/MRI: chest Comments [facility]. [place], [place] NAME: GUALBERTO PARK [facility] REC#: [id number] PT STATUS: REG ER : 1945 PHYSICIAN: NAYLA MCNALLY MD ADMIT DATE: 10/07/20/ER Draft Date of Exam:10/07/20 CHEST 1 VIEW, AP/PA ONLY INDICATION: Shortness of breath and wheezing. TIME OF EXAM: 11:02 a.m. COMPARISON: Comparison is made with prior chest from 11/16/2019. FINDINGS: The heart size is stable. The appear to be patchy infiltrates in both bases. No effusion or pneumothorax is identified. Mid and upper lung ford are clear. IMPRESSION: Patchy bibasilar infiltrates. Dictated on workstation # [id number] Dict: 10/07/20 1121 Trans: 10/07/20 1123 [id number] [id number] Interpreted by: LUIS BARTLETT MD Electronically signed by: Departure Impression Primary Impression: Pneumonia Qualified Codes: J18.9 - Pneumonia, unspecified organism Disposition: HOME, SELF-CARE Condition: Stable Departure-Patient Inst. Decision time for Depature: 11:56 Referrals: VERENA LANCE MD (PCP/Family) Primary Care Physician Patient Instructions: Pneumonia in Adults Add. Discharge Instructions: Continue breathing treatments with albuterol 2.5 mg via nebulizer as needed shortness of breath along with the albuterol inhaler. Give the cefdinir antibiotic 300 mg twice daily for 10 days. He also needs a azithromycin 500 mg once daily for 3 days. Follow-up with primary care physician in 1 week to ensure that he is recovering well. Return to the emergency room for any new, concerning or emergent complaints. Scripts Azithromycin (Azithromycin) 500 Mg Tablet 500 MG PO DAILY for 3 Days, #3 TAB Prov: NAYLA MCNALLY MD 10/07/20 Cefdinir (Cefdinir) 300 Mg Capsule 300 MG PO BID, #20 CAP 0 Refills Prov: NAYLA MCNALLY MD 10/07/20 NAYLA MCNALLY MD Oct 07, 2020 10:48
[2020-10-07 10:55] LABS: BASOPHILS % (AUTO) 0 % (0-10); EOSINOPHILS # (AUTO) 0.5 10^3/uL (0.0-0.3); EOSINOPHILS % (AUTO) 6 % (0-10); HEMATOCRIT 43 % (40-54); HEMOGLOBIN 13.9 g/dL (13.3-17.7); LYMPHOCYTES # (AUTO) 1.6 10^3/uL (1.0-4.0); LYMPHOCYTES % (AUTO) 22 % (12-44); MEAN CORPUSCULAR HEMOGLOBIN 30 pg (25-34); MEAN CORPUSCULAR HGB CONC 33 g/dL (32-36); MEAN CORPUSCULAR VOLUME 93 fL (80-99); MEAN PLATELET VOLUME 10.7 fL (9.0-12.2); MONOCYTES # (AUTO) 0.5 10^3/uL (0.0-1.0); MONOCYTES % (AUTO) 7 % (0-12); NEUTROPHILS # (AUTO) 4.6 10^3/uL (1.8-7.8); NEUTROPHILS % (AUTO) 64 % (42-75); PLATELET COUNT 170 10^3/uL (130-400); WHITE BLOOD COUNT 7.2 10^3/uL (4.3-11.0)
[2020-10-07 10:56] LABS: POTASSIUM 4.9 MMOL/L (3.6-5.0)
[2020-10-07 11:01] LABS: CREATININE SERUM 1.85 MG/DL (0.60-1.30)
--- NOTE | 2020-10-07 11:23 | Diagnostic Imaging Report ---
INDICATION: Shortness of breath and wheezing. TIME OF EXAM: 11:02 a.m. COMPARISON: Comparison is made with prior chest from 11/16/2019. FINDINGS: The heart size is stable. The appear to be patchy infiltrates in both bases. No effusion or pneumothorax is identified. Mid and upper lung ford are clear. IMPRESSION: Patchy bibasilar infiltrates. Dictated by: Dictated on workstation # [id number]
[2020-10-07] MEDS ORDERED: cefTRIAXone FOR IV USE 1,000 MG in WATER (STERILE) FOR INJECTION 10 ML IV ONE (11:45)
[2020-10-07] MEDS ORDERED: CEFD300C3 PO (11:58)
[2020-10-07] MEDS ORDERED: AZIT500T9 PO (11:58)
[2020-10-07] MEDS ORDERED: RT-ALBUTEROL/IPRATROPIUM 3 ML (DUONEB) VIAL INH ONE (12:00)
[2020-10-07 12:06] VITALS: BP 157/97
== END 2020-10-07 12:22 | disposition home or self-care (01) ==
LOC: EDUNIT# 10:18 → ER 10:20
DX: J18.9 Pneumonia, unspecified organism (principal); J44.9 Chronic obstructive pulmonary disease, unspecified; E78.00 Pure hypercholesterolemia, unspecified; I10 Essential (primary) hypertension; K21.9 Gastro-esophageal reflux disease without esophagitis; F41.9 Anxiety disorder, unspecified; F32.9 Major depressive disorder, single episode, unspecified; E11.9 Type 2 diabetes mellitus without complications; G89.29 Other chronic pain; M54.9 Dorsalgia, unspecified; I25.10 Atherosclerotic heart disease of native coronary artery without angina pectoris; Z88.0 Allergy status to penicillin; Z88.8 Allergy status to other drugs, medicaments and biological substances; Z87.891 Personal history of nicotine dependence; Z79.899 Other long term (current) drug therapy; Z79.4 Long term (current) use of insulin; Z79.891 Long term (current) use of opiate analgesic
CPT/HCPCS: 36415; 71045; 80048; 85025; 94640

== ENCOUNTER 2020-12-30 08:56 | Inpatient (IN) | payer MEDICARE, MEDICAID ==
[~2020-12-30] VITALS: Ht 175 cm; Wt 111.5 kg
[~2020-12-30 08:56] MED LIST changes: +AZIT500T9 PO; +DOXY-311 PO; -DOXY100C42 PO
[2020-12-30 09:09] LABS: BASOPHILS % (AUTO) 0 % (0-10); EOSINOPHILS # (AUTO) 0.1 10^3/uL (0.0-0.3); EOSINOPHILS % (AUTO) 0 % (0-10); HEMATOCRIT 44 % (40-54); HEMOGLOBIN 14.2 g/dL (13.3-17.7); LYMPHOCYTES # (AUTO) 1.2 10^3/uL (1.0-4.0); LYMPHOCYTES % (AUTO) 8 % (12-44); MEAN CORPUSCULAR HEMOGLOBIN 30 pg (25-34); MEAN CORPUSCULAR HGB CONC 33 g/dL (32-36); MEAN CORPUSCULAR VOLUME 93 fL (80-99); MEAN PLATELET VOLUME 10.6 fL (9.0-12.2); MONOCYTES # (AUTO) 1.3 10^3/uL (0.0-1.0); MONOCYTES % (AUTO) 8 % (0-12); NEUTROPHILS # (AUTO) 13.3 10^3/uL (1.8-7.8); NEUTROPHILS % (AUTO) 83 % (42-75); PLATELET COUNT 163 10^3/uL (130-400)
[2020-12-30 09:23] LABS: FIBRIN DEGRADATION PRODUCTS 0.89 UG/ML (0.00-0.49); INR 1.1 (0.8-1.4); PROTHROMBIN TIME PATIENT 14.4 SEC (12.2-14.7)
[2020-12-30 09:26] LABS: ALBUMIN 3.7 GM/DL (3.2-4.5)
[2020-12-30 09:27] LABS: POTASSIUM 4.6 MMOL/L (3.6-5.0)
[2020-12-30 09:29] LABS: TOTAL PROTEIN 6.9 GM/DL (6.4-8.2)
[2020-12-30 09:31] LABS: BILIRUBIN,TOTAL 0.9 MG/DL (0.1-1.0)
[2020-12-30 09:33] LABS: CREATININE SERUM 1.92 MG/DL (0.60-1.30)
[2020-12-30 09:43] LABS: ABG BASE EXCESS 2.7 MMOL/L (-2.5-2.5); ABG OXYGEN SATURATION 98 % (94-100); ABG PCO2 48 MMHG (35-45); ABG PH 7.38 (7.37-7.43); ABG PO2 120 MMHG (79-93); ABG TCO2 29.1 MMOL/L (21.0-31.0)
[2020-12-30 09:44] LABS: ALLENS TEST YES-POS; INSPIRED O2 6L; PATIENT TEMP 36.3; VENTILATOR NO
[2020-12-30 09:45] LABS: BAND NEUTROPHILS 2 %; BASOPHILS % (MANUAL) 0 %; EOSINOPHILS % (MANUAL) 0 %; LYMPHOCYTES % (MANUAL) 6 %; MONOCYTES % (MANUAL) 8 %; NEUTROPHILS % (MANUAL) 84 %; RBC MORPH NORMAL
--- NOTE | 2020-12-30 10:25 | Diagnostic Imaging Report ---
INDICATION: Fatigue and altered level of consciousness as well as left-sided facial droop. TIME OF EXAM: 10:09 a.m. Correlation is made with prior chest 10/07/2020. FINDINGS: The heart size is normal. The pulmonary vascularity is unremarkable. The lungs are clear. No infiltrate, effusion or pneumothorax is detected. IMPRESSION: No acute cardiopulmonary process is detected. Dictated by: Dictated on workstation # [id number]
--- NOTE | 2020-12-30 10:27 | Diagnostic Imaging Report ---
INDICATION: Altered mental status and fatigue and left-sided facial droop. TECHNIQUE: Multiple contiguous axial images were obtained through the brain without the use of intravenous contrast. Auto Exposure Controls were utilized during the CT exam to meet ALARA standards for radiation dose reduction. COMPARISON: Comparison made to 10/05/2020. FINDINGS: There are diffuse atrophic changes. There are patchy low-density changes in the deep white matter, compatible with chronic ischemic change. There is no acute intracranial hemorrhage or subdural or epidural collection. The ventricles are normal in size. There are calcifications involving the carotid siphons and distal vertebral arteries. Orbital contents appear unremarkable. Calvarial windows are normal. IMPRESSION: Atrophic changes with chronic ischemic changes in deep white matter. No acute abnormality detected. Dictated by: Dictated on workstation # [id number]
[2020-12-30 10:43] LABS: BILIRUBIN,URINE NEGATIVE (NEGATIVE); CLARITY,URINE SL CLOUDY; COLOR,URINE YELLOW; GLUCOSE, URINE (UA) NEGATIVE (NEGATIVE); KETONES,URINE NEGATIVE (NEGATIVE); LEUKOCYTE ESTERASE ,URINE 3+ (NEGATIVE); NITRITE,URINE NEGATIVE (NEGATIVE); PROTEIN,URINE 2+ (NEGATIVE)
[2020-12-30 10:54] LABS: BACTERIA,URINE LARGE /HPF; WBC,URINE TNTC /HPF
[2020-12-30] MEDS ORDERED: MEROPENEM 500 MG in WATER (STERILE) FOR INJECTION 10 ML IV ONE (11:15)
--- NOTE | 2020-12-30 11:28 | ED Neurological Problem ---
General Chief Complaint: Neuro-Stroke Like Symptoms Stated Complaint: ALTERED LOC Nursing Triage Note: PT PRESENTS TO ED VIA EMS FROM [facility] FOR ALTERED LOC, FATIGUE, L SIDED FACIAL DROOP. PT LAST KNOWN WELL TIME WAS 2029 LAST NIGHT WHEN HE WENT TO BED. Source: patient, EMS, longterm records, old records Exam Limitations: other (Mild confusion/memory problem) History of Present Illness Date Seen by Provider: Dec 30, 2020 Time Seen by Provider: 08:57 Initial Comments This 75-year-old gentleman presents to the emergency room via EMS from [facility] where he was found this morning to have weakness, confusion, and left- sided facial droop. Last known well time was 1999 last night. He is normally able to independently bear weight and feed himself. He was not able to do either today. He is alert enough to joke with staff on arrival. Stroke activation was paged and initial NIH score was 4. He received 2 points for m alma issues and 2 points for left-sided facial droop and dysarthria secondary to the facial weakness. He is afebrile. He reports having received his Covid vaccination. Blood sugar for EMS was 250. He normally uses oxygen at 3 to 5 L. He is stable at that flow rate now. He was recently treated for urinary tract infection and completed a course of cefdinir. Allergies and Home Medications Allergies Coded Allergies: Penicillins (Unverified Allergy, Mild, HIVES, 11/16/19) duloxetine HCl (Verified Allergy, Mild, 11/16/19) Home Medications Acetaminophen 325 Mg Tablet, 650 MG PO Q4H PRN for PAIN/TEMP, (Reported) TAKES 2 (325MG) TABS Albuterol Sulfate 1 Puff Puff, 2 PUFF IH QID PRN for SHORTNESS OF BREATH, (Reported) 1 PUFF = 90 MCG Amlodipine Besylate 10 Mg Tablet, 10 MG PO DAILY, (Reported) Ascorbic Acid 500 Mg Tablet, 1,500 MG PO DAILY, (Reported) Azithromycin 500 Mg Tablet, 500 MG PO DAILY Prescribed by: NAYLA MCNALLY on 10/07/20 1158 Bethanechol Chloride 50 Mg Tablet, 50 MG PO QIDACHS, (Reported) Bupropion HCl 300 Mg Tab.er.24h, 300 MG PO DAILY, (Reported) Cefdinir 300 Mg Capsule, 300 MG PO BID Prescribed by: NAYLA MCNALLY on 10/07/20 1158 Cephalexin 500 Mg Capsule, 500 MG PO BID Prescribed by: LUPE MULLINS on 11/19/19 1018 Citalopram Hydrobromide 20 Mg Tablet, 20 MG PO DAILY, (Reported) Cranberry Fruit 450 Mg Tablet, 450 MG PO BID, (Reported) Docusate Sodium 100 Mg Capsule, 100 MG PO BID, (Reported) Furosemide 20 Mg Tablet, 20 MG PO DAILY, (Reported) Guaifenesin 100 Mg Gran.pack, 100 MG PO Q4H PRN for COUGH, (Reported) Hydrocodone/Acetaminophen 1 Each Tablet, 1 EACH PO Q6H PRN for PAIN-MODERATE (5- 7), (Reported) Insulin Aspart 300 Units/3 Ml Solution, SQ TIDAC, (Reported) USE PER SLIDING SCALE: 151-200=2 UNITS 201-250=4 UNITS 251-300=6 UNITS 301- 350=8 UNITS 351-400=10 UNITS >400 NOTIFY PCP Insulin Glargine,Hum.rec.anlog 100 Unit/1 Ml Insuln.pen, 48 UNITS SQ HS, (Reported) Isosorbide Mononitrate 30 Mg Tab.er.24h, 30 MG PO DAILY, (Reported) Losartan Potassium 100 Mg Tablet, 100 MG PO DAILY, (Reported) Metoprolol Tartrate 50 Mg Tablet, 50 MG PO BID, (Reported) Nystatin 15 Gm Cream..g., 1 APPLIC TP TID, (Reported) APPLY TO REDDNESS IN FOLDS Ondansetron 4 Mg Tab.rapdis, 4 MG PO Q4H PRN for NAUSEA/VOMITING, (Reported) Pantoprazole Sodium 40 Mg Tablet.dr, 40 MG PO DAILY, (Reported) Potassium Chloride 20 Meq Tablet.er, 20 MEQ PO DAILY, (Reported) TAKE WITH FUROSEMIDE Risperidone 2 Mg Tablet, 2 MG PO BID, (Reported) Simvastatin 10 Mg Tablet, 10 MG PO HS, (Reported) Tiotropium [place] 4 Gm Mist.inhal, 2 PUFF IH DAILY, (Reported) Trazodone HCl 150 Mg Tablet, 150 MG PO HS, (Reported) Past Zpvlway-Qtmfcq-Wxntjc Hx Patient Social History Smoking Status: Former Smoker Substance use?: No Alcohol Use?: No Pt feels they are or have been: No Immunizations Up To Date First/Initial COVID19 Vaccinat: unk Seasonal Allergies Seasonal Allergies: No Past Medical History Surgery/Hospitalization HX: pmh: depression, htn, gerd, edema, diabetic, copd, high cholesterol Surgeries: Yes (CARDIAC CATH 05/2017--PATENT STENT, NON-OCCLUSIIVE CAD--NO INTERVENTION) Cardiac, Coronary Stent, Eye Surgery, Transurethral Resection Respiratory: Yes (HX OF SEPSIS, O2 AT 3 L/NC CONTINUOUSLY; CHRONIC COUGH) Pneumonia, Chronic Bronchitis, Sleep Apnea, COPD Currently Using CPAP: Yes Cardiac: Yes (RBBB, LAFB; CARDIAC CATHS--STENT X 1) Chronic Edema/Swelling, Coronary Artery Disease, High Cholesterol, Hypertension Neurological: Yes Dementia, Neuropathy Reproductive Disorders: No Sexually Transmitted Disease: No HIV/AIDS: No Genitourinary: Yes (INDWELLING ESCALANTE, CHRONIC BILATERAL HYDRONEPHROSIS) Benign Prostatic Hyperpl, Prostate Problems, Neurogenic Bladder, UTI-Chronic Gastrointestinal: Yes Gastroesophageal Reflux, Chronic Constipation Musculoskeletal: Yes Arthritis, Chronic Back Pain Endocrine: Yes (THYROID NODULE) Diabetes, Insulin dep HEENT: Yes (ANGIOEDEMA OF TONGUE) Cataract Hearing Impairment: Hard of Hearing Cancer: No Psychosocial: Yes Sleep Difficulties, Anxiety, Depression Integumentary: No Blood Disorders: No Adverse Reaction/Blood Tranf: No Family Medical History Family history: Hypertension 03 FATHER Stroke 03 MOTHER No Pertinent Family Hx PSH: -CATARACT SURGERY -TURP 10/31/[address] LAROSE -CARDIAC CATHS--STENT X 1--LAST CATH 05/2017--PATENT STENT, NON-OCCLUSIVE CAD, NO INTERVENTION -CHOLECYSTETCOMY Physical Exam Vital Signs Vital Signs - First Documented Capillary Refill : Less Than 3 Seconds Height, Weight, BMI Height: 5'9.00" Weight: 260lbs. 0.0oz. [id number]; 29.00 BMI Method:Stated Stroke NIH Stroke Scale Assessment Level of Consciousness: 0=Alert (0), Level of Consciousness-Questions: 2 =Answer neither question (2), LOC Commands: 0=Performs both tasks (0), Visual Cardoso: 0=No visual loss (0), Facial Movement (Facial Paresis): 1=Minor paralysis (1), Motor Function-Arms Right: 0=No drift (0), Motor Function-Arms Left: 0=No drift (0), Motor Function-Legs Right: 0=No drift (0), Motor Function-Legs Left: 0=No drift (0), Limb Ataxia: 0=Absent (0), Sensory: 0=Normal:no loss (0), Best Language: 0=No aphasia (0), Dysarthria: 1=Mild to moderate loss (1), Extinction & Inattention: 0=No abnormality (0), Total: Progress/Results/Core Measures Results/Orders Lab Results Laboratory Tests Test 12/30/20 08:58 12/30/20 09:01 12/30/20 09:30 12/30/20 10:37 Range/Units White Blood Count 16.0 H 4.3-11.0 10^3/uL Red Blood Count 4.67 4.30-5.52 10^6/uL Hemoglobin 14.2 13.3-17.7 g/dL Hematocrit 44 40-54 % Mean Corpuscular Volume 93 80-99 fL Mean Corpuscular Hemoglobin 30 25-34 pg Mean Corpuscular Hemoglobin Concent 33 32-36 g/dL Red Cell Distribution Width 13.0 10.0-14.5 % Platelet Count 163 130-400 10^3/uL Mean Platelet Volume 10.6 9.0-12.2 fL Immature Granulocyte % (Auto) 1 % Neutrophils (%) (Auto) 83 H 42-75 % Lymphocytes (%) (Auto) 8 L 12-44 % Monocytes (%) (Auto) 8 0-12 % Eosinophils (%) (Auto) 0 0-10 % Basophils (%) (Auto) 0 0-10 % Neutrophils # (Auto) 13.3 H 1.8-7.8 10^3/uL Lymphocytes # (Auto) 1.2 1.0-4.0 10^3/uL Monocytes # (Auto) 1.3 H 0.0-1.0 10^3/uL Eosinophils # (Auto) 0.1 0.0-0.3 10^3/uL Basophils # (Auto) 0.0 0.0-0.1 10^3/uL Immature Granulocyte # (Auto) 0.1 0.0-0.1 10^3/uL Neutrophils % (Manual) 84 % Lymphocytes % (Manual) 6 % Monocytes % (Manual) 8 % Eosinophils % (Manual) 0 % Basophils % (Manual) 0 % Band Neutrophils 2 % Blood Morphology Comment NORMAL Prothrombin Time 14.4 12.2-14.7 SEC INR Comment 1.1 0.8-1.4 Activated Partial Thromboplast Time 27 24-35 SEC D-Dimer 0.89 H 0.00-0.49 UG/ML Sodium Level 132 L 135-145 MMOL/L Potassium Level 4.6 3.6-5.0 MMOL/L Chloride Level 95 L 98-107 MMOL/L Carbon Dioxide Level 26 21-32 MMOL/L Anion Gap 11 5-14 MMOL/L Blood Urea Nitrogen 20 H 7-18 MG/DL Creatinine 1.92 H 0.60-1.30 MG/DL Estimat Glomerular Filtration Rate 34 BUN/Creatinine Ratio 10 Glucose Level 283 H 70-105 MG/DL Calcium Level 9.0 8.5-10.1 MG/DL Corrected Calcium 9.2 8.5-10.1 MG/DL Total Bilirubin 0.9 0.1-1.0 MG/DL Aspartate Amino Transf (AST/SGOT) 14 5-34 U/L Alanine Aminotransferase (ALT/SGPT) 18 0-55 U/L Alkaline Phosphatase 82 40-136 U/L Troponin I 0.030 H <0.028 NG/ML C-Reactive Protein High Sensitivity 6.36 H 0.00-0.50 MG/DL Total Protein 6.9 6.4-8.2 GM/DL Albumin 3.7 3.2-4.5 GM/DL Procalcitonin 0.08 <0.10 NG/ML Glucometer 266 H 70-110 MG/DL Blood Gas Puncture Site L WRIST Blood Gas Patient Temperature 36.3 Arterial Blood pH 7.38 7.37-7.43 Arterial Blood Partial Pressure CO2 48 H 35-45 MMHG Arterial Blood Partial Pressure O2 120 H 79-93 MMHG Arterial Blood HCO3 28 H 23-27 MMOL/L Arterial Blood Total CO2 29.1 21.0-31.0 MMOL/L Arterial Blood Oxygen Saturation 98 94-100 % Arterial Blood Base Excess 2.7 H -2.5-2.5 MMOL/L David Test YES-POS Blood Gas Ventilator Setting NO Blood Gas Inspired Oxygen 6L Influenza Type A (RT-PCR) Not Detected Not Detecte Influenza Type B (RT-PCR) Not Detected Not Detecte SARS-CoV-2 RNA (RT-PCR) Not Detected Not Detecte Urine Color YELLOW Urine Clarity SL CLOUDY Urine pH 6.0 5-9 Urine Specific [place] 1.025 H 1.016-1.022 Urine Protein 2+ H NEGATIVE Urine Glucose (UA) NEGATIVE NEGATIVE Urine Ketones NEGATIVE NEGATIVE Urine Nitrite NEGATIVE NEGATIVE Urine Bilirubin NEGATIVE NEGATIVE Urine Urobilinogen 0.2 < = 1.0 MG/DL Urine Leukocyte Esterase 3+ H NEGATIVE Urine RBC (Auto) 2+ H NEGATIVE Urine RBC 2-5 H /HPF Urine WBC TNTC H /HPF Urine Crystals NONE /LPF Urine Bacteria LARGE H /HPF Urine Casts NONE /LPF Urine Mucus NEGATIVE /LPF Urine Culture Indicated YES My Orders Orders - MIRNA CARRION MD Cbc With Automated Diff (12/30/20:02) Protime With Inr (12/30/20:) Partial Thromboplastin Time (12/30/20 09:02) Comprehensive Metabolic Panel (12/30/20:02) Fibrin Degradation Products (12/30/20:02) Troponin I (12/30/20:02) Ua Culture If Indicated (12/30/20 09:02) Chest 1 View, Ap/Pa Only (12/30/20 09:02) Catheter(Urinary) Insert & Ass 03,15 (12/30/20 09:02) Ekg Tracing (12/30/20 09:02) Nothing By Mouth (12/30/20 Lunch) Accucheck Stat ONCE (12/30/20 09:02) Ed Iv/Invasive Line Start (12/30/20 09:02) Ed Iv/Invasive Line Start (12/30/20 09:02) Vital Signs Stroke Patient Q15M (12/30/20 09:02) Ct Head Wo-R/O Stroke (12/30/20 09:02) O2 (12/30/20 09:02) Intake & Output 06,14,22 (12/30/20 09:02) Monitor-Rhythm Ecg Trace Only (12/30/20 09:02) Dysphagia Screening Tool (12/30/20 09:02) Post Thrombolytic Adminstratio (12/30/20 09:02) Lipid Panel (12/31/20 06:00) Procalcitonin (Pct) (12/30/20 09:04) Hs C Reactive Protein (12/30/20 09:04) Covid 19 Inhouse Test (12/30/20 09:04) Influenza A And B By Pcr (12/30/20 09:04) Arterial Blood Gas (12/30/20 09:04) Manual Differential (12/30/20 08:58) Troponin I (12/30/20 11:00) Urine Culture (12/30/20 10:37) Meropenem (Merrem 500 Mg) (12/30/20 11:15) Vital Signs/I&O 12/30/20 12/30/20 08:56 08:56 Temp 36.3 Pulse 83 Resp 18 B/P (MAP) 129/70 (89) Pulse Ox 96 96 O2 Delivery Nasal Cannula Nasal Cannula O2 Flow Rate 6.00 6.00 Blood Pressure Mean: 89 FSBG Bedside Testing Finger Stick Blood Glucose: 266 Initial ECG Impression Date: Dec 30, 2020 Initial ECG Impression Time: 08:57 Initial ECG Rate: 80 Initial ECG Rhythm: Normal Sinus Comment Sinus rhythm with no ST elevation or depression. Right bundle branch block. No axis deviation. Departure Communication (Admissions) Time/Spoke to Admitting Phy: 11:12 Dr. Mullins Impression Primary Impression: UTI (urinary tract infection) Qualified Codes: N39.0 - Urinary tract infection, site not specified Additional Impressions: Weakness generalized Facial droop Disposition: ADMITTED INPATIENT Condition: Improved Admissions Decision to Admit Reason: Admit from ER (General) Decision to Admit/Date: Dec 30, 2020 Time/Decision to Admit Time: 11:12 Departure-Patient Inst. Referrals: VERENA LANCE MD (PCP/Family) Primary Care Physician MIRNA CARRION MD Dec 30, 2020 11:28
[2020-12-30] MEDS ORDERED: ONDANSETRON 4 MG/2 ML (SDV) Z0FRAN IVP PRN (14:00)
[2020-12-30] MEDS ORDERED: inSUlin ASPART (NovoLOG) 1 UNIT/0.01 ML (CHARGE PER UNIT) SC SCH ×3 (14:00→16:00)
[2020-12-30 14:03] VITALS: BP 104/70
--- NOTE | 2020-12-30 14:33 | History & Physical-Hospitalist ---
History of Present Illness HPI/Chief Complaint Pt is a 75yoCM with a PMH of HTN, CKD, IDDMII, HLD, CAD who presented to the ER from [facility] due to concerns for a stroke. He is able to give me very little history. He tells me that he has not been feeling well for the last week and has had generalized weakness. Per the ER note though he was noted to have l eft sided facial droop as well. He was activated as a stroke in the ER and NIH was 4 for memory issues, facial droop, mild dysarthria. CT head was negative. Due to creatinine he was unable to get a CTA. Per NH report he can normally bear weight and feed himself. He was admitted for further work up and MRI in the AM. Source: patient Date Seen 12/30/20 Time Seen by a Provider: 14:22 Attending Physician Lupe Mullins MD PCP Bhaskar Alcantara MD Referring Physician Date of Admission Dec 30, 2020 at 11:20 Home Medications & Allergies Home Medications Reviewed patient Home Medication Reconciliation performed by pharmacy medication reconciliations instructional media services technician and/or nursing. Patients Allergies have been reviewed. Allergies Allergies Coded Allergies Penicillins (Unverified Allergy, Mild, HIVES, 11/16/19) duloxetine HCl (Verified Allergy, Mild, 11/16/19) Past Bvzultg-Ppxfgh-Nsvmgl Hx Patient Social History Employed/Student: retired Smoking Status: Former Smoker Substance use?: No Alcohol Use?: No Pt feels they are or have been: No Immunizations Up To Date Date of Influenza Vaccine: Mar 07, 2017 First/Initial COVID19 Vaccinat: unk Date of Pneumonia Vaccine: Mar 07, 2010 Seasonal Allergies Seasonal Allergies: No Current Status Advance Directives: Yes Primary Language: Macedonian Preferred Spoken Language: Macedonian Past Medical History Surgeries: Cardiac, Coronary Stent, Eye Surgery, Transurethral Resection Pneumonia, Chronic Bronchitis, Sleep Apnea, COPD Currently Using CPAP: Yes Chronic Edema/Swelling, Coronary Artery Disease, High Cholesterol, Hypertension Dementia, Neuropathy Sexually Transmitted Disease: No HIV/AIDS: No Benign Prostatic Hyperpl, Prostate Problems, Neurogenic Bladder, UTI-Chronic Gastroesophageal Reflux, Chronic Constipation Arthritis, Chronic Back Pain Diabetes, Insulin dep Cataract Hearing Impairment: Hard of Hearing Sleep Difficulties, Anxiety, Depression Blood Disorders: No Adverse Reaction/Blood Tranf: No Family Medical History Reviewed Nursing Family Hx Family history: Hypertension 03 FATHER Stroke 03 MOTHER No Pertinent Family Hx PSH: -CATARACT SURGERY -TURP 10/31/[address] LAROSE -CARDIAC CATHS--STENT X 1--LAST CATH 05/2017--PATENT STENT, NON-OCCLUSIVE CAD, NO INTERVENTION -CHOLECYSTETCOMY Review of Systems Constitutional: see HPI, malaise, weakness Physical Exam Physical Exam Vital Signs Vital Signs - First Documented Capillary Refill : Less Than 3 Seconds Height, Weight, BMI Height: 5'9.00" Weight: 260lbs. 0.0oz. 117.283423iz; 36.40 BMI Method:Stated General Appearance: No Apparent Distress, Chronically ill, Obese HEENT: PERRL/EOMI, Moist Mucous Membranes; No Scleral Icterus (L), No Scleral Icterus (R) Neck: Full Range of Motion, Supple Respiratory: Lungs Clear, No Accessory Muscle Use, No Respiratory Distress Cardiovascular: Regular Rate, Rhythm, No JVD, No Murmur Gastrointestinal: Normal Bowel Sounds, Non Tender, Soft Extremity: Normal Capillary Refill, No Calf Tenderness, No Pedal Edema, Other (moves all extremities, flamer sealer strength intact bilaterally) Neurologic/Psychiatric: Alert, Other (oriented to person and place) Skin: Normal Color, Warm/Dry Results Results/Procedures Labs Laboratory Tests 12/31/20 05:40 01/01/21 04:20 Patient resulted labs reviewed. Imaging: Reviewed Imaging Report Imaging [facility], [place] NAME: GUALBERTO PARK [facility] REC#: [id number] PT STATUS: REG ER : 1945 PHYSICIAN: MIRNA CARRION MD ADMIT DATE: 12/30/20/ER Draft Date of Exam:12/30/20 CHEST 1 VIEW, AP/PA ONLY INDICATION: Fatigue and altered level of consciousness as well as left-sided facial droop. TIME OF EXAM: 10:09 a.m. Correlation is made with prior chest 10/07/2020. FINDINGS: The heart size is normal. The pulmonary vascularity is unremarkable. The lungs are clear. No infiltrate, effusion or pneumothorax is detected. IMPRESSION: No acute cardiopulmonary process is detected. Dictated on workstation # [id number] Dict: 12/30/20 1023 Trans: 12/30/20 1025 [facility] [id number] Interpreted by: LUIS BARTLETT MD Electronically signed by: [facility] [place], [place] NAME: GUALBERTO PARK [facility] REC#: [id number] PT STATUS: REG ER : 1945 PHYSICIAN: MIRNA CARRION MD ADMIT DATE: 12/30/20/ER Signed Date of Exam:12/30/20 CT HEAD WO-R/O STROKE INDICATION: Altered mental status and fatigue and left-sided facial droop. TECHNIQUE: Multiple contiguous axial images were obtained through the brain without the use of intravenous contrast. Auto Exposure Controls were utilized during the CT exam to meet ALARA standards for radiation dose reduction. COMPARISON: Comparison made to 10/05/2020. FINDINGS: There are diffuse atrophic changes. There are patchy low-density changes in the deep white matter, compatible with chronic ischemic change. There is no acute intracranial hemorrhage or subdural or epidural collection. The ventricles are normal in size. There are calcifications involving the carotid siphons and distal vertebral arteries. Orbital contents appear unremarkable. Calvarial windows are normal. IMPRESSION: Atrophic changes with chronic ischemic changes in deep white matter. No acute abnormality detected. Dictated by: Dictated on workstation # [id number] Dict: 12/30/20 1021 Trans: 12/30/20 1216 AS6 [id number] Interpreted by: TAY TOVAR MD Electronically signed by: TAY TOVAR MD 12/30/20 1216 Assessment/Plan Admission Diagnosis Facial droop and weakness Admission Status: Inpatient Order (span 2 midnights) Reason for Inpatient Admission: see below Assessment and Plan Facial droop and weakness rule out stroke CT head negative stroke orderset used PT/OT Dysphagia screen Telemetry MRI in AM UTI Was recently on Cefdinir Will treat with Merrem given recurrence and leukocytosis Not sepsis CKD At around baseline Unable to get CTA due to creatinine CAD HTN HLD Continue home meds resume home meds when available IDDMII SSI Resume home insulin when med rec done DVT ppx: Lovenox Diagnosis/Problems Diagnosis/Problems (1) Facial droop Status: Acute (2) UTI (urinary tract infection) Status: Acute Qualifiers: Urinary tract infection type: site unspecified Hematuria presence: without hematuria Qualified Codes: N39.0 - Urinary tract infection, site not specified (3) COPD (chronic obstructive pulmonary disease) Status: Acute (4) Hypertension Status: Chronic (5) Chronic renal insufficiency Status: Acute LUPE MULLINS MD Dec 30, 2020 14:33
--- NOTE | 2020-12-30 14:43 | Physical Therapy Progress Note ---
Therapy Progress Note Patient just admitted. PT will initiate evaluation in SHERLY Hendrix PT Dec 30, 2020 14:43
--- NOTE | 2020-12-30 14:46 | Occ Therapy Progress Note ---
Therapy Progress Note OT orders received. Pt just admitted to hospital, MRI planned for tomorrow AM. OT will evaluate tomorrow. MINOO ROB OT Dec 30, 2020 14:46
[2020-12-30] MEDS: NS IV 1000 ML 1,000 ML IV SCH (15:04)
[2020-12-30] MEDS ORDERED: BETH50TA2 PO (15:05)
[2020-12-30] MEDS ORDERED: GUAI400T62 PO (15:05)
[2020-12-30] MEDS ORDERED: LOSA50TA63 PO (15:05)
[2020-12-30 15:23] VITALS: BP 116/70
[2020-12-30] MEDS: inSUlin ASPART (NovoLOG) 1 UNIT/0.01 ML (CHARGE PER UNIT) SC SCH ×2 (15:31→21:00)
[2020-12-30] MEDS: MEROPENEM 500 MG/SWFI 10 ML IV PUSH IV SCH ×2 (19:50)
[2020-12-30 20:49] VITALS: BP 168/78
[2020-12-31] VITALS: BP 144/80
[2020-12-31] MEDS: NS IV 1000 ML 1,000 ML IV SCH ×2 (04:00→17:31)
[2020-12-31 04:22] VITALS: BP 150/69
[2020-12-31] MEDS: MEROPENEM 500 MG/SWFI 10 ML IV PUSH IV SCH ×8 (04:50→21:21)
[2020-12-31] MEDS: inSUlin ASPART (NovoLOG) 1 UNIT/0.01 ML (CHARGE PER UNIT) SC SCH ×4 (05:39→20:35)
[2020-12-31 05:59] LABS: HEMOGLOBIN 13.2 g/dL (13.3-17.7); MEAN PLATELET VOLUME 10.8 fL (9.0-12.2); WHITE BLOOD COUNT 9.2 10^3/uL (4.3-11.0)
[2020-12-31 06:15] LABS: POTASSIUM 4.1 MMOL/L (3.6-5.0)
[2020-12-31 06:17] LABS: CALCIUM 8.7 MG/DL (8.5-10.1)
[2020-12-31 06:21] LABS: CREATININE SERUM 1.52 MG/DL (0.60-1.30)
[2020-12-31 07:21] VITALS: BP 147/64
--- NOTE | 2020-12-31 09:32 | Physical Therapy Evaluation ---
PT Evaluation-General Medical Diagnosis Admission Date Dec 30, 2020 at 11:20 Medical Diagnosis: UTI/weakness/facial droop L Onset Date: Dec 30, 2020 Therapy Diagnosis Therapy Diagnosis: debility/weakness Height/Weight Height (Feet): 5 Height (Inches): 9.00 Weight (Pounds): 260 Weight (Ounces): 0.0 Precautions Precautions/Isolations: Fall Prevention, Standard Precautions Referral Physician: Harpreet Reason for Referral: Evaluation/Treatment Medical History Pertinent Medical History: Arthritis, CAD, COPD, DM, Dementia, HTN, Neuropathy Current History EMS secondary to weakness, confusion and left facial droop Reviewed History: Yes Social History Home: Assisted Living Prior Prior Level of Function SCALE: Activities may be completed with or without assistive devices. 4-Bsrcoubgjp-eisevsg completes the activity by him/herself with no assistance from a helper. 5-Set-up or Clean-up Assistance-helper sets up or cleans up; patient completes activity. [place] assists only prior to or following the activity. 4-Supervision or Touching Assistance-helper provides verbal cues and/or touching/steadying and/or contact guard assistance as patient completes activity. Assistance may be provided throughout the activity or intermittently. 3-Partial/Moderate Assistance-helper does LESS THAN HALF the effort. [place] lif ts, holds or supports trunk or limbs, but provides less than half the effort. 2-Substantial/Maximal Assistance-helper does MORE THAN HALF the effort. [place] lifts or holds trunk or limbs and provides more than half the effort. 8-Ziyfjijjz-qbwfln does ALL the effort. Patient does none of the effort to complete the activity. Or, the assistance of 2 or more helpers is required for the patient to complete the activity. If activity was not attempted, code reason: 7-Patient Refused. 9-Not Applicable-not attempted and the patient did not perform the activity before the current illness, exacerbation or injury. 10-Not Attempted due to Environmental Limitations-(lack of equipment, weather restraints, etc.). 88-Not Attempted due to Medical Conditions or Safety Concerns. Bed Mobility: 4 Transfers (B,C,W/C): 4 Gait: 4 Stairs: 9 Indoor Mobility (Ambulation): Needed Some Help Prior Devices Use: Walker PT Evaluation-Current Subjective Patient agrees to PT. Objective Patient Orientation: Confused Attachments: Oxygen, Shafer Catheter, IV ROM/Strength ROM Lower Extremities bilateral LE WFL Strength Lower Extremities 3/5 grossly bilateral LE Integumentary/Posture Bladder Incontinence: Shafer Cath Posture kyphotic Neuromuscular (Tone, Coordination, Reflexes) grossly intact Sensory Vision: Functional Hearing: Impaired Transfers Roll Left to Right (QC): 2 Sit to Lying (QC): 2 Lying to Sitting/Side of Bed(Q: 2 Sit to Stand (QC): 3 Chair/Mgi-oz-Xhjbf Xfer(QC): 3 Gait Does the Patient Walk?: Yes Mode of Locomotion: Walk Anticipated Mode of Locomotion: Walk Walk 10 feet (QC): 3 Walk 50 ft with 2 Turns(QC): 88 Walk 150 ft (QC): 88 Distance: 15' Gait Assistive Device: FWW Comments/Gait Description shuffle gait sequence with PT assist for FWW advancement Balance Sitting Static: Fair Sitting Dynamic: Fair Standing Static: Fair Standing Dynamic: Fair Assessment/Needs 75 y.o. male, will be seen by skilled PT to address functional strength and mobility to improve current LOF. Rehab Potential: Fair PT Retail Greeting Card Merchandiser Goals Retail Greeting Card Merchandiser Goals PT Retail Greeting Card Merchandiser Goals Time Frame: Jan 15, 2021 Roll Left & Right (QC): 4 Sit to Lying (QC): 4 Lying-Sitting on Side/Bed(QC): 4 Sit to Stand (QC): 4 Chair/Mcr-lq-Ydvwm Xfer(QC): 4 Toilet Transfer (QC): 4 Does the Patient Walk: Yes Walk 10 feet (QC): 4 Walk 50ft with 2 Turns (QC): 4 Walk 150 ft (QC): 4 PT Plan Problem List Problem List: Activity Tolerance, Functional Strength, Safety, Balance, Gait, Transfer, Bed Mobility Treatment/Plan Treatment Plan: Continue Plan of Care Treatment Plan: Bed Mobility, Education, Functional Activity Mehdi, Functional Strength, Gait, Safety, Therapeutic Exercise, Transfers Treatment Duration: Jan 15, 2021 Frequency: 6 times per week Estimated Hrs Per Day: .25 hour per day Patient and/or Family Agrees t: Yes Time/GCodes Time In: 830 Time Out: 842 Total Billed Treatment Time: 12 Total Billed Treatment 1 visit EVModC 12 min SHERLY BRADLEY PT Dec 31, 2020 09:32
[2020-12-31 11:02] VITALS: BP 168/83
--- NOTE | 2020-12-31 12:14 | Occupational Therapy Eval ---
OT Evaluation-General/PLF Medical Diagnosis Admission Date Dec 30, 2020 at 11:20 Medical Diagnosis: UTI/weakness/facial droop L Onset Date: Dec 30, 2020 Therapy Diagnosis Therapy Diagnosis: decreased ADL status Height/Weight Height (Feet): 5 Height (Inches): 9.00 Weight (Pounds): 260 Weight (Ounces): 0.0 Precautions Precautions/Isolations: Fall Prevention, Standard Precautions Referral Physician: Harpreet Referral Reason: Evaluation/Treatment Medical History Pertinent Medical History: Arthritis, CAD, COPD, DM, Dementia, HTN, Neuropathy Additional Medical History CKD, HLD, coronary stent, neurogenic bladder, GERD, anxiety/depression Current History ED from [facility] 12/30/20 due to concerns for stroke. L facial droop and mild dysarthria. Social History Home: Assisted Living ADL-Prior Level of Function SCALE: Activities may be completed with or without assistive devices. 1-Agkexxwpyt-ozfovtg completes the activity by him/herself with no assistance from a helper. 5-Set-up or Clean-up Assistance-helper sets up or cleans up; patient completes activity. [place] assists only prior to or following the activity. 4-Supervision or Touching Assistance-helper provides verbal cues and/or touchi ng/steadying and/or contact guard assistance as patient completes activity. Assistance may be provided throughout the activity or intermittently. 3-Partial/Moderate Assistance-helper does LESS THAN HALF the effort. [place] lifts, holds or supports trunk or limbs, but provides less than half the effort. 2-Substantial/Maximal Assistance-helper does MORE THAN HALF the effort. [place] lifts or holds trunk or limbs and provides more than half the effort. 4-Dlrzhwixk-cqvgfi does ALL the effort. Patient does none of the effort to complete the activity. Or, the assistance of 2 or more helpers is required for the patient to complete the activity. If activity was not attempted, code reason: 7-Patient Refused. 9-Not Applicable-not attempted and the patient did not perform the activity before the current illness, exacerbation or injury. 10-Not Attempted due to Environmental Limitations-(lack of equipment, weather restraints, etc.). 88-Not Attempted due to Medical Conditions or Safety Concerns. ADL PLOF Comments Pt indicates he has assistance with all ADLs at [facility], and uses a walker for functional mobility with assistance. Pt unable to provide information about how much assistance was provided with tasks, but he indicates he has assistance with showering and dressing. Self Care: Needed Some Help OT Current Status Subjective Pt seated in recliner, agreeable to OT evaluation Mental Status/Objective Patient Orientation: Person, Confused Attachments: Shafer Catheter, IV, Oxygen Current Dentures/Partials: Yes Hand Dominance: Left Upper Extremity ROM WFL, BUE shoulder flexion to approx 130 degrees, equal on each side. Upper Extremity Coordination WFL Upper Extremity Sensation WFL, pt reports intact light touch sensation Upper Extremity Strength grossly 3+/5 BUEs ADL-Treatment Eating (QC): 88 (currently NPO) Oral Hygiene (QC): 3 (OT rinsed and washed dentures, pt able to place in mouth.) Other Treatments Pt seated in recliner. OT educated pt on purpose and benefit of OT, he verbalized understanding. Pt provided information about PLOF and home set up, and participated in UE screen. OT washed pt's dentures, he was then able to place in mouth, correctly placing them after 2 trials. In order to increase BUE strength and activity tolerance, pt completed x10 reps each of the following BUE exercises: shoulder flexion, elbow flexion/extension, and finger flexion/extension. Pt's ROM equal bilaterally throughout exercises. Pt instructed to complete 2-3 times a day increasing reps as tolerated. Post tx, pt seated in recliner, call light in reach and all needs met, chair alarm activated. Education OT Patient Education: Correct positioning, Exercise program, Home exercise program, Modified ADL techniques, Progress toward Goal/Update tx plan, Purpose of tx/functional activities, Rehab process Teaching Recipient: Patient Teaching Methods: Discussion Response to Teaching: Verbalize Understanding, Reinforcement Needed OT Longterm Goals Funeral Sales Manager Goals Time Frame: Jan 07, 2021 Eating (QC): 5 Oral Hygiene (QC): 4 Toileting Hygiene (QC): 4 Shower/Bathe Self (QC): 4 Upper Body Dressing (QC): 5 Lower Body Dressing (QC): 4 On/Off Footwear (QC): 4 Additional Goals: 1-Demonstrate ADL Tasks, 2-Verbalize Understanding, 3- ImproveStrength/Mehdi 1=Demonstrate adherence to instructed precautions during ADL tasks. 2=Patient will verbalize/demonstrate understanding of assistive devices/modifications for ADL. 3=Patient will improve strength/tolerance for activity to enable patient to perform ADL's. OT Education/Plan Problem List/Assessment Assessment: Decreased Activ Tolerance, Decreased UE Strength, Impaired Funct Balance, Impaired I ADL's, Impaired Self-Care Skills, Restricted Funct UE ROM Discharge Recommendations Plan/Recommendations: Continue POC Treatment Plan/Plan of Care Patient would benefit from OT for education, treatment and training to promote independence in ADL's, mobility, safety and/or upper extremity function for ADL's. Plan of Care: ADL Retraining, Functional Mobility, UE Funct Exercise/Act Treatment Duration: Jan 07, 2021 Frequency: 5 times per week Estimated Hrs Per Day: .25 hour per day Rehab Potential: Fair Time/GCodes Start Time: 11:04 Stop Time: 11:14 Total Time Billed (hr/min): 10 Billed Treatment Time 1, MINOO SANTANA OT Dec 31, 2020 12:14
--- NOTE | 2020-12-31 12:50 | Progress Note - Hospitalist ---
Subjective HPI/CC On Admission Date Seen by Provider: Dec 31, 2020 Time Seen by Provider: 11:20 Pt is a 75yoCM with a PMH of HTN, CKD, IDDMII, HLD, CAD who presented to the ER from [facility] due to concerns for a stroke. He is able to give me very little history. He tells me that he has not been feeling well for the last week and has had generalized weakness. Per the ER note though he was noted to have left sided facial droop as well. He was activated as a stroke in the ER and NIH was 4 for memory issues, facial droop, mild dysarthria. CT head was negative. Due to creatinine he was unable to get a CTA. Per NH report he can normally bear weight and feed himself. He was admitted for further work up and MRI in the AM. Subjective/Events-last exam Pt reports feeling better today. Discussed plan for MRI to rule out stroke. He states he did not have a stroke. Still agreeable to MRi though. Did not pass bedside dysphagia screen and speech pathologist out. Much more alert than yesterday though so asked RN to repeat it today. Objective Exam Vital Signs Vital Signs Date Time Temp Pulse Resp B/P (MAP) Pulse Ox O2 Delivery O2 Flow Rate FiO2 01/01/21 11:00 36.0 64 22 146/81 (102) 97 Nasal Cannula 3.00 Capillary Refill : Less Than 3 Seconds General Appearance: No Apparent Distress, Chronically ill, Obese Respiratory: Lungs Clear, No Respiratory Distress Cardiovascular: Regular Rate, Rhythm, No Murmur Extremity: No Calf Tenderness, No Pedal Edema Neurologic/Psychiatric: Alert, Oriented x3 Results/Procedures Lab Laboratory Tests 01/01/21 04:20 Patient resulted labs reviewed. Imaging: Reviewed Imaging Report Assessment/Plan Assessment and Plan Assess & Plan/Chief Complaint Facial droop and weakness rule out stroke CT head negative stroke orderset used PT/OT Dysphagia screen Telemetry MRI today Start ASA Continue home statin UTI Was recently on Cefdinir Continue Merrem given recurrence and leukocytosis Not sepsis CKD At around baseline Unable to get CTA due to creatinine CAD HTN HLD Continue home meds resume home meds when available IDDMII SSI Resume home insulin when med rec done DVT ppx: Lovenox Diagnosis/Problems Diagnosis/Problems (1) Facial droop Status: Acute (2) UTI (urinary tract infection) Status: Acute Qualifiers: Urinary tract infection type: site unspecified Hematuria presence: without hematuria Qualified Codes: N39.0 - Urinary tract infection, site not specified (3) COPD (chronic obstructive pulmonary disease) Status: Acute (4) Hypertension Status: Chronic (5) Chronic renal insufficiency Status: Acute LUPE ALVES MD Dec 31, 2020 12:50
[2020-12-31] MEDS ORDERED: ACETAMINOPHEN 325 MG TABLET PO PRN (13:00)
[2020-12-31] MEDS ORDERED: GUAIFENESIN 600 MG PO PRN (13:00)
[2020-12-31] MEDS ORDERED: HYDROcodone/APAP 5 MG/325 MG (LORTAB) TAB PO PRN (13:00)
[2020-12-31] MEDS ORDERED: guaiFENesin (MUCINEX) 600 MG TAB PO PRN (13:00)
[2020-12-31] MEDS ORDERED: NON-FORMULARY MEDICATION 1 EA EA (Bethanechol Chloride 50 MG) PO SCH (13:00)
[2020-12-31] MEDS ORDERED: ASPIRIN E.C. 81 MG (ECOTRIN) TAB PO NR (13:00)
[2020-12-31] MEDS: ENOXAPARIN 40 MG/0.4 ML (LOVENOX) SYR SQ SCH (14:41)
[2020-12-31] MEDS: NYSTATIN CREAM (MYCOSTATIN) 30 GM TUBE TP SCH ×2 (14:42→21:22)
[2020-12-31 15:25] VITALS: BP 198/93
[2020-12-31] MEDS: BETHANECHOL 25 MG (URECHOLINE) TAB PO SCH ×2 (17:31→21:20)
[2020-12-31 20:20] VITALS: BP 170/93
[2020-12-31] MEDS ORDERED: INSULIN GLARGINE HUM REC ANLOG 48 UNIT SQ SCH (21:00)
[2020-12-31] MEDS ORDERED: [UNRECOGNIZED DRUG - OTHER] SQ SCH (21:00)
[2020-12-31] MEDS ORDERED: NON-FORMULARY MEDICATION 1 EA EA (Cranberry Fruit (Cranberry) 450 MG) PO SCH (21:00)
[2020-12-31] MEDS: DOCUSATE SODIUM 100 MG (COLACE) CAP PO SCH (21:20)
[2020-12-31] MEDS: traZODone 150 MG (DESYREL) TABLET PO SCH (21:20)
[2020-12-31] MEDS: risperiDONE 2 MG (RisperDAL) TAB PO SCH (21:21)
[2020-12-31] MEDS: meTOprolol TARTRATE 50 MG (LOPRESSOR) TAB PO SCH (21:21)
[2020-12-31] MEDS: SIMvastatin 10 MG (ZOCOR) TAB PO SCH (21:21)
[2021-01-01] VITALS (8 sets, daily range): BP systolic 138–185; BP diastolic 81–95
[2021-01-01] MEDS: MEROPENEM 500 MG/SWFI 10 ML IV PUSH IV SCH ×8 (03:31→21:53)
[2021-01-01 05:11] LABS: HEMOGLOBIN 13.7 g/dL (13.3-17.7); MEAN PLATELET VOLUME 10.8 fL (9.0-12.2)
[2021-01-01 05:29] LABS: POTASSIUM 4.2 MMOL/L (3.6-5.0)
[2021-01-01 05:30] LABS: CALCIUM 9.1 MG/DL (8.5-10.1)
[2021-01-01] MEDS: inSUlin ASPART (NovoLOG) 1 UNIT/0.01 ML (CHARGE PER UNIT) SC SCH ×4 (05:31→21:24)
[2021-01-01 05:35] LABS: CREATININE SERUM 1.18 MG/DL (0.60-1.30)
[2021-01-01] MEDS: KCL 20 MEQ TAB (K-DUR) PO SCH (06:07)
[2021-01-01] MEDS: BETHANECHOL 25 MG (URECHOLINE) TAB PO SCH ×4 (06:07→21:53)
[2021-01-01] MEDS: NS IV 1000 ML 1,000 ML IV SCH (06:08)
[2021-01-01] MEDS ORDERED: NON-FORMULARY MEDICATION 1 EA EA (Tiotropium Bromide (Spiriva Respimat 2.5MCG/ACTUATION) 2 IH SCH (09:00)
[2021-01-01] MEDS ORDERED: NON-FORMULARY MEDICATION 1 EA EA (Potassium Chloride 20 MEQ) PO SCH (09:00)
[2021-01-01] MEDS ORDERED: NON-FORMULARY MEDICATION 1 EA EA (Bupropion HCl (Wellbutrin Xl) 300 MG) PO SCH (09:00)
[2021-01-01] MEDS: UMECLIDINIUM BROMIDE (INCRUSE ELLIPTA) 7'S IH SCH (09:07)
[2021-01-01] MEDS: FUROSEMIDE 20 MG (LASIX) TAB PO SCH (09:19)
[2021-01-01] MEDS: ASPIRIN E.C. 81 MG (ECOTRIN) TAB PO SCH (09:19)
[2021-01-01] MEDS: buPROPion SR 150 MG (WELLBUTRIN SR) TAB PO SCH ×2 (09:20→16:41)
[2021-01-01] MEDS: meTOprolol TARTRATE 50 MG (LOPRESSOR) TAB PO SCH ×2 (09:20→21:53)
[2021-01-01] MEDS: NYSTATIN CREAM (MYCOSTATIN) 30 GM TUBE TP SCH ×3 (09:20→21:55)
[2021-01-01] MEDS: LOSARTAN 50 MG (COZAAR) TAB PO SCH (09:20)
[2021-01-01] MEDS: DOCUSATE SODIUM 100 MG (COLACE) CAP PO SCH ×2 (09:20→21:53)
[2021-01-01] MEDS: PANTOPRAZOLE 40 MG (PROTONIX) TAB PO SCH (09:20)
[2021-01-01] MEDS: ASCORBIC ACID (VIT C) 500 MG TABLET PO SCH (09:20)
[2021-01-01] MEDS: risperiDONE 2 MG (RisperDAL) TAB PO SCH ×2 (09:20→21:53)
--- NOTE | 2021-01-01 11:02 | Physical Therapy Daily Note ---
PT Daily Note-Current Subjective Pt is up in the bedside chair. He is agreeable to treatment. Mental Status Patient Orientation: Person, Place Attachments: Oxygen, Shafer Catheter, IV Transfers SCALE: Activities may be completed with or without assistive devices. 1-Hrvmwgtrer-tprvzpb completes the activity by him/herself with no assistance from a helper. 5-Set-up or Clean-up Assistance-helper sets up or cleans up; patient completes activity. [place] assists only prior to or following the activity. 4-Supervision or Touching Assistance-helper provides verbal cues and/or touching/steadying and/or contact guard assistance as patient completes activity. Assistance may be provided throughout the activity or intermittently. 3-Partial/Moderate Assistance-helper does LESS THAN HALF the effort. [place] lifts, holds or supports trunk or limbs, but provides less than half the effort. 2-Substantial/Maximal Assistance-helper does MORE THAN HALF the effort. [place] lifts or holds trunk or limbs and provides more than half the effort. 6-Vkultjegx-ppnzsh does ALL the effort. Patient does none of the effort to complete the activity. Or, the assistance of 2 or more helpers is required for the patient to complete the activity. If activity was not attempted, code reason: 7-Patient Refused. 9-Not Applicable-not attempted and the patient did not perform the activity before the current illness, exacerbation or injury. 10-Not Attempted due to Environmental Limitations-(lack of equipment, weather restraints, etc.). 88-Not Attempted due to Medical Conditions or Safety Concerns. Sit to Stand (QC): 2 Gait Training Does the Patient Walk?: No and Walking Goal IS indicated Gait Assistive Device: FWW Pt was only able to tolerate standing for 10 seconds before having to sit. He attempted to stand and walk 2 more times with similar results. Exercises Seated Therapy Exercises: LE Protocol Seated Reps: 20 Treatments Sit to stand 3x with max assist. Pt able to stand for 10 seconds, 8 seconds, and 5 seconds with max assist. Assessment Current Status: Poor Progress Pt was ambulating at the evaluation yesterday, but was too weak/lethargic to tolerate prolonged standing today. PT Half-Way Goals Half-Way Goals PT Leasing Machine Tender Goals Time Frame: Jan 15, 2021 Roll Left & Right (QC): 4 Sit to Lying (QC): 4 Lying-Sitting on Side/Bed(QC): 4 Sit to Stand (QC): 4 Chair/Qli-zv-Xcyne Xfer(QC): 4 Toilet Transfer (QC): 4 Does the Patient Walk: Yes Walk 10 feet (QC): 4 Walk 50ft with 2 Turns (QC): 4 Walk 150 ft (QC): 4 PT Plan Treatment/Plan Treatment Plan: Continue Plan of Care Treatment Plan: Bed Mobility, Education, Functional Activity Mehdi, Functional Strength, Gait, Safety, Therapeutic Exercise, Transfers Treatment Duration: Jan 15, 2021 Frequency: 6 times per week Estimated Hrs Per Day: .25 hour per day Patient and/or Family Agrees t: Yes Time/GCodes Time In: 1040 Time Out: 1056 Total Billed Treatment Time: 16 Total Billed Treatment 1, fa 16 ZELDA SHANKS PT Jan 01, 2021 11:02
--- NOTE | 2021-01-01 12:02 | Progress Note - Hospitalist ---
Subjective HPI/CC On Admission Date Seen by Provider: Jan 01, 2021 Time Seen by Provider: 11:58 Pt is a 75yoCM with a PMH of HTN, CKD, IDDMII, HLD, CAD who presented to the ER from [facility] due to concerns for a stroke. He is able to give me very little history. He tells me that he has not been feeling well for the last week and has had generalized weakness. Per the ER note though he was noted to have left sided facial droop as well. He was activated as a stroke in the ER and NIH was 4 for memory issues, facial droop, mild dysarthria. CT head was negative. Due to creatinine he was unable to get a CTA. Per NH report he can normally bear weight and feed himself. He was admitted for further work up and MRI in the AM. Subjective/Events-last exam pt reports doing well. No complaints. Discussed c/s results and need for IV abx and will be in the hospital over the weekend. He agrees to plan. Objective Exam Vital Signs Vital Signs Date Time Temp Pulse Resp B/P (MAP) Pulse Ox O2 Delivery O2 Flow Rate FiO2 01/01/21 11:00 36.0 64 22 146/81 (102) 97 Nasal Cannula 3.00 Capillary Refill : Less Than 3 Seconds General Appearance: No Apparent Distress, Chronically ill, Obese Respiratory: Lungs Clear, No Respiratory Distress Cardiovascular: Regular Rate, Rhythm, No Murmur Neurologic/Psychiatric: Alert, Oriented x3 Results/Procedures Lab Laboratory Tests 01/01/21 04:20 Patient resulted labs reviewed. Imaging: Reviewed Imaging Report Assessment/Plan Assessment and Plan Assess & Plan/Chief Complaint Facial droop and weakness rule out stroke CT head negative PT/OT Dysphagia screen Telemetry MRI unable to be obtained due to patient's body habitus Continue ASA Continue home statin Like TIA or impact of UTI UTI Was recently on Cefdinir Continue Merrem given recurrence and leukocytosis Not sepsis cultures confirm ESBl e coli CKD At around baseline Unable to get CTA due to creatinine CAD HTN HLD Continue home meds IDDMII SSI Continue diagnosis DVT ppx: Lovenox Diagnosis/Problems Diagnosis/Problems (1) Facial droop Status: Acute (2) UTI (urinary tract infection) Status: Acute Qualifiers: Urinary tract infection type: site unspecified Hematuria presence: without hematuria Qualified Codes: N39.0 - Urinary tract infection, site not specified (3) COPD (chronic obstructive pulmonary disease) Status: Acute (4) Hypertension Status: Chronic (5) Chronic renal insufficiency Status: Acute LUPE ALVES MD Jan 01, 2021 12:02
[2021-01-01] MEDS: ENOXAPARIN 40 MG/0.4 ML (LOVENOX) SYR SQ SCH (13:27)
[2021-01-01] MEDS: traZODone 150 MG (DESYREL) TABLET PO SCH (21:53)
[2021-01-01] MEDS: SIMvastatin 10 MG (ZOCOR) TAB PO SCH (21:53)
[2021-01-02] VITALS (7 sets, daily range): BP systolic 142–182; BP diastolic 76–98
[2021-01-02] MEDS: MEROPENEM 500 MG/SWFI 10 ML IV PUSH IV SCH ×8 (04:33→21:45)
[2021-01-02] MEDS: inSUlin ASPART (NovoLOG) 1 UNIT/0.01 ML (CHARGE PER UNIT) SC SCH ×4 (05:35→20:14)
[2021-01-02] MEDS: KCL 20 MEQ TAB (K-DUR) PO SCH (05:53)
[2021-01-02] MEDS: BETHANECHOL 25 MG (URECHOLINE) TAB PO SCH ×4 (05:53→20:15)
[2021-01-02] MEDS: risperiDONE 2 MG (RisperDAL) TAB PO SCH ×2 (09:29→20:15)
[2021-01-02] MEDS: ASCORBIC ACID (VIT C) 500 MG TABLET PO SCH (09:29)
[2021-01-02] MEDS: meTOprolol TARTRATE 50 MG (LOPRESSOR) TAB PO SCH ×2 (09:29→20:15)
[2021-01-02] MEDS: FUROSEMIDE 20 MG (LASIX) TAB PO SCH (09:30)
[2021-01-02] MEDS: DOCUSATE SODIUM 100 MG (COLACE) CAP PO SCH ×2 (09:30→20:00)
[2021-01-02] MEDS: ASPIRIN E.C. 81 MG (ECOTRIN) TAB PO SCH (09:30)
[2021-01-02] MEDS: LOSARTAN 50 MG (COZAAR) TAB PO SCH (09:30)
[2021-01-02] MEDS: NYSTATIN CREAM (MYCOSTATIN) 30 GM TUBE TP SCH ×3 (09:30→20:15)
[2021-01-02] MEDS: buPROPion SR 150 MG (WELLBUTRIN SR) TAB PO SCH ×2 (09:30→16:44)
[2021-01-02] MEDS: PANTOPRAZOLE 40 MG (PROTONIX) TAB PO SCH (09:30)
--- NOTE | 2021-01-02 10:39 | Progress Note - Hospitalist ---
Subjective HPI/CC On Admission Date Seen by Provider: Jan 02, 2021 Time Seen by Provider: 10:37 Pt is a 75yoCM with a PMH of HTN, CKD, IDDMII, HLD, CAD who presented to the ER from [facility] due to concerns for a stroke. He is able to give me very little history. He tells me that he has not been feeling well for the last week and has had generalized weakness. Per the ER note though he was noted to have left sided facial droop as well. He was activated as a stroke in the ER and NIH was 4 for memory issues, facial droop, mild dysarthria. CT head was negative. Due to creatinine he was unable to get a CTA. Per NH report he can normally bear weight and feed himself. He was admitted for further work up and MRI in the AM. Subjective/Events-last exam Pt reports doing ok today. Was just up to chair from his bed and is tired. No complaints. His only request is to ask for his phone so he can talk to his when she calls. Objective Exam Vital Signs Vital Signs Date Time Temp Pulse Resp B/P (MAP) Pulse Ox O2 Delivery O2 Flow Rate FiO2 01/02/21 08:05 36.5 65 18 147/91 (109) 96 Nasal Cannula 3.00 Capillary Refill : Less Than 3 Seconds General Appearance: No Apparent Distress, WD/WN Respiratory: Lungs Clear, No Accessory Muscle Use Cardiovascular: Regular Rate, Rhythm, No Murmur Neurologic/Psychiatric: Alert, Oriented x3 Results/Procedures Lab Patient resulted labs reviewed. Imaging: Reviewed Imaging Report Assessment/Plan Assessment and Plan Assess & Plan/Chief Complaint Facial droop and weakness rule out stroke CT head negative PT/OT Dysphagia screen Telemetry MRI unable to be obtained due to patient's body habitus Continue ASA Continue home statin Like TIA or impact of UTI- symptoms resolved UTI Was recently on Cefdinir Continue Merrem for ESBl e coli Consider swing bed CKD At around baseline Unable to get CTA due to creatinine CAD HTN HLD Continue home meds IDDMII SSI Continue insulin DVT ppx: Lovenox Diagnosis/Problems Diagnosis/Problems (1) Facial droop Status: Acute (2) UTI (urinary tract infection) Status: Acute Qualifiers: Urinary tract infection type: site unspecified Hematuria presence: without hematuria Qualified Codes: N39.0 - Urinary tract infection, site not specified (3) COPD (chronic obstructive pulmonary disease) Status: Acute (4) Hypertension Status: Chronic (5) Chronic renal insufficiency Status: Acute LUPE ALVES MD Jan 02, 2021 10:39
[2021-01-02] MEDS: UMECLIDINIUM BROMIDE (INCRUSE ELLIPTA) 7'S IH SCH (11:14)
[2021-01-02] MEDS: ENOXAPARIN 40 MG/0.4 ML (LOVENOX) SYR SQ SCH (12:21)
[2021-01-02] MEDS: traZODone 150 MG (DESYREL) TABLET PO SCH (20:15)
[2021-01-02] MEDS: SIMvastatin 10 MG (ZOCOR) TAB PO SCH (20:15)
[2021-01-03 04:39] VITALS: BP 116/69
[2021-01-03] MEDS: MEROPENEM 500 MG/SWFI 10 ML IV PUSH IV SCH ×4 (04:59→09:14)
[2021-01-03] MEDS: inSUlin ASPART (NovoLOG) 1 UNIT/0.01 ML (CHARGE PER UNIT) SC SCH ×2 (06:28→11:42)
[2021-01-03] MEDS: KCL 20 MEQ TAB (K-DUR) PO SCH (06:33)
[2021-01-03] MEDS: BETHANECHOL 25 MG (URECHOLINE) TAB PO SCH ×2 (06:33→13:08)
[2021-01-03 08:00] VITALS: BP 166/89
[2021-01-03] MEDS: UMECLIDINIUM BROMIDE (INCRUSE ELLIPTA) 7'S IH SCH (08:47)
[2021-01-03] MEDS: buPROPion SR 150 MG (WELLBUTRIN SR) TAB PO SCH (09:14)
[2021-01-03] MEDS: risperiDONE 2 MG (RisperDAL) TAB PO SCH (09:14)
[2021-01-03] MEDS: PANTOPRAZOLE 40 MG (PROTONIX) TAB PO SCH (09:14)
[2021-01-03] MEDS: DOCUSATE SODIUM 100 MG (COLACE) CAP PO SCH (09:14)
[2021-01-03] MEDS: ASPIRIN E.C. 81 MG (ECOTRIN) TAB PO SCH (09:14)
[2021-01-03] MEDS: ASCORBIC ACID (VIT C) 500 MG TABLET PO SCH (09:14)
[2021-01-03] MEDS: FUROSEMIDE 20 MG (LASIX) TAB PO SCH (09:14)
[2021-01-03] MEDS: LOSARTAN 50 MG (COZAAR) TAB PO SCH (09:14)
[2021-01-03] MEDS: meTOprolol TARTRATE 50 MG (LOPRESSOR) TAB PO SCH (09:14)
[2021-01-03] MEDS: NYSTATIN CREAM (MYCOSTATIN) 30 GM TUBE TP SCH ×2 (09:16→13:08)
--- NOTE | 2021-01-03 10:27 | Physical Therapy Daily Note ---
PT Daily Note-Current Subjective Patient agrees to PT. No c/o. Mental Status Patient Orientation: Person, Time, Situation Attachments: Oxygen, Shafer Catheter Transfers SCALE: Activities may be completed with or without assistive devices. 9-Dzuixsztbt-dqkyepn completes the activity by him/herself with no assistance from a helper. 5-Set-up or Clean-up Assistance-helper sets up or cleans up; patient completes activity. [place] assists only prior to or following the activity. 4-Supervision or Touching Assistance-helper provides verbal cues and/or touching/steadying and/or contact guard assistance as patient completes activity. Assistance may be provided throughout the activity or intermittently. 3-Partial/Moderate Assistance-helper does LESS THAN HALF the effort. [place] lifts, holds or supports trunk or limbs, but provides less than half the effort. 2-Substantial/Maximal Assistance-helper does MORE THAN HALF the effort. [place] lifts or holds trunk or limbs and provides more than half the effort. 6-Lysjbvahb-sotlbh does ALL the effort. Patient does none of the effort to complete the activity. Or, the assistance of 2 or more helpers is required for the patient to complete the activity. If activity was not attempted, code reason: 7-Patient Refused. 9-Not Applicable-not attempted and the patient did not perform the activity before the current illness, exacerbation or injury. 10-Not Attempted due to Environmental Limitations-(lack of equipment, weather restraints, etc.). 88-Not Attempted due to Medical Conditions or Safety Concerns. Lying to Sitting/Side of Bed(Q: 3 Sit to Stand (QC): 3 Chair/Ggw-az-Edobq Xfer(QC): 3 Gait Training Does the Patient Walk?: Yes Distance: 50' Walk 10 feet (QC): 3 Walk 50 ft with 2 Turns(QC): 3 Gait Assistive Device: FWW slow, shuffle gait sequence Exercises Supine Ex: Heel Slides, Straight leg raise, Hip abd/add Supine Reps: 12 (AAROM) Seated Therapy Exercises: Ankle pumps, Long arc quads, Hip flexion Seated Reps: 12 Assessment Patient fatigues with minimal activity and is up in recliner with needs met. Increase activity as tolerated by patient. PT Supervisor Mixing Goals Supervisor Mixing Goals PT Care Home Goals Time Frame: Jan 15, 2021 Roll Left & Right (QC): 4 Sit to Lying (QC): 4 Lying-Sitting on Side/Bed(QC): 4 Sit to Stand (QC): 4 Chair/Slj-pl-Mfrem Xfer(QC): 4 Toilet Transfer (QC): 4 Does the Patient Walk: Yes Walk 10 feet (QC): 4 Walk 50ft with 2 Turns (QC): 4 Walk 150 ft (QC): 4 PT Plan Treatment/Plan Treatment Plan: Continue Plan of Care Treatment Plan: Bed Mobility, Education, Functional Activity Mehdi, Functional Strength, Gait, Safety, Therapeutic Exercise, Transfers Treatment Duration: Jan 15, 2021 Frequency: 6 times per week Estimated Hrs Per Day: .25 hour per day Patient and/or Family Agrees t: Yes Time/GCodes Time In: 810 Time Out: 833 Total Billed Treatment Time: 23 Total Billed Treatment 1 visit EX 10 min GT 13 min SHERLY BRADLEY PT Jan 03, 2021 10:27
[2021-01-03 12:00] VITALS: BP 164/99
[2021-01-03] MEDS: ENOXAPARIN 40 MG/0.4 ML (LOVENOX) SYR SQ SCH (13:07)
[2021-01-03] MEDS ORDERED: ASPI-1238 PO (13:20)
--- NOTE | 2021-01-03 13:25 | Discharge Summary ---
Discharge Summary Hospital Course Was the Problem List Reviewed?: Yes Problems/Dx: (1) UTI due to extended-spectrum beta lactamase (ESBL) producing Escherichia coli Status: Acute (2) Urinary tract infection due to ESBL Klebsiella Status: Acute (3) UTI (urinary tract infection) Status: Acute Qualifiers: Qualified Codes: N39.0 - Urinary tract infection, site not specified (4) Facial droop Status: Acute (5) COPD (chronic obstructive pulmonary disease) Status: Acute (6) Hypertension Status: Chronic (7) Chronic renal insufficiency Status: Acute Hospital Course Date of Admission: Dec 30, 2020 at 11:20 Admission Diagnosis : Strokelike symptoms Family Physician/Provider: Bhaskar Alcantara MD Date of Discharge: 01/03/21 Discharge Diagnosis: ESBL E. coli and ESBL Klebsiella urinary tract infections, possible TIA Hospital Course: Dick Ann is a 75-year-old male who was admitted with stroke-like symptoms. His CT scan was negative. He was unable to undergo an MRI due to body habitus. He was started on aspirin. He was continued on his statin. His symptoms resolved. His urinalysis revealed ESBL E. coli and ESBL Klebsiella urinary tract infections. He was transitioned to IV meropenem. He was discharged to swing bed for ongoing IV antibiotics. Labs and Pending Lab Test: Laboratory Tests 01/02/21 16:15: Glucometer 122H 01/02/21 20:14: Glucometer 130H 01/03/21 06:28: Glucometer 131H 01/03/21 11:21: Glucometer 134H Microbiology 12/30/20 Urine Culture - Final, Complete Escherichia coli Klebsiella pneumoniae Home Meds Active Reported Bethanechol Chloride 50 Mg Tablet 50 Mg PO WITH MEALS & BEDTIME Losartan Potassium 50 Mg Tablet 50 Mg PO DAILY Mucus Relief (Guaifenesin) 400 Mg Tablet 600 Mg PO QID PRN Metoprolol Tartrate 50 Mg Tablet 50 Mg PO BID Cranberry (Cranberry Fruit) 450 Mg Tablet 450 Mg PO BID Hydrocodone-Acetamin 5-325 mg (Hydrocodone/Acetaminophen) 1 Each Tablet 1 Each PO Q6H PRN Novolog Flexpen (Insulin Aspart) 300 Units/3 Ml Solution SQ TIDAC USE PER SLIDING SCALE: 151-200=2 UNITS 201-250=4 UNITS 251-300=6 UNITS 301-350=8 UNITS 351-400=10 UNITS >400 NOTIFY PCP Potassium Chloride 20 Meq Tablet.er 20 Meq PO DAILY Spiriva Respimat 2.5MCG/ACTUATION (Tiotropium [place]) 4 Gm Mist.inhal 2 Puff IH DAILY Nystatin 15 Gm Cream..g. 1 Applic TP TID APPLY TO REDDNESS IN FOLDS Ascorbic Acid 500 Mg Tablet 1,500 Mg PO DAILY Furosemide 20 Mg Tablet 20 Mg PO DAILY Zocor (Simvastatin) 10 Mg Tablet 10 Mg PO HS Wellbutrin Xl (Bupropion HCl) 300 Mg Tab.er.24h 300 Mg PO DAILY Tylenol (Acetaminophen) 325 Mg Tablet 650 Mg PO Q4H PRN TAKES 2 (325MG) TABS Trazodone HCl 150 Mg Tablet 150 Mg PO HS Risperidone 2 Mg Tablet 2 Mg PO BID Docusate Sodium 100 Mg Capsule 100 Mg PO BID Citalopram HBr (Citalopram Hydrobromide) 20 Mg Tablet 20 Mg PO DAILY Pantoprazole Sodium 40 Mg Tablet.dr 40 Mg PO DAILY Lantus Solostar (Insulin Glargine,Hum.rec.anlog) 100 Unit/1 Ml Insuln.pen 48 Uni ts SQ HS Assessment/Pt Instructions Take medications as prescribed. Follow-up with your primary care physician. Return with worsening symptoms. Discharge Planning: <30 minutes discharge planning Discharge Instructions Discharge Diet: No Restrictions Activity as Tolerated: Yes Discharge Physical Examination Vital Signs Vital Signs Date Time Temp Pulse Resp B/P (MAP) Pulse Ox O2 Delivery O2 Flow Rate FiO2 01/03/21 12:00 36.2 65 18 164/99 (120) 95 Nasal Cannula 2.00 General Appearance: No Apparent Distress, Obese Respiratory: Lungs Clear, Normal Breath Sounds, No Respiratory Distress Cardiovascular: Regular Rate, Rhythm, No Edema, No Murmur Gastrointestinal: Normal Bowel Sounds, Non Tender, Soft Extremity: Normal Inspection, Non Tender Skin: Normal Color, Warm/Dry Neurologic/Psychiatric: Alert, Oriented x3 Allergies: Coded Allergies: Penicillins (Unverified Allergy, Mild, HIVES, 11/16/19) duloxetine HCl (Verified Allergy, Mild, 11/16/19) Discharge Summary Date of Admission Dec 30, 2020 at 11:20 Date of Discharge Discharge Date: Jan 03, 2021 Discharge Time: 13:24 Admission Diagnosis Facial droop and weakness Discharge Diagnosis (1) UTI due to extended-spectrum beta lactamase (ESBL) producing Escherichia coli Status: Acute (2) Urinary tract infection due to ESBL Klebsiella Status: Acute (3) UTI (urinary tract infection) Status: Acute Qualifiers: Qualified Codes: N39.0 - Urinary tract infection, site not specified (4) Facial droop Status: Acute (5) COPD (chronic obstructive pulmonary disease) Status: Acute (6) Hypertension Status: Chronic (7) Chronic renal insufficiency Status: Acute SAMI LAM MD Jan 03, 2021 13:19
== END 2021-01-03 13:15 | disposition swing bed (61) | DRG 690 ==
LOC: EDUNIT# 08:56 → ER 08:57 → 4TH 11:20
PROVIDERS: ADMIT Family Medicine; ATTEND Family Medicine
DX: N39.0 Urinary tract infection, site not specified (principal); G45.9 Transient cerebral ischemic attack, unspecified; Z16.12 Extended spectrum beta lactamase (ESBL) resistance; R53.1 Weakness; I25.10 Atherosclerotic heart disease of native coronary artery without angina pectoris; J44.9 Chronic obstructive pulmonary disease, unspecified; F32.9 Major depressive disorder, single episode, unspecified; K21.9 Gastro-esophageal reflux disease without esophagitis; E78.00 Pure hypercholesterolemia, unspecified; I45.10 Unspecified right bundle-branch block; E11.42 Type 2 diabetes mellitus with diabetic polyneuropathy; F03.90 Unspecified dementia, unspecified severity, without behavioral disturbance, psychotic disturbance, mood disturbance, and anxiety; K59.09 Other constipation; G47.30 Sleep apnea, unspecified; R29.704 NIHSS score 4; I12.9 Hypertensive chronic kidney disease with stage 1 through stage 4 chronic kidney disease, or unspecified chronic kidney disease; N18.9 Chronic kidney disease, unspecified; E78.5 Hyperlipidemia, unspecified; B96.20 Unspecified Escherichia coli [E. coli] as the cause of diseases classified elsewhere; B96.1 Klebsiella pneumoniae [K. pneumoniae] as the cause of diseases classified elsewhere; Z95.5 Presence of coronary angioplasty implant and graft; Z79.4 Long term (current) use of insulin; Z87.891 Personal history of nicotine dependence; Z79.899 Other long term (current) drug therapy; Z20.822 Contact with and (suspected) exposure to COVID-19; Z88.0 Allergy status to penicillin
CPT/HCPCS: 36415; 70450; 71045; 80048; 80053; 80061; 81000; 82805; 82947; 84145; 84484; 85007; 85027; 85379; 85610; 85730; 86141; 87077; 87088; 87184; 87186; 87636; 93005; 93041; 94640; 94760; 96374

== ENCOUNTER 2021-01-03 12:03 | Inpatient (IN) | payer MEDICARE, MEDICAID ==
[~2021-01-03] VITALS: Ht 175 cm; Wt 111.5 kg
[~2021-01-03 12:03] MED LIST changes: +BETH50TA2 PO; +GUAI400T62 PO
[2021-01-03] MEDS ORDERED: ASPI-1238 PO (13:20)
[2021-01-03] MEDS ORDERED: HYDROcodone/APAP 5 MG/325 MG (LORTAB) TAB PO PRN (13:30)
[2021-01-03] MEDS ORDERED: MEROPENEM 500 MG in WATER (STERILE) FOR INJECTION 10 ML IV SCH (13:30)
[2021-01-03] MEDS ORDERED: ACETAMINOPHEN 325 MG TABLET PO PRN (13:30)
[2021-01-03] MEDS ORDERED: guaiFENesin (MUCINEX) 600 MG TAB PO PRN (13:30)
[2021-01-03] MEDS ORDERED: ONDANSETRON 4 MG/2 ML (SDV) Z0FRAN IVP PRN (13:30)
--- NOTE | 2021-01-03 14:25 | Physical Therapy Evaluation ---
PT Evaluation-General Medical Diagnosis Admission Date Jan 03, 2021 at 13:30 Medical Diagnosis: UTI Onset Date: Dec 30, 2020 Therapy Diagnosis Therapy Diagnosis: debility/weakness Height/Weight Height (Feet): 5 Height (Inches): 9.00 Weight (Pounds): 260 Weight (Ounces): 0.0 Referral Physician: Cristel Reason for Referral: Evaluation/Treatment Medical History Pertinent Medical History: Arthritis, CAD, COPD, DM, Dementia, HTN, Neuropathy Current History EMS secondary to weakness, confusion and left facial droop/SWB status Reviewed History: Yes Social History Home: Assisted Living Prior Prior Level of Function SCALE: Activities may be completed with or without assistive devices. 2-Mlhmtyfwdk-mhuteyy completes the activity by him/herself with no assistance from a helper. 5-Set-up or Clean-up Assistance-helper sets up or cleans up; patient completes activity. [place] assists only prior to or following the activity. 4-Supervision or Touching Assistance-helper provides verbal cues and/or touching/steadying and/or contact guard assistance as patient completes activity. Assistance may be provided throughout the activity or intermittently. 3-Partial/Moderate Assistance-helper does LESS THAN HALF the effort. [place] lifts, holds or supports trunk or limbs, but provides less than half the effort. 2-Substantial/Maximal Assistance-helper does MORE THAN HALF the effort. [place] lifts or holds trunk or limbs and provides more than half the effort. 8-Wumypgori-dtbkkx does ALL the effort. Patient does none of the effort to complete the activity. Or, the assistance of 2 or more helpers is required for the patient to complete the activity. If activity was not attempted, code reason: 7-Patient Refused. 9-Not Applicable-not attempted and the patient did not perform the activity before the current illness, exacerbation or injury. 10-Not Attempted due to Environmental Limitations-(lack of equipment, weather restraints, etc.). 88-Not Attempted due to Medical Conditions or Safety Concerns. Bed Mobility: 4 Transfers (B,C,W/C): 4 Gait: 4 Stairs: 9 Indoor Mobility (Ambulation): Needed Some Help Prior Devices Use: Walker PT Evaluation-Current Subjective Patient just completed OT session. Agrees to PT. Objective Patient Orientation: Person, Time, Situation Attachments: Oxygen, Shafer Catheter ROM/Strength ROM Lower Extremities bilateral LE WFL Strength Lower Extremities right knee flexion/extension 3/5; hip flexion3/5; DF/PF 3/5 left knee flexion/extension/3/5; hip flexion 3/5; DF/PF 3/5 Integumentary/Posture Integumentary refer to nursing notes Bladder Incontinence: Shafer Cath Posture kyphotic Neuromuscular (Tone, Coordination, Reflexes) slightly diminished coordination Sensory Vision: Functional Hearing: Functional Transfers Roll Left & Right (QC): 2 Sit to Lying (QC): 2 Lying to Sitting/Side of Bed(Q: 2 Sit to Stand (QC): 3 Chair/Obh-jt-Ucrps Xfer(QC): 3 Toilet Transfer (QC): 3 Car Transfer (QC): 3 (simulated) Gait Does the Patient Walk?: Yes Mode of Locomotion: Walk Anticipated Mode of Locomotion: Walk Walk 10 feet (QC): 3 Walk 50 ft with 2 Turns(QC): 3 Walk 150 ft (QC): 88 Walking 10ft/uneven surface-QC: 88 Distance: 50' Gait Assistive Device: FWW Comments/Gait Description slow, shuffle gait sequence Wheelchair Training Wheel 50 ft with 2 turns (QC): 9 Wheel 150 ft (QC): 9 Stairs 1 Step (curb) (QC): 9 4 Steps (QC): 9 12 Steps (QC): 9 Balance Sitting Static: Normal Sitting Dynamic: Normal Standing Static: Fair Standing Dynamic: Fair Picking up an Object (QC): 9 Treatment Gait train with FWW and minimal assist with noted shuffle gait sequence/WBOS with PT assist with turns due to weakness Assessment/Needs 75 y.o. male, will benefit from skilled PT to address functional strength and mobility to improve current LOF to safely return to AL at maximum LOF. Rehab Potential: Fair PT Drill Press Operator Numerical Control Goals Drill Press Operator Numerical Control Goals PT Assisted Goals Time Frame: Jan 22, 2021 Roll Left & Right (QC): 5 Sit to Lying (QC): 5 Lying-Sitting on Side/Bed(QC): 5 Sit to Stand (QC): 5 Chair/Itz-sx-Qsaqz Xfer(QC): 5 Toilet Transfer (QC): 5 Car Transfer (QC): 5 Does the Patient Walk: Yes Walk 10 feet (QC): 4 Walk 50ft with 2 Turns (QC): 4 Walk 150 ft (QC): 4 Walking 10ft on Uneven Surface: 4 1 Step (curb) (QC): 9 4 Steps (QC): 9 12 Steps (QC): 9 Picking up an Object (QC): 9 Wheel 50 feet with 2 turns (QC: 9 Wheel 150 feet: 9 PT Plan Problem List Problem List: Activity Tolerance, Functional Strength, Safety, Balance, Gait, Transfer, Bed Mobility Treatment/Plan Treatment Plan: Continue Plan of Care Treatment Plan: Bed Mobility, Education, Functional Activity Mehdi, Functional Strength, Gait, Safety, Therapeutic Exercise, Transfers Treatment Duration: Jan 22, 2021 Frequency: 6 times per week Estimated Hrs Per Day: .25 hour per day Patient and/or Family Agrees t: Yes Time/GCodes Time In: 1355 Time Out: 1418 Total Billed Treatment Time: 23 Total Billed Treatment 1 visit EVModC 8 min GT 15 min SHERLY BRADLEY PT Jan 03, 2021 14:24
--- NOTE | 2021-01-03 14:36 | Occupational Therapy Eval ---
OT Evaluation-General/PLF Medical Diagnosis Admission Date Jan 03, 2021 at 13:30 Medical Diagnosis: UTI Onset Date: Dec 30, 2020 Therapy Diagnosis Therapy Diagnosis: weakness, decreased ADL status Height/Weight Height (Feet): 5 Height (Inches): 9.00 Weight (Pounds): 260 Weight (Ounces): 0.0 Referral Physician: Cristel Referral Reason: Evaluation/Treatment Medical History Pertinent Medical History: Arthritis, CAD, COPD, DM, Dementia, HTN, Neuropathy Current History ED 12/30/20 from [facility] due to concerns for stroke, L facial droop and mild dysarthria. Pt transferred to [facility] 01/03/21 for continued medication management and skilled therapy. Social History Home: Assisted Living ADL-Prior Level of Function SCALE: Activities may be completed with or without assistive devices. 8-Vixwtidrkk-wuotuxw completes the activity by him/herself with no assistance from a helper. 5-Set-up or Clean-up Assistance-helper sets up or cleans up; patient completes activity. [place] assists only prior to or following the activity. 4-Supervision or Touching Assistance-helper provides verbal cues and/or touching/steadying and/or contact guard assistance as patient completes activity. Assistance may be provided throughout the activity or intermittently. 3-Partial/Moderate Assistance-helper does LESS THAN HALF the effort. [place] lifts, holds or supports trunk or limbs, but provides less than half the effort. 2-Substantial/Maximal Assistance-helper does MORE THAN HALF the effort. [place] lifts or holds trunk or limbs and provides more than half the effort. 4-Xepjmanim-bzkuiv does ALL the effort. Patient does none of the effort to com plete the activity. Or, the assistance of 2 or more helpers is required for the patient to complete the activity. If activity was not attempted, code reason: 7-Patient Refused. 9-Not Applicable-not attempted and the patient did not perform the activity before the current illness, exacerbation or injury. 10-Not Attempted due to Environmental Limitations-(lack of equipment, weather restraints, etc.). 88-Not Attempted due to Medical Conditions or Safety Concerns. ADL PLOF Comments Pt indicates he uses a FWW for functional mobility, required some assistance. He has assistance showering, dressing, and toileting. Pt states he does not complete any parts of shower, requiring total assist. He requires assistance with UE and LE dressing. Self Care: Needed Some Help Functional Cognition: Needed Some Help OT Current Status Subjective Pt upright in recliner, requesting to go back to bed. Agreeable to OT tx. Mental Status/Objective Patient Orientation: Person, Confused Attachments: Shafer Catheter, Oxygen Current Dentures/Partials: Yes Hand Dominance: Left Upper Extremity ROM WFL, BUE shoulder flexion to approx 140 degrees, equal bilaterally Upper Extremity Coordination WFL Upper Extremity Sensation WFL Upper Extremity Strength grossly 3+/5 BUEs, equal bilaterally ADL-Treatment Eating (QC): 5 (per pt report, able to eat using utensils.) Oral Hygiene (QC): 3 (assist provided in order to wash dentures, he was able to place in mouth) Shower/Bathe Self (QC): 2 (pt able to wash BUEs, stomach and periarea. OT washed buttocks, chest (for thoroughness), and BLEs thighs and lower legs/feet.) Upper Body Dressing (QC): 2 (pt required max A with changing hospital gown.) Lower Body Dressing (QC): 1 (based on clincial judgment, assist with all parts) On/Off Footwear (QC): 1 (assist donning/doffing gripper socks.) Toileting Hygiene (QC): 2 (per washed periarea, assist washing buttocks. Based on clinical judgment assist would be required for clothing management.) Other Treatments Pt seated in recliner, in order to increase BUE strength and activity tolerance, he completed x10 reps each of the following BUE exercises: shoulder flexion and elbow flexion/extension. Pt then completed sponge bath and ADLs as outlined above. Pt requests to return to bed, completing sit to stand transfer with mod A. Pt then turned to the bed, cues required to turn fully prior to sitting down, min A with transfer. Pt transferred supine, assist BLEs into bed, and assistance with positioning trunk towards center of bed. Post tx, pt laying in bed, call light in reach and all needs met. PT just entering room for tx. Education OT Patient Education: Correct positioning, Energy conservation, Exercise program, Modified ADL techniques, Progress toward Goal/Update tx plan, Purpose of tx/functional activities, Rehab process Teaching Recipient: Patient Teaching Methods: Discussion Response to Teaching: Verbalize Understanding, Reinforcement Needed OT Special Makeup Fx Artist Instructor Goals Special Makeup Fx Artist Instructor Goals Time Frame: Jan 21, 2021 Eating (QC): 5 Oral Hygiene (QC): 5 Toileting Hygiene (QC): 4 Shower/Bathe Self (QC): 3 Upper Body Dressing (QC): 4 Lower Body Dressing (QC): 3 On/Off Footwear (QC): 3 Additional Goals: 1-Demonstrate ADL Tasks, 2-Verbalize Understanding, 3- ImproveStrength/Mehdi 1=Demonstrate adherence to instructed precautions during ADL tasks. 2=Patient will verbalize/demonstrate understanding of assistive devices/modifications for ADL. 3=Patient will improve strength/tolerance for activity to enable patient to perform ADL's. OT Education/Plan Problem List/Assessment Assessment: Decreased Activ Tolerance, Decreased UE Strength, Impaired Bed Mobility, Impaired Funct Balance, Impaired I ADL's, Impaired Self-Care Skills Discharge Recommendations Plan/Recommendations: Continue POC Treatment Plan/Plan of Care Patient would benefit from OT for education, treatment and training to promote independence in ADL's, mobility, safety and/or upper extremity function for ADL's. Plan of Care: ADL Retraining, Functional Mobility, UE Funct Exercise/Act Treatment Duration: Jan 21, 2021 Frequency: 5 times per week Estimated Hrs Per Day: .25 hour per day Rehab Potential: Fair Time/GCodes Start Time: 13:30 Stop Time: 13:55 Total Time Billed (hr/min): 25 Billed Treatment Time 1, EVM (10'), ADL (15') MINOO ROB OT Jan 03, 2021 14:36
[2021-01-03] MEDS: inSUlin ASPART (NovoLOG) 1 UNIT/0.01 ML (CHARGE PER UNIT) SC SCH ×2 (16:24→20:47)
[2021-01-03] MEDS: BETHANECHOL 25 MG (URECHOLINE) TAB PO SCH ×2 (17:16→20:55)
[2021-01-03] MEDS: MEROPENEM 500 MG in WATER (STERILE) FOR INJECTION 10 ML IV SCH ×2 (17:17→22:41)
[2021-01-03] MEDS: buPROPion SR 150 MG (WELLBUTRIN SR) TAB PO SCH (17:22)
[2021-01-03 18:00] VITALS: BP 170/98
[2021-01-03] MEDS: SIMvastatin 10 MG (ZOCOR) TAB PO SCH (20:55)
[2021-01-03] MEDS: DOCUSATE SODIUM 100 MG (COLACE) CAP PO SCH (20:55)
[2021-01-03] MEDS: risperiDONE 2 MG (RisperDAL) TAB PO SCH (20:55)
[2021-01-03] MEDS: NYSTATIN CREAM (MYCOSTATIN) 30 GM TUBE TP SCH (20:56)
[2021-01-03] MEDS: meTOprolol TARTRATE 50 MG (LOPRESSOR) TAB PO SCH (20:58)
[2021-01-03] MEDS: traZODone 150 MG (DESYREL) TABLET PO SCH (20:58)
[2021-01-03 20:59] VITALS: BP 188/88
[2021-01-03] MEDS ORDERED: NON-FORMULARY MEDICATION 1 EA EA (Cranberry Fruit (Cranberry) 450 MG) PO SCH (21:00)
[2021-01-04 00:03] VITALS: BP 157/89
[2021-01-04 04:20] VITALS: BP 175/99
[2021-01-04] MEDS: MEROPENEM 500 MG in WATER (STERILE) FOR INJECTION 10 ML IV SCH ×4 (04:22→20:59)
[2021-01-04] MEDS: inSUlin ASPART (NovoLOG) 1 UNIT/0.01 ML (CHARGE PER UNIT) SC SCH ×4 (05:53→20:58)
[2021-01-04] MEDS: BETHANECHOL 25 MG (URECHOLINE) TAB PO SCH ×4 (05:53→20:57)
[2021-01-04] MEDS: KCL 20 MEQ TAB (K-DUR) PO SCH (05:55)
[2021-01-04] MEDS: UMECLIDINIUM BROMIDE (INCRUSE ELLIPTA) 7'S IH SCH (07:17)
[2021-01-04 08:16] VITALS: BP 156/68
--- NOTE | 2021-01-04 08:25 | Physical Therapy Progress Note ---
Therapy Progress Note GEAR ROOM KEEPER went in for tx at 8:18, but pt still eating breakfast. Pt request GEAR ROOM KEEPER check back at a later time. BRIDGETT VILLAFUERTE GEAR ROOM KEEPER Jan 04, 2021 08:25
[2021-01-04] MEDS: meTOprolol TARTRATE 50 MG (LOPRESSOR) TAB PO SCH ×2 (08:40→20:57)
[2021-01-04] MEDS: ASPIRIN E.C. 81 MG (ECOTRIN) TAB PO SCH (08:40)
[2021-01-04] MEDS: LOSARTAN 50 MG (COZAAR) TAB PO SCH (08:40)
[2021-01-04] MEDS: risperiDONE 2 MG (RisperDAL) TAB PO SCH ×2 (08:40→20:57)
[2021-01-04] MEDS: buPROPion SR 150 MG (WELLBUTRIN SR) TAB PO SCH ×2 (08:40→17:57)
[2021-01-04] MEDS: DOCUSATE SODIUM 100 MG (COLACE) CAP PO SCH ×2 (08:40→20:57)
[2021-01-04] MEDS: PANTOPRAZOLE 40 MG (PROTONIX) TAB PO SCH (08:40)
[2021-01-04] MEDS: ASCORBIC ACID (VIT C) 500 MG TABLET PO SCH (08:40)
[2021-01-04] MEDS: FUROSEMIDE 20 MG (LASIX) TAB PO SCH (08:40)
[2021-01-04] MEDS: NYSTATIN CREAM (MYCOSTATIN) 30 GM TUBE TP SCH ×3 (08:41→21:01)
[2021-01-04] MEDS: ENOXAPARIN 40 MG/0.4 ML (LOVENOX) SYR SQ SCH (13:11)
--- NOTE | 2021-01-04 13:19 | Occupational Ther Daily Note ---
OT Current Status-Daily Note Subjective Pt in bed, agreeable to OT tx. Mental Status/Objective Patient Orientation: Person, Confused Attachments: Shafer Catheter, Oxygen ADL-Treatment Therapy Code Descriptions/Definitions Functional [place] Measure: 0=Not Assessed/NA 4=Minimal Assistance 1=Total Assistance 5=Supervision or Setup 2=Maximal Assistance 6=Modified [place] 3=Moderate Assistance 7=Complete IndependenceSCALE: Activities may be completed with or without assistive devices. 8-Ejnebtdrnd-rdlqtch completes the activity by him/herself with no assistance from a helper. 5-Set-up or Clean-up Assistance-helper sets up or cleans up; patient completes activity. [place] assists only prior to or following the activity. 4-Supervision or Touching Assistance-helper provides verbal cues and/or touching/steadying and/or contact guard assistance as patient completes activity. Assistance may be provided throughout the activity or intermittently. 3-Partial/Moderate Assistance-helper does LESS THAN HALF the effort. [place] lifts, holds or supports trunk or limbs, but provides less than half the effort. 2-Substantial/Maximal Assistance-helper does MORE THAN HALF the effort. [place] l ifts or holds trunk or limbs and provides more than half the effort. 2-Escpfbsmf-flyjna does ALL the effort. Patient does none of the effort to complete the activity. Or, the assistance of 2 or more helpers is required for the patient to complete the activity. If activity was not attempted, code reason: 7-Patient Refused. 9-Not Applicable-not attempted and the patient did not perform the activity before the current illness, exacerbation or injury. 10-Not Attempted due to Environmental Limitations-(lack of equipment, weather restraints, etc.). 88-Not Attempted due to Medical Conditions or Safety Concerns. Other Treatment Pt laying in bed, transferred supine to sit EOB with Max A (assist with BLEs and trunk). Pt stood at EOB with mod A, then transferred to recliner, min A. Pt required skilled cues for UE placement with sit to/from stand transfers. OT assisted pt with positioning to comfort. In order to increase BUE strength and activity tolerance, pt completed x15 reps each of the following BUE exercises: shoulder flexion, elbow flexion, elbow extension. Pt took rest breaks between each exercise. Post tx, pt seated upright in recliner, call light in reach and all needs met, chair alarm activated. Education OT Patient Education: Correct positioning, Energy conservation, Exercise program, Modified ADL techniques, Progress toward Goal/Update tx plan, Purpose of tx/functional activities, Rehab process Teaching Recipient: Patient Teaching Methods: Discussion Response to Teaching: Verbalize Understanding OT Concrete Pump Operator Helper Goals [facility] Goals Time Frame: Jan 21, 2021 Eating (QC): 5 Oral Hygiene (QC): 5 Toileting Hygiene (QC): 4 Shower/Bathe Self (QC): 3 Upper Body Dressing (QC): 4 Lower Body Dressing (QC): 3 On/Off Footwear (QC): 3 Additional Goals: 1-Demonstrate ADL Tasks, 2-Verbalize Understanding, 3-Impr oveStrength/Mehdi 1=Demonstrate adherence to instructed precautions during ADL tasks. 2=Patient will verbalize/demonstrate understanding of assistive devices/modifications for ADL. 3=Patient will improve strength/tolerance for activity to enable patient to perform ADL's. OT Education/Plan Problem List/Assessment Assessment: Decreased Activ Tolerance, Decreased UE Strength, Impaired Bed Mobility, Impaired Funct Balance, Impaired I ADL's, Impaired Self-Care Skills Discharge Recommendations Plan/Recommendations: Continue POC Treatment Plan/Plan of Care Patient would benefit from OT for education, treatment and training to promote independence in ADL's, mobility, safety and/or upper extremity function for ADL's. Plan of Care: ADL Retraining, Functional Mobility, UE Funct Exercise/Act Treatment Duration: Jan 21, 2021 Frequency: 5 times per week Estimated Hrs Per Day: .25 hour per day Rehab Potential: Fair Time/GCodes Start Time: 11:40 Stop Time: 11:55 Total Time Billed (hr/min): 15 Billed Treatment Time 1, EX MINOO ROB OT Jan 04, 2021 13:19
--- NOTE | 2021-01-04 13:27 | Physical Therapy Daily Note ---
PT Daily Note-Current Subjective Pt in recliner upon arrival and agrees to tx. Mental Status Patient Orientation: Person, Confused Attachments: Oxygen (2), Shafer Catheter Transfers SCALE: Activities may be completed with or without assistive devices. 1-Voozlssfyb-jarpczo completes the activity by him/herself with no assistance from a helper. 5-Set-up or Clean-up Assistance-helper sets up or cleans up; patient completes activity. [place] assists only prior to or following the activity. 4-Supervision or Touching Assistance-helper provides verbal cues and/or touching/steadying and/or contact guard assistance as patient completes activi ty. Assistance may be provided throughout the activity or intermittently. 3-Partial/Moderate Assistance-helper does LESS THAN HALF the effort. [place] lifts, holds or supports trunk or limbs, but provides less than half the effort. 2-Substantial/Maximal Assistance-helper does MORE THAN HALF the effort. [place] lifts or holds trunk or limbs and provides more than half the effort. 2-Zxgjheboy-nnenxs does ALL the effort. Patient does none of the effort to complete the activity. Or, the assistance of 2 or more helpers is required for the patient to complete the activity. If activity was not attempted, code reason: 7-Patient Refused. 9-Not Applicable-not attempted and the patient did not perform the activity before the current illness, exacerbation or injury. 10-Not Attempted due to Environmental Limitations-(lack of equipment, weather restraints, etc.). 88-Not Attempted due to Medical Conditions or Safety Concerns. Roll Left & Right (QC): 3 Sit to Lying (QC): 3 Sit to Stand (QC): 3 Chair/Odl-ie-Vbjjd Xfer(QC): 3 Pt requires ModA for transfers and bed mobility along w/ VC and TC. Gait Training Does the Patient Walk?: Yes Distance: 10 Walk 10 feet (QC): 3 Gait Assistive Device: FWW Pt amb from recliner to bed, requiring ModA for stabilization and A w/ navigating FWW. Pt has short, shuffling gait w/ kyphotic posture. Exercises Supine Ex: Scooting, Straight leg raise, Hip abd/add Supine Reps: 5 Treatments Pt sit to stand from recliner and amb to bed. Pt sits EOB and is instructed on scooting towards HOB. Pt sit to supine, requiring [employer] RETAILER SALES CONSULTANT to A BLE into the bed. Pt attempted to scoot towards HOB once supine, scoots slightly. ATT RN walks in room and A [employer] RETAILER SALES CONSULTANT in scooting pt up towards HOB. Pt performs rolling, needing VC, TC, and ModA. Pt performs supine ex, and was left in bed with all needs met, call light in hand. Assessment Current Status: Fair Progress Pt was fatigued and distracted easily. Required multiple VC and TC to stay focused throughout tx. PT Skilled Nursing Goals Life Sciences Manager Goals PT Life Sciences Manager Goals Time Frame: Jan 22, 2021 Roll Left & Right (QC): 5 Sit to Lying (QC): 5 Lying-Sitting on Side/Bed(QC): 5 Sit to Stand (QC): 5 Chair/Uoj-jy-Cjsgh Xfer(QC): 5 Toilet Transfer (QC): 5 Car Transfer (QC): 5 Does the Patient Walk: Yes Walk 10 feet (QC): 4 Walk 50ft with 2 Turns (QC): 4 Walk 150 ft (QC): 4 Walking 10ft on Uneven Surface: 4 1 Step (curb) (QC): 9 4 Steps (QC): 9 12 Steps (QC): 9 Picking up an Object (QC): 9 Wheel 50 feet with 2 turns (QC: 9 Wheel 150 feet: 9 PT Plan Treatment/Plan Treatment Plan: Continue Plan of Care Treatment Plan: Bed Mobility, Education, Functional Activity Mehdi, Functional Strength, Gait, Safety, Therapeutic Exercise, Transfers Treatment Duration: Jan 22, 2021 Frequency: 6 times per week Estimated Hrs Per Day: .25 hour per day Patient and/or Family Agrees t: Yes Safety Risks/Education Patient Education: Gait Training, Correct Positioning Teaching Recipient: Patient Teaching Methods: Demonstration, Discussion Response to Teaching: Verbalize Understanding, Return Demonstration, Reinforcement Needed Time/GCodes Time In: 1300 Time Out: 1317 Total Billed Treatment Time: 17 Total Billed Treatment MIAH Virgen [place] [employer] RETAILER SALES CONSULTANT Jan 04, 2021 13:27
[2021-01-04 18:00] VITALS: BP 138/66
[2021-01-04] MEDS: SIMvastatin 10 MG (ZOCOR) TAB PO SCH (20:57)
[2021-01-04] MEDS: traZODone 150 MG (DESYREL) TABLET PO SCH (20:57)
[2021-01-05] MEDS: MEROPENEM 500 MG in WATER (STERILE) FOR INJECTION 10 ML IV SCH ×4 (04:38→21:58)
[2021-01-05 05:53] VITALS: BP 146/82
[2021-01-05] MEDS: inSUlin ASPART (NovoLOG) 1 UNIT/0.01 ML (CHARGE PER UNIT) SC SCH ×4 (06:20→21:55)
[2021-01-05] MEDS: BETHANECHOL 25 MG (URECHOLINE) TAB PO SCH ×4 (06:24→20:26)
[2021-01-05] MEDS: KCL 20 MEQ TAB (K-DUR) PO SCH (06:25)
[2021-01-05] MEDS: UMECLIDINIUM BROMIDE (INCRUSE ELLIPTA) 7'S IH SCH (08:06)
[2021-01-05] MEDS: buPROPion SR 150 MG (WELLBUTRIN SR) TAB PO SCH ×2 (08:40→17:51)
[2021-01-05] MEDS: risperiDONE 2 MG (RisperDAL) TAB PO SCH ×2 (08:41→20:23)
[2021-01-05] MEDS: PANTOPRAZOLE 40 MG (PROTONIX) TAB PO SCH (08:41)
[2021-01-05] MEDS: DOCUSATE SODIUM 100 MG (COLACE) CAP PO SCH ×2 (08:41→20:23)
[2021-01-05] MEDS: FUROSEMIDE 20 MG (LASIX) TAB PO SCH (08:41)
[2021-01-05] MEDS: meTOprolol TARTRATE 50 MG (LOPRESSOR) TAB PO SCH ×2 (08:41→20:23)
[2021-01-05] MEDS: ASPIRIN E.C. 81 MG (ECOTRIN) TAB PO SCH (08:41)
[2021-01-05] MEDS: ASCORBIC ACID (VIT C) 500 MG TABLET PO SCH (08:41)
[2021-01-05] MEDS: LOSARTAN 50 MG (COZAAR) TAB PO SCH (08:41)
[2021-01-05] MEDS: NYSTATIN CREAM (MYCOSTATIN) 30 GM TUBE TP SCH ×3 (08:42→20:26)
--- NOTE | 2021-01-05 11:17 | Progress Note - Hospitalist ---
Subjective HPI/CC On Admission Date Seen by Provider: Jan 05, 2021 Time Seen by Provider: 09:25 Subjective/Events-last exam He is doing well this morning. He denies any pain. He has been up and working with physical therapy but just walking around the room. He has been eating and drinking. He has no complaints or concerns. Objective Exam Vital Signs Vital Signs Date Time Temp Pulse Resp B/P (MAP) Pulse Ox O2 Delivery O2 Flow Rate FiO2 01/05/21 09:00 Nasal Cannula 2.00 01/05/21 08:06 94 01/05/21 05:53 35.5 65 18 146/82 (103) Capillary Refill : General Appearance: No Apparent Distress, Obese Respiratory: Lungs Clear, Normal Breath Sounds, No Respiratory Distress Cardiovascular: Regular Rate, Rhythm, No Edema, No Murmur Gastrointestinal: Normal Bowel Sounds, Non Tender, Soft Extremity: Normal Inspection, Non Tender, No Pedal Edema Neurologic/Psychiatric: Alert, Oriented x3, No Motor/Sensory Deficits, Normal Mood/Affect Skin: Normal Color, Warm/Dry Results/Procedures Lab Patient resulted labs reviewed. Imaging: Reviewed Imaging Report Assessment/Plan Assessment and Plan Assess & Plan/Chief Complaint Multi-drug resistant UTI ESBL E coli UTI ESBL Klebsiella pneumonia UTI Continue Merrem CKD Monitor CAD HTN HLD Continue home meds IDDMII SSI Continue insulin DVT ppx: Lovenox Diagnosis/Problems Diagnosis/Problems (1) UTI due to extended-spectrum beta lactamase (ESBL) producing Escherichia coli Status: Acute (2) Urinary tract infection due to ESBL Klebsiella Status: Acute (3) Chronic renal insufficiency Status: Acute SAMI LAM MD Jan 05, 2021 11:17
--- NOTE | 2021-01-05 11:25 | Occupational Ther Daily Note ---
OT Current Status-Daily Note Subjective Pt seated on BSC upon OT arrival, agreeable to OT Tx Mental Status/Objective Attachments: Shafer Catheter, Oxygen ADL-Treatment Therapy Code Descriptions/Definitions Functional [place] Measure: 0=Not Assessed/NA 4=Minimal Assistance 1=Total Assistance 5=Supervision or Setup 2=Maximal Assistance 6=Modified [place] 3=Moderate Assistance 7=Complete IndependenceSCALE: Activities may be completed with or without assistive devices. 8-Jhmpqzeffr-ebamwmc completes the activity by him/herself with no assistance from a helper. 5-Set-up or Clean-up Assistance-helper sets up or cleans up; patient completes activity. [place] assists only prior to or following the activity. 4-Supervision or Touching Assistance-helper provides verbal cues and/or touching/steadying and/or contact guard assistance as patient completes activity. Assistance may be provided throughout the activity or intermittently. 3-Partial/Moderate Assistance-helper does LESS THAN HALF the effort. [place] lifts, holds or supports trunk or limbs, but provides less than half the effort. 2-Substantial/Maximal Assistance-helper does MORE THAN HALF the effort. [place] lifts or holds trunk or limbs and provides more than half the effort. 1-Zwwlezetf-vnwgfu does ALL the effort. Patient does none of the effort to complete the activity. Or, the assistance of 2 or more helpers is required for the patient to complete the activity. If activity was not attempted, code reason: 7-Patient Refused. 9-Not Applicable-not attempted and the patient did not perform the activity before the current illness, exacerbation or injury. 10-Not Attempted due to Environmental Limitations-(lack of equipment, weather restraints, etc.). 88-Not Attempted due to Medical Conditions or Safety Concerns. Toileting Hygiene (QC): 2 (Assist with hygiene post BM) Toilet Transfer (QC): 3 (Mod A sit to stand from BSC) Other Treatment Pt seated on BSC, completed toileting. Pt completed sit to stand with mod A from BSC, pt required assist with hygiene post BM. Pt transferred to recliner, verbal and tactile cues required for positioning and UE placement. Post tx, pt seated upright in recliner, call light in reach and all needs met Education OT Patient Education: Correct positioning, Energy conservation, Modified ADL techniques, Progress toward Goal/Update tx plan, Purpose of tx/functional activities, Rehab process Teaching Recipient: Patient Teaching Methods: Discussion Response to Teaching: Verbalize Understanding OT Maintenance Worker House Trailer Goals Maintenance Worker House Trailer Goals Time Frame: Jan 21, 2021 Eating (QC): 5 Oral Hygiene (QC): 5 Toileting Hygiene (QC): 4 Shower/Bathe Self (QC): 3 Upper Body Dressing (QC): 4 Lower Body Dressing (QC): 3 On/Off Footwear (QC): 3 Additional Goals: 1-Demonstrate ADL Tasks, 2-Verbalize Understanding, 3- ImproveStrength/Mehdi 1=Demonstrate adherence to instructed precautions during ADL tasks. 2=Patient will verbalize/demonstrate understanding of assistive devices/modifications for ADL. 3=Patient will improve strength/tolerance for activity to enable patient to perform ADL's. OT Education/Plan Problem List/Assessment Assessment: Decreased Activ Tolerance, Decreased UE Strength, Impaired Funct Balance, Impaired I ADL's, Impaired Self-Care Skills Discharge Recommendations Plan/Recommendations: Continue POC Treatment Plan/Plan of Care Patient would benefit from OT for education, treatment and training to promote independence in ADL's, mobility, safety and/or upper extremity function for ADL's. Plan of Care: ADL Retraining, Functional Mobility, UE Funct Exercise/Act Treatment Duration: Jan 21, 2021 Frequency: 5 times per week Estimated Hrs Per Day: .25 hour per day Rehab Potential: Fair Time/GCodes Start Time: 10:25 Stop Time: 10:43 Total Time Billed (hr/min): 20 Billed Treatment Time 1, ADL MINOO ROB OT Jan 05, 2021 11:25
--- NOTE | 2021-01-05 11:26 | Physical Therapy Daily Note ---
PT Daily Note-Current Subjective Pt in bed upon arrival and agrees to tx. Pt has no c/o pain. Mental Status Patient Orientation: Person, Confused, Place Transfers SCALE: Activities may be completed with or without assistive devices. 2-Mjtiuugfhr-bdivzzn completes the activity by him/herself with no assistance from a helper. 5-Set-up or Clean-up Assistance-helper sets up or cleans up; patient completes activity. [place] assists only prior to or following the activity. 4-Supervision or Touching Assistance-helper provides verbal cues and/or touching/steadying and/or contact guard assistance as patient completes activity. Assistance may be provided throughout the activity or intermittently. 3-Partial/Moderate Assistance-helper does LESS THAN HALF the effort. [place] lifts, holds or supports trunk or limbs, but provides less than half the effort. 2-Substantial/Maximal Assistance-helper does MORE THAN HALF the effort. [place] lifts or holds trunk or limbs and provides more than half the effort. 2-Zpdywfutu-xnmstf does ALL the effort. Patient does none of the effort to complete the activity. Or, the assistance of 2 or more helpers is required for the patient to complete the activity. If activity was not attempted, code reason: 7-Patient Refused. 9-Not Applicable-not attempted and the patient did not perform the activity before the current illness, exacerbation or injury. 10-Not Attempted due to Environmental Limitations-(lack of equipment, weather restraints, etc.). 88-Not Attempted due to Medical Conditions or Safety Concerns. Lying to Sitting/Side of Bed(Q: 3 Sit to Stand (QC): 3 Chair/Vct-bn-Icnbn Xfer(QC): 3 Toilet Transfer (QC): 3 Pt supine to sitting, pt able to bring LE to EOB, but required A from DIESEL ENGINE MECHANIC to bring torso upright. Pt sit to stand required Min/ModA dependent on height of chair. Pt transfers Rg. Gait Training Does the Patient Walk?: Yes Distance: 10' Walk 10 feet (QC): 3 Gait Assistive Device: FWW Pt amb from bed to recliner, requiring Rg for stability. Pt WB through UE throughout amb. Treatments Pt performs bed mobility, followed by amb to recliner. Once pt sat in recliner, pt stated he needed to use restroom. Pt transferred to BSC. ATT OT enters room and DIESEL ENGINE MECHANIC leaves. Pt was left with call light in hand and all needs met. Assessment Current Status: Good Progress Pt shows overall weakness and fatigues easily. PT M1 Armor Crewman Goals M1 Armor Crewman Goals PT M1 Armor Crewman Goals Time Frame: Jan 22, 2021 Roll Left & Right (QC): 5 Sit to Lying (QC): 5 Lying-Sitting on Side/Bed(QC): 5 Sit to Stand (QC): 5 Chair/Idp-lb-Slnow Xfer(QC): 5 Toilet Transfer (QC): 5 Car Transfer (QC): 5 Does the Patient Walk: Yes Walk 10 feet (QC): 4 Walk 50ft with 2 Turns (QC): 4 Walk 150 ft (QC): 4 Walking 10ft on Uneven Surface: 4 1 Step (curb) (QC): 9 4 Steps (QC): 9 12 Steps (QC): 9 Picking up an Object (QC): 9 Wheel 50 feet with 2 turns (QC: 9 Wheel 150 feet: 9 PT Plan Problem List Problem List: Activity Tolerance, Functional Strength Treatment/Plan Treatment Plan: Continue Plan of Care Treatment Plan: Bed Mobility, Education, Functional Activity Mehdi, Functional Strength, Gait, Safety, Therapeutic Exercise, Transfers Treatment Duration: Jan 22, 2021 Frequency: 6 times per week Estimated Hrs Per Day: .25 hour per day Patient and/or Family Agrees t: Yes Safety Risks/Education Patient Education: Gait Training, Transfer Techniques Teaching Recipient: Patient Teaching Methods: Discussion Response to Teaching: Verbalize Understanding, Reinforcement Needed Time/GCodes Time In: 1005 Time Out: 1028 Total Billed Treatment Time: 23 Total Billed Treatment 1, FA, GT BRIDGETT VILLAFUERTE DIESEL ENGINE MECHANIC Jan 05, 2021 11:26
[2021-01-05] MEDS: ENOXAPARIN 40 MG/0.4 ML (LOVENOX) SYR SQ SCH (12:10)
[2021-01-05 18:02] VITALS: BP 144/94
[2021-01-05] MEDS: traZODone 150 MG (DESYREL) TABLET PO SCH (20:23)
[2021-01-05] MEDS: SIMvastatin 10 MG (ZOCOR) TAB PO SCH (20:23)
[2021-01-05 20:42] LABS: CALCIUM 9.2 MG/DL (8.5-10.1); CREATININE SERUM 1.67 MG/DL (0.60-1.30); POTASSIUM 4.4 MMOL/L (3.6-5.0)
[2021-01-05 20:53] LABS: BASOPHILS % (AUTO) 0 % (0-10); EOSINOPHILS # (AUTO) 0.4 10^3/uL (0.0-0.3); EOSINOPHILS % (AUTO) 5 % (0-10); HEMATOCRIT 41 % (40-54); HEMOGLOBIN 13.6 g/dL (13.3-17.7); LYMPHOCYTES # (AUTO) 2.2 10^3/uL (1.0-4.0); LYMPHOCYTES % (AUTO) 29 % (12-44); MEAN CORPUSCULAR HEMOGLOBIN 30 pg (25-34); MEAN CORPUSCULAR HGB CONC 33 g/dL (32-36); MEAN CORPUSCULAR VOLUME 93 fL (80-99); MEAN PLATELET VOLUME 10.6 fL (9.0-12.2); MONOCYTES # (AUTO) 0.6 10^3/uL (0.0-1.0); MONOCYTES % (AUTO) 8 % (0-12); NEUTROPHILS # (AUTO) 4.3 10^3/uL (1.8-7.8); NEUTROPHILS % (AUTO) 56 % (42-75); PLATELET COUNT 168 10^3/uL (130-400); WHITE BLOOD COUNT 7.6 10^3/uL (4.3-11.0)
[2021-01-06] MEDS ORDERED: MEROPENEM 500 MG in WATER (STERILE) FOR INJECTION 10 ML IV SCH ×2
[2021-01-06] MEDS: MEROPENEM 500 MG in WATER (STERILE) FOR INJECTION 10 ML IV SCH ×3 (04:37→20:42)
[2021-01-06] MEDS: BETHANECHOL 25 MG (URECHOLINE) TAB PO SCH ×4 (05:27→20:42)
[2021-01-06] MEDS: KCL 20 MEQ TAB (K-DUR) PO SCH (05:27)
[2021-01-06 05:32] VITALS: BP 124/75
[2021-01-06] MEDS: inSUlin ASPART (NovoLOG) 1 UNIT/0.01 ML (CHARGE PER UNIT) SC SCH ×4 (05:35→21:30)
[2021-01-06] MEDS: DOCUSATE SODIUM 100 MG (COLACE) CAP PO SCH ×2 (09:06→20:42)
[2021-01-06] MEDS: buPROPion SR 150 MG (WELLBUTRIN SR) TAB PO SCH ×2 (09:06→17:36)
[2021-01-06] MEDS: FUROSEMIDE 20 MG (LASIX) TAB PO SCH (09:06)
[2021-01-06] MEDS: risperiDONE 2 MG (RisperDAL) TAB PO SCH ×2 (09:06→20:42)
[2021-01-06] MEDS: meTOprolol TARTRATE 50 MG (LOPRESSOR) TAB PO SCH ×2 (09:07→20:42)
[2021-01-06] MEDS: ASCORBIC ACID (VIT C) 500 MG TABLET PO SCH (09:07)
[2021-01-06] MEDS: NYSTATIN CREAM (MYCOSTATIN) 30 GM TUBE TP SCH ×3 (09:07→20:42)
[2021-01-06] MEDS: ASPIRIN E.C. 81 MG (ECOTRIN) TAB PO SCH (09:07)
[2021-01-06] MEDS: LOSARTAN 50 MG (COZAAR) TAB PO SCH (09:07)
[2021-01-06] MEDS: PANTOPRAZOLE 40 MG (PROTONIX) TAB PO SCH (09:07)
[2021-01-06] MEDS: UMECLIDINIUM BROMIDE (INCRUSE ELLIPTA) 7'S IH SCH (09:47)
--- NOTE | 2021-01-06 10:34 | ST Cognitive Linguistic Eval ---
Speech Evaluation-General Medical Diagnosis UTI Onset Date: Dec 30, 2020 Therapy Diagnosis Therapy Diagnosis: cognitive-communication impairment Precautions Precautions: Fall Referral Referring Physician: Eneida Fam Reason for Referral: Evaluation/Treatment Medical History Pertinent Medical History: Arthritis, CAD, COPD, DM, Dementia, HTN, Neuropathy Arthritis, COPD, CAD, DM, Dementia, HTN, Neuropathy Current History Stroke Reviewed History: Yes Social History Home: Assisted Living Speech PLF-Current Status Subjective Pt was sitting upright and alert when entering the room. Pt presented with variable alertness during the session requiring frequent verbal stimuli. He was cooperative to ST evaluation and pleasant during the session Language Eval: Auditory Comprehends Simple Yes/No Ques: Functional Indent/Objects Multiple [place]: Functional Ident/Pics in Multiple [place]: Functional Follows 1-Step Commands: Functional Follows Complex Directions: Moderate Follows General Conversations: Moderate Language Eval: Verbal Language Completes Spontaneous Greeting: Functional Produces Auto, Serial Info: Functional Imitates Simple Words/Phrases: Functional Word Finding: Functional Requests Basic Needs: Functional States Basic Personal Info: Functional Expresses Complex Ideas: Moderate Language Evaluation: Reading Comprehends Single Nouns: Functional Comprehends Multiple Sentences: Functional Cognitive Patient Orientation Pt oriented to day, year, and location Objective Cognitive Domain Attention: Moderate Memory: Moderate Problem Solving: Moderate Executive Functions: Severe Visuospatial Skills: Mild Composite Severity Rating: Moderate Clock Drawing Severity Rating: Moderate Score: 13/20 Objective Formal/Standardized Tests Pt participated in the [facility] Mental Status ([facility]) Examination. Results He scored 13/20 in the dementia range. He accurately answered orientation questions, but had difficulty with problem solving and memory questions. He benefitted from verbal cues in order to recall delayed memory items. Oral Motor/Speech Production Pt's oral motor and speech production were judged to be WNL. He demonstrated appropriate utterance length and 100% intelligibility Impression Pt demonstrates mod-severe cognitive-communication impairment with deficits in problem solving and memory. Variable alertness may have impacted formal evaluation results. Pt's speech and language skills appear WNL. He was able to answer questions, label, describe, and make corrections to information. Pt benefitted from verbal cues to recall items presented verbally Speech Short Term Goals Short Term Goals Short Term Goals When presented verbally with a category, objects, or story, Pt will answer recall questions with 80% accuracy when given minimal verbal cues. Will problem solve with 80% accuracy when given minimal verbal/visual cues related to room safety, home, or personal affairs Speech Senior Living Goals Senior Living Goals Pt will improve cognitive-communication skills by completing problem solving and recall tasks with 80% accuracy given minimal verbal/visual cues Speech-Plan Patient/Family Goals Patient/Family Goals: return to home with home health services Treatment Plan Speech Therapy Treatment Plan: Continue Plan of Care Pt presented with mod-severe cognitive-communication impairment as evidenced by difficulty with problem solving and immediate/delayed recall Treatment Duration: Jan 06, 2021 Frequency: 4 times per week Estimated Hrs Per Day: .25 hour per day Rehab Potential: Fair Barriers to Learning: alertness and cognitive-communication skills (recall) Pt/Family Agrees to Plan: Yes Safety Risks/Education Teaching Recipient: Patient Teaching Methods: Discussion Response to Teaching: Verbalize Understanding Education Topics Provided: skilled ST services, recall Discharge Recommendations Assisted Living Time Speech Therapy Time In: 08:35 Speech Therapy Time Out: 08:50 Total Billed Time: 15 Billed Treatment Time 1, SEJAL SMYTH Jan 06, 2021 10:34
--- NOTE | 2021-01-06 10:50 | Physical Therapy Daily Note ---
PT Daily Note-Current Subjective Patient in recliner pre tx, agrees to PT, has no complaints of pain. Appearance Patient in recliner post tx with nurse call, phone, tray, all needs met, chair alarm on. Mental Status Patient Orientation: Person, Unable to Assess, Mumbles Attachments: Oxygen Transfers SCALE: Activities may be completed with or without assistive devices. 2-Tnxyguguoc-rbhfrmx completes the activity by him/herself with no assistance from a helper. 5-Set-up or Clean-up Assistance-helper sets up or cleans up; patient completes activity. [place] assists only prior to or following the activity. 4-Supervision or Touching Assistance-helper provides verbal cues and/or touching/steadying and/or contact guard assistance as patient completes activity. Assistance may be provided throughout the activity or intermittently. 3-Partial/Moderate Assistance-helper does LESS THAN HALF the effort. [place] lifts, holds or supports trunk or limbs, but provides less than half the effort. 2-Substantial/Maximal Assistance-helper does MORE THAN HALF the effort. [place] lifts or holds trunk or limbs and provides more than half the effort. 0-Qjhwysiym-bpuuic does ALL the effort. Patient does none of the effort to complete the activity. Or, the assistance of 2 or more helpers is required for the patient to complete the activity. If activity was not attempted, code reason: 7-Patient Refused. 9-Not Applicable-not attempted and the patient did not perform the activity before the current illness, exacerbation or injury. 10-Not Attempted due to Environmental Limitations-(lack of equipment, weather restraints, etc.). 88-Not Attempted due to Medical Conditions or Safety Concerns. Sit to Stand (QC): 3 min assist for sit to stand, cues for hand placement and safety Gait Training Distance: 20' Walk 10 feet (QC): 3 Gait Persons Needed: 1 Gait Assistive Device: FWW Patient ambulates forward and back as his O2 line allows for a total of about 20', min assist for balance Exercises Seated Therapy Exercises: Ankle pumps, Long arc quads Seated Reps: 20 Treatments transfers, ambulation, LE strengthening Assessment Current Status: Fair Progress Patient slightly SOB after ambulation PT Correction Goals Correction Goals PT Market Research Analyst Goals Time Frame: Jan 22, 2021 Roll Left & Right (QC): 5 Sit to Lying (QC): 5 Lying-Sitting on Side/Bed(QC): 5 Sit to Stand (QC): 5 Chair/Jds-bw-Usnsw Xfer(QC): 5 Toilet Transfer (QC): 5 Car Transfer (QC): 5 Does the Patient Walk: Yes Walk 10 feet (QC): 4 Walk 50ft with 2 Turns (QC): 4 Walk 150 ft (QC): 4 Walking 10ft on Uneven Surface: 4 1 Step (curb) (QC): 9 4 Steps (QC): 9 12 Steps (QC): 9 Picking up an Object (QC): 9 Wheel 50 feet with 2 turns (QC: 9 Wheel 150 feet: 9 PT Plan Problem List Problem List: Activity Tolerance, Functional Strength, Safety, Balance, Gait, Transfer, Bed Mobility, ROM Treatment/Plan Treatment Plan: Continue Plan of Care Treatment Plan: Bed Mobility, Education, Functional Activity Mehdi, Functional Strength, Gait, Safety, Therapeutic Exercise, Transfers Treatment Duration: Jan 22, 2021 Frequency: 6 times per week Estimated Hrs Per Day: .25 hour per day Patient and/or Family Agrees t: Yes Safety Risks/Education Patient Education: Gait Training, Transfer Techniques, Correct Positioning, Safety Issues Teaching Recipient: Patient Teaching Methods: Demonstration, Discussion Response to Teaching: Reinforcement Needed Time/GCodes Time In: 1017 Time Out: 1032 Total Billed Treatment Time: 15 Total Billed Treatment 1 visit FA 15' PATSY ESTEBAN PT Jan 06, 2021 10:50
[2021-01-06] MEDS: ENOXAPARIN 40 MG/0.4 ML (LOVENOX) SYR SQ SCH (14:15)
--- NOTE | 2021-01-06 14:26 | Occupational Ther Daily Note ---
OT Current Status-Daily Note Subjective Pt. dozing in bed. Awoke easily, no c/o pain, agrees to therapy. Mental Status/Objective Patient Orientation: Person Attachments: IV, Oxygen ADL-Treatment Therapy Code Descriptions/Definitions Functional [place] Measure: 0=Not Assessed/NA 4=Minimal Assistance 1=Total Assistance 5=Supervision or Setup 2=Maximal Assistance 6=Modified [place] 3=Moderate Assistance 7=Complete IndependenceSCALE: Activities may be completed with or without assistive devices. 5-Dyilzfqmxa-fjmsvvv completes the activity by him/herself with no assistance from a helper. 5-Set-up or Clean-up Assistance-helper sets up or cleans up; patient completes activity. [place] assists only prior to or following the activity. 4-Supervision or Touching Assistance-helper provides verbal cues and/or touching/steadying and/or contact guard assistance as patient completes activity. Assistance may be provided throughout the activity or intermittently. 3-Partial/Moderate Assistance-helper does LESS THAN HALF the effort. [place] lifts, holds or supports trunk or limbs, but provides less than half the effort. 2-Substantial/Maximal Assistance-helper does MORE THAN HALF the effort. [place] lifts or holds trunk or limbs and provides more than half the effort. 3-Tgwyatfbr-xtpgps does ALL the effort. Patient does none of the effort to complete the activity. Or, the assistance of 2 or more helpers is required for the patient to complete the activity. If activity was not attempted, code reason: 7-Patient Refused. 9-Not Applicable-not attempted and the patient did not perform the activity before the current illness, exacerbation or injury. 10-Not Attempted due to Environmental Limitations-(lack of equipment, weather restraints, etc.). 88-Not Attempted due to Medical Conditions or Safety Concerns. Other Treatment Pt. declined bed bath or oral care. Skilled instruction for B UE exercise techniques with light resistance Theraband. Pt. completed Shldr abd/add, Horizontal shldr abd/add, tricep ext, bicep flex with correct vvcvuuffc71w's 1set. Pt. refused to do further ex's. Required multiple rest breaks between exercises, movement was slow. Pt. was left in bed, call light/phone in reach. All needs met in room. Education OT Patient Education: Exercise program Teaching Recipient: Patient Teaching Methods: Demonstration, Discussion Response to Teaching: Return Demonstration, Reinforcement Needed OT Custodial Goals Fast Food Crew Member Goals Time Frame: Jan 21, 2021 Eating (QC): 5 Oral Hygiene (QC): 5 Toileting Hygiene (QC): 4 Shower/Bathe Self (QC): 3 Upper Body Dressing (QC): 4 Lower Body Dressing (QC): 3 On/Off Footwear (QC): 3 Additional Goals: 1-Demonstrate ADL Tasks, 2-Verbalize Understanding, 3- ImproveStrength/Mehdi 1=Demonstrate adherence to instructed precautions during ADL tasks. 2=Patient will verbalize/demonstrate understanding of assistive devices/modifica tions for ADL. 3=Patient will improve strength/tolerance for activity to enable patient to perform ADL's. OT Education/Plan Problem List/Assessment Assessment: Decreased Activ Tolerance, Decreased UE Strength, Impaired Cognition, Impaired Coordination, Impaired Self-Care Skills, Restricted Funct UE ROM Discharge Recommendations Plan/Recommendations: Continue POC Treatment Plan/Plan of Care Patient would benefit from OT for education, treatment and training to promote independence in ADL's, mobility, safety and/or upper extremity function for ADL's. Plan of Care: ADL Retraining, Functional Mobility, UE Funct Exercise/Act Treatment Duration: Jan 21, 2021 Frequency: 5 times per week Estimated Hrs Per Day: .25 hour per day Rehab Potential: Fair Time/GCodes Start Time: 14:00 Stop Time: 14:18 Total Time Billed (hr/min): 18 Billed Treatment Time 1 visit- Ex 1 (18 min) SASHA CANTRELL Jan 06, 2021 14:26
[2021-01-06 17:48] VITALS: BP 185/73
[2021-01-06] MEDS: SIMvastatin 10 MG (ZOCOR) TAB PO SCH (20:42)
[2021-01-06] MEDS: traZODone 150 MG (DESYREL) TABLET PO SCH (20:54)
[2021-01-07] MEDS: MEROPENEM 500 MG in WATER (STERILE) FOR INJECTION 10 ML IV SCH ×3 (04:46→20:04)
[2021-01-07 05:02] VITALS: BP 170/75
[2021-01-07] MEDS: inSUlin ASPART (NovoLOG) 1 UNIT/0.01 ML (CHARGE PER UNIT) SC SCH ×4 (05:40→21:24)
[2021-01-07] MEDS: KCL 20 MEQ TAB (K-DUR) PO SCH (06:21)
[2021-01-07] MEDS: BETHANECHOL 25 MG (URECHOLINE) TAB PO SCH ×4 (06:21→20:04)
[2021-01-07] MEDS: UMECLIDINIUM BROMIDE (INCRUSE ELLIPTA) 7'S IH SCH (07:58)
[2021-01-07] MEDS: DOCUSATE SODIUM 100 MG (COLACE) CAP PO SCH ×2 (08:59→20:04)
[2021-01-07] MEDS: FUROSEMIDE 20 MG (LASIX) TAB PO SCH (08:59)
[2021-01-07] MEDS: meTOprolol TARTRATE 50 MG (LOPRESSOR) TAB PO SCH ×2 (08:59→20:03)
[2021-01-07] MEDS: buPROPion SR 150 MG (WELLBUTRIN SR) TAB PO SCH ×2 (08:59→17:27)
[2021-01-07] MEDS: ASCORBIC ACID (VIT C) 500 MG TABLET PO SCH (08:59)
[2021-01-07] MEDS: LOSARTAN 50 MG (COZAAR) TAB PO SCH (09:00)
[2021-01-07] MEDS: risperiDONE 2 MG (RisperDAL) TAB PO SCH ×2 (09:00→20:03)
[2021-01-07] MEDS: ASPIRIN E.C. 81 MG (ECOTRIN) TAB PO SCH (09:00)
[2021-01-07] MEDS: PANTOPRAZOLE 40 MG (PROTONIX) TAB PO SCH (09:00)
[2021-01-07] MEDS: NYSTATIN CREAM (MYCOSTATIN) 30 GM TUBE TP SCH ×3 (09:02→20:04)
--- NOTE | 2021-01-07 10:42 | Occupational Ther Daily Note ---
OT Current Status-Daily Note Subjective Pt laying in bed, declines OOB activities. OT asked pt how he was doing today, he replied "I haven't decided yet" Mental Status/Objective Patient Orientation: Person, Confused Attachments: Shafer Catheter, Oxygen ADL-Treatment Therapy Code Descriptions/Definitions Functional [place] Measure: 0=Not Assessed/NA 4=Minimal Assistance 1=Total Assistance 5=Supervision or Setup 2=Maximal Assistance 6=Modified [place] 3=Moderate Assistance 7=Complete IndependenceSCALE: Activities may be completed with or without assistive devices. 5-Zthdwgkttz-laattnt completes the activity by him/herself with no assistance from a helper. 5-Set-up or Clean-up Assistance-helper sets up or cleans up; patient completes activity. [place] assists only prior to or following the activity. 4-Supervision or Touching Assistance-helper provides verbal cues and/or touching/steadying and/or contact guard assistance as patient completes activity. Assistance may be provided throughout the activity or intermittently. 3-Partial/Moderate Assistance-helper does LESS THAN HALF the effort. [place] lifts, holds or supports trunk or limbs, but provides less than half the effort. 2-Substantial/Maximal Assistance-helper does MORE THAN HALF the effort. [place] lifts or holds trunk or limbs and provides more than half the effort. 4-Thcdhoxyz-eurqtu does ALL the effort. Patient does none of the effort to complete the activity. Or, the assistance of 2 or more helpers is required for the patient to complete the activity. If activity was not attempted, code reason: 7-Patient Refused. 9-Not Applicable-not attempted and the patient did not perform the activity before the current illness, exacerbation or injury. 10-Not Attempted due to Environmental Limitations-(lack of equipment, weather restraints, etc.). 88-Not Attempted due to Medical Conditions or Safety Concerns. Eating (QC): 6 (IND drinking water) Oral Hygiene (QC): 3 (based on clinical judgment and pt report, pt able to place remove, assist provided to rinse.) Shower/Bathe Self (QC): 2 (pt able to wash BUEs, chest and abdomen, assist washing periarea, buttocks, BLEs lower legs/feet, thighs.) Upper Body Dressing (QC): 2 (max A changing hospital gown.) Lower Body Dressing (QC): 10 (LE clothing not available during tx) On/Off Footwear: 1 (total assist) Toileting Hygiene (QC): 1 (catheter) Other Treatment Pt laying in bed, agreeable to OT tx, but declines OOB activity even with encouragement. OT lowered HOB, pt able to bend knees, and with assistance for positioning UEs, pt boosted himself up towards HOB. Pt completed sponge bath, and dressing as outlined above. Post tx, pt in bed, all needs met, call light in reach. Education OT Patient Education: Correct positioning, Energy conservation, Modified ADL techniques, Progress toward Goal/Update tx plan, Purpose of tx/functional activities, Rehab process Teaching Recipient: Patient Teaching Methods: Discussion Response to Teaching: Verbalize Understanding OT Computed Tomography Technician Goals Longterm Goals Time Frame: Jan 21, 2021 Eating (QC): 5 Oral Hygiene (QC): 5 Toileting Hygiene (QC): 4 Shower/Bathe Self (QC): 3 Upper Body Dressing (QC): 4 Lower Body Dressing (QC): 3 On/Off Footwear (QC): 3 Additional Goals: 1-Demonstrate ADL Tasks, 2-Verbalize Understanding, 3- ImproveStrength/Mehdi 1=Demonstrate adherence to instructed precautions during ADL tasks. 2=Patient will verbalize/demonstrate understanding of assistive devices/modifications for ADL. 3=Patient will improve strength/tolerance for activity to enable patient to perform ADL's. OT Education/Plan Problem List/Assessment Assessment: Decreased Activ Tolerance, Decreased UE Strength, Impaired Cognition, Impaired Funct Balance, Impaired I ADL's, Impaired Self-Care Skills Discharge Recommendations Plan/Recommendations: Continue POC Treatment Plan/Plan of Care Patient would benefit from OT for education, treatment and training to promote independence in ADL's, mobility, safety and/or upper extremity function for ADL's. Plan of Care: ADL Retraining, Functional Mobility, UE Funct Exercise/Act Treatment Duration: Jan 21, 2021 Frequency: 5 times per week Estimated Hrs Per Day: .25 hour per day Rehab Potential: Fair Time/GCodes Start Time: 10:15 Stop Time: 10:30 Total Time Billed (hr/min): 15 Billed Treatment Time 1, ADL MINOO ROB OT Jan 07, 2021 10:42
--- NOTE | 2021-01-07 12:01 | Physical Therapy Daily Note ---
PT Daily Note-Current Subjective Patient agrees to PT. Mental Status Attachments: Oxygen, Suprapubic Catheter Transfers SCALE: Activities may be completed with or without assistive devices. 0-Phsyvadvfa-iomuect completes the activity by him/herself with no assistance from a helper. 5-Set-up or Clean-up Assistance-helper sets up or cleans up; patient completes activity. [place] assists only prior to or following the activity. 4-Supervision or Touching Assistance-helper provides verbal cues and/or touching/steadying and/or contact guard assistance as patient completes activity. Assistance may be provided throughout the activity or intermittently. 3-Partial/Moderate Assistance-helper does LESS THAN HALF the effort. [place] lifts, holds or supports trunk or limbs, but provides less than half the effort. 2-Substantial/Maximal Assistance-helper does MORE THAN HALF the effort. [place] lifts or holds trunk or limbs and provides more than half the effort. 9-Hxphbpawv-axkafu does ALL the effort. Patient does none of the effort to compl ete the activity. Or, the assistance of 2 or more helpers is required for the patient to complete the activity. If activity was not attempted, code reason: 7-Patient Refused. 9-Not Applicable-not attempted and the patient did not perform the activity before the current illness, exacerbation or injury. 10-Not Attempted due to Environmental Limitations-(lack of equipment, weather restraints, etc.). 88-Not Attempted due to Medical Conditions or Safety Concerns. Lying to Sitting/Side of Bed(Q: 2 Sit to Stand (QC): 2 Chair/Ekm-sa-Tmnvm Xfer(QC): 2 Gait Training Does the Patient Walk?: Yes Distance: 125' x 2 Walk 10 feet (QC): 3 Walk 50 ft with 2 Turns(QC): 3 Walk 150 ft (QC): 88 Gait Assistive Device: FWW patient required seated recovery period due to weakness/noted trunk and bilateral knee flexed posture with FWW use/WBOS Exercises Seated Therapy Exercises: Ankle pumps, Long arc quads, Hip flexion Seated Reps: 15 Assessment Patient tolerated treatment well and is up in recliner with needs met. Continued weakness and impaired mobility PT Optical Instrument Assembler Goals Optical Instrument Assembler Goals PT Detention Goals Time Frame: Jan 22, 2021 Roll Left & Right (QC): 5 Sit to Lying (QC): 5 Lying-Sitting on Side/Bed(QC): 5 Sit to Stand (QC): 5 Chair/Phm-do-Vnuon Xfer(QC): 5 Toilet Transfer (QC): 5 Car Transfer (QC): 5 Does the Patient Walk: Yes Walk 10 feet (QC): 4 Walk 50ft with 2 Turns (QC): 4 Walk 150 ft (QC): 4 Walking 10ft on Uneven Surface: 4 1 Step (curb) (QC): 9 4 Steps (QC): 9 12 Steps (QC): 9 Picking up an Object (QC): 9 Wheel 50 feet with 2 turns (QC: 9 Wheel 150 feet: 9 PT Plan Treatment/Plan Treatment Plan: Continue Plan of Care Treatment Plan: Bed Mobility, Education, Functional Activity Mehdi, Functional Strength, Gait, Safety, Therapeutic Exercise, Transfers Treatment Duration: Jan 22, 2021 Frequency: 6 times per week Estimated Hrs Per Day: .25 hour per day Patient and/or Family Agrees t: Yes Time/GCodes Time In: 1030 Time Out: 1053 Total Billed Treatment Time: 23 Total Billed Treatment 1 visit EX 8 min GT 15 min SHERLY BRADLEY PT Jan 07, 2021 12:01
[2021-01-07] MEDS: ENOXAPARIN 40 MG/0.4 ML (LOVENOX) SYR SQ SCH (12:24)
[2021-01-07 18:00] VITALS: BP 164/75
[2021-01-07] MEDS: traZODone 150 MG (DESYREL) TABLET PO SCH (20:03)
[2021-01-07] MEDS: SIMvastatin 10 MG (ZOCOR) TAB PO SCH (20:04)
[2021-01-08] MEDS: MEROPENEM 500 MG in WATER (STERILE) FOR INJECTION 10 ML IV SCH ×3 (04:21→20:02)
[2021-01-08 05:39] VITALS: BP 130/61
[2021-01-08] MEDS: BETHANECHOL 25 MG (URECHOLINE) TAB PO SCH ×4 (06:29→20:02)
[2021-01-08] MEDS: inSUlin ASPART (NovoLOG) 1 UNIT/0.01 ML (CHARGE PER UNIT) SC SCH ×4 (06:29→20:28)
[2021-01-08] MEDS: KCL 20 MEQ TAB (K-DUR) PO SCH (06:29)
[2021-01-08] MEDS: UMECLIDINIUM BROMIDE (INCRUSE ELLIPTA) 7'S IH SCH (07:39)
[2021-01-08] MEDS: buPROPion SR 150 MG (WELLBUTRIN SR) TAB PO SCH ×2 (08:02→18:07)
[2021-01-08] MEDS: ASPIRIN E.C. 81 MG (ECOTRIN) TAB PO SCH (08:02)
[2021-01-08] MEDS: DOCUSATE SODIUM 100 MG (COLACE) CAP PO SCH ×2 (08:02→20:03)
[2021-01-08] MEDS: risperiDONE 2 MG (RisperDAL) TAB PO SCH ×2 (08:02→20:03)
[2021-01-08] MEDS: meTOprolol TARTRATE 50 MG (LOPRESSOR) TAB PO SCH ×2 (08:03→20:02)
[2021-01-08] MEDS: LOSARTAN 50 MG (COZAAR) TAB PO SCH (08:03)
[2021-01-08] MEDS: FUROSEMIDE 20 MG (LASIX) TAB PO SCH (08:03)
[2021-01-08] MEDS: PANTOPRAZOLE 40 MG (PROTONIX) TAB PO SCH (08:03)
[2021-01-08] MEDS: ASCORBIC ACID (VIT C) 500 MG TABLET PO SCH (08:03)
[2021-01-08] MEDS: NYSTATIN CREAM (MYCOSTATIN) 30 GM TUBE TP SCH ×3 (08:10→20:04)
--- NOTE | 2021-01-08 08:14 | Physical Therapy Daily Note ---
PT Daily Note-Current Subjective Pt asleep in bed upon arrival to room, initially denies PT treatment, then reluctantly agreeable to complete bed level strengthening exercises. No voiced pain during session. Appearance Following session, pt asleep supine in bed. Call light and tray table within reach, all needs met Mental Status Patient Orientation: Person, Confused Transfers SCALE: Activities may be completed with or without assistive devices. 2-Qkqtylwjoq-vyzryuq completes the activity by him/herself with no assistance from a helper. 5-Set-up or Clean-up Assistance-helper sets up or cleans up; patient completes activity. [place] assists only prior to or following the activity. 4-Supervision or Touching Assistance-helper provides verbal cues and/or touching /steadying and/or contact guard assistance as patient completes activity. Assistance may be provided throughout the activity or intermittently. 3-Partial/Moderate Assistance-helper does LESS THAN HALF the effort. [place] lifts, holds or supports trunk or limbs, but provides less than half the effort. 2-Substantial/Maximal Assistance-helper does MORE THAN HALF the effort. [place] lifts or holds trunk or limbs and provides more than half the effort. 2-Sqvybtlrl-hgngtk does ALL the effort. Patient does none of the effort to complete the activity. Or, the assistance of 2 or more helpers is required for the patient to complete the activity. If activity was not attempted, code reason: 7-Patient Refused. 9-Not Applicable-not attempted and the patient did not perform the activity before the current illness, exacerbation or injury. 10-Not Attempted due to Environmental Limitations-(lack of equipment, weather restraints, etc.). 88-Not Attempted due to Medical Conditions or Safety Concerns. Exercises Supine Ex: Bridging, Ankle pumps, Quad Set, Glut sets, Heel Slides, Short Arc Quads, Straight leg raise Supine Reps: 20 Treatments Pt HOB elevated in attempt to keep patient awake during session, as he kept falling asleep. Pt required encouragement to complete all exercises. Assessment Current Status: Fair Progress Pt required encouragement for all exercises, able to complete bed level exercises this date. Pt encouraged to get OOB to chair later, pt agreed to do so. PT Wastewater Manager Goals Usp Goals PT Wastewater Manager Goals Time Frame: Jan 22, 2021 Roll Left & Right (QC): 5 Sit to Lying (QC): 5 Lying-Sitting on Side/Bed(QC): 5 Sit to Stand (QC): 5 Chair/Qee-iq-Bxmvl Xfer(QC): 5 Toilet Transfer (QC): 5 Car Transfer (QC): 5 Does the Patient Walk: Yes Walk 10 feet (QC): 4 Walk 50ft with 2 Turns (QC): 4 Walk 150 ft (QC): 4 Walking 10ft on Uneven Surface: 4 1 Step (curb) (QC): 9 4 Steps (QC): 9 12 Steps (QC): 9 Picking up an Object (QC): 9 Wheel 50 feet with 2 turns (QC: 9 Wheel 150 feet: 9 PT Plan Problem List Problem List: Activity Tolerance, Functional Strength, Safety, Balance, Gait, Transfer, Bed Mobility, ROM Treatment/Plan Treatment Plan: Continue Plan of Care Treatment Plan: Bed Mobility, Education, Functional Activity Mehdi, Functional Strength, Gait, Safety, Therapeutic Exercise, Transfers Treatment Duration: Jan 22, 2021 Frequency: 6 times per week Estimated Hrs Per Day: .25 hour per day Patient and/or Family Agrees t: Yes Time/GCodes Time In: 745 Time Out: 800 Total Billed Treatment Time: 15 Total Billed Treatment 1 visit EX (15') DAVID OROURKE PT Jan 08, 2021 08:14
[2021-01-08 08:47] LABS: BASOPHILS % (AUTO) 0 % (0-10); EOSINOPHILS # (AUTO) 0.4 10^3/uL (0.0-0.3); EOSINOPHILS % (AUTO) 5 % (0-10); HEMATOCRIT 41 % (40-54); HEMOGLOBIN 13.5 g/dL (13.3-17.7); LYMPHOCYTES # (AUTO) 2.1 10^3/uL (1.0-4.0); LYMPHOCYTES % (AUTO) 27 % (12-44); MEAN CORPUSCULAR HEMOGLOBIN 30 pg (25-34); MEAN CORPUSCULAR HGB CONC 33 g/dL (32-36); MEAN CORPUSCULAR VOLUME 92 fL (80-99); MEAN PLATELET VOLUME 10.6 fL (9.0-12.2); MONOCYTES # (AUTO) 0.6 10^3/uL (0.0-1.0); MONOCYTES % (AUTO) 7 % (0-12); NEUTROPHILS # (AUTO) 4.6 10^3/uL (1.8-7.8); NEUTROPHILS % (AUTO) 60 % (42-75); PLATELET COUNT 174 10^3/uL (130-400); WHITE BLOOD COUNT 7.8 10^3/uL (4.3-11.0)
[2021-01-08 08:57] LABS: POTASSIUM 4.5 MMOL/L (3.6-5.0)
[2021-01-08 08:58] LABS: CALCIUM 9.2 MG/DL (8.5-10.1)
[2021-01-08 09:02] LABS: CREATININE SERUM 1.21 MG/DL (0.60-1.30)
[2021-01-08] MEDS: ENOXAPARIN 40 MG/0.4 ML (LOVENOX) SYR SQ SCH (12:58)
--- NOTE | 2021-01-08 14:20 | Progress Note - Hospitalist ---
Subjective HPI/CC On Admission Date Seen by Provider: Jan 08, 2021 Time Seen by Provider: 10:50 Subjective/Events-last exam He has no concerns or complaints today. He denies any pain. He denies any shortness of breath. He has been sleeping well. He has been eating and drinking without problems. Objective Exam Vital Signs Vital Signs Date Time Temp Pulse Resp B/P (MAP) Pulse Ox O2 Delivery O2 Flow Rate FiO2 01/08/21 09:00 Nasal Cannula 2.00 01/08/21 07:39 96 01/08/21 05:39 36.7 68 18 130/61 (84) Capillary Refill : General Appearance: No Apparent Distress, Obese Respiratory: Lungs Clear, Normal Breath Sounds, No Respiratory Distress Cardiovascular: Regular Rate, Rhythm, No Edema, No Murmur Gastrointestinal: Normal Bowel Sounds, Non Tender, Soft Extremity: Normal Inspection, Non Tender, No Pedal Edema Neurologic/Psychiatric: Alert, Oriented x3, Normal Mood/Affect, Motor Weakness Skin: Normal Color, Warm/Dry Results/Procedures Lab Laboratory Tests 01/08/21 08:38 Patient resulted labs reviewed. Imaging: Reviewed Imaging Report Assessment/Plan Assessment and Plan Assess & Plan/Chief Complaint Multi-drug resistant UTI ESBL E coli UTI ESBL Klebsiella pneumonia UTI Continue Merrem CKD Monitor CAD HTN HLD Continue home meds IDDMII SSI Continue insulin DVT ppx: Lovenox Diagnosis/Problems Diagnosis/Problems (1) UTI due to extended-spectrum beta lactamase (ESBL) producing Escherichia coli Status: Acute (2) Urinary tract infection due to ESBL Klebsiella Status: Acute (3) Chronic renal insufficiency Status: Acute SAMI LAM MD Jan 08, 2021 14:20
[2021-01-08 17:30] VITALS: BP 178/98
[2021-01-08] MEDS: SIMvastatin 10 MG (ZOCOR) TAB PO SCH (20:03)
[2021-01-08] MEDS: traZODone 150 MG (DESYREL) TABLET PO SCH (20:03)
[2021-01-09] MEDS: MEROPENEM 500 MG in WATER (STERILE) FOR INJECTION 10 ML IV SCH ×3 (04:35→20:10)
[2021-01-09 05:37] VITALS: BP 170/70
[2021-01-09] MEDS: inSUlin ASPART (NovoLOG) 1 UNIT/0.01 ML (CHARGE PER UNIT) SC SCH ×4 (05:39→20:13)
[2021-01-09] MEDS: BETHANECHOL 25 MG (URECHOLINE) TAB PO SCH ×5 (06:17→20:10)
[2021-01-09] MEDS: KCL 20 MEQ TAB (K-DUR) PO SCH (06:17)
[2021-01-09] MEDS: UMECLIDINIUM BROMIDE (INCRUSE ELLIPTA) 7'S IH SCH (07:53)
[2021-01-09] MEDS: PANTOPRAZOLE 40 MG (PROTONIX) TAB PO SCH (08:51)
[2021-01-09] MEDS: ASPIRIN E.C. 81 MG (ECOTRIN) TAB PO SCH (08:51)
[2021-01-09] MEDS: buPROPion SR 150 MG (WELLBUTRIN SR) TAB PO SCH ×2 (08:51→17:43)
[2021-01-09] MEDS: LOSARTAN 50 MG (COZAAR) TAB PO SCH (08:51)
[2021-01-09] MEDS: meTOprolol TARTRATE 50 MG (LOPRESSOR) TAB PO SCH ×2 (08:51→20:11)
[2021-01-09] MEDS: ASCORBIC ACID (VIT C) 500 MG TABLET PO SCH (08:52)
[2021-01-09] MEDS: NYSTATIN CREAM (MYCOSTATIN) 30 GM TUBE TP SCH ×3 (08:52→20:17)
[2021-01-09] MEDS: FUROSEMIDE 20 MG (LASIX) TAB PO SCH (08:52)
[2021-01-09] MEDS: DOCUSATE SODIUM 100 MG (COLACE) CAP PO SCH ×2 (08:52→19:51)
[2021-01-09] MEDS: risperiDONE 2 MG (RisperDAL) TAB PO SCH ×2 (09:01→20:10)
[2021-01-09] MEDS: ENOXAPARIN 40 MG/0.4 ML (LOVENOX) SYR SQ SCH (13:30)
[2021-01-09 17:08] VITALS: BP 180/82
[2021-01-09] MEDS: SIMvastatin 10 MG (ZOCOR) TAB PO SCH (20:10)
[2021-01-09] MEDS: traZODone 150 MG (DESYREL) TABLET PO SCH (20:10)
[2021-01-10] MEDS: MEROPENEM 500 MG in WATER (STERILE) FOR INJECTION 10 ML IV SCH (04:45)
[2021-01-10] MEDS: inSUlin ASPART (NovoLOG) 1 UNIT/0.01 ML (CHARGE PER UNIT) SC SCH ×2 (05:08→12:01)
[2021-01-10] MEDS: KCL 20 MEQ TAB (K-DUR) PO SCH (05:08)
[2021-01-10] MEDS: BETHANECHOL 25 MG (URECHOLINE) TAB PO SCH ×2 (05:08→12:01)
[2021-01-10 06:44] VITALS: BP 158/83
[2021-01-10] MEDS: UMECLIDINIUM BROMIDE (INCRUSE ELLIPTA) 7'S IH SCH (07:41)
--- NOTE | 2021-01-10 08:30 | Occupational Ther Daily Note ---
OT Current Status-Daily Note Subjective Pt in bed, breakfast tray just arrived. Pt agreeable to getting up to recliner. Mental Status/Objective Attachments: Shafer Catheter, Oxygen ADL-Treatment Therapy Code Descriptions/Definitions Functional [place] Measure: 0=Not Assessed/NA 4=Minimal Assistance 1=Total Assistance 5=Supervision or Setup 2=Maximal Assistance 6=Modified [place] 3=Moderate Assistance 7=Complete IndependenceSCALE: Activities may be completed with or without assistive devices. 6-Tyyyttzwis-flnlcwi completes the activity by him/herself with no assistance from a helper. 5-Set-up or Clean-up Assistance-helper sets up or cleans up; patient completes activity. [place] assists only prior to or following the activity. 4-Supervision or Touching Assistance-helper provides verbal cues and/or touching/steadying and/or contact guard assistance as patient completes activity. Assistance may be provided throughout the activity or intermittently. 3-Partial/Moderate Assistance-helper does LESS THAN HALF the effort. [place] lifts, holds or supports trunk or limbs, but provides less than half the effort. 2-Substantial/Maximal Assistance-helper does MORE THAN HALF the effort. [place] lifts or holds trunk or limbs and provides more than half the effort. 4-Wklhezzpd-zocoka does ALL the effort. Patient does none of the effort to complete the activity. Or, the assistance of 2 or more helpers is required for the patient to complete the activity. If activity was not attempted, code reason: 7-Patient Refused. 9-Not Applicable-not attempted and the patient did not perform the activity before the current illness, exacerbation or injury. 10-Not Attempted due to Environmental Limitations-(lack of equipment, weather restraints, etc.). 88-Not Attempted due to Medical Conditions or Safety Concerns. Eating (QC): 5 (set up, assist to open containers.) Oral Hygiene (QC): 5 (set up, OT handed pt dentures and he was able to place in mouth.) Bathing Location: L Arm, R Arm, Chest, Abdomen Shower/Bathe Self (QC): 2 (Max A overall with sponge bath.) Upper Body Dressing (QC): 3 (assist changing hospital gown.) Lower Body Dressing (QC): 10 (no LE clothing available at time of tx.) On/Off Footwear: 1 (total assist donning/doffing gripper socks.) Toileting Hygiene (QC): 1 (catheter) Other Treatment Pt in bed, transferred supine to sit EOB with max A (assist BLEs and trunk). Pt completed sit to stand with mod A, then transferred to recliner with mod A. Pt required cues for positioning and sequencing of steps, pt states fear of falling due to knees appearing to almost buckle. Pt sat in recliner. Pt completed sponge bath at recliner, and dressing. OT set up pt's breakfast tray for him. Post tx, pt up in recliner, call light in reach and all needs met. Education OT Patient Education: Correct positioning, Energy conservation, Exercise program, Modified ADL techniques, Progress toward Goal/Update tx plan, Purpose of tx/functional activities, Rehab process Teaching Recipient: Patient Teaching Methods: Discussion Response to Teaching: Verbalize Understanding OT Brand Strategy Manager Goals Brand Strategy Manager Goals Time Frame: Jan 21, 2021 Eating (QC): 5 (met) Oral Hygiene (QC): 5 (met) Toileting Hygiene (QC): 4 Shower/Bathe Self (QC): 3 (not met) Upper Body Dressing (QC): 4 (not met) Lower Body Dressing (QC): 3 (not met) On/Off Footwear (QC): 3 (not met) Additional Goals: 1-Demonstrate ADL Tasks, 2-Verbalize Understanding, 3- ImproveStrength/Mehdi 1=Demonstrate adherence to instructed precautions during ADL tasks. 2=Patient will verbalize/demonstrate understanding of assistive devices/modifications for ADL. 3=Patient will improve strength/tolerance for activity to enable patient to perform ADL's. OT Education/Plan Problem List/Assessment Assessment: Decreased Activ Tolerance, Decreased UE Strength, Impaired Bed Mobility, Impaired Funct Balance, Impaired I ADL's, Impaired Self-Care Skills Discharge Recommendations Plan/Recommendations: Continue POC Treatment Plan/Plan of Care Patient would benefit from OT for education, treatment and training to promote independence in ADL's, mobility, safety and/or upper extremity function for ADL's. Plan of Care: ADL Retraining, Functional Mobility, UE Funct Exercise/Act Treatment Duration: Jan 21, 2021 Frequency: 5 times per week Estimated Hrs Per Day: .25 hour per day Rehab Potential: Fair Time/GCodes Start Time: 08:05 Stop Time: 08:23 Total Time Billed (hr/min): 18 Billed Treatment Time 1, ADL MINOO ROB OT Jan 10, 2021 08:29
[2021-01-10] MEDS: FUROSEMIDE 20 MG (LASIX) TAB PO SCH (09:24)
[2021-01-10] MEDS: risperiDONE 2 MG (RisperDAL) TAB PO SCH (09:24)
[2021-01-10] MEDS: buPROPion SR 150 MG (WELLBUTRIN SR) TAB PO SCH (09:24)
[2021-01-10] MEDS: ASPIRIN E.C. 81 MG (ECOTRIN) TAB PO SCH (09:25)
[2021-01-10] MEDS: LOSARTAN 50 MG (COZAAR) TAB PO SCH (09:25)
[2021-01-10] MEDS: DOCUSATE SODIUM 100 MG (COLACE) CAP PO SCH (09:25)
[2021-01-10] MEDS: meTOprolol TARTRATE 50 MG (LOPRESSOR) TAB PO SCH (09:25)
[2021-01-10] MEDS: NYSTATIN CREAM (MYCOSTATIN) 30 GM TUBE TP SCH (09:25)
[2021-01-10] MEDS: PANTOPRAZOLE 40 MG (PROTONIX) TAB PO SCH (09:25)
[2021-01-10] MEDS: ASCORBIC ACID (VIT C) 500 MG TABLET PO SCH (09:25)
[2021-01-10] MEDS: ENOXAPARIN 40 MG/0.4 ML (LOVENOX) SYR SQ SCH (12:02)
--- NOTE | 2021-01-10 12:14 | Physical Therapy Daily Note ---
PT Daily Note-Current Subjective Patient in recliner pre tx, agrees to PT, has no complaints of pain. Appearance Patient in recliner post tx with nurse call, phone, tray, all needs met, chair alarm on. Mental Status Patient Orientation: Person, Confused, [place] Attachments: Oxygen, Shafer Catheter Transfers SCALE: Activities may be completed with or without assistive devices. 4-Diligfixdc-nzjuoqt completes the activity by him/herself with no assistance from a helper. 5-Set-up or Clean-up Assistance-helper sets up or cleans up; patient completes activity. [place] assists only prior to or following the activity. 4-Supervision or Touching Assistance-helper provides verbal cues and/or touching/steadying and/or contact guard assistance as patient completes activity. Assistance may be provided throughout the activity or intermittently. 3-Partial/Moderate Assistance-helper does LESS THAN HALF the effort. [place] lifts, holds or supports trunk or limbs, but provides less than half the effort. 2-Substantial/Maximal Assistance-helper does MORE THAN HALF the effort. [place] lifts or holds trunk or limbs and provides more than half the effort. 1-Smyzingvh-etiizc does ALL the effort. Patient does none of the effort to complete the activity. Or, the assistance of 2 or more helpers is required for the patient to complete the activity. If activity was not attempted, code reason: 7-Patient Refused. 9-Not Applicable-not attempted and the patient did not perform the activity before the current illness, exacerbation or injury. 10-Not Attempted due to Environmental Limitations-(lack of equipment, weather restraints, etc.). 88-Not Attempted due to Medical Conditions or Safety Concerns. Sit to Stand (QC): 3 mod assist for sit to stand, patient has a hard time just leaning forward in the recliner in preparation to stand Gait Training Distance: 50' Walk 10 feet (QC): 3 Walk 50 ft with 2 Turns(QC): 3 Gait Assistive Device: FWW min assist for balance, unsteady, slumped posture, some slight knee buckling Exercises Seated Therapy Exercises: Ankle pumps, Long arc quads Seated Reps: 20 Treatments ambulation, LE strengthening Assessment Current Status: Poor Progress high fall risk, min assist for balance during ambulation PT Shoe Planner Goals Half-Way Goals PT Shoe Planner Goals Time Frame: Jan 22, 2021 Roll Left & Right (QC): 5 Sit to Lying (QC): 5 Lying-Sitting on Side/Bed(QC): 5 Sit to Stand (QC): 5 Chair/Csf-wa-Xvsba Xfer(QC): 5 Toilet Transfer (QC): 5 Car Transfer (QC): 5 Does the Patient Walk: Yes Walk 10 feet (QC): 4 Walk 50ft with 2 Turns (QC): 4 Walk 150 ft (QC): 4 Walking 10ft on Uneven Surface: 4 1 Step (curb) (QC): 9 4 Steps (QC): 9 12 Steps (QC): 9 Picking up an Object (QC): 9 Wheel 50 feet with 2 turns (QC: 9 Wheel 150 feet: 9 PT Plan Problem List Problem List: Activity Tolerance, Functional Strength, Safety, Balance, Gait, Transfer, Bed Mobility, ROM Treatment/Plan Treatment Plan: Continue Plan of Care Treatment Plan: Bed Mobility, Education, Functional Activity Mehdi, Functional Strength, Gait, Safety, Therapeutic Exercise, Transfers Treatment Duration: Jan 22, 2021 Frequency: 6 times per week Estimated Hrs Per Day: .25 hour per day Patient and/or Family Agrees t: Yes Safety Risks/Education Patient Education: Gait Training, Transfer Techniques, Correct Positioning, Safety Issues Teaching Recipient: Patient Teaching Methods: Demonstration, Discussion Response to Teaching: Reinforcement Needed Time/GCodes Time In: 1130 Time Out: 1145 Total Billed Treatment Time: 15 Total Billed Treatment 1 visit FA 15PATSY THOMASON PT Jan 10, 2021 12:14
--- NOTE | 2021-01-10 12:27 | Discharge Summary ---
Diagnosis/Chief Complaint Date of Admission Jan 03, 2021 at 13:30 Date of Discharge Primary Care Bhaskar Alcantara MD Discharge Diagnosis (1) UTI due to extended-spectrum beta lactamase (ESBL) producing Escherichia coli Status: Acute (2) Urinary tract infection due to ESBL Klebsiella Status: Acute (3) Chronic renal insufficiency Status: Acute Discharge Summary Discharge Physical Exam Allergies: Coded Allergies: Penicillins (Unverified Allergy, Mild, HIVES, 11/16/19) duloxetine HCl (Verified Allergy, Mild, 11/16/19) Vitals & I&Os Vital Signs Date Time Temp Pulse Resp B/P (MAP) Pulse Ox O2 Delivery O2 Flow Rate FiO2 01/10/21 14:58 36.6 81 20 158/83 94 Nasal Cannula 2.00 General Appearance: No Apparent Distress, Chronically ill, Obese Neurologic/Psychiatric: Alert, Oriented x3 Hospital Course Patient was admitted to the swing bed for continued IV antibiotics and physical therapy following admission for multidrug-resistant urinary tract infection. He did very well he completed IV antibiotics. He was able to be discharged back to [facility] home and states it is stable and improved condition. He is to follow-up with his primary care doctor in the next week. Labs (last 24 hrs) Patient resulted labs reviewed. URINE CULTURE Final (continued) Verified 01/02/21-1057 (continued) Esc coli Kleb pneum INTERP INTERP AMPICILLIN R R GENTAMICIN R S Cefuroxime R R CEFAZOLIN R R CEFTRIAXONE R R AMOX/CLAV R S TRIMETH/SULFA R S LEVOFLOXACIN R S CIPROFLOXACIN R S MEROPENEM S S NITROFURANTOIN R R Pending Labs Imaging: Reviewed Imaging Report Discussion & Recommendations Discharge Planning: >30 minutes discharge planning Discharge Home Medications: Active Scripts Active Aspirin EC (Aspirin) 81 Mg Tablet.dr 81 Mg PO DAILY 30 Days Reported Bethanechol Chloride 50 Mg Tablet 50 Mg PO WITH MEALS & BEDTIME Losartan Potassium 50 Mg Tablet 50 Mg PO DAILY Mucus Relief (Guaifenesin) 400 Mg Tablet 600 Mg PO QID PRN Metoprolol Tartrate 50 Mg Tablet 50 Mg PO BID Cranberry (Cranberry Fruit) 450 Mg Tablet 450 Mg PO BID Hydrocodone-Acetamin 5-325 mg (Hydrocodone/Acetaminophen) 1 Each Tablet 1 Each PO Q6H PRN Novolog Flexpen (Insulin Aspart) 300 Units/3 Ml Solution SQ TIDAC USE PER SLIDING SCALE: 151-200=2 UNITS 201-250=4 UNITS 251-300=6 UNITS 301-350=8 UNITS 351-400=10 UNITS >400 NOTIFY PCP Potassium Chloride 20 Meq Tablet.er 20 Meq PO DAILY Spiriva Respimat 2.5MCG/ACTUATION (Tiotropium [place]) 4 Gm Mist.inhal 2 Puff IH DAILY Nystatin 15 Gm Cream..g. 1 Applic TP TID APPLY TO REDDNESS IN FOLDS Ascorbic Acid 500 Mg Tablet 1,500 Mg PO DAILY Furosemide 20 Mg Tablet 20 Mg PO DAILY Zocor (Simvastatin) 10 Mg Tablet 10 Mg PO HS Wellbutrin Xl (Bupropion HCl) 300 Mg Tab.er.24h 300 Mg PO DAILY Tylenol (Acetaminophen) 325 Mg Tablet 650 Mg PO Q4H PRN TAKES 2 (325MG) TABS Trazodone HCl 150 Mg Tablet 150 Mg PO HS Risperidone 2 Mg Tablet 2 Mg PO BID Docusate Sodium 100 Mg Capsule 100 Mg PO BID Citalopram HBr (Citalopram Hydrobromide) 20 Mg Tablet 20 Mg PO DAILY Pantoprazole Sodium 40 Mg Tablet.dr 40 Mg PO DAILY Lantus Solostar (Insulin Glargine,Hum.rec.anlog) 100 Unit/1 Ml Insuln.pen 48 Units SQ HS Instructions to patient/family Please see electronic discharge instructions given to patient. LUPE ALVES MD Jan 10, 2021 12:27
--- NOTE | 2021-01-10 12:32 | D/C HH Face to Face Order ---
D/C Face to Face Orders Instructions for Patient [facility], Patient Instructions/FollowUp: Please continue to take your medications as written. Please follow up with your primary care doctor to follow up this hospital stay. Physician to follow Patient: Dr Alcantara Discharge Diet for Home: No Restrictions Patient Data-Allergies,Ht & Wt Patient Allergies: Coded Allergies: Penicillins (Unverified Allergy, Mild, HIVES, 11/16/19) duloxetine HCl (Verified Allergy, Mild, 11/16/19) Height (Feet): 5 Height (Inches): 9.00 Weight (Pounds): 260 Weight (Ounces): 0.0 Home Health Need/Face to Face Date of Face to Face: Jan 10, 2021 Clinical Findings: Generalized weakness and fatigue, Unsteady gait I have seen Pt tuet-sp-ivmw: Yes Discharged To: Home Diagnosis/Conditions: MDRO UTI Patient is Homebound due to: Giovanny fall risk due to instabilty, Muscle weakness Homebound Status Due to the above stated illness, injury or surgical procedure (medical condition or diagnosis) and associated clinical findings, the patient is homebound because of his/her inability to leave home except with aid of a supportive device and/or person AND leaving the home requires a considerable and taxing effort or is medically contraindicated. Pt req the following assistanc: Aid of another person, Walker Home Health Nursing Orders Home Health Services Order: Nursing Services, Assistant Press Operator-Evaluate & Treat, Physical Therapy-Evaluate & Treat Therapy Orders Therapy Orders: OT (must have SN or PT order), Physical Therapy Therapy Specific Orders: Eval assistive deivces, Teach enviro modifications/safety, Gait training, Increase strength/endurance Certify Stmt I certify that this patient is under my care and that I, a nurse practitioner or a physician; a executive administrative assistant working with me, had a face to face encounter that - meets the physician face to face encounter requirements with this patient as dated. LUPE ALVES MD Jan 10, 2021 12:31
[2021-01-10 14:58] VITALS: BP 158/83
--- NOTE | 2021-01-11 15:08 | Therapy Team Discharge Summary ---
Therapy Discharge Summary Discharge Recommendations Date of Discharge Jan 10, 2021 at 14:58 Occupational Therapy Pt admitted to [facility] with UTI. At OF, pt required assistance with all ADLs, to claudette assistance with showering and assistance with upper/lower body dressing. Upon initial evaluation, pt required set up assistance with eating, min A oral care, max A showering, max A upper body dressing, total assist lower body dressing, total assist footwear and max A toileting. OT tx focused on increasing BUE Strength and activity tolerance, and increasing safety and independence with ADLs and functional mobility. At discharge pt required set up assistance with eating and oral care, max A showering, mod A upper body dressing, total assist footwear and total assist toileting (catheter). Lower body dressing was not attempted as he did not have any clothing available. Pt made functional progress towards goals but only attained LTGs for eating and oral care. Pt discharged from facility, d/c from OT. Decreased Activ Tolerance, Decreased UE Strength, Impaired Bed Mobility, Impaired Funct Balance, Impaired I ADL's, Impaired Self-Care Skills PT Group Home Goals Set Up Mechanic [employer] Goals PT Set Up Mechanic [employer] Goals Time Frame: Jan 22, 2021 Roll Left to Right (QC): 5 Sit to Lying (QC): 5 Lying-Sitting on Side/Bed(QC): 5 Sit to Stand (QC): 5 Chair/Eut-rd-Mnjgo Xfer(QC): 5 Car Transfer (QC): 5 Does the Patient Walk: Yes Walk 10 feet (QC): 4 Walk 10ft-Uneven Surface(QC): 4 Walk 50ft with 2 Turns (QC): 4 Walk 150 ft (QC): 4 Wheel 50 feet with 2 turns (QC: 9 1 Step (curb) (QC): 9 4 Steps (QC): 9 12 Steps (QC): 9 Picking up an Object (QC): 9 OT Group Home Goals Set Up Mechanic [employer] Goals Time Frame: Jan 21, 2021 Eating (QC): 5 (met) Oral Hygiene (QC): 5 (met) Shower/Bathe Self (QC): 3 (not met) Upper Body Dressing (QC): 4 (not met) Lower Body Dressing (QC): 3 (not met) On/Off Footwear (QC): 3 (not met) Toileting Hygiene (QC): 4 (not met) Toilet/Commode Transfer (QC): 5 Additional Goals: 1-Demonstrate ADL Tasks, 2-Verbalize Understanding, 3- ImproveStrength/Mehdi 1=Demonstrate adherence to instructed precautions during ADL tasks. 2=Patient will verbalize/demonstrate understanding of assistive devices/modifications for ADL. 3=Patient will improve strength/tolerance for activity to enable patient to perform ADL's. Speech Set Up Mechanic [employer] Goals Set Up Mechanic [employer] Goals Pt will improve cognitive-communication skills by completing problem solving and recall tasks with 80% accuracy given minimal verbal/visual cues MINOO ROB OT Jan 11, 2021 15:08
== END 2021-01-10 14:58 | DRG 690 ==
LOC: 4TH 13:30
PROVIDERS: ADMIT Internal Medicine; ATTEND Internal Medicine
DX: N39.0 Urinary tract infection, site not specified (principal); B96.89 Other specified bacterial agents as the cause of diseases classified elsewhere; B96.1 Klebsiella pneumoniae [K. pneumoniae] as the cause of diseases classified elsewhere; N18.9 Chronic kidney disease, unspecified; I25.10 Atherosclerotic heart disease of native coronary artery without angina pectoris; I12.9 Hypertensive chronic kidney disease with stage 1 through stage 4 chronic kidney disease, or unspecified chronic kidney disease; E78.5 Hyperlipidemia, unspecified; E11.22 Type 2 diabetes mellitus with diabetic chronic kidney disease; M19.90 Unspecified osteoarthritis, unspecified site; F03.90 Unspecified dementia, unspecified severity, without behavioral disturbance, psychotic disturbance, mood disturbance, and anxiety; E11.40 Type 2 diabetes mellitus with diabetic neuropathy, unspecified; Z86.73 Personal history of transient ischemic attack (TIA), and cerebral infarction without residual deficits
CPT/HCPCS: 36415; 80048; 82947; 85025; 94640; 94760

== ENCOUNTER 2021-02-24 12:51 | Inpatient (IN) | payer MEDICARE, MEDICAID ==
[~2021-02-24] VITALS: Ht 177.8 cm; Wt 109.8 kg
[2021-02-24 13:34] LABS: BASOPHILS % (AUTO) 0 % (0-10); EOSINOPHILS % (AUTO) 0 % (0-10); HEMATOCRIT 44 % (40-54); HEMOGLOBIN 14.2 g/dL (13.3-17.7); LYMPHOCYTES % (AUTO) 10 % (12-44); MEAN CORPUSCULAR HEMOGLOBIN 29 pg (25-34); MEAN CORPUSCULAR HGB CONC 32 g/dL (32-36); MEAN CORPUSCULAR VOLUME 92 fL (80-99); MONOCYTES # (AUTO) 0.9 10^3/uL (0.0-1.0); MONOCYTES % (AUTO) 9 % (0-12); NEUTROPHILS # (AUTO) 8.1 10^3/uL (1.8-7.8); NEUTROPHILS % (AUTO) 80 % (42-75); PLATELET COUNT 165 10^3/uL (130-400); WHITE BLOOD COUNT 10.1 10^3/uL (4.3-11.0)
[2021-02-24 13:39] LABS: ALBUMIN 3.6 GM/DL (3.2-4.5); POTASSIUM 4.5 MMOL/L (3.6-5.0)
[2021-02-24 13:40] LABS: CALCIUM 9.2 MG/DL (8.5-10.1)
[2021-02-24 13:42] LABS: TOTAL PROTEIN 6.9 GM/DL (6.4-8.2)
[2021-02-24 13:43] LABS: BILIRUBIN,TOTAL 0.7 MG/DL (0.1-1.0)
[2021-02-24 13:45] LABS: CREATININE SERUM 2.01 MG/DL (0.60-1.30)
[2021-02-24] MEDS ORDERED: NS IV 1000 ML 1,000 ML IV SCH (14:15)
[2021-02-24 16:00] LABS: BILIRUBIN,URINE NEGATIVE (NEGATIVE); CLARITY,URINE SL CLOUDY; COLOR,URINE YELLOW; GLUCOSE, URINE (UA) NEGATIVE (NEGATIVE); KETONES,URINE NEGATIVE (NEGATIVE); LEUKOCYTE ESTERASE ,URINE 3+ (NEGATIVE); NITRITE,URINE NEGATIVE (NEGATIVE); PH,URINE 5.5 (5-9); PROTEIN,URINE 1+ (NEGATIVE)
[2021-02-24 16:22] LABS: WBC,URINE >100 /HPF
[2021-02-24 16:23] LABS: BACTERIA,URINE LARGE /HPF
[2021-02-24] MEDS ORDERED: MEROPENEM 500 MG in WATER (STERILE) FOR INJECTION 10 ML IV ONE (17:15)
--- NOTE | 2021-02-24 17:36 | ED General ---
General Chief Complaint: Altered Mental Status Stated Complaint: WEAKNESS, LOC Nursing Triage Note: Pt arrival to ER via [facility] from [facility] with complaint of change of mental status. Staff tells EMS that patient is usually up walking, and joking with people. Today he was more lethargic, and staff had to assist him with eating which is abnormal for him. Pt denies pain, but is unsure of covid status. Staff denies knowing about DNR or advance directive. Pt is alert but slow to respond. Staff tells EMS that patient has had no urine output today, and has history of UTI. Source of Information: Patient, EMS, Snf Records, Old Records, Other (PCP) Exam Limitations: No Limitations History of Present Illness Date Seen by Provider: Feb 24, 2021 Time Seen by Provider: 12:53 Initial Comments This is 75-year-old gentleman presents to the emergency room via EMS from [facility] because he has not been acting himself and appears weak. He has an indwelling leg bag catheter. He has had decreased output from the catheter today. The small amount of fluid that is in the catheter appears milky. Patient is afebrile. See nursing triage comments above. He is known to have urinary tract infection and has been treated with Levaquin and Omnicef for urinary tract infection earlier this month. Allergies and Home Medications Allergies Coded Allergies: Penicillins (Unverified Allergy, Mild, HIVES, 11/16/19) duloxetine HCl (Verified Allergy, Mild, 11/16/19) Patient Home Medication List Home Medication List Reviewed: Yes Acetaminophen (Tylenol) 325 Mg Tablet, 650 MG PO Q4H PRN for PAIN/TEMP, (Reported) Entered as Reported by: TRISH GRANDE on 07/25/16 0901 Ascorbic Acid (Ascorbic Acid) 500 Mg Tablet, 1,500 MG PO DAILY, (Reported) Entered as Reported by: CHEIKH AMARAL on 04/29/19 1323 Aspirin (Aspirin EC) 81 Mg Tablet.dr, 81 MG PO DAILY Prescribed by: SAMI LAM on 01/03/21 1320 Bethanechol Chloride (Bethanechol Chloride) 50 Mg Tablet, 50 MG PO WITH MEALS & BEDTIME, (Reported) Entered as Reported by: CHEIKH AMARAL on 12/30/20 1505 Bupropion HCl (Wellbutrin Xl) 300 Mg Tab.er.24h, 300 MG PO DAILY, (Reported) Entered as Reported by: LLOYD HOOKER on 10/24/16 1517 Citalopram Hydrobromide (Citalopram HBr) 20 Mg Tablet, 20 MG PO DAILY, (Reported) Entered as Reported by: WESTON DYSON on 05/31/15 1528 Cranberry Fruit (Cranberry) 450 Mg Tablet, 450 MG PO BID, (Reported) Entered as Reported by: JUAN TOLLIVER on 11/17/19 1322 Docusate Sodium (Docusate Sodium) 100 Mg Capsule, 100 MG PO BID, (Reported) Entered as Reported by: WESTON DYSON on 05/31/15 1535 Furosemide (Furosemide) 20 Mg Tablet, 20 MG PO DAILY, (Reported) Entered as Reported by: ANGI SKINNER on 06/06/17 0724 Guaifenesin (Mucus Relief) 400 Mg Tablet, 600 MG PO QID PRN for CONGESTION, (Reported) Entered as Reported by: CHEIKH AMARAL on 12/30/20 1505 Hydrocodone/Acetaminophen (Hydrocodone-Acetamin 5-325 mg) 1 Each Tablet, 1 EACH PO Q6H PRN for PAIN-MODERATE (5-7), (Reported) Entered as Reported by: MARGY BONDS on 11/17/19 0051 Insulin Aspart (Novolog Flexpen) 300 Units/3 Ml Solution, SQ TIDAC, (Reported) Entered as Reported by: CHEIKH AMARAL on 04/29/19 1340 Insulin Glargine,Hum.rec.anlog (Lantus Solostar) 100 Unit/1 Ml Insuln.pen, 48 UNITS SQ HS, (Reported) Entered as Reported by: WESTON DYSON on 05/31/15 1528 Losartan Potassium (Losartan Potassium) 50 Mg Tablet, 50 MG PO DAILY, (Reported) Entered as Reported by: CHEIKH AMARAL on 12/30/20 1505 Metoprolol Tartrate (Metoprolol Tartrate) 50 Mg Tablet, 50 MG PO BID, (Reported) Entered as Reported by: JUAN TOLLIVER on 11/17/19 1322 Nystatin (Nystatin) 15 Gm Cream..g., 1 APPLIC TP TID, (Reported) Entered as Reported by: CHEIKH AMARAL on 04/29/19 1323 Pantoprazole Sodium (Pantoprazole Sodium) 40 Mg Tablet.dr, 40 MG PO DAILY, (Reported) Entered as Reported by: WESTON DYSON on 05/31/15 1528 Potassium Chloride (Potassium Chloride) 20 Meq Tablet.er, 20 MEQ PO DAILY, (Re ported) Entered as Reported by: CHEIKH AMARAL on 04/29/19 1323 Risperidone (Risperidone) 2 Mg Tablet, 2 MG PO BID, (Reported) Entered as Reported by: WESTON DYSON on 03/22/16 1336 Simvastatin (Zocor) 10 Mg Tablet, 10 MG PO HS, (Reported) Entered as Reported by: LLOYD HOOKER on 10/24/16 1517 Tiotropium [place] (Spiriva Respimat 2.5MCG/ACTUATION) 4 Gm Mist.inhal, 2 PUFF IH DAILY, (Reported) Entered as Reported by: CHEIKH AMARAL on 04/29/19 1323 Trazodone HCl (Trazodone HCl) 150 Mg Tablet, 150 MG PO HS, (Reported) Entered as Reported by: WESTON DYSON on 03/22/16 1336 Review of Systems Review of Systems Constitutional: see HPI EENTM: no symptoms reported Respiratory: no symptoms reported Cardiovascular: no symptoms reported Gastrointestinal: no symptoms reported Genitourinary: see HPI Musculoskeletal: no symptoms reported Skin: no symptoms reported Psychiatric/Neurological: See HPI Hematologic/Lymphatic: No Symptoms Reported Immunological/Allergic: no symptoms reported Past Igbgwxz-Crxeyq-Vyjwjb Hx Patient Social History Tobacco Use?: No Use of E-Cig and/or Vaping dev: No Substance use?: No Alcohol Use?: No Pt feels they are or have been: No Immunizations Up To Date Influenza Vaccine Up-to-Date: No; Not Current First/Initial COVID19 Vaccinat: unk Second COVID19 Vaccination Evangelista: unk Third COVID19 Vaccination Date: unk Seasonal Allergies Seasonal Allergies: No Past Medical History Surgery/Hospitalization HX: pmh: depression, htn, gerd, edema, diabetic, copd, high cholesterol Surgeries: Yes (CARDIAC CATH 05/2017--PATENT STENT, NON-OCCLUSIIVE CAD--NO INTERVENTION) Cardiac, Coronary Stent, Eye Surgery, Transurethral Resection Respiratory: Yes (HX OF SEPSIS, O2 AT 3 L/NC CONTINUOUSLY; CHRONIC COUGH) Pneumonia, Chronic Bronchitis, Sleep Apnea, COPD Currently Using CPAP: Yes Cardiac: Yes (RBBB, LAFB; CARDIAC CATHS--STENT X 1) Chronic Edema/Swelling, Coronary Artery Disease, High Cholesterol, Hypertension Neurological: Yes Dementia, Neuropathy Reproductive Disorders: No Sexually Transmitted Disease: No HIV/AIDS: No Genitourinary: Yes (INDWELLING ESCALANTE, CHRONIC BILATERAL HYDRONEPHROSIS) Benign Prostatic Hyperpl, Prostate Problems, Neurogenic Bladder, UTI-Chronic Gastrointestinal: Yes Gastroesophageal Reflux, Chronic Constipation Musculoskeletal: Yes Arthritis, Chronic Back Pain Endocrine: Yes (THYROID NODULE) Diabetes, Insulin dep HEENT: Yes (ANGIOEDEMA OF TONGUE) Cataract Hearing Impairment: Hard of Hearing Cancer: No Psychosocial: Yes Sleep Difficulties, Anxiety, Depression Integumentary: No Blood Disorders: No Adverse Reaction/Blood Tranf: No Family Medical History Family history: Hypertension 03 FATHER Stroke 03 MOTHER No Pertinent Family Hx PSH: -CATARACT SURGERY -TURP 10/31/[address] LAROSE -CARDIAC CATHS--STENT X 1--LAST CATH 05/2017--PATENT STENT, NON-OCCLUSIVE CAD, NO INTERVENTION -CHOLECYSTETCOMY Physical Exam Vital Signs Vital Signs - First Documented 02/24/21 12:54 Temp 36.5 Pulse 68 Resp 24 B/P (MAP) 137/67 (90) Pulse Ox 95 O2 Delivery Nasal Cannula O2 Flow Rate 2.00 Capillary Refill : Less Than 3 Seconds Height, Weight, BMI Height: 5'9.00" Weight: 260lbs. 0.0oz. 117.540666wn; 33.00 BMI Method:Stated General Appearance: No Apparent Distress, WD/WN HEENT: PERRL/EOMI, Normal ENT Inspection Neck: Normal Inspection Respiratory: Lungs Clear, Normal Breath Sounds, No Accessory Muscle Use Cardiovascular: Regular Rate, Rhythm, No Edema, No Murmur Gastrointestinal: Non Tender, Soft; No Distended Extremity: Normal Inspection, Non Tender, No Pedal Edema Neurologic/Psychiatric: Alert, web applications administrator II-XII Norm as Tested, Motor Weakness (Generalized), Other (Sluggish mentation and speech without any specific focal deficits. Moves all 4 extremities.) Skin: Normal Color, Warm/Dry Progress/Results/Core Measures Suspected Sepsis SIRS Temperature: Pulse: 68 Respiratory Rate: 24 Laboratory Tests 02/24/21 13:05: White Blood Count 10.1 Blood Pressure 137 /67 Mean: 90 Laboratory Tests 02/24/21 13:05: Creatinine 2.01H, Platelet Count 165, Total Bilirubin 0.7 Results/Orders Lab Results Laboratory Tests Test 02/24/21 13:05 02/24/21 15:50 Range/Units White Blood Count 10.1 4.3-11.0 10^3/uL Red Blood Count 4.84 4.30-5.52 10^6/uL Hemoglobin 14.2 13.3-17.7 g/dL Hematocrit 44 40-54 % Mean Corpuscular Volume 92 80-99 fL Mean Corpuscular Hemoglobin 29 25-34 pg Mean Corpuscular Hemoglobin Concent 32 32-36 g/dL Red Cell Distribution Width 13.0 10.0-14.5 % Platelet Count 165 130-400 10^3/uL Mean Platelet Volume 11.0 9.0-12.2 fL Immature Granulocyte % (Auto) 1 % Neutrophils (%) (Auto) 80 H 42-75 % Lymphocytes (%) (Auto) 10 L 12-44 % Monocytes (%) (Auto) 9 0-12 % Eosinophils (%) (Auto) 0 0-10 % Basophils (%) (Auto) 0 0-10 % Neutrophils # (Auto) 8.1 H 1.8-7.8 10^3/uL Lymphocytes # (Auto) 1.0 1.0-4.0 10^3/uL Monocytes # (Auto) 0.9 0.0-1.0 10^3/uL Eosinophils # (Auto) 0.0 0.0-0.3 10^3/uL Basophils # (Auto) 0.0 0.0-0.1 10^3/uL Immature Granulocyte # (Auto) 0.1 0.0-0.1 10^3/uL Sodium Level 133 L 135-145 MMOL/L Potassium Level 4.5 3.6-5.0 MMOL/L Chloride Level 92 L 98-107 MMOL/L Carbon Dioxide Level 27 21-32 MMOL/L Anion Gap 14 5-14 MMOL/L Blood Urea Nitrogen 30 H 7-18 MG/DL Creatinine 2.01 H 0.60-1.30 MG/DL Estimat Glomerular Filtration Rate 33 BUN/Creatinine Ratio 15 Glucose Level 175 H 70-105 MG/DL Calcium Level 9.2 8.5-10.1 MG/DL Corrected Calcium 9.5 8.5-10.1 MG/DL Magnesium Level 2.0 1.6-2.4 MG/DL Total Bilirubin 0.7 0.1-1.0 MG/DL Aspartate Amino Transf (AST/SGOT) 29 5-34 U/L Alanine Aminotransferase (ALT/SGPT) 37 0-55 U/L Alkaline Phosphatase 98 40-136 U/L C-Reactive Protein High Sensitivity 7.61 H 0.00-0.50 MG/DL Total Protein 6.9 6.4-8.2 GM/DL Albumin 3.6 3.2-4.5 GM/DL Urine Color YELLOW Urine Clarity SL CLOUDY Urine pH 5.5 5-9 Urine Specific [place] 1.025 H 1.016-1.022 Urine Protein 1+ H NEGATIVE Urine Glucose (UA) NEGATIVE NEGATIVE Urine Ketones NEGATIVE NEGATIVE Urine Nitrite NEGATIVE NEGATIVE Urine Bilirubin NEGATIVE NEGATIVE Urine Urobilinogen 0.2 < = 1.0 MG/DL Urine Leukocyte Esterase 3+ H NEGATIVE Urine RBC (Auto) 2+ H NEGATIVE Urine RBC 2-5 H /HPF Urine WBC >100 H /HPF Urine Crystals NONE /LPF Urine Bacteria LARGE H /HPF Urine Casts NONE /LPF Urine Mucus NEGATIVE /LPF Urine Culture Indicated YES My Orders Orders - MIRNA CARRION MD Cbc With Automated Diff (02/24/21 13:27) Comprehensive Metabolic Panel (02/24/21 13:27) Hs C Reactive Protein (02/24/21 13:27) Magnesium (02/24/21 13:27) Ua Culture If Indicated (02/24/21 13:27) Ed Iv/Invasive Line Start (02/24/21 13:27) Ns Iv 1000 Ml (Sodium Chloride 0.9%) (02/24/21 14:15) Urine Culture (02/24/21 15:50) Meropenem (Merrem 500 Mg) (02/24/21 17:15) Medications Given in ED Vital Signs/I&O 02/24/21 12:54 Temp 36.5 Pulse 68 Resp 24 B/P (MAP) 137/67 (90) Pulse Ox 95 O2 Delivery Nasal Cannula O2 Flow Rate 2.00 Capillary Refill : Less Than 3 Seconds Blood Pressure Mean: 90 Progress Note : Progress Note Patient was found to have acute kidney injury. He was given a liter of IV normal saline which helped him produce some urine. Urinalysis reveals significant pyuria. I discussed the situation with his primary care provider, William Pina. She requested that he be admitted to start IV antibiotics and to hydrate well with IV fluids. Meropenem was selected for antibiotic therapy as he seems to have failed Levaquin and Omnicef. He had a prior culture earlier in the year with highly resistant strains of E. coli and Klebsiella. The E. coli strain required IV meropenem. This was discussed with Dr. Mullins. Who accepted admission. I discussed CODE STATUS with the patient and he elects to be in full CODE STATUS. Departure Communication (Admissions) Time/Spoke to Admitting Phy: 17:00 Dr. Mullins Impression Primary Impression: Acute kidney injury Additional Impressions: Urinary tract infection Qualified Codes: N39.0 - Urinary tract infection, site not specified Generalized weakness Disposition: ADMITTED INPATIENT Condition: Improved Admissions Decision to Admit Reason: Admit from ER (General) Decision to Admit/Date: Feb 24, 2021 Time/Decision to Admit Time: 16:45 Departure-Patient Inst. Referrals: VERENA LANCE MD (PCP/Family) Primary Care Physician Copy Copies To 1: WILLIAM PINA JOSHUA T MD Feb 24, 2021 17:36
[2021-02-24 18:22] VITALS: BP 137/67
[2021-02-24] MEDS: traZODone 150 MG (DESYREL) TABLET PO SCH (19:38)
[2021-02-24] MEDS: risperiDONE 2 MG (RisperDAL) TAB PO SCH (19:38)
[2021-02-24] MEDS: SIMvastatin 10 MG (ZOCOR) TAB PO SCH (19:38)
[2021-02-24] MEDS: meTOprolol TARTRATE 50 MG (LOPRESSOR) TAB PO SCH (19:38)
[2021-02-24] MEDS ORDERED: HYDROcodone/APAP 5 MG/325 MG (LORTAB) TAB PO PRN (19:45)
[2021-02-24] MEDS: NS IV 1000 ML 1,000 ML IV SCH (19:47)
[2021-02-24] MEDS ORDERED: RT-ALBUTEROL SULF 2.5 MG/3 ML PRE-MIX VIAL ONE (20:11)
[2021-02-24 20:26] VITALS: BP 140/76
[2021-02-24] MEDS ORDERED: RT-ALBUTEROL SULF 2.5 MG/3 ML PRE-MIX VIAL INH SCH (21:00)
[2021-02-24] MEDS: inSUlin ASPART (NovoLOG) 1 UNIT/0.01 ML (CHARGE PER UNIT) SC SCH (22:23)
[2021-02-24 23:53] VITALS: BP 185/86
[2021-02-25] MEDS: NS IV 1000 ML 1,000 ML IV SCH ×3 (02:36→15:33)
[2021-02-25] MEDS: MEROPENEM 500 MG/SWFI 10 ML IV PUSH IV SCH ×6 (02:36→17:17)
[2021-02-25 03:50] VITALS: BP 186/83
[2021-02-25] MEDS: inSUlin ASPART (NovoLOG) 1 UNIT/0.01 ML (CHARGE PER UNIT) SC SCH ×4 (05:30→21:31)
[2021-02-25 05:35] LABS: BASOPHILS % (AUTO) 0 % (0-10); EOSINOPHILS # (AUTO) 0.1 10^3/uL (0.0-0.3); EOSINOPHILS % (AUTO) 2 % (0-10); HEMATOCRIT 43 % (40-54); LYMPHOCYTES # (AUTO) 1.2 10^3/uL (1.0-4.0); LYMPHOCYTES % (AUTO) 14 % (12-44); MEAN CORPUSCULAR HEMOGLOBIN 30 pg (25-34); MEAN CORPUSCULAR HGB CONC 32 g/dL (32-36); MEAN CORPUSCULAR VOLUME 92 fL (80-99); MEAN PLATELET VOLUME 10.9 fL (9.0-12.2); MONOCYTES # (AUTO) 0.9 10^3/uL (0.0-1.0); MONOCYTES % (AUTO) 11 % (0-12); NEUTROPHILS % (AUTO) 72 % (42-75); PLATELET COUNT 147 10^3/uL (130-400); WHITE BLOOD COUNT 8.3 10^3/uL (4.3-11.0)
[2021-02-25 05:55] LABS: POTASSIUM 3.9 MMOL/L (3.6-5.0)
[2021-02-25 05:56] LABS: CALCIUM 8.6 MG/DL (8.5-10.1)
[2021-02-25 06:01] LABS: CREATININE SERUM 1.61 MG/DL (0.60-1.30)
[2021-02-25] MEDS: meTOprolol TARTRATE 50 MG (LOPRESSOR) TAB PO SCH ×2 (07:41→20:34)
[2021-02-25] MEDS: risperiDONE 2 MG (RisperDAL) TAB PO SCH ×2 (07:41→20:34)
[2021-02-25 08:02] VITALS: BP 137/98
--- NOTE | 2021-02-25 09:20 | History & Physical-Hospitalist ---
History of Present Illness HPI/Chief Complaint Pt is a 75yoCM with a PMH of HTN, CKD, IDDMII, HLD, CAD who presented to the ER due to altered mental status. He normally resides at [facility] and is able to talk and joke with staff. He seemed weak to staff yesterday and was not acting himself so they brought him in for evaluation. He has an indwelling brady catheter and had been treated for UTIs already twice this month. He had an elevated creatinine as well and anormal UA so was admitted for IV abx. Source: patient Date Seen 02/25/21 Time Seen by a Provider: 09:20 Attending Physician Jessi Mullins MD PCP Bhaskar Alcantara MD Referring Physician Date of Admission Feb 24, 2021 at 17:14 Home Medications & Allergies Home Medications Reviewed patient Home Medication Reconciliation performed by pharmacy medication reconciliations management services technician and/or nursing. Patients Allergies have been reviewed. Allergies Allergies Coded Allergies Penicillins (Unverified Allergy, Mild, HIVES, 11/16/19) duloxetine HCl (Verified Allergy, Mild, 11/16/19) Past Vbhkhox-Wckmxe-Sfaabu Hx Patient Social History Employed/Student: retired Tobacco Use?: No Smoking Status: Former Smoker Smokeless Tobacco Frequency: Never a User Use of E-Cig and/or Vaping dev: No Substance use?: No Alcohol Use?: No Pt feels they are or have been: No Immunizations Up To Date Date of Influenza Vaccine: Feb 17, 2021 First/Initial COVID19 Vaccinat: 2020 Second COVID19 Vaccination Evangelista: 2020 Tetanus Booster (TDap): Unknown Date of Pneumonia Vaccine: Mar 07, 2010 Seasonal Allergies Seasonal Allergies: No Current Status Advance Directives: No Advance Directive Location: Unable to obtain copy Communicates: Verbally Primary Language: Honduran Preferred Spoken Language: Honduran Is interpretation needed?: No Implanted or Applied Medical D: CPAP, Stents Past Medical History Surgeries: Cardiac, Coronary Stent, Eye Surgery, Transurethral Resection Pneumonia, Chronic Bronchitis, Sleep Apnea, COPD Currently Using CPAP: Yes Chronic Edema/Swelling, Coronary Artery Disease, High Cholesterol, Hypertension Dementia, Neuropathy Sexually Transmitted Disease: No HIV/AIDS: No Benign Prostatic Hyperpl, Prostate Problems, Neurogenic Bladder, UTI-Chronic Gastroesophageal Reflux, Chronic Constipation Arthritis, Chronic Back Pain Diabetes, Insulin dep Cataract Hearing Impairment: Hard of Hearing Sleep Difficulties, Anxiety, Depression Blood Disorders: No Adverse Reaction/Blood Tranf: No Family Medical History Reviewed Nursing Family Hx Family history: Hypertension 03 FATHER Stroke 03 MOTHER No Pertinent Family Hx PSH: -CATARACT SURGERY -TURP 10/31/[address] LAROSE -CARDIAC CATHS--STENT X 1--LAST CATH 05/2017--PATENT STENT, NON-OCCLUSIVE CAD, NO INTERVENTION -CHOLECYSTETCOMY Review of Systems ROS-Unable to Obtain: dementia Constitutional: see HPI; No chills, No fever; malaise Physical Exam Physical Exam Vital Signs Vital Signs - First Documented 02/24/21 02/24/21 12:54 18:22 Temp 36.5 Pulse 68 Resp 24 B/P (MAP) 137/67 (90) Pulse Ox 95 O2 Delivery Nasal Cannula O2 Flow Rate 2.00 FiO2 2 Capillary Refill : Less Than 3 Seconds Height, Weight, BMI Height: 5'9.00" Weight: 260lbs. 0.0oz. 117.157205kh; 34.89 BMI Method:Stated General Appearance: No Apparent Distress, Chronically ill, Obese HEENT: PERRL/EOMI, Moist Mucous Membranes Neck: Normal Inspection, Supple Respiratory: Lungs Clear, No Accessory Muscle Use, No Respiratory Distress Cardiovascular: Regular Rate, Rhythm, No Murmur Gastrointestinal: Normal Bowel Sounds, Non Tender, Soft Extremity: Normal Capillary Refill, No Calf Tenderness, No Pedal Edema Neurologic/Psychiatric: Alert, Other (oriented to person and place) Skin: Normal Color, Warm/Dry Results Results/Procedures Labs Laboratory Tests 02/24/21 13:05 02/25/21 05:00 Patient resulted labs reviewed. Assessment/Plan Admission Diagnosis UTI-failed outpatient management Admission Status: Inpatient Order (span 2 midnights) Reason for Inpatient Admission: see below Assessment and Plan UTI-failed outpatient management Metabolic encephalopathy Continue on Merrem due to history of resistant e coli Current culture growing e coli, sensitivities pending Not sepsis PT/OT Acute on Chronic Kidney Disease 3A Creatinine improved today back to near baseline DC IVF as oral intake increased IDDMII Continue home meds SSI BS well controlled CAD HTN HLD h/o CVA Continue home meds resume home meds when available DVT ppx: Lovenox Diagnosis/Problems Diagnosis/Problems (1) Acute kidney injury Status: Acute (2) Generalized weakness Status: Acute (3) Urinary tract infection Status: Acute Qualifiers: Urinary tract infection type: site unspecified Hematuria presence: without hematuria Qualified Codes: N39.0 - Urinary tract infection, site not specified (4) Weakness generalized Status: Acute (5) Hypertension Status: Chronic (6) COPD (chronic obstructive pulmonary disease) Status: Acute JESSI MULLINS MD Feb 25, 2021 09:20
[2021-02-25] MEDS ORDERED: MONT10TA32 PO (09:23)
[2021-02-25] MEDS ORDERED: ALBU2.5V4 NEB (09:23)
[2021-02-25] MEDS ORDERED: GUAI-977 PO (09:23)
[2021-02-25] MEDS ORDERED: DEXT1LOZ PO (09:23)
[2021-02-25] MEDS ORDERED: ACET-2267 PO (09:23)
[2021-02-25] MEDS ORDERED: BENZ100C18 PO (09:23)
[2021-02-25] MEDS ORDERED: FLUT1AER PO (09:23)
[2021-02-25] MEDS ORDERED: ALB0.5V NEB (09:23)
[2021-02-25] MEDS ORDERED: ASPI-1238 PO (09:23)
[2021-02-25] MEDS ORDERED: ISOS30TA82 PO (09:23)
[2021-02-25] MEDS ORDERED: LOPE-175 PO (09:23)
[2021-02-25] MEDS ORDERED: ONDA4TAB11 PO (09:23)
[2021-02-25] MEDS ORDERED: RT-ALBUINH IH (09:23)
[2021-02-25] MEDS ORDERED: CHOL4PAC2 PO (09:23)
[2021-02-25] MEDS ORDERED: ONDANSETRON 4 MG (ZOFRAN) ORAL DISSOLVE TAB PO PRN (11:00)
[2021-02-25] MEDS ORDERED: RT-ALBUTEROL SULF 2.5 MG/3 ML PRE-MIX VIAL IH PRN ×2 (11:00)
[2021-02-25] MEDS ORDERED: LOPERAMIDE 2 MG (IMODIUM) TABLET PO PRN (11:00)
[2021-02-25] MEDS ORDERED: BENZONATATE 100 MG (TESSALON) CAPSULE PO PRN (11:00)
[2021-02-25] MEDS ORDERED: ACETAMINOPHEN 325 MG TABLET PO PRN (11:00)
[2021-02-25] MEDS ORDERED: guaiFENesin (MUCINEX) 600 MG TAB PO PRN (11:00)
[2021-02-25] MEDS ORDERED: CHOLESTYRAMINE 4 GM (QUESTRAN LITE, PREVALITE) PKT PO PRN (11:15)
[2021-02-25] MEDS ORDERED: CHLORASEPTIC LOZENGE MM PRN (11:30)
--- NOTE | 2021-02-25 11:41 | Occupational Therapy Eval ---
OT Evaluation-General/PLF Medical Diagnosis Admission Date Feb 24, 2021 at 17:14 Medical Diagnosis: LILIANA, UTI, general weakness Onset Date: Feb 24, 2021 Therapy Diagnosis Therapy Diagnosis: decreased ADL status Height/Weight Height (Feet): 5 Height (Inches): 9.00 Weight (Pounds): 260 Weight (Ounces): 0.0 Precautions Precautions/Isolations: Contact Isolation, Standard Precautions, Pressure Ulcer Referral Physician: Harpreet Referral Reason: Evaluation/Treatment Medical History Pertinent Medical History: Arthritis, CAD, COPD, DM, Dementia, HTN, Neuropathy Additional Medical History HTN, CKD, DM, HLD, CAD, cardiac stent x1 Current History ED via EMS from [facility] due to AMS Social History Home: Assisted Living ([facility] ADL-Prior Level of Function SCALE: Activities may be completed with or without assistive devices. 9-Xbcsnatrpq-zfrczpg completes the activity by him/herself with no assistance from a helper. 5-Set-up or Clean-up Assistance-helper sets up or cleans up; patient completes activity. [place] assists only prior to or following the activity. 4-Supervision or Touching Assistance-helper provides verbal cues and/or touching/steadying and/or contact guard assistance as patient completes activity. Assistance may be provided throughout the activity or intermittently. 3-Partial/Moderate Assistance-helper does LESS THAN HALF the effort. [place] lifts, holds or supports trunk or limbs, but provides less than half the effort. 2-Substantial/Maximal Assistance-helper does MORE THAN HALF the effort. [place] lifts or holds trunk or limbs and provides more than half the effort. 5-Jqseobsox-kqrmvd does ALL the effort. Patient does none of the effort to complete the activity. Or, the assistance of 2 or more helpers is required for the patient to complete the activity. If activity was not attempted, code reason: 7-Patient Refused. 9-Not Applicable-not attempted and the patient did not perform the activity before the current illness, exacerbation or injury. 10-Not Attempted due to Environmental Limitations-(lack of equipment, weather restraints, etc.). 88-Not Attempted due to Medical Conditions or Safety Concerns. ADL PLOF Comments Pt reports he is able to perform functional mobility using FWW, pt unable to provide level of assistance required with mobility. He has total assistance with bathing and dressing, indicates he does not complete any part of his shower. Pt is able to feed himself with set up assistance. He can remove/place dentures in his mouth, assistance to clean/soak. Self Care: Needed Some Help Functional Cognition: Unknown OT Current Status Subjective Pt up in recliner, agreeable to OT evaluation/tx. Pt slow to respond to questions. Mental Status/Objective Patient Orientation: Person, Place Attachments: Shafer Catheter, Oxygen Current Glasses/Contacts: Yes Dentures/Partials: Yes Hand Dominance: Right Upper Extremity ROM WFL, BUE shoulder flexion to approx 90 degrees. Upper Extremity Coordination WFL Upper Extremity Strength grossly 3/5 BUEs ADL-Treatment Shower/Bathe Self (QC): 1 (Per nursing staff report, total assist with showering this AM) On/Off Footwear (QC): 1 (total assist with gripper socks based on clincial judgment.) Toileting Hygiene (QC): 1 (catheter) Other Treatments Pt up in recliner, OT educated pt on purpose and benefit of OT. Pt provided information about PLOF to his ability. He declined ADL tx, but agreeable to UE exercises in order to increase strength and activity tolerance. Nursing staff indicate pt already showered this morning. Pt completed the following BUE exercises, x5 reps each: shoulder flexion (to 90 degrees), elbow flexion/extension and horizontal abduction/adduction. Pt required verbal cues and demonstration for correct technique of exercises and to keep track of reps, rest breaks between exercises. Post tx, pt up in recliner, call light in reach and all needs met. 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 2=Patient will verbalize/demonstrate understanding of assistive devices/modifications for ADL. 3=Patient will improve strength/tolerance for activity to enable patient to perform ADL's. OT Education/Plan Problem List/Assessment Assessment: Decreased Activ Tolerance, Decreased UE Strength, Impaired Funct Balance, Impaired I ADL's, Impaired Self-Care Skills Pt would benefit from short term skilled OT services in order to increase independence with eating and oral care, and to increase strength and activity tolerance to maximize LOF for return to [facility]. Discharge Recommendations Plan/Recommendations: Continue POC Treatment Plan/Plan of Care Patient would benefit from OT for education, treatment and training to promote independence in ADL's, mobility, safety and/or upper extremity function for ADL's. Plan of Care: ADL Retraining, Functional Mobility, UE Funct Exercise/Act Treatment Duration: Mar 09, 2021 Frequency: 5 times per week Estimated Hrs Per Day: .25 hour per day Time/GCodes Start Time: 11:25 Stop Time: 11:35 Total Time Billed (hr/min): 10 Billed Treatment Time 1. MINOO SANTANA OT Feb 25, 2021 11:41
[2021-02-25] MEDS: ENOXAPARIN 40 MG/0.4 ML (LOVENOX) SYR SQ SCH (11:56)
[2021-02-25 12:33] VITALS: BP 174/88
[2021-02-25] MEDS: BETHANECHOL 25 MG (URECHOLINE) TAB PO SCH ×3 (13:44→20:36)
[2021-02-25] MEDS: NYSTATIN CREAM (MYCOSTATIN) 30 GM TUBE TP SCH ×2 (13:44→20:38)
--- NOTE | 2021-02-25 14:00 | Physical Therapy Evaluation ---
PT Evaluation-General Medical Diagnosis Admission Date Feb 24, 2021 at 17:14 Medical Diagnosis: LILIANA, UTI, general weakness Onset Date: Feb 24, 2021 Therapy Diagnosis Therapy Diagnosis: impaired mobility, strength, endurance Height/Weight Height (Feet): 5 Height (Inches): 9.00 Weight (Pounds): 260 Weight (Ounces): 0.0 Precautions Precautions/Isolations: Contact Isolation, Standard Precautions, Pressure Ulcer Referral Physician: Harpreet Reason for Referral: Evaluation/Treatment Medical History Pertinent Medical History: Arthritis, CAD, COPD, DM, Dementia, HTN, Neuropathy Additional Medical History Past Medical History Surgeries: Cardiac, Coronary Stent, Eye Surgery, Transurethral Resection Pneumonia, Chronic Bronchitis, Sleep Apnea, COPD Currently Using CPAP: Yes Chronic Edema/Swelling, Coronary Artery Disease, High Cholesterol, Hypertension Dementia, Neuropathy Sexually Transmitted Disease: No HIV/AIDS: No Benign Prostatic Hyperpl, Prostate Problems, Neurogenic Bladder, UTI-Chronic Gastroesophageal Reflux, Chronic Constipation Arthritis, Chronic Back Pain Diabetes, Insulin dep Cataract Hearing Impairment: Hard of Hearing Sleep Difficulties, Anxiety, Depression Reviewed History: Yes Social History Home: Assisted Living ([facility] Entry Into Home: Level Entry Prior Prior Level of Function SCALE: Activities may be completed with or without assistive devices. 7-Mehvicgxcb-eejbkgk completes the activity by him/herself with no assistance from a helper. 5-Set-up or Clean-up Assistance-helper sets up or cleans up; patient completes activity. [place] assists only prior to or following the activity. 4-Supervision or Touching Assistance-helper provides verbal cues and/or t ouching/steadying and/or contact guard assistance as patient completes activity. Assistance may be provided throughout the activity or intermittently. 3-Partial/Moderate Assistance-helper does LESS THAN HALF the effort. [place] lifts, holds or supports trunk or limbs, but provides less than half the effort. 2-Substantial/Maximal Assistance-helper does MORE THAN HALF the effort. [place] lifts or holds trunk or limbs and provides more than half the effort. 5-Ztihvrxra-xzmxhp does ALL the effort. Patient does none of the effort to complete the activity. Or, the assistance of 2 or more helpers is required for the patient to complete the activity. If activity was not attempted, code reason: 7-Patient Refused. 9-Not Applicable-not attempted and the patient did not perform the activity before the current illness, exacerbation or injury. 10-Not Attempted due to Environmental Limitations-(lack of equipment, weather restraints, etc.). 88-Not Attempted due to Medical Conditions or Safety Concerns. Bed Mobility: 3 Transfers (B,C,W/C): 3 Gait: 3 Prior Devices Use: Walker PT Evaluation-Current Subjective Patient in recliner pre tx, agrees to PT, has no complaints of pain. Pt/Family Goals "to get stronger" Objective Patient Orientation: Person, Place, Situation Attachments: Oxygen ROM/Strength Strength Lower Extremities LLE (hip flexion 3/5, knee flexion 4/5, knee extension 4/5, dorsiflexion 4/5), RLE (hip flexion 3/5, knee flexion 4/5, knee extension 4/5, dorsiflexion 4/5) Sensory Hearing: Functional Hand Dominance: Right Sensation Right Lower Extremit: Intact Sensation Left Lower Extremity: Intact Transfers Sit to Stand (QC): 2 Patient was able to stand with max assist to a rolling walker, he is very retropulsive with standing and could not take a step forward safely, had to sit back down, cues for hand placement and positioning. Balance Sitting Static: Normal Sitting Dynamic: Normal Standing Static: Poor Standing Dynamic: Poor Treatment BLE seated exercises x20 (AP, LAQ) Assessment/Needs Patient in recliner post tx with nurse call, phone, tray, all needs met. Patient has impaired mobility, strength, endurance. He is very retropulsive whe n standing and cannot takes steps safely at this time. Would benefit from skilled PT intervention to work on these issues. Rehab Potential: Fair PT Pedigree Tracer Goals Care Home Goals PT Care Home Goals Time Frame: Mar 04, 2021 Roll Left & Right (QC): 6 Sit to Lying (QC): 3 Lying-Sitting on Side/Bed(QC): 3 Sit to Stand (QC): 3 Chair/Xkc-dz-Xzlka Xfer(QC): 3 Walk 10 feet (QC): 3 PT Plan Problem List Problem List: Activity Tolerance, Functional Strength, Safety, Balance, Gait, Transfer, Bed Mobility, ROM Treatment/Plan Treatment Plan: Continue Plan of Care Treatment Plan: Bed Mobility, Education, Functional Activity Mehdi, Functional Strength, Gait, Safety, Therapeutic Exercise, Transfers Treatment Duration: Mar 04, 2021 Frequency: 6 times per week Estimated Hrs Per Day: .25 hour per day Patient and/or Family Agrees t: Yes Safety Risks/Education Patient Education: Correct Positioning, Safety Issues Teaching Recipient: Patient Teaching Methods: Demonstration, Discussion Response to Teaching: Reinforcement Needed Discharge Recommendations Plan Patient will perform bed mobility and transfer training, balance and endurance training, functional strengthening, gait training, and education, to improve functional mobility and independence at home. Therapy Discharge Recommendati: 24 Hour Supervision, Post Acute PT Time/GCodes Time In: 1320 Time Out: 1337 Total Billed Treatment Time: 17 Total Billed Treatment 1 visit PATSY HUFF PT Feb 25, 2021 14:00
[2021-02-25 16:08] VITALS: BP_SYST 195; BP_SYST 198; BP_DIAS 81; BP_DIAS 95
[2021-02-25 19:43] VITALS: BP 189/89
[2021-02-25] MEDS: CATHETER FLUSH 10 ML SYR IV PRN (20:34)
[2021-02-25] MEDS: MONTELUKAST 10 MG (SINGULAIR) TAB PO SCH (20:34)
[2021-02-25] MEDS: buPROPion SR 150 MG (WELLBUTRIN SR) TAB PO SCH (20:34)
[2021-02-25] MEDS: DOCUSATE SODIUM 100 MG (COLACE) CAP PO SCH (20:34)
[2021-02-25] MEDS: ISOSORBIDE MONONITRATE 30 MG (IMDUR) TAB PO SCH (20:34)
[2021-02-25] MEDS: SIMvastatin 10 MG (ZOCOR) TAB PO SCH (20:34)
[2021-02-25] MEDS: traZODone 150 MG (DESYREL) TABLET PO SCH (20:34)
[2021-02-25] MEDS: RT-ALBUTEROL SULF 2.5 MG/3 ML PRE-MIX VIAL INH SCH ×2 (21:37→21:44)
[2021-02-25] MEDS: RT--FLUTICASONE/SALMETEROL 113-14 (AIRDUO RespiCLICK) IH SCH (21:37)
[2021-02-26] VITALS (8 sets, daily range): BP systolic 122–195; BP diastolic 66–102
[2021-02-26] MEDS: MEROPENEM 500 MG/SWFI 10 ML IV PUSH IV SCH ×8 (00:24→23:46)
[2021-02-26] MEDS: CATHETER FLUSH 10 ML SYR IV PRN (00:26)
[2021-02-26] MEDS: ASCORBIC ACID (VIT C) 500 MG TABLET PO SCH (05:42)
[2021-02-26] MEDS: KCL 20 MEQ TAB (K-DUR) PO SCH (05:42)
[2021-02-26] MEDS: inSUlin ASPART (NovoLOG) 1 UNIT/0.01 ML (CHARGE PER UNIT) SC SCH ×4 (05:42→20:29)
[2021-02-26] MEDS: DOCUSATE SODIUM 100 MG (COLACE) CAP PO SCH ×2 (09:25→20:11)
[2021-02-26] MEDS: LOSARTAN 50 MG (COZAAR) TAB PO SCH (09:25)
[2021-02-26] MEDS: FUROSEMIDE 20 MG (LASIX) TAB PO SCH (09:26)
[2021-02-26] MEDS: ASPIRIN E.C. 81 MG (ECOTRIN) TAB PO SCH (09:26)
[2021-02-26] MEDS: BETHANECHOL 25 MG (URECHOLINE) TAB PO SCH ×4 (09:26→20:11)
[2021-02-26] MEDS: risperiDONE 2 MG (RisperDAL) TAB PO SCH ×2 (09:26→20:11)
[2021-02-26] MEDS: buPROPion SR 150 MG (WELLBUTRIN SR) TAB PO SCH ×2 (09:26→20:11)
[2021-02-26] MEDS: meTOprolol TARTRATE 50 MG (LOPRESSOR) TAB PO SCH ×2 (09:26→20:11)
[2021-02-26] MEDS: PANTOPRAZOLE 40 MG (PROTONIX) TAB PO SCH (09:26)
[2021-02-26] MEDS: NYSTATIN CREAM (MYCOSTATIN) 30 GM TUBE TP SCH ×3 (09:28→20:11)
[2021-02-26] MEDS: RT-ALBUTEROL SULF 2.5 MG/3 ML PRE-MIX VIAL INH SCH ×2 (11:13→21:50)
[2021-02-26] MEDS: UMECLIDINIUM BROMIDE (INCRUSE ELLIPTA) 7'S IH SCH (11:15)
[2021-02-26] MEDS: RT--FLUTICASONE/SALMETEROL 113-14 (AIRDUO RespiCLICK) IH SCH ×2 (11:15→21:50)
--- NOTE | 2021-02-26 11:34 | Progress Note - Hospitalist ---
Subjective HPI/CC On Admission Date Seen by Provider: Feb 26, 2021 Time Seen by Provider: 11:32 Pt is a 75yoCM with a PMH of HTN, CKD, IDDMII, HLD, CAD who presented to the ER due to altered mental status. He normally resides at [facility] and is able to talk and joke with staff. He seemed weak to staff yesterday and was not acting himself so they brought him in for evaluation. He has an indwelling brady catheter and had been treated for UTIs already twice this month. He had an elevated creatinine as well and anormal UA so was admitted for IV abx. Subjective/Events-last exam Pt reports feeling better today. More energetic. Eating well. Objective Exam Vital Signs Vital Signs Date Time Temp Pulse Resp B/P (MAP) Pulse Ox O2 Delivery O2 Flow Rate FiO2 02/26/21 11:21 36.0 67 16 172/80 (110) 94 Nasal Cannula 2.00 02/24/21 18:22 2 Capillary Refill : Less Than 3 Seconds General Appearance: No Apparent Distress, Chronically ill, Obese Respiratory: Lungs Clear, No Respiratory Distress Cardiovascular: Regular Rate, Rhythm, No Murmur Neurologic/Psychiatric: Alert, Oriented x3 Results/Procedures Lab Patient resulted labs reviewed. Assessment/Plan Assessment and Plan Assess & Plan/Chief Complaint UTI-failed outpatient management Metabolic encephalopathy Continue on Merrem due to history of resistant e coli Current culture growing e coli, sensitivities pending still Not sepsis PT/OT Acute on Chronic Kidney Disease 3A Creatinine improved IDDMII Continue home meds SSI BS well controlled CAD HTN HLD h/o CVA Continue home meds resume home meds DVT ppx: Lovenox Diagnosis/Problems Diagnosis/Problems (1) Acute kidney injury Status: Acute (2) Generalized weakness Status: Acute (3) Urinary tract infection Status: Acute Qualifiers: Urinary tract infection type: site unspecified Hematuria presence: without hematuria Qualified Codes: N39.0 - Urinary tract infection, site not specified (4) Weakness generalized Status: Acute (5) Hypertension Status: Chronic (6) COPD (chronic obstructive pulmonary disease) Status: Acute LUPE ALVES MD Feb 26, 2021 11:34
[2021-02-26] MEDS: ENOXAPARIN 40 MG/0.4 ML (LOVENOX) SYR SQ SCH (11:46)
--- NOTE | 2021-02-26 12:29 | Physical Therapy Daily Note ---
PT Daily Note-Current Subjective Pt is somnolent throughout treatment. He agreed to bed exercises and requested to stay in bed. Mental Status Patient Orientation: Person, Time, [place] Transfers SCALE: Activities may be completed with or without assistive devices. 5-Bbmcgkyfmn-ohabgdf completes the activity by him/herself with no assistance from a helper. 5-Set-up or Clean-up Assistance-helper sets up or cleans up; patient completes activity. [place] assists only prior to or following the activity. 4-Supervision or Touching Assistance-helper provides verbal cues and/or touching/steadying and/or contact guard assistance as patient completes activity. Assistance may be provided throughout the activity or intermittently. 3-Partial/Moderate Assistance-helper does LESS THAN HALF the effort. [place] lifts, holds or supports trunk or limbs, but provides less than half the effort. 2-Substantial/Maximal Assistance-helper does MORE THAN HALF the effort. [place] lifts or holds trunk or limbs and provides more than half the effort. 1-Izbdubxix-pmkedq does ALL the effort. Patient does none of the effort to complete the activity. Or, the assistance of 2 or more helpers is required for the patient to complete the activity. If activity was not attempted, code reason: 7-Patient Refused. 9-Not Applicable-not attempted and the patient did not perform the activity before the current illness, exacerbation or injury. 10-Not Attempted due to Environmental Limitations-(lack of equipment, weather restraints, etc.). 88-Not Attempted due to Medical Conditions or Safety Concerns. Exercises Supine Ex: LE Protocol Supine Reps: 20 Assessment Current Status: Fair Progress Pt struggled to stay awake during treatment and required frequent redirects to perform the exercises. PT Prison Goals Prison Goals PT Prison Goals Time Frame: Mar 04, 2021 Roll Left & Right (QC): 6 Sit to Lying (QC): 3 Lying-Sitting on Side/Bed(QC): 3 Sit to Stand (QC): 3 Chair/Bso-vb-Uicss Xfer(QC): 3 Walk 10 feet (QC): 3 PT Plan Treatment/Plan Treatment Plan: Continue Plan of Care Treatment Plan: Bed Mobility, Education, Functional Activity Mehdi, Functional Strength, Gait, Safety, Therapeutic Exercise, Transfers Treatment Duration: Mar 04, 2021 Frequency: 6 times per week Estimated Hrs Per Day: .25 hour per day Patient and/or Family Agrees t: Yes Time/GCodes Time In: 940 Time Out: 954 Total Billed Treatment Time: 14 Total Billed Treatment 1, ex 14 ZELDA SHANKS PT Feb 26, 2021 12:29
[2021-02-26] MEDS: traZODone 150 MG (DESYREL) TABLET PO SCH (20:11)
[2021-02-26] MEDS: SIMvastatin 10 MG (ZOCOR) TAB PO SCH (20:11)
[2021-02-26] MEDS: MONTELUKAST 10 MG (SINGULAIR) TAB PO SCH (20:11)
[2021-02-26] MEDS: ISOSORBIDE MONONITRATE 30 MG (IMDUR) TAB PO SCH (20:11)
[2021-02-27 04:23] VITALS: BP 136/73
[2021-02-27] MEDS: inSUlin ASPART (NovoLOG) 1 UNIT/0.01 ML (CHARGE PER UNIT) SC SCH ×4 (05:59→20:49)
[2021-02-27] MEDS: ASCORBIC ACID (VIT C) 500 MG TABLET PO SCH (06:00)
[2021-02-27] MEDS: KCL 20 MEQ TAB (K-DUR) PO SCH (06:00)
[2021-02-27 06:03] LABS: HEMATOCRIT 41 % (40-54); HEMOGLOBIN 13.1 g/dL (13.3-17.7); MEAN CORPUSCULAR HEMOGLOBIN 29 pg (25-34); MEAN CORPUSCULAR HGB CONC 32 g/dL (32-36); MEAN CORPUSCULAR VOLUME 91 fL (80-99); MEAN PLATELET VOLUME 10.6 fL (9.0-12.2); PLATELET COUNT 154 10^3/uL (130-400); WHITE BLOOD COUNT 7.2 10^3/uL (4.3-11.0)
[2021-02-27 06:16] LABS: POTASSIUM 3.9 MMOL/L (3.6-5.0)
[2021-02-27 06:18] LABS: CALCIUM 8.8 MG/DL (8.5-10.1)
[2021-02-27 06:22] LABS: CREATININE SERUM 1.41 MG/DL (0.60-1.30)
[2021-02-27] MEDS: RT-ALBUTEROL SULF 2.5 MG/3 ML PRE-MIX VIAL INH SCH ×2 (07:40→21:29)
[2021-02-27] MEDS: RT--FLUTICASONE/SALMETEROL 113-14 (AIRDUO RespiCLICK) IH SCH ×2 (07:41→21:30)
[2021-02-27] MEDS: UMECLIDINIUM BROMIDE (INCRUSE ELLIPTA) 7'S IH SCH (07:41)
[2021-02-27 08:06] VITALS: BP 165/84
[2021-02-27] MEDS: NYSTATIN CREAM (MYCOSTATIN) 30 GM TUBE TP SCH ×3 (09:20→20:04)
[2021-02-27] MEDS: LOSARTAN 50 MG (COZAAR) TAB PO SCH (09:21)
[2021-02-27] MEDS: meTOprolol TARTRATE 50 MG (LOPRESSOR) TAB PO SCH ×2 (09:21→20:08)
[2021-02-27] MEDS: risperiDONE 2 MG (RisperDAL) TAB PO SCH ×2 (09:21→20:04)
[2021-02-27] MEDS: buPROPion SR 150 MG (WELLBUTRIN SR) TAB PO SCH ×2 (09:21→20:04)
[2021-02-27] MEDS: PANTOPRAZOLE 40 MG (PROTONIX) TAB PO SCH (09:21)
[2021-02-27] MEDS: DOCUSATE SODIUM 100 MG (COLACE) CAP PO SCH ×2 (09:21→20:04)
[2021-02-27] MEDS: ASPIRIN E.C. 81 MG (ECOTRIN) TAB PO SCH (09:21)
[2021-02-27] MEDS: FUROSEMIDE 20 MG (LASIX) TAB PO SCH (09:21)
[2021-02-27] MEDS: MEROPENEM 500 MG/SWFI 10 ML IV PUSH IV SCH ×4 (09:24→18:23)
[2021-02-27] MEDS: BETHANECHOL 25 MG (URECHOLINE) TAB PO SCH ×4 (09:29→21:15)
--- NOTE | 2021-02-27 10:12 | Progress Note - Hospitalist ---
Subjective HPI/CC On Admission Date Seen by Provider: Feb 27, 2021 Time Seen by Provider: 10:11 Pt is a 75yoCM with a PMH of HTN, CKD, IDDMII, HLD, CAD who presented to the ER due to altered mental status. He normally resides at [facility] and is able to talk and joke with staff. He seemed weak to staff yesterday and was not acting himself so they brought him in for evaluation. He has an indwelling brady catheter and had been treated for UTIs already twice this month. He had an elevated creatinine as well and anormal UA so was admitted for IV abx. Subjective/Events-last exam Pt reports doing well. No complaints. Discussed plan for DC home tomorrow if sensitivities back and amenable to outpatient abx. Objective Exam Vital Signs Vital Signs Date Time Temp Pulse Resp B/P (MAP) Pulse Ox O2 Delivery O2 Flow Rate FiO2 02/27/21 08:06 36.3 62 18 165/84 (111) 93 Nasal Cannula 1.00 02/24/21 18:22 2 Capillary Refill : Less Than 3 Seconds General Appearance: No Apparent Distress, Chronically ill, Obese Cardiovascular: Regular Rate, Rhythm, No Murmur Gastrointestinal: Normal Bowel Sounds, Non Tender, Soft Neurologic/Psychiatric: Alert, Oriented x3 Results/Procedures Lab Laboratory Tests 02/27/21 05:40 Patient resulted labs reviewed. Assessment/Plan Assessment and Plan Assess & Plan/Chief Complaint UTI-failed outpatient management Metabolic encephalopathy Continue on Merrem due to history of resistant e coli Current culture growing e coli and enterobacter, sensitivities pending still Not sepsis PT/OT Acute on Chronic Kidney Disease 3A Creatinine improved, back to baseline IDDMII Continue home meds SSI BS well controlled CAD HTN HLD h/o CVA Continue home meds DVT ppx: Lovenox Diagnosis/Problems Diagnosis/Problems (1) Acute kidney injury Status: Acute (2) Generalized weakness Status: Acute (3) Urinary tract infection Status: Acute Qualifiers: Urinary tract infection type: site unspecified Hematuria presence: without hematuria Qualified Codes: N39.0 - Urinary tract infection, site not specified (4) Weakness generalized Status: Acute (5) Hypertension Status: Chronic (6) COPD (chronic obstructive pulmonary disease) Status: Acute LUPE ALVES MD Feb 27, 2021 10:12
[2021-02-27 11:36] VITALS: BP 191/88
[2021-02-27] MEDS: ENOXAPARIN 40 MG/0.4 ML (LOVENOX) SYR SQ SCH (12:40)
[2021-02-27 16:00] VITALS: BP 184/97
[2021-02-27 19:31] VITALS: BP 187/93
[2021-02-27] MEDS: MONTELUKAST 10 MG (SINGULAIR) TAB PO SCH (20:04)
[2021-02-27] MEDS: SIMvastatin 10 MG (ZOCOR) TAB PO SCH (20:04)
[2021-02-27] MEDS: ISOSORBIDE MONONITRATE 30 MG (IMDUR) TAB PO SCH (20:04)
[2021-02-27] MEDS: traZODone 150 MG (DESYREL) TABLET PO SCH (20:04)
[2021-02-27 23:30] VITALS: BP 179/100
[2021-02-28] MEDS: MEROPENEM 500 MG/SWFI 10 ML IV PUSH IV SCH ×4 (00:18→08:39)
[2021-02-28 04:00] VITALS: BP 153/88
[2021-02-28] MEDS: inSUlin ASPART (NovoLOG) 1 UNIT/0.01 ML (CHARGE PER UNIT) SC SCH ×2 (05:41→10:56)
[2021-02-28] MEDS: KCL 20 MEQ TAB (K-DUR) PO SCH (05:42)
[2021-02-28] MEDS: ASCORBIC ACID (VIT C) 500 MG TABLET PO SCH (05:42)
[2021-02-28 07:04] LABS: CALCIUM 9.1 MG/DL (8.5-10.1)
[2021-02-28 07:09] LABS: CREATININE SERUM 1.53 MG/DL (0.60-1.30)
[2021-02-28 07:40] VITALS: BP 151/84
[2021-02-28 07:46] LABS: HEMATOCRIT 41 % (40-54); HEMOGLOBIN 13.3 g/dL (13.3-17.7); MEAN CORPUSCULAR HEMOGLOBIN 29 pg (25-34); MEAN CORPUSCULAR HGB CONC 32 g/dL (32-36); MEAN CORPUSCULAR VOLUME 91 fL (80-99); MEAN PLATELET VOLUME 10.8 fL (9.0-12.2); PLATELET COUNT 152 10^3/uL (130-400); WHITE BLOOD COUNT 7.9 10^3/uL (4.3-11.0)
[2021-02-28] MEDS: RT-ALBUTEROL SULF 2.5 MG/3 ML PRE-MIX VIAL INH SCH (08:24)
[2021-02-28] MEDS: RT--FLUTICASONE/SALMETEROL 113-14 (AIRDUO RespiCLICK) IH SCH (08:24)
[2021-02-28] MEDS: UMECLIDINIUM BROMIDE (INCRUSE ELLIPTA) 7'S IH SCH (08:25)
[2021-02-28] MEDS: ASPIRIN E.C. 81 MG (ECOTRIN) TAB PO SCH (08:39)
[2021-02-28] MEDS: NYSTATIN CREAM (MYCOSTATIN) 30 GM TUBE TP SCH ×2 (08:40→13:12)
[2021-02-28] MEDS: FUROSEMIDE 20 MG (LASIX) TAB PO SCH (08:40)
[2021-02-28] MEDS: risperiDONE 2 MG (RisperDAL) TAB PO SCH (08:40)
[2021-02-28] MEDS: PANTOPRAZOLE 40 MG (PROTONIX) TAB PO SCH (08:40)
[2021-02-28] MEDS: meTOprolol TARTRATE 50 MG (LOPRESSOR) TAB PO SCH (08:40)
[2021-02-28] MEDS: DOCUSATE SODIUM 100 MG (COLACE) CAP PO SCH (08:40)
[2021-02-28] MEDS: LOSARTAN 50 MG (COZAAR) TAB PO SCH (08:40)
[2021-02-28] MEDS: buPROPion SR 150 MG (WELLBUTRIN SR) TAB PO SCH (08:40)
[2021-02-28] MEDS: BETHANECHOL 25 MG (URECHOLINE) TAB PO SCH ×2 (08:46→11:54)
[2021-02-28] MEDS: ENOXAPARIN 40 MG/0.4 ML (LOVENOX) SYR SQ SCH (11:54)
--- NOTE | 2021-02-28 12:07 | Occupational Ther Daily Note ---
OT Current Status-Daily Note Subjective Pt was lying supine in bed upon OT arrival. Pt stated he would participate in tx session. Mental Status/Objective Patient Orientation: Person, Place Attachments: Shafer Catheter, IV, Oxygen ADL-Treatment Therapy Code Descriptions/Definitions Functional [place] Measure: 0=Not Assessed/NA 4=Minimal Assistance 1=Total Assistance 5=Supervision or Setup 2=Maximal Assistance 6=Modified [place] 3=Moderate Assistance 7=Complete IndependenceSCALE: Activities may be completed with or without assistive devices. 5-Rkkelwqcco-vndyihc completes the activity by him/herself with no assistance from a helper. 5-Set-up or Clean-up Assistance-helper sets up or cleans up; patient completes activity. [place] assists only prior to or following the activity. 4-Supervision or Touching Assistance-helper provides verbal cues and/or touching/steadying and/or contact guard assistance as patient completes activity . Assistance may be provided throughout the activity or intermittently. 3-Partial/Moderate Assistance-helper does LESS THAN HALF the effort. [place] lifts, holds or supports trunk or limbs, but provides less than half the effort. 2-Substantial/Maximal Assistance-helper does MORE THAN HALF the effort. [place] lifts or holds trunk or limbs and provides more than half the effort. 8-Itsimdpjs-zbbcge does ALL the effort. Patient does none of the effort to complete the activity. Or, the assistance of 2 or more helpers is required for the patient to complete the activity. If activity was not attempted, code reason: 7-Patient Refused. 9-Not Applicable-not attempted and the patient did not perform the activity before the current illness, exacerbation or injury. 10-Not Attempted due to Environmental Limitations-(lack of equipment, weather restraints, etc.). 88-Not Attempted due to Medical Conditions or Safety Concerns. Eating (QC): 5 (set up assist with drinking coffee with lid) Other Treatment Pt was lying supine in bed upon OT arrival, leaning towards his L side. Pt stated he would participate in tx session. Pt performed bed mobility to reposition in bed and scoot up towards HOB, requiring x2 assist, w/ several VC's for safety and skill, and assistance with placing hands. OT positioned pt with pillow at L side in order to assist pt in maintaining midline position. Pt was lying supine in bed w/ HOB elevated in order to drink coffee. He spilled some coffee down his chin and onto his chest. Pt then performed face washing w/ Min assist and VC's for accuracy to support grooming and clean up spilled coffee. Post tx session, pt was lying supine in bed w/ HOB elevated, call light within reach, and all needs met. 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 2=Patient will verbalize/demonstrate understanding of assistive devices/modifications for ADL. 3=Patient will improve strength/tolerance for activity to enable patient to perform ADL's. OT Education/Plan Problem List/Assessment Assessment: Decreased Activ Tolerance, Decreased Safety Aware, Decreased UE Strength, Impaired Bed Mobility, Impaired Cognition, Impaired Coordination, Impaired Funct Balance, Impaired I ADL's, Impaired Self-Care Skills Pt would benefit from short term skilled OT services in order to increase independence with eating and oral care, and to increase strength and activity tolerance to maximize LOF for return to [facility]. Discharge Recommendations Plan/Recommendations: Continue POC Treatment Plan/Plan of Care Patient would benefit from OT for education, treatment and training to promote independence in ADL's, mobility, safety and/or upper extremity function for ADL's. Plan of Care: ADL Retraining, Functional Mobility, UE Funct Exercise/Act Treatment Duration: Mar 09, 2021 Frequency: 5 times per week Estimated Hrs Per Day: .25 hour per day Rehab Potential: Fair Time/GCodes Start Time: 11:23 Stop Time: 11:35 Total Time Billed (hr/min): 12 Billed Treatment Time 1 Visit, ADL MINOO ROB OT Feb 28, 2021 12:07
[2021-02-28] MEDS ORDERED: ERTA1VIA4 IV (12:28)
--- NOTE | 2021-02-28 13:26 | Discharge Summary ---
Discharge Summary Hospital Course Problems/Dx: (1) UTI due to extended-spectrum beta lactamase (ESBL) producing Escherichia coli Status: Acute (2) Acute kidney injury Status: Acute (3) Generalized weakness Status: Acute (4) Urinary tract infection Status: Acute Qualifiers: Qualified Codes: N39.0 - Urinary tract infection, site not specified (5) Weakness generalized Status: Acute (6) Hypertension Status: Chronic (7) COPD (chronic obstructive pulmonary disease) Status: Acute Hospital Course Date of Admission: Feb 24, 2021 at 17:14 Admission Diagnosis : UTI Family Physician/Provider: Verena Lance MD Date of Discharge: 02/28/21 Discharge Diagnosis: ESBL E coli UTI Hospital Course: Dick Ann is a 75 year old male who was admitted with UTI after failing out patient antibiotics. He was treated with IV Merrem. He was found to have an ESBL E coli UTI. He was set up to receive IV Ertapenem outpatient. He was discharged home in stable condition. He should follow up with his PCP in a week or two. Labs and Pending Lab Test: Laboratory Tests 02/27/21 16:28: Glucometer 136H 02/27/21 20:38: Glucometer 153H 02/28/21 05:40: Glucometer 146H 02/28/21 06:15: White Blood Count 7.9, Red Blood Count 4.54, Hemoglobin 13.3, Hematocrit 41, Me an Corpuscular Volume 91, Mean Corpuscular Hemoglobin 29, Mean Corpuscular Hemoglobin Concent 32, Red Cell Distribution Width 12.9, Platelet Count 152, Mean Platelet Volume 10.8, Sodium Level 136, Potassium Level 4.0, Chloride Level 96L, Carbon Dioxide Level 29, Anion Gap 11, Blood Urea Nitrogen 24H, Creatinine 1.53H, Estimat Glomerular Filtration Rate 45, BUN/Creatinine Ratio 16, Glucose Level 149H, Calcium Level 9.1 02/28/21 10:48: Glucometer 185H Microbiology 02/24/21 Urine Culture - Final, Complete Escherichia coli Enterobacter cloacae complex Susceptibility To Follow Home Meds Active Ertapenem (Ertapenem Sodium) 1 Gm Vial 1 Gm IV DAILY 4 Days Reported Tylenol Extra Strength (Acetaminophen) 500 Mg Tablet 500 Mg PO Q4H PRN Aspirin EC (Aspirin) 81 Mg Tablet.dr 81 Mg PO DAILY Breo Ellipta 100-25 Mcg INH (Fluticasone/Vilanterol) 1 Each Blst.w.dev 1 Ea PO DAILY Imodium A-D (Loperamide HCl) 2 Mg Capsule 2 Mg PO UD PRN MDD 16MG TAKE AFTER EACH LOOSE STOOL Ondansetron Odt (Ondansetron) 4 Mg Tab.rapdis 4 Mg PO Q4H PRN Proair Hfa (Albuterol Sulfate) 1 Puff Puff 2 Puff IH QID PRN Tessalon Perles (Benzonatate) 100 Mg Capsule 200 Mg PO TID PRN Cepacol Sorethroat-Cough Jeyson (Dextromethorphan HBr/B-Sergio) 1 Each Lozenge 1 Each PO EVERY 2 HOURS PRN Isosorbide Mononitrate ER (Isosorbide Mononitrate) 30 Mg Tab.er.24h 30 Mg PO 2000 Albuterol Sulfate 2.5 Mg/0.5 Ml Vial.neb 3 Ml NEB Q4H Albuterol Sulfate 2.5 Mg/3 Ml Vial.neb 3 Ml NEB EVERY 2 HOURS PRN Cholestyramine Packet (Cholestyramine (with Sugar)) 4 Gm Powd.pack 1 Packet PO Q8H PRN Montelukast Sodium 10 Mg Tablet 10 Mg PO DAILY Mucus Relief (Guaifenesin) 600 Mg Tab.er.12h 600 Mg PO QID PRN Bethanechol Chloride 50 Mg Tablet 50 Mg PO WITH MEALS & BEDTIME Losartan Potassium 50 Mg Tablet 50 Mg PO DAILY Metoprolol Tartrate 50 Mg Tablet 50 Mg PO BID TAKE PULSE BEFORE GIVING Cranberry (Cranberry Fruit) 450 Mg Tablet 450 Mg PO BID Hydrocodone-Acetamin 5-325 mg (Hydrocodone/Acetaminophen) 1 Each Tablet 0.5-1 Each PO Q6H PRN Novolog Flexpen (Insulin Aspart) 300 Units/3 Ml Solution Units SQ TIDAC USE PER SLIDING SCALE: 151-200=2 UNITS 201-250=4 UNITS 251-300=6 UNITS 301-350=8 UNITS 351-400=10 UNITS >400 NOTIFY PCP Potassium Chloride 20 Meq Tablet.er 20 Meq PO DAILY Spiriva Respimat 2.5MCG/ACTUATION (Tiotropium [place]) 4 Gm Mist.inhal 2 Puff IH DAILY Nystatin 15 Gm Cream..g. 1 Applic TP 0800,1400,1999 APPLY TO REDDNESS IN FOLDS Ascorbic Acid 500 Mg Tablet 1,500 Mg PO DAILY Furosemide 20 Mg Tablet 20 Mg PO DAILY Zocor (Simvastatin) 10 Mg Tablet 10 Mg PO HS Wellbutrin Xl (Bupropion HCl) 300 Mg Tab.er.24h 300 Mg PO DAILY Tylenol (Acetaminophen) 325 Mg Tablet 650 Mg PO Q4H PRN TAKES 2 (325MG) TABS Trazodone HCl 150 Mg Tablet 150 Mg PO HS Risperidone 2 Mg Tablet 2 Mg PO BID Docusate Sodium 100 Mg Capsule 100 Mg PO BID Citalopram HBr (Citalopram Hydrobromide) 20 Mg Tablet 20 Mg PO DAILY Pantoprazole Sodium 40 Mg Tablet.dr 40 Mg PO DAILY Lantus Solostar (Insulin Glargine,Hum.rec.anlog) 100 Unit/1 Ml Insuln.pen 48 Units SQ HS Assessment/Pt Instructions Take medications as prescribed. Follow up with your PCP. Return with worsening symptoms. Discharge Planning: <30 minutes discharge planning Discharge Instructions Discharge Diet: No Restrictions Activity as Tolerated: Yes Discharge Physical Examination Vital Signs Vital Signs Date Time Temp Pulse Resp B/P (MAP) Pulse Ox O2 Delivery O2 Flow Rate FiO2 02/28/21 08:31 Nasal Cannula 2.00 02/28/21 08:25 95 02/28/21 07:40 36.7 67 19 151/84 (106) 02/24/21 18:22 2 General Appearance: No Apparent Distress, Obese Respiratory: Lungs Clear, Normal Breath Sounds, No Respiratory Distress Cardiovascular: Regular Rate, Rhythm, No Murmur Gastrointestinal: Normal Bowel Sounds, Non Tender, Soft Extremity: Normal Inspection, Non Tender Skin: Normal Color, Warm/Dry Neurologic/Psychiatric: Alert, Normal Mood/Affect Allergies: Coded Allergies: Penicillins (Unverified Allergy, Mild, HIVES, 11/16/19) duloxetine HCl (Verified Allergy, Mild, 11/16/19) Copy Copies To 1: VERENA LANCE MD Discharge Summary Date of Admission Feb 24, 2021 at 17:14 Date of Discharge Discharge Date: Feb 28, 2021 Discharge Time: 13:23 Admission Diagnosis ESBL E coli UTI Discharge Diagnosis (1) UTI due to extended-spectrum beta lactamase (ESBL) producing Escherichia coli Status: Acute (2) Acute kidney injury Status: Acute (3) Generalized weakness Status: Acute (4) Urinary tract infection Status: Acute Qualifiers: Qualified Codes: N39.0 - Urinary tract infection, site not specified (5) Weakness generalized Status: Acute (6) Hypertension Status: Chronic (7) COPD (chronic obstructive pulmonary disease) Status: Acute SAMI LAM MD Feb 28, 2021 13:25
[2021-02-28] MEDS ORDERED: ERTAPENEM 1 GM/NS 50 ML IVPB IV NR ×2 (14:00)
--- NOTE | 2021-02-28 14:46 | Physical Therapy Progress Note ---
Therapy Progress Note PT checked on pt approx 1430, pt and RN states pt will be DC shortly. BRIDGETT VILLAFU[employer]TE [employer] Feb 28, 2021 14:46
[2021-02-28 14:56] VITALS: BP 151/84
--- NOTE | 2021-02-28 18:12 | Physician Query Clarification ---
Physician Query-General Query to Physician: The medical record reflects the following clinical scenario: The patient, in the setting of History/Risk factors, "He has an indwelling brady catheter and had been treated for UTIs already twice this month", neurogenic bladder Clinical Findings "chronic Brady catheter in place" per nursing admission asses sment, Large amount bacteria on UA, Treatment Normal saline 1 L meropenem IV, catheter care Question: Can you specify if the Urinary Tract Infection (UTI) is due to/associated with indwelling Brady catheter? 1. Yes - UTI is due to/associated with indwelling Brady catheter 2. No - UTI is not due to/associated with indwelling Brady catheter 3. Other, with explanation of the clinical findings 4. Clinically undetermined, no explanation for the clinical findings Please clarify and document your clinical opinion in the Progress Notes and Discharge Summary including the definitive and/or presumptive diagnosis, (suspected or probable), related to the above clinical findings. Please include clinical findings supporting your diagnosis. In responding to this query, please exercise your independent professional judgment. The purpose of this communication is to more accurately reflect the c omplexity of your patients condition. The fact that a question is asked does not imply that any particular answer is desired or expected. Please remember a lack of response to the above will prompt a phone page by CDI/coding staff Thank you for timely response to this clarification. Madelyn Quinn MSN, RN Clinical Hotel Controller [phone] [email or web address] PHYSICIAN RESPONSE: Based on the clinical findings in the record, please respond to the query above on this document as an addendum. Physician Response: Physician Response 1 If you have questions please contact: Electrophysiology Technician: Ext: Thank you for your time and cooperation. Clinical Hotel Controller/Electrophysiology Technician This is a permanent part of the medical record MADELYN QUINN Feb 28, 2021 18:12 LUPE ALVES MD Mar 02, 2021 13:42
--- NOTE | 2021-03-02 06:52 | Physician Query Clarification ---
PQ-Link Infection to Dev/Proc Admission/Discharge Admission Date: Feb 24, 2021 at 17:14 Discharge Date: Feb 28, 2021 at 14:50 LUPE Frenandez MD The medical record reflects the following clinical scenario: History/Risk Factors: 75 y/o male patient admitted for UTI, patient has an indwelling brady catheter and had been treated for UTIs already twice this month", neurogenic bladder. Clinical Findings: Chronic brady catheter in place per nursing admission assessment, large amount bacteria on UA Treatment: Normal saline 1 L meropenem IV, catheter care. Question: Can you specify if the UTI is due to/associated with brady catheter? Please document a response in Progress Note or Discharge Summary. 1. Yes - UTI is due to/associated with brady catheter. 2. No - UTI is not due to/associated with brady catheter. 3. Other, with explanation of the clinical findings. 4. Clinically undetermined, no explanation for the clinical findings. PHYSICIAN RESPONSE Specify if infection: 1 Please remember a lack of response to the above will prompt a phone page by CDI/Coding staff. In responding to this query, please exercise your independent professional judgment. The purpose of this communication is to more accurately reflect the complexity of your patients condition. The fact that a question is asked does not imply that any particular answer is desired or expected. Thank you for your timely response to this clarification. Requestors name: [ ] Phone # [ ] THIS PHYSICIAN QUERY FORM IS A PERMANENT PART OF THE MEDICAL RECORD RADHA BENTON Mar 02, 2021 06:52 LUPE ALVES MD Mar 02, 2021 13:43
== END 2021-02-28 14:50 | disposition home or self-care (01) | DRG 698 ==
LOC: EDUNIT# 12:51 → ER 12:53 → 4TH 17:14
PROVIDERS: ADMIT Family Medicine; ATTEND Family Medicine
DX: T83.518A Infection and inflammatory reaction due to other urinary catheter, initial encounter (principal); G93.41 Metabolic encephalopathy; N39.0 Urinary tract infection, site not specified; N17.9 Acute kidney failure, unspecified; B96.20 Unspecified Escherichia coli [E. coli] as the cause of diseases classified elsewhere; Z79.82 Long term (current) use of aspirin; Z79.4 Long term (current) use of insulin; Z79.899 Other long term (current) drug therapy; F32.9 Major depressive disorder, single episode, unspecified; I12.9 Hypertensive chronic kidney disease with stage 1 through stage 4 chronic kidney disease, or unspecified chronic kidney disease; K21.9 Gastro-esophageal reflux disease without esophagitis; J44.9 Chronic obstructive pulmonary disease, unspecified; E78.00 Pure hypercholesterolemia, unspecified; Z95.5 Presence of coronary angioplasty implant and graft; I25.10 Atherosclerotic heart disease of native coronary artery without angina pectoris; E11.40 Type 2 diabetes mellitus with diabetic neuropathy, unspecified; N40.0 Benign prostatic hyperplasia without lower urinary tract symptoms; M19.90 Unspecified osteoarthritis, unspecified site; G89.29 Other chronic pain; M54.9 Dorsalgia, unspecified; F41.9 Anxiety disorder, unspecified; Z88.0 Allergy status to penicillin; Z87.891 Personal history of nicotine dependence; N18.31 Chronic kidney disease, stage 3a; E11.22 Type 2 diabetes mellitus with diabetic chronic kidney disease; Z86.73 Personal history of transient ischemic attack (TIA), and cerebral infarction without residual deficits
CPT/HCPCS: 36410; 36415; 76937; 80048; 80053; 81000; 82947; 83735; 85025; 85027; 86141; 87077; 87088; 87186; 94640; 94760; 96374

== ENCOUNTER 2021-03-04 09:18 | Outpatient (RCR) | payer MEDICARE, MEDICAID ==
[2021-03-01] MEDS: ERTAPENEM 1 GM/NS 50 ML IVPB IV SCH ×2 (11:05)
[2021-03-01 11:22] VITALS: BP 150/80
[2021-03-02] MEDS: ERTAPENEM 1 GM/NS 50 ML IVPB IV SCH ×2 (11:29)
[2021-03-02 11:33] VITALS: BP 145/72
[2021-03-03] MEDS: ERTAPENEM 1 GM/NS 50 ML IVPB IV SCH ×2 (10:46)
[2021-03-03 11:20] VITALS: BP 130/75
[~2021-03-04] VITALS: Wt 109.8 kg
[~2021-03-04 09:18] MED LIST changes: +ACET-2267 PO; +ALB0.5V NEB; +ALBU2.5V4 NEB; +BENZ100C18 PO; -BETH25TA PO; +BETH25TA2 PO; +CHOL4PAC2 PO; +DEXT1LOZ PO; +ERTA1VIA4 IV; +FLUT1AER PO; +GUAI-977 PO; +LOPE-175 PO; +MONT-40 PO
[2021-03-04 10:31] VITALS: BP 85/55
== END 2021-05-06 | disposition home or self-care (01) ==
LOC: SDC 09:18
PROVIDERS: ATTEND Internal Medicine
DX: T83.518A Infection and inflammatory reaction due to other urinary catheter, initial encounter (principal); N39.0 Urinary tract infection, site not specified; Z16.12 Extended spectrum beta lactamase (ESBL) resistance
CPT/HCPCS: 96365

== ENCOUNTER 2021-04-28 09:57 | Emergency (ER) | payer MEDICARE, MEDICAID ==
[~2021-04-28] VITALS: Ht 175.3 cm; Wt 90.7 kg
--- NOTE | 2021-04-28 10:09 | ED Fall/Injury ---
General Chief Complaint: Trauma-Non Activation Stated Complaint: FALL Source: patient, EMS History of Present Illness Date Seen by Provider: Apr 28, 2021 Time Seen by Provider: 09:59 Initial Comments PT ARRIVES VIA [facility]-NO IMMOBILIZATION PT WAS GETTING OUT OF BED, AND TRYING TO GET INTO WHEELCHAIR AND WHEELCHAIR MOVED AND HE FELL, LANDING ON HIS BACK AND HITTING THE BACK OF HIS HEAD--ON CARPETED FLOOR WAS NOT WITNESSED PT DENIES LOSS OF CONSCIOUSNESS PT WAS STILL ON FLOOR WHEN EMS ARRIVED PT C/O PAIN TO HIS ENTIRE HEAD C/O PAIN TO HIS BACK, BUT UNABLE TO LOCALIZE BACK PAIN NO PARESTHESIAS OR MOTOR DEFICITS DENIES NECK PAIN NO VISION CHANGES NO NAUSEA/VOMITING NO DIZZINESS NO HIP OR LEG PAIN, OR ARM PAIN NO CHEST PAIN OR ABDOMINAL PAIN NO CHANGE IN MENTATION PT IS ON 81 MG ASPIRIN, BUT NO OTHER ANTICOAGULANTS PCP: DR. LANCE Allergies and Home Medications Allergies Coded Allergies: Penicillins (Unverified Allergy, Mild, HIVES, 11/16/19) duloxetine HCl (Verified Allergy, Mild, 11/16/19) Patient Home Medication List Home Medication List Reviewed: Yes Acetaminophen (Tylenol) 325 Mg Tablet, 650 MG PO Q4H PRN for PAIN/TEMP, (Reported) Entered as Reported by: TRISH GRANDE on 07/25/16 09 Acetaminophen (Tylenol Extra Strength) 500 Mg Tablet, 500 MG PO Q4H PRN for PAIN-MILD (1-4), (Reported) Entered as Reported by: CHEIKH AMARAL on 02/25/21922 Albuterol Sulfate (Albuterol Sulfate) 2.5 Mg/3 Ml Vial.neb, 3 ML NEB EVERY 2 HOURS PRN for SHORTNESS OF BREATH, (Reported) Entered as Reported by: CHEIKH AMARAL on 02/25/21922 Albuterol Sulfate (Albuterol Sulfate) 2.5 Mg/0.5 Ml Vial.neb, 3 ML NEB Q4H, (Reported) Entered as Reported by: CHEIKH AMARAL on 02/25/21922 Albuterol Sulfate (Proair Hfa) 1 Puff Puff, 2 PUFF IH QID PRN for SHORTNESS OF BREATH, (Reported) Entered as Reported by: CHEIKH AMARAL on 02/25/21922 Ascorbic Acid (Ascorbic Acid) 500 Mg Tablet, 1,500 MG PO DAILY, (Reported) Entered as Reported by: CHEIKH AMARAL on 04/29/19 1323 Aspirin (Aspirin EC) 81 Mg Tablet.dr, 81 MG PO DAILY, (Reported) Entered as Reported by: CHEIKH AMARAL on 02/25/21 09 Benzonatate (Tessalon Perles) 100 Mg Capsule, 200 MG PO TID PRN for COUGH, (Reported) Entered as Reported by: CHEIKH AMARAL on 02/25/21 09 Bethanechol Chloride (Bethanechol Chloride) 50 Mg Tablet, 50 MG PO WITH MEALS & BEDTIME, (Reported) Entered as Reported by: CHEIKH AMARAL on 12/30/20 1505 Bupropion HCl (Wellbutrin Xl) 300 Mg Tab.er.24h, 300 MG PO DAILY, (Reported) Entered as Reported by: LLOYD HOOKER on 10/24/16 1517 Cholestyramine (with Sugar) (Cholestyramine Packet) 4 Gm Powd.pack, 1 PACKET PO Q8H PRN for DIARRHEA, (Reported) Entered as Reported by: CHEIKH AMARAL on 02/25/21 09 Citalopram Hydrobromide (Citalopram HBr) 20 Mg Tablet, 20 MG PO DAILY, (Report ed) Entered as Reported by: WESTON DYSON on 05/31/15 1528 Cranberry Fruit (Cranberry) 450 Mg Tablet, 450 MG PO BID, (Reported) Entered as Reported by: JUAN TOLLIVER on 11/17/19 1322 Dextromethorphan HBr/B-Sergio (Cepacol Sorethroat-Cough Jeyson) 1 Each Lozenge, 1 EACH PO EVERY 2 HOURS PRN for COUGH, (Reported) Entered as Reported by: CHEIKH AMARAL on 02/25/21 09 Docusate Sodium (Docusate Sodium) 100 Mg Capsule, 100 MG PO BID, (Reported) Entered as Reported by: WESTON DYSON on 05/31/15 1535 Ertapenem Sodium (Ertapenem) 1 Gm Vial, 1 GM IV DAILY Prescribed by: SAMI LAM on 02/28/21 1228 Fluticasone/Vilanterol (Breo Ellipta 100-25 Mcg INH) 1 Each Blst.w.dev, 1 EA PO DAILY, (Reported) Entered as Reported by: CHEIKH AMARAL on 02/25/21922 Furosemide (Furosemide) 20 Mg Tablet, 20 MG PO DAILY, (Reported) Entered as Reported by: ANGI SKINNER on 06/06/17 0724 Guaifenesin (Mucus Relief) 600 Mg Tab.er.12h, 600 MG PO QID PRN for DRAINAGE, (Reported) Entered as Reported by: CHEIKH AMARAL on 02/25/21922 Hydrocodone/Acetaminophen (Hydrocodone-Acetamin 5-325 mg) 1 Each Tablet, 0.5-1 EACH PO Q6H PRN for PAIN-MODERATE (5-7), (Reported) Entered as Reported by: MARGY BONDS on 11/17/19 0051 Insulin Aspart (Novolog Flexpen) 300 Units/3 Ml Solution, UNITS SQ TIDAC, (Reported) Entered as Reported by: CHEIKH AMARAL on 04/29/19 1340 Insulin Glargine,Hum.rec.anlog (Lantus Solostar) 100 Unit/1 Ml Insuln.pen, 48 UNITS SQ HS, (Reported) Entered as Reported by: WESTON DYSON on 05/31/15 1528 Isosorbide Mononitrate (Isosorbide Mononitrate ER) 30 Mg Tab.er.24h, 30 MG PO 1999, (Reported) Entered as Reported by: CHEIKH AMARAL on 02/25/21922 Loperamide HCl (Imodium A-D) 2 Mg Capsule, 2 MG PO UD PRN for LOOSE STOOLS, (Reported) Entered as Reported by: CHEIKH AMARAL on 02/25/21922 Losartan Potassium (Losartan Potassium) 50 Mg Tablet, 50 MG PO DAILY, (Reported) Entered as Reported by: CHEIKH AMARAL on 12/30/20 1505 Metoprolol Tartrate (Metoprolol Tartrate) 50 Mg Tablet, 50 MG PO BID, (Reported) Entered as Reported by: JUAN TOLLIVER on 11/17/19 1322 Montelukast Sodium (Montelukast Sodium) 10 Mg Tablet, 10 MG PO DAILY, (Reported) Entered as Reported by: CHEIKH AMARAL on 02/25/21922 Nystatin (Nystatin) 15 Gm Cream..g., 1 APPLIC TP 0800,1400,2000, (Reported) Entered as Reported by: CHEIKH AMARAL on 04/29/19 1323 Ondansetron (Ondansetron Odt) 4 Mg Tab.rapdis, 4 MG PO Q4H PRN for NAUSEA/VOMITING-1ST LINE, (Reported) Entered as Reported by: CHEIKH AMARAL on 02/25/21 0923 Pantoprazole Sodium (Pantoprazole Sodium) 40 Mg Tablet.dr, 40 MG PO DAILY, (Reported) Entered as Reported by: WESTON DYSON on 05/31/15 1528 Potassium Chloride (Potassium Chloride) 20 Meq Tablet.er, 20 MEQ PO DAILY, (Reported) Entered as Reported by: CHEIKH AMARAL on 04/29/19 1323 Risperidone (Risperidone) 2 Mg Tablet, 2 MG PO BID, (Reported) Entered as Reported by: WESTON DYSON on 03/22/16 1336 Simvastatin (Zocor) 10 Mg Tablet, 10 MG PO HS, (Reported) Entered as Reported by: LLOYD HOOKER on 10/24/16 1517 Tiotropium [place] (Spiriva Respimat 2.5MCG/ACTUATION) 4 Gm Mist.inhal, 2 PUFF IH DAILY, (Reported) Entered as Reported by: CHEIKH AMARAL on 04/29/19 1323 Trazodone HCl (Trazodone HCl) 150 Mg Tablet, 150 MG PO HS, (Reported) Entered as Reported by: WESTON DYSON on 03/22/16 1336 Review of Systems Review of Systems Constitutional: no symptoms reported Eyes: No Symptoms Reported Ears, Nose, Mouth, Throat: no symptoms reported Respiratory: no symptoms reported Cardiovascular: no symptoms reported Gastrointestinal: no symptoms reported Genitourinary: no symptoms reported Skin: no symptoms reported Psychiatric/Neurological: See HPI, Headache; Denies Numbness, Denies Paresthesia, Denies Seizure, Denies Tingling, Denies Tremors, Denies Weakness Past Rvbskuw-Fpmnid-Cvrfyz Hx Immunizations Up To Date First/Initial COVID19 Vaccinat: 2020 Second COVID19 Vaccination Evangelista: 2020 Third COVID19 Vaccination Date: none Seasonal Allergies Seasonal Allergies: No Past Medical History Surgery/Hospitalization HX: pmh: depression, htn, gerd, edema, diabetic, copd, high cholesterol Surgeries: Yes (CARDIAC CATH 05/2017--PATENT STENT, NON-OCCLUSIIVE CAD--NO INTERVENTION) Cardiac, Coronary Stent, Eye Surgery, Transurethral Resection Respiratory: Yes (HX OF SEPSIS, O2 AT 3 L/NC CONTINUOUSLY; CHRONIC COUGH) Pneumonia, Chronic Bronchitis, Sleep Apnea, COPD Currently Using CPAP: Yes Cardiac: Yes (RBBB, LAFB; CARDIAC CATHS--STENT X 1) Chronic Edema/Swelling, Coronary Artery Disease, High Cholesterol, Hypertension Neurological: Yes Dementia, Neuropathy Reproductive Disorders: No Sexually Transmitted Disease: No HIV/AIDS: No Genitourinary: Yes (INDWELLING ESCALANTE, CHRONIC BILATERAL HYDRONEPHROSIS) Benign Prostatic Hyperpl, Prostate Problems, Neurogenic Bladder, UTI-Chronic Gastrointestinal: Yes Gastroesophageal Reflux, Chronic Constipation Musculoskeletal: Yes Arthritis, Chronic Back Pain Endocrine: Yes (THYROID NODULE) Diabetes, Insulin dep HEENT: Yes (ANGIOEDEMA OF TONGUE) Cataract Hearing Impairment: Hard of Hearing Cancer: No Psychosocial: Yes Sleep Difficulties, Anxiety, Depression Integumentary: No Blood Disorders: No Adverse Reaction/Blood Tranf: No Family Medical History Family history: Hypertension 03 FATHER Stroke 03 MOTHER No Pertinent Family Hx PSH: -CATARACT SURGERY -TURP 10/31/[address] LAROSE -CARDIAC CATHS--STENT X 1--LAST CATH 05/2017--PATENT STENT, NON-OCCLUSIVE CAD, NO INTERVENTION -CHOLECYSTETCOMY Physical Exam Vital Signs Vital Signs - First Documented 04/28/21 09:58 Temp 35.6 Pulse 70 Resp 16 B/P (MAP) 164/92 (116) Pulse Ox 97 O2 Delivery Room Air O2 Flow Rate 4.00 Capillary Refill : Height, Weight, BMI Height: 5'9.00" Weight: 260lbs. 0.0oz. [id number]; 34.89 BMI Method:Stated General Appearance: WD/WN, no apparent distress, obese HEENT: PERRL/EOMI, other (NO EXTERNAL EVIDENCE OF TRAUMA TO HEAD AND NO TENDER NESS TO HEAD) Neck: non-tender, full range of motion, supple, normal inspection Cardiovascular: regular rate, rhythm, no murmur Respiratory: chest non-tender, normal breath sounds, no respiratory distress, no accessory muscle use Gastrointestinal: non tender, soft Back: normal inspection, no CVA tenderness, no vertebral tenderness Extremities: normal range of motion, non-tender, normal inspection, normal capillary refill, other (TRACE EDEMA BILATERALLY--WEARING COMRESSION STOCKINGS) Neurologic/Psychiatric: molded goods spot picker II-XII nml as tested, no motor/sensory deficits, alert, normal mood/affect, oriented x 3 Skin: normal color, warm/dry, other (NO EXTERNAL EVIDENCE OF TRAUMA ANYWHERE) Vashti Coma Score Best Eye Response: (4) Open Spontaneously Best Verbal Response: (5) Oriented Best Motor Response: (6) Obeys Commands Vashti Total: 15 Progress/Results/Core Measures Results/Orders My Orders Orders - AMANDA WOODSON DO Ct Head/Cervical Spine Wo (04/28/21 10:03) Pelvis (04/28/21 10:03) Ct Thoracic/Lumbar Spine Wo (04/28/21 10:03) Vital Signs/I&O 04/28/21 04/28/21 09:58 11:29 Temp 35.6 Pulse 70 68 Resp 16 17 B/P (MAP) 164/92 (116) 169/88 Pulse Ox 97 96 O2 Delivery Room Air Nasal Cannula O2 Flow Rate 4.00 4.00 Progress Progress Note : Progress Note UNEVENTFUL ER STAY Diagnostic Imaging Comments PER RADIOLOGIST REPORTS AT 1111 PELVIS XRAY-- Single view the pelvis was obtained. Femoral acetabular alignment is normal. There are degenerative changes of both hips. Both femoral heads and necks appear to be intact. Rami are intact. SI joints and symphysis are not widened. No fractures are seen. IMPRESSION: No acute abnormalities detected. CT HEAD/CERVICAL SPINE- Findings: Head CT: There is no evidence of acute cerebral infarct, intracranial hemorrhage, or gross mass effect. There is diffuse brain parenchymal volume loss. Again seen diffuse patchy and confluent areas of low-attenuation white matter changes seen throughout both cerebral hemispheres and periventricular regions, likely representing chronic small vessel ischemic disease. There is normal claire-white matter distinction. There is no significant midline shift or herniation. There is no evidence of hydrocephalus. The basal cisterns are unremarkable. The skull, extracranial soft tissue, and orbits are unremarkable. The paranasal sinuses are unremarkable. Temporal bones show no significant abnormality. Cervical spine: There is limited visualization of the C6 through upper thoracic spine due to patient body habitus and streak artifact. There is no acute cervical spine fracture or dislocation, as visualized. There is cervical spine degenerative disease. There is no significant neck soft tissue abnormality. Visualized upper lung ford are clear. Impression: 1: There is no evidence of acute intracranial process. There is no skull fracture. 2: There is limited visualization of the cervical spine. There is no gross acute cervical spine fracture or dislocation. CT THORACIC/LUMBAR SPINE- CT thoracolumbar spine performed with sagittal and coronal reconstructions. Lumbar CT compared 10/05/2020. Thoracic CT correlated with chest CT of 02/12/2019. C-spine: Thoracic vertebral statures within normal limits. The alignment anatomic. No facet dislocation. No listhesis. No paraspinal hemorrhage. Osteophyte disc material predominantly directed anteriorly. No acute or posttraumatic sequelae. The visualized posterior ribs segments, lung and pleura were seen appeared nonacute. Stable trace grade 1 degenerative retrolisthesis L2 on L3 and L3 on L4 stable. No facet joint dislocation. Pedicles and pars intact. Lumbar statures stable and within normal limits. There are advanced degenerative changes to the discs, endplates and facets throughout the lumbar spine chronic and resulting as unchanged multilevel canal and foraminal stenoses most notably L2-L3, L3-L4, L4-L5 and L5-S1. No paraspinal hemorrhage. No fracture. The visualized sacrum nonacute. The SI joints showed no diastases. No paraspinal hemorrhage. IMPRESSION: Stable chronic lumbar greater than thoracic spondylosis. No fracture or traumatic malalignment. No change from correlative exams. Reviewed: Reviewed by Me Departure Impression Primary Impression: Fall from standing Additional Impressions: Closed head injury without loss of consciousness Neck strain Back strain Disposition: 03 [facility] Condition: Stable Departure-Patient Inst. Decision time for Depature: 11:12 Referrals: VERENA LANCE MD (PCP/Family) Primary Care Physician Patient Instructions: Back Muscle Strain (DC), Cervical Muscle Strain (DC), Closed Head Injury (DC), Preventing Falls in the Older Adult Add. Discharge Instructions: TYLENOL NEEDED FOR PAIN CONTINUE YOUR REGULAR MEDICATIONS PRESCRIBED FOLLOW UP WITH YOUR DR NEXT WEEK IF NO BETTER, RETURN TO ER IF WORSE All discharge instructions reviewed with patient and/or family. Voiced understanding. AMANDA WOODSON DO Apr 28, 2021 10:09
--- NOTE | 2021-04-28 10:38 | Diagnostic Imaging Report ---
INDICATION: Fall. TIME OF EXAM: 10:34 AM Single view the pelvis was obtained. Femoral acetabular alignment is normal. There are degenerative changes of both hips. Both femoral heads and necks appear to be intact. Rami are intact. SI joints and symphysis are not widened. No fractures are seen. IMPRESSION: No acute abnormalities detected. Dictated by: Dictated on workstation # [id number]
--- NOTE | 2021-04-28 11:04 | Diagnostic Imaging Report ---
Clinical indication: Patient complains of posterior head pain after fall. Exam: Head CT without IV contrast with sagittal and coronal reformations. Axial CT scan of the cervical spine with sagittal and coronal reformations. Auto Exposure Controls were utilized during the CT exam to meet ALARA standards for radiation dose reduction. Comparison: CT scan of the head and cervical spine without contrast dated 10/05/2020. Findings: Head CT: There is no evidence of acute cerebral infarct, intracranial hemorrhage, or gross mass effect. There is diffuse brain parenchymal volume loss. Again seen diffuse patchy and confluent areas of low-attenuation white matter changes seen throughout both cerebral hemispheres and periventricular regions, likely representing chronic small vessel ischemic disease. There is normal claire-white matter distinction. There is no significant midline shift or herniation. There is no evidence of hydrocephalus. The basal cisterns are unremarkable. The skull, extracranial soft tissue, and orbits are unremarkable. The paranasal sinuses are unremarkable. Temporal bones show no significant abnormality. Cervical spine: There is limited visualization of the C6 through upper thoracic spine due to patient body habitus and streak artifact. There is no acute cervical spine fracture or dislocation, as visualized. There is cervical spine degenerative disease. There is no significant neck soft tissue abnormality. Visualized upper lung ford are clear. Impression: 1: There is no evidence of acute intracranial process. There is no skull fracture. 2: There is limited visualization of the cervical spine. There is no gross acute cervical spine fracture or dislocation. Dictated by: Dictated on workstation # [id number]
--- NOTE | 2021-04-28 11:09 | Diagnostic Imaging Report ---
PROCEDURE: CT thoracic and lumbar spine without contrast. TECHNIQUE: Multiple contiguous axial images were obtained through the thoracic and lumbar spine without the use of intravenous contrast. Sagittal and coronal reformations were then performed. All CT scans use one or more of the following dose optimizing techniques: automated exposure control, MA and/or KvP adjustment based on a patient size and exam type, or iterative reconstruction. INDICATION: Fall with spinal pain. CT thoracolumbar spine performed with sagittal and coronal reconstructions. Lumbar CT compared 10/05/2020. Thoracic CT correlated with chest CT of 02/12/2019. C-spine: Thoracic vertebral statures within normal limits. The alignment anatomic. No facet dislocation. No listhesis. No paraspinal hemorrhage. Osteophyte disc material predominantly directed anteriorly. No acute or posttraumatic sequelae. The visualized posterior ribs segments, lung and pleura were seen appeared nonacute. Stable trace grade 1 degenerative retrolisthesis L2 on L3 and L3 on L4 stable. No facet joint dislocation. Pedicles and pars intact. Lumbar statures stable and within normal limits. There are advanced degenerative changes to the discs, endplates and facets throughout the lumbar spine chronic and resulting as unchanged multilevel canal and foraminal stenoses most notably L2-L3, L3-L4, L4-L5 and L5-S1. No paraspinal hemorrhage. No fracture. The visualized sacrum nonacute. The SI joints showed no diastases. No paraspinal hemorrhage. IMPRESSION: Stable chronic lumbar greater than thoracic spondylosis. No fracture or traumatic malalignment. No change from correlative exams. Dictated by: Dictated on workstation # [id number]
[2021-04-28 11:29] VITALS: BP 169/88
== END 2021-04-28 11:41 ==
LOC: EDUNIT# 09:57 → ER 09:58
DX: S16.1XXA Strain of muscle, fascia and tendon at neck level, initial encounter (principal); S09.90XA Unspecified injury of head, initial encounter; G47.30 Sleep apnea, unspecified; J44.9 Chronic obstructive pulmonary disease, unspecified; I10 Essential (primary) hypertension; E78.00 Pure hypercholesterolemia, unspecified; I25.10 Atherosclerotic heart disease of native coronary artery without angina pectoris; E66.9 Obesity, unspecified; F32.9 Major depressive disorder, single episode, unspecified; F03.90 Unspecified dementia, unspecified severity, without behavioral disturbance, psychotic disturbance, mood disturbance, and anxiety; K21.9 Gastro-esophageal reflux disease without esophagitis; F41.9 Anxiety disorder, unspecified; G89.29 Other chronic pain; M54.9 Dorsalgia, unspecified; Z68.34 Body mass index [BMI] 34.0-34.9, adult; E11.9 Type 2 diabetes mellitus without complications; Z79.4 Long term (current) use of insulin; Z79.82 Long term (current) use of aspirin; Z79.899 Other long term (current) drug therapy; Z79.891 Long term (current) use of opiate analgesic; W22.8XXA Striking against or struck by other objects, initial encounter
CPT/HCPCS: 70450; 72125; 72128; 72131; 72170

== ENCOUNTER → 2021-10-02 | Outpatient (CLI) | payer MEDICARE, MEDICAID ==
[~2021-10-02] MED LIST changes: +CHOL4PAC14 PO; -CHOL4PAC2 PO; +FLUC100T10 PO; -FLUC100T6 PO
[2021-10-02 12:53] LABS: BILIRUBIN,URINE NEGATIVE (NEGATIVE); CLARITY,URINE TURBID; COLOR,URINE YELLOW; GLUCOSE, URINE (UA) NEGATIVE (NEGATIVE); KETONES,URINE NEGATIVE (NEGATIVE); LEUKOCYTE ESTERASE ,URINE 3+ (NEGATIVE); NITRITE,URINE NEGATIVE (NEGATIVE); PROTEIN,URINE 2+ (NEGATIVE)
[2021-10-02 12:57] LABS: BACTERIA,URINE MODERATE /HPF; RBC,URINE RARE /HPF; WBC,URINE TNTC /HPF
== END ==
LOC: LABNPT 12:48
PROVIDERS: ATTEND Physician Assistant
DX: N39.0 Urinary tract infection, site not specified (principal); N19 Unspecified kidney failure
CPT/HCPCS: 81000; 87077; 87088; 87186

== ENCOUNTER 2021-10-21 08:18 | Inpatient (IN) | payer MEDICARE, MEDICAID ==
[~2021-10-21] VITALS: Ht 175 cm; Wt 109.6 kg
[2021-10-21] MEDS ORDERED: DEXTROSE 50% 50 ML (IMS) SYR ONE (08:35)
[2021-10-21 08:44] LABS: BASOPHILS % (AUTO) 0 % (0-10); EOSINOPHILS # (AUTO) 0.1 10^3/uL (0.0-0.3); EOSINOPHILS % (AUTO) 2 % (0-10); HEMATOCRIT 42 % (40-54); HEMOGLOBIN 13.3 g/dL (13.3-17.7); LYMPHOCYTES # (AUTO) 1.9 10^3/uL (1.0-4.0); LYMPHOCYTES % (AUTO) 24 % (12-44); MEAN CORPUSCULAR HEMOGLOBIN 29 pg (25-34); MEAN CORPUSCULAR HGB CONC 32 g/dL (32-36); MEAN CORPUSCULAR VOLUME 93 fL (80-99); MEAN PLATELET VOLUME 10.3 fL (9.0-12.2); MONOCYTES # (AUTO) 0.7 10^3/uL (0.0-1.0); MONOCYTES % (AUTO) 9 % (0-12); NEUTROPHILS % (AUTO) 64 % (42-75); PLATELET COUNT 188 10^3/uL (130-400); WHITE BLOOD COUNT 7.8 10^3/uL (4.3-11.0)
[2021-10-21 08:55] LABS: ALBUMIN 3.2 GM/DL (3.2-4.5); POTASSIUM 4.2 MMOL/L (3.6-5.0)
[2021-10-21 08:56] LABS: CALCIUM 8.7 MG/DL (8.5-10.1)
[2021-10-21 08:58] LABS: TOTAL PROTEIN 6.5 GM/DL (6.4-8.2)
[2021-10-21 08:59] LABS: BILIRUBIN,TOTAL 0.7 MG/DL (0.1-1.0)
[2021-10-21] MEDS ORDERED: RT-ALBUTEROL/IPRATROPIUM 3 ML (DUONEB) VIAL INH ONE (09:00)
[2021-10-21 09:01] LABS: CREATININE SERUM 2.16 MG/DL (0.60-1.30)
--- NOTE | 2021-10-21 09:39 | Diagnostic Imaging Report ---
INDICATION: Dyspnea. Portable AP view of the chest is obtained with comparison made study of 12/30/2020 FINDINGS: Heart size and pulmonary vascularity are at the upper limits of normal. There is background air trapping. No pneumothorax or consolidation is identified. There is no significant pleural fluid. IMPRESSION: Borderline cardiomegaly with background emphysema and probable COPD. No definite acute abnormality is identified. Dictated by: Dictated on workstation # [id number]
--- NOTE | 2021-10-21 09:40 | Diagnostic Imaging Report ---
HISTORY: Abdominal pain, bowel obstruction. COMPARISON: CT from 03/21/2019 TECHNIQUE: Frontal views of the abdomen. FINDINGS: There are some mildly prominent gas-filled loops of small bowel but no high-grade distention is seen. Gas is noted in the stomach and colon. No large collection of free air is seen. Cholecystectomy clips are noted. There are advanced degenerative changes in the lumbar spine. IMPRESSION: 1. Nonspecific bowel gas pattern with no high-grade distention seen. Dictated by: Dictated on workstation # [id number]
[2021-10-21 09:43] LABS: BILIRUBIN,URINE NEGATIVE (NEGATIVE); CLARITY,URINE CLEAR; COLOR,URINE YELLOW; GLUCOSE, URINE (UA) NEGATIVE (NEGATIVE); KETONES,URINE NEGATIVE (NEGATIVE); LEUKOCYTE ESTERASE ,URINE 2+ (NEGATIVE); NITRITE,URINE NEGATIVE (NEGATIVE); PROTEIN,URINE 1+ (NEGATIVE)
[2021-10-21 10:01] LABS: BACTERIA,URINE LARGE /HPF; WBC,URINE 50-100 /HPF; YEAST,URINE FEW /HPF
[2021-10-21] MEDS ORDERED: MEROPENEM 1,000 MG in NS (IVPB) 100 ML IV ONE (10:30)
[2021-10-21 10:40] LABS: INR 1.1 (0.8-1.4); PROTHROMBIN TIME PATIENT 14.3 SEC (12.2-14.7)
--- NOTE | 2021-10-21 10:59 | ED General ---
General Chief Complaint: General Problems/Pain Stated Complaint: POSS BOWEL OBSTRUCTION Nursing Triage Note: PT TO ED FROM [facility] BY EMS. [facility] NURSE REPORTS PT INCREASED AMS AND TREMORS TODAY AND SHE BELIEVES PT HAS POSSIBLE BOWEL OBSTRUCTION AND SEPSIS. SHE WAS UNSURE OF LBM. REPORTS PT HAD KUB YESTERDAY THAT SHOWED LARGE AMOUNT OF STOOL IN BOWEL. REPORTS PT WEARS 2 L O2 NORMALLY AND NORMAL MENTATION IS A&O X 1. DENIES FEVER, N/V/D. PT DENIES PAIN OR NAUSEA AT THIS TIME. Source of Information: Patient Exam Limitations: No Limitations History of Present Illness Date Seen by Provider: Oct 21, 2021 Time Seen by Provider: 08:19 Initial Comments This 76-year-old gentleman is brought to the emergency room via EMS from the [facility] with concerns about "shakiness, possible bowel obstruction, and possible sepsis". He reportedly had a KUB yesterday that showed a large amount of stool. He denies any abdominal pain or nausea. Cognition seems dulled but he does respond to questions. He states that he is feeling "not very good" but does not specify when asked. Blood sugar on arrival was 69. 25 g of D50 was administered. Patient is exhibiting some forced expiratory effort suggestive of obstructive process such as sleep apnea or COPD exacerbation. Allergies and Home Medications Allergies Coded Allergies: Penicillins (Unverified Allergy, Mild, HIVES, pt has rec Meropenem in the past, 10/21/21) duloxetine HCl (Verified Allergy, Mild, 11/16/19) Patient Home Medication List Home Medication List Reviewed: Yes Acetaminophen (Tylenol) 325 Mg Tablet, 650 MG PO Q4H PRN for PAIN/TEMP, (Reported) Entered as Reported by: TRISH GRANDE on 07/25/16 0901 Last Action: Reviewed Albuterol Sulfate (Albuterol Sulfate) 2.5 Mg/0.5 Ml Vial.neb, 3 ML NEB Q4H PRN for SHORTNESS OF BREATH, (Reported) Entered as Reported by: CHEIKH AMARAL on 02/25/21 0923 Last Action: Reviewed Amlodipine Besylate (Amlodipine Besylate) 5 Mg Tablet, 5 MG PO DAILY, (Reported) Entered as Reported by: CHEIKH AMARAL on 10/21/21 1550 Last Action: Reviewed Ascorbic Acid (Ascorbic Acid) 500 Mg Tablet, 1,500 MG PO DAILY, (Reported) Entered as Reported by: CHEIKH AMARAL on 04/29/19 1323 Last Action: Reviewed Benzonatate (Tessalon Perles) 100 Mg Capsule, 200 MG PO TID PRN for COUGH, (Reported) Entered as Reported by: CHEIKH AMARAL on 02/25/21922 Last Action: Reviewed Bethanechol Chloride (Bethanechol Chloride) 50 Mg Tablet, 50 MG PO QIDACHS, (Reported) Entered as Reported by: CHEIKH AMARAL on 12/30/201504 Last Action: Reviewed Bupropion HCl (Bupropion Xl) 150 Mg Tab.er.24h, 150 MG PO DAILY, (Reported) Entered as Reported by: CHEIKH AMARAL on 10/21/211549 Last Action: Reviewed Cholestyramine (with Sugar) (Cholestyramine Packet) 4 Gm Powd.pack, 1 PACKET PO DAILY PRN for DIARRHEA, (Reported) Entered as Reported by: CHEIKH AMARAL on 02/25/21922 Last Action: Reviewed Citalopram Hydrobromide (Citalopram HBr) 20 Mg Tablet, 20 MG PO DAILY, (Re ported) Entered as Reported by: WESTON DYSON on 05/31/15 1528 Last Action: Reviewed Dextromethorphan HBr/B-Sergio (Cepacol Sorethroat-Cough Jeyson) 5 Mg-7.5 Mg Lozenge, 1 EACH PO EVERY 2 HOURS PRN for COUGH, (Reported) Entered as Reported by: CHEIKH AMARAL on 10/21/211549 Last Action: Reviewed Docusate Sodium (Docusate Sodium) 100 Mg Capsule, 100 MG PO BID, (Reported) Entered as Reported by: WESTON DYSON on 05/31/151534 Last Action: Reviewed Famotidine (Acid Commercial [employer] (FAMOTIDINE)) 20 Mg Tablet, 20 MG PO BID, (Reported) Entered as Reported by: CHEIKH AMARAL on 10/21/211549 Last Action: Reviewed Fluticasone/Vilanterol (Breo Ellipta 100-25 Mcg INH) 1 Each Blst.w.dev, 1 EA PO DAILY, (Reported) Entered as Reported by: CHEIKH AMARAL on 02/25/21922 Last Action: Reviewed Furosemide (Furosemide) 20 Mg Tablet, 20 MG PO DAILY, (Reported) Entered as Reported by: ANGI SKINNER on 06/06/17 0724 Last Action: Reviewed Guaifenesin (Mucus Relief) 600 Mg Tab.er.12h, 600 MG PO QID PRN for DRAINAGE, (Reported) Entered as Reported by: CHEIKH AMARAL on 02/25/21922 Last Action: Reviewed Insulin Aspart (Novolog Flexpen) 300 Units/3 Ml Solution, UNITS SQ TIDAC, (Reported) Entered as Reported by: CHEIKH AMARAL on 04/29/19 1340 Last Action: Reviewed Insulin Glargine,Hum.rec.anlog (Lantus Solostar) 100 Unit/1 Ml Insuln.pen, 51 UNITS SQ HS, (Reported) Entered as Reported by: WESTON DYSON on 05/31/15 1528 Last Action: Reviewed Isosorbide Mononitrate (Isosorbide Mononitrate ER) 30 Mg Tab.er.24h, 30 MG PO DAILY, (Reported) Entered as Reported by: CHEIKH AMARAL on 02/25/21922 Last Action: Reviewed Loperamide HCl (Imodium A-D) 2 Mg Capsule, 2 MG PO UD PRN for LOOSE STOOLS, (Reported) Entered as Reported by: CHEIKH AMARAL on 02/25/21922 Last Action: Reviewed Losartan Potassium (Losartan Potassium) 50 Mg Tablet, 50 MG PO DAILY, (Reported) Entered as Reported by: CHEIKH AMARAL on 12/30/20 1505 Last Action: Reviewed Metoprolol Tartrate (Metoprolol Tartrate) 50 Mg Tablet, 50 MG PO BID, (Reported) Entered as Reported by: JUAN TOLLIVER on 11/17/19 1322 Last Action: Reviewed Montelukast Sodium (Montelukast Sodium) 10 Mg Tablet, 10 MG PO DAILY, (Reported) Entered as Reported by: CHEIKH AMARAL on 02/25/21922 Last Action: Reviewed Nystatin (Nystatin) 100,000 Unit/Gram Cream..g., 1 APPLIC TP TID, (Reported) Entered as Reported by: CHEIKH AMARAL on 10/21/21 1550 Last Action: Reviewed Ondansetron (Ondansetron Odt) 4 Mg Tab.rapdis, 4 MG PO Q4H PRN for NAUSEA/VOMITING-1ST LINE, (Reported) Entered as Reported by: CHEIKH AMARAL on 02/25/21922 Last Action: Reviewed Pantoprazole Sodium (Pantoprazole Sodium) 40 Mg Tablet.dr, 40 MG PO DAILY, (Reported) Entered as Reported by: WESTON DYSON on 05/31/15 1528 Last Action: Reviewed Polyethylene Glycol 3350 (Miralax) 17 Gram Powd.pack, 17 GM PO DAILY, (Reported) Entered as Reported by: CHEIKH AMARAL on 10/21/21 155 Last Action: Reviewed Potassium Chloride (Potassium Chloride) 20 Meq Tablet.er, 20 MEQ PO DAILY, (Reported) Entered as Reported by: CHEIKH AMARAL on 04/29/19 132 Last Action: Reviewed Risperidone (Risperidone) 2 Mg Tablet, 2 MG PO Q12H, (Reported) Entered as Reported by: WESTON DYSON on 03/22/16 133 Last Action: Reviewed Simvastatin (Zocor) 10 Mg Tablet, 10 MG PO HS, (Reported) Entered as Reported by: LLOYD HOOKER on 10/24/16 151 Last Action: Reviewed Tiotropium [place] (Spiriva Respimat 2.5MCG/ACTUATION) 4 Gm Mist.inhal, 2 PUFF IH DAILY, (Reported) Entered as Reported by: CHEIKH AMARAL on 04/29/19 132 Last Action: Reviewed Trazodone HCl (Trazodone HCl) 150 Mg Tablet, 150 MG PO HS, (Reported) Entered as Reported by: WESTON DYSON on 03/22/161335 Last Action: Reviewed Discontinued Medications Acetaminophen (Tylenol Extra Strength) 500 Mg Tablet, 500 MG PO Q4H PRN for PAIN-MILD (1-4), (Reported) Discontinued Reason: No Longer Taking Entered as Reported by: CHEIKH AMARAL on 02/25/21922 Last Action: Discontinued Albuterol Sulfate (Albuterol Sulfate) 2.5 Mg/3 Ml Vial.neb, 3 ML NEB EVERY 2 HOURS PRN for SHORTNESS OF BREATH, (Reported) Discontinued Reason: No Longer Taking Entered as Reported by: CHEIKH AMARAL on 02/25/21922 Last Action: Discontinued Albuterol Sulfate (Proair Hfa) 1 Puff Puff, 2 PUFF IH QID PRN for SHORTNESS OF BREATH, (Reported) Discontinued Reason: No Longer Taking Entered as Reported by: CHEIKH AMARAL on 02/25/21922 Last Action: Discontinued Aspirin (Aspirin EC) 81 Mg Tablet.dr, 81 MG PO DAILY, (Reported) Discontinued Reason: No Longer Taking Entered as Reported by: CHEIKH AMARAL on 02/25/21922 Last Action: Discontinued Bupropion HCl (Wellbutrin Xl) 300 Mg Tab.er.24h, 300 MG PO DAILY, (Reported) Discontinued Reason: Duplicate Order Entered as Reported by: LLOYD HOOKER on 10/24/16 1517 Last Action: Discontinued Cranberry Fruit (Cranberry) 450 Mg Tablet, 450 MG PO BID, (Reported) Discontinued Reason: No Longer Taking Entered as Reported by: JUAN TOLLIVER on 11/17/19 1322 Last Action: Discontinued Dextromethorphan HBr/B-Sergio (Cepacol Sorethroat-Cough Jeyson) 1 Each Lozenge, 1 EACH PO EVERY 2 HOURS PRN for COUGH, (Reported) Discontinued Reason: Duplicate Order Entered as Reported by: CHEIKH AMARAL on 02/25/21922 Last Action: Discontinued Ertapenem Sodium (Ertapenem) 1 Gm Vial, 1 GM IV DAILY Discontinued Reason: No Longer Taking Prescribed by: SAMI LAM on 02/28/21 1228 Last Action: Discontinued Hydrocodone/Acetaminophen (Hydrocodone-Acetamin 5-325 mg) 1 Each Tablet, 0.5-1 EACH PO Q6H PRN for PAIN-MODERATE (5-7), (Reported) Discontinued Reason: Duplicate Order Entered as Reported by: MARGY BONDS on 11/17/19 0051 Last Action: Discontinued Nystatin (Nystatin) 15 Gm Cream..g., 1 APPLIC TP 0800,1400,2000, (Reported) Discontinued Reason: Duplicate Order Entered as Reported by: CHEIKH AMARAL on 04/29/19 1323 Last Action: Discontinued Review of Systems Review of Systems Constitutional: see HPI, weakness EENTM: no symptoms reported Respiratory: see HPI Cardiovascular: no symptoms reported Gastrointestinal: see HPI Genitourinary: no symptoms reported Musculoskeletal: no symptoms reported Skin: no symptoms reported Psychiatric/Neurological: See HPI Hematologic/Lymphatic: No Symptoms Reported Immunological/Allergic: no symptoms reported Past Ozvsqcd-Iwekjx-Efyvpc Hx Patient Social History Tobacco Use?: No Use of E-Cig and/or Vaping dev: No Substance use?: No Alcohol Use?: No Pt feels they are or have been: No Immunizations Up To Date First/Initial COVID19 Vaccinat: 05/14/20 Second COVID19 Vaccination Evangelista: 06/03/20 Third COVID19 Vaccination Date: 02/21/21 Seasonal Allergies Seasonal Allergies: No Past Medical History Surgery/Hospitalization HX: pmh: depression, htn, gerd, edema, DM 2, copd, high cholesterol Surgeries: Yes (CARDIAC CATH 05/2017--PATENT STENT, NON-OCCLUSIIVE CAD--NO INTERVENTION) Cardiac, Coronary Stent, Eye Surgery, Transurethral Resection Respiratory: Yes (HX OF SEPSIS, O2 AT 3 L/NC CONTINUOUSLY; CHRONIC COUGH) Pneumonia, Chronic Bronchitis, Sleep Apnea, COPD Currently Using CPAP: Yes Cardiac: Yes (RBBB, LAFB; CARDIAC CATHS--STENT X 1) Chronic Edema/Swelling, Coronary Artery Disease, High Cholesterol, Hypertension Neurological: Yes Dementia, Neuropathy Reproductive Disorders: No Sexually Transmitted Disease: No HIV/AIDS: No Genitourinary: Yes (INDWELLING ESCALANTE, CHRONIC BILATERAL HYDRONEPHROSIS) Benign Prostatic Hyperpl, Prostate Problems, Neurogenic Bladder, UTI-Chronic Gastrointestinal: Yes Gastroesophageal Reflux, Chronic Constipation Musculoskeletal: Yes Arthritis, Chronic Back Pain Endocrine: Yes (THYROID NODULE) Diabetes, Insulin dep HEENT: Yes (ANGIOEDEMA OF TONGUE) Cataract Hearing Impairment: Hard of Hearing Cancer: No Psychosocial: Yes Sleep Difficulties, Anxiety, Depression Integumentary: No Blood Disorders: No Adverse Reaction/Blood Tranf: No Family Medical History Family history: Hypertension 03 FATHER Stroke 03 MOTHER No Pertinent Family Hx PSH: -CATARACT SURGERY -TURP 10/31/[address] LAROSE -CARDIAC CATHS--STENT X 1--LAST CATH 05/2017--PATENT STENT, NON-OCCLUSIVE CAD, NO INTERVENTION -CHOLECYSTETCOMY Physical Exam Vital Signs Vital Signs - First Documented 10/21/21 08:21 Temp 35.9 Pulse 69 Resp 20 B/P (MAP) 125/64 (84) Pulse Ox 96 O2 Delivery Nasal Cannula O2 Flow Rate 4.00 Capillary Refill : Less Than 3 Seconds Height, Weight, BMI Height: 5'9.00" Weight: 260lbs. 0.0oz. 117.058230ng; 35.00 BMI Method:Stated General Appearance: No Apparent Distress, Other (Generally ill-appearing, somnolent or fatigued) HEENT: PERRL/EOMI, Normal ENT Inspection Neck: Normal Inspection Respiratory: Lungs Clear, Normal Breath Sounds, Crackles (Faint in the bases and clearing with deep breaths), Other (Increased expiratory effort) Cardiovascular: Regular Rate, Rhythm, No Edema, No Murmur, Normal Peripheral Pulses Gastrointestinal: Normal Bowel Sounds, Non Tender, Soft; No Distended Extremity: Normal Inspection, No Pedal Edema Neurologic/Psychiatric: Alert, Other (Minimal but appropriate responses to questions) Skin: Normal Color, Warm/Dry Focused Exam Lactate Level 10/21/21 08:25: Lactic Acid Level 1.22 Lactic Acid Level Laboratory Tests Test 10/21/21 08:25 Lactic Acid Level 1.22 MMOL/L (0.50-2.00) Progress/Results/Core Measures Suspected Sepsis SIRS Temperature: Pulse: 69 Respiratory Rate: 20 Laboratory Tests 10/21/21 08:25: White Blood Count 7.8 Blood Pressure 125 /64 Mean: 84 10/21/21 08:25: Lactic Acid Level 1.22 Laboratory Tests 10/21/21 08:25: Creatinine 2.16H, INR Comment 1.1, Platelet Count 188, Total Bilirubin 0.7 Results/Orders Lab Results Laboratory Tests Test 10/21/21 07:58 10/21/21 08:25 10/21/21 08:29 10/21/21 09:34 Range/Units Bedside Blood Gas pH (LAB) 7.413 H 7.310-7.410 Bedside Blood Gas pCO2 (LAB) 51.5 H 41.0-51.0 mmHg Bedside Blood Gas pO2 (LAB) 68 L 80-105 mmHg Bedside Blood Gas HCO3 (LAB) 32.9 H 23.0-28.0 mmol/L POC Blood Gas Total CO2 Calc 34 H 24-29 mmol/L Bedside Bl Gas O2 Saturation (Calc) 93 L 95-98 % Bedside Arterial Blood Base Excess 8 H -2-3 mmol/L White Blood Count 7.8 4.3-11.0 10^3/uL Red Blood Count 4.52 4.30-5.52 10^6/uL Hemoglobin 13.3 13.3-17.7 g/dL Hematocrit 42 40-54 % Mean Corpuscular Volume 93 80-99 fL Mean Corpuscular Hemoglobin 29 25-34 pg Mean Corpuscular Hemoglobin Concent 32 32-36 g/dL Red Cell Distribution Width 13.9 10.0-14.5 % Platelet Count 188 130-400 10^3/uL Mean Platelet Volume 10.3 9.0-12.2 fL Immature Granulocyte % (Auto) 1 % Neutrophils (%) (Auto) 64 42-75 % Lymphocytes (%) (Auto) 24 12-44 % Monocytes (%) (Auto) 9 0-12 % Eosinophils (%) (Auto) 2 0-10 % Basophils (%) (Auto) 0 0-10 % Neutrophils # (Auto) 5.0 1.8-7.8 10^3/uL Lymphocytes # (Auto) 1.9 1.0-4.0 10^3/uL Monocytes # (Auto) 0.7 0.0-1.0 10^3/uL Eosinophils # (Auto) 0.1 0.0-0.3 10^3/uL Basophils # (Auto) 0.0 0.0-0.1 10^3/uL Immature Granulocyte # (Auto) 0.0 0.0-0.1 10^3/uL Prothrombin Time 14.3 12.2-14.7 SEC INR Comment 1.1 0.8-1.4 Activated Partial Thromboplast Time 33 24-35 SEC Sodium Level 136 135-145 MMOL/L Potassium Level 4.2 3.6-5.0 MMOL/L Chloride Level 96 L 98-107 MMOL/L Carbon Dioxide Level 30 21-32 MMOL/L Anion Gap 10 5-14 MMOL/L Blood Urea Nitrogen 32 H 7-18 MG/DL Creatinine 2.16 H 0.60-1.30 MG/DL Estimat Glomerular Filtration Rate 31 BUN/Creatinine Ratio 15 Glucose Level 67 L 70-105 MG/DL Lactic Acid Level 1.22 0.50-2.00 MMOL/L Calcium Level 8.7 8.5-10.1 MG/DL Corrected Calcium 9.3 8.5-10.1 MG/DL Total Bilirubin 0.7 0.1-1.0 MG/DL Aspartate Amino Transf (AST/SGOT) 17 5-34 U/L Alanine Aminotransferase (ALT/SGPT) 26 0-55 U/L Alkaline Phosphatase 86 40-136 U/L C-Reactive Protein High Sensitivity 8.85 H 0.00-0.50 MG/DL Total Protein 6.5 6.4-8.2 GM/DL Albumin 3.2 3.2-4.5 GM/DL Lipase 17 8-78 U/L Glucometer 69 L 70-110 MG/DL Urine Color YELLOW Urine Clarity CLEAR Urine pH 6.0 5-9 Urine Specific [place] >=1.030 1.016-1.022 Urine Protein 1+ H NEGATIVE Urine Glucose (UA) NEGATIVE NEGATIVE Urine Ketones NEGATIVE NEGATIVE Urine Nitrite NEGATIVE NEGATIVE Urine Bilirubin NEGATIVE NEGATIVE Urine Urobilinogen 1.0 < = 1.0 MG/DL Urine Leukocyte Esterase 2+ H NEGATIVE Urine RBC (Auto) 3+ H NEGATIVE Urine RBC 10-25 H /HPF Urine WBC 50-100 H /HPF Urine Squamous Epithelial Cells 5-10 /HPF Urine Crystals NONE /LPF Urine Bacteria LARGE H /HPF Urine Casts NONE /LPF Urine Mucus NEGATIVE /LPF Urine Yeast FEW H /HPF Urine Culture Indicated YES My Orders Orders - MIRNA CARRION MD Cbc With Automated Diff (10/21/21 08:30) Comprehensive Metabolic Panel (10/21/21 08:30) Hs C Reactive Protein (10/21/21 08:30) Lipase (10/21/21 08:30) Ua Culture If Indicated (10/21/21 08:30) Ed Iv/Invasive Line Start (10/21/21 08:30) D50w (Emergency) Syringe (Dextrose 50% 5 (10/21/21 08:35) Chest 1 View, Ap/Pa Only (10/21/21 08:41) Albuterol/Ipra Inhalation Soln (Duoneb I (10/21/21 09:00) Svn Small Volume Nebulizer (10/21/21 08:50) Abdomen/Kub 1view (10/21/21 09:14) Urine Culture (10/21/21 09:34) Arterial Blood Draw - Obtain (10/21/21 07:58) Meropenem (Merrem 1000 Mg) (10/21/21 10:30) Blood Culture (10/21/21 10:20) Sputum Culture (10/21/21 10:20) Protime With Inr (10/21/21 10:20) Partial Thromboplastin Time (10/21/21 10:20) Vital Signs Adult Sepsis Patie Q15M (10/21/21 10:20) O2 (10/21/21 10:20) Remove Rings In Anticipation O (10/21/21 10:20) Lactic Acid Analyzer (10/21/21 10:20) Accucheck Stat ONCE (10/21/21 10:42) Medications Given in ED Current Medications Medications Dose Ordered Sig/Areli Route Start Time Stop Time Status Last Admin Dose Admin Meropenem 1000 mg/ Sodium Chloride 100 ml @ 200 mls/hr ONCE ONCE IV 10/21/21 10:30 10/21/21 10:59 DC 10/21/21 10:32 200 MLS/HR Vital Signs/I&O 10/21/21 10/21/21 08:21 09:01 Temp 35.9 Pulse 69 Resp 20 B/P (MAP) 125/64 (84) Pulse Ox 96 97 O2 Delivery Nasal Cannula Nasal Cannula O2 Flow Rate 4.00 3.50 Capillary Refill : Less Than 3 Seconds Blood Pressure Mean: 84 Progress Note #1: Time: Progress Note Patient's mild hypoglycemia was treated with D50, 25 g. Lab work-up revealed mild acute kidney injury from baseline last year. He also had a significant urinary tract infection. Blood cultures were obtained and therapy was started with meropenem based on prior culture results. A DuoNeb treatment was given for his respiratory issues with improvement in respiratory status per respiratory therapist. Case was reviewed with Dr. Mullins who agrees with admission. Progress Note #2: Time: : Progress Note Fingerstick blood sugar was on the lower range of normal. An additional D50 amp is being administered before moving to the floor. Diagnostic Imaging Diagonstic Imaging: Xray Plain Films/CT/US/NM/MRI: chest Comments NAME: VIVIANGUALBERTO Daniel [facility] REC#: [id number] PT STATUS: REG ER : 1945 PHYSICIAN: MIRNA CARRION MD ADMIT DATE: 10/21/21/ER Draft Date of Exam:10/21/21 CHEST 1 VIEW, AP/PA ONLY INDICATION: Dyspnea. Portable AP view of the chest is obtained with comparison made study of 12/30/2020 FINDINGS: Heart size and pulmonary vascularity are at the upper limits of normal. There is background air trapping. No pneumothorax or consolidation is identified. There is no significant pleural fluid. IMPRESSION: Borderline cardiomegaly with background emphysema and probable COPD. No definite acute abnormality is identified. Dictated on workstation # [id number] Dict: 10/21/21 0935 Trans: 10/21/21937 [id number] Interpreted by: VIRGINIE BEACH MD Diagonstic Imaging: Xray Plain Films/CT/US/NM/MRI: abdomen Comments NAME: GUALBERTO PARK [facility] REC#: [id number] PT STATUS: REG ER : 1945 PHYSICIAN: MIRNA CARRION MD ADMIT DATE: 10/21/21/ER Draft Date of Exam:10/21/21 ABDOMEN/KUB 1VIEW HISTORY: Abdominal pain, bowel obstruction. COMPARISON: CT from 03/21/2019 TECHNIQUE: Frontal views of the abdomen. FINDINGS: There are some mildly prominent gas-filled loops of small bowel but no high-grade distention is seen. Gas is noted in the stomach and colon. No large collection of free air is seen. Cholecystectomy clips are noted. There are advanced degenerative changes in the lumbar spine. IMPRESSION: 1. Nonspecific bowel gas pattern with no high-grade distention seen. Dictated on workstation # [id number] Dict: 10/21/2136 Trans: 10/21/21 [id number] Interpreted by: MEGHNA EVANS MD Departure Communication (Admissions) Time/Spoke to Admitting Phy: 10:51 Dr. Mullins Impression Primary Impression: Urinary tract infection Qualified Codes: N39.0 - Urinary tract infection, site not specified Additional Impressions: Acute kidney injury Hypoglycemia Generalized weakness COPD exacerbation Disposition: ADMITTED INPATIENT Condition: Stable Admissions Decision to Admit Reason: Admit from ER (General) Decision to Admit/Date: Oct 21, 2021 Time/Decision to Admit Time: 10:51 Departure-Patient Inst. Referrals: VERENA LANCE MD (PCP/Family) Primary Care Physician MIRNA CARRION MD Oct 21, 2021 10:59
[2021-10-21] MEDS ORDERED: NS IV 500 ML 500 ML IV ONE (11:30)
[2021-10-21] MEDS ORDERED: DEXTROSE 50% 50 ML (IMS) SYR IV ONE (12:00)
[2021-10-21] MEDS ORDERED: CATHETER FLUSH 10 ML SYR IVP PRN (12:45)
[2021-10-21 13:06] VITALS: BP 125/64
[2021-10-21] MEDS: LACTATED RINGERS 1,000 ML IV SCH ×2 (13:45→20:47)
[2021-10-21] MEDS: RT-ALBUTEROL/IPRATROPIUM 3 ML (DUONEB) VIAL INH SCH ×3 (14:49→22:00)
[2021-10-21 15:43] VITALS: BP 163/69
[2021-10-21] MEDS ORDERED: BUPR150T24 PO (15:50)
[2021-10-21] MEDS ORDERED: DEXT1LOZ PO (15:50)
[2021-10-21] MEDS ORDERED: FAMO20TA3 PO (15:50)
[2021-10-21] MEDS ORDERED: NYST15CR TP (15:50)
[2021-10-21] MEDS ORDERED: POLY17PO6 PO (15:50)
[2021-10-21] MEDS ORDERED: AMLO-250 PO (15:50)
[2021-10-21] MEDS ORDERED: RT-ALBUTEROL/IPRATROPIUM 3 ML (DUONEB) VIAL INH PRN (16:00)
[2021-10-21] MEDS: MEROPENEM 500 MG/NS 100 ML IVPB IV SCH ×2 (18:15)
[2021-10-21 19:21] VITALS: BP 183/86
[2021-10-22] VITALS (8 sets, daily range): BP systolic 120–200; BP diastolic 59–120
[2021-10-22] MEDS: RT-ALBUTEROL/IPRATROPIUM 3 ML (DUONEB) VIAL INH SCH ×6 (02:09→22:16)
[2021-10-22] MEDS: MEROPENEM 500 MG/NS 100 ML IVPB IV SCH ×6 (02:46→17:16)
[2021-10-22] MEDS: LACTATED RINGERS 1,000 ML IV SCH ×4 (04:23→17:16)
[2021-10-22] MEDS ORDERED: NON-FORMULARY MEDICATION 1 EA EA (Risperidone 2 MG) PO SCH (08:15)
[2021-10-22] MEDS ORDERED: FAMOTIDINE 20 MG (PEPCID) TABLET PO SCH (09:00)
[2021-10-22] MEDS ORDERED: NON-FORMULARY MEDICATION 1 EA EA (Bupropion HCl (Bupropion Xl) 150 MG) PO SCH (09:00)
[2021-10-22] MEDS ORDERED: NON-FORMULARY MEDICATION 1 EA EA (Tiotropium Bromide (Spiriva Respimat 2.5MCG/ACTUATION) 2 IH SCH (09:00)
[2021-10-22 09:18] LABS: POTASSIUM 4.2 MMOL/L (3.6-5.0)
[2021-10-22 09:19] LABS: CALCIUM 8.9 MG/DL (8.5-10.1)
[2021-10-22 09:24] LABS: CREATININE SERUM 1.27 MG/DL (0.60-1.30)
[2021-10-22] MEDS: ISOSORBIDE MONONITRATE 30 MG (IMDUR) TAB PO SCH (09:25)
[2021-10-22] MEDS: MONTELUKAST 10 MG (SINGULAIR) TAB PO SCH (09:25)
[2021-10-22] MEDS: meTOprolol TARTRATE 50 MG (LOPRESSOR) TAB PO SCH ×2 (09:25→20:40)
[2021-10-22] MEDS: buPROPion SR 150 MG (WELLBUTRIN SR) TAB PO SCH (09:25)
[2021-10-22] MEDS: risperiDONE 1 MG (RisperDAL) TAB PO SCH ×2 (09:25→20:40)
[2021-10-22] MEDS: polyethylene glycoL POWDER 17 GM (MIRALAX) PACK PO SCH (09:25)
[2021-10-22] MEDS: PANTOPRAZOLE 40 MG (PROTONIX) TAB PO SCH (09:25)
[2021-10-22] MEDS: amLODIPine 5 MG (NORVASC) TAB PO SCH (09:25)
[2021-10-22] MEDS: FUROSEMIDE 20 MG (LASIX) TAB PO SCH (09:25)
[2021-10-22] MEDS: DOCUSATE SODIUM 100 MG (COLACE) CAP PO SCH ×2 (09:25→20:40)
[2021-10-22] MEDS: FLUTICASONE/VILANTEROL 100 MCG 14'S (BREO) IH SCH (10:15)
[2021-10-22] MEDS: inSUlin ASPART (NovoLOG) 1 UNIT/0.01 ML (CHARGE PER UNIT) SC SCH ×3 (11:12→20:40)
[2021-10-22] MEDS ORDERED: NON-FORMULARY MEDICATION 1 EA EA (Bethanechol Chloride 50 MG) PO SCH (12:00)
[2021-10-22] MEDS: BETHANECHOL 25 MG (URECHOLINE) TAB PO SCH ×3 (12:09→20:42)
--- NOTE | 2021-10-22 16:33 | History & Physical-Hospitalist ---
History of Present Illness HPI/Chief Complaint Dick Ann is a 76 year old male with PMH HTN, HLD, T2DM, CKD, chronic brady, recurrent UTIs due to MRD-E coli, who was brought in due to shakiness. He feels weak and tired. He denies pain. He denies shortness of breath. He denies cough. He denies dysuria. He denies nausea and vomiting. He denies diarrhea. He resides at [facility]. Source: patient Exam Limitations: no limitations Date Seen 10/22/21 Time Seen by a Provider: 11:15 Attending Physician Bhaskar Alcantara MD PCP Admitting Physician: Jessi Mullins MD Attending Physician: Sami Lam MD Referring Physician Date of Admission Oct 21, 2021 at 10:51 Home Medications & Allergies Home Medications Reviewed patient Home Medication Reconciliation performed by pharmacy medication reconciliations police service technician and/or nursing. Patients Allergies have been reviewed. Allergies Allergies Coded Allergies Penicillins (Unverified Allergy, Mild, HIVES, pt has rec Meropenem in the past, 10/21/21) duloxetine HCl (Verified Allergy, Mild, 11/16/19) Past Qfuwoch-Xarmhe-Zhzqtp Hx Patient Social History Tobacco Use?: No Use of E-Cig and/or Vaping dev: No Substance use?: No Alcohol Use?: No Pt feels they are or have been: No Immunizations Up To Date Date of Influenza Vaccine: Feb 17, 2021 First/Initial COVID19 Vaccinat: 05/14/20 Second COVID19 Vaccination Evangelista: 06/03/20 Tetanus Booster (TDap): Unknown Date of Pneumonia Vaccine: Mar 07, 2010 Seasonal Allergies Seasonal Allergies: No Current Status Advance Directives: No Communicates: Verbally Primary Language: Palestinian Preferred Spoken Language: Palestinian Is interpretation needed?: No Sensory deficits: Hearing impairment Implanted or Applied Medical D: None Past Medical History Surgeries: Cardiac, Coronary Stent, Eye Surgery, Transurethral Resection Pneumonia, Chronic Bronchitis, Sleep Apnea, COPD Currently Using CPAP: Yes Chronic Edema/Swelling, Coronary Artery Disease, High Cholesterol, Hypertension Dementia, Neuropathy Sexually Transmitted Disease: No HIV/AIDS: No Benign Prostatic Hyperpl, Prostate Problems, Neurogenic Bladder, UTI-Chronic Gastroesophageal Reflux, Chronic Constipation Arthritis, Chronic Back Pain Diabetes, Insulin dep Cataract Hearing Impairment: Hard of Hearing Sleep Difficulties, Anxiety, Depression Blood Disorders: No Adverse Reaction/Blood Tranf: No Family Medical History Family history: Hypertension 03 FATHER Stroke 03 MOTHER No Pertinent Family Hx PSH: -CATARACT SURGERY -TURP 10/31/[address] LAROSE -CARDIAC CATHS--STENT X 1--LAST CATH 05/2017--PATENT STENT, NON-OCCLUSIVE CAD, NO INTERVENTION -CHOLECYSTETCOMY Review of Systems Constitutional: weakness EENTM: no symptoms reported Respiratory: no symptoms reported Cardiovascular: no symptoms reported Gastrointestinal: no symptoms reported Genitourinary: no symptoms reported Musculoskeletal: no symptoms reported Skin: no symptoms reported Psychiatric/Neurological: No Symptoms Reported Physical Exam Physical Exam Vital Signs Vital Signs - First Documented 10/21/21 10/21/21 08:21 13:06 Temp 35.9 Pulse 69 Resp 20 B/P (MAP) 125/64 (84) Pulse Ox 96 O2 Delivery Nasal Cannula O2 Flow Rate 4.00 FiO2 36 Capillary Refill : Less Than 3 Seconds Height, Weight, BMI Height: 5'9.00" Weight: 260lbs. 0.0oz. 117.849343sz; 35.72 BMI Method:Stated General Appearance: No Apparent Distress, Chronically ill, Obese HEENT: PERRL/EOMI, Pharynx Normal Neck: Normal Inspection, Supple Respiratory: No Accessory Muscle Use, No Respiratory Distress, Decreased Breath Sounds Cardiovascular: Regular Rate, Rhythm, No Edema, No Murmur, Normal Peripheral Pulses Gastrointestinal: Normal Bowel Sounds, Non Tender, Soft Extremity: Normal Inspection, Non Tender, No Pedal Edema Neurologic/Psychiatric: Alert, No Motor/Sensory Deficits, Normal Mood/Affect Skin: Normal Color, Warm/Dry Results Results/Procedures Labs Laboratory Tests 10/21/21 08:25 10/22/21 08:37 Patient resulted labs reviewed. Imaging: Reviewed Imaging Report Assessment/Plan Admission Diagnosis E coli UTI Admission Status: Inpatient Order (span 2 midnights) Reason for Inpatient Admission: History of MDR-E coli Assessment and Plan E coli UTI History of MDR-E coli Multiple prior urine cultures with ESBL E coli UA consistent with UTI Urine culture pending Blood cultures pending Started on Meropenem T2DM with hypoglycemia Blood sugar 67 on arrival Holding long acting insulin Sliding scale insulin LILIANA on CKD Improved now IV fluids HTN HLD CAD Continue home meds Obesity Clinically significant, no acute management needs DVT prophylaxis: Lovenox Diagnosis/Problems Diagnosis/Problems (1) E. coli UTI (urinary tract infection) Status: Acute (2) History of ESBL E. coli infection Status: Chronic (3) Acute kidney injury superimposed on chronic kidney disease Status: Acute (4) T2DM (type 2 diabetes mellitus) Status: Acute Qualifiers: Diabetes mellitus mcc insulin use: with mcc use Diabetes mellitus complication status: with hypoglycemia Diabetes mellitus complication detail: without coma Qualified Codes: E11.649 - Type 2 diabetes mellitus with hypoglycemia without coma; Z79.4 - half-way (current) use of insulin (5) Obesity Status: Chronic SAMI LAM MD Oct 22, 2021 16:33
[2021-10-22] MEDS: ENOXAPARIN 40 MG/0.4 ML (LOVENOX) SYR SQ SCH (17:11)
[2021-10-22] MEDS: ONDANSETRON 4 MG/2 ML (SDV) Z0FRAN IV PRN (17:14)
[2021-10-22] MEDS ORDERED: hydrALAZINE (APESOLINE) 20 MG/ML VIAL IV PRN (17:15)
[2021-10-22] MEDS ORDERED: hydrALAZINE (APESOLINE) 20 MG/ML VIAL ONE (17:19)
[2021-10-22] MEDS: traZODone 150 MG (DESYREL) TABLET PO SCH (20:40)
[2021-10-22] MEDS: AtorvaSTATin TABLET 10 MG TABLET PO SCH (20:40)
[2021-10-22] MEDS: FAMOTIDINE 20 MG (PEPCID) TABLET PO SCH (20:40)
[2021-10-22] MEDS ORDERED: SIMVASTATIN 10 MG PO SCH (21:00)
[2021-10-23] VITALS (10 sets, daily range): BP systolic 91–163; BP diastolic 50–93
[2021-10-23] MEDS: MEROPENEM 500 MG/NS 100 ML IVPB IV SCH ×6 (01:45→16:52)
[2021-10-23] MEDS: RT-ALBUTEROL/IPRATROPIUM 3 ML (DUONEB) VIAL INH SCH ×5 (02:33→20:04)
[2021-10-23] MEDS: inSUlin ASPART (NovoLOG) 1 UNIT/0.01 ML (CHARGE PER UNIT) SC SCH ×4 (06:31→20:01)
[2021-10-23] MEDS: BETHANECHOL 25 MG (URECHOLINE) TAB PO SCH ×5 (06:31→20:01)
[2021-10-23] MEDS: buPROPion SR 150 MG (WELLBUTRIN SR) TAB PO SCH (08:39)
[2021-10-23] MEDS: PANTOPRAZOLE 40 MG (PROTONIX) TAB PO SCH (08:40)
[2021-10-23] MEDS: DOCUSATE SODIUM 100 MG (COLACE) CAP PO SCH ×2 (08:40→20:00)
[2021-10-23] MEDS: FUROSEMIDE 20 MG (LASIX) TAB PO SCH (08:40)
[2021-10-23] MEDS: polyethylene glycoL POWDER 17 GM (MIRALAX) PACK PO SCH (08:40)
[2021-10-23] MEDS: amLODIPine 5 MG (NORVASC) TAB PO SCH (08:40)
[2021-10-23] MEDS: MONTELUKAST 10 MG (SINGULAIR) TAB PO SCH (08:40)
[2021-10-23] MEDS: meTOprolol TARTRATE 50 MG (LOPRESSOR) TAB PO SCH ×2 (08:40→20:00)
[2021-10-23] MEDS: risperiDONE 1 MG (RisperDAL) TAB PO SCH ×2 (08:40→20:00)
[2021-10-23] MEDS: ISOSORBIDE MONONITRATE 30 MG (IMDUR) TAB PO SCH (08:40)
[2021-10-23] MEDS: FLUTICASONE/VILANTEROL 100 MCG 14'S (BREO) IH SCH (09:00)
[2021-10-23] MEDS: UMECLIDINIUM BROMIDE (INCRUSE ELLIPTA) 7'S IH SCH (09:00)
--- NOTE | 2021-10-23 11:25 | Diagnostic Imaging Report ---
REASON FOR EXAM: Abdominal pain. Nausea. COMPARISON: 10/21/2021. TECHNIQUE: 4 views of the abdomen FINDINGS: Increased gaseous distention of the stomach is seen since the prior exam. No evidence of small bowel obstruction. Small to moderate volume of stool seen in the colon. No large collections of free intraperitoneal air. No acute osseous abnormalities. IMPRESSION: 1. Increasing marked gaseous distention of the stomach. Consider decompression with NG tube. Dictated by: Dictated on workstation # [id number]
[2021-10-23 11:31] LABS: HEMATOCRIT 42 % (40-54); HEMOGLOBIN 13.9 g/dL (13.3-17.7); MEAN CORPUSCULAR HEMOGLOBIN 30 pg (25-34); MEAN CORPUSCULAR HGB CONC 33 g/dL (32-36); MEAN CORPUSCULAR VOLUME 89 fL (80-99); MEAN PLATELET VOLUME 9.9 fL (9.0-12.2); PLATELET COUNT 239 10^3/uL (130-400); WHITE BLOOD COUNT 12.1 10^3/uL (4.3-11.0)
[2021-10-23 11:42] LABS: ALBUMIN 3.2 GM/DL (3.2-4.5); POTASSIUM 4.7 MMOL/L (3.6-5.0)
[2021-10-23 11:43] LABS: CALCIUM 8.7 MG/DL (8.5-10.1)
[2021-10-23 11:44] LABS: TOTAL PROTEIN 6.5 GM/DL (6.4-8.2)
[2021-10-23 11:46] LABS: BILIRUBIN,TOTAL 0.8 MG/DL (0.1-1.0)
[2021-10-23 11:48] LABS: CREATININE SERUM 1.59 MG/DL (0.60-1.30)
[2021-10-23] MEDS: ONDANSETRON 4 MG/2 ML (SDV) Z0FRAN IV PRN ×2 (12:01→16:51)
--- NOTE | 2021-10-23 15:18 | CONSULTATION REPORT ---
DATE OF SERVICE: ATTENDING PHYSICIAN: Dr. Fam. HISTORY OF PRESENT ILLNESS: The patient is a 76-year-old male who was seen in consultation with Dr. Babcock. He was admitted two days ago after EMS brought him from [facility] with concerns of shakiness versus possible bowel obstruction versus possible sepsis. He did have a KUB, which showed a large amount of stool. He denied any nausea at that time. He does seem to have slower cognitive function; however, does verbally communicate and respond to questions, but is only alert and oriented to person. Upon further questioning today, he reports that his abdominal pain is improved since he ate; however, he does complain of nausea and has had some dark black emesis. He is also tender to palpation in the epigastric region. PAST MEDICAL HISTORY: Depression, hypertension, gastroesophageal reflux disease, edema, type 2 diabetes, COPD, hypercholesterolemia, coronary artery disease, sleep apnea, bronchitis, dementia, neuropathy, BPH, chronic UTIs, arthritis, anxiety. PAST SURGICAL HISTORY: TURP, cardiac catheterization with stent placement, cholecystectomy. ALLERGIES: PENICILLIN, DULOXETINE. MEDICATIONS: Tylenol 325 mg 2 tablets q.4 hours p.r.n., albuterol sulfate nebulizer solution 3 mL q.4 hours p.r.n. Amlodipine 5 mg daily. Ascorbic acid 500 mg 3 tablets daily, Tessalon Perles 200 mg t.i.d. p.r.n. Bethanechol chloride 50 mg before meals and bedtime. Bupropion 150 mg daily, cholestyramine daily p.r.n., citalopram 20 mg daily, Cepacol spray every 2 hours p.r.n., docusate sodium 100 mg b.i.d., famotidine 20 mg b.i.d. Breo Ellipta 100/25 mcg daily. Lasix 20 mg daily, guaifenesin 600 mg q.i.d. p.r.n. Insulin aspart subQ a.c. Lantus 51 units at bedtime, isosorbide mononitrate daily, glimepiride 2 mg p.r.n., losartan potassium 50 mg daily, metoprolol 50 mg b.i.d., Singulair 10 mg daily, nystatin t.i.d., Zofran 4 mg q.4 hours p.r.n., Protonix 40 mg daily, MiraLax 17 grams daily, potassium chloride 20 mEq daily, risperidone 2 mg q.12h, simvastatin 10 mg at bedtime, Spiriva 2 puffs daily, trazodone 150 mg at bedtime. SOCIAL HISTORY: Negative for tobacco, smoke. Negative for alcohol. FAMILY HISTORY: Father, hypertension. Mother, stroke. VITAL SIGNS: Temperature 36.5 degrees Celsius, pulse 92, respirations 20, blood pressure 163/91, pulse ox 96% on 3 liters nasal cannula. REVIEW OF SYSTEMS: This is a well-nourished elderly male in no acute distress. He does report nausea as well as some emesis as well as weakness. He does have a history of reflux. Denied any blood in his stool. He does have a history of constipation. All other review of systems negative. PHYSICAL EXAMINATION: CHEST: Clear. Good breath sounds bilaterally. HEART: Regular, no murmurs. EXTREMITIES: No lower extremity edema. Negative Homans sign. HEENT: No scleral icterus. NECK: No cervical lymphadenopathy. ABDOMEN: Soft, nondistended. There is some tenderness with palpation in the epigastric region and the patient does moan upon examination. SKIN: Warm, dry and pink. NEUROLOGIC: Awake and alert to person. ASSESSMENT AND PLAN: A 76-year-old male with nausea as well as hematemesis. He also has some epigastric pain and this may be secondary to gastritis versus peptic ulcer disease. At this time, we will proceed with PPI acid police dispatcher twice daily as well as repeat CBC to check his hemoglobin. We will also proceed with scheduling him for an EGD on this admission. Job ID: [id number] DocumentID: [id number] Dictated Date: 10/23/2021 11:20:14 Nib Adjuster Date: 10/23/2021 15:18:02 Dictated By: MEHNAZ WIGGINS APRN
[2021-10-23] MEDS: ENOXAPARIN 40 MG/0.4 ML (LOVENOX) SYR SQ SCH (16:51)
--- NOTE | 2021-10-23 17:53 | Progress Note - Hospitalist ---
Subjective HPI/CC On Admission Date Seen by Provider: Oct 23, 2021 Time Seen by Provider: 10:25 Dick Ann is a 76 year old male with PMH HTN, HLD, T2DM, CKD, chronic brady, recurrent UTIs due to MRD-E coli, who was brought in due to shakiness. He feels weak and tired. He denies pain. He denies shortness of breath. He denies cough. He denies dysuria. He denies nausea and vomiting. He denies diarrhea. He resides at [facility]. Subjective/Events-last exam He is feeling nauseous. He had coffee ground emesis. He is haivng abdominal pain. He is not having bowel movements. Focused Exam Lactate Level 10/21/21 08:25: Lactic Acid Level 1.22 Objective Exam Vital Signs Vital Signs Date Time Temp Pulse Resp B/P (MAP) Pulse Ox O2 Delivery O2 Flow Rate FiO2 10/23/21 16:04 37.0 92 18 136/93 (107) 94 Nasal Cannula 3.00 10/23/21 07:45 32 Capillary Refill : Less Than 3 Seconds General Appearance: Mild Distress (nauseous), Obese Respiratory: Lungs Clear, No Respiratory Distress Cardiovascular: Regular Rate, Rhythm, No Murmur Gastrointestinal: Soft, Abnormal Bowel Sounds (hypoactive), Tenderness Extremity: Normal Inspection, Pedal Edema Neurologic/Psychiatric: Alert, Disoriented Skin: Normal Color, Warm/Dry Results/Procedures Lab Laboratory Tests 10/23/21 11:25 Patient resulted labs reviewed. Imaging: Reviewed Imaging Report Assessment/Plan Assessment and Plan Assess & Plan/Chief Complaint E coli UTI History of MDR-E coli Multiple prior urine cultures with ESBL E coli UA consistent with UTI Urine culture with E coli Blood cultures with no growth Continue Meropenem Nausea and vomiting Abdominal pain Coffee ground emesis KUB ordered, showed gastric distension Surgery consulted, planning for EGD Sunday IV PPI BID Consider NG tube if emesis persists or distension worsens NPO IV fluids T2DM with hypoglycemia Blood sugar 67 on arrival Holding long acting insulin Sliding scale insulin LILIANA on CKD Resume IV fluids HTN HLD CAD Continue home meds Obesity Clinically significant, no acute management needs DVT prophylaxis: Lovenox Diagnosis/Problems Diagnosis/Problems (1) E. coli UTI (urinary tract infection) Status: Acute (2) History of ESBL E. coli infection Status: Chronic (3) Acute kidney injury superimposed on chronic kidney disease Status: Acute (4) T2DM (type 2 diabetes mellitus) Status: Acute Qualifiers: Diabetes mellitus custodial insulin use: with ad terminal makeup operator use Diabetes mellitus complication status: with hypoglycemia Diabetes mellitus complication detail: without coma Qualified Codes: E11.649 - Type 2 diabetes mellitus with hypoglycemia without coma; Z79.4 - termite treater helper (current) use of insulin (5) Obesity Status: Chronic SAMI LAM MD Oct 23, 2021 17:52
[2021-10-23] MEDS ORDERED: NS IV 1000 ML 1,000 ML ONE (18:20)
[2021-10-23] MEDS: NS IV 1000 ML 1,000 ML IV SCH (18:23)
[2021-10-23] MEDS: traZODone 150 MG (DESYREL) TABLET PO SCH (20:00)
[2021-10-23] MEDS: PANTOPRAZOLE 40 MG (PROTONIX) VIAL IV SCH (20:00)
[2021-10-23] MEDS: AtorvaSTATin TABLET 10 MG TABLET PO SCH (20:00)
[2021-10-23] MEDS: FAMOTIDINE 20 MG (PEPCID) TABLET PO SCH (20:00)
[2021-10-24] VITALS (7 sets, daily range): BP systolic 149–214; BP diastolic 74–98
[2021-10-24] MEDS: NS IV 1000 ML 1,000 ML IV SCH ×3 (01:31→22:45)
[2021-10-24] MEDS: MEROPENEM 500 MG/NS 100 ML IVPB IV SCH ×6 (01:32→17:43)
[2021-10-24] MEDS: RT-ALBUTEROL/IPRATROPIUM 3 ML (DUONEB) VIAL INH SCH ×4 (02:57→22:05)
[2021-10-24] MEDS: inSUlin ASPART (NovoLOG) 1 UNIT/0.01 ML (CHARGE PER UNIT) SC SCH ×4 (05:26→20:42)
[2021-10-24] MEDS: BETHANECHOL 25 MG (URECHOLINE) TAB PO SCH ×4 (05:27→20:27)
[2021-10-24 06:07] LABS: BASOPHILS % (AUTO) 0 % (0-10); EOSINOPHILS # (AUTO) 0.1 10^3/uL (0.0-0.3); EOSINOPHILS % (AUTO) 1 % (0-10); HEMATOCRIT 39 % (40-54); HEMOGLOBIN 12.5 g/dL (13.3-17.7); LYMPHOCYTES # (AUTO) 2.3 10^3/uL (1.0-4.0); LYMPHOCYTES % (AUTO) 22 % (12-44); MEAN CORPUSCULAR HEMOGLOBIN 29 pg (25-34); MEAN CORPUSCULAR HGB CONC 32 g/dL (32-36); MEAN CORPUSCULAR VOLUME 89 fL (80-99); MEAN PLATELET VOLUME 9.8 fL (9.0-12.2); MONOCYTES # (AUTO) 1.1 10^3/uL (0.0-1.0); MONOCYTES % (AUTO) 10 % (0-12); NEUTROPHILS % (AUTO) 67 % (42-75); PLATELET COUNT 190 10^3/uL (130-400); WHITE BLOOD COUNT 10.5 10^3/uL (4.3-11.0)
[2021-10-24 06:24] LABS: POTASSIUM 3.6 MMOL/L (3.6-5.0)
[2021-10-24 06:25] LABS: CALCIUM 8.2 MG/DL (8.5-10.1)
[2021-10-24 06:29] LABS: CREATININE SERUM 1.65 MG/DL (0.60-1.30)
[2021-10-24] MEDS: buPROPion SR 150 MG (WELLBUTRIN SR) TAB PO SCH (07:53)
[2021-10-24] MEDS: risperiDONE 1 MG (RisperDAL) TAB PO SCH ×2 (07:53→20:20)
[2021-10-24] MEDS: FUROSEMIDE 20 MG (LASIX) TAB PO SCH (07:54)
[2021-10-24] MEDS: ISOSORBIDE MONONITRATE 30 MG (IMDUR) TAB PO SCH (07:54)
[2021-10-24] MEDS: amLODIPine 5 MG (NORVASC) TAB PO SCH (07:54)
[2021-10-24] MEDS: MONTELUKAST 10 MG (SINGULAIR) TAB PO SCH (07:54)
[2021-10-24] MEDS: meTOprolol TARTRATE 50 MG (LOPRESSOR) TAB PO SCH ×2 (07:54→20:21)
[2021-10-24] MEDS: FLUTICASONE/VILANTEROL 100 MCG 14'S (BREO) IH SCH (07:55)
[2021-10-24] MEDS: UMECLIDINIUM BROMIDE (INCRUSE ELLIPTA) 7'S IH SCH (07:55)
[2021-10-24] MEDS: PANTOPRAZOLE 40 MG (PROTONIX) VIAL IV SCH ×2 (07:55→20:24)
[2021-10-24] MEDS: DOCUSATE SODIUM 100 MG (COLACE) CAP PO SCH ×2 (09:44→20:27)
[2021-10-24] MEDS: polyethylene glycoL POWDER 17 GM (MIRALAX) PACK PO SCH (09:45)
[2021-10-24] MEDS: hydrALAZINE (APESOLINE) 20 MG/ML VIAL IV PRN ×2 (11:50→20:25)
--- NOTE | 2021-10-24 14:54 | Physical Therapy Evaluation ---
PT Evaluation-General Medical Diagnosis Admission Date Oct 21, 2021 at 10:51 Medical Diagnosis: URINARY TRACT INFECTION, WEAKNESS, CHRONIC PULMONARY OBSTRUCTIVE DISEASE Onset Date: Oct 21, 2021 Therapy Diagnosis Therapy Diagnosis: impaired mobility, strength, ROM Height/Weight Height (Feet): 5 Height (Inches): 9.00 Weight (Pounds): 260 Weight (Ounces): 0.0 Precautions Precautions/Isolations: Contact Isolation Referral Physician: Cristel Reason for Referral: Evaluation/Treatment Medical History Pertinent Medical History: Arthritis, CAD, COPD, DM, Dementia, HTN, Neuropathy Additional Medical History Past Medical History Surgeries: Cardiac, Coronary Stent, Eye Surgery, Transurethral Resection Pneumonia, Chronic Bronchitis, Sleep Apnea, COPD Currently Using CPAP: Yes Chronic Edema/Swelling, Coronary Artery Disease, High Cholesterol, Hypertension Dementia, Neuropathy Sexually Transmitted Disease: No HIV/AIDS: No Benign Prostatic Hyperpl, Prostate Problems, Neurogenic Bladder, UTI-Chronic Gastroesophageal Reflux, Chronic Constipation Arthritis, Chronic Back Pain Diabetes, Insulin dep Cataract Hearing Impairment: Hard of Hearing Sleep Difficulties, Anxiety, Depression Blood Disorders: No Adverse Reaction/Blood Tranf: No Social History Home: Jail Prior Prior Level of Function SCALE: Activities may be completed with or without assistive devices. 8-Vbdnlvkfms-eporohc completes the activity by him/herself with no assistance fr om a helper. 5-Set-up or Clean-up Assistance-helper sets up or cleans up; patient completes activity. [place] assists only prior to or following the activity. 4-Supervision or Touching Assistance-helper provides verbal cues and/or touching/steadying and/or contact guard assistance as patient completes activity. Assistance may be provided throughout the activity or intermittently. 3-Partial/Moderate Assistance-helper does LESS THAN HALF the effort. [place] lifts, holds or supports trunk or limbs, but provides less than half the effort. 2-Substantial/Maximal Assistance-helper does MORE THAN HALF the effort. [place] lifts or holds trunk or limbs and provides more than half the effort. 5-Egjmrbenm-xehxmh does ALL the effort. Patient does none of the effort to complete the activity. Or, the assistance of 2 or more helpers is required for the patient to complete the activity. If activity was not attempted, code reason: 7-Patient Refused. 9-Not Applicable-not attempted and the patient did not perform the activity before the current illness, exacerbation or injury. 10-Not Attempted due to Environmental Limitations-(lack of equipment, weather restraints, etc.). 88-Not Attempted due to Medical Conditions or Safety Concerns. Bed Mobility: 3 Transfers (B,C,W/C): 3 Prior Devices Use: Manual wheelchair PT Evaluation-Current Subjective Patient in bed pre tx, agrees to PT, has no complaints of pain but is nauseated. Patient states he has not been ambulating and isn't sure how long he has not been ambulating, he says he has been performing transfers to the . Pt/Family Goals "to get stronger" Objective Patient Orientation: Person, Confused, Place Attachments: Oxygen, Shafer Catheter ROM/Strength ROM Lower Extremities limited bilateral knee extension by about 15 degrees from full extension Strength Lower Extremities grossly 4-/5 BLE Sensory Hearing: Functional Transfers attempted to sit to the side of the bed but after just starting patient states he needs to vomit, he has a basin that he keeps on his belly, therapy is stopped and he tries to vomit but the feeling passes, patient is then scooted up in bed and made him comfortable. Assessment/Needs Patient in bed post tx with nurse call, phone, tray, all needs met, bed alarm on. Patient would benefit from LE ROM and strengthening and sit and stand if his nausea subsides. Rehab Potential: Guarded PT International Tax Manager Goals International Tax Manager Goals PT International Tax Manager Goals Time Frame: Oct 31, 2021 Roll Left & Right (QC): 3 Sit to Lying (QC): 3 Lying-Sitting on Side/Bed(QC): 3 Sit to Stand (QC): 3 Chair/Ebx-up-Psypc Xfer(QC): 3 PT Plan Problem List Problem List: Activity Tolerance, Functional Strength, Safety, Balance, Gait, Transfer, Bed Mobility, ROM Treatment/Plan Treatment Plan: Continue Plan of Care Treatment Plan: Bed Mobility, Education, Functional Activity Mehdi, Functional Strength, Gait, Safety, Therapeutic Exercise, Transfers Treatment Duration: Oct 31, 2021 Frequency: 6 times per week Estimated Hrs Per Day: .25 hour per day Patient and/or Family Agrees t: Yes Safety Risks/Education Patient Education: Correct Positioning, Safety Issues Teaching Recipient: Patient Teaching Methods: Demonstration, Discussion Response to Teaching: Reinforcement Needed Discharge Recommendations Plan Patient will perform bed mobility and transfer training, balance and endurance training, functional strengthening, gait training, and education, to improve functional mobility and independence at home. Therapy Discharge Recommendati: Other, See Comments (NH) Time/GCodes Time In: 1445 Time Out: 1455 Total Billed Treatment Time: 10 Total Billed Treatment 1 visit PATSY SANTOS PT Oct 24, 2021 14:53
--- NOTE | 2021-10-24 14:58 | Occupational Therapy Eval ---
OT Evaluation-General/PLF Medical Diagnosis Admission Date Oct 21, 2021 at 10:51 Medical Diagnosis: UTI, weakness Onset Date: Oct 21, 2021 Therapy Diagnosis Therapy Diagnosis: reduced adl status Height/Weight Height (Feet): 5 Height (Inches): 9.00 Weight (Pounds): 260 Weight (Ounces): 0.0 Precautions Precautions/Isolations: Contact Isolation Safety Interventions: Reorient-Attempt Referral Physician: Cristel Referral Reason: Evaluation/Treatment Medical History Pertinent Medical History: Arthritis, CAD, COPD, DM, Dementia, HTN, Neuropathy Current History Pt presents to ER from [facility] with increased AMS and tremors. Pt found to have UTI. Per chart, normal mentation is A&O x1. Pt resides at [facility] and reports having assistance with adls. Unsure how much assist is required. When asked what form of AD he uses he verbalized "it has changed," but shook his head yes when asked if he uses a w/c. Per chart, pt was using a FWW. Poor historian, no family present to verify responses. Reviewed History: Yes Social History Home: Halfway Entry Into Home: Level Entry ADL-Prior Level of Function SCALE: Activities may be completed with or without assistive devices. 2-Cedzjtmxuv-ogbejqo completes the activity by him/herself with no assistance from a helper. 5-Set-up or Clean-up Assistance-helper sets up or cleans up; patient completes activity. [place] assists only prior to or following the activity. 4-Supervision or Touching Assistance-helper provides verbal cues and/or touching/steadying and/or contact guard assistance as patient completes activity. Assistance may be provided throughout the activity or intermittently. 3-Partial/Moderate Assistance-helper does LESS THAN HALF the effort. [place] lifts, holds or supports trunk or limbs, but provides less than half the effort. 2-Substantial/Maximal Assistance-helper does MORE THAN HALF the effort. [place] lifts or holds trunk or limbs and provides more than half the effort. 0-Abxqykidn-kzantb does ALL the effort. Patient does none of the effort to complete the activity. Or, the assistance of 2 or more helpers is required for the patient to complete the activity. If activity was not attempted, code reason: 7-Patient Refused. 9-Not Applicable-not attempted and the patient did not perform the activity before the current illness, exacerbation or injury. 10-Not Attempted due to Environmental Limitations-(lack of equipment, weather restraints, etc.). 88-Not Attempted due to Medical Conditions or Safety Concerns. Self Care: Unknown Functional Cognition: Dependent Drive Self: No OT Current Status Subjective Pt reports not feeling well. He has a basin in front of him and he reports he has been sick all day. Appearance Pt left supine in bed, all needs within reach. Mental Status/Objective Patient Orientation: Person Attachments: Brady Catheter, IV, Oxygen (3L) Current Hand Dominance: Right Upper Extremity ROM R shoulder: ~150 degrees AROM, full PROM L shoulder: WNL Upper Extremity Strength R shoulder impaired: 3-/5 L shoulder: 3/5 Bilateral programming instructor: fair ADL-Treatment On/Off Footwear (QC): 1 Toileting Hygiene (QC): 1 (brady catheter) Upon therapy arrival, pt presenting very far down in bed. Dependent x2 to supine scoot to HOB. He has a basin in front of him and reports he has been throwing up all day. Attempt to sit EOB. Unable to complete transfer due to nausea/vomiting with all movement. Pt requesting water but is currently NPO due to possible EGD tomorrow. Oral sponge provided. Pt able to bring to mouth without difficulty. Education OT Patient Education: Correct positioning, Purpose of tx/functional activities, Safety issues, Transfer techniques Teaching Recipient: Patient Teaching Methods: Discussion Response to Teaching: Verbalize Understanding, Reinforcement Needed OT Piercing Artist Goals Piercing Artist Goals Time Frame: Nov 03, 2021 Eating (QC): 5 Oral Hygiene (QC): 4 Toileting Hygiene (QC): 3 Upper Body Dressing (QC): 3 Lower Body Dressing (QC): 3 1=Demonstrate adherence to instructed precautions during ADL tasks. 2=Patient will verbalize/demonstrate understanding of assistive devices/modifications for ADL. 3=Patient will improve strength/tolerance for activity to enable patient to perform ADL's. Unsure of patients baseline with adls at this time. Goals may be adjusted/discharged if not appropriate. OT Education/Plan Problem List/Assessment Assessment: Decreased Activ Tolerance, Decreased Safety Aware, Decreased UE Strength, Impaired Bed Mobility, Impaired Cognition, Impaired Funct Balance, I mpaired Self-Care Skills, Restricted Funct UE ROM Discharge Recommendations Plan/Recommendations: Continue POC Target Placement anticipate return to assisted once medically stable. Treatment Plan/Plan of Care Treatment,Training & Education: Yes Patient would benefit from OT for education, treatment and training to promote independence in ADL's, mobility, safety and/or upper extremity function for ADL's. Plan of Care: ADL Retraining, Caregiver Training, Functional Mobility, Group Exercise/Act as Ind, UE Funct Exercise/Act, W/C Management Training Treatment Duration: Nov 03, 2021 Frequency: 3 times per week (3-5x/week) Estimated Hrs Per Day: .25 hour per day Rehab Potential: Poor Time/GCodes Start Time: 14:35 Stop Time: 14:45 Total Time Billed (hr/min): 10 Billed Treatment Time 1 visit Valerie Tillman OT Oct 24, 2021 14:58
--- NOTE | 2021-10-24 15:32 | Progress Note ---
Subjective Date Seen by a Provider: Oct 24, 2021 Time Seen by a Provider: 15:00 Subjective/Events-last exam Patient seen with Dr. Babcock. Patient shakes his head yes when asked if he has abdominal pain. Reports upper abdomen. Having dark brown to black emesis in basin. Objective Exam Vital Signs Date Time Temp Pulse Resp B/P (MAP) Pulse Ox O2 Delivery O2 Flow Rate FiO2 10/24/21 14:46 95 Nasal Cannula 3.00 10/24/21 11:49 36.4 79 18 214/98 (136) 94 Nasal Cannula 3.00 10/24/21 08:34 36.4 73 19 206/95 (132) 96 Nasal Cannula 3.00 10/24/21 08:31 Nasal Cannula 3.00 10/24/21 08:23 94 Nasal Cannula 3.00 10/24/21 03:46 36.6 77 20 156/84 (108) 95 Nasal Cannula 3.00 10/24/21 03:00 94 Nasal Cannula 3.00 10/23/21 23:04 37.1 81 20 155/72 (99) 92 Nasal Cannula 3.00 10/23/21 20:54 80 127/66 (86) 10/23/21 20:11 115/63 (80) 10/23/21 20:10 Nasal Cannula 3.00 10/23/21 20:04 94 Nasal Cannula 3.00 10/23/21 19:49 79 20 100/50 (67) 96 Nasal Cannula 3.00 10/23/21 19:44 36.3 82 20 91/50 (64) 93 Nasal Cannula 3.00 10/23/21 16:04 37.0 92 18 136/93 (107) 94 Nasal Cannula 3.00 I & O 10/24/21 07:00 Intake Total 1740 ml Output Total 1200 ml Balance 540 ml Capillary Refill : Less Than 3 Seconds General Appearance: No Apparent Distress, WD/WN, Obese Neck: Normal Inspection, Supple Respiratory: No Accessory Muscle Use, No Respiratory Distress Gastrointestinal: normal bowel sounds, soft, tenderness (Epigastric) Neurologic/Psychiatric: Alert Skin: Normal Color, Warm/Dry Results Lab Laboratory Tests 10/23/21 15:43: Glucometer 239H 10/23/21 19:55: Glucometer 206H 10/24/21 05:26: Glucometer 126H 10/24/21 05:58: White Blood Count 10.5, Red Blood Count 4.34, Hemoglobin 12.5L, Hematocrit 39L, Mean Corpuscular Volume 89, Mean Corpuscular Hemoglobin 29, Mean Corpuscular Hemoglobin Concent 32, Red Cell Distribution Width 13.7, Platelet Count 190, Mean Platelet Volume 9.8, Immature Granulocyte % (Auto) 0, Neutrophils (%) (Auto) 67, Lymphocytes (%) (Auto) 22, Monocytes (%) (Auto) 10, Eosinophils (%) (Auto) 1, Basophils (%) (Auto) 0, Neutrophils # (Auto) 7.0, Lymphocytes # (Auto) 2.3, Monocytes # (Auto) 1.1H, Eosinophils # (Auto) 0.1, Basophils # (Auto) 0.0, Immature Granulocyte # (Auto) 0.0, Sodium Level 136, Potassium Level 3.6, Chloride Level 98, Carbon Dioxide Level 27, Anion Gap 11, Blood Urea Nitrogen 48H, Creatinine 1.65H, Estimat Glomerular Filtration Rate 43, BUN/Creatinine Ratio 29, Glucose Level 143H, Calcium Level 8.2L 10/24/21 11:10: Glucometer 150H Microbiology 10/21/21 Urine Culture - Preliminary, Resulted Escherichia coli Ivanna parapsilosis Enterococcus faecium Testing In Progress 10/21/21 Blood Culture - Preliminary, Resulted No growth Assessment/Plan Assessment/Plan Assess & Plan/Chief Complaint A 76-year-old male with nausea as well as hematemesis, epigastric pain VSS Hgb 12.5 Will proceed with EGD tomorrow Continue PUD prophylaxis MEHNAZ WIGGINS PACKER SAUSAGE AND WIENER Oct 24, 2021 15:32
[2021-10-24] MEDS: ENOXAPARIN 40 MG/0.4 ML (LOVENOX) SYR SQ SCH (16:42)
[2021-10-24] MEDS: ONDANSETRON 4 MG/2 ML (SDV) Z0FRAN IV PRN (16:42)
--- NOTE | 2021-10-24 17:42 | Progress Note-Pre Operative ---
Pre-Operative Progress Note H&P Reviewed The H&P was reviewed, patient examined and no changes noted. Date Seen by Provider: Oct 24, 2021 Time Seen by Provider: 17:45 Date H&P Reviewed: Oct 24, 2021 Time H&P Reviewed: 17:45 Pre-Operative Diagnosis: upper GI bleed RICARDO SAINI MD Oct 24, 2021 17:42
--- NOTE | 2021-10-24 18:08 | Progress Note - Hospitalist ---
Subjective HPI/CC On Admission Date Seen by Provider: Oct 24, 2021 Time Seen by Provider: 11:15 Dick Ann is a 76 year old male with PMH HTN, HLD, T2DM, CKD, chronic brady, recurrent UTIs due to MRD-E coli, who was brought in due to shakiness. He feels weak and tired. He denies pain. He denies shortness of breath. He denies cough. He denies dysuria. He denies nausea and vomiting. He denies diarrhea. He resides at [facility]. Subjective/Events-last exam He continues to have abdominal pain. He is still nauseous. He had a couple bowel movements yesterday. He has no other complaints. Objective Exam Vital Signs Vital Signs Date Time Temp Pulse Resp B/P (MAP) Pulse Ox O2 Delivery O2 Flow Rate FiO2 10/24/21 16:00 36.7 78 18 180/80 (113) 94 Nasal Cannula 3.00 10/23/21 07:45 32 Capillary Refill : Less Than 3 Seconds General Appearance: No Apparent Distress, Obese Respiratory: Lungs Clear, No Respiratory Distress Cardiovascular: Regular Rate, Rhythm, No Murmur Gastrointestinal: Soft, Abnormal Bowel Sounds (hypoactive), Distended Extremity: Normal Inspection, Pedal Edema Neurologic/Psychiatric: Alert, Depressed Affect, Motor Weakness Skin: Normal Color, Warm/Dry Results/Procedures Lab Laboratory Tests 10/24/21 05:58 Patient resulted labs reviewed. Imaging: Reviewed Imaging Report Assessment/Plan Assessment and Plan Assess & Plan/Chief Complaint E coli UTI History of MDR-E coli Multiple prior urine cultures with ESBL E coli UA consistent with UTI Urine culture with E coli, awaiting susceptibilities Blood cultures with no growth Continue Meropenem Nausea and vomiting Abdominal pain Coffee ground emesis KUB ordered, showed gastric distension Surgery consulted, planning for EGD tomorrow IV PPI BID NPO at midnight IV fluids T2DM with hypoglycemia Blood sugar 67 on arrival Holding long acting insulin Sliding scale insulin LILIANA on CKD IV fluids HTN HLD CAD Continue home meds Obesity Clinically significant, no acute management needs DVT prophylaxis: Lovenox Diagnosis/Problems Diagnosis/Problems (1) E. coli UTI (urinary tract infection) Status: Acute (2) History of ESBL E. coli infection Status: Chronic (3) Acute kidney injury superimposed on chronic kidney disease Status: Acute (4) T2DM (type 2 diabetes mellitus) Status: Acute Qualifiers: Diabetes mellitus penitentiary insulin use: with penitentiary use Diabetes mellitus complication status: with hypoglycemia Diabetes mellitus complication detail: without coma Qualified Codes: E11.649 - Type 2 diabetes mellitus with hypoglycemia without coma; Z79.4 - terminologist (current) use of insulin (5) Obesity Status: Chronic (6) Coffee ground emesis Status: Acute (7) Gastric distention Status: Acute SAMI LAM MD Oct 24, 2021 18:08
[2021-10-24] MEDS: FAMOTIDINE 20 MG (PEPCID) TABLET PO SCH (20:20)
[2021-10-24] MEDS: traZODone 150 MG (DESYREL) TABLET PO SCH (20:20)
[2021-10-24] MEDS: AtorvaSTATin TABLET 10 MG TABLET PO SCH (20:21)
[2021-10-25] VITALS (11 sets, daily range): BP systolic 80–175; BP diastolic 20–90
[2021-10-25] MEDS: MEROPENEM 500 MG/NS 100 ML IVPB IV SCH ×6 (01:45→17:53)
[2021-10-25] MEDS: ONDANSETRON 4 MG/2 ML (SDV) Z0FRAN IV PRN (01:47)
[2021-10-25] MEDS: RT-ALBUTEROL/IPRATROPIUM 3 ML (DUONEB) VIAL INH SCH ×4 (02:34→21:06)
[2021-10-25] MEDS: inSUlin ASPART (NovoLOG) 1 UNIT/0.01 ML (CHARGE PER UNIT) SC SCH ×4 (05:35→20:19)
[2021-10-25] MEDS: BETHANECHOL 25 MG (URECHOLINE) TAB PO SCH ×4 (05:36→20:35)
[2021-10-25 08:34] LABS: HEMOGLOBIN 12.9 g/dL (13.3-17.7)
[2021-10-25 08:53] LABS: CREATININE SERUM 1.09 MG/DL (0.60-1.30); POTASSIUM 3.5 MMOL/L (3.6-5.0)
[2021-10-25] MEDS: meTOprolol TARTRATE 50 MG (LOPRESSOR) TAB PO SCH ×2 (09:40→20:32)
[2021-10-25] MEDS: amLODIPine 5 MG (NORVASC) TAB PO SCH (09:40)
[2021-10-25] MEDS: FUROSEMIDE 20 MG (LASIX) TAB PO SCH (09:40)
[2021-10-25] MEDS: ISOSORBIDE MONONITRATE 30 MG (IMDUR) TAB PO SCH (09:40)
[2021-10-25] MEDS: NS IV 1000 ML 1,000 ML IV SCH ×3 (09:40→23:04)
[2021-10-25] MEDS: PANTOPRAZOLE 40 MG (PROTONIX) VIAL IV SCH ×2 (09:40→20:31)
[2021-10-25] MEDS: polyethylene glycoL POWDER 17 GM (MIRALAX) PACK PO SCH (09:41)
[2021-10-25] MEDS: MONTELUKAST 10 MG (SINGULAIR) TAB PO SCH (09:41)
[2021-10-25] MEDS: DOCUSATE SODIUM 100 MG (COLACE) CAP PO SCH ×2 (09:41→20:31)
[2021-10-25] MEDS: risperiDONE 1 MG (RisperDAL) TAB PO SCH ×2 (09:41→20:32)
[2021-10-25] MEDS: buPROPion SR 150 MG (WELLBUTRIN SR) TAB PO SCH (09:42)
--- NOTE | 2021-10-25 10:28 | Physical Therapy Daily Note ---
PT Daily Note-Current Subjective Patient lying supine in bed upon PT arrival, agreeable to treatment. Reports he would like a drink, nurse reports he is NPO until EGD later today. Mental Status Patient Orientation: Person Attachments: Oxygen, Shafer Catheter, IV Transfers SCALE: Activities may be completed with or without assistive devices. 3-Unqexecdai-hnblvxb completes the activity by him/herself with no assistance from a helper. 5-Set-up or Clean-up Assistance-helper sets up or cleans up; patient completes activity. [place] assists only prior to or following the activity. 4-Supervision or Touching Assistance-helper provides verbal cues and/or touching/steadying and/or contact guard assistance as patient completes activity. Assistance may be provided throughout the activity or intermittently. 3-Partial/Moderate Assistance-helper does LESS THAN HALF the effort. [place] lifts, holds or supports trunk or limbs, but provides less than half the effort. 2-Substantial/Maximal Assistance-helper does MORE THAN HALF the effort. [place] lifts or holds trunk or limbs and provides more than half the effort. 7-Kkxmkqxga-dktnth does ALL the effort. Patient does none of the effort to complete the activity. Or, the assistance of 2 or more helpers is required for the patient to complete the activity. If activity was not attempted, code reason: 7-Patient Refused. 9-Not Applicable-not attempted and the patient did not perform the activity before the current illness, exacerbation or injury. 10-Not Attempted due to Environmental Limitations-(lack of equipment, weather restraints, etc.). 88-Not Attempted due to Medical Conditions or Safety Concerns. Roll Left & Right (QC): 2 Sit to Lying (QC): 2 Lying to Sitting/Side of Bed(Q: 2 Sit to Stand (QC): 2 Chair/Sia-bi-Udytt Xfer(QC): 3 Gait Training Does the Patient Walk?: No and Walking Goal IS indicated Exercises Seated Therapy Exercises: Ankle pumps, Long arc quads, Hip flexion Seated Reps: 10 Assessment Current Status: Fair Progress Patient tolerated treatment fair. Patient vomits minimally immediately upon sitting up to edge of bed. Nurse notified. Patient performed all bed mobility and transfers with mod/max assistance. Patient performs sit to stand and SPT with FWW with mod A. Patient performs LE therapeutic exercise as listed above. Patient in chair post treatment with all needs met, nursing notified, call light in hand. PT Correction Goals Correction Goals PT Proof Passer Goals Time Frame: Oct 31, 2021 Roll Left & Right (QC): 3 Sit to Lying (QC): 3 Lying-Sitting on Side/Bed(QC): 3 Sit to Stand (QC): 3 Chair/Osa-mi-Laqpv Xfer(QC): 3 PT Plan Treatment/Plan Treatment Plan: Continue Plan of Care Treatment Plan: Bed Mobility, Education, Functional Activity Mehdi, Functional Strength, Gait, Safety, Therapeutic Exercise, Transfers Treatment Duration: Oct 31, 2021 Frequency: 6 times per week Estimated Hrs Per Day: .25 hour per day Patient and/or Family Agrees t: Yes Safety Risks/Education Patient Education: Transfer Techniques Teaching Recipient: Patient Teaching Methods: Demonstration, Discussion Response to Teaching: Reinforcement Needed Time/GCodes Time In: 953 Time Out: 1018 Total Billed Treatment Time: 25 Total Billed Treatment Visit, Romy DOOLEY JOHN A PT Oct 25, 2021 10:28
[2021-10-25] MEDS: FLUTICASONE/VILANTEROL 100 MCG 14'S (BREO) IH SCH (10:32)
[2021-10-25] MEDS: UMECLIDINIUM BROMIDE (INCRUSE ELLIPTA) 7'S IH SCH (10:33)
--- NOTE | 2021-10-25 11:36 | Occupational Ther Daily Note ---
OT Current Status-Daily Note Subjective Pt sleeping in recliner. Difficult to wake and keep pt awake. Nrsg in room stating that pt has been like this all morning. Mental Status/Objective Patient Orientation: Person, Unable to Assess Attachments: Shafer Catheter, IV ADL-Treatment Therapy Code Descriptions/Definitions Functional [place] Measure: 0=Not Assessed/NA 4=Minimal Assistance 1=Total Assistance 5=Supervision or Setup 2=Maximal Assistance 6=Modified [place] 3=Moderate Assistance 7=Complete IndependenceSCALE: Activities may be completed with or without assistive devices. 2-Vcjoydahfm-jnfzyov completes the activity by him/herself with no assistance from a helper. 5-Set-up or Clean-up Assistance-helper sets up or cleans up; patient completes activity. [place] assists only prior to or following the activity. 4-Supervision or Touching Assistance-helper provides verbal cues and/or touching/steadying and/or contact guard assistance as patient completes activity. Assistance may be provided throughout the activity or intermittently. 3-Partial/Moderate Assistance-helper does LESS THAN HALF the effort. [place] lifts, holds or supports trunk or limbs, but provides less than half the effort. 2-Substantial/Maximal Assistance-helper does MORE THAN HALF the effort. [place] lifts or holds trunk or limbs and provides more than half the effort. 7-Yllriwasx-wbincc does ALL the effort. Patient does none of the effort to complete the activity. Or, the assistance of 2 or more helpers is required for the patient to complete the activity. If activity was not attempted, code reason: 7-Patient Refused. 9-Not Applicable-not attempted and the patient did not perform the activity before the current illness, exacerbation or injury. 10-Not Attempted due to Environmental Limitations-(lack of equipment, weather restraints, etc.). 88-Not Attempted due to Medical Conditions or Safety Concerns. Other Treatment Attempted to wake and keep pt awake multiple times. Pt would open eyes and look at VICKERS then fall back asleep again. Light resistance theraband left in pt's room to work on when pt is less lethargic. Call light/phone in reach. Nrsg in room. All needs met at end of session. OT Half-Way Goals Cloth Dyeing Range Tender Goals Time Frame: Nov 03, 2021 Eating (QC): 5 Oral Hygiene (QC): 4 Toileting Hygiene (QC): 3 Upper Body Dressing (QC): 3 Lower Body Dressing (QC): 3 1=Demonstrate adherence to instructed precautions during ADL tasks. 2=Patient will verbalize/demonstrate understanding of assistive devices/modifications for ADL. 3=Patient will improve strength/tolerance for activity to enable patient to perform ADL's. OT Education/Plan Problem List/Assessment Assessment: Decreased Activ Tolerance, Impaired Self-Care Skills Discharge Recommendations Plan/Recommendations: Continue POC Treatment Plan/Plan of Care Patient would benefit from OT for education, treatment and training to promote independence in ADL's, mobility, safety and/or upper extremity function for ADL's. Plan of Care: ADL Retraining, Caregiver Training, Functional Mobility, Group Exercise/Act as Ind, UE Funct Exercise/Act, W/C Management Training Treatment Duration: Nov 03, 2021 Frequency: 3 times per week (3-5x/week) Estimated Hrs Per Day: .25 hour per day Rehab Potential: Poor Time/GCodes Start Time: 10:44 Stop Time: 10:52 Total Time Billed (hr/min): 8 Billed Treatment Time 1 visit-FA 1 (8 min) SASHA CANTRELL Oct 25, 2021 11:36
[2021-10-25] MEDS: hydrALAZINE (APESOLINE) 20 MG/ML VIAL IV PRN ×2 (11:38→23:03)
[2021-10-25] MEDS ORDERED: LACTATED RINGERS 1,000 ML IV STA (12:42)
[2021-10-25] MEDS ORDERED: LIDOCAINE JELLY 2% 6 ML SYRINGE MM PRN (12:45)
[2021-10-25] MEDS ORDERED: HURRICAINE EXT TUBE (BENZOCAINE) XX PRN (12:45)
[2021-10-25] MEDS ORDERED: proPOfol 200 MG/20 ML (DIPRIVAN) VIAL IV ONE (12:55)
[2021-10-25] MEDS ORDERED: MIDAZOLAM 2 MG/2 ML (VERSED) VIAL ONE (12:55)
[2021-10-25] MEDS ORDERED: HURRICAINE EXT TUBE (BENZOCAINE) ONE (13:10)
[2021-10-25] MEDS ORDERED: LIDOCAINE JELLY 2% 6 ML SYRINGE ONE (13:10)
[2021-10-25] MEDS ORDERED: FLUCONAZOLE 200 MG/100 ML 100 ML IV ONE (14:00)
--- NOTE | 2021-10-25 15:57 | Progress Note - Hospitalist ---
Subjective HPI/CC On Admission Date Seen by Provider: Oct 25, 2021 Time Seen by Provider: 10:15 Dick Ann is a 76 year old male with PMH HTN, HLD, T2DM, CKD, chronic brady, recurrent UTIs due to MRD-E coli, who was brought in due to shakiness. He feels weak and tired. He denies pain. He denies shortness of breath. He denies cough. He denies dysuria. He denies nausea and vomiting. He denies diarrhea. He resides at [facility]. Subjective/Events-last exam He is not nauseous. He has a bit of abdominal pain. He has no other complaints. Objective Exam Vital Signs Vital Signs Date Time Temp Pulse Resp B/P (MAP) Pulse Ox O2 Delivery O2 Flow Rate FiO2 10/25/21 15:12 94 Nasal Cannula 3.00 10/25/21 14:37 36.4 73 20 161/73 (102) 10/23/21 07:45 32 Capillary Refill : Less Than 3 Seconds General Appearance: No Apparent Distress, Obese Respiratory: Lungs Clear, No Respiratory Distress Cardiovascular: Regular Rate, Rhythm, No Murmur Gastrointestinal: Normal Bowel Sounds, Soft; No Distended; Tenderness Extremity: Normal Inspection, Pedal Edema Neurologic/Psychiatric: Alert, Normal Mood/Affect Skin: Normal Color, Warm/Dry Results/Procedures Lab Laboratory Tests 10/25/21 08:20 Patient resulted labs reviewed. Imaging: Reviewed Imaging Report Assessment/Plan Assessment and Plan Assess & Plan/Chief Complaint ESBL E coli UTI History of ESBL E coli Multiple prior urine cultures with ESBL E coli UA consistent with UTI Urine culture with E coli, ESBL Blood cultures with no growth Continue Meropenem Nausea and vomiting Abdominal pain Coffee ground emesis KUB ordered, showed gastric distension Surgery consulted, planning for EGD today PPI IV fluids T2DM with hypoglycemia Blood sugar 67 on arrival Holding long acting insulin Sliding scale insulin LILIANA on CKD IV fluids HTN HLD CAD Continue home meds Obesity Clinically significant, no acute management needs DVT prophylaxis: Lovenox Diagnosis/Problems Diagnosis/Problems (1) E. coli UTI (urinary tract infection) Status: Acute (2) History of ESBL E. coli infection Status: Chronic (3) Acute kidney injury superimposed on chronic kidney disease Status: Acute (4) T2DM (type 2 diabetes mellitus) Status: Acute Qualifiers: Diabetes mellitus senior living insulin use: with dedicated intermodal truck driver use Diabetes mellitus complication status: with hypoglycemia Diabetes mellitus complication detail: without coma Qualified Codes: E11.649 - Type 2 diabetes mellitus with hypoglycemia without coma; Z79.4 - termite helper (current) use of insulin (5) Obesity Status: Chronic (6) Coffee ground emesis Status: Acute (7) Gastric distention Status: Acute SAMI LAM MD Oct 25, 2021 15:57
[2021-10-25] MEDS: ENOXAPARIN 40 MG/0.4 ML (LOVENOX) SYR SQ SCH (16:11)
[2021-10-25] MEDS: METOCLOPRAMIDE INJ 10 MG/2 ML (REGLAN) IVP SCH ×2 (17:53→23:03)
[2021-10-25] MEDS: traZODone 150 MG (DESYREL) TABLET PO SCH (20:31)
[2021-10-25] MEDS: AtorvaSTATin TABLET 10 MG TABLET PO SCH (20:32)
[2021-10-25] MEDS: FAMOTIDINE 20 MG (PEPCID) TABLET PO SCH (20:33)
--- NOTE | 2021-10-26 00:13 | OPERATIVE REPORT ---
DATE OF SERVICE: 10/25/2021 ATTENDING PRIMARY CARE PHYSICIAN: Bhaskar Alcantara MD ADMITTING PHYSICIAN: Dr. Jessi Mullins. PREOPERATIVE DIAGNOSES: Persistent nausea and vomiting, hematemesis. POSTOPERATIVE DIAGNOSES: Esophageal candidiasis, severe reflux esophagitis between Heaters grade C or D with an esophageal ulcer, no active bleeding. A small hiatal hernia 2 cm in size, retained food substance within the stomach consistent with diabetic gastroparesis. Moderate to severe gastritis. No distal obstructions. PROCEDURE: EGD with biopsies and brushings. SURGEON: Ricardo Saini MD ANESTHESIA: Monitored anesthesia care. ESTIMATED BLOOD LOSS: Minimal. FINDINGS: Same as postop diagnoses. DISPOSITION: The patient tolerated the procedure well. INDICATIONS: The patient is a 76-year-old male who was admitted for fatigue, nausea and vomiting, dehydration, urinary tract infection. He does have a multitude of medical problems including diabetes. He is a current resident of an assisted living community. He was found to have elevated blood sugars upon admission as well. After admission, he continued to have episodes of nausea and vomiting of undigested food particulate matter as well as dark substance; however, no hematemesis. DESCRIPTION OF PROCEDURE: The patient was brought to the endoscopy suite, laid in the left lateral decubitus position. After adequate IV pain and sedative medications and monitored anesthesia care, the mouthpiece was applied. The endoscope was placed in the mouth, visualizing the pharynx and hypopharyngeal region. Vocal cords, epiglottis and vallecula identified and appeared to be normal. The endoscope was then gently intubated the esophageal opening and esophagus insufflated. The endoscope was then advanced through the first, second and third portions of esophagus and throughout the esophagus was white plaquish material consistent with esophageal candidiasis. This was sent for brushings for yeast cultures. At the level of the GE junction, a severe reflux esophagitis between Heaters grade C to D identified as well as an esophageal ulceration with an overlying fibrin clot, no active bleeding. A biopsy was taken of the GE junction with forceps with visualization of good hemostasis. The endoscope was then advanced in the stomach and endoscope retroflexed, visualizing significant amounts of retained food substance within the stomach, likely consistent with a diabetic gastroparesis and slow transit throughout the gastrointestinal system, especially in the stomach. A 2 cm small hiatal hernia was also identified. There was a moderate to severe gastritis and a biopsy was taken of the antrum to rule out H. pylori. The endoscope was then advanced through the pylorus and the first and second portions of the duodenum, which appeared normal with no distal obstructions. The endoscope was then slowly withdrawn while taking a second look and suctioning of residual air with no additional findings. The patient tolerated the procedure well. We will empirically start him on Diflucan for the esophageal candidiasis as well as Reglan on a scheduled basis in hopes of increasing gastric motility. We will also again start with clear liquids and slowly advance as tolerated if he is able to. He will also need to proceed with medical management again with tight glycemic control, weight loss as well as frequent ambulation; however, at this time, his body mass index is somewhat prohibitive of him proceeding with resolution of these issues. If he does not improve with maximal medical therapy, he may be a candidate for a gastric pacemaker implantation at [facility]. Job ID: [id number] DocumentID: [id number] Dictated Date: 10/25/2021 13:40:45 Crude Oil Treater Date: 10/26/2021 00:12:30 Dictated By: RICARDO SAINI MD
[2021-10-26] MEDS: MEROPENEM 500 MG/NS 100 ML IVPB IV SCH ×4 (02:10→09:21)
[2021-10-26] MEDS: RT-ALBUTEROL/IPRATROPIUM 3 ML (DUONEB) VIAL INH SCH ×4 (02:52→23:10)
[2021-10-26 03:27] VITALS: BP_SYST 155; BP_SYST 178; BP_DIAS 73; BP_DIAS 85
[2021-10-26] MEDS: inSUlin ASPART (NovoLOG) 1 UNIT/0.01 ML (CHARGE PER UNIT) SC SCH ×4 (05:21→20:30)
[2021-10-26] MEDS: BETHANECHOL 25 MG (URECHOLINE) TAB PO SCH ×4 (05:48→20:27)
[2021-10-26] MEDS: METOCLOPRAMIDE INJ 10 MG/2 ML (REGLAN) IVP SCH ×2 (05:48→12:04)
[2021-10-26 07:56] VITALS: BP 186/83
[2021-10-26] MEDS: UMECLIDINIUM BROMIDE (INCRUSE ELLIPTA) 7'S IH SCH (08:36)
[2021-10-26] MEDS: FLUTICASONE/VILANTEROL 100 MCG 14'S (BREO) IH SCH (08:36)
[2021-10-26] MEDS ORDERED: FLUCONAZOLE 100 MG/50 ML 50 ML IV SCH (09:00)
[2021-10-26] MEDS: PANTOPRAZOLE 40 MG (PROTONIX) VIAL IV SCH (09:17)
[2021-10-26] MEDS: amLODIPine 5 MG (NORVASC) TAB PO SCH (09:20)
[2021-10-26] MEDS: FUROSEMIDE 20 MG (LASIX) TAB PO SCH (09:20)
[2021-10-26] MEDS: MONTELUKAST 10 MG (SINGULAIR) TAB PO SCH (09:20)
[2021-10-26] MEDS: DOCUSATE SODIUM 100 MG (COLACE) CAP PO SCH ×2 (09:20→20:27)
[2021-10-26] MEDS: meTOprolol TARTRATE 50 MG (LOPRESSOR) TAB PO SCH ×2 (09:20→20:27)
[2021-10-26] MEDS: ISOSORBIDE MONONITRATE 30 MG (IMDUR) TAB PO SCH (09:20)
[2021-10-26] MEDS: risperiDONE 1 MG (RisperDAL) TAB PO SCH ×2 (09:20→20:27)
[2021-10-26] MEDS: buPROPion SR 150 MG (WELLBUTRIN SR) TAB PO SCH (09:20)
[2021-10-26] MEDS: polyethylene glycoL POWDER 17 GM (MIRALAX) PACK PO SCH (09:22)
--- NOTE | 2021-10-26 09:23 | Anesthesia-General Post-Op ---
MAC Patient Condition Mental Status/LOC: Same as Preop Cardiovascular: Satisfactory Nausea/Vomiting: Absent Respiratory: Satisfactory Pain: Controlled Complications: Absent Post Op Complications Complications None Follow Up Care/Instructions Patient Instructions None needed. Anesthesiology Discharge Order Discharge Order Patient is doing well, no complaints, stable vital signs, no apparent adverse anesthesia problems. No complications reported per nursing. TERESA WEN CRNA Oct 26, 2021 09:23
[2021-10-26] MEDS: NS IV 1000 ML 1,000 ML IV SCH ×2 (09:24→20:25)
--- NOTE | 2021-10-26 11:00 | Physical Therapy Daily Note ---
PT Daily Note-Current Subjective Patient in bed pre tx, agrees to PT, has no complaints of pain, still nauseated. Appearance Patient in recliner post tx with nurse call, phone, tray, all needs met. Mental Status Patient Orientation: Person, Place, Situation Attachments: Oxygen, Shafer Catheter, IV Transfers SCALE: Activities may be completed with or without assistive devices. 2-Mfekwmlyxl-sqddyqi completes the activity by him/herself with no assistance from a helper. 5-Set-up or Clean-up Assistance-helper sets up or cleans up; patient completes activity. [place] assists only prior to or following the activity. 4-Supervision or Touching Assistance-helper provides verbal cues and/or touching/steadying and/or contact guard assistance as patient completes activity. Assistance may be provided throughout the activity or intermittently. 3-Partial/Moderate Assistance-helper does LESS THAN HALF the effort. [place] lifts, holds or supports trunk or limbs, but provides less than half the effort. 2-Substantial/Maximal Assistance-helper does MORE THAN HALF the effort. [place] lifts or holds trunk or limbs and provides more than half the effort. 0-Dvrsfsjpw-zwaooz does ALL the effort. Patient does none of the effort to complete the activity. Or, the assistance of 2 or more helpers is required for the patient to complete the activity. If activity was not attempted, code reason: 7-Patient Refused. 9-Not Applicable-not attempted and the patient did not perform the activity before the current illness, exacerbation or injury. 10-Not Attempted due to Environmental Limitations-(lack of equipment, weather restraints, etc.). 88-Not Attempted due to Medical Conditions or Safety Concerns. Roll Left & Right (QC): 3 Lying to Sitting/Side of Bed(Q: 2 Sit to Stand (QC): 3 Chair/Blo-oa-Xnnpw Xfer(QC): 3 Patient stood once with min assist and attempted to ambulate to the recliner but only got about 1 step before needing to sit back down, patient could not explain why he needed to sit back down. Patient stood again with min assist and ambulates about 3' to the recliner with min assist. Exercises Seated Therapy Exercises: Ankle pumps, Long arc quads Seated Reps: 20 Treatments bed mobility and transfers, ambulation, LE exercise Assessment Current Status: Fair Progress very slow progress with functional mobility PT Apparel Pattern Maker Goals Apparel Pattern Maker Goals PT Correction Goals Time Frame: Oct 31, 2021 Roll Left & Right (QC): 3 Sit to Lying (QC): 3 Lying-Sitting on Side/Bed(QC): 3 Sit to Stand (QC): 3 Chair/Yvz-uf-Nsmct Xfer(QC): 3 PT Plan Problem List Problem List: Activity Tolerance, Functional Strength, Safety, Balance, Gait, Transfer, Bed Mobility, ROM Treatment/Plan Treatment Plan: Continue Plan of Care Treatment Plan: Bed Mobility, Education, Functional Activity Mehdi, Functional Strength, Gait, Safety, Therapeutic Exercise, Transfers Treatment Duration: Oct 31, 2021 Frequency: 6 times per week Estimated Hrs Per Day: .25 hour per day Patient and/or Family Agrees t: Yes Safety Risks/Education Patient Education: Gait Training, Transfer Techniques, Correct Positioning, Safety Issues Teaching Recipient: Patient Teaching Methods: Demonstration, Discussion Response to Teaching: Reinforcement Needed Time/GCodes Time In: 1018 Time Out: 1032 Total Billed Treatment Time: 14 Total Billed Treatment 1 visit FA PATSY WOLFF PT Oct 26, 2021 11:00
[2021-10-26 11:21] VITALS: BP 132/63
--- NOTE | 2021-10-26 11:39 | Occupational Ther Daily Note ---
OT Current Status-Daily Note Subjective Pt alert, lying in bed. Pt agrees to therapy. Fatigues quickly and weakness. Mental Status/Objective Patient Orientation: Person ADL-Treatment Therapy Code Descriptions/Definitions Functional [place] Measure: 0=Not Assessed/NA 4=Minimal Assistance 1=Total Assistance 5=Supervision or Setup 2=Maximal Assistance 6=Modified [place] 3=Moderate Assistance 7=Complete IndependenceSCALE: Activities may be completed with or without assistive devices. 8-Qiwmtggnwt-ftfkxga completes the activity by him/herself with no assistance from a helper. 5-Set-up or Clean-up Assistance-helper sets up or cleans up; patient completes activity. [place] assists only prior to or following the activity. 4-Supervision or Touching Assistance-helper provides verbal cues and/or touching/steadying and/or contact guard assistance as patient completes activity. Assistance may be provided throughout the activity or intermittently. 3-Partial/Moderate Assistance-helper does LESS THAN HALF the effort. [place] lifts, holds or supports trunk or limbs, but provides less than half the effort. 2-Substantial/Maximal Assistance-helper does MORE THAN HALF the effort. [place] lifts or holds trunk or limbs and provides more than half the effort. 8-Ekcjroiag-tdhuww does ALL the effort. Patient does none of the effort to comp lete the activity. Or, the assistance of 2 or more helpers is required for the patient to complete the activity. If activity was not attempted, code reason: 7-Patient Refused. 9-Not Applicable-not attempted and the patient did not perform the activity before the current illness, exacerbation or injury. 10-Not Attempted due to Environmental Limitations-(lack of equipment, weather restraints, etc.). 88-Not Attempted due to Medical Conditions or Safety Concerns. Eating (QC): 5 Other Treatment Pt attempted to stand once with min assist and attempted to ambulate to the recliner but only got about 1 step before needing to sit back down, patient could not explain why he needed to sit back down. Patient stood again with min assist x2 for safety then ambulated about 3' to the recliner with min assist. Pt washed face after sitting in recliner with cool washcloth. Pt nauseous prior to session. Pt requested apple juice, assist to open then pt able to grasp and bring to mouth to drink. After therapy, pt sitting in recliner with call light/phone in reach. All needs met in room. OT Director Pharmacovigilance Goals Jail Goals Time Frame: Nov 03, 2021 Eating (QC): 5 Oral Hygiene (QC): 4 Toileting Hygiene (QC): 3 Upper Body Dressing (QC): 3 Lower Body Dressing (QC): 3 1=Demonstrate adherence to instructed precautions during ADL tasks. 2=Patient will verbalize/demonstrate understanding of assistive devices/modifications for ADL. 3=Patient will improve strength/tolerance for activity to enable patient to perform ADL's. OT Education/Plan Problem List/Assessment Assessment: Decreased Activ Tolerance, Decreased UE Strength, Impaired Bed Mobility, Impaired Coordination, Impaired Funct Balance, Impaired Self-Care Skills Discharge Recommendations Plan/Recommendations: Continue POC Treatment Plan/Plan of Care Patient would benefit from OT for education, treatment and training to promote independence in ADL's, mobility, safety and/or upper extremity function for ADL's. Plan of Care: ADL Retraining, Caregiver Training, Functional Mobility, Group Exercise/Act as Ind, UE Funct Exercise/Act, W/C Management Training Treatment Duration: Nov 03, 2021 Frequency: 3 times per week (3-5x/week) Estimated Hrs Per Day: .25 hour per day Rehab Potential: Poor Time/GCodes Start Time: 10:18 Stop Time: 10:34 Total Time Billed (hr/min): 16 Billed Treatment Time 1 visit-FA 1 (16 min) SASHA CANTRELL Oct 26, 2021 11:39
[2021-10-26 16:00] VITALS: BP 140/67
[2021-10-26] MEDS ORDERED: fluCOnazole (DIFLUCAN) 100 MG TAB PO NR (16:00)
--- NOTE | 2021-10-26 16:03 | Progress Note - Hospitalist ---
Subjective HPI/CC On Admission Date Seen by Provider: Oct 26, 2021 Time Seen by Provider: 10:00 Dick Ann is a 76 year old male with PMH HTN, HLD, T2DM, CKD, chronic brady, recurrent UTIs due to MRD-E coli, who was brought in due to shakiness. He feels weak and tired. He denies pain. He denies shortness of breath. He denies cough. He denies dysuria. He denies nausea and vomiting. He denies diarrhea. He resides at [facility]. Subjective/Events-last exam He has some nausea and threw up once this morning. He denies pain. He is breathing well. He has no other complaints. Objective Exam Vital Signs Vital Signs Date Time Temp Pulse Resp B/P (MAP) Pulse Ox O2 Delivery O2 Flow Rate FiO2 10/26/21 11:21 36.9 76 22 132/63 (86) 95 Nasal Cannula 3.00 10/23/21 07:45 32 Capillary Refill : Less Than 3 Seconds General Appearance: No Apparent Distress, Obese Respiratory: Lungs Clear, No Respiratory Distress Cardiovascular: Regular Rate, Rhythm, No Murmur Gastrointestinal: Normal Bowel Sounds, Non Tender, Soft Extremity: Normal Inspection, No Pedal Edema Neurologic/Psychiatric: Alert, Normal Mood/Affect Skin: Normal Color, Warm/Dry Results/Procedures Lab Patient resulted labs reviewed. Imaging: Reviewed Imaging Report Assessment/Plan Assessment and Plan Assess & Plan/Chief Complaint ESBL E coli UTI History of ESBL E coli Multiple prior urine cultures with ESBL E coli UA consistent with UTI Urine culture with E coli, ESBL Blood cultures with no growth Continue Meropenem Esophageal candidiasis Esophageal ulcer Gastroparesis Surgery following EGD 10/25 with esophageal candidiasis, ulcer, and retained food in stomach Started on Diflucan Transition to oral Fluconazole Started on Reglan Continue PPI T2DM with hypoglycemia Resume long acting insulin, decreased dose Sliding scale insulin LILIANA on CKD IV fluids HTN HLD CAD Continue home meds Obesity Clinically significant, no acute management needs DVT prophylaxis: Lovenox Diagnosis/Problems Diagnosis/Problems (1) E. coli UTI (urinary tract infection) Status: Acute (2) History of ESBL E. 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
[2021-10-26] MEDS: ENOXAPARIN 40 MG/0.4 ML (LOVENOX) SYR SQ SCH (16:57)
[2021-10-26] MEDS: METOCLOPRAMIDE 5 MG (REGLAN) TAB PO SCH ×2 (16:57→20:27)
[2021-10-26] MEDS: MEROPENEM 500 MG in NS (IVPB) 100 ML IV SCH ×2 (16:57→23:47)
[2021-10-26 17:00] VITALS: BP 140/67
--- NOTE | 2021-10-26 17:37 | Progress Note ---
Subjective Date Seen by a Provider: Oct 26, 2021 Time Seen by a Provider: 17:00 Subjective/Events-last exam appears less episodes nausea/vomiting. clears now and advance slowly. cont PPI. will need continued [facility] medical management. Objective Exam Vital Signs Date Time Temp Pulse Resp B/P (MAP) Pulse Ox O2 Delivery O2 Flow Rate FiO2 10/26/21 17:00 36.6 69 94 32 10/26/21 16:00 36.6 69 20 140/67 (91) 100 Nasal Cannula 3.00 10/26/21 15:58 94 Nasal Cannula 3.00 10/26/21 11:21 36.9 76 22 132/63 (86) 95 Nasal Cannula 3.00 10/26/21 08:37 91 Nasal Cannula 3.00 10/26/21 08:00 Nasal Cannula 3.00 10/26/21 07:56 36.9 89 20 186/83 (117) 94 Nasal Cannula 3.00 10/26/21 03:27 37.0 83 20 155/73 (100) 93 Nasal Cannula 3.00 10/26/21 02:52 92 Nasal Cannula 3.00 10/25/21 23:01 36.7 86 20 175/85 (115) 91 Nasal Cannula 3.00 10/25/21 21:04 93 Nasal Cannula 3.00 10/25/21 20:40 Nasal Cannula 3.00 10/25/21 19:19 37.2 86 20 146/67 (93) 92 Nasal Cannula 3.00 I & O 10/26/21 07:00 Intake Total 3840 ml Output Total 2100 ml Balance 1740 ml Capillary Refill : Less Than 3 Seconds General Appearance: No Apparent Distress HEENT: PERRL/EOMI Neck: Full Range of Motion Respiratory: Decreased Breath Sounds Cardiovascular: Regular Rate, Rhythm Gastrointestinal: normal bowel sounds, non tender, soft Extremity: Normal Capillary Refill Neurologic/Psychiatric: Alert Skin: Normal Color Lymphatic: No Adenopathy Results Lab Laboratory Tests 10/25/21 20:05: Glucometer 162H 10/26/21 05:09: Glucometer 157H 10/26/21 11:20: Glucometer 267H 10/26/21 16:30: Glucometer 120H Microbiology 10/25/21 Fungal Culture 1, Unverified Pending 10/21/21 Urine Culture - Final, Complete Escherichia coli Ivanna parapsilosis Enterococcus faecium Culture In Progress 10/21/21 Blood Culture - Final, Complete No growth Assessment/Plan Assessment/Plan Assess & Plan/Chief Complaint gastroparesis. cont reglan. cont ppi. needs wt loss and [facility] med management. RICARDO SAINI MD Oct 26, 2021 17:36
[2021-10-26] MEDS: traZODone 150 MG (DESYREL) TABLET PO SCH (20:26)
[2021-10-26] MEDS: FAMOTIDINE 20 MG (PEPCID) TABLET PO SCH (20:27)
[2021-10-26] MEDS: AtorvaSTATin TABLET 10 MG TABLET PO SCH (20:27)
[2021-10-26] MEDS: PANTOPRAZOLE 40 MG (PROTONIX) TAB PO SCH (20:27)
[2021-10-26 20:29] VITALS: BP 146/71
[2021-10-27 00:15] VITALS: BP 175/84
[2021-10-27 03:50] VITALS: BP 176/83
[2021-10-27] MEDS: RT-ALBUTEROL/IPRATROPIUM 3 ML (DUONEB) VIAL INH SCH ×2 (03:52→08:42)
[2021-10-27 04:14] VITALS: BP 151/87
[2021-10-27] MEDS: MEROPENEM 500 MG in NS (IVPB) 100 ML IV SCH ×2 (05:39→11:28)
[2021-10-27] MEDS: METOCLOPRAMIDE 5 MG (REGLAN) TAB PO SCH ×2 (05:39→11:31)
[2021-10-27] MEDS: BETHANECHOL 25 MG (URECHOLINE) TAB PO SCH ×2 (05:40→11:31)
[2021-10-27] MEDS: inSUlin ASPART (NovoLOG) 1 UNIT/0.01 ML (CHARGE PER UNIT) SC SCH ×2 (05:48→11:19)
[2021-10-27] MEDS: NS IV 1000 ML 1,000 ML IV SCH (05:59)
[2021-10-27] MEDS: amLODIPine 5 MG (NORVASC) TAB PO SCH (08:03)
[2021-10-27] MEDS: FUROSEMIDE 20 MG (LASIX) TAB PO SCH (08:03)
[2021-10-27] MEDS: MONTELUKAST 10 MG (SINGULAIR) TAB PO SCH (08:03)
[2021-10-27] MEDS: meTOprolol TARTRATE 50 MG (LOPRESSOR) TAB PO SCH (08:03)
[2021-10-27] MEDS: buPROPion SR 150 MG (WELLBUTRIN SR) TAB PO SCH (08:03)
[2021-10-27] MEDS: polyethylene glycoL POWDER 17 GM (MIRALAX) PACK PO SCH (08:03)
[2021-10-27] MEDS: DOCUSATE SODIUM 100 MG (COLACE) CAP PO SCH (08:03)
[2021-10-27] MEDS: ISOSORBIDE MONONITRATE 30 MG (IMDUR) TAB PO SCH (08:04)
[2021-10-27] MEDS: PANTOPRAZOLE 40 MG (PROTONIX) TAB PO SCH (08:04)
[2021-10-27] MEDS: risperiDONE 1 MG (RisperDAL) TAB PO SCH (08:04)
[2021-10-27 08:17] VITALS: BP 163/77
[2021-10-27] MEDS: UMECLIDINIUM BROMIDE (INCRUSE ELLIPTA) 7'S IH SCH (08:42)
[2021-10-27] MEDS: FLUTICASONE/VILANTEROL 100 MCG 14'S (BREO) IH SCH (08:42)
[2021-10-27 08:48] LABS: ABG BASE EXCESS 6.1 MMOL/L (-2.5-2.5); ABG OXYGEN SATURATION 94 % (94-100); ABG PCO2 42 MMHG (35-45); ABG PH 7.46 (7.37-7.43); ABG PO2 60 MMHG (79-93); ABG TCO2 31.4 MMOL/L (21.0-31.0); ALLENS TEST POSITIVE
[2021-10-27 08:49] LABS: INSPIRED O2 3 L; PATIENT TEMP 36.4; VENTILATOR NO
[2021-10-27] MEDS ORDERED: fluCOnazole (DIFLUCAN) 100 MG TAB PO SCH (09:00)
--- NOTE | 2021-10-27 10:19 | Occupational Ther Daily Note ---
OT Current Status-Daily Note Subjective Pt in bed, drinking liquid breakfast. Pt agreeable to OT Tx. ADL-Treatment Therapy Code Descriptions/Definitions Functional [place] Measure: 0=Not Assessed/NA 4=Minimal Assistance 1=Total Assistance 5=Supervision or Setup 2=Maximal Assistance 6=Modified [place] 3=Moderate Assistance 7=Complete IndependenceSCALE: Activities may be completed with or without assistive devices. 3-Enbpgpygho-nodshyh completes the activity by him/herself with no assistance from a helper. 5-Set-up or Clean-up Assistance-helper sets up or cleans up; patient completes activity. [place] assists only prior to or following the activity. 4-Supervision or Touching Assistance-helper provides verbal cues and/or touching /steadying and/or contact guard assistance as patient completes activity. Assistance may be provided throughout the activity or intermittently. 3-Partial/Moderate Assistance-helper does LESS THAN HALF the effort. [place] lifts, holds or supports trunk or limbs, but provides less than half the effort. 2-Substantial/Maximal Assistance-helper does MORE THAN HALF the effort. [place] lifts or holds trunk or limbs and provides more than half the effort. 6-Ifkllrkqi-torncy does ALL the effort. Patient does none of the effort to complete the activity. Or, the assistance of 2 or more helpers is required for the patient to complete the activity. If activity was not attempted, code reason: 7-Patient Refused. 9-Not Applicable-not attempted and the patient did not perform the activity before the current illness, exacerbation or injury. 10-Not Attempted due to Environmental Limitations-(lack of equipment, weather restraints, etc.). 88-Not Attempted due to Medical Conditions or Safety Concerns. Eating (QC): 5 (liquid diet) Other Treatment Pt in bed, leaning towards L. OT educated pt on safe positioning with intake of food/liquid, but pt declined stating he was comfy. Pt agreeable to BUE exercises in order to increase strength and activity tolerance. Exercises attempted with light resistance theraband, but the resistance was too strong for pt. Pt instead completed AROM exercsies BUEs for the following: shoulder flexion, front punch and horizontal abduction, x5 reps each. Post tx, pt in bed, call light in reach and all needs met. Education OT Patient Education: Correct positioning, Energy conservation, Exercise program, Modified ADL techniques, Progress toward Goal/Update tx plan, Purpose of tx/functional activities, Rehab process Teaching Recipient: Patient Teaching Methods: Demonstration Response to Teaching: Return Demonstration, Reinforcement Needed OT Detention Goals Detention Goals Time Frame: Nov 03, 2021 Eating (QC): 5 Oral Hygiene (QC): 4 Toileting Hygiene (QC): 3 Upper Body Dressing (QC): 3 Lower Body Dressing (QC): 3 1=Demonstrate adherence to instructed precautions during ADL tasks. 2=Patient will verbalize/demonstrate understanding of assistive devices/modifications for ADL. 3=Patient will improve strength/tolerance for activity to enable patient to perform ADL's. OT Education/Plan Problem List/Assessment Assessment: Decreased Activ Tolerance, Decreased UE Strength, Impaired Funct Balance, Impaired I ADL's, Impaired Self-Care Skills Discharge Recommendations Plan/Recommendations: Continue POC Treatment Plan/Plan of Care Patient would benefit from OT for education, treatment and training to promote independence in ADL's, mobility, safety and/or upper extremity function for ADL's. Plan of Care: ADL Retraining, Caregiver Training, Functional Mobility, Group Exercise/Act as Ind, UE Funct Exercise/Act, W/C Management Training Treatment Duration: Nov 03, 2021 Frequency: 3 times per week (3-5x/week) Estimated Hrs Per Day: .25 hour per day Rehab Potential: Poor Time/GCodes Start Time: 10:02 Stop Time: 10:10 Total Time Billed (hr/min): 8 Billed Treatment Time 1, EX MINOO ROB OT Oct 27, 2021 10:19
[2021-10-27 11:44] VITALS: BP 143/67
[2021-10-27] MEDS ORDERED: FLUC100T10 PO (12:08)
[2021-10-27] MEDS ORDERED: METO5TAB2 PO (12:08)
[2021-10-27] MEDS ORDERED: PANT40TA52 PO (12:08)
--- NOTE | 2021-10-27 15:03 | Discharge Summary ---
Discharge Summary Hospital Course Problems/Dx: (1) E. coli UTI (urinary tract infection) Status: Acute (2) History of ESBL E. coli infection Status: Chronic (3) Acute kidney injury superimposed on chronic kidney disease Status: Acute (4) T2DM (type 2 diabetes mellitus) Status: Acute Qualifiers: Qualified Codes: E11.649 - Type 2 diabetes mellitus with hypoglycemia without coma; Z79.4 - USP (current) use of insulin (5) Obesity Status: Chronic (6) Coffee ground emesis Status: Acute (7) Gastric distention Status: Acute (8) Esophageal candidiasis Status: Acute (9) Esophageal ulcer Status: Acute Qualifiers: Qualified Codes: K22.11 - Ulcer of esophagus with bleeding (10) Gastroparesis Status: Acute Hospital Course Date of Admission: Oct 21, 2021 at 10:51 Admission Diagnosis : ESBL E coli UTI Family Physician/Provider: Verena Lance MD Date of Discharge: 10/27/21 Discharge Diagnosis: ESBL E coli UTI, esophageal ulcer with bleeding, esophageal candidiasis, gastroparesis Hospital Course: Dick Ann is a 76 year old male with PMH HTN, HLD, T2DM, CKD 3a, chronic brady, recurrent ESBL UTIs, who presented with shakiness and was admitted with ESBL E coli UTI. He was treated with a course of IV Meropenem. His course was complicated by LILIANA on CKD which improved with IV fluids. He also had coffee ground emesis and surgery was consulted for EGD. He was found to have esophageal candidiasis, esophageal ulcer, and retained food in the stomach indicative of gastroparesis. He was started on Fluconazole for esophageal candidiasis. He was started on Protonix for esophageal ulcer. He was started on Reglan for gastroparesis. He is severely debilitated at baseline and is a resident of [facility]. He was discharged back to [facility] in stable condition. He is chronically ill with multiple recent admissions. He might be a good candidate for the palliative bridge program. I encouraged him to discuss this with Dr. Lance. Labs and Pending Lab Test: Laboratory Tests 10/26/21 16:30: Glucometer 120H 10/26/21 20:07: Glucometer 145H 10/27/21 05:47: Glucometer 131H 10/27/21 08:06: Glucometer 131H 10/27/21 08:37: Blood Gas Puncture Site LEFT RADIAL, Blood Gas Patient Temperature 36.4, Arterial Blood pH 7.46H, Arterial Blood Partial Pressure CO2 42, Arterial Blood Partial Pressure O2 60L, Arterial Blood HCO3 30H, Arterial Blood Total CO2 31.4H , Arterial Blood Oxygen Saturation 94, Arterial Blood Base Excess 6.1H, David Test POSITIVE, Blood Gas Ventilator Setting NO, Blood Gas Inspired Oxygen 3 L 10/27/21 11:14: Glucometer 180H Microbiology 10/25/21 Fungal Culture 1, Unverified Pending 10/21/21 Urine Culture - Final, Complete Escherichia coli Ivanna parapsilosis Enterococcus faecium Culture In Progress 10/21/21 Blood Culture - Final, Complete No growth Home Meds Active Metoclopramide HCl 5 Mg Tablet 5 Mg PO ACHS 30 Days Fluconazole 100 Mg Tablet 200 Mg PO DAILY 6 Days Pantoprazole Sodium 40 Mg Tablet.dr 40 Mg PO BID 30 Days Reported Cepacol Sorethroat-Cough Jeyson (Dextromethorphan HBr/B-Sergio) 5 Mg-7.5 Mg Lozenge 1 Each PO EVERY 2 HOURS PRN Nystatin 100,000 Unit/Gram Cream..g. 1 Applic TP TID APPLY TO FOLDS Miralax (Polyethylene Glycol 3350) 17 Gram Powd.pack 17 Gm PO DAILY Amlodipine Besylate 5 Mg Tablet 5 Mg PO DAILY NOTIFY CHARGE NURSE IF SBP>190 OR >100 Bupropion Xl (Bupropion HCl) 150 Mg Tab.er.24h 150 Mg PO DAILY PER VIA [facility] THE STOP DATE ON THIS MEDICATION IS 10-27-2021 Breo Ellipta 100-25 Mcg INH (Fluticasone/Vilanterol) 1 Each Blst.w.dev 1 Ea PO DAILY Imodium A-D (Loperamide HCl) 2 Mg Capsule 2 Mg PO UD PRN MDD 16MG TAKE AFTER EACH LOOSE STOOL Ondansetron Odt (Ondansetron) 4 Mg Tab.rapdis 4 Mg PO Q4H PRN Tessalon Perles (Benzonatate) 100 Mg Capsule 200 Mg PO TID PRN Isosorbide Mononitrate ER (Isosorbide Mononitrate) 30 Mg Tab.er.24h 30 Mg PO DAILY Albuterol Sulfate 2.5 Mg/0.5 Ml Vial.neb 3 Ml NEB Q4H PRN Cholestyramine Packet (Cholestyramine (with Sugar)) 4 Gm Powd.pack 1 Packet PO DAILY PRN Montelukast Sodium 10 Mg Tablet 10 Mg PO DAILY Mucus Relief (Guaifenesin) 600 Mg Tab.er.12h 600 Mg PO QID PRN Bethanechol Chloride 50 Mg Tablet 50 Mg PO QIDACHS Losartan Potassium 50 Mg Tablet 50 Mg PO DAILY Metoprolol Tartrate 50 Mg Tablet 50 Mg PO BID Novolog Flexpen (Insulin Aspart) 300 Units/3 Ml Solution Units SQ TIDAC USE PER SLIDING SCALE: 151-200=2 UNITS 201-250=4 UNITS 251-300=6 UNITS 301-350=8 UNITS 351-400=10 UNITS >400 NOTIFY PCP Potassium Chloride 20 Meq Tablet.er 20 Meq PO DAILY Spiriva Respimat 2.5MCG/ACTUATION (Tiotropium [place]) 4 Gm Mist.inhal 2 Puff IH DAILY Ascorbic Acid 500 Mg Tablet 1,500 Mg PO DAILY Furosemide 20 Mg Tablet 20 Mg PO DAILY Zocor (Simvastatin) 10 Mg Tablet 10 Mg PO HS Tylenol (Acetaminophen) 325 Mg Tablet 650 Mg PO Q4H PRN TAKES 2 (325MG) TABS Trazodone HCl 150 Mg Tablet 150 Mg PO HS Risperidone 2 Mg Tablet 2 Mg PO Q12H Docusate Sodium 100 Mg Capsule 100 Mg PO BID Citalopram HBr (Citalopram Hydrobromide) 20 Mg Tablet 20 Mg PO DAILY Lantus Solostar (Insulin Glargine,Hum.rec.anlog) 100 Unit/1 Ml Insuln.pen 51 Units SQ HS Assessment/Pt Instructions See instructions Discharge Planning: >30 minutes discharge planning Discharge Instructions Discharge Diet: ADA Diet Activity as Tolerated: Yes Consultations Surgery Discharge Physical Examination Vital Signs Vital Signs Date Time Temp Pulse Resp B/P (MAP) Pulse Ox O2 Delivery O2 Flow Rate FiO2 10/27/21 11:44 36.6 71 20 143/67 (92) 92 Nasal Cannula 3.00 10/26/21 17:00 32 General Appearance: No Apparent Distress, Chronically ill, Obese Respiratory: Lungs Clear, No Respiratory Distress Cardiovascular: Regular Rate, Rhythm, No Murmur Gastrointestinal: Normal Bowel Sounds, Soft Extremity: Normal Inspection, No Pedal Edema Skin: Normal Color, Warm/Dry Neurologic/Psychiatric: Alert, Normal Mood/Affect Allergies: Coded Allergies: Penicillins (Unverified Allergy, Mild, HIVES, pt has rec Meropenem in the past, 6/17/22) duloxetine HCl (Verified Allergy, Mild, 11/16/19) Copy Copies To 1: VERENA LANCE MD Discharge Summary Date of Admission Oct 21, 2021 at 10:51 Date of Discharge Discharge Date: Oct 27, 2021 Discharge Time: 14:50 Admission Diagnosis E coli UTI Consults/Procedures Consulations Surgery Procedures EGD/colonoscopy Discharge Diagnosis ESBL E coli UTI Esophageal candidiasis Esophageal ulcer Gastroparesis T2DM with hypoglycemia LILIANA on CKD (1) E. coli UTI (urinary tract infection) Status: Acute (2) History of ESBL E. coli infection Status: Chronic (3) Acute kidney injury superimposed on chronic kidney disease Status: Acute (4) T2DM (type 2 diabetes mellitus) Status: Acute Qualifiers: Qualified Codes: E11.649 - Type 2 diabetes mellitus with hypoglycemia without coma; Z79.4 - USP (current) use of insulin (5) Obesity Status: Chronic (6) Coffee ground emesis Status: Acute (7) Gastric distention Status: Acute (8) Esophageal candidiasis Status: Acute (9) Esophageal ulcer Status: Acute Qualifiers: Qualified Codes: K22.11 - Ulcer of esophagus with bleeding (10) Gastroparesis Status: Acute SAMI LAM MD Oct 27, 2021 14:54
== END 2021-10-27 14:45 | DRG 689 ==
LOC: EDUNIT# 08:18 → ER 08:19 → 4TH 10:51
PROVIDERS: ADMIT Family Medicine; ATTEND Internal Medicine
PROC: 0DB48ZX Excision of Esophagogastric Junction, Via Natural or Artificial Opening Endoscopic, Diagnostic (ICD-10-PCS; 2021-10-25)
PROC: 0DB68ZX Excision of Stomach, Via Natural or Artificial Opening Endoscopic, Diagnostic (ICD-10-PCS; 2021-10-25)
PROC: 0DD58ZX Extraction of Esophagus, Via Natural or Artificial Opening Endoscopic, Diagnostic (ICD-10-PCS; principal; 2021-10-25 13:02)
DX: N39.0 Urinary tract infection, site not specified (principal); K22.11 Ulcer of esophagus with bleeding; K29.71 Gastritis, unspecified, with bleeding; B37.0 Candidal stomatitis; N17.9 Acute kidney failure, unspecified; J44.1 Chronic obstructive pulmonary disease with (acute) exacerbation; B96.20 Unspecified Escherichia coli [E. coli] as the cause of diseases classified elsewhere; E66.9 Obesity, unspecified; K31.89 Other diseases of stomach and duodenum; E11.43 Type 2 diabetes mellitus with diabetic autonomic (poly)neuropathy; K31.84 Gastroparesis; E11.22 Type 2 diabetes mellitus with diabetic chronic kidney disease; E11.649 Type 2 diabetes mellitus with hypoglycemia without coma; N18.31 Chronic kidney disease, stage 3a; I12.9 Hypertensive chronic kidney disease with stage 1 through stage 4 chronic kidney disease, or unspecified chronic kidney disease; I25.10 Atherosclerotic heart disease of native coronary artery without angina pectoris; Z95.5 Presence of coronary angioplasty implant and graft; G47.30 Sleep apnea, unspecified; F03.90 Unspecified dementia, unspecified severity, without behavioral disturbance, psychotic disturbance, mood disturbance, and anxiety; E78.00 Pure hypercholesterolemia, unspecified; E11.40 Type 2 diabetes mellitus with diabetic neuropathy, unspecified; N40.0 Benign prostatic hyperplasia without lower urinary tract symptoms; K21.9 Gastro-esophageal reflux disease without esophagitis; M19.90 Unspecified osteoarthritis, unspecified site; G89.29 Other chronic pain; M54.9 Dorsalgia, unspecified; N31.9 Neuromuscular dysfunction of bladder, unspecified; R53.1 Weakness; F41.9 Anxiety disorder, unspecified; F32.A Depression, unspecified; K44.9 Diaphragmatic hernia without obstruction or gangrene; Z79.4 Long term (current) use of insulin; Z79.82 Long term (current) use of aspirin; Z79.899 Other long term (current) drug therapy
CPT/HCPCS: 36415; 36600; 71045; 74018; 80048; 80053; 81000; 82805; 82947; 83605; 83690; 85014; 85018; 85025; 85027; 85610; 85730; 86141; 87040; 87077; 87081; 87088; 87101; 87106; 87184; 87186; 94640; 94760; 96365; 96375; 96376

== ENCOUNTER 2022-01-14 07:28 | Inpatient (IN) | payer MEDICARE, MEDICAID ==
[~2022-01-14] VITALS: Ht 175.3 cm; Wt 107.4 kg
[2022-01-14] VITALS (11 sets, daily range): BP systolic 73–142; BP diastolic 45–118
[~2022-01-14 07:28] MED LIST changes: -BETH50TA2 PO; +BETH50TA3 PO; +BUPR150T24 PO; -CHOL4PAC14 PO; +CHOL4POW4 PO; +FAMO20TA3 PO; +LEVO750T PO; -LEVO750T39 PO; +METO5TAB2 PO; -NORM2DIS3 IV; +NORM2DIS8 IV; -NYST15CR TP; +NYST15CR35 TP; +POLY17PO6 PO; +SIMV-332 PO; -SIMV10TA PO
[2022-01-14] MEDS ORDERED: MEROPENEM 1,000 MG in NS (IVPB) 100 ML IV ONE (07:45)
[2022-01-14] MEDS ORDERED: NS IV 1000 ML 1,000 ML IV SCH ×2 (07:45→08:30)
[2022-01-14 07:48] LABS: BASOPHILS % (AUTO) 0 % (0-10); EOSINOPHILS % (AUTO) 0 % (0-10); HEMATOCRIT 43 % (40-54); HEMOGLOBIN 13.9 g/dL (13.3-17.7); LYMPHOCYTES # (AUTO) 0.8 10^3/uL (1.0-4.0); LYMPHOCYTES % (AUTO) 6 % (12-44); MEAN CORPUSCULAR HEMOGLOBIN 28 pg (25-34); MEAN CORPUSCULAR HGB CONC 33 g/dL (32-36); MEAN CORPUSCULAR VOLUME 87 fL (80-99); MEAN PLATELET VOLUME 10.7 fL (9.0-12.2); MONOCYTES # (AUTO) 0.6 10^3/uL (0.0-1.0); MONOCYTES % (AUTO) 4 % (0-12); NEUTROPHILS # (AUTO) 12.3 10^3/uL (1.8-7.8); NEUTROPHILS % (AUTO) 89 % (42-75); PLATELET COUNT 239 10^3/uL (130-400); WHITE BLOOD COUNT 13.9 10^3/uL (4.3-11.0)
[2022-01-14 07:57] LABS: ALBUMIN 3.5 GM/DL (3.2-4.5); POTASSIUM 4.6 MMOL/L (3.6-5.0)
[2022-01-14 07:58] LABS: CALCIUM 9.1 MG/DL (8.5-10.1)
[2022-01-14 08:00] LABS: TOTAL PROTEIN 7.3 GM/DL (6.4-8.2)
[2022-01-14 08:01] LABS: BILIRUBIN,TOTAL 0.6 MG/DL (0.1-1.0)
[2022-01-14 08:03] LABS: CREATININE SERUM 2.21 MG/DL (0.60-1.30)
[2022-01-14 08:12] LABS: INR 1.1 (0.8-1.4); PROTHROMBIN TIME PATIENT 14.7 SEC (12.2-14.7)
[2022-01-14 08:16] LABS: BILIRUBIN,URINE NEGATIVE (NEGATIVE); CLARITY,URINE CLEAR; COLOR,URINE YELLOW; GLUCOSE, URINE (UA) NEGATIVE (NEGATIVE); KETONES,URINE NEGATIVE (NEGATIVE); LEUKOCYTE ESTERASE ,URINE 3+ (NEGATIVE); NITRITE,URINE POSITIVE (NEGATIVE); PROTEIN,URINE 2+ (NEGATIVE)
[2022-01-14 08:19] LABS: BACTERIA,URINE LARGE /HPF; WBC,URINE 50-100 /HPF
[2022-01-14] MEDS ORDERED: NS IV 1000 ML 1,000 ML ONE (08:19)
[2022-01-14 08:22] LABS: LYMPHOCYTES % (MANUAL) 13 %; MONOCYTES % (MANUAL) 2 %; NEUTROPHILS % (MANUAL) 85 %; RBC MORPH NORMAL
--- NOTE | 2022-01-14 08:39 | Diagnostic Imaging Report ---
Indication: Fever. Study compared to 10/21/2021 FINDINGS: The heart mildly enlarged. There is poor inspiratory volume crowding the lung markings with some zones of basilar and perihilar atelectasis. No effusion or pneumothorax. IMPRESSION: Poor inspiration with some zones of atelectasis. No focal alveolar consolidation or pleural fluid. Dictated by: Dictated on workstation # [id number]
[2022-01-14] MEDS: VANCOMYCIN INJECTION 1,000 MG in NS (IVPB) 250 ML IV SCH ×2 (08:41→10:24)
--- NOTE | 2022-01-14 08:43 | ED General ---
General Chief Complaint: Fever-Adult/Adol Stated Complaint: FEVER Nursing Triage Note: PT ARRIVED [facility]IA [facility] FROM [facility]. EMS STATED THAT PT HAD A TEMP OF 103 AND O2 OF 89% ON 6L. PER DETENTION, THEY THINK PT IS SEPTIC FROM UTI. Source of Information: Patient Exam Limitations: No Limitations History of Present Illness Date Seen by Provider: Jan 14, 2022 Time Seen by Provider: 07:29 Initial Comments This is 76-year-old gentleman presents to the emergency room from [facility] via EMS with fever, decreased alertness, and hypoxia. Reportedly oxygen saturation was 89% on 6 L nasal cannula and he had a temperature of 103 despite receiving Tylenol this morning. He has some what responsive to voice and touch but is not answering questions upon arrival. He is still febrile at bundled heavily in warm clothes and a blanket. EMS reports systolic blood pressure was 140. Blood sugar on arrival was 179. COVID-19 test at the shelter was negative. Patient has a history of admission in October for urinary tract infection with cultures demonstrating multiple highly resistant bacterial strains of E. coli and Enterococcus. Paperwork notes full CODE STATUS. Urine in catheter demonstrates significant sediment and cloudiness. Allergies and Home Medications Allergies Coded Allergies: Penicillins (Unverified Allergy, Mild, HIVES, pt has rec Meropenem in the past, 10/21/21) duloxetine HCl (Verified Allergy, Mild, 11/16/19) Patient Home Medication List Home Medication List Reviewed: Yes Acetaminophen (Tylenol) 325 Mg Tablet, 650 MG PO Q4H PRN for PAIN/TEMP, (Repo rted) Entered as Reported by: TRISH GRANDE on 07/25/16 0901 Albuterol Sulfate (Albuterol Sulfate) 2.5 Mg/0.5 Ml Vial.neb, 3 ML NEB Q4H PRN for SHORTNESS OF BREATH, (Reported) Entered as Reported by: CHEIKH AMARAL on 02/25/21 0923 Amlodipine Besylate (Amlodipine Besylate) 5 Mg Tablet, 5 MG PO DAILY, (Reported) Entered as Reported by: CHEIKH AMARAL on 10/21/21 1550 Ascorbic Acid (Ascorbic Acid) 500 Mg Tablet, 1,500 MG PO DAILY, (Reported) Entered as Reported by: CHEIKH AMARAL on 04/29/19 1323 Benzonatate (Tessalon Perles) 100 Mg Capsule, 200 MG PO TID PRN for COUGH, (Reported) Entered as Reported by: CHEIKH AMARAL on 02/25/21 09 Bethanechol Chloride (Bethanechol Chloride) 50 Mg Tablet, 50 MG PO QIDACHS, (Reported) Entered as Reported by: CHEIKH AMARAL on 12/30/20 1505 Bupropion HCl (Bupropion Xl) 150 Mg Tab.er.24h, 150 MG PO DAILY, (Reported) Entered as Reported by: CHEIKH AMARAL on 10/21/21 1550 Cholestyramine (with Sugar) (Cholestyramine Packet) 4 Gm Powd.pack, 1 PACKET PO DAILY PRN for DIARRHEA, (Reported) Entered as Reported by: CHEIKH AMARAL on 02/25/21922 Citalopram Hydrobromide (Citalopram HBr) 20 Mg Tablet, 20 MG PO DAILY, (Reported) Entered as Reported by: WESTON DYSON on 05/31/15 1528 Dextromethorphan HBr/B-Sergio (Cepacol Sorethroat-Cough Jeyson) 5 Mg-7.5 Mg Lozenge, 1 EACH PO EVERY 2 HOURS PRN for COUGH, (Reported) Entered as Reported by: CHEIKH AMARAL on 10/21/21 1550 Docusate Sodium (Docusate Sodium) 100 Mg Capsule, 100 MG PO BID, (Reported) Entered as Reported by: WESTON DYSON on 05/31/15 1535 Fluconazole (Fluconazole) 100 Mg Tablet, 200 MG PO DAILY Prescribed by: SAMI LAM on 10/27/21 1208 Fluticasone/Vilanterol (Breo Ellipta 100-25 Mcg INH) 1 Each Blst.w.dev, 1 EA PO DAILY, (Reported) Entered as Reported by: CHEIKH AMARAL on 02/25/21 09 Furosemide (Furosemide) 20 Mg Tablet, 20 MG PO DAILY, (Reported) Entered as Reported by: ANGI SKINNER on 06/06/17 0724 Guaifenesin (Mucus Relief) 600 Mg Tab.er.12h, 600 MG PO QID PRN for DRAINAGE, (Reported) Entered as Reported by: CHEIKH AMARAL on 02/25/21 09 Insulin Aspart (Novolog Flexpen) 300 Units/3 Ml Solution, UNITS SQ TIDAC, (Reported) Entered as Reported by: CHEIKH AMARAL on 04/29/19 1340 Insulin Glargine,Hum.rec.anlog (Lantus Solostar) 100 Unit/1 Ml Insuln.pen, 51 UN ITS SQ HS, (Reported) Entered as Reported by: WESTON DYSON on 05/31/15 1528 Isosorbide Mononitrate (Isosorbide Mononitrate ER) 30 Mg Tab.er.24h, 30 MG PO DAILY, (Reported) Entered as Reported by: CHEIKH AMARAL on 02/25/21 09 Loperamide HCl (Imodium A-D) 2 Mg Capsule, 2 MG PO UD PRN for LOOSE STOOLS, (Reported) Entered as Reported by: CHEIKH AMARAL on 02/25/21 09 Losartan Potassium (Losartan Potassium) 50 Mg Tablet, 50 MG PO DAILY, (Reported) Entered as Reported by: CHEIKH AMARAL on 12/30/20 1505 Metoclopramide HCl (Metoclopramide HCl) 5 Mg Tablet, 5 MG PO ACHS Prescribed by: SAMI LAM on 10/27/21 120 Metoprolol Tartrate (Metoprolol Tartrate) 50 Mg Tablet, 50 MG PO BID, (Reported) Entered as Reported by: JUAN TOLLIVER on 11/17/19 1322 Montelukast Sodium (Montelukast Sodium) 10 Mg Tablet, 10 MG PO DAILY, (Reported) Entered as Reported by: CHEIKH AMARAL on 02/25/21922 Nystatin (Nystatin) 100,000 Unit/Gram Cream..g., 1 APPLIC TP TID, (Reported) Entered as Reported by: CHEIKH AMARAL on 10/21/21 1550 Ondansetron (Ondansetron Odt) 4 Mg Tab.rapdis, 4 MG PO Q4H PRN for NAUSEA/VOMITING-1ST LINE, (Reported) Entered as Reported by: CHEIKH AMARAL on 02/25/21922 Pantoprazole Sodium (Pantoprazole Sodium) 40 Mg Tablet.dr, 40 MG PO BID Prescribed by: SAMI LAM on 10/27/21 1208 Polyethylene Glycol 3350 (Miralax) 17 Gram Powd.pack, 17 GM PO DAILY, (Reported) Entered as Reported by: CHEIKH AMARAL on 10/21/21 1550 Potassium Chloride (Potassium Chloride) 20 Meq Tablet.er, 20 MEQ PO DAILY, (Reported) Entered as Reported by: CHEIKH AMARAL on 04/29/19 1323 Risperidone (Risperidone) 2 Mg Tablet, 2 MG PO Q12H, (Reported) Entered as Reported by: WESTON DYSON on 03/22/16 1336 Simvastatin (Zocor) 10 Mg Tablet, 10 MG PO HS, (Reported) Entered as Reported by: LLOYD HOOKER on 10/24/16 1517 Tiotropium Calhoun (Spiriva Respimat 2.5MCG/ACTUATION) 4 Gm Mist.inhal, 2 PUFF IH DAILY, (Reported) Entered as Reported by: CHEIKH AMARAL on 04/29/19 1323 Trazodone HCl (Trazodone HCl) 150 Mg Tablet, 150 MG PO HS, (Reported) Entered as Reported by: WESTON DYSON on 03/22/16 1336 Review of Systems Review of Systems Constitutional: see HPI EENTM: no symptoms reported Respiratory: see HPI Cardiovascular: no symptoms reported Gastrointestinal: no symptoms reported Genitourinary: see HPI Musculoskeletal: no symptoms reported Skin: no symptoms reported Psychiatric/Neurological: See HPI Hematologic/Lymphatic: No Symptoms Reported Immunological/Allergic: no symptoms reported Past Bjxcvjk-Epauom-Suaudw Hx Patient Social History Tobacco Use?: No Use of E-Cig and/or Vaping dev: Unable to obtain Substance use?: No (None known) Alcohol Use?: No (None known) Immunizations Up To Date First/Initial COVID19 Vaccinat: 05/14/20 Second COVID19 Vaccination Evangelista: 06/03/20 Third COVID19 Vaccination Date: 02/21/21 Seasonal Allergies Seasonal Allergies: No Past Medical History Surgery/Hospitalization HX: pmh: depression, htn, gerd, edema, DM 2, copd, high cholesterol Surgeries: Yes (CARDIAC CATH 05/2017--PATENT STENT, NON-OCCLUSIIVE CAD--NO INTERVENTION) Cardiac, Coronary Stent, Eye Surgery, Transurethral Resection Respiratory: Yes (HX OF SEPSIS, O2 AT 3 L/NC CONTINUOUSLY; CHRONIC COUGH) Pneumonia, Chronic Bronchitis, Sleep Apnea, COPD Currently Using CPAP: Yes Cardiac: Yes (RBBB, LAFB; CARDIAC CATHS--STENT X 1) Chronic Edema/Swelling, Coronary Artery Disease, High Cholesterol, Hypertension Neurological: Yes Dementia, Neuropathy Reproductive Disorders: No Sexually Transmitted Disease: No HIV/AIDS: No Genitourinary: Yes (INDWELLING ESCALANTE, CHRONIC BILATERAL HYDRONEPHROSIS) Benign Prostatic Hyperpl, Prostate Problems, Neurogenic Bladder, UTI-Chronic Gastrointestinal: Yes Gastroesophageal Reflux, Chronic Constipation Musculoskeletal: Yes Arthritis, Chronic Back Pain Endocrine: Yes (THYROID NODULE) Diabetes, Insulin dep HEENT: Yes (ANGIOEDEMA OF TONGUE) Cataract Hearing Impairment: Hard of Hearing Cancer: No Psychosocial: Yes Sleep Difficulties, Anxiety, Depression Integumentary: No Blood Disorders: No Adverse Reaction/Blood Tranf: No Family Medical History Family history: Hypertension 03 FATHER Stroke 03 MOTHER No Pertinent Family Hx PSH: -CATARACT SURGERY -TURP 10/31/[address] LAROSE -CARDIAC CATHS--STENT X 1--LAST CATH 05/2017--PATENT STENT, NON-OCCLUSIVE CAD, NO INTERVENTION -CHOLECYSTETCOMY Physical Exam-Suspected Sepsis Physical Exam Vital Signs Vital Signs - First Documented 01/14/22 07:28 Temp 38.4 Pulse 108 Resp 35 Pulse Ox 87 O2 Delivery Nasal Cannula O2 Flow Rate 4.00 Capillary Refill : Less Than 3 Seconds Height, Weight, BMI Height: 5'9.00" Weight: 260lbs. 0.0oz. 117.427647ps; 35.78 BMI Method:Stated General Appearance: WD/WN, Obese, Other (Decreased responsiveness) HEENT: PERRL/EOMI, Normal ENT Inspection, Other (Oropharynx quite dry) Neck: Normal Inspection Respiratory: Lungs Clear; No Crackles; Decreased Breath Sounds; No Wheezing Cardiovascular: Regular Rate, Rhythm, No Murmur, Other (Radial and pedal pulses palpable. Sinus rhythm on monitor) Gastrointestinal: Non Tender, Soft; No Distended Extremity: Normal Inspection, No Pedal Edema Neurologic/Psychiatric: Other (Decreased alertness, not answering questions or following commands initially) Skin: normal color, warm/dry Focused Exam Sepsis Stage: Severe Sepsis Possible Source: Genitouriary Lactate Level 01/14/22 07:35: Lactic Acid Level 2.31*H Time of Focused Exam: 08:45 Respiratory: No Respiratory Distress Cardiovascular: No Edema, Irregularly Irregular Skin: normal color Lactic Acid Level Laboratory Tests Test 01/14/22 07:35 Lactic Acid Level 2.31 MMOL/L (0.50-2.00) *H Within 3hrs of presentation: Admin fluids, Admin 30ml/kg IBW due to BMI>30, Admin ABX, Blood cultures prior to ABX's, Focus exam, Lactate level Progress/Results/Core Measures Suspected Sepsis SIRS Temperature: Pulse: 108 Respiratory Rate: 35 Laboratory Tests 01/14/22 07:35: White Blood Count 13.9H Blood Pressure / Mean: 01/14/22 07:35: Lactic Acid Level 2.31*H Laboratory Tests 01/14/22 07:35: Creatinine 2.21H, INR Comment 1.1, Platelet Count 239, Total Bilirubin 0.6 Results/Orders Lab Results Laboratory Tests Test 01/14/22 07:35 01/14/22 07:41 01/14/22 07:43 01/14/22 08:02 Range/Units White Blood Count 13.9 H 4.3-11.0 10^3/uL Red Blood Count 4.91 4.30-5.52 10^6/uL Hemoglobin 13.9 13.3-17.7 g/dL Hematocrit 43 40-54 % Mean Corpuscular Volume 87 80-99 fL Mean Corpuscular Hemoglobin 28 25-34 pg Mean Corpuscular Hemoglobin Concent 33 32-36 g/dL Red Cell Distribution Width 14.2 10.0-14.5 % Platelet Count 239 130-400 10^3/uL Mean Platelet Volume 10.7 9.0-12.2 fL Immature Granulocyte % (Auto) 1 % Neutrophils (%) (Auto) 89 H 42-75 % Lymphocytes (%) (Auto) 6 L 12-44 % Monocytes (%) (Auto) 4 0-12 % Eosinophils (%) (Auto) 0 0-10 % Basophils (%) (Auto) 0 0-10 % Neutrophils # (Auto) 12.3 H 1.8-7.8 10^3/uL Lymphocytes # (Auto) 0.8 L 1.0-4.0 10^3/uL Monocytes # (Auto) 0.6 0.0-1.0 10^3/uL Eosinophils # (Auto) 0.0 0.0-0.3 10^3/uL Basophils # (Auto) 0.0 0.0-0.1 10^3/uL Immature Granulocyte # (Auto) 0.1 0.0-0.1 10^3/uL Neutrophils % (Manual) 85 % Lymphocytes % (Manual) 13 % Monocytes % (Manual) 2 % Blood Morphology Comment NORMAL Prothrombin Time 14.7 12.2-14.7 SEC INR Comment 1.1 0.8-1.4 Activated Partial Thromboplast Time 30 24-35 SEC Sodium Level 132 L 135-145 MMOL/L Potassium Level 4.6 3.6-5.0 MMOL/L Chloride Level 95 L 98-107 MMOL/L Carbon Dioxide Level 25 21-32 MMOL/L Anion Gap 12 5-14 MMOL/L Blood Urea Nitrogen 24 H 7-18 MG/DL Creatinine 2.21 H 0.60-1.30 MG/DL Estimat Glomerular Filtration Rate 30 BUN/Creatinine Ratio 11 Glucose Level 178 H 70-105 MG/DL Lactic Acid Level 2.31 *H 0.50-2.00 MMOL/L Calcium Level 9.1 8.5-10.1 MG/DL Corrected Calcium 9.5 8.5-10.1 MG/DL Total Bilirubin 0.6 0.1-1.0 MG/DL Aspartate Amino Transf (AST/SGOT) 19 5-34 U/L Alanine Aminotransferase (ALT/SGPT) 14 0-55 U/L Alkaline Phosphatase 89 40-136 U/L C-Reactive Protein High Sensitivity 5.52 H 0.00-0.50 MG/DL Total Protein 7.3 6.4-8.2 GM/DL Albumin 3.5 3.2-4.5 GM/DL Procalcitonin 0.09 <0.10 NG/ML Glucometer 179 H 70-110 MG/DL Influenza Type A (RT-PCR) Not Detected Not Detecte Influenza Type B (RT-PCR) Not Detected Not Detecte SARS-CoV-2 RNA (RT-PCR) Not Detected Not Detecte Urine Color YELLOW Urine Clarity CLEAR Urine pH 6.0 5-9 Urine Specific [place] 1.010 L 1.016-1.022 Urine Protein 2+ H NEGATIVE Urine Glucose (UA) NEGATIVE NEGATIVE Urine Ketones NEGATIVE NEGATIVE Urine Nitrite POSITIVE H NEGATIVE Urine Bilirubin NEGATIVE NEGATIVE Urine Urobilinogen 0.2 < = 1.0 MG/DL Urine Leukocyte Esterase 3+ H NEGATIVE Urine RBC (Auto) 3+ H NEGATIVE Urine RBC 5-10 H /HPF Urine WBC 50-100 H /HPF Urine Crystals NONE /LPF Urine Bacteria LARGE H /HPF Urine Casts NONE /LPF Urine Mucus NEGATIVE /LPF Urine Culture Indicated CULTURE PENDING My Orders Orders - MIRNA CARRION MD Cbc With Automated Diff (01/14/22 07:34) Comprehensive Metabolic Panel (01/14/22 07:34) Blood Culture (01/14/22 07:34) Sputum Culture (01/14/22 07:34) Urinalysis (01/14/22 07:34) Urine Culture (01/14/22 07:34) Protime With Inr (01/14/22 07:34) Partial Thromboplastin Time (01/14/22 07:34) Chest 1 View, Ap/Pa Only (01/14/22 07:34) Ed Iv/Invasive Line Start (01/14/22 07:34) Ed Iv/Invasive Line Start (01/14/22 07:34) Vital Signs Adult Sepsis Patie Q15M (01/14/22 07:34) O2 (01/14/22 07:34) Remove Rings In Anticipation O (01/14/22 07:34) Lactic Acid Analyzer (01/14/22 07:34) Hs C Reactive Protein (01/14/22 07:34) Procalcitonin (Pct) (01/14/22 07:34) Ns Iv 1000 Ml (Sodium Chloride 0.9%) (01/14/22 07:45) Meropenem (Merrem 1000 Mg) (01/14/22 07:45) Escalante Cath (01/14/22 07:37) Accucheck Stat ONCE (01/14/22 07:37) Manual Differential (01/14/22 07:35) Ns Iv 1000 Ml (Sodium Chloride 0.9%) (01/14/22 08:19) Ns Iv 1000 Ml (Sodium Chloride 0.9%) (01/14/22 08:30) Covid 19 Inhouse Test (01/14/22 08:21) Influenza A And B By Pcr (01/14/22 08:21) Vancomycin Injection (Vancomycin Injecti (01/14/22 08:45) Ns Iv 500 Ml (Sodium Chloride 0.9%) (01/14/22 09:00) Medications Given in ED Current Medications Medications Dose Ordered Sig/Areli Route Start Time Stop Time Status Last Admin Dose Admin Meropenem 1000 mg/ Sodium Chloride 100 ml @ 200 mls/hr ONCE ONCE IV 01/14/22 07:45 01/14/22 08:14 DC 01/14/22 08:03 200 MLS/HR Vital Signs/I&O 01/14/22 01/14/22 07:28 07:30 Temp 38.4 Pulse 108 Resp 35 B/P (MAP) Pulse Ox 87 O2 Delivery Nasal Cannula OxyMask O2 Flow Rate 4.00 10.00 Capillary Refill : Less Than 3 Seconds Point of Care Testing Finger Stick Blood Glucose: 179 Blood Glucose Action Taken: RN AND PHYSICIAN NOTIFIED Progress Note #1: Time: 08:43 Progress Note Septic work-up was pursued. Patient developed hypotension. He is now receiving his second liter of IV fluids and blood pressure has rebounded to systolic pressures in the 90s. Antibiotic therapy was selected based on prior cultures. He is receiving meropenem 1 g and vancomycin 2 g. Oxygenation has stabilized on oxymask. half-way paperwork was reviewed, and he is noted to be full code. COVID-19 test at the shelter was negative. Our COVID-19 test is pending. Patient will be admitted to the ICU with Dr. Harpreet luna. An additional 500 mL normal saline bolus will be administered for a total fluid bolus of 2500 mL. This will more than satisfy 30 mL/kg large-volume fluid bolus for ideal body golden ght (approximately 2200 mL for this patient). Escalante catheter was replaced. Progress Note #2: Time: 09:45 Progress Note Report given to eICU. Diagnostic Imaging Diagonstic Imaging: Xray Plain Films/CT/US/NM/MRI: chest Comments Chest x-ray viewed by me and report reviewed. See report below: NAME: [facility] REC#: [id number] PT STATUS: REG ER : 1945 PHYSICIAN: MIRNA CARRION MD ADMIT DATE: 01/14/22/ER Signed Date of Exam:01/14/22 CHEST 1 VIEW, AP/PA ONLY Indication: Fever. Study compared to 10/21/2021 FINDINGS: The heart mildly enlarged. There is poor inspiratory volume crowding the lung markings with some zones of basilar and perihilar atelectasis. No effusion or pneumothorax. IMPRESSION: Poor inspiration with some zones of atelectasis. No focal alveolar consolidation or pleural fluid. Dictated by: Dictated on workstation # [id number] Dict: 01/14/22821 Trans: 01/14/22838 [facility] [phone] Interpreted by: VIRGINIE FONSECA Electronically signed by: VIRGINIE FONSECA 01/14/22838 Departure Communication (Admissions) Time/Spoke to Admitting Phy: 08:40 Dr. Mullins Impression Primary Impression: Severe sepsis Additional Impressions: Urinary tract infection Qualified Codes: N39.0 - Urinary tract infection, site not specified Acute kidney injury Altered mental status Qualified Codes: R41.82 - Altered mental status, unspecified Disposition: ADMITTED INPATIENT Condition: Stable Admissions Decision to Admit Reason: Admit from ER (General) Decision to Admit/Date: Jan 14, 2022 Time/Decision to Admit Time: 08:40 Departure-Patient Inst. Referrals: VERENA LANCE MD (PCP/Family) Primary Care Physician Copy Copies To 1: VERENA LANCE MD, JOSHUA T MD Jan 14, 2022 08:43
[2022-01-14] MEDS ORDERED: NS IV 500 ML 500 ML IV ONE (09:00)
[2022-01-14] MEDS ORDERED: LACTATED RINGERS 0 ML IV ONE (10:07)
--- NOTE | 2022-01-14 10:47 | History & Physical-Hospitalist ---
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 He resides at [facility] and was found to have a temperature of 103 this morning and had a change in his mental status so vitals were taken and showed him to be hypoxic. He was satting 89% on 6 L and so was brought in for evaluation in the emergency room. They did do a COVID test which was negative. He is able to answer a couple of yes or no questions but is quite dyspneic on my exam and thus history is limited. He did shake his head when asked if he had not been feeling well. He denied any pain. He did agree that he was short of breath. He was found to have a urinary tract infection on work-up in the emergency department and was quite hypotensive with systolics in the 70s. He is admitted to the ICU for severe sepsis and IV antibiotics. Source: patient Exam Limitations: clinical condition Date Seen 01/14/22 Time Seen by a Provider: 09:50 Attending Physician Bhaskar Alcantara MD PCP Admitting Physician: Lupe Mullins MD Attending Physician: Lupe Mullins MD Referring Physician Date of Admission Jan 14, 2022 at 08:47 Home Medications & Allergies Home Medications Reviewed patient Home Medication Reconciliation performed by pharmacy medication reconciliations cost recovery technician and/or nursing. Patients Allergies have been reviewed. Allergies Allergies Coded Allergies Penicillins (Unverified Allergy, Mild, HIVES, pt has rec Meropenem in the past, 10/21/21) duloxetine HCl (Verified Allergy, Mild, 11/16/19) Past Tuuhmcw-Bxjwii-Avfryv Hx Patient Social History Employed/Student: retired Tobacco Use?: No Use of E-Cig and/or Vaping dev: Unable to obtain Substance use?: No (None known) Alcohol Use?: No (None known) Immunizations Up To Date Date of Influenza Vaccine: Feb 17, 2021 First/Initial COVID19 Vaccinat: 05/14/20 Second COVID19 Vaccination Evangelista: 06/03/20 Tetanus Booster (TDap): Unknown Date of Pneumonia Vaccine: Mar 07, 2010 Seasonal Allergies Seasonal Allergies: No Current Status Primary Language: Guamanian Preferred Spoken Language: Guamanian Past Medical History Surgeries: Cardiac, Coronary Stent, Eye Surgery, Transurethral Resection Pneumonia, Chronic Bronchitis, Sleep Apnea, COPD Currently Using CPAP: Yes Chronic Edema/Swelling, Coronary Artery Disease, High Cholesterol, Hypertension Dementia, Neuropathy Sexually Transmitted Disease: No HIV/AIDS: No Benign Prostatic Hyperpl, Prostate Problems, Neurogenic Bladder, UTI-Chronic Gastroesophageal Reflux, Chronic Constipation Arthritis, Chronic Back Pain Diabetes, Insulin dep Cataract Hearing Impairment: Hard of Hearing Sleep Difficulties, Anxiety, Depression Blood Disorders: No Adverse Reaction/Blood Tranf: No Family Medical History Reviewed Nursing Family Hx Family history: Hypertension 03 FATHER Stroke 03 MOTHER PSH: -CATARACT SURGERY -TURP 10/31/[address] LAROSE -CARDIAC CATHS--STENT X 1--LAST CATH 05/2017--PATENT STENT, NON-OCCLUSIVE CAD, NO INTERVENTION -CHOLECYSTETCOMY Review of Systems ROS-Unable to Obtain: clinical condition Constitutional: see HPI Physical Exam Physical Exam Vital Signs Vital Signs - First Documented 01/14/22 01/14/22 01/14/22 07:28 09:33 12:00 Temp 38.4 Pulse 108 Resp 35 B/P (MAP) 102/61 Pulse Ox 87 O2 Delivery Nasal Cannula O2 Flow Rate 4.00 FiO2 60 Capillary Refill : Less Than 3 Seconds Height, Weight, BMI Height: 5'9.00" Weight: 260lbs. 0.0oz. 117.391842ok; 35.78 BMI Method:Stated General Appearance: Chronically ill, Mild Distress, Obese HEENT: PERRL/EOMI, Moist Mucous Membranes; No Scleral Icterus (L), No Scleral Icterus (R) Neck: Normal Inspection, Supple; No JVD Respiratory: Accessory Muscle Use, Crackles (bases), Decreased Breath Sounds; No Wheezing Cardiovascular: Regular Rate, Rhythm, No JVD, No Murmur Gastrointestinal: Normal Bowel Sounds, Non Tender, Soft Extremity: Normal Capillary Refill, No Calf Tenderness, No Pedal Edema Neurologic/Psychiatric: Alert, Oriented x3 (to person and place) Skin: Normal Color, Warm/Dry Results Results/Procedures Labs Laboratory Tests 01/14/22 07:35 01/15/22 04:07 Patient resulted labs reviewed. Assessment/Plan Admission Diagnosis Severe sepsis Admission Status: Inpatient Order (span 2 midnights) Reason for Inpatient Admission: see below Assessment and Plan Severe sepsis E coli UTI History of MDR-E coli metabolic encephalopathy Lactic >2 and hypotensive on arrival (received 2L fluids adjusted for IBW of 70kg) Multiple prior urine cultures with ESBL E coli UA consistent with UTI Await cultures Started on Meropenem given history of MDRO Acute hypoxic respiratory failure COPD Tachypneic with accessory myuscle use on arrival the floor BiPAP ordered while at bedside ABG Will defer further fluid boluses to avoid worsening respiratory status unless hemodynamically unstable Did agree to intubation if needed LILIANA on CKD Clinical Trainer 2.2, baseline of 1.09 Received fluid bolus Monitor I/Os T2DM Sliding scale insulin HTN HLD CAD Continue home meds as able Obesity Clinically significant, no acute management needs DVT prophylaxis: Lovenox Diagnosis/Problems Diagnosis/Problems (1) Severe sepsis Status: Acute (2) Urinary tract infection Status: Acute Qualifiers: Urinary tract infection type: site unspecified Hematuria presence: without hematuria Qualified Codes: N39.0 - Urinary tract infection, site not specified (3) Altered mental status Status: Acute Qualifiers: Altered mental status type: unspecified Qualified Codes: R41.82 - Altered mental status, unspecified (4) Acute kidney injury superimposed on chronic kidney disease Status: Acute (5) History of ESBL E. coli infection Status: Chronic (6) T2DM (type 2 diabetes mellitus) Status: Acute (7) Obesity Status: Chronic (8) COPD (chronic obstructive pulmonary disease) Status: Acute (9) Altered mental status Status: Acute LUPE MULLINS MD Jan 14, 2022 10:47
[2022-01-14] MEDS ORDERED: ACETAMINOPHEN 650 MG SUPP (TYLENOL) PR PRN (11:30)
[2022-01-14] MEDS ORDERED: ACETAMINOPHEN 325 MG TABLET PO PRN (11:30)
[2022-01-14] MEDS ORDERED: LACTATED RINGERS 1,000 ML IV SCH (12:00)
--- NOTE | 2022-01-14 12:13 | Diagnostic Imaging Report ---
EXAMINATION: Chest 1 view HISTORY: Line placement COMPARISON: 01/14/2022 FINDINGS: There are scattered areas of atelectasis. No edema or pneumonia. No pleural effusion or pneumothorax. Heart size is normal. Left subclavian catheter tip is in the brachiocephalic vein. IMPRESSION: 1. Left subclavian catheter tip is in the brachiocephalic vein. Dictated by: Dictated on workstation # [id number]
[2022-01-14] MEDS ORDERED: METOCLOPRAMIDE INJ 10 MG/2 ML (REGLAN) IVP PRN (12:30)
--- NOTE | 2022-01-14 12:35 | Tele-ICU Consult ---
History of Present Illness History of Present Illness Date Seen by Provider: Jan 14, 2022 Time Seen by Provider: 12:34 Date of Admission (Tele-ICU Physician , consultation) Available chart/ vitals / labs / Images reviewed H&P is from ER notes Patient's information available about PMH, Shx, Fhx allergy reviewed inEMR. ROS as per chart and RN report Now in ICU, hemodynamically stable Video assessment done using teleICU camera, rest of exam as per RN Discussed with RN. Consultants: Hospital course: (01/14) 76M Admitted for AMS, sepsis UTI/ARF, hypoxia. COPD/BOBO hx. Also chronic UTI's with chronic brady and chronic bilateral hydronephrosis A/P Sepsis - received > 30 cc /kg IVF in ER - ( 2.5L ) BP normalized - follow UTI, recurrent -brady ( ? chronic ) - replaced in ER -History of ESBL E coli Multiple prior urine cultures with ESBL E coli- started on MErrem based on previous cx Acute hypoxic resp failure - ? VO after fluid resuscitation -on BIPAP 20/12 60 % rr 17 tv 650 - add nebs Lethargy / ? TME ( with h/o dementia - AAx2 - check abg LILIANA on CKD - hydration stopped due to VO - follow DM II - ISS h/o Esophageal candidiasis / Esophageal ulcer by EGD 10/25/21 - tx-ed with EGD 10/25 Lines : periph , (Central Line Necessity Reviewed) Brady: + OG: Nutrition: npo Analgesia: Anxiety/ delirium VTE Prophylaxis: hep sq Stress Ulcer Prophylaxis: Plans in collaboration with bedside consultants and IM MDs. Discussed with RN to reach out if any questions or concerns A total of 31 minutes of critical care time was devoted to this patient today, required to treat and/or prevent further deterioration of critical care condition ( as above ) . Allergies and Home Medications Allergies Coded Allergies: Penicillins (Unverified Allergy, Mild, HIVES, pt has rec Meropenem in the past, 10/21/21) duloxetine HCl (Verified Allergy, Mild, 11/16/19) Home Medications Acetaminophen 325 Mg Tablet, 650 MG PO Q4H PRN for PAIN/TEMP, (Reported) TAKES 2 (325MG) TABS Albuterol Sulfate 2.5 Mg/0.5 Ml Vial.neb, 3 ML NEB Q4H PRN for SHORTNESS OF BREATH, (Reported) Amlodipine Besylate 5 Mg Tablet, 5 MG PO DAILY, (Reported) NOTIFY CHARGE NURSE IF SBP>190 OR >100 Ascorbic Acid 500 Mg Tablet, 1,500 MG PO DAILY, (Reported) Benzonatate 100 Mg Capsule, 200 MG PO TID PRN for COUGH, (Reported) Bethanechol Chloride 50 Mg Tablet, 50 MG PO QIDACHS, (Reported) Bupropion HCl 150 Mg Tab.er.24h, 150 MG PO DAILY, (Reported) PER VIA [facility] THE STOP DATE ON THIS MEDICATION IS 10-27-2021 Cholestyramine (with Sugar) 4 Gm Powd.pack, 1 PACKET PO DAILY PRN for DIARRHEA, (Reported) Citalopram Hydrobromide 20 Mg Tablet, 20 MG PO DAILY, (Reported) Dextromethorphan HBr/B-Sergio 5 Mg-7.5 Mg Lozenge, 1 EACH PO EVERY 2 HOURS PRN for COUGH, (Reported) Docusate Sodium 100 Mg Capsule, 100 MG PO BID, (Reported) Fluconazole 100 Mg Tablet, 200 MG PO DAILY Prescribed by: SAMI LAM on 10/27/211207 Fluticasone/Vilanterol 1 Each Blst.w.dev, 1 EA PO DAILY, (Reported) Furosemide 20 Mg Tablet, 20 MG PO DAILY, (Reported) Guaifenesin 600 Mg Tab.er.12h, 600 MG PO QID PRN for DRAINAGE, (Reported) Insulin Aspart 300 Units/3 Ml Solution, UNITS SQ TIDAC, (Reported) USE PER SLIDING SCALE: 151-200=2 UNITS 201-250=4 UNITS 251-300=6 UNITS 301- 350=8 UNITS 351-400=10 UNITS >400 NOTIFY PCP Insulin Glargine,Hum.rec.anlog 100 Unit/1 Ml Insuln.pen, 51 UNITS SQ HS, (Reported) Isosorbide Mononitrate 30 Mg Tab.er.24h, 30 MG PO DAILY, (Reported) Loperamide HCl 2 Mg Capsule, 2 MG PO UD PRN for LOOSE STOOLS, (Reported) TAKE AFTER EACH LOOSE STOOL Losartan Potassium 50 Mg Tablet, 50 MG PO DAILY, (Reported) Metoclopramide HCl 5 Mg Tablet, 5 MG PO ACHS Prescribed by: SAMI LAM on 10/27/21 1208 Metoprolol Tartrate 50 Mg Tablet, 50 MG PO BID, (Reported) Montelukast Sodium 10 Mg Tablet, 10 MG PO DAILY, (Reported) Nystatin 100,000 Unit/Gram Cream..g., 1 APPLIC TP TID, (Reported) APPLY TO FOLDS Ondansetron 4 Mg Tab.rapdis, 4 MG PO Q4H PRN for NAUSEA/VOMITING-1ST LINE, (Reported) Pantoprazole Sodium 40 Mg Tablet.dr, 40 MG PO BID Prescribed by: SAMI LAM on 10/27/21 1208 Polyethylene Glycol 3350 17 Gram Powd.pack, 17 GM PO DAILY, (Reported) Potassium Chloride 20 Meq Tablet.er, 20 MEQ PO DAILY, (Reported) Risperidone 2 Mg Tablet, 2 MG PO Q12H, (Reported) Simvastatin 10 Mg Tablet, 10 MG PO HS, (Reported) Tiotropium [place] 4 Gm Mist.inhal, 2 PUFF IH DAILY, (Reported) Trazodone HCl 150 Mg Tablet, 150 MG PO HS, (Reported) Past Medical/Social/Family Hx Patient Social History Tobacco Use?: No Use of E-Cig and/or Vaping dev: Unable to obtain Substance use?: No (None known) Alcohol Use?: No (None known) Immunizations Up To Date First/Initial COVID19 Vaccinat: 05/14/20 Second COVID19 Vaccination Evangelista: 06/03/20 Tetanus Booster (TDap): Unknown TB Skin Test: None Date of Pneumonia Vaccine: Mar 07, 2010 Current Status Primary Language: Grenadian Preferred Spoken Language: Grenadian Family Medical History Family Hx: PSH: -CATARACT SURGERY -TURP 10/31/[address] LAROSE -CARDIAC CATHS--STENT X 1--LAST CATH 05/2017--PATENT STENT, NON-OCCLUSIVE CAD, NO INTERVENTION -CHOLECYSTETCOMY Review of Systems Constitutional: see HPI Focused Exam Lactate Level 01/14/22 07:35: Lactic Acid Level 2.31*H 01/14/22 10:20: Lactic Acid Level 1.04 Height, Weight, BMI Height: 5'9.00" Weight: 260lbs. 0.0oz. 117.340777qw; 35.78 BMI Method:Stated Time of Focused Exam: 08:45 Lactic Acid Level Laboratory Tests Test 01/14/22 10:20 Lactic Acid Level 1.04 MMOL/L (0.50-2.00) Exam Exam Patient acknowledged, consented, and participated in this virtual visit which was conducted using real time audio/video Vital Signs Date Time Temp Pulse Resp B/P (MAP) Pulse Ox O2 Delivery O2 Flow Rate FiO2 01/14/22 12:00 36.0 01/14/22 12:00 73 14 124/64 (84) 100 NIV Bilevel 60.00 01/14/22 11:00 87 19 136/86 (103) 95 NIV Bilevel 60.00 01/14/22 10:51 NIV Bilevel 60.00 01/14/22 10:38 86 01/14/22 10:00 85 22 100/56 (71) 97 OxyMask 10.00 01/14/22 09:50 37.2 82 21 132/118 (123) 97 OxyMask 10.00 01/14/22 09:33 70 102/61 96 OxyMask 10.00 01/14/22 07:30 OxyMask 10.00 01/14/22 07:28 38.4 108 35 87 Nasal Cannula 4.00 Height & Weight Height: 5'9.00" Weight: 260lbs. 0.0oz. 117.939545tk; 35.78 BMI Method:Stated General Appearance: No Apparent Distress, WD/WN, Obese, Other (Decreased responsiveness) HEENT: PERRL/EOMI, Normal ENT Inspection, Other (Oropharynx quite dry) Neck: Normal Inspection Respiratory: No Respiratory Distress Cardiovascular: No Edema, Irregularly Irregular Capillary Refill: Less Than 3 Seconds Extremity: Normal Inspection, No Pedal Edema Neurologic/Psychiatric: Other (Decreased alertness, not answering questions or following commands initially) Results Lab Laboratory Tests 01/14/22 07:35 Assessment/Plan Assessment/Plan 1 LILLIAM KHAN MD Jan 14, 2022 12:35
--- NOTE | 2022-01-14 13:31 | CONSULTATION REPORT ---
DATE OF SERVICE: 01/14/2022 ATTENDING PRIMARY CARE PHYSICIAN: Dr. Bhaskar Alcantara. HISTORY OF PRESENT ILLNESS: The patient is a 76-year-old male, resident of [facility]. He was brought to the Emergency Department with fever, decreased alertness, and hypoxia. Reportedly, his oxygen saturation was at 89% on 6 liters nasal cannula and he also did have a temperature of 103. Upon arrival, the patient was found to be hypotensive with systolic pressure in the 70s; however, he did have a response to fluid challenge. The patient also is significantly short of breath with a low oxygen saturation and is requiring CPAP. Due to his sepsis and respiratory status, he will require a central venous catheter for potential IV pressors as well as multi-pharmaceuticals for respiratory failure. PAST MEDICAL HISTORY: Dementia, neuropathy, coronary artery disease, hypertension, gastroesophageal reflux disease, diabetes, COPD, hypercholesterolemia, coronary artery disease, neurogenic bladder, benign prostatic hypertrophy, chronic urinary tract infection, and constipation. PAST SURGICAL HISTORY: Cardiac catheterization and stent placement in 2018, eye surgery, transurethral resection of the prostate, and suprapubic catheter placement. ALLERGIES: PENICILLIN and DULOXETINE. MEDICATIONS: Albuterol, amlodipine, vitamin C, benzonatate, bethanechol, bupropion, cholestyramine, citalopram, dextromethorphan, Colace, fluconazole, Breo Ellipta, furosemide, guaifenesin, aspartate insulin, glargine insulin, isosorbide mononitrate, loperamide, losartan, Reglan, metoprolol, montelukast, nystatin, Zofran, Protonix, polyethylene glycol, potassium, risperidone, simvastatin, tiotropium bromide, and trazodone. SOCIAL HISTORY: Unable to obtain. FAMILY HISTORY: Father, stroke. REVIEW OF SYSTEMS: This is an obese male, who is awake; however, nonverbal; however, does respond to physical cues. He is currently on BiPAP. He does have a history of COPD. No new cough or sputum production. No chest pain, palpitations or diaphoresis. No nausea, vomiting history of constipation. No known red blood per rectum nor any dark tarry stools. He was febrile with a temperature of 103. PHYSICAL EXAMINATION: VITAL SIGNS: Temperature , blood pressure 136/86, pulse 87, respirations 19, and pulse ox 95% on BiPAP at 60% FiO2. CHEST: A few scattered rales and rhonchi bilaterally. HEART: Regular, no murmurs. EXTREMITIES: No lower extremity edema and negative Homans sign. HEENT: No scleral icterus. NECK: No cervical lymphadenopathy. ABDOMEN: Soft, nontender, and nondistended. SKIN: Warm, dry. LABORATORY DATA: WBC 13.9, hemoglobin 13.9, hematocrit 43, and platelets 239. BUN 24, creatinine 2.21, glucose 179. Urinalysis positive for nitrite, large amount of bacteria and leukocyte esterase. ASSESSMENT AND PLAN: A 76-year-old male with a symptomatic urosepsis with hyperpyrexia as well as hypotension and respiratory failure. He will require a central venous catheter for pressors as well as other medical therapies and we will proceed with placement of a central venous catheter. Job ID: [id number] DocumentID: [id number] Dictated Date: 01/14/2022 12:08:46 Supervisor Locomotive Date: 01/14/2022 13:30:33 Dictated By: RICARDO SAINI MD
[2022-01-14] MEDS: RT-ALBUTEROL/IPRATROPIUM 3 ML (DUONEB) VIAL INH SCH ×3 (14:00→22:56)
[2022-01-14] MEDS ORDERED: NOREPINEPHRINE 8 MG/250 ML 250 ML IV ONE (15:43)
[2022-01-14] MEDS ORDERED: RT-ALBUTEROL/IPRATROPIUM 3 ML (DUONEB) VIAL INH PRN (16:00)
[2022-01-14] MEDS ORDERED: inSUlin ASPART (NovoLOG) 1 UNIT/0.01 ML (CHARGE PER UNIT) SC SCH (16:00)
[2022-01-14] MEDS: NOREPINEPHRINE 8 MG/250 ML 250 ML IV SCH (16:03)
--- NOTE | 2022-01-14 16:46 | OPERATIVE REPORT ---
DATE OF SERVICE: 01/14/2022 ATTENDING PRIMARY CARE PHYSICIAN: Dr. Bhaskar Alcantara. PREOPERATIVE DIAGNOSES: Urosepsis and respiratory failure. POSTOPERATIVE DIAGNOSES: Urosepsis and respiratory failure. PROCEDURE PERFORMED: Placement of left subclavian central venous catheter. SURGEON: Ricardo Saini MD. ANESTHESIA: Local. ESTIMATED BLOOD LOSS: Minimal. FINDINGS: Catheter tip at superior vena caval - right atrial junction. DISPOSITION: The patient tolerated the procedure well. INDICATIONS FOR PROCEDURE: The patient is a 76-year-old male, who is a resident of an [facility] care facility. He was brought to the Emergency Department due to obtundation, hypoxemia as well as fevers. Upon admission, he was found to be febrile with a temperature of 103 and also hypotensive with a systolic blood pressure in the 70s. He did respond to a fluid challenge; however, also does have a history of COPD and is in respiratory failure. The patient will require a central venous catheter. DESCRIPTION OF PROCEDURE: The chest and neck were prepped and draped in a standard surgical fashion. A 1% lidocaine was then used to anesthetize the left subclavian region. The left subclavian vein was then cannulated with drawing of venous blood. The guidewire was then inserted without any resistance. Cannulating needle was removed and a skin incision made using an 11 blade. A tract was then created using a venous dilator and through this opening, a triple lumen central venous catheter was placed over the guidewire using the Seldinger technique. The guidewire was then removed. All three ports sherman venous blood and saline pushed in without any resistance. The catheter was then sutured to the skin using 3-0 silk interrupted sutures. Catheter was then cleaned and covered with Op-Site. The patient tolerated the procedure well. We will get a post-procedure chest x-ray once confirmation of placement the catheter may be used. Job ID: [id number] DocumentID: [id number] Dictated Date: 01/14/2022 12:11:45 Labor Operator Date: 01/14/2022 16:45:27 Dictated By: RICARDO SAINI MD
[2022-01-14] MEDS: MEROPENEM 500 MG/NS 100 ML IVPB IV SCH ×4 (16:56→21:23)
[2022-01-14] MEDS: inSUlin ASPART (NovoLOG) 1 UNIT/0.01 ML (CHARGE PER UNIT) SC SCH ×2 (18:00→23:36)
[2022-01-14] MEDS ORDERED: NS IV 500 ML 500 ML IV PRN (20:45)
[2022-01-15 02:39] VITALS: BP 135/105
[2022-01-15] MEDS: RT-ALBUTEROL/IPRATROPIUM 3 ML (DUONEB) VIAL INH SCH ×6 (02:39→21:44)
[2022-01-15 04:30] LABS: BASOPHILS % (AUTO) 0 % (0-10); EOSINOPHILS # (AUTO) 0.2 10^3/uL (0.0-0.3); EOSINOPHILS % (AUTO) 2 % (0-10); HEMATOCRIT 37 % (40-54); HEMOGLOBIN 11.5 g/dL (13.3-17.7); LYMPHOCYTES # (AUTO) 1.8 10^3/uL (1.0-4.0); LYMPHOCYTES % (AUTO) 16 % (12-44); MEAN CORPUSCULAR HEMOGLOBIN 28 pg (25-34); MEAN CORPUSCULAR HGB CONC 31 g/dL (32-36); MEAN CORPUSCULAR VOLUME 90 fL (80-99); MEAN PLATELET VOLUME 10.4 fL (9.0-12.2); MONOCYTES # (AUTO) 0.6 10^3/uL (0.0-1.0); MONOCYTES % (AUTO) 6 % (0-12); NEUTROPHILS # (AUTO) 8.2 10^3/uL (1.8-7.8); NEUTROPHILS % (AUTO) 75 % (42-75); PLATELET COUNT 181 10^3/uL (130-400)
[2022-01-15] MEDS: NOREPINEPHRINE 8 MG/250 ML 250 ML IV SCH ×2 (04:32→17:04)
[2022-01-15 04:47] LABS: POTASSIUM 4.1 MMOL/L (3.6-5.0)
[2022-01-15 04:49] LABS: CALCIUM 8.5 MG/DL (8.5-10.1)
[2022-01-15 04:53] LABS: CREATININE SERUM 1.49 MG/DL (0.60-1.30); PHOSPHORUS 2.6 MG/DL (2.3-4.7)
[2022-01-15 04:56] LABS: MAGNESIUM 1.8 MG/DL (1.6-2.4)
[2022-01-15] MEDS: MEROPENEM 500 MG/NS 100 ML IVPB IV SCH ×6 (05:15→21:21)
[2022-01-15] MEDS: KCL 20 MEQ TAB (K-DUR) PO SCH (05:16)
[2022-01-15] MEDS: MAGNESIUM 1 GM/100 ML IVPB 100 ML IV SCH (05:16)
[2022-01-15] MEDS: POTASSIUM CL 10MEQ/50ML IVPB 50 ML IV SCH (05:16)
[2022-01-15] MEDS: inSUlin ASPART (NovoLOG) 1 UNIT/0.01 ML (CHARGE PER UNIT) SC SCH ×4 (05:17→20:38)
[2022-01-15 06:00] VITALS: BP 143/82
--- NOTE | 2022-01-15 09:24 | Tele-ICU Progress Note ---
Subjective Date Seen by a Provider: Jan 15, 2022 Subjective/Events-last exam This virtual visit was conducted using real time audio/video. Thank you for asking us to see this patient for respiratory insufficiency due to COPD and BOBO. Admitted with urosepsis, LILIANA. Recent events: Taken off BiPAP and started on 4 LPM NC. PE: VSS. Appears comfortable, obese on camera. O2 sat 98% on 4 LPM NC. HEENT: No obvious masses, adenopathy or JVD. Chest: coarse on auscultation. CV: RRR S1 S2 No murmur or added sounds. Abd: Non-tender. Bowel sounds Y. : Unremarkable. Shafer Y. LINE ASSEMBLER/psychiatric: Grossly intact. No obvious focal findings. Extremities: No edema. Capillary refill < 3 seconds. Skin: unremarkable. Results: Elevated BUN 23, Creat 1.49. Decreased Hb 11.5. B.35/55.4/129 on BiPAP. CXR: unremarkable. Available chart/ vitals / labs / images reviewed. Video assessment done using teleICU camera, rest of exam as per RN. A/P: Respiratory insufficiency: Continue present management with NC, PRN BiPAP. Cont. Duonebs. Monitor for increasing oxygenation needs and/or need for intubation. Critical Care: critically ill patient. Cont.abx,SSI, Hep SQ. Discussed with RN Faraz. Asked RN to reach out to eICU if any questions or concerns later. Time spent with patient/coordination of care with other health professionals (mins): 24 Sepsis Event Evaluation Height, Weight, BMI Height: 5'9.00" Weight: 260lbs. 0.0oz. 117.449196zc; 35.37 BMI Method:Stated Focused Exam Lactate Level 01/14/22 07:35: Lactic Acid Level 2.31*H 01/14/22 10:20: Lactic Acid Level 1.04 Time of Focused Exam: 08:45 Exam Exam Patient acknowledged, consented, and participated in this virtual visit which was conducted using real time audio/video Vital Signs Date Time Temp Pulse Resp B/P (MAP) Pulse Ox O2 Delivery O2 Flow Rate FiO2 01/15/22 08:56 Nasal Cannula 4.00 01/15/22 08:00 36.6 89 15 170/90 (116) 93 NIV Bilevel 25.00 01/15/22 07:32 36.9 01/15/22 07:00 36.6 85 23 136/77 (96) 94 NIV Bilevel 25.00 01/15/22 07:00 89 01/15/22 06:47 NIV Bilevel 30.00 01/15/22 06:00 37.2 87 21 143/82 (102) 99 NIV Bilevel 40.00 01/15/22 06:00 81 20 98 25.00 01/15/22 05:00 37.2 87 20 170/103 (125) 98 NIV Bilevel 40.00 01/15/22 04:00 37.1 80 20 154/82 (106) 99 NIV Bilevel 40.00 01/15/22 04:00 NIV Bilevel 40 01/15/22 03:00 37.3 76 20 112/56 (74) 95 NIV Bilevel 40.00 01/15/22 02:39 81 21 97 40.00 01/15/22 02:00 37.2 71 16 135/105 (115) 95 NIV Bilevel 40.00 01/15/22 01:00 37.1 80 16 145/89 (107) 98 NIV Bilevel 40.00 01/15/22 01:00 88 01/15/22 00:00 37.0 70 20 130/58 (82) 98 NIV Bilevel 40.00 01/14/22 23:40 NIV Bilevel 40 01/14/22 23:00 37.0 74 19 153/81 (105) 96 NIV Bilevel 40.00 01/14/22 22:56 75 20 94 40.00 01/14/22 22:00 36.9 75 20 142/86 (104) 99 NIV Bilevel 40.00 01/14/22 21:00 36.8 68 17 132/69 (90) 98 NIV Bilevel 40.00 01/14/22 20:00 36.8 68 19 128/69 (88) 100 NIV Bilevel 40.00 01/14/22 19:38 NIV Bilevel 40 01/14/22 19:37 36.7 01/14/22 19:36 15 97 NIV Bilevel 40.00 01/14/22 19:02 40.00 01/14/22 19:00 69 01/14/22 19:00 36.6 69 14 119/68 (85) 100 NIV Bilevel 60.00 01/14/22 18:56 69 21 97 50.00 01/14/22 18:03 NIV Bilevel 50.00 01/14/22 18:00 NIV Bilevel 50 01/14/22 18:00 36.3 69 14 142/87 (105) 97 NIV Bilevel 60.00 01/14/22 17:08 73 165/85 01/14/22 17:00 36.0 82 24 165/85 (111) 99 NIV Bilevel 60.00 01/14/22 16:03 73/45 01/14/22 16:00 35.8 55 20 113/64 (80) 97 NIV Bilevel 60.00 01/14/22 15:46 35.8 01/14/22 15:00 35.8 61 19 99/56 (70) 95 NIV Bilevel 60.00 01/14/22 14:00 55 20 95 50.00 01/14/22 14:00 35.7 60 27 96/67 (77) 99 NIV Bilevel 60.00 01/14/22 13:34 38.4 108 87 36 01/14/22 13:00 35.8 61 12 122/66 (84) 99 NIV Bilevel 60.00 01/14/22 13:00 68 01/14/22 12:00 NIV Bilevel 60 01/14/22 12:00 36.0 01/14/22 12:00 73 14 124/64 (84) 100 NIV Bilevel 60.00 01/14/22 11:00 87 19 136/86 (103) 95 NIV Bilevel 60.00 01/14/22 11:00 38.0 01/14/22 10:51 NIV Bilevel 60.00 01/14/22 10:38 86 01/14/22 10:30 80 19 96 60.00 01/14/22 10:00 92 OxyMask 10.00 01/14/22 10:00 OxyMask 10.00 01/14/22 10:00 85 22 100/56 (71) 97 OxyMask 10.00 01/14/22 09:50 37.2 82 21 132/118 (123) 97 OxyMask 10.00 01/14/22 09:33 70 102/61 96 OxyMask 10.00 I & O 01/15/22 07:00 Intake Total 3050 ml Output Total 1500 ml Balance 1550 ml Height & Weight Height: 5'9.00" Weight: 260lbs. 0.0oz. 117.948881lb; 35.37 BMI Method:Stated General Appearance: Chronically ill, Mild Distress, Obese HEENT: PERRL/EOMI, Moist Mucous Membranes; No Scleral Icterus (L), No Scleral Icterus (R) Neck: Normal Inspection, Supple; No JVD Respiratory: Accessory Muscle Use, Crackles (bases), Decreased Breath Sounds; No Wheezing Cardiovascular: Regular Rate, Rhythm, No JVD, No Murmur Capillary Refill: Less Than 3 Seconds Extremity: Normal Capillary Refill, No Calf Tenderness, No Pedal Edema Neurologic/Psychiatric: Alert, Oriented x3 (to person and place) Skin: Normal Color, Warm/Dry Results Lab Laboratory Tests 01/14/22 07:35 01/15/22 04:07 Assessment/Plan Assessment/Plan See free text. Critical Care: Critically Ill Patient LEONIE ROBLERO MD Jan 15, 2022 09:24
--- NOTE | 2022-01-15 09:53 | Progress Note - Hospitalist ---
Subjective HPI/CC On Admission Date Seen by Provider: Jan 15, 2022 Pt is a 76 year old male with PMH HTN, HLD, T2DM, CKD, chronic brady, recurrent UTIs due to MRD-E col who presented to the ER due to fever. He resides at [facility] and was found to have a temperature of 103 this morning and had a change in his mental status so vitals were taken and showed him to be hypoxic. He was satting 89% on 6 L and so was brought in for evaluation in the emergency room. They did do a COVID test which was negative. He is able to answer a couple of yes or no questions but is quite dyspneic on my exam and thus history is limited. He did shake his head when asked if he had not been feeling well. He denied any pain. He did agree that he was short of breath. He was found to have a urinary tract infection on work-up in the emergency department and was quite hypotensive with systolics in the 70s. He is admitted to the ICU for severe sepsis and IV antibiotics. Subjective/Events-last exam History limited as he's on bipap. Denies complaints though. Nods head when asked if he was feeling better. Focused Exam Lactate Level 01/14/22 07:35: Lactic Acid Level 2.31*H 01/14/22 10:20: Lactic Acid Level 1.04 Time of Focused Exam: 08:45 Objective Exam Vital Signs Vital Signs Date Time Temp Pulse Resp B/P (MAP) Pulse Ox O2 Delivery O2 Flow Rate FiO2 01/15/22 09:00 36.8 88 16 152/89 (110) 99 Nasal Cannula 4.00 01/15/22 04:00 40 Capillary Refill : Less Than 3 Seconds General Appearance: No Apparent Distress, Chronically ill, Obese Respiratory: Lungs Clear, No Respiratory Distress Cardiovascular: Regular Rate, Rhythm, No Murmur Gastrointestinal: Normal Bowel Sounds, Non Tender, Soft Neurologic/Psychiatric: Alert Results/Procedures Lab Laboratory Tests 01/15/22 04:07 Patient resulted labs reviewed. 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 2.2 to 1.49 baseline of 1.09 Monitor I/Os T2DM Sliding scale insulin HTN HLD CAD Continue home meds as able but antihypertensives held for hypotension Obesity Clinically significant, no acute management needs DVT prophylaxis: heparin Critical Care Critically Ill Patient Diagnosis/Problems Diagnosis/Problems (1) Severe sepsis Status: Acute (2) Urinary tract infection Status: Acute Qualifiers: Urinary tract infection type: site unspecified Hematuria presence: without hematuria Qualified Codes: N39.0 - Urinary tract infection, site not specified (3) Altered mental status Status: Acute Qualifiers: Altered mental status type: unspecified Qualified Codes: R41.82 - Altered mental status, unspecified (4) Acute kidney injury superimposed on chronic kidney disease Status: Acute (5) History of ESBL E. coli infection Status: Chronic (6) T2DM (type 2 diabetes mellitus) Status: Acute (7) Obesity Status: Chronic (8) COPD (chronic obstructive pulmonary disease) Status: Acute (9) Altered mental status Status: Acute LUPE ALVES MD Jan 15, 2022 09:53
[2022-01-15] MEDS ORDERED: VANCOMYCIN 2000 MG/NS 500 ML IVPB IV SCH ×2 (10:30)
[2022-01-15] MEDS: amLODIPine 5 MG (NORVASC) TAB PO SCH (14:43)
[2022-01-15] MEDS: meTOprolol TARTRATE 50 MG (LOPRESSOR) TAB PO SCH ×2 (14:43→20:14)
[2022-01-15 21:56] VITALS: BP 168/119
[2022-01-16 02:28] VITALS: BP 168/119
[2022-01-16] MEDS: RT-ALBUTEROL/IPRATROPIUM 3 ML (DUONEB) VIAL INH SCH ×6 (02:28→21:37)
[2022-01-16 03:52] LABS: BASOPHILS % (AUTO) 0 % (0-10); EOSINOPHILS # (AUTO) 0.4 10^3/uL (0.0-0.3); EOSINOPHILS % (AUTO) 4 % (0-10); HEMATOCRIT 38 % (40-54); HEMOGLOBIN 12.4 g/dL (13.3-17.7); LYMPHOCYTES # (AUTO) 1.6 10^3/uL (1.0-4.0); LYMPHOCYTES % (AUTO) 18 % (12-44); MEAN CORPUSCULAR HEMOGLOBIN 28 pg (25-34); MEAN CORPUSCULAR HGB CONC 32 g/dL (32-36); MEAN CORPUSCULAR VOLUME 87 fL (80-99); MEAN PLATELET VOLUME 9.8 fL (9.0-12.2); MONOCYTES # (AUTO) 0.7 10^3/uL (0.0-1.0); MONOCYTES % (AUTO) 8 % (0-12); NEUTROPHILS % (AUTO) 69 % (42-75); PLATELET COUNT 170 10^3/uL (130-400); WHITE BLOOD COUNT 8.7 10^3/uL (4.3-11.0)
[2022-01-16 04:01] LABS: POTASSIUM 3.8 MMOL/L (3.6-5.0)
[2022-01-16 04:02] LABS: CALCIUM 8.9 MG/DL (8.5-10.1)
[2022-01-16 04:06] LABS: PHOSPHORUS 2.1 MG/DL (2.3-4.7)
[2022-01-16 04:07] LABS: CREATININE SERUM 1.06 MG/DL (0.60-1.30)
[2022-01-16 04:09] LABS: MAGNESIUM 1.7 MG/DL (1.6-2.4)
[2022-01-16] MEDS: NOREPINEPHRINE 8 MG/250 ML 250 ML IV SCH ×2 (04:12→19:27)
[2022-01-16] MEDS: MAGNESIUM 1 GM/100 ML IVPB 100 ML IV SCH ×3 (04:58→05:56)
[2022-01-16] MEDS: POTASSIUM CL 10MEQ/50ML IVPB 50 ML IV SCH (05:04)
[2022-01-16] MEDS: KCL 20 MEQ TAB (K-DUR) PO SCH (05:04)
[2022-01-16] MEDS: inSUlin ASPART (NovoLOG) 1 UNIT/0.01 ML (CHARGE PER UNIT) SC SCH ×4 (05:04→20:58)
[2022-01-16] MEDS: MEROPENEM 500 MG/NS 100 ML IVPB IV SCH ×6 (05:18→20:58)
[2022-01-16 07:01] VITALS: BP 161/76
[2022-01-16] MEDS: meTOprolol TARTRATE 50 MG (LOPRESSOR) TAB PO SCH ×2 (08:16→20:58)
[2022-01-16] MEDS: amLODIPine 5 MG (NORVASC) TAB PO SCH (08:17)
[2022-01-16] MEDS ORDERED: PANT40TA52 PO (09:21)
[2022-01-16] MEDS ORDERED: METO5TAB2 PO (09:21)
[2022-01-16] MEDS ORDERED: TROUGH ORDER-PHARMACY XX NR (09:30)
--- NOTE | 2022-01-16 12:14 | Tele-ICU Progress Note ---
Subjective Date Seen by a Provider: Jan 16, 2022 Time Seen by a Provider: 12:14 Subjective/Events-last exam (Tele-ICU Physician , Progress Note ) Available chart/ vitals / labs / Images reviewed Video assessment done using teleICU camera, rest of exam as per RN Discussed with RN Events overnight : Afebrile hemodynamically stable Respiratory - I/O = neg 3 L Drips: Pressors- no Consultants: Hospital course: (01/14) 76M Admitted for AMS, sepsis UTI/ARF, hypoxia. COPD/BOBO hx. Also chronic UTI's with chronic brady and chronic bilateral hydronephrosis 01/16 A/P Sepsis -BP normalized with hydration - follow UTI, recurrent -brady ( ? chronic ) - replaced in ER -History of ESBL E coli Multiple prior urine cultures with ESBL E coli- started on MErrem based on previous cx -Cx urine 01/14 - Ecoli - blood - corineform an Straph CoagN - probably contaminant Acute hypoxic resp failure - ? VO after fluid resuscitation -CPAP at home ? - to cont nocturnal - cont nebs -cotn - avoid VO Lethargy / ? TME ( with h/o dementia _ back to baseline - AAx2 LILIANA on CKD - hydration stopped due to VO - Improving DM II - ISS h/o Esophageal candidiasis / Esophageal ulcer by EGD 10/25/21 - tx-ed Lines : Left subclavian 01/15 , (Central Line Necessity Reviewed) Brady: + OG: Nutrition: po Analgesia: Anxiety/ delirium VTE Prophylaxis: hep sq Stress Ulcer Prophylaxis: po Plans in collaboration with bedside consultants and IM MDs. Discussed with RN to reach out if any questions or concerns A total of 31 minutes of critical care time was devoted to this patient today, required to treat and/or prevent further deterioration of critical care condition ( as above ) . Sepsis Event Evaluation Height, Weight, BMI Height: 5'9.00" Weight: 260lbs. 0.0oz. 117.980086zb; 35.66 BMI Method:Stated Focused Exam Lactate Level 01/14/22 07:35: Lactic Acid Level 2.31*H 01/14/22 10:20: Lactic Acid Level 1.04 Time of Focused Exam: 08:45 Exam Exam Patient acknowledged, consented, and participated in this virtual visit which was conducted using real time audio/video Vital Signs Date Time Temp Pulse Resp B/P (MAP) Pulse Ox O2 Delivery O2 Flow Rate FiO2 01/16/22 11:00 74 16 186/89 (121) 92 NIV Bilevel 25.00 01/16/22 10:04 95 High Flow N/C 2.00 01/16/22 10:00 74 18 162/88 (112) 92 NIV Bilevel 25.00 01/16/22 09:00 78 18 164/93 (116) 96 NIV Bilevel 25.00 01/16/22 08:00 36.8 75 18 166/72 (103) 96 NIV Bilevel 25.00 01/16/22 07:01 80 19 92 25.00 01/16/22 07:00 36.9 69 17 161/76 (104) 92 NIV Bilevel 25.00 01/16/22 07:00 73 01/16/22 06:00 37.2 73 18 167/88 (114) 94 NIV Bilevel 25.00 01/16/22 05:00 37.4 76 19 150/79 (102) 92 NIV Bilevel 25.00 01/16/22 04:00 37.3 78 25 170/141 (151) 94 NIV Bilevel 25.00 01/16/22 03:51 NIV Bilevel 25 01/16/22 03:51 37.2 01/16/22 03:00 37.1 75 12 187/95 (125) 94 NIV Bilevel 25.00 01/16/22 02:28 83 18 97 25.00 01/16/22 02:00 36.9 77 16 183/93 (123) 91 NIV Bilevel 25.00 01/16/22 01:00 75 01/16/22 01:00 37.2 77 15 185/100 (128) 94 NIV Bilevel 25.00 01/16/22 00:00 37.2 82 20 161/87 (111) 98 NIV Bilevel 25.00 01/16/22 00:00 NIV Bilevel 25 01/15/22 23:28 37.3 01/15/22 23:00 37.2 79 19 162/84 (110) 97 NIV Bilevel 25.00 01/15/22 22:07 91 NIV Bilevel 25.00 01/15/22 22:00 37.5 76 15 150/75 (100) 93 Nasal Cannula 2.00 01/15/22 21:56 78 25 92 25.00 01/15/22 21:00 37.5 87 24 168/119 (135) 94 Nasal Cannula 2.00 01/15/22 20:00 Nasal Cannula 2.00 01/15/22 20:00 37.5 77 23 151/66 (94) 93 Nasal Cannula 2.00 01/15/22 19:17 37.3 01/15/22 19:00 90 01/15/22 19:00 37.5 86 25 179/85 (116) 96 Nasal Cannula 2.00 01/15/22 18:31 92 High Flow N/C 2.00 01/15/22 18:00 NIV Bilevel 25 01/15/22 18:00 37.4 85 13 173/81 (111) 96 Nasal Cannula 2.00 01/15/22 17:36 Nasal Cannula 2.00 01/15/22 17:04 97 177/78 01/15/22 17:00 37.3 92 25 177/78 (111) 92 NIV Bilevel 25.00 01/15/22 16:00 37.2 92 19 152/68 (96) 91 NIV Bilevel 25.00 01/15/22 15:44 37.2 01/15/22 15:39 NIV Bilevel 25.00 01/15/22 15:07 96 High Flow N/C 2.00 01/15/22 15:00 37.2 94 28 160/87 (111) 97 Nasal Cannula 4.00 01/15/22 14:51 Nasal Cannula 4.00 01/15/22 14:00 37.1 13 169/91 (117) 98 NIV Bilevel 25.00 01/15/22 13:24 NIV Bilevel 25.00 01/15/22 13:00 87 01/15/22 13:00 95 19 178/118 (138) 91 Nasal Cannula 5.00 I & O 01/16/22 07:00 Intake Total 2110 ml Output Total 6050 ml Balance -3940 ml Height & Weight Height: 5'9.00" Weight: 260lbs. 0.0oz. 117.347473fh; 35.66 BMI Method:Stated General Appearance: Chronically ill, Mild Distress, Obese HEENT: PERRL/EOMI, Moist Mucous Membranes; No Scleral Icterus (L), No Scleral Icterus (R) Neck: Normal Inspection, Supple; No JVD Respiratory: Accessory Muscle Use, Crackles (bases), Decreased Breath Sounds; No Wheezing Cardiovascular: Regular Rate, Rhythm, No JVD, No Murmur Capillary Refill: Less Than 3 Seconds Extremity: Normal Capillary Refill, No Calf Tenderness, No Pedal Edema Neurologic/Psychiatric: Alert, Oriented x3 (to person and place) Skin: Normal Color, Warm/Dry Results Lab Laboratory Tests 01/15/22 04:07 01/16/22 03:40 Assessment/Plan Assessment/Plan 1 LILLIAM KHAN MD Jan 16, 2022 12:14
[2022-01-16] MEDS: ENOXAPARIN 40 MG/0.4 ML (LOVENOX) SYR SC SCH (13:53)
--- NOTE | 2022-01-16 14:39 | Physical Therapy Evaluation ---
PT Evaluation-General Medical Diagnosis Admission Date Jan 14, 2022 at 08:47 Medical Diagnosis: severe sepsis/UTI Onset Date: Jan 14, 2022 Therapy Diagnosis Therapy Diagnosis: generalized weakness/debility Height/Weight Height (Feet): 5 Height (Inches): 9.00 Weight (Pounds): 260 Weight (Ounces): 0.0 Precautions Precautions/Isolations: Fall Prevention, Standard Precautions Referral Physician: Cristel Reason for Referral: Evaluation/Treatment Medical History Pertinent Medical History: Arthritis, CAD, COPD, DM, Dementia, HTN, Neuropathy Current History EMS from [place] secondary to fever and decreased SAO2 on 6L Reviewed History: Yes Social History Home: Skilled Nursing Prior Prior Level of Function SCALE: Activities may be completed with or without assistive devices. 9-Mcowtmglpo-vjmieml completes the activity by him/herself with no assistance from a helper. 5-Set-up or Clean-up Assistance-helper sets up or cleans up; patient completes activity. [place] assists only prior to or following the activity. 4-Supervision or Touching Assistance-helper provides verbal cues and/or touching/steadying and/or contact guard assistance as patient completes activity. Assistance may be provided throughout the activity or intermittently. 3-Partial/Moderate Assistance-helper does LESS THAN HALF the effort. [place] lifts, holds or supports trunk or limbs, but provides less than half the effort. 2-Substantial/Maximal Assistance-helper does MORE THAN HALF the effort. [place] lifts or holds trunk or limbs and provides more than half the effort. 2-Bvjyxidmz-hfjaay does ALL the effort. Patient does none of the effort to complete the activity. Or, the assistance of 2 or more helpers is required for the patient to complete the activity. If activity was not attempted, code reason: 7-Patient Refused. 9-Not Applicable-not attempted and the patient did not perform the activity before the current illness, exacerbation or injury. 10-Not Attempted due to Environmental Limitations-(lack of equipment, weather restraints, etc.). 88-Not Attempted due to Medical Conditions or Safety Concerns. Bed Mobility: 2 Transfers (B,C,W/C): 3 Gait: 4 Stairs: 9 Indoor Mobility (Ambulation): Needed Some Help Stairs: Not Applical[place] Prior Devices Use: Manual wheelchair, Walker PT Evaluation-Current Subjective Patient agrees to PT. Objective Patient Orientation: Person Attachments: Central Line, Oxygen, Shafer Catheter, IV ROM/Strength ROM Lower Extremities bilateral LE WFL Strength Lower Extremities 3-/5 grossly bilateral LE all planes Integumentary/Posture Integumentary refer to nursing notes Bladder Incontinence: Shafer Cath Posture kyphotic Neuromuscular (Tone, Coordination, Reflexes) grossly intact/noted tremors bilateral UE's Sensory Vision: Functional Hearing: Functional Transfers Roll Left to Right (QC): 1 Sit to Lying (QC): 1 (x 2) Lying to Sitting/Side of Bed(Q: 1 Sit to Stand (QC): 2 Gait Does the Patient Walk?: No and Walking Goal IS indicated Mode of Locomotion: Both Anticipated Mode of Locomotion: Both Distance: 5 side steps Gait Assistive Device: FWW Balance Sitting Static: Normal Sitting Dynamic: Normal Standing Static: Fair Standing Dynamic: Fair Assessment/Needs 76 y.o. male, will benefit from skilled PT to address functional strength and mobility to improve current LOF. Patient is currently dependent to max assist with all mobility. 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 [facility] Goals PT [facility] Goals Time Frame: Feb 11, 2022 Roll Left & Right (QC): 3 Sit to Lying (QC): 3 Lying-Sitting on Side/Bed(QC): 3 Sit to Stand (QC): 3 Chair/Zrw-tx-Thlnp Xfer(QC): 3 Toilet Transfer (QC): 3 Walk 10 feet (QC): 3 Walk 50ft with 2 Turns (QC): 3 PT Plan Problem List Problem List: Activity Tolerance, Functional Strength, Safety, Balance, Gait, Transfer, Bed Mobility Treatment/Plan Treatment Plan: Continue Plan of Care Treatment Plan: Bed Mobility, Education, Functional Activity Mehdi, Functional Strength, Gait, Safety, Therapeutic Exercise, Transfers Treatment Duration: Feb 11, 2022 Frequency: 6 times per week Estimated Hrs Per Day: .25 hour per day Time/GCodes Time In: 1415 Time Out: 1434 Total Billed Treatment Time: 19 Total Billed Treatment 1 visit EVModC 19 min SHERLY BRADLEY PT Jan 16, 2022 14:39
--- NOTE | 2022-01-16 15:14 | Occupational Therapy Eval ---
OT Evaluation-General/PLF Medical Diagnosis Admission Date Jan 14, 2022 at 08:47 Medical Diagnosis: severe sepsis/UTI Onset Date: Jan 14, 2022 Therapy Diagnosis Therapy Diagnosis: decreased ADL status Height/Weight Height (Feet): 5 Height (Inches): 9.00 Weight (Pounds): 260 Weight (Ounces): 0.0 Precautions Precautions/Isolations: Fall Prevention, Standard Precautions Referral Physician: Cristel Referral Reason: Evaluation/Treatment Medical History Pertinent Medical History: Arthritis, CAD, COPD, DM, Dementia, HTN, Neuropathy Additional Medical History HTN, HLD, DM, CKD, chronic brady, recurrent UTI, PNA, sleep apnea, COPD, dementia, neuropathy, BPH, arthritis, anxiety/depression Current History 01/14/22 ED due to fever (103 degrees), AMS, hypoxia. Found to have UTI and hypotensive. Admitted to ICU for severe sepsis and IV antibiotics. Social History Home: Longterm ADL-Prior Level of Function SCALE: Activities may be completed with or without assistive devices. 6-Okoqfazqcb-gfufnmc completes the activity by him/herself with no assistance from a helper. 5-Set-up or Clean-up Assistance-helper sets up or cleans up; patient completes activity. [place] assists only prior to or following the activity. 4-Supervision or Touching Assistance-helper provides verbal cues and/or touching/steadying and/or contact guard assistance as patient completes activity. Assistance may be provided throughout the activity or intermittently. 3-Partial/Moderate Assistance-helper does LESS THAN HALF the effort. [place] lifts, holds or supports trunk or limbs, but provides less than half the effort. 2-Substantial/Maximal Assistance-helper does MORE THAN HALF the effort. [place] lifts or holds trunk or limbs and provides more than half the effort. 4-Tgdxmzjho-darcqb does ALL the effort. Patient does none of the effort to complete the activity. Or, the assistance of 2 or more helpers is required for the patient to complete the activity. If activity was not attempted, code reason: 7-Patient Refused. 9-Not Applicable-not attempted and the patient did not perform the activity before the current illness, exacerbation or injury. 10-Not Attempted due to Environmental Limitations-(lack of equipment, weather restraints, etc.). 88-Not Attempted due to Medical Conditions or Safety Concerns. ADL PLOF Comments Pt unable to provide much information about PLOF. He primarily uses a w/c for functional mobility, but uses a walker during transfers. He requires assistance with ADLs, including showering, dressing, and feeding per pt report. Self Care: Needed Some Help Functional Cognition: Needed Some Help OT Current Status Subjective Pt in bed, agreeable to OT Tx. Mental Status/Objective Patient Orientation: Person, Confused Attachments: Chest Tube, Brady Catheter, IV, Oxygen Current Hand Dominance: Left Upper Extremity ROM Decreased R hand flexion/extension, contractures noted in digits 3-4. Upper Extremity Coordination Decreased bilaterally. Tremors noted in L hand at rest, R hand contractures Upper Extremity Strength grossly 3-/5 ADL-Treatment Eating (QC): 3 (Assist from nursing per chart review. Pt reports requiring assistance at baseline) Oral Hygiene (QC): 4 (SBA with oral sponge, min VCs.) On/Off Footwear (QC): 1 (This is baseline) Toileting Hygiene (QC): 1 (Chronic Brady Catheter.) Other Treatments Pt in bed, agreeable to OT evaluation. Pt provided information about PLOF to his ability, and participated in UE screen. Pt reports requiring assistance with all ADLs, including feeding at PLOF. Noted tremors L hand, and contractures R hand, this is baseline. Pt reports requiring assistance with all ADLs at PLOF. Pt able to use oral swab to brush gums and tongue with min verbal cues. Pt declines other ADLs at this time. Pt educated on UE exercises in order to increase BUE strength and activity tolerance. Post tx, pt in bed, call light in reach and all needs met. Education OT Patient Education: Correct positioning, Energy conservation, Modified ADL techniques, Progress toward Goal/Update tx plan, Purpose of tx/functional activities, Rehab process Teaching Recipient: Patient Teaching Methods: Discussion Response to Teaching: Reinforcement Needed OT Correction Goals Correction Goals 1=Demonstrate adherence to instructed precautions during ADL tasks. 2=Patient will verbalize/demonstrate understanding of assistive devices/modifications for ADL. 3=Patient will improve strength/tolerance for activity to enable patient to perform ADL's. OT Education/Plan Problem List/Assessment Assessment: No Skilled OT Needs ID'd No skilled OT Services indicated at this time. Pt requires assistance with all ADLs at PLOF, and is at baseline. D/C from OT at this time. Discharge Recommendations Plan/Recommendations: Discharge/Goals Met Treatment Plan/Plan of Care Patient would benefit from OT for education, treatment and training to promote independence in ADL's, mobility, safety and/or upper extremity function for AD L's. Plan of Care: ADL Retraining, UE Funct Exercise/Act Treatment Duration: Jan 27, 2022 Frequency: 1 time per week (eval only) Estimated Hrs Per Day: .25 hour per day Rehab Potential: Guarded Time/GCodes Start Time: 14:52 Stop Time: 15:04 Total Time Billed (hr/min): 12 Billed Treatment Time 1, MINOO SANTANA OT Jan 16, 2022 15:14
[2022-01-16] MEDS: hydrALAZINE (APESOLINE) 20 MG/ML VIAL IV PRN (16:30)
[2022-01-16] MEDS ORDERED: ENALAPRILAT 2.5 MG/2 ML (VASOTEC) VIAL IV NR (17:30)
--- NOTE | 2022-01-16 18:44 | Progress Note - Hospitalist ---
Subjective HPI/CC On Admission Date Seen by Provider: Jan 16, 2022 Time Seen by Provider: 10:35 Pt is a 76 year old male with PMH HTN, HLD, T2DM, CKD, chronic brady, recurrent UTIs due to MRD-E col who presented to the ER due to fever. He resides at [facility] and was found to have a temperature of 103 this morning and had a change in his mental status so vitals were taken and showed him to be hypoxic. He was satting 89% on 6 L and so was brought in for evaluation in the emergency room. They did do a COVID test which was negative. He is able to answer a couple of yes or no questions but is quite dyspneic on my exam and thus history is limited. He did shake his head when asked if he had not been feeling well. He denied any pain. He did agree that he was short of breath. He was found to have a urinary tract infection on work-up in the emergency department and was quite hypotensive with systolics in the 70s. He is admitted to the ICU for severe sepsis and IV antibiotics. Subjective/Events-last exam He is feeling a bit better. He denies pain. He denies shortness of breath. Focused Exam Lactate Level 01/14/22 07:35: Lactic Acid Level 2.31*H 01/14/22 10:20: Lactic Acid Level 1.04 Time of Focused Exam: 08:45 Objective Exam Vital Signs Vital Signs Date Time Temp Pulse Resp B/P (MAP) Pulse Ox O2 Delivery O2 Flow Rate FiO2 01/16/22 18:00 80 16 187/94 (125) 95 Nasal Cannula 2.00 01/16/22 16:01 36.9 01/16/22 08:00 25 Capillary Refill : Less Than 3 Seconds General Appearance: No Apparent Distress, Obese Respiratory: Lungs Clear, No Respiratory Distress Cardiovascular: Regular Rate, Rhythm, No Murmur Gastrointestinal: Normal Bowel Sounds, Soft Extremity: Normal Inspection, Pedal Edema Neurologic/Psychiatric: Alert, Normal Mood/Affect, Motor Weakness Skin: Normal Color, Warm/Dry Results/Procedures Lab Laboratory Tests 01/16/22 03:40 Patient resulted labs reviewed. Assessment/Plan Assessment and Plan Assess & Plan/Chief Complaint ESBL E coli UTI History of MDR-E coli Became hypotensive yesterday and due to worsening respiratory status elected to start pressors Levophed currently held Multiple prior urine cultures with ESBL E coli UA consistent with UTI Await cultures Continue Merrem Acute hypoxic respiratory failure COPD Off BiPAP MAT protocol CKD 2 Returned to baseline Monitor I/Os T2DM Sliding scale insulin HTN HLD CAD Continue home meds as able but antihypertensives held for hypotension Obesity Clinically significant, no acute management needs DVT prophylaxis: Lovenox Septic Shock, resolved Septic encephalopathy, resolved LILIANA, resolved Diagnosis/Problems Diagnosis/Problems (1) Septic shock Status: Acute (2) UTI due to extended-spectrum beta lactamase (ESBL) producing Escherichia coli Status: Acute (3) Acute kidney injury Status: Acute (4) T2DM (type 2 diabetes mellitus) Status: Acute (5) Obesity Status: Chronic (6) COPD (chronic obstructive pulmonary disease) Status: Chronic SAMI LAM MD Jan 16, 2022 18:44
[2022-01-16 21:38] VITALS: BP 160/112
[2022-01-16] MEDS ORDERED: ENALAPRILAT 2.5 MG/2 ML (VASOTEC) VIAL IV PRN (23:30)
[2022-01-17] MEDS: hydrALAZINE (APESOLINE) 20 MG/ML VIAL IV PRN (01:57)
[2022-01-17] MEDS: RT-ALBUTEROL/IPRATROPIUM 3 ML (DUONEB) VIAL INH SCH ×6 (02:07→21:48)
[2022-01-17] MEDS: ONDANSETRON 4 MG/2 ML (SDV) Z0FRAN IV PRN ×2 (04:54→12:56)
[2022-01-17 04:56] LABS: BASOPHILS % (AUTO) 0 % (0-10); EOSINOPHILS # (AUTO) 0.2 10^3/uL (0.0-0.3); EOSINOPHILS % (AUTO) 2 % (0-10); HEMATOCRIT 42 % (40-54); HEMOGLOBIN 13.7 g/dL (13.3-17.7); LYMPHOCYTES # (AUTO) 1.2 10^3/uL (1.0-4.0); LYMPHOCYTES % (AUTO) 13 % (12-44); MEAN CORPUSCULAR HEMOGLOBIN 28 pg (25-34); MEAN CORPUSCULAR HGB CONC 32 g/dL (32-36); MEAN CORPUSCULAR VOLUME 86 fL (80-99); MONOCYTES # (AUTO) 0.6 10^3/uL (0.0-1.0); MONOCYTES % (AUTO) 7 % (0-12); NEUTROPHILS # (AUTO) 6.7 10^3/uL (1.8-7.8); NEUTROPHILS % (AUTO) 77 % (42-75); PLATELET COUNT 196 10^3/uL (130-400); WHITE BLOOD COUNT 8.6 10^3/uL (4.3-11.0)
[2022-01-17] MEDS: MEROPENEM 500 MG/NS 100 ML IVPB IV SCH ×6 (05:01→20:45)
[2022-01-17 05:10] LABS: POTASSIUM 3.9 MMOL/L (3.6-5.0)
[2022-01-17 05:11] LABS: CALCIUM 9.3 MG/DL (8.5-10.1)
[2022-01-17 05:15] LABS: PHOSPHORUS 2.7 MG/DL (2.3-4.7)
[2022-01-17 05:16] LABS: CREATININE SERUM 1.15 MG/DL (0.60-1.30)
[2022-01-17] MEDS: POTASSIUM CL 10MEQ/50ML IVPB 50 ML IV SCH (05:16)
[2022-01-17] MEDS: KCL 20 MEQ TAB (K-DUR) PO SCH (05:16)
[2022-01-17 05:18] LABS: MAGNESIUM 1.9 MG/DL (1.6-2.4)
[2022-01-17] MEDS: MAGNESIUM 1 GM/100 ML IVPB 100 ML IV SCH (05:23)
[2022-01-17] MEDS: NOREPINEPHRINE 8 MG/250 ML 250 ML IV SCH ×2 (05:26→19:12)
[2022-01-17] MEDS: inSUlin ASPART (NovoLOG) 1 UNIT/0.01 ML (CHARGE PER UNIT) SC SCH ×4 (05:31→20:16)
[2022-01-17] MEDS: meTOprolol TARTRATE 50 MG (LOPRESSOR) TAB PO SCH ×2 (08:02→20:45)
[2022-01-17] MEDS: amLODIPine 5 MG (NORVASC) TAB PO SCH (08:02)
--- NOTE | 2022-01-17 08:43 | Physical Therapy Daily Note ---
PT Daily Note-Current Subjective Patient agrees to PT. Mental Status Patient Orientation: Person Attachments: Oxygen, Shafer Catheter Transfers SCALE: Activities may be completed with or without assistive devices. 9-Tvtfwgxazv-btwejal completes the activity by him/herself with no assistance from a helper. 5-Set-up or Clean-up Assistance-helper sets up or cleans up; patient completes activity. [place] assists only prior to or following the activity. 4-Supervision or Touching Assistance-helper provides verbal cues and/or touching/steadying and/or contact guard assistance as patient completes activity. Assistance may be provided throughout the activity or intermittently. 3-Partial/Moderate Assistance-helper does LESS THAN HALF the effort. [place] lifts, holds or supports trunk or limbs, but provides less than half the effort. 2-Substantial/Maximal Assistance-helper does MORE THAN HALF the effort. [place] lifts or holds trunk or limbs and provides more than half the effort. 9-Fghpfonez-ivjowm does ALL the effort. Patient does none of the effort to complete the activity. Or, the assistance of 2 or more helpers is required for the patient to complete the activity. If activity was not attempted, code reason: 7-Patient Refused. 9-Not Applicable-not attempted and the patient did not perform the activity before the current illness, exacerbation or injury. 10-Not Attempted due to Environmental Limitations-(lack of equipment, weather restraints, etc.). 88-Not Attempted due to Medical Conditions or Safety Concerns. Lying to Sitting/Side of Bed(Q: 2 Sit to Stand (QC): 3 Chair/Fju-zc-Achqk Xfer(QC): 3 Gait Training Distance: 10' x 2 Walk 10 feet (QC): 3 Gait Assistive Device: FWW functional gait sequence Exercises Supine Ex: Ankle pumps, Quad Set, Heel Slides, Straight leg raise Supine Reps: 10 Seated Therapy Exercises: Long arc quads Seated Reps: 10 Assessment Patient requires time to complete all functional tasks. Patient stood in front of recliner for 5 min. PT to increase activity as tolerated by patient. PT Jail Goals [place]ing [place] Goals PT [place] Goals Time Frame: Feb 11, 2022 Roll Left & Right (QC): 3 Sit to Lying (QC): 3 Lying-Sitting on Side/Bed(QC): 3 Sit to Stand (QC): 3 Chair/Bbw-ve-Opqyw Xfer(QC): 3 Toilet Transfer (QC): 3 Walk 10 feet (QC): 3 Walk 50ft with 2 Turns (QC): 3 PT Plan Treatment/Plan Treatment Plan: Continue Plan of Care Treatment Plan: Bed Mobility, Education, Functional Activity Mehdi, Functional Strength, Gait, Safety, Therapeutic Exercise, Transfers Treatment Duration: Feb 11, 2022 Frequency: 6 times per week Estimated Hrs Per Day: .25 hour per day Time/GCodes Time In: 733 Time Out: 756 Total Billed Treatment Time: 23 Total Billed Treatment 1 visit EX 13 min FA 10 min SHERLY BRADLEY PT Jan 17, 2022 08:43
--- NOTE | 2022-01-17 09:57 | Tele-ICU Progress Note ---
Subjective Date Seen by a Provider: Jan 17, 2022 Time Seen by a Provider: 09:57 Subjective/Events-last exam Available chart/ vitals / labs / Images reviewed Video assessment done using teleICU camera, rest of exam as per RN Discussed with RN Events overnight : Afebrile hemodynamically stable Respiratory - 2L I/O = neg 2 L Drips: Pressors- no Consultants: Hospital course: (01/14) 76M Admitted for AMS, sepsis UTI/ARF, hypoxia. COPD/BOBO hx. Also chronic UTI's with chronic brady and chronic bilateral hydronephrosis 01/16 A/P Sepsis -BP normalized with hydration - follow UTI, recurrent -brady ( ? chronic ) - replaced in ER -History of ESBL E coli -Multiple prior urine cultures with ESBL E coli- started on MErrem based on sensitivity - NEED TO DECIDE ON DURATION OF IV ABX - MIGHT NEED PICC ( WILL REPEAT BLOOD CX ) -Cx urine 01/14 - Ecoli - blood - corineform an Straph CoagN - probably contaminant Acute hypoxic resp failure - ? VO after fluid resuscitation -CPAP at home ? - to cont nocturnal - LAST NIGHT DID NOT WANT TO WEAR IT - on 2 h - cont nebs -cotn 02 - avoid VO Lethargy / ? TME ( with h/o dementia _ back to baseline - AAx2 HTN - cont meds LILIANA on CKD - hydration stopped due to VO - Improving DM II - ISS h/o Esophageal candidiasis / Esophageal ulcer by EGD 10/25/21 - tx-ed Lines : Left subclavian 01/15 , (Central Line Necessity Reviewed) Brady: + OG: Nutrition: po Analgesia: Anxiety/ delirium VTE Prophylaxis: conrado sq Stress Ulcer Prophylaxis: po Plans in collaboration with bedside consultants and IM MDs. Discussed with RN to reach out if any questions or concerns A total of 31 minutes of critical care time was devoted to this patient today, required to treat and/or prevent further deterioration of critical care conditi on ( as above ) . Sepsis Event Evaluation Height, Weight, BMI Height: 5'9.00" Weight: 260lbs. 0.0oz. [id number]; 35.73 BMI Method:Stated Focused Exam Lactate Level 01/14/22 10:20: Lactic Acid Level 1.04 Time of Focused Exam: 08:45 Exam Exam Patient acknowledged, consented, and participated in this virtual visit which was conducted using real time audio/video Vital Signs Date Time Temp Pulse Resp B/P (MAP) Pulse Ox O2 Delivery O2 Flow Rate FiO2 01/17/22 09:00 85 26 162/82 (108) 98 High Flow N/C 2.00 01/17/22 08:15 Nasal Cannula 2.00 01/17/22 08:06 86 20 109/71 (84) 97 High Flow N/C 2.00 01/17/22 07:38 37.0 01/17/22 07:03 89 01/17/22 07:00 87 17 137/71 (93) 95 High Flow N/C 2.00 01/17/22 06:43 91 High Flow N/C 2.00 01/17/22 06:00 88 17 133/66 (88) 93 High Flow N/C 2.00 01/17/22 05:00 93 22 175/69 (104) 93 High Flow N/C 2.00 01/17/22 04:49 37.3 01/17/22 04:00 98 18 153/92 (112) 94 High Flow N/C 2.00 01/17/22 04:00 Nasal Cannula 2.00 01/17/22 03:00 100 14 148/83 (104) 93 High Flow N/C 2.00 01/17/22 02:06 98 High Flow N/C 2.00 01/17/22 02:00 96 20 140/82 (101) 98 High Flow N/C 2.00 01/17/22 01:10 87 01/17/22 01:00 86 12 180/113 (135) 91 High Flow N/C 2.00 01/17/22 00:45 91 20 176/95 (122) 91 High Flow N/C 2.00 01/16/22 23:56 Nasal Cannula 2.00 01/16/22 23:55 37.2 87 20 155/96 (115) 92 High Flow N/C 2.00 01/16/22 23:16 High Flow N/C 2.00 01/16/22 23:00 93 14 148/92 (110) 95 NIV Bilevel 25.00 01/16/22 22:00 86 15 127/75 (92) 94 NIV Bilevel 25.00 01/16/22 21:38 88 19 96 25.00 01/16/22 21:30 NIV Bilevel 25.00 01/16/22 21:00 87 13 162/96 (118) 95 Nasal Cannula 2.00 01/16/22 19:58 Nasal Cannula 2.00 01/16/22 19:56 37.3 82 18 141/86 (104) 93 Nasal Cannula 2.00 01/16/22 19:52 37.4 01/16/22 19:27 80 187/94 01/16/22 19:14 95 High Flow N/C 2.00 01/16/22 19:00 87 01/16/22 19:00 83 15 187/105 (132) 96 Nasal Cannula 2.00 01/16/22 18:00 80 16 187/94 (125) 95 Nasal Cannula 2.00 01/16/22 17:00 84 24 105/118 (114) 94 Nasal Cannula 2.00 01/16/22 16:01 36.9 01/16/22 16:00 Nasal Cannula 2.00 01/16/22 16:00 81 20 204/117 (146) 93 Nasal Cannula 2.00 01/16/22 15:14 96 High Flow N/C 2.00 01/16/22 15:00 79 13 185/96 (125) 96 Nasal Cannula 2.00 01/16/22 14:00 78 18 179/132 (148) 96 Nasal Cannula 2.00 01/16/22 13:00 75 13 179/97 (124) 95 Nasal Cannula 2.00 01/16/22 12:44 80 01/16/22 12:00 35.9 Nasal Cannula 2.00 01/16/22 12:00 Nasal Cannula 2.00 01/16/22 12:00 75 13 189/103 (131) 95 Nasal Cannula 2.00 01/16/22 11:00 74 16 186/89 (121) 92 Nasal Cannula 2.00 01/16/22 10:04 95 High Flow N/C 2.00 01/16/22 10:00 74 18 162/88 (112) 92 Nasal Cannula 2.00 I & O 01/17/22 07:00 Intake Total 2990 ml Output Total 4900 ml Balance -1910 ml Height & Weight Height: 5'9.00" Weight: 260lbs. 0.0oz. [id number]; 35.73 BMI Method:Stated General Appearance: No Apparent Distress, Obese HEENT: PERRL/EOMI, Moist Mucous Membranes; No Scleral Icterus (L), No Scleral Icterus (R) Neck: Normal Inspection, Supple; No JVD Respiratory: Lungs Clear, No Respiratory Distress Cardiovascular: Regular Rate, Rhythm, No Murmur Capillary Refill: Less Than 3 Seconds Extremity: Normal Inspection, Pedal Edema Neurologic/Psychiatric: Alert, Normal Mood/Affect, Motor Weakness Skin: Normal Color, Warm/Dry Results Lab Laboratory Tests 01/16/22 03:40 01/17/22 04:47 Assessment/Plan Assessment/Plan 1 LILLIAM KHAN MD Jan 17, 2022 09:57
[2022-01-17] MEDS: ENOXAPARIN 40 MG/0.4 ML (LOVENOX) SYR SC SCH (13:57)
[2022-01-17 16:02] VITALS: BP 161/92
--- NOTE | 2022-01-17 18:10 | Progress Note - Hospitalist ---
Subjective HPI/CC On Admission Date Seen by Provider: Jan 17, 2022 Time Seen by Provider: 10:15 Pt is a 76 year old male with PMH HTN, HLD, T2DM, CKD, chronic brady, recurrent UTIs due to MRD-E col who presented to the ER due to fever. He resides at [facility] and was found to have a temperature of 103 this morning and had a change in his mental status so vitals were taken and showed him to be hypoxic. He was satting 89% on 6 L and so was brought in for evaluation in the emergency room. They did do a COVID test which was negative. He is able to answer a couple of yes or no questions but is quite dyspneic on my exam and thus history is limited. He did shake his head when asked if he had not been feeling well. He denied any pain. He did agree that he was short of breath. He was found to have a urinary tract infection on work-up in the emergency department and was quite hypotensive with systolics in the 70s. He is admitted to the ICU for severe sepsis and IV antibiotics. Subjective/Events-last exam He is feeling better. He is sitting in his chair. He was able to walk around the room a bit with therapy today. He denies pain. His is present. Focused Exam Time of Focused Exam: 08:45 Objective Exam Vital Signs Vital Signs Date Time Temp Pulse Resp B/P (MAP) Pulse Ox O2 Delivery O2 Flow Rate FiO2 01/17/22 16:02 36.9 91 18 161/92 (115) 93 Nasal Cannula 2.00 01/16/22 08:00 25 Capillary Refill : Less Than 3 Seconds General Appearance: No Apparent Distress, Obese Respiratory: Lungs Clear, No Respiratory Distress Cardiovascular: Regular Rate, Rhythm, No Murmur Gastrointestinal: Normal Bowel Sounds, Non Tender, Soft Extremity: Normal Inspection, Pedal Edema Neurologic/Psychiatric: Alert, Motor Weakness Results/Procedures Lab Laboratory Tests 01/17/22 04:47 Patient resulted labs reviewed. Assessment/Plan Assessment and Plan Assess & Plan/Chief Complaint ESBL E coli UTI History of MDR-E coli UA consistent with UTI Culture with ESBL Continue Merrem Placing midline Plan for continued IV antibiotics at [facility], likely discharge tomorrow Acute hypoxic respiratory failure COPD Wean oxygen as able MAT protocol CKD 2 Returned to baseline Monitor I/Os T2DM Sliding scale insulin HTN HLD CAD Continue home meds as able but antihypertensives held for hypotension Obesity Clinically significant, no acute management needs Debility PT/OT DVT prophylaxis: Lovenox Septic Shock, resolved Septic encephalopathy, resolved LILIANA, resolved Diagnosis/Problems Diagnosis/Problems (1) Septic shock Status: Resolved Resolution Date/Time: 01/17/22 @ 18:09 (2) UTI due to extended-spectrum beta lactamase (ESBL) producing Escherichia coli Status: Acute (3) Acute kidney injury Status: Resolved Resolution Date/Time: 01/17/22 @ 18:09 (4) T2DM (type 2 diabetes mellitus) Status: Acute (5) Obesity Status: Chronic (6) COPD (chronic obstructive pulmonary disease) Status: Chronic SAMI LAM MD Jan 17, 2022 18:09
[2022-01-17 19:39] VITALS: BP 121/59
[2022-01-18 00:08] VITALS: BP 152/81
[2022-01-18] MEDS: RT-ALBUTEROL/IPRATROPIUM 3 ML (DUONEB) VIAL INH SCH ×3 (02:38→10:06)
[2022-01-18 04:38] VITALS: BP 137/84
[2022-01-18 05:06] LABS: BASOPHILS % (AUTO) 0 % (0-10); EOSINOPHILS # (AUTO) 0.5 10^3/uL (0.0-0.3); EOSINOPHILS % (AUTO) 5 % (0-10); HEMATOCRIT 42 % (40-54); HEMOGLOBIN 13.3 g/dL (13.3-17.7); LYMPHOCYTES # (AUTO) 1.6 10^3/uL (1.0-4.0); LYMPHOCYTES % (AUTO) 17 % (12-44); MEAN CORPUSCULAR HEMOGLOBIN 28 pg (25-34); MEAN CORPUSCULAR HGB CONC 32 g/dL (32-36); MEAN CORPUSCULAR VOLUME 87 fL (80-99); MEAN PLATELET VOLUME 10.2 fL (9.0-12.2); MONOCYTES # (AUTO) 0.6 10^3/uL (0.0-1.0); MONOCYTES % (AUTO) 7 % (0-12); NEUTROPHILS # (AUTO) 6.5 10^3/uL (1.8-7.8); NEUTROPHILS % (AUTO) 70 % (42-75); PLATELET COUNT 199 10^3/uL (130-400); WHITE BLOOD COUNT 9.2 10^3/uL (4.3-11.0)
[2022-01-18 05:21] LABS: CALCIUM 9.2 MG/DL (8.5-10.1)
[2022-01-18 05:25] LABS: CREATININE SERUM 1.31 MG/DL (0.60-1.30); PHOSPHORUS 3.9 MG/DL (2.3-4.7)
[2022-01-18 05:27] LABS: MAGNESIUM 2.1 MG/DL (1.6-2.4)
[2022-01-18] MEDS: POTASSIUM CL 10MEQ/50ML IVPB 50 ML IV SCH (05:41)
[2022-01-18] MEDS: MAGNESIUM 1 GM/100 ML IVPB 100 ML IV SCH (05:41)
[2022-01-18] MEDS: KCL 20 MEQ TAB (K-DUR) PO SCH (05:42)
[2022-01-18] MEDS: inSUlin ASPART (NovoLOG) 1 UNIT/0.01 ML (CHARGE PER UNIT) SC SCH ×2 (05:42→11:22)
[2022-01-18] MEDS: MEROPENEM 500 MG/NS 100 ML IVPB IV SCH ×2 (05:50)
[2022-01-18 08:21] VITALS: BP 167/87
[2022-01-18] MEDS: amLODIPine 5 MG (NORVASC) TAB PO SCH (08:35)
[2022-01-18] MEDS: meTOprolol TARTRATE 50 MG (LOPRESSOR) TAB PO SCH (08:35)
[2022-01-18] MEDS: NOREPINEPHRINE 8 MG/250 ML 250 ML IV SCH (09:45)
[2022-01-18] MEDS: ONDANSETRON 4 MG/2 ML (SDV) Z0FRAN IV PRN (09:53)
[2022-01-18 11:01] VITALS: BP 138/87
[2022-01-18] MEDS ORDERED: ERTA1VIA4 IJ ×2 (12:15→12:16)
[2022-01-18] MEDS ORDERED: INSU100I10 SQ (12:17)
--- NOTE | 2022-01-18 12:19 | Discharge Inst-Skilled Nursing ---
Discharge Inst-Skilled NF Patient Instructions Patient Instructions: Take medications as prescribed. Follow up during the next fpc rounds. Return with worsening symptoms. Consult/Follow Up/Orders Follow Up Appt.: next fpc rounds Skilled NF Admit to: [facility] [place] Certification (SNF) I certify that SNF services are required to be given on an inpatient basis bec ause of the above named patient's need for correction care on a continuing basis for the conditions(s) for which he/she was receiving inpatient hospital services prior to his/her transfer to the SNF. Half-Way Facility Order: Nursing Services, [employer]-Evaluate & Treat, Physical Therapy-Evaluate & Treat Oxygen Delivery Method: Nasal Cannula Discharge Diet: ADA Diet Daily Activity as Tolerated: Yes Resuscitation Status: Full Code New & Resume Previous Orders Eneida Lam Jan 18, 2022 12:18 ENEIDA LAM MD Jan 18, 2022 12:19
[2022-01-18 13:58] VITALS: BP 138/87
== END 2022-01-18 13:58 | DRG 871 ==
LOC: EDUNIT# 07:28 → ER 07:29 → ICU 08:47 → 4TH 01-17 14:54
PROVIDERS: ADMIT Family Medicine; ATTEND Internal Medicine
PROC: 02HV33Z Insertion of Infusion Device into Superior Vena Cava, Percutaneous Approach (ICD-10-PCS; principal; 2022-01-14)
PROC: 5A09357 Assistance with Respiratory Ventilation, Less than 24 Consecutive Hours, Continuous Positive Airway Pressure (ICD-10-PCS; 2022-01-14)
PROC: 5A0935A Assistance with Respiratory Ventilation, Less than 24 Consecutive Hours, High Flow/Velocity Cannula (ICD-10-PCS; 2022-01-16)
DX: A41.9 Sepsis, unspecified organism (principal); G93.41 Metabolic encephalopathy; J96.01 Acute respiratory failure with hypoxia; R65.21 Severe sepsis with septic shock; N39.0 Urinary tract infection, site not specified; N17.9 Acute kidney failure, unspecified; Z79.4 Long term (current) use of insulin; Z79.899 Other long term (current) drug therapy; F32.A Depression, unspecified; K21.9 Gastro-esophageal reflux disease without esophagitis; J44.9 Chronic obstructive pulmonary disease, unspecified; E78.00 Pure hypercholesterolemia, unspecified; I25.10 Atherosclerotic heart disease of native coronary artery without angina pectoris; Z95.5 Presence of coronary angioplasty implant and graft; I45.10 Unspecified right bundle-branch block; N40.0 Benign prostatic hyperplasia without lower urinary tract symptoms; M19.90 Unspecified osteoarthritis, unspecified site; G89.29 Other chronic pain; M54.9 Dorsalgia, unspecified; Z20.822 Contact with and (suspected) exposure to COVID-19; F41.9 Anxiety disorder, unspecified; B96.20 Unspecified Escherichia coli [E. coli] as the cause of diseases classified elsewhere; R41.82 Altered mental status, unspecified; E11.22 Type 2 diabetes mellitus with diabetic chronic kidney disease; I12.9 Hypertensive chronic kidney disease with stage 1 through stage 4 chronic kidney disease, or unspecified chronic kidney disease; E66.9 Obesity, unspecified; F03.90 Unspecified dementia, unspecified severity, without behavioral disturbance, psychotic disturbance, mood disturbance, and anxiety; E11.40 Type 2 diabetes mellitus with diabetic neuropathy, unspecified; N31.9 Neuromuscular dysfunction of bladder, unspecified; N18.2 Chronic kidney disease, stage 2 (mild); Z68.34 Body mass index [BMI] 34.0-34.9, adult
CPT/HCPCS: 36410; 36415; 51702; 71045; 76937; 80048; 80053; 81000; 82805; 82947; 83605; 83735; 84100; 84145; 85007; 85025; 85027; 85610; 85730; 86141; 87040; 87077; 87081; 87088; 87186; 87636; 94640; 94660; 94760

== ENCOUNTER → 2022-02-19 | Outpatient (CLI) | payer MEDICARE, MEDICAID ==
[~2022-02-19] MED LIST changes: +ERTA1VIA4 IJ
[2022-02-19 15:27] LABS: BILIRUBIN,URINE NEGATIVE (NEGATIVE); CLARITY,URINE CLEAR; COLOR,URINE YELLOW; GLUCOSE, URINE (UA) NEGATIVE (NEGATIVE); KETONES,URINE NEGATIVE (NEGATIVE); LEUKOCYTE ESTERASE ,URINE 2+ (NEGATIVE); NITRITE,URINE NEGATIVE (NEGATIVE); PROTEIN,URINE TRACE (NEGATIVE)
[2022-02-19 15:35] LABS: BACTERIA,URINE NEGATIVE /HPF; YEAST,URINE LARGE /HPF
== END ==
LOC: LABNPT 15:22
PROVIDERS: ATTEND Internal Medicine
DX: R41.82 Altered mental status, unspecified (principal)
CPT/HCPCS: 81000; 87077; 87088

== ENCOUNTER 2022-02-26 10:50 | Inpatient (IN) | payer MEDICARE, MEDICAID ==
[~2022-02-26] VITALS: Ht 165 cm; Wt 103.4 kg
[~2022-02-26 10:50] MED LIST changes: +FLUT1AER INH; -FLUT1AER PO
[2022-02-26] MEDS ORDERED: NS IV ONE (11:15)
[2022-02-26] MEDS ORDERED: VANCOMYCIN INJECTION 1,000 MG in NS (IVPB) 250 ML IV ONE (11:15)
[2022-02-26] MEDS ORDERED: MEROPENEM 1,000 MG in NS (IVPB) 100 ML IV ONE (11:15)
[2022-02-26 11:25] LABS: BASOPHILS % (AUTO) 0 % (0-10); EOSINOPHILS # (AUTO) 0.1 10^3/uL (0.0-0.3); EOSINOPHILS % (AUTO) 0 % (0-10); HEMATOCRIT 43 % (40-54); HEMOGLOBIN 13.7 g/dL (13.3-17.7); LYMPHOCYTES # (AUTO) 1.1 10^3/uL (1.0-4.0); LYMPHOCYTES % (AUTO) 7 % (12-44); MEAN CORPUSCULAR HEMOGLOBIN 28 pg (25-34); MEAN CORPUSCULAR HGB CONC 32 g/dL (32-36); MEAN CORPUSCULAR VOLUME 87 fL (80-99); MEAN PLATELET VOLUME 10.5 fL (9.0-12.2); MONOCYTES # (AUTO) 0.7 10^3/uL (0.0-1.0); MONOCYTES % (AUTO) 5 % (0-12); NEUTROPHILS # (AUTO) 14.1 10^3/uL (1.8-7.8); NEUTROPHILS % (AUTO) 88 % (42-75); PLATELET COUNT 243 10^3/uL (130-400); WHITE BLOOD COUNT 16.1 10^3/uL (4.3-11.0)
[2022-02-26 11:30] LABS: ALBUMIN 3.4 GM/DL (3.2-4.5)
[2022-02-26] MEDS ORDERED: MEROPENEM 500 MG in NS (IVPB) 100 ML IV ONE (11:30)
[2022-02-26 11:31] LABS: INR 1.1 (0.8-1.4); POTASSIUM 4.7 MMOL/L (3.6-5.0); PROTHROMBIN TIME PATIENT 14.8 SEC (12.2-14.7)
[2022-02-26 11:33] LABS: TOTAL PROTEIN 7.4 GM/DL (6.4-8.2)
--- NOTE | 2022-02-26 11:33 | ED General ---
General Chief Complaint: Respiratory Problems Stated Complaint: SOA Nursing Triage Note: PT TO [facility] WITH CC OF SOB AND FEVER, WAS SEEN HERE EARLIER THIS WEEK FOR BRONCHITIS, TEMP 39.4 AT TRIAGE, UNKNOWN IF PT HAS HAD ANY MEDICATION FOR FEVER Source of Information: EMS, [facility] Records Exam Limitations: Other (noncommunicative at the time of exam) History of Present Illness Date Seen by Provider: Feb 26, 2022 Time Seen by Provider: 11:05 Initial Comments Patient is a 76 yo M who presents to the ED via EMS from the detention in which he resides with hypoxia, fever, and altered mental status. Per detention staff, patient was admitted to this hospital last month for a UTI. He was discharged with IV antibiotics that were given at the detention. The course of antibiotics were completed and patient seemed to have returned to baseline. He had a chronic escalante catheter. He is usually AAOx2-3 and answers questions. Normally wears O2 via NC at 4-5 LPM. He had a chest xray a few days ago at the detention and was dx c/ "bronchitis" per the RN. He was placed on q4H albuterol nebs. The fever and hypoxia occurred today prompting presentation to the ED. Patient is unable to provide any further history as he is uncommunicative when asked questions. Patient is currently on diflucan but no antibiotics per the detention RN. Patient is a full code and his POA is his . Allergies and Home Medications Allergies Coded Allergies: Penicillins (Unverified Allergy, Mild, HIVES, pt has rec Meropenem in the past, 10/21/21) duloxetine HCl (Verified Allergy, Mild, 11/16/19) Patient Home Medication List Home Medication List Reviewed: Yes Acetaminophen (Tylenol) 325 Mg Tablet, 650 MG PO Q4H PRN for PAIN/TEMP, (Reported) Entered as Reported by: TRISH GRANDE on 07/25/16 0901 Albuterol Sulfate (Albuterol Sulfate) 2.5 Mg/0.5 Ml Vial.neb, 3 ML NEB Q4H PRN for SHORTNESS OF BREATH, (Reported) Entered as Reported by: CHEIKH AMARAL on 02/25/21 0923 Amlodipine Besylate (Amlodipine Besylate) 5 Mg Tablet, 5 MG PO DAILY, (Reported) Entered as Reported by: CHEIKH AMARAL on 10/21/21 1550 Ascorbic Acid (Ascorbic Acid) 500 Mg Tablet, 1,500 MG PO DAILY, (Reported) Entered as Reported by: CHEIKH AMARAL on 04/29/19 1323 Benzonatate (Tessalon Perles) 100 Mg Capsule, 100 MG PO TID PRN for COUGH, (Reported) Entered as Reported by: CHEIKH AMARAL on 02/25/21 09 Bethanechol Chloride (Bethanechol Chloride) 50 Mg Tablet, 50 MG PO QIDACHS, (Reported) Entered as Reported by: CHEIKH AMARAL on 12/30/20 1505 Cholestyramine (with Sugar) (Cholestyramine Packet) 4 Gm Powd.pack, 1 PACKET PO DAILY PRN for DIARRHEA, (Reported) Entered as Reported by: CHEIKH AMARAL on 02/25/21 09 Citalopram Hydrobromide (Citalopram HBr) 20 Mg Tablet, 20 MG PO DAILY, (Reported) Entered as Reported by: WESTON DYSON on 05/31/15 1528 Dextromethorphan HBr/B-Sergio (Cepacol Sorethroat-Cough Jeyson) 5 Mg-7.5 Mg Lozenge, 1 EACH PO EVERY 2 HOURS PRN for COUGH, (Reported) Entered as Reported by: CHEIKH AMARAL on 10/21/21 1550 Docusate Sodium (Docusate Sodium) 100 Mg Capsule, 100 MG PO BID, (Reported) Entered as Reported by: WESTON DYSON on 05/31/15 1535 Ertapenem Sodium (Ertapenem) 1 Gram Vial, 1 GM IJ DAILY Prescribed by: SAMI LAM on 01/18/22 1216 Fluticasone/Vilanterol (Breo Ellipta 100-25 Mcg INH) 1 Each Blst.w.dev, 1 EA PO DAILY, (Reported) Entered as Reported by: CHEIKH AMARAL on 02/25/21 09 Furosemide (Furosemide) 20 Mg Tablet, 20 MG PO DAILY, (Reported) Entered as Reported by: ANGI SKINNER on 06/06/17 0724 Guaifenesin (Mucus Relief) 600 Mg Tab.er.12h, 600 MG PO QID PRN for DRAINAGE, (Reported) Entered as Reported by: CHEIKH AMARAL on 02/25/21922 Insulin Glargine,Hum.rec.anlog (Lantus Solostar) 100 Unit/Ml (3 Ml) Insuln.pen, 30 UNITS SQ HS Prescribed by: SAMI LAM on 01/18/22 1217 Isosorbide Mononitrate (Isosorbide Mononitrate ER) 30 Mg Tab.er.24h, 30 MG PO DAILY, (Reported) Entered as Reported by: CHEIKH AMARLA on 02/25/21922 Loperamide HCl (Imodium A-D) 2 Mg Capsule, 2 MG PO UD PRN for LOOSE STOOLS, (Reported) Entered as Reported by: CHEIKH AMARAL on 02/25/21922 Losartan Potassium (Losartan Potassium) 50 Mg Tablet, 50 MG PO DAILY, (Reported) Entered as Reported by: CHEIKH AMARAL on 12/30/20 1505 Metoclopramide HCl (Metoclopramide HCl) 5 Mg Tablet, 5 MG PO ACHS, (Reported) Entered as Reported by: CHEIKH AMARAL on 01/16/22920 Metoprolol Tartrate (Metoprolol Tartrate) 50 Mg Tablet, 50 MG PO BID, (Reported) Entered as Reported by: JUAN TOLLIVER on 11/17/19 1322 Montelukast Sodium (Montelukast Sodium) 10 Mg Tablet, 10 MG PO DAILY, (Reported) Entered as Reported by: CHEIKH AMARAL on 02/25/21922 Nystatin (Nystatin) 100,000 Unit/Gram Cream..g., 1 APPLIC TP TID, (Reported) Entered as Reported by: CHEIKH AMARAL on 10/21/21 1550 Ondansetron (Ondansetron Odt) 4 Mg Tab.rapdis, 4 MG PO Q4H PRN for NAUSEA/VOMITING-1ST LINE, (Reported) Entered as Reported by: CHEIKH AMARAL on 02/25/21922 Pantoprazole Sodium (Pantoprazole Sodium) 40 Mg Tablet.dr, 40 MG PO DAILY, (Reported) Entered as Reported by: CHEIKH AMARAL on 01/16/22920 Polyethylene Glycol 3350 (Miralax) 17 Gram Powd.pack, 17 GM PO Q48H, (Reported) Entered as Reported by: CHEIKH AMARAL on 10/21/21 1550 Potassium Chloride (Potassium Chloride) 20 Meq Tablet.er, 20 MEQ PO DAILY, (Reported) Entered as Reported by: CHEIKH AMARAL on 04/29/19 1323 Risperidone (Risperidone) 2 Mg Tablet, 2 MG PO , (Reported) Entered as Reported by: WESTON DYSON on 03/22/16 1336 Simvastatin (Zocor) 10 Mg Tablet, 10 MG PO HS, (Reported) Entered as Reported by: LLOYD HOOKER on 10/24/16 1517 Tiotropium [place] (Spiriva Respimat 2.5MCG/ACTUATION) 4 Gm Mist.inhal, 2 PUFF IH DAILY, (Reported) Entered as Reported by: CHEIKH AMARAL on 04/29/19 1323 Trazodone HCl (Trazodone HCl) 150 Mg Tablet, 150 MG PO HS, (Reported) Entered as Reported by: WESTON DYSON on 03/22/16 1336 Review of Systems Review of Systems Constitutional: fever EENTM: no symptoms reported Respiratory: short of breath Cardiovascular: no symptoms reported Gastrointestinal: no symptoms reported Genitourinary: no symptoms reported Skin: no symptoms reported Psychiatric/Neurological: See HPI Past Khwtrmc-Krvogj-Hqjzwq Hx Patient Social History Smoking Status: Unknown if Ever Smoked Alcohol Use?: Unable to obtain Immunizations Up To Date First/Initial COVID19 Vaccinat: 05/14/20 Second COVID19 Vaccination Evangelista: 06/03/20 Third COVID19 Vaccination Date: 02/21/21 Seasonal Allergies Seasonal Allergies: No Past Medical History Surgery/Hospitalization HX: pmh: depression, htn, gerd, edema, DM 2, copd, high cholesterol Surgeries: Yes (CARDIAC CATH 05/2017--PATENT STENT, NON-OCCLUSIIVE CAD--NO INTERVENTION) Cardiac, Coronary Stent, Eye Surgery, Transurethral Resection Respiratory: Yes (HX OF SEPSIS, O2 AT 3 L/NC CONTINUOUSLY; CHRONIC COUGH) Pneumonia, Chronic Bronchitis, Sleep Apnea, COPD Currently Using CPAP: Yes Cardiac: Yes (RBBB, LAFB; CARDIAC CATHS--STENT X 1) Chronic Edema/Swelling, Coronary Artery Disease, High Cholesterol, Hypertension Neurological: Yes Dementia, Neuropathy Reproductive Disorders: No Sexually Transmitted Disease: No HIV/AIDS: No Genitourinary: Yes (INDWELLING ESCALANTE, CHRONIC BILATERAL HYDRONEPHROSIS) Benign Prostatic Hyperpl, Prostate Problems, Neurogenic Bladder, UTI-Chronic Gastrointestinal: Yes Gastroesophageal Reflux, Chronic Constipation Musculoskeletal: Yes Arthritis, Chronic Back Pain Endocrine: Yes (THYROID NODULE) Diabetes, Insulin dep HEENT: Yes (ANGIOEDEMA OF TONGUE) Cataract Hearing Impairment: Hard of Hearing Cancer: No Psychosocial: Yes Sleep Difficulties, Anxiety, Depression Integumentary: No Blood Disorders: No Adverse Reaction/Blood Tranf: No Family Medical History Family history: Hypertension 03 FATHER Stroke 03 MOTHER PSH: -CATARACT SURGERY -TURP 10/31/[address] LAROSE -CARDIAC CATHS--STENT X 1--LAST CATH 05/2017--PATENT STENT, NON-OCCLUSIVE CAD, NO INTERVENTION -CHOLECYSTETCOMY Physical Exam-Suspected Sepsis Physical Exam Vital Signs Vital Signs - First Documented 02/26/22 02/26/22 02/26/22 10:53 11:55 15:07 Temp 39.4 Pulse 104 Resp 26 B/P (MAP) 129/60 (83) Pulse Ox 93 O2 Delivery OxyMask O2 Flow Rate 10.00 FiO2 40 Capillary Refill : Less Than 3 Seconds Blood Pressure Mean: 83 Height, Weight, BMI Height: 5'9.00" Weight: 260lbs. 0.0oz. [id number]; 39.00 BMI Method:Stated General Appearance: Mild Distress HEENT: PERRL/EOMI Neck: Normal Inspection, Non Tender Respiratory: No Accessory Muscle Use, Decreased Breath Sounds, Respiratory Distress (mild; tachypnea) Cardiovascular: No Edema, Normal Peripheral Pulses, Tachycardia Gastrointestinal: Normal Bowel Sounds, Non Tender, Soft Extremity: Normal Capillary Refill, Normal Inspection Neurologic/Psychiatric: No Motor/Sensory Deficits Skin: normal color, warm/dry Lymphatic: No Adenopathy Comments patient unable to answer questions; does nod his head in the affirmative when asked if he feels bad; does not appear to answer when asked if his is short of breath Focused Exam Lactate Level 02/26/22 13:40: Lactic Acid Level 5.65*H 02/26/22 15:46: Lactic Acid Level 3.12*H 02/26/22 17:52: Lactic Acid Level 3.03*H Lactic Acid Level Laboratory Tests Test 02/26/22 15:46 02/26/22 17:52 Lactic Acid Level 3.12 MMOL/L (0.50-2.00) *H 3.03 MMOL/L (0.50-2.00) *H Progress/Results/Core Measures Suspected Sepsis Recent Fever Within 48 Hours: Yes Infection Criteria Present: Suspected New Infection New/Unexplained Altered Menta: Yes Within 3hrs of presentation: Admin fluids, Admin 30ml/kg IBW due to BMI>30, Admin ABX, Blood cultures prior to ABX's, Lactate level SIRS Temperature: Pulse: 104 Respiratory Rate: 26 Laboratory Tests 02/26/22 10:57: White Blood Count 16.1H Blood Pressure 129 /60 Mean: 83 02/26/22 13:40: Lactic Acid Level 5.65*H 02/26/22 15:46: Lactic Acid Level 3.12*H 02/26/22 17:52: Lactic Acid Level 3.03*H Laboratory Tests 02/26/22 10:57: Creatinine 1.75H, INR Comment 1.1, Platelet Count 243, Total Bilirubin 0.7 Results/Orders Lab Results Laboratory Tests Test 02/26/22 10:57 02/26/22 12:20 02/26/22 12:35 02/26/22 12:52 Range/Units White Blood Count 16.1 H 4.3-11.0 10^3/uL Red Blood Count 4.96 4.30-5.52 10^6/uL Hemoglobin 13.7 13.3-17.7 g/dL Hematocrit 43 40-54 % Mean Corpuscular Volume 87 80-99 fL Mean Corpuscular Hemoglobin 28 25-34 pg Mean Corpuscular Hemoglobin Concent 32 32-36 g/dL Red Cell Distribution Width 15.1 H 10.0-14.5 % Platelet Count 243 130-400 10^3/uL Mean Platelet Volume 10.5 9.0-12.2 fL Immature Granulocyte % (Auto) 0 % Neutrophils (%) (Auto) 88 H 42-75 % Lymphocytes (%) (Auto) 7 L 12-44 % Monocytes (%) (Auto) 5 0-12 % Eosinophils (%) (Auto) 0 0-10 % Basophils (%) (Auto) 0 0-10 % Neutrophils # (Auto) 14.1 H 1.8-7.8 10^3/uL Lymphocytes # (Auto) 1.1 1.0-4.0 10^3/uL Monocytes # (Auto) 0.7 0.0-1.0 10^3/uL Eosinophils # (Auto) 0.1 0.0-0.3 10^3/uL Basophils # (Auto) 0.0 0.0-0.1 10^3/uL Immature Granulocyte # (Auto) 0.1 0.0-0.1 10^3/uL Neutrophils % (Manual) 79 % Lymphocytes % (Manual) 14 % Monocytes % (Manual) 4 % Band Neutrophils 3 % Polychromasia SLIGHT Macrocytosis SLIGHT Prothrombin Time 14.8 H 12.2-14.7 SEC INR Comment 1.1 0.8-1.4 Activated Partial Thromboplast Time 27 24-35 SEC Sodium Level 136 135-145 MMOL/L Potassium Level 4.7 3.6-5.0 MMOL/L Chloride Level 99 98-107 MMOL/L Carbon Dioxide Level 22 21-32 MMOL/L Anion Gap 15 H 5-14 MMOL/L Blood Urea Nitrogen 28 H 7-18 MG/DL Creatinine 1.75 H 0.60-1.30 MG/DL Estimat Glomerular Filtration Rate 40 BUN/Creatinine Ratio 16 Glucose Level 173 H 70-105 MG/DL Lactic Acid Level 2.51 *H 0.50-2.00 MMOL/L Calcium Level 9.0 8.5-10.1 MG/DL Corrected Calcium 9.5 8.5-10.1 MG/DL Total Bilirubin 0.7 0.1-1.0 MG/DL Aspartate Amino Transf (AST/SGOT) 13 5-34 U/L Alanine Aminotransferase (ALT/SGPT) 9 0-55 U/L Alkaline Phosphatase 85 40-136 U/L Total Protein 7.4 6.4-8.2 GM/DL Albumin 3.4 3.2-4.5 GM/DL Influenza Type A (RT-PCR) Not Detected Not Detecte Influenza Type B (RT-PCR) Not Detected Not Detecte SARS-CoV-2 RNA (RT-PCR) Not Detected Not Detecte Blood Gas Puncture Site LT RADIAL Blood Gas Patient Temperature 39.4 Arterial Blood pH 7.28 *L 7.37-7.43 Arterial Blood Partial Pressure CO2 62 H 35-45 MMHG Arterial Blood Partial Pressure O2 96 H 79-93 MMHG Arterial Blood HCO3 27 23-27 MMOL/L Arterial Blood Total CO2 28.6 21.0-31.0 MMOL/L Arterial Blood Oxygen Saturation 93 L 94-100 % Arterial Blood Base Excess 1.3 -2.5-2.5 MMOL/L David Test YES-POS Blood Gas Ventilator Setting NO Blood Gas Inspired Oxygen 4 Urine Color YELLOW Urine Clarity SL CLOUDY Urine pH 6.0 5-9 Urine Specific [place] 1.025 H 1.016-1.022 Urine Protein 1+ H NEGATIVE Urine Glucose (UA) NEGATIVE NEGATIVE Urine Ketones NEGATIVE NEGATIVE Urine Nitrite NEGATIVE NEGATIVE Urine Bilirubin NEGATIVE NEGATIVE Urine Urobilinogen 0.2 < = 1.0 MG/DL Urine Leukocyte Esterase 1+ H NEGATIVE Urine RBC (Auto) NEGATIVE NEGATIVE Urine RBC NONE /HPF Urine WBC 5-10 H /HPF Urine Squamous Epithelial Cells 0-2 /HPF Urine Crystals NONE /LPF Urine Bacteria NEGATIVE /HPF Urine Casts NONE /LPF Urine Mucus NEGATIVE /LPF Urine Yeast LARGE H /HPF Urine Culture Indicated YES Test 02/26/22 13:40 02/26/22 15:46 02/26/22 15:55 02/26/22 16:35 Range/Units Lactic Acid Level 5.65 *H 3.12 *H 0.50-2.00 MMOL/L Glucometer 145 H 70-110 MG/DL Blood Gas Puncture Site LT RADIAL Blood Gas Patient Temperature 36.5 Arterial Blood pH 7.34 *L 7.37-7.43 Arterial Blood Partial Pressure CO2 48 H 35-45 MMHG Arterial Blood Partial Pressure O2 31 *L 79-93 MMHG Arterial Blood HCO3 25 23-27 MMOL/L Arterial Blood Total CO2 26.6 21.0-31.0 MMOL/L Arterial Blood Oxygen Saturation 49 L 94-100 % Arterial Blood Base Excess -0.1 -2.5-2.5 MMOL/L David Test YES-POS Blood Gas Ventilator Setting NO Blood Gas Inspired Oxygen 40% Test 02/26/22 17:52 Range/Units Lactic Acid Level 3.03 *H 0.50-2.00 MMOL/L My Orders Orders - LAZ ALMONTE [employer] Cbc With Automated Diff (02/26/22 11:11) Comprehensive Metabolic Panel (02/26/22 11:11) Blood Culture (02/26/22 11:11) Sputum Culture (02/26/22 11:11) Urinalysis (02/26/22 11:11) Urine Culture (02/26/22 11:11) Protime With Inr (02/26/22 11:11) Partial Thromboplastin Time (02/26/22 11:11) Chest 1 View, Ap/Pa Only (02/26/22 11:11) Ed Iv/Invasive Line Start (02/26/22 11:11) Ed Iv/Invasive Line Start (02/26/22 11:11) O2 (02/26/22 11:11) Lactic Acid Analyzer (02/26/22 11:11) Ns Iv 1000 Ml (Sodium Chloride 0.9%) (02/26/22 11:15) Vancomycin Injection (Vancomycin Injecti (02/26/22 11:15) Meropenem (Merrem 1000 Mg) (02/26/22 11:15) Ed Iv/Invasive Line Start (02/26/22 11:11) Ed Iv/Invasive Line Start (02/26/22 11:11) Vital Signs Adult Sepsis Patie Q15M (02/26/22 11:11) O2 (02/26/22 11:11) Remove Rings In Anticipation O (02/26/22 11:11) Meropenem (Merrem 500 Mg) (02/26/22 11:30) Manual Differential (02/26/22 10:57) Acetaminophen Suppository (Tylenol Suppo (02/26/22 11:45) Covid 19 Inhouse Test (02/26/22 11:35) Influenza A And B By Pcr (02/26/22 11:35) Isolation Central Supply Req (02/26/22 11:35) Arterial Blood Gas (02/26/22 12:34) Bipap (Bilevel) Set Up (02/26/22 12:54) Albuterol/Ipra Inhalation Soln (Duoneb I (02/26/22 13:15) Svn Small Volume Nebulizer (02/26/22 13:05) Ed Admission (Communication) (02/26/22 13:30) Code/Resuscitation (02/26/22 13:41) Medications Given in ED Current Medications Medications Dose Ordered Sig/Areli Route Start Time Stop Time Status Last Admin Dose Admin Acetaminophen [address] 02/26/22 11:45 02/26/22 11:46 DC 02/26/22 11:43 650 MG Albuterol/ Ipratropium 3 ml ONCE ONCE INH 02/26/22 13:15 02/26/22 13:16 DC 02/26/22 13:38 3 ML Meropenem 500 mg/ Sodium Chloride 100 ml @ 200 mls/hr ONCE ONCE IV 02/26/22 11:30 02/26/22 11:59 DC 02/26/22 11:33 200 MLS/HR Sodium Chloride 1,842 ml @ 1,842 mls/hr ONCE ONCE IV 02/26/22 11:15 02/26/22 12:14 DC 02/26/22 11:51 1,842 MLS/HR Vancomycin HCl 1000 mg/Sodium Chloride 250 ml @ 250 mls/hr ONCE ONCE IV 02/26/22 11:15 02/26/22 12:14 DC 02/26/22 12:01 250 MLS/HR Vital Signs/I&O 02/26/22 02/26/22 02/26/22 02/26/22 10:53 11:03 11:43 11:55 Temp 39.4 39.4 Pulse 104 Resp 26 B/P (MAP) 129/60 (83) Pulse Ox 93 97 O2 Delivery OxyMask OxyMask OxyMask O2 Flow Rate 10.00 02/26/22 02/26/22 02/26/22 02/26/22 13:39 15:07 15:10 15:14 Temp 39.7 37.9 Pulse 129 109 106 Resp 35 28 35 B/P (MAP) 103/88 109/61 (77) Pulse Ox 99 93 99 93 O2 Delivery NIV Bilevel NIV Bilevel NIV Bilevel O2 Flow Rate 50.00 40.00 FiO2 40 02/26/22 02/26/22 02/26/22 02/26/22 15:15 15:29 15:45 16:00 Temp 37.1 Pulse 111 101 97 Resp 31 21 B/P (MAP) 114/70 (85) Pulse Ox 94 91 O2 Delivery NIV Bilevel O2 Flow Rate 40.00 40.00 02/26/22 02/26/22 02/26/22 02/26/22 16:01 17:00 17:51 18:00 Temp 37.1 37.6 Pulse 87 106 Resp 23 26 B/P (MAP) 104/58 (73) 107/68 (81) Pulse Ox 94 90 O2 Delivery NIV Bilevel NIV Bilevel O2 Flow Rate 40.00 40.00 02/26/22 02/26/22 02/26/22 18:03 18:40 19:26 Temp 37.6 37.1 Pulse 87 99 Resp 24 Pulse Ox 94 94 O2 Flow Rate 60.00 FiO2 40 Capillary Refill : Less Than 3 Seconds Blood Pressure Mean: 83 Progress Note : Progress Note Patient is noted to have mild to moderate respiratory distress upon arrival. Patient was given a duoneb by EMS en route that reportedly helped the symptoms. Patient was able to be weaned from 10L of O2 via simple mask to 5L with no resultant desaturation. Peripheral pulses are strong. Urine noted in the escalante tubing and drainage bag that is clear and yellow. Patient noted to be tachypneic and tachycardic on arrival. No hypotension noted. Pt is awake. Will obtain septic workup. Patient will be given Vanc and Merrem given h/o MDR UTI. Laboratory evaluation notable for leukocytosis and elevated lactic acid. Chest xray notable for bilateral opacities that are unchanged from prior. UA without definitive findings c/w UTI. Yeast noted. ABG notable for respiratory acidosis and hypercapnia. Patient was placed on BiPap and a duoneb was ordered. Will admit for further evaluation and treatment. Hospitalist kindly agreed to admit. Patient's was updated on POC. Departure Communication (Admissions) Time/Spoke to Admitting Phy: 13:15 Impression Primary Impression: Sepsis Qualified Codes: A41.9 - Sepsis, unspecified organism; R65.20 - Severe sepsis without septic shock; J96.01 - Acute respiratory failure with hypoxia Additional Impression: Acute respiratory failure with hypoxia and hypercapnia Disposition: ADMITTED INPATIENT Condition: Critical Admissions Decision to Admit Reason: Admit from ER (General) Decision to Admit/Date: Feb 26, 2022 Time/Decision to Admit Time: 13:15 Departure-Patient Inst. Referrals: VERENA LANCE MD (PCP/Family) Primary Care Physician LAZ ALMONTE APRN Feb 26, 2022 11:33
[2022-02-26 11:35] LABS: BILIRUBIN,TOTAL 0.7 MG/DL (0.1-1.0)
[2022-02-26 11:37] LABS: CREATININE SERUM 1.75 MG/DL (0.60-1.30)
[2022-02-26] MEDS ORDERED: ACETAMINOPHEN 650 MG SUPP (TYLENOL) PR ONE (11:45)
[2022-02-26 11:48] LABS: BAND NEUTROPHILS 3 %; LYMPHOCYTES % (MANUAL) 14 %; MONOCYTES % (MANUAL) 4 %; NEUTROPHILS % (MANUAL) 79 %
[2022-02-26 11:49] LABS: POLYCHROMASIA SLIGHT
--- NOTE | 2022-02-26 11:56 | Diagnostic Imaging Report ---
CHEST 1 VIEW, AP/PA ONLY Indication: Sepsis Comparison: 01/14/2022 Findings: Low lung volumes. Bibasilar heterogeneous pulmonary opacities persist. No pleural effusion or pneumothorax. Stable cardiomegaly. Impression: 1. Bibasilar pulmonary opacities could be due to edema, multifocal infection and/or atelectasis. Dictated by: Dictated on workstation # [id number]
[2022-02-26 12:43] LABS: ABG BASE EXCESS 1.3 MMOL/L (-2.5-2.5); ABG OXYGEN SATURATION 93 % (94-100); ABG PCO2 62 MMHG (35-45); ABG PO2 96 MMHG (79-93); ABG TCO2 28.6 MMOL/L (21.0-31.0)
[2022-02-26 12:48] LABS: ABG PH 7.28 (7.37-7.43); ALLENS TEST YES-POS; INSPIRED O2 4; PATIENT TEMP 39.4; VENTILATOR NO
[2022-02-26 12:58] LABS: BILIRUBIN,URINE NEGATIVE (NEGATIVE); CLARITY,URINE SL CLOUDY; COLOR,URINE YELLOW; GLUCOSE, URINE (UA) NEGATIVE (NEGATIVE); KETONES,URINE NEGATIVE (NEGATIVE); LEUKOCYTE ESTERASE ,URINE 1+ (NEGATIVE); NITRITE,URINE NEGATIVE (NEGATIVE); PROTEIN,URINE 1+ (NEGATIVE)
[2022-02-26 13:11] LABS: BACTERIA,URINE NEGATIVE /HPF; SQUAMOUS EPITHELIAL CELL,UR 0-2 /HPF; YEAST,URINE LARGE /HPF
[2022-02-26] MEDS ORDERED: RT-ALBUTEROL/IPRATROPIUM 3 ML (DUONEB) VIAL INH ONE (13:15)
[2022-02-26 13:39] VITALS: BP 137/78
[2022-02-26] MEDS ORDERED: ACETAMINOPHEN 325 MG TABLET PO PRN (15:30)
[2022-02-26] MEDS ORDERED: VANCOMYCIN INJECTION 0.1 MG in NS (IVPB) 250 ML IV SCH (15:30)
[2022-02-26] MEDS ORDERED: ONDANSETRON 4 MG/2 ML (SDV) Z0FRAN IV PRN (15:30)
[2022-02-26] MEDS ORDERED: VANCOMYCIN 1 GM/NS 250 ML IVPB IV ONE ×2 (15:30)
[2022-02-26] MEDS: NS IV 1000 ML 1,000 ML IV SCH ×2 (15:47→23:44)
[2022-02-26 16:44] LABS: ABG BASE EXCESS -0.1 MMOL/L (-2.5-2.5); ABG OXYGEN SATURATION 49 % (94-100); ABG PCO2 48 MMHG (35-45); ABG TCO2 26.6 MMOL/L (21.0-31.0)
[2022-02-26 16:46] LABS: ABG PH 7.34 (7.37-7.43)
[2022-02-26 16:47] LABS: ABG PO2 31 MMHG (79-93); ALLENS TEST YES-POS; INSPIRED O2 40%; PATIENT TEMP 36.5; VENTILATOR NO
--- NOTE | 2022-02-26 16:47 | Tele-ICU Consult ---
History of Present Illness History of Present Illness Date Seen by Provider: Feb 26, 2022 Time Seen by Provider: 16:47 Date of Admission . (Tele-ICU Physician , consultation - as per requaest of PCP Service provided via interactive audio and video telecommunications E-CARE system to a patient admitted to ICU bed in [facility]. Available chart/ vitals / labs / Images reviewed H&P is from ER notes Patient's information available about PMH, Shx, Fhx allergy reviewed inEMR. ROS as per chart and RN report Now in ICU, hemodynamically stable Video assessment done using teleICU camera, rest of exam as per RN Discussed with RN. Consultants: Hospital course: A/P (01/14) 76M Admitted for AMS, sepsis UTI/ARF, hypoxia. COPD/BOBO hx. Also chronic UTI's with chronic brady and chronic bilateral hydronephrosis-- D?C [facility] readmitted (02/26) 76yM admitted from the ED with fever and shortness of breath. Chest x-ray shows edema, multifocal infection, atelectasis, UTI A/P Acute resp failure ( hypoxix , hypercapneic - placed on BIPAPA 04/11 rr 22 tv 500 , 40 % - repeat abg FEVER - ? chronic UTI ,, ? PNA other sourse Sepsis. elevated lactate -BP normalized with hydration - follow lactic acid UTI, recurrent -brady ( chronic ) - ? replaced in ER -History of ESBL E coli -Multiple prior urine cultures with ESBL E coli- started on MErrem based on previous sensitivity - and VANCO BOBO -CPAP at home ? - to cont nocturnal Lethargy / hypercapnea , ? TME ( with h/o dementia) - followabg LILIANA on CKD - hydration DM II - ISS h/o Esophageal candidiasis / Esophageal ulcer by EGD 10/25/21 - tx-ed Lines : Left subclavian 01/15 , (Central Line Necessity Reviewed) Brady: + OG: Nutrition: po when AAO Analgesia: Anxiety/ delirium VTE Prophylaxis: hep sq Stress Ulcer Prophylaxis: Plans in collaboration with bedside consultants and IM MDs. Discussed with RN to reach out if any questions or concerns A total of 32 minutes of critical care time was devoted to this patient today, required to treat and/or prevent further deterioration of critical care condition ( as above ) . I am remotely monitoring this patient from another [place]. I am unable to do the bedside exam, and history/physical and pertinent information is taken from other notes in the computer and bedside staff. Allergies and Home Medications Allergies Coded Allergies: Penicillins (Unverified Allergy, Mild, HIVES, pt has rec Meropenem in the past, 10/21/21) duloxetine HCl (Verified Allergy, Mild, 11/16/19) Home Medications Acetaminophen 325 Mg Tablet, 650 MG PO Q4H PRN for PAIN/TEMP, (Reported) TAKES 2 (325MG) TABS Albuterol Sulfate 2.5 Mg/0.5 Ml Vial.neb, 3 ML NEB Q4H PRN for SHORTNESS OF BREATH, (Reported) Amlodipine Besylate 5 Mg Tablet, 5 MG PO DAILY, (Reported) NOTIFY CHARGE NURSE IF SBP>190 OR >100 Ascorbic Acid 500 Mg Tablet, 1,500 MG PO DAILY, (Reported) Benzonatate 100 Mg Capsule, 100 MG PO TID PRN for COUGH, (Reported) Bethanechol Chloride 50 Mg Tablet, 50 MG PO QIDACHS, (Reported) Cholestyramine (with Sugar) 4 Gm Powd.pack, 1 PACKET PO DAILY PRN for DIARRHEA, (Reported) Citalopram Hydrobromide 20 Mg Tablet, 20 MG PO DAILY, (Reported) Dextromethorphan HBr/B-Sergio 5 Mg-7.5 Mg Lozenge, 1 EACH PO EVERY 2 HOURS PRN for COUGH, (Reported) Docusate Sodium 100 Mg Capsule, 100 MG PO BID, (Reported) Ertapenem Sodium 1 Gram Vial, 1 GM IJ DAILY Prescribed by: SAMI LAM on 01/18/22 1216 Fluticasone/Vilanterol 1 Each Blst.w.dev, 1 EA PO DAILY, (Reported) Furosemide 20 Mg Tablet, 20 MG PO DAILY, (Reported) Guaifenesin 600 Mg Tab.er.12h, 600 MG PO QID PRN for DRAINAGE, (Reported) Insulin Glargine,Hum.rec.anlog 100 Unit/Ml (3 Ml) Insuln.pen, 30 UNITS SQ HS Prescribed by: SAMI LAM on 01/18/22 1217 Isosorbide Mononitrate 30 Mg Tab.er.24h, 30 MG PO DAILY, (Reported) Loperamide HCl 2 Mg Capsule, 2 MG PO UD PRN for LOOSE STOOLS, (Reported) TAKE AFTER EACH LOOSE STOOL Losartan Potassium 50 Mg Tablet, 50 MG PO DAILY, (Reported) Metoclopramide HCl 5 Mg Tablet, 5 MG PO ACHS, (Reported) Metoprolol Tartrate 50 Mg Tablet, 50 MG PO BID, (Reported) Montelukast Sodium 10 Mg Tablet, 10 MG PO DAILY, (Reported) Nystatin 100,000 Unit/Gram Cream..g., 1 APPLIC TP TID, (Reported) APPLY TO FOLDS Ondansetron 4 Mg Tab.rapdis, 4 MG PO Q4H PRN for NAUSEA/VOMITING-1ST LINE, (Reported) Pantoprazole Sodium 40 Mg Tablet.dr, 40 MG PO DAILY, (Reported) Polyethylene Glycol 3350 17 Gram Powd.pack, 17 GM PO Q48H, (Reported) Potassium Chloride 20 Meq Tablet.er, 20 MEQ PO DAILY, (Reported) Risperidone 2 Mg Tablet, 2 MG PO 0800,2000, (Reported) Simvastatin 10 Mg Tablet, 10 MG PO HS, (Reported) Tiotropium [place] 4 Gm Mist.inhal, 2 PUFF IH DAILY, (Reported) Trazodone HCl 150 Mg Tablet, 150 MG PO HS, (Reported) Past Medical/Social/Family Hx Patient Social History Smoking Status: Unknown if Ever Smoked Alcohol Use?: Unable to obtain Pt stated abuse/neglect: Unable to obtain Immunizations Up To Date Influenza Vaccine Up-to-Date: No; Not Current First/Initial COVID19 Vaccinat: 05/14/20 Second COVID19 Vaccination Evangelista: 06/03/20 Tetanus Booster (TDap): Unknown TB Skin Test: None Date of Pneumonia Vaccine: Mar 07, 2010 Current Status Advance Directives: No Communicates: Verbally Primary Language: Slovenian Preferred Spoken Language: Slovenian Is interpretation needed?: Unable to obtain Implanted or Applied Medical D: None Family Medical History Family Hx: PSH: -CATARACT SURGERY -TURP 10/31/[address] LAROSE -CARDIAC CATHS--STENT X 1--LAST CATH 05/2017--PATENT STENT, NON-OCCLUSIVE CAD, NO INTERVENTION -CHOLECYSTETCOMY Review of Systems Constitutional: see HPI Focused Exam Sepsis Stage: Severe Sepsis Lactate Level 02/26/22 10:57: Lactic Acid Level 2.51*H 02/26/22 13:40: Lactic Acid Level 5.65*H 02/26/22 15:46: Lactic Acid Level 3.12*H Height, Weight, BMI Height: 5'9.00" Weight: 260lbs. 0.0oz. 117.743785jj; 39.44 BMI Method:Stated Lactic Acid Level Laboratory Tests Test 02/26/22 13:40 02/26/22 15:46 Lactic Acid Level 5.65 MMOL/L (0.50-2.00) *H 3.12 MMOL/L (0.50-2.00) *H Within 3hrs of presentation: Admin fluids, Admin 30ml/kg IBW due to BMI>30, Blood cultures prior to ABX's, Lactate level Exam Exam Patient acknowledged, consented, and participated in this virtual visit which was conducted using real time audio/video Vital Signs Date Time Temp Pulse Resp B/P (MAP) Pulse Ox O2 Delivery O2 Flow Rate FiO2 02/26/22 16:01 37.1 02/26/22 15:45 37.1 02/26/22 15:14 37.9 106 35 109/61 (77) 93 NIV Bilevel 40.00 02/26/22 15:10 39.7 109 28 103/88 99 NIV Bilevel 02/26/22 13:39 129 35 99 50.00 02/26/22 11:55 97 OxyMask 10.00 02/26/22 11:43 39.4 02/26/22 11:03 OxyMask 02/26/22 10:53 39.4 104 26 129/60 (83) 93 OxyMask Height & Weight Height: 5'9.00" Weight: 260lbs. 0.0oz. 117.268373ma; 39.44 BMI Method:Stated General Appearance: No Apparent Distress, Other Capillary Refill: Less Than 3 Seconds Results Lab Laboratory Tests 02/26/22 10:57 Assessment/Plan Assessment/Plan 1 LILLIAM KHAN MD Feb 26, 2022 16:47
[2022-02-26 18:03] VITALS: BP 104/58
[2022-02-26] MEDS ORDERED: RT-ALBUTEROL/IPRATROPIUM 3 ML (DUONEB) VIAL INH PRN (18:30)
[2022-02-26] MEDS: RT-ALBUTEROL/IPRATROPIUM 3 ML (DUONEB) VIAL INH SCH ×2 (18:40→22:22)
[2022-02-26] MEDS: MEROPENEM 500 MG in NS (IVPB) 100 ML IV SCH (19:47)
[2022-02-27] MEDS: RT-ALBUTEROL/IPRATROPIUM 3 ML (DUONEB) VIAL INH SCH ×5 (02:10→22:30)
[2022-02-27] MEDS: MEROPENEM 500 MG in NS (IVPB) 100 ML IV SCH ×3 (04:54→20:01)
[2022-02-27 05:05] LABS: BASOPHILS % (AUTO) 0 % (0-10); EOSINOPHILS % (AUTO) 0 % (0-10); HEMATOCRIT 36 % (40-54); LYMPHOCYTES # (AUTO) 0.9 10^3/uL (1.0-4.0); LYMPHOCYTES % (AUTO) 6 % (12-44); MEAN CORPUSCULAR HEMOGLOBIN 27 pg (25-34); MEAN CORPUSCULAR HGB CONC 31 g/dL (32-36); MEAN CORPUSCULAR VOLUME 89 fL (80-99); MEAN PLATELET VOLUME 10.5 fL (9.0-12.2); MONOCYTES # (AUTO) 0.5 10^3/uL (0.0-1.0); MONOCYTES % (AUTO) 4 % (0-12); NEUTROPHILS # (AUTO) 12.4 10^3/uL (1.8-7.8); NEUTROPHILS % (AUTO) 90 % (42-75); PLATELET COUNT 167 10^3/uL (130-400); WHITE BLOOD COUNT 13.8 10^3/uL (4.3-11.0)
[2022-02-27 05:21] LABS: ALBUMIN 2.6 GM/DL (3.2-4.5); POTASSIUM 4.5 MMOL/L (3.6-5.0)
[2022-02-27 05:22] LABS: CALCIUM 7.8 MG/DL (8.5-10.1)
[2022-02-27 05:23] LABS: TOTAL PROTEIN 5.5 GM/DL (6.4-8.2)
[2022-02-27 05:25] LABS: BILIRUBIN,TOTAL 0.6 MG/DL (0.1-1.0)
[2022-02-27 05:27] LABS: CREATININE SERUM 1.91 MG/DL (0.60-1.30)
[2022-02-27 05:30] LABS: MAGNESIUM 1.7 MG/DL (1.6-2.4)
[2022-02-27 05:58] LABS: ABG BASE EXCESS -0.9 MMOL/L (-2.5-2.5); ABG OXYGEN SATURATION 92 % (94-100); ABG PCO2 45 MMHG (35-45); ABG PH 7.35 (7.37-7.43); ABG PO2 67 MMHG (79-93); ABG TCO2 25.4 MMOL/L (21.0-31.0)
[2022-02-27 05:59] LABS: ALLENS TEST YES-POS; INSPIRED O2 50%; PATIENT TEMP 36.5; VENTILATOR NO
[2022-02-27] MEDS: NS IV 1000 ML 1,000 ML IV SCH ×2 (07:53→15:13)
--- NOTE | 2022-02-27 08:40 | Tele-ICU Progress Note ---
Subjective Date Seen by a Provider: Feb 27, 2022 Time Seen by a Provider: 08:39 Subjective/Events-last exam (Tele-ICU Physician , Progress Note ) Service provided via interactive audio and video telecommunications E-CARE system to a patient admitted to ICU bed in [facility]. Available chart/ vitals / labs / Images reviewed Video assessment done using teleICU camera, rest of exam as per RN Discussed with RN Events overnight : febrile , but better hemodynamically stable Respiratory - I/O = pos 3 L Drips: ns 125 Pressors- no Consultants: Hospital course: A/P (01/14) 76M Admitted for AMS, sepsis UTI/ARF, hypoxia. COPD/BOBO hx. Also chronic UTI's with chronic brady and chronic bilateral hydronephrosis-- D?C [facility] readmitted (02/26) 76yM admitted from the ED with fever and shortness of breath. Chest x-ray shows edema, multifocal infection, atelectasis, UTI A/P Acute resp failure ( hypoxix , hypercapneic - placed on BIPAP 04/11 rr 22 tv 500 , 40 % - abg normalized , will try to take off bipap FEVER - ? chronic UTI ,, ? PNA other sourse Sepsis. elevated lactate -BP normalized with hydration - follow lactic acid UTI, recurrent -brady ( chronic ) - ? replaced in ER -History of ESBL E coli -Multiple prior urine cultures with ESBL E coli- started on MErrem based on previous sensitivity - and VANCO BOBO -CPAP at home ? - to cont nocturnal Lethargy / hypercapnea , ? TME ( with h/o dementia) - follow LILIANA on CKD - hydration provided , > 3L positive , Ct slightly higher DM II - ISS h/o Esophageal candidiasis / Esophageal ulcer by EGD 10/25/21 - tx-ed Lines : periph lines , (Central Line Necessity Reviewed) Brady: + OG: Nutrition: po when AAO Analgesia: Anxiety/ delirium VTE Prophylaxis: hep sq Stress Ulcer Prophylaxis: Plans in collaboration with bedside consultants and IM MDs. Discussed with RN to reach out if any questions or concerns A total of 32 minutes of critical care time was devoted to this patient today, required to treat and/or prevent further deterioration of critical care condition ( as above ) . I am remotely monitoring this patient from another state. I am unable to do the bedside exam, and history/physical and pertinent information is taken from other notes in the computer and bedside staff. Sepsis Event Evaluation Height, Weight, BMI Height: 5'9.00" Weight: 260lbs. 0.0oz. 117.045823wr; 39.44 BMI Method:Stated Focused Exam Lactate Level 02/26/22 17:52: Lactic Acid Level 3.03*H 02/26/22 20:05: Lactic Acid Level 2.15*H 02/26/22 22:05: Lactic Acid Level 1.84 Exam Exam Patient acknowledged, consented, and participated in this virtual visit which was conducted using real time audio/video Vital Signs Date Time Temp Pulse Resp B/P (MAP) Pulse Ox O2 Delivery O2 Flow Rate FiO2 02/27/22 08:00 77 19 136/69 (91) 97 NIV Bilevel 40.00 02/27/22 07:56 36.3 02/27/22 07:17 73 02/27/22 07:00 71 17 130/66 (87) 97 NIV Bilevel 40.00 02/27/22 06:42 69 22 95 40.00 02/27/22 06:00 66 20 118/62 (80) 96 NIV Bilevel 40.00 02/27/22 05:00 70 21 119/65 (83) 91 NIV Bilevel 40.00 02/27/22 04:00 96 NIV Bilevel 50 02/27/22 04:00 76 25 120/62 (81) 95 NIV Bilevel 50.00 02/27/22 03:00 76 20 114/59 (77) 94 NIV Bilevel 50.00 02/27/22 02:10 70 21 97 40.00 02/27/22 02:00 74 19 113/65 (81) 97 NIV Bilevel 50.00 02/27/22 01:00 74 20 108/56 (73) 97 NIV Bilevel 50.00 02/27/22 01:00 74 02/27/22 00:00 37.0 02/27/22 00:00 79 20 102/57 (72) 97 NIV Bilevel 50.00 02/26/22 23:59 97 NIV Bilevel 50 02/26/22 23:30 NIV Bilevel 50.00 02/26/22 23:00 86 105/59 (74) 97 NIV Bilevel 60.00 02/26/22 22:31 98 02/26/22 22:23 74 25 98 50.00 02/26/22 22:00 75 25 94/67 (76) 97 NIV Bilevel 60.00 02/26/22 21:00 86 15 123/55 (77) 97 NIV Bilevel 60.00 02/26/22 20:00 92 28 122/70 (87) 96 NIV Bilevel 60.00 02/26/22 20:00 94 NIV Bilevel 60 02/26/22 19:26 37.1 02/26/22 19:00 98 26 137/79 (98) 92 NIV Bilevel 60.00 02/26/22 19:00 NIV Bilevel 60.00 02/26/22 18:40 99 24 94 60.00 02/26/22 18:03 37.6 87 94 40 02/26/22 18:00 106 26 107/68 (81) 90 NIV Bilevel 40.00 02/26/22 17:51 37.6 02/26/22 17:00 87 23 104/58 (73) 94 NIV Bilevel 40.00 02/26/22 16:01 37.1 02/26/22 16:00 97 21 114/70 (85) 91 NIV Bilevel 40.00 02/26/22 15:45 37.1 02/26/22 15:29 101 02/26/22 15:15 111 31 94 40.00 02/26/22 15:14 37.9 106 35 109/61 (77) 93 NIV Bilevel 40.00 02/26/22 15:10 39.7 109 28 103/88 99 NIV Bilevel 02/26/22 15:07 93 NIV Bilevel 40 02/26/22 13:39 129 35 99 50.00 02/26/22 11:55 97 OxyMask 10.00 02/26/22 11:43 39.4 02/26/22 11:03 OxyMask 02/26/22 10:53 39.4 104 26 129/60 (83) 93 OxyMask I & O 02/27/22 07:00 Intake Total 3542 ml Output Total 1125 ml Balance 2417 ml Height & Weight Height: 5'9.00" Weight: 260lbs. 0.0oz. 117.850532ne; 39.44 BMI Method:Stated General Appearance: Mild Distress HEENT: PERRL/EOMI Neck: Normal Inspection, Non Tender Respiratory: No Accessory Muscle Use, Decreased Breath Sounds, Respiratory Distress (mild; tachypnea) Cardiovascular: No Edema, Normal Peripheral Pulses, Tachycardia Capillary Refill: Less Than 3 Seconds Extremity: Normal Capillary Refill, Normal Inspection Neurologic/Psychiatric: No Motor/Sensory Deficits Lymphatic: No Adenopathy Results Lab Laboratory Tests 02/26/22 10:57 02/27/22 04:50 Assessment/Plan Assessment/Plan 1 LILLIAM KHAN MD Feb 27, 2022 08:40
--- NOTE | 2022-02-27 08:44 | Physical Therapy Evaluation ---
PT Evaluation-General Medical Diagnosis Admission Date Feb 26, 2022 at 13:32 Medical Diagnosis: resp. failure, hypoxia, AMS Onset Date: Feb 26, 2022 Therapy Diagnosis Therapy Diagnosis: impaired mobility Height/Weight Height (Feet): 5 Height (Inches): 9.00 Weight (Pounds): 260 Weight (Ounces): 0.0 Precautions Precautions/Isolations: Aspiration, Fall Prevention, Standard Precautions, Pressure Ulcer Referral Physician: Harpreet Reason for Referral: Evaluation/Treatment Medical History Pertinent Medical History: Arthritis, CAD, COPD, DM, Dementia, HTN, Neuropathy Additional Medical History Past Medical History Surgery/Hospitalization HX: pmh: depression, htn, gerd, edema, DM 2, copd, high cholesterol Surgeries: Yes (CARDIAC CATH 05/2017--PATENT STENT, NON-OCCLUSIIVE CAD--NO INTERVENTION) Cardiac, Coronary Stent, Eye Surgery, Transurethral Resection Respiratory: Yes (HX OF SEPSIS, O2 AT 3 L/NC CONTINUOUSLY; CHRONIC COUGH) Pneumonia, Chronic Bronchitis, Sleep Apnea, COPD Currently Using CPAP: Yes Cardiac: Yes (RBBB, LAFB; CARDIAC CATHS--STENT X 1) Chronic Edema/Swelling, Coronary Artery Disease, High Cholesterol, Hypertension Neurological: Yes Dementia, Neuropathy Reproductive Disorders: No Sexually Transmitted Disease: No HIV/AIDS: No Genitourinary: Yes (INDWELLING ESCALANTE, CHRONIC BILATERAL HYDRONEPHROSIS) Benign Prostatic Hyperpl, Prostate Problems, Neurogenic Bladder, UTI-Chronic Gastrointestinal: Yes Gastroesophageal Reflux, Chronic Constipation Musculoskeletal: Yes Arthritis, Chronic Back Pain Endocrine: Yes (THYROID NODULE) Diabetes, Insulin dep HEENT: Yes (ANGIOEDEMA OF TONGUE) Cataract Hearing Impairment: Hard of Hearing Cancer: No Psychosocial: Yes Sleep Difficulties, Anxiety, Depression Integumentary: No Blood Disorders: No Adverse Reaction/Blood Tranf: No Reviewed History: Yes Social History Home: Residential Prior Prior Level of Function SCALE: Activities may be completed with or without assistive devices. 5-Zkzgviwynk-fpejcbh completes the activity by him/herself with no assistance from a helper. 5-Set-up or Clean-up Assistance-helper sets up or cleans up; patient completes activity. [place] assists only prior to or following the activity. 4-Supervision or Touching Assistance-helper provides verbal cues and/or touching/steadying and/or contact guard assistance as patient completes activity. Assistance may be provided throughout the activity or intermittently. 3-Partial/Moderate Assistance-helper does LESS THAN HALF the effort. [place] lifts, holds or supports trunk or limbs, but provides less than half the effort. 2-Substantial/Maximal Assistance-helper does MORE THAN HALF the effort. [place] lifts or holds trunk or limbs and provides more than half the effort. 6-Qgiflkaku-zxpski does ALL the effort. Patient does none of the effort to co mplete the activity. Or, the assistance of 2 or more helpers is required for the patient to complete the activity. If activity was not attempted, code reason: 7-Patient Refused. 9-Not Applicable-not attempted and the patient did not perform the activity before the current illness, exacerbation or injury. 10-Not Attempted due to Environmental Limitations-(lack of equipment, weather restraints, etc.). 88-Not Attempted due to Medical Conditions or Safety Concerns. unknown, patient cannot communicate at this time PT Evaluation-Current Subjective Patient in bed pre tx, he opened his eyes a couple of times but will not communicate. Pt/Family Goals none stated Objective Patient Orientation: Unable to Assess, Non-Verbal/Aphasic, Listless Attachments: SCD's (and heel protectors), Oxygen (bipap), [place] Catheter, IV ROM/Strength ROM Lower Extremities WNL but seems to have limited knee extension on the left side Strength Lower Extremities unable to follow directions but can move his extremities, seems to have at least 3/5 grossly Treatment AAROM to BLE, patient was able to participate with a few reps of BLE and that is about it. Assessment/Needs Patient in bed post tx with nurse call, phone, tray, bed alarm on. Patient has impaired mobility, decreased alertness. Will keep patient on for a couple of days to see if he improves, if not then DC Rehab Potential: Poor PT Care Home Goals Care Home Goals PT Care Home Goals Time Frame: Mar 06, 2022 Roll Left & Right (QC): 3 Sit to Lying (QC): 3 Lying-Sitting on Side/Bed(QC): 3 Sit to Stand (QC): 3 Chair/Nar-le-Qpxjq Xfer(QC): 3 PT Plan Problem List Problem List: Activity Tolerance, Functional Strength, Safety, Balance, Gait, Transfer, Bed Mobility, ROM Treatment/Plan Treatment Plan: Continue Plan of Care Treatment Plan: Bed Mobility, Education, Functional Activity Mehdi, Functional Strength, Gait, Safety, Therapeutic Exercise, Transfers Treatment Duration: Mar 06, 2022 Frequency: 5 times per week Estimated Hrs Per Day: .25 hour per day Patient and/or Family Agrees t: Yes Safety Risks/Education Patient Education: Correct Positioning, Safety Issues Teaching Recipient: Patient Teaching Methods: Demonstration, Discussion Response to Teaching: Reinforcement Needed Discharge Recommendations Plan Patient will perform bed mobility and transfer training, balance and endurance training, functional strengthening, gait training, and education, to improve functional mobility and independence at home. Therapy Discharge Recommendati: Other, See Comments (NH) Time/GCodes Time In: 810 Time Out: 819 Total Billed Treatment Time: 9 Total Billed Treatment 1 visit PATSY MAURICE PT Feb 27, 2022 08:44
[2022-02-27] MEDS: PANTOPRAZOLE 40 MG (PROTONIX) VIAL IV SCH (10:09)
--- NOTE | 2022-02-27 10:58 | Occupational Therapy Eval ---
OT Evaluation-General/PLF Medical Diagnosis Admission Date Feb 26, 2022 at 13:32 Medical Diagnosis: resp. failure, hypoxia, AMS Onset Date: Feb 26, 2022 Therapy Diagnosis Therapy Diagnosis: n/a Height/Weight Height (Feet): 5 Height (Inches): 9.00 Weight (Pounds): 260 Weight (Ounces): 0.0 Precautions Precautions/Isolations: Aspiration, Fall Prevention, Standard Precautions, Pressure Ulcer Referral Physician: Harpreet Medical History Pertinent Medical History: Arthritis, CAD, COPD, DM, Dementia, HTN, Neuropathy Additional Medical History depression, HTN, GERD, edema, DM 2, COPD, coronary stent, transurethral resection, CAD, dementia, neuropathy, BPH, angioedema of tongue, anxi ety/depression Current History EMS from [facility] c/o SOB and fever Social History Home: Snf ADL-Prior Level of Function SCALE: Activities may be completed with or without assistive devices. 3-Gqbqdegtun-rsainem completes the activity by him/herself with no assistance from a helper. 5-Set-up or Clean-up Assistance-helper sets up or cleans up; patient completes activity. [place] assists only prior to or following the activity. 4-Supervision or Touching Assistance-helper provides verbal cues and/or touching/steadying and/or contact guard assistance as patient completes activity. Assistance may be provided throughout the activity or intermittently. 3-Partial/Moderate Assistance-helper does LESS THAN HALF the effort. [place] lifts, holds or supports trunk or limbs, but provides less than half the effort. 2-Substantial/Maximal Assistance-helper does MORE THAN HALF the effort. [place] lifts or holds trunk or limbs and provides more than half the effort. 3-Tbcwxnjgt-dlqmkf does ALL the effort. Patient does none of the effort to complete the activity. Or, the assistance of 2 or more helpers is required for the patient to complete the activity. If activity was not attempted, code reason: 7-Patient Refused. 9-Not Applicable-not attempted and the patient did not perform the activity before the current illness, exacerbation or injury. 10-Not Attempted due to Environmental Limitations-(lack of equipment, weather restraints, etc.). 88-Not Attempted due to Medical Conditions or Safety Concerns. ADL PLOF Comments Per pt and family report, pt required assistance with all ADLS at PLOF, assistance with transfers/mobility. Pt can usually feed himself. Self Care: Needed Some Help Functional Cognition: Needed Some Help OT Current Status Subjective Pt in bed, agreeable to OT tx. Pt responded to OT's questions/instructions, replying with simple words/phrases, and facial expressions. Mental Status/Objective Patient Orientation: Person, Confused Current Hand Dominance: Left Upper Extremity ROM WFL BUE shoulder flexion to approx 130 degrees, WFL at elbow bilaterally. Decreased R hand (baseline contractures) Upper Extremity Coordination Decreased R hand due to contractures. Pt able to use L hand fair ADL-Treatment Eating (QC): 88 Oral Hygiene (QC): 5 (Pt able to use oral sponge to swab mouth) Lower Body Dressing (QC): 1 (Per clincial judgment.) On/Off Footwear (QC): 1 (Per clincial judgment.) Toileting Hygiene (QC): 1 (Per clincial judgment.) Other Treatments Pt in recliner, agreeable to OT tx. PLOF provided by pt and family member, indicating pt required assistance with all ADLS at baseline. Pt able to use oral swab to swab his mouth after set up using L hand. In order to increase BUE strength and activity tolerance, pt completed x5 reps each BUE shoulder flexion, BUE elbow flexion/extension, and R hand finger flexion/extension. Pt encouraged to continue exercises throughout the day. Post tx, pt in bed, call light in reach and all needs met, bed alarm activated. Education OT Patient Education: Correct positioning, Exercise program, Modified ADL techniques, Progress toward Goal/Update tx plan, Purpose of tx/functional activities Teaching Recipient: Patient Teaching Methods: Demonstration, Discussion Response to Teaching: Return Demonstration OT Travel Assistant Goals Travel Assistant Goals 1=Demonstrate adherence to instructed precautions during ADL tasks. 2=Patient will verbalize/demonstrate understanding of assistive devices/modifications for ADL. 3=Patient will improve strength/tolerance for activity to enable patient to perform ADL's. OT Education/Plan Problem List/Assessment Assessment: Decreased Activ Tolerance, Decreased UE Strength, Impaired Funct Balance, Impaired I ADL's, Impaired Self-Care Skills No skilled OT Services indicated at this time. Pt requires assistance with all ADLs at PLOF, and is at his baseline. D/C from OT at this time. Discharge Recommendations Plan/Recommendations: Discharge/Goals Met Treatment Plan/Plan of Care Patient would benefit from OT for education, treatment and training to promote independence in ADL's, mobility, safety and/or upper extremity function for ADL's. Plan of Care: ADL Retraining, UE Funct Exercise/Act Treatment Duration: Feb 27, 2022 Frequency: 1 time per week (eval only) Estimated Hrs Per Day: .25 hour per day Agreement: Yes Rehab Potential: Poor Time/GCodes Start Time: 10:27 Stop Time: 10:35 Total Time Billed (hr/min): 8 Billed Treatment Time 1, MINOO SEXTON OT Feb 27, 2022 10:58
[2022-02-27] MEDS ORDERED: FAMO20TA3 PO (11:31)
[2022-02-27] MEDS ORDERED: INSU100V6 SQ (11:31)
[2022-02-27] MEDS ORDERED: ALB0.5V INH (11:31)
[2022-02-27] MEDS ORDERED: FLUC100T10 PO (11:31)
[2022-02-27] MEDS ORDERED: ASCO-262 PO (11:31)
[2022-02-27] MEDS ORDERED: VANCOMYCIN 1500 MG/NS 500 ML IVPB IV SCH ×2 (16:00)
[2022-02-27] MEDS: MICONAZOLE 2% POWDER (DESENEX AF) 90 GM TOP SCH ×2 (17:03→21:39)
--- NOTE | 2022-02-27 19:56 | History & Physical-Hospitalist ---
History of Present Illness HPI/Chief Complaint Dick Ann is a 76 year old male with PMH HTN, HLD, T2DM, CKD, chronic brady, recurrent UTIs due to MRD-E coli, dementia, who presented with fever and hypoxia. He resides at [facility]. He was hospitalized earlier this month with septic shock due to multi-drug resistant UTI. He was treated and returned to baseline. He was diagnosed with bronchitis a couple days ago. Yesterday he developed fever and hypoxia and was brought to the ER. He is a poor historian due to his dementia. His was present and we discussed goals of care and code status due to his recurrent hospitalizations and declining functional status. Source: patient, family Exam Limitations: clinical condition Date Seen 02/27/22 Time Seen by a Provider: 09:25 Attending Physician Bhaskar Alcantara MD PCP Admitting Physician: Jessi Mullins MD Attending Physician: Sami Lam MD Referring Physician Date of Admission Feb 26, 2022 at 13:32 Home Medications & Allergies Home Medications Reviewed patient Home Medication Reconciliation performed by pharmacy medication reconciliations windshield repair technician and/or nursing. Patients Allergies have been reviewed. Allergies Allergies Coded Allergies Penicillins (Unverified Allergy, Mild, HIVES, pt has rec Meropenem in the past, 10/21/21) duloxetine HCl (Verified Allergy, Mild, 11/16/19) Past Jhkfyoh-Dahrtf-Seqnyz Hx Patient Social History Smoking Status: Unknown if Ever Smoked Alcohol Use?: Unable to obtain Pt feels they are or have been: Unable to obtain Immunizations Up To Date Date of Influenza Vaccine: Feb 17, 2021 First/Initial COVID19 Vaccinat: 05/14/20 Second COVID19 Vaccination Evangelista: 06/03/20 Tetanus Booster (TDap): Unknown Date of Pneumonia Vaccine: Mar 07, 2010 Seasonal Allergies Seasonal Allergies: No Current Status Advance Directives: No Communicates: Verbally Primary Language: Montenegrin Preferred Spoken Language: Montenegrin Is interpretation needed?: Unable to obtain Implanted or Applied Medical D: None Past Medical History Surgeries: Cardiac, Coronary Stent, Eye Surgery, Transurethral Resection Pneumonia, Chronic Bronchitis, Sleep Apnea, COPD Currently Using CPAP: Yes Chronic Edema/Swelling, Coronary Artery Disease, High Cholesterol, Hypertension Dementia, Neuropathy Sexually Transmitted Disease: No HIV/AIDS: No Benign Prostatic Hyperpl, Prostate Problems, Neurogenic Bladder, UTI-Chronic Gastroesophageal Reflux, Chronic Constipation Arthritis, Chronic Back Pain Diabetes, Insulin dep Cataract Hearing Impairment: Hard of Hearing Sleep Difficulties, Anxiety, Depression Blood Disorders: No Adverse Reaction/Blood Tranf: No Family Medical History Family history: Hypertension 03 FATHER Stroke 03 MOTHER PSH: -CATARACT SURGERY -TURP 10/31/[address] LAROSE -CARDIAC CATHS--STENT X 1--LAST CATH 05/2017--PATENT STENT, NON-OCCLUSIVE CAD, NO INTERVENTION -CHOLECYSTETCOMY Review of Systems Constitutional: see HPI, fever Physical Exam Physical Exam Vital Signs Vital Signs - First Documented 02/26/22 02/26/22 02/26/22 10:53 11:55 15:07 Temp 39.4 Pulse 104 Resp 26 B/P (MAP) 129/60 (83) Pulse Ox 93 O2 Delivery OxyMask O2 Flow Rate 10.00 FiO2 40 Capillary Refill : Less Than 3 Seconds Height, Weight, BMI Height: 5'9.00" Weight: 260lbs. 0.0oz. 117.740489fk; 39.44 BMI Method:Stated General Appearance: No Apparent Distress, Chronically ill, Obese HEENT: PERRL/EOMI, Other (wearing BiPAP) Neck: Normal Inspection, Supple Respiratory: Lungs Clear, No Respiratory Distress, Other (wearing BiPAP) Cardiovascular: Regular Rate, Rhythm, No Murmur Gastrointestinal: Normal Bowel Sounds, Soft Extremity: Normal Inspection, No Pedal Edema Neurologic/Psychiatric: Alert, Normal Mood/Affect, Motor Weakness Skin: Normal Color, Warm/Dry Results Results/Procedures Labs Laboratory Tests 02/26/22 10:57 02/27/22 04:50 Patient resulted labs reviewed. Imaging: Reviewed Imaging Report Assessment/Plan Admission Diagnosis Septic shock due to pneumonia Admission Status: Inpatient Order (span 2 midnights) Reason for Inpatient Admission: IV antibiotics IV fluids Assessment and Plan Septic shock Pneumonia Lactic acidosis LILIANA on CKD IV fluids IV antibiotics, stop Vancomycin BiPAP as needed Transitioning to nasal cannula TeleICU consulted Chronic brady Recurrent MDR-UTIs HTN HLD T2DM Dementia Obesity Poor prognosis Goals of care discussion Continue home meds as able Discussed recent decline with , poor overall prognosis, will consider code status change Critical Care Critically Ill Patient Diagnosis/Problems Diagnosis/Problems (1) Septic shock Status: Acute (2) Pneumonia Status: Acute (3) Acute respiratory failure with hypoxia and hypercapnia Status: Acute (4) Lactic acidosis Status: Acute (5) Poor prognosis Status: Acute (6) Goals of care, counseling/discussion Status: Acute (7) Acute kidney injury superimposed on chronic kidney disease Status: Acute (8) Obesity Status: Chronic (9) T2DM (type 2 diabetes mellitus) Status: Chronic (10) History of ESBL E. coli infection Status: Chronic SAMI LAM MD Feb 27, 2022 19:56
[2022-02-27] MEDS: meTOprolol TARTRATE 50 MG (LOPRESSOR) TAB PO SCH (21:37)
[2022-02-27] MEDS: METOCLOPRAMIDE 5 MG (REGLAN) TAB PO SCH (21:37)
[2022-02-27] MEDS: FAMOTIDINE 20 MG (PEPCID) TABLET PO SCH (21:37)
[2022-02-27] MEDS: DOCUSATE SODIUM 100 MG (COLACE) CAP PO SCH (21:37)
[2022-02-27] MEDS: risperiDONE 1 MG (RisperDAL) TAB PO SCH (21:55)
[2022-02-28] MEDS: NS IV 1000 ML 1,000 ML IV SCH ×4 (00:27→20:19)
[2022-02-28] MEDS: RT-ALBUTEROL/IPRATROPIUM 3 ML (DUONEB) VIAL INH SCH ×6 (02:19→22:04)
[2022-02-28] MEDS: MEROPENEM 500 MG in NS (IVPB) 100 ML IV SCH ×4 (04:11→20:53)
[2022-02-28 04:39] LABS: BASOPHILS % (AUTO) 0 % (0-10); EOSINOPHILS # (AUTO) 0.2 10^3/uL (0.0-0.3); EOSINOPHILS % (AUTO) 3 % (0-10); HEMATOCRIT 36 % (40-54); LYMPHOCYTES # (AUTO) 1.2 10^3/uL (1.0-4.0); LYMPHOCYTES % (AUTO) 16 % (12-44); MEAN CORPUSCULAR HEMOGLOBIN 27 pg (25-34); MEAN CORPUSCULAR HGB CONC 31 g/dL (32-36); MEAN CORPUSCULAR VOLUME 88 fL (80-99); MEAN PLATELET VOLUME 10.1 fL (9.0-12.2); MONOCYTES # (AUTO) 0.5 10^3/uL (0.0-1.0); MONOCYTES % (AUTO) 7 % (0-12); NEUTROPHILS # (AUTO) 5.3 10^3/uL (1.8-7.8); NEUTROPHILS % (AUTO) 73 % (42-75); PLATELET COUNT 161 10^3/uL (130-400); WHITE BLOOD COUNT 7.3 10^3/uL (4.3-11.0)
[2022-02-28 05:05] LABS: ALBUMIN 2.7 GM/DL (3.2-4.5); BILIRUBIN,TOTAL 0.3 MG/DL (0.1-1.0); CALCIUM 8.3 MG/DL (8.5-10.1); CREATININE SERUM 1.26 MG/DL (0.60-1.30); MAGNESIUM 1.6 MG/DL (1.6-2.4); PHOSPHORUS 2.9 MG/DL (2.3-4.7); POTASSIUM 3.8 MMOL/L (3.6-5.0); TOTAL PROTEIN 5.9 GM/DL (6.4-8.2)
[2022-02-28] MEDS: MAGNESIUM 1 GM/100 ML IVPB 100 ML IV SCH ×2 (05:24→05:34)
[2022-02-28] MEDS: POTASSIUM CL 10MEQ/50ML IVPB 50 ML IV SCH (05:24)
[2022-02-28] MEDS: KCL 20 MEQ TAB (K-DUR) PO SCH (05:24)
[2022-02-28] MEDS ORDERED: NS IV 500 ML 500 ML IV PRN (05:30)
[2022-02-28] MEDS ORDERED: MAGNESIUM 1 GM/100 ML IVPB 200 ML IV ONE (05:32)
[2022-02-28] MEDS: METOCLOPRAMIDE 5 MG (REGLAN) TAB PO SCH ×4 (05:34→20:19)
[2022-02-28] MEDS: risperiDONE 1 MG (RisperDAL) TAB PO SCH ×2 (08:22→20:19)
[2022-02-28] MEDS: ISOSORBIDE MONONITRATE 30 MG (IMDUR) TAB PO SCH (08:22)
[2022-02-28] MEDS: DOCUSATE SODIUM 100 MG (COLACE) CAP PO SCH ×2 (08:22→20:19)
[2022-02-28] MEDS: PANTOPRAZOLE 40 MG (PROTONIX) VIAL IV SCH (08:23)
[2022-02-28] MEDS: fluCOnazole (DIFLUCAN) 100 MG TAB PO SCH (08:23)
[2022-02-28] MEDS: MONTELUKAST 10 MG (SINGULAIR) TAB PO SCH (08:23)
[2022-02-28] MEDS: meTOprolol TARTRATE 50 MG (LOPRESSOR) TAB PO SCH ×2 (08:23→20:19)
[2022-02-28] MEDS: BETHANECHOL 25 MG (URECHOLINE) TAB PO SCH ×4 (08:34→20:20)
--- NOTE | 2022-02-28 10:36 | Physical Therapy Daily Note ---
PT Daily Note-Current Subjective Patient in bed pre tx, agrees to PT, has unrated pain in legs. Pain Section J - Health Conditions 1. Rarely or not at all 2. Occasionally 3. Frequently 4. Almost constantly 8. Unable to answer Pain Effect on Sleep: 8 Pain Interference with Therapy: 8 Pain Interference w/Day-to-Day: 8 Appearance Patient in bed post tx with nurse call, phone, tray, bed alarm on. Patient's brady anchor has come loose, brady appears to still be in good, nurse notified. Mental Status Patient Orientation: Person, Confused Attachments: Oxygen, Brady Catheter, IV Transfers SCALE: Activities may be completed with or without assistive devices. 6-Dtddvhavdi-uivntmb completes the activity by him/herself with no assistance from a helper. 5-Set-up or Clean-up Assistance-helper sets up or cleans up; patient completes activity. [place] assists only prior to or following the activity. 4-Supervision or Touching Assistance-helper provides verbal cues and/or touching/steadying and/or contact guard assistance as patient completes activity. Assistance may be provided throughout the activity or intermittently. 3-Partial/Moderate Assistance-helper does LESS THAN HALF the effort. [place] lifts, holds or supports trunk or limbs, but provides less than half the effort. 2-Substantial/Maximal Assistance-helper does MORE THAN HALF the effort. [place] lifts or holds trunk or limbs and provides more than half the effort. 2-Ugdalcsxp-iafjbo does ALL the effort. Patient does none of the effort to complete the activity. Or, the assistance of 2 or more helpers is required for the patient to complete the activity. If activity was not attempted, code reason: 7-Patient Refused. 9-Not Applicable-not attempted and the patient did not perform the activity before the current illness, exacerbation or injury. 10-Not Attempted due to Environmental Limitations-(lack of equipment, weather restraints, etc.). 88-Not Attempted due to Medical Conditions or Safety Concerns. Roll Left & Right (QC): 3 Sit to Lying (QC): 1 Lying to Sitting/Side of Bed(Q: 2 Sit to Stand (QC): 2 Max assist for supine to sit, max assist for sit to stand. Patient was not quite able to stand completely and couldn't use a walker in front of him. Patient stood x2 for a few seconds each time, needed assist of 2 to lay back down and scoot up. Exercises Supine Ex: Ankle pumps, Heel Slides Supine Reps: 10 (attempted 15 reps but patient would only do 10) Treatments sitting, standing, LE ROM Assessment Current Status: Poor Progress slight progress with functional mobility but could not stand completely yet PT Longterm Goals Opener Tender Goals PT Longterm Goals Time Frame: Mar 06, 2022 Roll Left & Right (QC): 3 Sit to Lying (QC): 3 Lying-Sitting on Side/Bed(QC): 3 Sit to Stand (QC): 3 Chair/Uqv-ld-Vyiod Xfer(QC): 3 PT Plan Problem List Problem List: Activity Tolerance, Functional Strength, Safety, Balance, Gait, Transfer, Bed Mobility, ROM Treatment/Plan Treatment Plan: Continue Plan of Care Treatment Plan: Bed Mobility, Education, Functional Activity Mehdi, Functional Strength, Gait, Safety, Therapeutic Exercise, Transfers Treatment Duration: Mar 06, 2022 Frequency: 5 times per week Estimated Hrs Per Day: .25 hour per day Patient and/or Family Agrees t: Yes Safety Risks/Education Patient Education: Correct Positioning, Safety Issues Teaching Recipient: Patient Teaching Methods: Demonstration, Discussion Response to Teaching: Reinforcement Needed Time Time In: 1000 Time Out: 1013 Total Billed Treatment Time: 13 Total Billed Treatment 1 visit FA PATSY TURNER PT Feb 28, 2022 10:36
[2022-02-28] MEDS: UMECLIDINIUM BROMIDE (INCRUSE ELLIPTA) 7'S IH SCH (10:57)
[2022-02-28] MEDS: FLUTICASONE/VILANTEROL 100 MCG 14'S (BREO) IH SCH (10:57)
--- NOTE | 2022-02-28 12:44 | Tele-ICU Progress Note ---
Subjective Date Seen by a Provider: Feb 28, 2022 Time Seen by a Provider: 12:39 Subjective/Events-last exam Tele-ICU Physician , Progress Note ) Available chart/ vitals / labs / Images reviewed Video assessment done using teleICU camera, rest of exam as per RN Discussed with RN Events overnight : Afebrile hemodynamically stable Respiratory - on nasal cannula I/O = Drips: Pressors- no Consultants: Hospital course:,improving septic shock and respirarory failure A/P CVS/HTN stable Rhythem NSR Echo Respiratory System. OFF bipap. GI Kidneys. cr down to 1.26 . 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 Discussed with RN to reach out if any questions or concerns Sepsis Event Evaluation Height, Weight, BMI Height: 5'9.00" Weight: 260lbs. 0.0oz. 117.214374jo; 38.49 BMI Method:Stated Focused Exam Lactate Level 02/26/22 17:52: Lactic Acid Level 3.03*H 02/26/22 20:05: Lactic Acid Level 2.15*H 02/26/22 22:05: Lactic Acid Level 1.84 Exam Exam Patient acknowledged, consented, and participated in this virtual visit which was conducted using real time audio/video Vital Signs Date Time Temp Pulse Resp B/P (MAP) Pulse Ox O2 Delivery O2 Flow Rate FiO2 02/28/22 11:51 37.3 02/28/22 10:59 99 High Flow N/C 5.00 02/28/22 10:58 99 High Flow N/C 5.00 02/28/22 10:58 99 High Flow N/C 5.00 02/28/22 10:00 78 22 165/101 (122) 95 NIV Bilevel 40.00 02/28/22 09:00 89 24 158/85 (109) 92 NIV Bilevel 40.00 02/28/22 08:00 101 24 169/107 (127) 99 NIV Bilevel 40.00 02/28/22 08:00 36.5 02/28/22 08:00 98 NIV Bilevel 40 02/28/22 07:13 85 02/28/22 07:00 86 24 159/86 (110) 96 NIV Bilevel 40.00 02/28/22 06:40 86 19 96 40.00 02/28/22 06:00 75 27 150/91 (110) 96 NIV Bilevel 40.00 02/28/22 05:41 75 152/86 (108) 96 NIV Bilevel 40.00 02/28/22 05:00 84 171/91 (117) 97 NIV Bilevel 40.00 02/28/22 04:41 NIV Bilevel 40.00 02/28/22 04:41 98 NIV Bilevel 40 02/28/22 04:00 87 23 147/76 (99) 97 NIV Bilevel 40.00 02/28/22 03:46 36.0 02/28/22 03:00 93 170/92 (116) 96 NIV Bilevel 40.00 02/28/22 02:19 80 24 96 40.00 02/28/22 02:00 75 162/86 (112) 96 NIV Bilevel 40.00 02/28/22 01:00 81 34 145/88 (115) 96 NIV Bilevel 40.00 02/28/22 01:00 81 02/28/22 00:30 96 NIV Bilevel 40 02/28/22 00:00 86 38 136/77 (94) 94 NIV Bilevel 40.00 02/27/22 23:30 36.8 02/27/22 23:00 87 151/82 (109) 94 NIV Bilevel 40.00 02/27/22 22:35 81 34 95 NIV Bilevel 40.00 02/27/22 22:30 81 21 96 40.00 02/27/22 22:00 89 34 170/95 (115) 98 High Flow N/C 5.00 02/27/22 21:00 95 25 154/84 (110) 93 High Flow N/C 5.00 02/27/22 20:22 37.2 02/27/22 20:05 95 High Flow N/C 5.00 02/27/22 20:02 High Flow N/C 5.00 02/27/22 20:00 90 11 121/95 (101) 96 High Flow N/C 5.00 02/27/22 19:00 91 12 139/99 (120) 95 High Flow N/C 5.00 02/27/22 19:00 91 02/27/22 18:34 96 High Flow N/C 5.00 02/27/22 18:00 86 26 161/72 (101) 95 Nasal Cannula 5.00 02/27/22 17:00 86 8 160/89 (112) 96 Nasal Cannula 5.00 02/27/22 16:00 85 13 154/83 (106) 91 Nasal Cannula 5.00 02/27/22 16:00 37.4 02/27/22 16:00 96 NIV Bilevel 50 02/27/22 15:00 86 14 146/69 (94) 97 Nasal Cannula 5.00 02/27/22 14:18 97 High Flow N/C 5.00 02/27/22 14:00 82 19 135/68 (90) 97 Nasal Cannula 5.00 02/27/22 13:00 80 25 132/71 (91) 95 Nasal Cannula 5.00 I & O 02/28/22 07:00 Intake Total 2670 ml Output Total 4900 ml Balance -2230 ml Height & Weight Height: 5'9.00" Weight: 260lbs. 0.0oz. 117.546868co; 38.49 BMI Method:Stated General Appearance: No Apparent Distress, Chronically ill, Obese HEENT: PERRL/EOMI, Other (wearing BiPAP) Neck: Normal Inspection, Supple Respiratory: Lungs Clear, No Respiratory Distress, Other (wearing BiPAP) Cardiovascular: Regular Rate, Rhythm, No Murmur Capillary Refill: Less Than 3 Seconds Extremity: Normal Inspection, No Pedal Edema Neurologic/Psychiatric: Alert, Normal Mood/Affect, Motor Weakness Skin: Normal Color, Warm/Dry Lymphatic: No Adenopathy Results Lab Laboratory Tests 02/27/22 04:50 02/28/22 04:23 Assessment/Plan Assessment/Plan 1. septic shock improved. 2. recurrent UTI due to chr. indwelling brady cath. 3. ac. and chr. ckd improving. 4.acute respiratory failure improving. plan. continue antibiotics and ivf. wean o2 as tolerated Critical Care: Critically Ill Patient Time spent with patient (mins): 15 STEPH MOISE MD Feb 28, 2022 12:44
[2022-02-28] MEDS ORDERED: TROUGH ORDER-PHARMACY XX ONE (15:00)
[2022-02-28] MEDS: MICONAZOLE 2% POWDER (DESENEX AF) 90 GM TOP SCH ×2 (18:33→20:19)
--- NOTE | 2022-02-28 19:29 | Progress Note - Hospitalist ---
Subjective HPI/CC On Admission Date Seen by Provider: Feb 28, 2022 Time Seen by Provider: 09:20 Dick Ann is a 76 year old male with PMH HTN, HLD, T2DM, CKD, chronic brady, recurrent UTIs due to MRD-E coli, dementia, who presented with fever and hypoxia. He resides at [facility]. He was hospitalized earlier this month with septic shock due to multi-drug resistant UTI. He was treated and returned to baseline. He was diagnosed with bronchitis a couple days ago. Yesterday he developed fever and hypoxia and was brought to the ER. He is a poor historian due to his dementia. His was present and we discussed goals of care and code status due to his recurrent hospitalizations and declining functional status. Subjective/Events-last exam He is awake and alert. He denies pain. He denies shortness of breath. Focused Exam Lactate Level 02/26/22 17:52: Lactic Acid Level 3.03*H 02/26/22 20:05: Lactic Acid Level 2.15*H 02/26/22 22:05: Lactic Acid Level 1.84 Objective Exam Vital Signs Vital Signs Date Time Temp Pulse Resp B/P (MAP) Pulse Ox O2 Delivery O2 Flow Rate FiO2 02/28/22 19:09 36.8 02/28/22 18:08 95 High Flow N/C 5.00 02/28/22 18:00 79 02/28/22 16:00 40 02/28/22 11:00 45 Capillary Refill : Less Than 3 Seconds General Appearance: No Apparent Distress, Obese Respiratory: Lungs Clear, No Respiratory Distress Cardiovascular: Regular Rate, Rhythm, No Murmur Gastrointestinal: Normal Bowel Sounds, Soft Extremity: Normal Inspection, Pedal Edema Neurologic/Psychiatric: Alert, Disoriented, Motor Weakness Results/Procedures Lab Laboratory Tests 02/28/22 04:23 Patient resulted labs reviewed. Imaging: Reviewed Imaging Report Assessment/Plan Assessment and Plan Assess & Plan/Chief Complaint Septic shock Pneumonia Lactic acidosis LILIANA on CKD Decrease IV fluids IV antibiotics BiPAP as needed Supplemental oxygen as needed MAT protocol TeleICU following Chronic brady Recurrent MDR-UTIs HTN HLD T2DM Dementia Obesity Poor prognosis Goals of care discussion Continue home meds as able DVT prophylaxis: Lovenox Critical Care Critically Ill Patient Diagnosis/Problems Diagnosis/Problems (1) Septic shock Status: Acute (2) Pneumonia Status: Acute (3) Acute respiratory failure with hypoxia and hypercapnia Status: Acute (4) Lactic acidosis Status: Acute (5) Poor prognosis Status: Acute (6) Goals of care, counseling/discussion Status: Acute (7) Acute kidney injury superimposed on chronic kidney disease Status: Acute (8) Obesity Status: Chronic (9) T2DM (type 2 diabetes mellitus) Status: Chronic (10) History of ESBL E. coli infection Status: Chronic SAMI LAM MD Feb 28, 2022 19:29
[2022-02-28] MEDS ORDERED: ENOXAPARIN 40 MG/0.4 ML (LOVENOX) SYR SC SCH (20:00)
[2022-02-28] MEDS: FAMOTIDINE 20 MG (PEPCID) TABLET PO SCH (20:19)
[2022-03-01] MEDS: RT-ALBUTEROL/IPRATROPIUM 3 ML (DUONEB) VIAL INH SCH ×3 (02:08→10:55)
[2022-03-01] MEDS: MEROPENEM 500 MG in NS (IVPB) 100 ML IV SCH ×2 (03:22→11:06)
[2022-03-01 04:35] LABS: BASOPHILS % (AUTO) 0 % (0-10); EOSINOPHILS # (AUTO) 0.2 10^3/uL (0.0-0.3); EOSINOPHILS % (AUTO) 4 % (0-10); HEMATOCRIT 37 % (40-54); HEMOGLOBIN 11.7 g/dL (13.3-17.7); LYMPHOCYTES # (AUTO) 1.2 10^3/uL (1.0-4.0); LYMPHOCYTES % (AUTO) 18 % (12-44); MEAN CORPUSCULAR HEMOGLOBIN 27 pg (25-34); MEAN CORPUSCULAR HGB CONC 31 g/dL (32-36); MEAN CORPUSCULAR VOLUME 87 fL (80-99); MEAN PLATELET VOLUME 10.6 fL (9.0-12.2); MONOCYTES # (AUTO) 0.6 10^3/uL (0.0-1.0); MONOCYTES % (AUTO) 8 % (0-12); NEUTROPHILS # (AUTO) 4.7 10^3/uL (1.8-7.8); NEUTROPHILS % (AUTO) 70 % (42-75); PLATELET COUNT 144 10^3/uL (130-400); WHITE BLOOD COUNT 6.7 10^3/uL (4.3-11.0)
[2022-03-01 05:02] LABS: ALBUMIN 2.8 GM/DL (3.2-4.5); BILIRUBIN,TOTAL 0.4 MG/DL (0.1-1.0); CALCIUM 8.4 MG/DL (8.5-10.1); CREATININE SERUM 1.03 MG/DL (0.60-1.30); MAGNESIUM 1.7 MG/DL (1.6-2.4); PHOSPHORUS 2.3 MG/DL (2.3-4.7); POTASSIUM 4.2 MMOL/L (3.6-5.0)
[2022-03-01] MEDS: POTASSIUM CL 10MEQ/50ML IVPB 50 ML IV SCH (05:10)
[2022-03-01] MEDS: KCL 20 MEQ TAB (K-DUR) PO SCH (05:10)
[2022-03-01] MEDS: MAGNESIUM 1 GM/100 ML IVPB 100 ML IV SCH ×2 (05:10→05:44)
[2022-03-01] MEDS: METOCLOPRAMIDE 5 MG (REGLAN) TAB PO SCH ×2 (05:44→11:06)
[2022-03-01] MEDS: UMECLIDINIUM BROMIDE (INCRUSE ELLIPTA) 7'S IH SCH (07:01)
[2022-03-01] MEDS: FLUTICASONE/VILANTEROL 100 MCG 14'S (BREO) IH SCH (07:01)
[2022-03-01] MEDS: BETHANECHOL 25 MG (URECHOLINE) TAB PO SCH (08:13)
[2022-03-01] MEDS: meTOprolol TARTRATE 50 MG (LOPRESSOR) TAB PO SCH (08:13)
[2022-03-01] MEDS: ISOSORBIDE MONONITRATE 30 MG (IMDUR) TAB PO SCH (08:13)
[2022-03-01] MEDS: risperiDONE 1 MG (RisperDAL) TAB PO SCH (08:13)
[2022-03-01] MEDS: MONTELUKAST 10 MG (SINGULAIR) TAB PO SCH (08:13)
[2022-03-01] MEDS: fluCOnazole (DIFLUCAN) 100 MG TAB PO SCH (08:14)
[2022-03-01] MEDS: MICONAZOLE 2% POWDER (DESENEX AF) 90 GM TOP SCH (08:14)
[2022-03-01] MEDS: DOCUSATE SODIUM 100 MG (COLACE) CAP PO SCH (08:14)
[2022-03-01] MEDS: NS IV 1000 ML 1,000 ML IV SCH (08:14)
[2022-03-01] MEDS: PANTOPRAZOLE 40 MG (PROTONIX) VIAL IV SCH (08:14)
--- NOTE | 2022-03-01 10:07 | Physical Therapy Progress Note ---
Therapy Progress Note Attempted to see pt at 950, pt is sitting up in bed with O2 canulaout of nostrils so MEDICAL ASSISTANT SUPERVISOR assists with correcting. Pt is asked to TF OOB but pt declines so MEDICAL ASSISTANT SUPERVISOR encourages Supine Ex but pt again declines. MEDICAL ASSISTANT SUPERVISOR will check back on pt later today to see if tx can be completed. VERN MEAD MEDICAL ASSISTANT SUPERVISOR Mar 01, 2022 10:07
[2022-03-01] MEDS ORDERED: CEFD300C3 PO (11:48)
--- NOTE | 2022-03-01 11:52 | Discharge Inst-Skilled Nursing ---
Discharge Inst-Skilled NF Reconcile Patient Problems Problems Reviewed?: Yes Patient Instructions Patient Instructions: Take medications as prescribed. Complete your course of antibiotics even if you are feeling better. Follow up with your PCP during the next assisted rounds. Return with worsening shortness of breath, confusion, or if you feel like you are getting worse. Consult/Follow Up/Orders Follow Up Appt.: next assisted rounds Skilled NF Admit to: Via [facility] Certification ([facility]) I certify that SNF services are required to be given on an inpatient basis because of the above named patient's need for [facility] care on a continuing basis for the conditions(s) for which he/she was receiving inpatient hospital services prior to his/her transfer to the SNF. Residential Facility Order: Nursing Services, Mobile Patrol Officer-Evaluate & Treat, Physical Therapy-Evaluate & Treat Oxygen Delivery Method: Nasal Cannula Oxygen Flow Rate L/min (Range): 2-6 Discharge Diet: Low Sodium Diet Daily Activity as Tolerated: Yes Resuscitation Status: Full Code New & Resume Previous Orders Eneida Lam Mar 01, 2022 11:49 ENEIDA LAM MD Mar 01, 2022 11:52
--- NOTE | 2022-03-01 11:58 | Tele-ICU Progress Note ---
Subjective Date Seen by a Provider: Mar 01, 2022 Time Seen by a Provider: 08:20 Subjective/Events-last exam (Tele-ICU Physician , Progress Note ) Service provided via interactive audio and video telecommunications E-CARE system to a patient admitted to ICU bed in [facility]. Available chart/ vitals / labs / Images reviewed Video assessment done using teleICU camera, rest of exam as per RN Discussed with RN Events overnight : febrile , but better hemodynamically stable Respiratory - 5L I/O = NEG 2 L Consultants: Hospital course: (02/26) 76yM admitted from the ED with fever and shortness of breath. Chest x- ray shows edema, multifocal infection, atelectasis, UTI 02/27 - placed on BIPAP 04/11 rr 22 tv 500 , 40 % 04/01 = off bipap A/P Acute resp failure ( hypoxic , hypercapneic - abg normalized , off bipap on NC 5 L FEVER - ? chronic UTI ,, ? PNA other sourse Sepsis. elevated lactate -BP normalized with hydration UTI, recurrent -brady ( chronic ) - ? replaced in ER -History of ESBL E coli -Multiple prior urine cultures with ESBL E coli- started on MErrem based on previous sensitivity - and VANCO -last cx + only for yeast - on diflucan po BOBO -CPAP at home ? - to cont nocturnal Lethargy / hypercapnea , ? TME ( with h/o dementia) -RESOLVED LILIANA on CKD - hydration provided -RESOLVED < nl creatinign , DM II - ISS h/o Esophageal candidiasis / Esophageal ulcer by EGD 10/25/21 - tx-ed Lines : periph lines , (Central Line Necessity Reviewed) Brady: + OG: Nutrition: po when AAO Analgesia: Anxiety/ delirium VTE Prophylaxis: hep sq Stress Ulcer Prophylaxis: Plans in collaboration with bedside consultants and IM MDs. Discussed with RN to reach out if any questions or concerns A total of10 minutes of critical care time was devoted to this patient today, required to treat and/or prevent further deterioration of critical care condition ( as above ) . Sepsis Event Evaluation Height, Weight, BMI Height: 5'9.00" Weight: 260lbs. 0.0oz. 117.057956xf; 37.97 BMI Method:Stated Focused Exam Lactate Level 02/26/22 17:52: Lactic Acid Level 3.03*H 02/26/22 20:05: Lactic Acid Level 2.15*H 02/26/22 22:05: Lactic Acid Level 1.84 Exam Exam Patient acknowledged, consented, and participated in this virtual visit which was conducted using real time audio/video Vital Signs Date Time Temp Pulse Resp B/P (MAP) Pulse Ox O2 Delivery O2 Flow Rate FiO2 03/01/22 11:52 Nasal Cannula 03/01/22 11:00 67 13 151/82 (105) 97 High Flow N/C 5.00 03/01/22 10:56 96 High Flow N/C 5.00 03/01/22 10:00 73 14 150/84 (106) 93 High Flow N/C 5.00 03/01/22 09:00 78 17 130/71 (90) 95 High Flow N/C 5.00 03/01/22 08:00 96 High Flow N/C 5.00 03/01/22 08:00 92 10 173/92 (119) 96 High Flow N/C 5.00 03/01/22 07:03 High Flow N/C 5.00 03/01/22 07:02 High Flow N/C 5.00 03/01/22 07:00 84 15 177/97 (123) 90 High Flow N/C 5.00 03/01/22 07:00 91 High Flow N/C 5.00 03/01/22 06:53 84 03/01/22 06:00 88 28 170/109 (129) 96 High Flow N/C 5.00 03/01/22 05:00 81 21 175/102 (125) 96 High Flow N/C 5.00 03/01/22 04:14 96 High Flow N/C 5.00 03/01/22 03:36 36.8 High Flow N/C 5.00 03/01/22 03:35 81 15 153/85 (95) 92 High Flow N/C 5.00 03/01/22 03:00 88 160/94 (112) 96 High Flow N/C 5.00 03/01/22 02:08 97 High Flow N/C 5.00 03/01/22 02:00 82 156/95 (104) 96 High Flow N/C 5.00 03/01/22 01:21 81 8 160/81 (106) 98 High Flow N/C 5.00 03/01/22 01:00 85 03/01/22 00:33 97 High Flow N/C 5.00 03/01/22 00:00 86 20 159/85 (109) 100 High Flow N/C 5.00 02/28/22 23:00 86 24 157/89 (111) 98 NIV Bilevel 40.00 02/28/22 22:47 36.8 02/28/22 22:04 NIV Bilevel 40.00 02/28/22 22:04 81 21 99 40.00 02/28/22 22:00 81 152/83 (106) 97 High Flow N/C 5.00 02/28/22 21:00 85 31 155/93 (112) 96 High Flow N/C 5.00 02/28/22 20:00 96 High Flow N/C 5.00 02/28/22 20:00 77 26 157/84 (99) 98 High Flow N/C 5.00 02/28/22 19:20 80 17 142/88 (100) 97 High Flow N/C 5.00 02/28/22 19:09 36.8 02/28/22 19:00 16 96 High Flow N/C 5.00 02/28/22 19:00 80 02/28/22 18:08 95 High Flow N/C 5.00 02/28/22 18:00 79 91 NIV Bilevel 40.00 02/28/22 17:00 86 146/95 (112) 98 NIV Bilevel 40.00 02/28/22 16:00 82 150/93 (112) 96 NIV Bilevel 40.00 02/28/22 16:00 98 NIV Bilevel 40 02/28/22 15:36 36.2 02/28/22 15:01 97 High Flow N/C 5.00 02/28/22 15:00 73 141/120 (127) 96 NIV Bilevel 40.00 02/28/22 14:00 86 130/109 (116) 97 NIV Bilevel 40.00 02/28/22 13:00 75 143/91 (108) 96 NIV Bilevel 40.00 02/28/22 12:48 78 02/28/22 12:00 74 151/91 (111) 98 NIV Bilevel 40.00 02/28/22 12:00 98 NIV Bilevel 40 I & O 03/01/22 07:00 Intake Total 2980 ml Output Total 4650 ml Balance -1670 ml Height & Weight Height: 5'9.00" Weight: 260lbs. 0.0oz. 117.677975sb; 37.97 BMI Method:Stated General Appearance: No Apparent Distress, Obese HEENT: PERRL/EOMI, Other Neck: Normal Inspection, Supple Respiratory: Lungs Clear, No Respiratory Distress Cardiovascular: Regular Rate, Rhythm, No Murmur Capillary Refill: Less Than 3 Seconds Extremity: Normal Inspection, Pedal Edema Neurologic/Psychiatric: Alert, Disoriented, Motor Weakness Skin: Normal Color, Warm/Dry Lymphatic: No Adenopathy Results Lab Laboratory Tests 02/28/22 04:23 03/01/22 04:20 Assessment/Plan Assessment/Plan 1 LILLIAM KHAN MD Mar 01, 2022 11:58
--- NOTE | 2022-03-01 14:25 | Physical Therapy Progress Note ---
Therapy Progress Note Pt declined PT tx again as pt is to d/c. No tx rendered. VERN MEAD RETAIL ASSOCIATE Mar 01, 2022 14:25
--- NOTE | 2022-03-01 17:12 | Discharge Summary ---
Discharge Summary Hospital Course Problems/Dx: (1) Septic shock Status: Acute (2) Pneumonia Status: Acute (3) Acute respiratory failure with hypoxia and hypercapnia Status: Acute (4) Lactic acidosis Status: Acute (5) Poor prognosis Status: Acute (6) Goals of care, counseling/discussion Status: Acute (7) Acute kidney injury superimposed on chronic kidney disease Status: Acute (8) Obesity Status: Chronic (9) T2DM (type 2 diabetes mellitus) Status: Chronic (10) History of ESBL E. coli infection Status: Chronic Hospital Course Date of Admission: Feb 26, 2022 at 13:32 Admission Diagnosis : Septic shock due to pneumonia Family Physician/Provider: Verena Lance MD Date of Discharge: 03/01/22 Discharge Diagnosis: Septic shock due to pneumonia Hospital Course: Dick Ann is a 76 year old male with PMH HTN, HLD, T2DM, CKD, BPH, chronic brady with recurrent UTIs, obesity, who was admitted with septic shock due to pneumonia. He was treated with IV fluids and antibiotics. He also had acute on chronic respiratory failure with hypoxia and hypercapnia. He required BiPAP in itially but was transitioned back to nasal cannula prior to discharge. He will complete a course of Omnicef as an outpatient. He was discharged back to [facility] in improved stable condition. He has a poor long-term prognosis due to his declining functional status, advancing dementia, and recurrent hospitalizations. He would benefit from a palliative care/hospice referral. Labs and Pending Lab Test: Laboratory Tests 02/28/22 20:31: Glucometer 134H 03/01/22 04:20: White Blood Count 6.7, Red Blood Count 4.28L, Hemoglobin 11.7L, Hematocrit 37L, Mean Corpuscular Volume 87, Mean Corpuscular Hemoglobin 27, Mean Corpuscular Hemoglobin Concent 31L, Red Cell Distribution Width 14.7H, Platelet Count 144, Mean Platelet Volume 10.6, Immature Granulocyte % (Auto) 0, Neutrophils (%) (Auto) 70, Lymphocytes (%) (Auto) 18, Monocytes (%) (Auto) 8, Eosinophils (%) (Auto) 4, Basophils (%) (Auto) 0, Neutrophils # (Auto) 4.7, Lymphocytes # (Auto) 1.2, Monocytes # (Auto) 0.6, Eosinophils # (Auto) 0.2, Basophils # (Auto) 0.0, Immature Granulocyte # (Auto) 0.0, Sodium Level 137, Potassium Level 4.2, Chloride Level 104, Carbon Dioxide Level 22, Anion Gap 11, Blood Urea Nitrogen 16, Creatinine 1.03, Estimat Glomerular Filtration Rate 76, BUN/Creatinine Ratio 16, Glucose Level 135H, Calcium Level 8.4L, Corrected Calcium 9.4, Phosphorus Level 2.3, Magnesium Level 1.7, Total Bilirubin 0.4, Aspartate Amino Transf (AST/SGOT) 20, Alanine Aminotransferase (ALT/SGPT) 19, Alkaline Phosphatase 80, Total Protein 6.0L, Albumin 2.8L Microbiology 02/26/22 MRSA Screen - Final, Complete MRSA not isolated 02/26/22 Urine Culture - Final, Complete YEAST 02/26/22 Blood Culture - Preliminary, Resulted No growth Home Meds Active Cefdinir 300 Mg Capsule 300 Mg PO BID 5 Days Reported Albuterol Sulfate 2.5 Mg/0.5 Ml Vial.neb 2.5 Mg INH Q4H PRN Lantus (Insulin Glargine,Hum.rec.anlog) 100 Unit/Ml Vial 30 Unit SQ HS Vitamin C (Ascorbate Calcium) 500 Mg Tablet 1,500 Mg PO DAILY TAKES 3 (500MG) TABS Acid Air Tank Assembler (FAMOTIDINE) (Famotidine) 20 Mg Tablet 20 Mg PO BID Fluconazole 100 Mg Tablet 100 Mg PO DAILY STARTED 02-23-2022 END DATE 03-04-2022 Pantoprazole Sodium 40 Mg Tablet.dr 40 Mg PO DAILY Metoclopramide HCl 5 Mg Tablet 5 Mg PO ACHS Cepacol Sorethroat-Cough Jeyson (Dextromethorphan HBr/B-Sergio) 5 Mg-7.5 Mg Lozenge 1 Each PO EVERY 2 HOURS PRN Nystatin 100,000 Unit/Gram Cream..g. 1 Applic TP TID APPLY TO FOLDS Miralax (Polyethylene Glycol 3350) 17 Gram Powd.pack 17 Gm PO Q48H Amlodipine Besylate 5 Mg Tablet 5 Mg PO DAILY NOTIFY CHARGE NURSE IF SBP>190 OR >100 Breo Ellipta 100-25 Mcg INH (Fluticasone/Vilanterol) 100 Mcg-25 Mcg/Dose Blst.w.dev 1 Puff INH DAILY Imodium A-D (Loperamide HCl) 2 Mg Capsule 2 Mg PO UD PRN MDD 16MG TAKE AFTER EACH LOOSE STOOL Ondansetron Odt (Ondansetron) 4 Mg Tab.rapdis 4 Mg PO Q4H PRN Tessalon Perles (Benzonatate) 100 Mg Capsule 100 Mg PO TID PRN Isosorbide Mononitrate ER (Isosorbide Mononitrate) 30 Mg Tab.er.24h 30 Mg PO DAILY Albuterol Sulfate 2.5 Mg/0.5 Ml Vial.neb 3 Ml NEB QID Cholestyramine Packet (Cholestyramine (with Sugar)) 4 Gm Powd.pack 1 Packet PO DAILY PRN Montelukast Sodium 10 Mg Tablet 10 Mg PO DAILY Mucus Relief (Guaifenesin) 600 Mg Tab.er.12h 600 Mg PO QID PRN Bethanechol Chloride 50 Mg Tablet 50 Mg PO QIDACHS Losartan Potassium 50 Mg Tablet 50 Mg PO Q12H Metoprolol Tartrate 50 Mg Tablet 50 Mg PO BID Potassium Chloride 20 Meq Tablet.er 20 Meq PO DAILY Spiriva Respimat 2.5MCG/ACTUATION (Tiotropium [place]) 4 Gm Mist.inhal 2 Puff IH DAILY Furosemide 20 Mg Tablet 20 Mg PO DAILY Zocor (Simvastatin) 10 Mg Tablet 10 Mg PO HS Tylenol (Acetaminophen) 325 Mg Tablet 650 Mg PO Q4H PRN TAKES 2 (325MG) TABS Trazodone HCl 150 Mg Tablet 150 Mg PO HS Risperidone 2 Mg Tablet 2 Mg PO Q12H Docusate Sodium 100 Mg Capsule 100 Mg PO BID Citalopram HBr (Citalopram Hydrobromide) 20 Mg Tablet 20 Mg PO DAILY Assessment/Pt Instructions See instructions Discharge Planning: >30 minutes discharge planning Discharge Instructions Discharge Diet: Low Sodium Diet Activity as Tolerated: Yes Discharge Physical Examination Vital Signs Vital Signs Date Time Temp Pulse Resp B/P (MAP) Pulse Ox O2 Delivery O2 Flow Rate FiO2 03/01/22 13:00 68 23 156/92 (113) 98 High Flow N/C 5.00 03/01/22 03:36 36.8 02/28/22 16:00 40 General Appearance: No Apparent Distress, Chronically ill, Obese Respiratory: Lungs Clear, No Respiratory Distress Cardiovascular: Regular Rate, Rhythm, No Murmur Gastrointestinal: Normal Bowel Sounds, Soft Extremity: Normal Inspection, Pedal Edema Skin: Normal Color, Warm/Dry Neurologic/Psychiatric: Alert, Disoriented, Motor Weakness Allergies: Coded Allergies: Penicillins (Unverified Allergy, Mild, HIVES, pt has rec Meropenem in the past, 10/21/21) duloxetine HCl (Verified Allergy, Mild, 11/16/19) Copy Copies To 1: VERENA LANCE MD Discharge Summary Date of Admission Feb 26, 2022 at 13:32 Date of Discharge Mar 01, 2022 at 14:00 Discharge Date: Mar 01, 2022 Discharge Time: 14:00 Admission Diagnosis Septic shock due to pneumonia Discharge Diagnosis Septic shock Pneumonia Lactic acidosis LILIANA on CKD Chronic brady Recurrent MDR-UTIs HTN HLD T2DM Dementia Obesity Poor prognosis Goals of care discussion (1) Septic shock Status: Acute (2) Pneumonia Status: Acute (3) Acute respiratory failure with hypoxia and hypercapnia Status: Acute (4) Lactic acidosis Status: Acute (5) Poor prognosis Status: Acute (6) Goals of care, counseling/discussion Status: Acute (7) Acute kidney injury superimposed on chronic kidney disease Status: Acute (8) Obesity Status: Chronic (9) T2DM (type 2 diabetes mellitus) Status: Chronic (10) History of ESBL E. coli infection Status: Chronic SAMI LAM MD Mar 01, 2022 17:12
== END 2022-03-01 14:00 | DRG 871 ==
LOC: ER 10:50 → EDUNIT# 10:50 → ICU 13:32
PROVIDERS: ADMIT Family Medicine; ATTEND Internal Medicine
PROC: 5A09457 Assistance with Respiratory Ventilation, 24-96 Consecutive Hours, Continuous Positive Airway Pressure (ICD-10-PCS; principal; 2022-02-26)
PROC: 5A0945A Assistance with Respiratory Ventilation, 24-96 Consecutive Hours, High Flow/Velocity Cannula (ICD-10-PCS; 2022-02-27)
DX: A41.9 Sepsis, unspecified organism (principal); J18.9 Pneumonia, unspecified organism; R65.21 Severe sepsis with septic shock; J96.02 Acute respiratory failure with hypercapnia; J96.01 Acute respiratory failure with hypoxia; B37.49 Other urogenital candidiasis; T83.511A Infection and inflammatory reaction due to indwelling urethral catheter, initial encounter; N17.9 Acute kidney failure, unspecified; Z16.12 Extended spectrum beta lactamase (ESBL) resistance; E87.29 Other acidosis; J44.9 Chronic obstructive pulmonary disease, unspecified; G47.33 Obstructive sleep apnea (adult) (pediatric); E11.22 Type 2 diabetes mellitus with diabetic chronic kidney disease; N18.9 Chronic kidney disease, unspecified; E78.00 Pure hypercholesterolemia, unspecified; I12.9 Hypertensive chronic kidney disease with stage 1 through stage 4 chronic kidney disease, or unspecified chronic kidney disease; E11.40 Type 2 diabetes mellitus with diabetic neuropathy, unspecified; K21.9 Gastro-esophageal reflux disease without esophagitis; E66.9 Obesity, unspecified; F41.9 Anxiety disorder, unspecified; F32.A Depression, unspecified; Z20.822 Contact with and (suspected) exposure to COVID-19; F03.90 Unspecified dementia, unspecified severity, without behavioral disturbance, psychotic disturbance, mood disturbance, and anxiety; Z79.4 Long term (current) use of insulin; Z68.38 Body mass index [BMI] 38.0-38.9, adult; I25.10 Atherosclerotic heart disease of native coronary artery without angina pectoris; K59.09 Other constipation; H91.90 Unspecified hearing loss, unspecified ear; Z95.5 Presence of coronary angioplasty implant and graft
CPT/HCPCS: 36415; 71045; 80053; 81000; 82805; 82947; 83605; 83735; 84100; 85007; 85025; 85027; 85610; 85730; 87040; 87081; 87088; 87636; 94640; 94660; 99291

== ENCOUNTER 2022-03-28 14:01 | Emergency (ER) | payer MEDICARE, MEDICAID ==
[~2022-03-28] VITALS: Ht 165 cm; Wt 103.5 kg
[~2022-03-28 14:01] MED LIST changes: +ALB0.5V INH; +ALBU8.5H6 IH; +ASCO-262 PO
--- NOTE | 2022-03-28 14:47 | Diagnostic Imaging Report ---
INDICATION: Shortness of breath Frontal chest obtained at 0217 p.m. Compared with 02/26/2022 There is cardiomegaly. There is central vascular congestion with patchy bibasilar infiltrates. There is no pneumothorax or gross pleural fluid. IMPRESSION: Cardiomegaly and central vascular congestion with patchy bibasilar infiltrates, pneumonia not excluded. Dictated by: Dictated on workstation # [id number]
[2022-03-28 14:58] LABS: BASOPHILS % (AUTO) 0 % (0-10)
--- NOTE | 2022-03-28 14:59 | ED Respiratory ---
General Chief Complaint: Respiratory Problems Stated Complaint: SOA Nursing Triage Note: PT TO ED BY EMS WITH C/O SOA. EMS REPORTS NURSE AT [facility] IS WORRIED PT MAY BE SEPTIC BC BP WENT FROM 170S SYSTOLIC LAST NIGHT TO 128/71 TODAY. PT WEARS 6 L NC NORMALLY. Source: patient, EMS, [facility] records Exam Limitations: no limitations History of Present Illness Date Seen by Provider: Mar 28, 2022 Time Seen by Provider: 14:08 Initial Comments 76-year-old male presenting from the [facility] due to concerns for respiratory distress. The patient is on 6 L oxygen at baseline, continued to be on 6 L with oxygen saturation around 95%. EMS reports his blood pressure was elevated last night and has been more normal today. The patient states that he has been feeling short of breath for some time, has been worsening since his discharge from the hospital. He endorses a cough which he believes is worsening as well. He does not believe he has had fever. He is otherwise denying any new pain including chest pain, abdominal pain, or any other concerns. Allergies and Home Medications Allergies Coded Allergies: Penicillins (Unverified Allergy, Mild, HIVES, pt has rec Meropenem in the past, 10/21/21) duloxetine HCl (Verified Allergy, Mild, 11/16/19) Patient Home Medication List Home Medication List Reviewed: Yes Acetaminophen (Tylenol) 325 Mg Tablet, 650 MG PO Q4H PRN for PAIN/TEMP, (Reported) Entered as Reported by: TRISH GRANDE on 07/25/16 0901 Albuterol Sulfate (Albuterol Sulfate) 2.5 Mg/0.5 Ml Vial.neb, 3 ML NEB QID, (Reported) Entered as Reported by: CHEIKH AMARAL on 02/25/21 0923 Albuterol Sulfate (Albuterol Sulfate) 2.5 Mg/0.5 Ml Vial.neb, 2.5 MG INH Q4H PRN for SHORTNESS OF BREATH, (Reported) Entered as Reported by: CHEIKH AMARAL on 02/27/22 1131 Amlodipine Besylate (Amlodipine Besylate) 5 Mg Tablet, 5 MG PO DAILY, (Reported) Entered as Reported by: CHEIKH AMARAL on 10/21/21 1550 Ascorbate Calcium (Vitamin C) 500 Mg Tablet, 1,500 MG PO DAILY, (Reported) Entered as Reported by: CHEIKH AMARAL on 02/27/22 1131 Benzonatate (Tessalon Perles) 100 Mg Capsule, 100 MG PO TID PRN for COUGH, (Reported) Entered as Reported by: CHEIKH AMARAL on 02/25/21 0923 Bethanechol Chloride (Bethanechol Chloride) 50 Mg Tablet, 50 MG PO QIDACHS, (Reported) Entered as Reported by: CHEIKH AMARAL on 12/30/20 1505 Cefdinir (Cefdinir) 300 Mg Capsule, 300 MG PO BID Prescribed by: SAMI LAM on 03/01/22 1148 Cholestyramine (with Sugar) (Cholestyramine Packet) 4 Gm Powd.pack, 1 PACKET PO DAILY PRN for DIARRHEA, (Reported) Entered as Reported by: CHEIKH AMARAL on 02/25/21 0923 Citalopram Hydrobromide (Citalopram HBr) 20 Mg Tablet, 20 MG PO DAILY, (Reported) Entered as Reported by: WESTON DYSON on 05/31/15 1528 Dextromethorphan HBr/B-Sergio (Cepacol Sorethroat-Cough Jeyson) 5 Mg-7.5 Mg Lozenge, 1 EACH PO EVERY 2 HOURS PRN for COUGH, (Reported) Entered as Reported by: CHEIKH AMARAL on 10/21/21 1550 Docusate Sodium (Docusate Sodium) 100 Mg Capsule, 100 MG PO BID, (Reported) Entered as Reported by: WESTON DYSON on 05/31/15 1535 Famotidine (Acid Natural Resources Technician (FAMOTIDINE)) 20 Mg Tablet, 20 MG PO BID, (Reported) Entered as Reported by: CHEIKH AMARAL on 02/27/22 113 Fluconazole (Fluconazole) 100 Mg Tablet, 100 MG PO DAILY, (Reported) Entered as Reported by: CHEIKH AMARAL on 02/27/22 1131 Fluticasone/Vilanterol (Breo Ellipta 100-25 Mcg INH) 100 Mcg-25 Mcg/Dose Blst.w.dev, 1 PUFF INH DAILY, (Reported) Entered as Reported by: CHEIKH AMARAL on 02/25/21 09 Furosemide (Furosemide) 20 Mg Tablet, 20 MG PO DAILY, (Reported) Entered as Reported by: ANGI SKINNER on 06/06/17 0724 Guaifenesin (Mucus Relief) 600 Mg Tab.er.12h, 600 MG PO QID PRN for DRAINAGE, (Reported) Entered as Reported by: CHEIKH AMARAL on 02/25/21 09 Insulin Glargine,Hum.rec.anlog (Lantus) 100 Unit/Ml Vial, 30 UNIT SQ HS, (Reported) Entered as Reported by: CHEIKH AMARAL on 02/27/22 1131 Isosorbide Mononitrate (Isosorbide Mononitrate ER) 30 Mg Tab.er.24h, 30 MG PO DAILY, (Reported) Entered as Reported by: CHEIKH AMARAL on 02/25/21 09 Loperamide HCl (Imodium A-D) 2 Mg Capsule, 2 MG PO UD PRN for LOOSE STOOLS, (Reported) Entered as Reported by: CHEIKH AMARAL on 02/25/21 09 Losartan Potassium (Losartan Potassium) 50 Mg Tablet, 50 MG PO Q12H, (Reported) Entered as Reported by: CHEIKH AMARAL on 12/30/20 1505 Metoclopramide HCl (Metoclopramide HCl) 5 Mg Tablet, 5 MG PO ACHS, (Reported) Entered as Reported by: CHEIKH AMARAL on 01/16/22 0921 Metoprolol Tartrate (Metoprolol Tartrate) 50 Mg Tablet, 50 MG PO BID, (Reported) Entered as Reported by: JUAN TOLLIVER on 11/17/19 1322 Montelukast Sodium (Montelukast Sodium) 10 Mg Tablet, 10 MG PO DAILY, (Reported) Entered as Reported by: CHEIKH AMARAL on 02/25/21 09 Nystatin (Nystatin) 100,000 Unit/Gram Cream..g., 1 APPLIC TP TID, (Reported) Entered as Reported by: CHEIKH AMARAL on 10/21/21 1550 Ondansetron (Ondansetron Odt) 4 Mg Tab.rapdis, 4 MG PO Q4H PRN for NAUSEA/VOMITING-1ST LINE, (Reported) Entered as Reported by: CHEIKH AMARAL on 02/25/21 09 Pantoprazole Sodium (Pantoprazole Sodium) 40 Mg Tablet.dr, 40 MG PO DAILY, (Reported) Entered as Reported by: CHEIKH AMARAL on 01/16/22 0921 Polyethylene Glycol 3350 (Miralax) 17 Gram Powd.pack, 17 GM PO Q48H, (Reported) Entered as Reported by: CHEIKH AMARAL on 10/21/21 1550 Potassium Chloride (Potassium Chloride) 20 Meq Tablet.er, 20 MEQ PO DAILY, (Reported) Entered as Reported by: CHEIKH AMARAL on 04/29/19 1323 Risperidone (Risperidone) 2 Mg Tablet, 2 MG PO Q12H, (Reported) Entered as Reported by: WESTON DYSON on 03/22/16 1336 Simvastatin (Zocor) 10 Mg Tablet, 10 MG PO HS, (Reported) Entered as Reported by: LLOYD HOOKER on 10/24/16 1517 Tiotropium [place] (Spiriva Respimat 2.5MCG/ACTUATION) 4 Gm Mist.inhal, 2 PUFF IH DAILY, (Reported) Entered as Reported by: CHEIKH AMARAL on 04/29/19 1323 Trazodone HCl (Trazodone HCl) 150 Mg Tablet, 150 MG PO HS, (Reported) Entered as Reported by: WESTON DYSON on 03/22/16 1336 Review of Systems Review of Systems Constitutional: No fever EENTM: No blurred vision Respiratory: cough, short of breath Cardiovascular: No chest pain Gastrointestinal: No abdominal pain Genitourinary: other (Chronic Escalante in place) Musculoskeletal: no symptoms reported Skin: no symptoms reported Psychiatric/Neurological: No Symptoms Reported Hematologic/Lymphatic: No Symptoms Reported Immunological/Allergic: no symptoms reported Unable to be obtained due to the patient's mental status All Other Systems Reviewed Negative Unless Noted: Yes Past Uyelfaq-Usbgxb-Nqbhns Hx Patient Social History Tobacco Use?: No Use of E-Cig and/or Vaping dev: No Substance use?: No Alcohol Use?: No Pt feels they are or have been: No Immunizations Up To Date First/Initial COVID19 Vaccinat: 05/14/20 Second COVID19 Vaccination Evangelista: 06/03/20 Third COVID19 Vaccination Date: 02/21/21 Seasonal Allergies Seasonal Allergies: No Past Medical History Surgery/Hospitalization HX: pmh: depression, htn, gerd, edema, DM 2, copd, high cholesterol Surgeries: Yes (CARDIAC CATH 05/2017--PATENT STENT, NON-OCCLUSIIVE CAD--NO INTERVENTION) Cardiac, Coronary Stent, Eye Surgery, Transurethral Resection Respiratory: Yes (HX OF SEPSIS, O2 AT 3 L/NC CONTINUOUSLY; CHRONIC COUGH) Pneumonia, Chronic Bronchitis, Sleep Apnea, COPD Currently Using CPAP: Yes Cardiac: Yes (RBBB, LAFB; CARDIAC CATHS--STENT X 1) Chronic Edema/Swelling, Coronary Artery Disease, High Cholesterol, Hypertension Neurological: Yes Dementia, Neuropathy Reproductive Disorders: No Sexually Transmitted Disease: No HIV/AIDS: No Genitourinary: Yes (INDWELLING ESCALANTE, CHRONIC BILATERAL HYDRONEPHROSIS) Benign Prostatic Hyperpl, Prostate Problems, Neurogenic Bladder, UTI-Chronic Gastrointestinal: Yes Gastroesophageal Reflux, Chronic Constipation Musculoskeletal: Yes Arthritis, Chronic Back Pain Endocrine: Yes (THYROID NODULE) Diabetes, Insulin dep HEENT: Yes (ANGIOEDEMA OF TONGUE) Cataract Hearing Impairment: Hard of Hearing Cancer: No Psychosocial: Yes Sleep Difficulties, Anxiety, Depression Integumentary: No Blood Disorders: No Adverse Reaction/Blood Tranf: No Family Medical History Family history: Hypertension 03 FATHER Stroke 03 MOTHER PSH: -CATARACT SURGERY -TURP 10/31/[address] LAROSE -CARDIAC CATHS--STENT X 1--LAST CATH 05/2017--PATENT STENT, NON-OCCLUSIVE CAD, NO INTERVENTION -CHOLECYSTETCOMY Physical Exam Vital Signs - First Documented 03/28/22 14:02 Temp 37.7 Pulse 97 Resp 24 B/P (MAP) 129/54 (79) Pulse Ox 94 O2 Delivery Nasal Cannula O2 Flow Rate 6.00 Capillary Refill : Height: 5'9.00" Weight: 260lbs. 0.0oz. 117.844763qh; 38.00 BMI Method:Stated General Appearance: mild distress, other (Chronically ill-appearing) Eyes: Bilateral Eye Normal Inspection HEENT: PERRL/EOMI, normal ENT inspection, pharynx normal Neck: non-tender, full range of motion, supple, normal inspection Respiratory: chest non-tender, accessory muscle use, crackles Cardiovascular: regular rate, rhythm, no murmur Gastrointestinal: normal bowel sounds, non tender, soft; No guarding Extremities: normal range of motion, non-tender, normal inspection, no calf tenderness, normal capillary refill, pedal edema Neurologic/Psychiatric: no motor/sensory deficits, other (Talking but confused, alert, nonfocal exam) Skin: normal color, warm/dry Lymphatic: no adenopathy Progress/Results/Core Measures Suspected Sepsis SIRS Temperature: Pulse: 97 Respiratory Rate: 24 Laboratory Tests 03/28/22 14:48: White Blood Count 14.3H Blood Pressure 129 /54 Mean: 79 Laboratory Tests 03/28/22 14:48: Creatinine 2.05H, Platelet Count 169, Total Bilirubin 0.7 Results/Orders Lab Results Laboratory Tests Test 03/28/22 14:48 03/28/22 15:00 03/28/22 15:20 03/28/22 15:50 Range/Units White Blood Count 14.3 H 4.3-11.0 10^3/uL Red Blood Count 4.57 4.30-5.52 10^6/uL Hemoglobin 12.5 L 13.3-17.7 g/dL Hematocrit 39 L 40-54 % Mean Corpuscular Volume 86 80-99 fL Mean Corpuscular Hemoglobin 27 25-34 pg Mean Corpuscular Hemoglobin Concent 32 32-36 g/dL Red Cell Distribution Width 15.7 H 10.0-14.5 % Platelet Count 169 130-400 10^3/uL Mean Platelet Volume 11.0 9.0-12.2 fL Immature Granulocyte % (Auto) 1 % Neutrophils (%) (Auto) 81 H 42-75 % Lymphocytes (%) (Auto) 10 L 12-44 % Monocytes (%) (Auto) 8 0-12 % Eosinophils (%) (Auto) 1 0-10 % Basophils (%) (Auto) 0 0-10 % Neutrophils # (Auto) 11.6 H 1.8-7.8 10^3/uL Lymphocytes # (Auto) 1.5 1.0-4.0 10^3/uL Monocytes # (Auto) 1.1 H 0.0-1.0 10^3/uL Eosinophils # (Auto) 0.1 0.0-0.3 10^3/uL Basophils # (Auto) 0.0 0.0-0.1 10^3/uL Immature Granulocyte # (Auto) 0.1 0.0-0.1 10^3/uL Neutrophils % (Manual) 86 % Lymphocytes % (Manual) 6 % Monocytes % (Manual) 8 % Eosinophils % (Manual) 1 % Percent Immature Platelet Fraction 5.5 0.0-7.6 % Blood Morphology Comment NORMAL Sodium Level 134 L 135-145 MMOL/L Potassium Level 5.1 H 3.6-5.0 MMOL/L Chloride Level 96 L 98-107 MMOL/L Carbon Dioxide Level 25 21-32 MMOL/L Anion Gap 13 5-14 MMOL/L Blood Urea Nitrogen 24 H 7-18 MG/DL Creatinine 2.05 H 0.60-1.30 MG/DL Estimat Glomerular Filtration Rate 33 BUN/Creatinine Ratio 12 Glucose Level 167 H 70-105 MG/DL Calcium Level 9.1 8.5-10.1 MG/DL Corrected Calcium 9.4 8.5-10.1 MG/DL Magnesium Level 1.7 1.6-2.4 MG/DL Total Bilirubin 0.7 0.1-1.0 MG/DL Aspartate Amino Transf (AST/SGOT) 17 5-34 U/L Alanine Aminotransferase (ALT/SGPT) 12 0-55 U/L Alkaline Phosphatase 83 40-136 U/L Troponin I < 0.028 <0.028 NG/ML B-Type Natriuretic Peptide 48.8 <100.0 PG/ML Total Protein 7.3 6.4-8.2 GM/DL Albumin 3.6 3.2-4.5 GM/DL Lipase 12 8-78 U/L Influenza Type A (RT-PCR) Not Detected Not Detecte Influenza Type B (RT-PCR) Not Detected Not Detecte SARS-CoV-2 RNA (RT-PCR) Not Detected Not Detecte Urine Color YELLOW Urine Clarity SL CLOUDY Urine pH 6.0 5-9 Urine Specific [place] >=1.030 1.016-1.022 Urine Protein 2+ H NEGATIVE Urine Glucose (UA) NEGATIVE NEGATIVE Urine Ketones TRACE H NEGATIVE Urine Nitrite NEGATIVE NEGATIVE Urine Bilirubin NEGATIVE NEGATIVE Urine Urobilinogen 1.0 < = 1.0 MG/DL Urine Leukocyte Esterase 1+ H NEGATIVE Urine RBC (Auto) 2+ H NEGATIVE Urine RBC 2-5 H /HPF Urine WBC 10-25 H /HPF Urine Squamous Epithelial Cells NONE /HPF Urine Renal Epithelial Cells NONE /HPF Urine Crystals NONE /LPF Urine Bacteria LARGE H /HPF Urine Casts NONE /LPF Urine Mucus NEGATIVE /LPF Urine Culture Indicated YES My Orders Orders - INGE CHEN MD Chest 1 View, Ap/Pa Only (03/28/22 14:14) Bnp Caroline (03/28/22 14:14) Cbc With Automated Diff (03/28/22 14:14) Comprehensive Metabolic Panel (03/28/22 14:14) Lipase (03/28/22 14:14) Magnesium (03/28/22 14:14) Protime With Inr (03/28/22 14:14) Partial Thromboplastin Time (03/28/22 14:14) Troponin I Caroline (03/28/22 14:14) Influenza A And B By Pcr (03/28/22 14:14) Ed Iv/Invasive Line Start (03/28/22 14:14) Ekg Tracing (03/28/22 14:14) O2 (03/28/22 14:14) Monitor-Rhythm Ecg Trace Only (03/28/22 14:14) Covid 19 Inhouse Test (03/28/22 14:14) Manual Differential (03/28/22 14:48) Ua Culture If Indicated (03/28/22 15:13) Furosemide Injection (Lasix Injection) (03/28/22 15:45) Ertapenem (Non-Formulary) (Invanz (Non-F (03/28/22 15:36) Urine Culture (03/28/22 15:20) Vital Signs/I&O 03/28/22 14:02 Temp 37.7 Pulse 97 Resp 24 B/P (MAP) 129/54 (79) Pulse Ox 94 O2 Delivery Nasal Cannula O2 Flow Rate 6.00 Capillary Refill : Blood Pressure Mean: 79 Progress Note : Progress Note 76-year-old male with above history coming in due to increasing respiratory demands per the [facility]. Patient confused and not really adding to the history. He was on his baseline 6 L oxygen with normal saturation. Did have s ome crackles on lung exam. An IV was placed with ultrasound guidance by myself. The patient likely would benefit from some Lasix, however his blood pressure has been trending down while in the ER. Concerns for likely pneumonia as well as UTI. I reviewed his previous microbiology reports, and he has previously grown out ESBL E. coli and required ertapenem. We will start him on IV or ertapenem here in the ER. I discussed with the patient being admitted to the hospital versus going back to the [facility] on hosp[facility]. He states he would like to peacefully at the [facility] on hospice. Given his chronic medical problems with him continuing to worsen, I believe this is appropriate. ECG Initial ECG Impression Date: Mar 28, 2022 Initial ECG Impression Time: 15:03 Initial ECG Rate: 101 Initial ECG Rhythm: S.Tach Comment Wide QRS with a right bundle branch block, no STEMI Diagnostic Imaging Diagonstic Imaging: Xray Plain Films/CT/US/NM/MRI: chest Comments [facility]. [place], [place] NAME: [facility]O [facility] REC#: [id number] PT STATUS: REG ER : 1945 PHYSICIAN: INGE CHEN MD ADMIT DATE: 03/28/22/ER Draft Date of Exam:03/28/22 CHEST 1 VIEW, AP/PA ONLY INDICATION: Shortness of breath Frontal chest obtained at 0217 p.m. Compared with 02/26/2022 There is cardiomegaly. There is central vascular congestion with patchy bibasilar infiltrates. There is no pneumothorax or gross pleural fluid. IMPRESSION: Cardiomegaly and central vascular congestion with patchy bibasilar infiltrates, pneumonia not excluded. Dictated on workstation # [id number] Dict: 03/28/22 1442 Trans: 03/28/22 1446 [facility] [id number] Interpreted by: TAY TOVAR MD Electronically signed by: Departure Impression Primary Impression: Chronic respiratory failure Qualified Codes: J96.11 - Chronic respiratory failure with hypoxia Additional Impression: UTI (urinary tract infection) Qualified Codes: N30.00 - Acute cystitis without hematuria Disposition: 01 HOME, SELF-CARE Condition: Unchanged Departure-Patient Inst. Decision time for Depature: 15:58 Referrals: VERENA LANCE MD (PCP/Family) Primary Care Physician Patient Instructions: Urinary Tract Infection, Adult ED Add. Discharge Instructions: You do likely have pneumonia and urinary tract infection. [facility] elected [facility]. If you have any change in which you would no longer like to do that, you could always come back to the hospital. INGE CHEN MD Mar 28, 2022 14:59
[2022-03-28 15:00] LABS: EOSINOPHILS # (AUTO) 0.1 10^3/uL (0.0-0.3); EOSINOPHILS % (AUTO) 1 % (0-10); HEMATOCRIT 39 % (40-54); HEMOGLOBIN 12.5 g/dL (13.3-17.7); LYMPHOCYTES # (AUTO) 1.5 10^3/uL (1.0-4.0); LYMPHOCYTES % (AUTO) 10 % (12-44); MEAN CORPUSCULAR HEMOGLOBIN 27 pg (25-34); MEAN CORPUSCULAR HGB CONC 32 g/dL (32-36); MEAN CORPUSCULAR VOLUME 86 fL (80-99); MONOCYTES # (AUTO) 1.1 10^3/uL (0.0-1.0); MONOCYTES % (AUTO) 8 % (0-12); NEUTROPHILS # (AUTO) 11.6 10^3/uL (1.8-7.8); NEUTROPHILS % (AUTO) 81 % (42-75); PLATELET COUNT 169 10^3/uL (130-400); WHITE BLOOD COUNT 14.3 10^3/uL (4.3-11.0)
[2022-03-28 15:16] LABS: ALBUMIN 3.6 GM/DL (3.2-4.5); CHLORIDE 96 MMOL/L (98-107); EOSINOPHILS % (MANUAL) 1 %; LYMPHOCYTES % (MANUAL) 6 %; MONOCYTES % (MANUAL) 8 %; NEUTROPHILS % (MANUAL) 86 %; POTASSIUM 5.1 MMOL/L (3.6-5.0); RBC MORPH NORMAL; SODIUM 134 MMOL/L (135-145)
[2022-03-28 15:17] LABS: CALCIUM 9.1 MG/DL (8.5-10.1)
[2022-03-28 15:18] LABS: GLUCOSE 167 MG/DL (70-105)
[2022-03-28 15:19] LABS: TOTAL PROTEIN 7.3 GM/DL (6.4-8.2)
[2022-03-28 15:20] LABS: CARBON DIOXIDE 25 MMOL/L (21-32)
[2022-03-28 15:21] LABS: BILIRUBIN,TOTAL 0.7 MG/DL (0.1-1.0)
[2022-03-28 15:22] LABS: ALKALINE PHOSPHATASE 83 U/L (40-136); CREATININE SERUM 2.05 MG/DL (0.60-1.30); GFR ESTIMATED 33
[2022-03-28 15:23] LABS: BUN/CREATININE RATIO 12
[2022-03-28 15:25] LABS: ALANINE AMINOTRANSFERASE 12 U/L (0-55); MAGNESIUM 1.7 MG/DL (1.6-2.4)
[2022-03-28 15:26] LABS: LIPASE 12 U/L (8-78)
[2022-03-28 15:31] LABS: BILIRUBIN,URINE NEGATIVE (NEGATIVE); CLARITY,URINE SL CLOUDY; COLOR,URINE YELLOW; GLUCOSE, URINE (UA) NEGATIVE (NEGATIVE); KETONES,URINE TRACE (NEGATIVE); LEUKOCYTE ESTERASE ,URINE 1+ (NEGATIVE); NITRITE,URINE NEGATIVE (NEGATIVE); PROTEIN,URINE 2+ (NEGATIVE)
[2022-03-28] MEDS ORDERED: ERTAPENEM (NON-FORMULARY) 1,000 MG in NS (IVPB) 50 ML IV STA (15:36)
[2022-03-28 15:38] LABS: BACTERIA,URINE LARGE /HPF
[2022-03-28] MEDS ORDERED: FUROSEMIDE 40 MG/4 ML INJ (LASIX) IVP ONE (15:45)
[2022-03-28 16:40] VITALS: BP 69/35
== END 2022-03-28 16:50 | disposition home or self-care (01) ==
LOC: EDUNIT# 14:01 → ER 14:03
DX: J96.10 Chronic respiratory failure, unspecified whether with hypoxia or hypercapnia (principal); N39.0 Urinary tract infection, site not specified; E11.9 Type 2 diabetes mellitus without complications; J44.9 Chronic obstructive pulmonary disease, unspecified; Z79.4 Long term (current) use of insulin; Z87.448 Personal history of other diseases of urinary system; Z96.0 Presence of urogenital implants; Z99.81 Dependence on supplemental oxygen; Z20.822 Contact with and (suspected) exposure to COVID-19
CPT/HCPCS: 36415; 51702; 71045; 80053; 81000; 83690; 83735; 83880; 84484; 85007; 85027; 85610; 85730; 87077; 87088; 87186; 87636; 93005; 93041